=== PATIENT | male | born 1940 | race Caucasian/White ===

== ENCOUNTER 2016-10-30 07:24 | Day surgery (SDC) | payer OTHER, BC ==
[~2016-10-30 07:24] MED LIST: BORTEZOMIB SQ ONE
[2016-10-30] MEDS ORDERED: BORTEZOMIB (VELCADE) 2.5 MG/ML SUB-Q INJECTION SQ ONE (08:00)
[2016-10-30 10:06] LABS: BASOPHIL 0.5 % (0-2.0); EOSINOPHIL 2.5 % (0-4.5); MCH 31.9 pg (25.7-33.7); MCHC 32.7 g/dl (32.0-35.9); MEAN CELL VOLUME 97.5 fl (80-96); MEAN PLT VOLUME 9.2 fl (7.5-11.1); NEUTROPHILS 65.2 % (42.8-82.8); PLATELET COUNT 113 K/MM3 (134-434); RDW 15.3 % (11.9-15.9); WHITE BLOOD COUNT 5.6 K/mm3 (4.0-10.0)
[2016-10-30 15:19] VITALS: BP 117/69; PULSE 59; TEMP 97.9; BMI 27.1
== END 2016-10-30 15:26 | disposition home or self-care (01) ==
LOC: JINFUSION 07:24 → JONCCHEMO 07:24 → J7W 07:25 → JINFUSION 15:26
PROVIDERS: ATTEND Internal Medicine Hematology & Oncology
DX: Z51.11 Encounter for antineoplastic chemotherapy (principal); C90.00 Multiple myeloma not having achieved remission; I10 Essential (primary) hypertension; E78.00 Pure hypercholesterolemia, unspecified; M81.0 Age-related osteoporosis without current pathological fracture; G62.9 Polyneuropathy, unspecified
CPT/HCPCS: 96401; J9041; 36415; 85025

== ENCOUNTER 2016-11-06 09:45 | Day surgery (SDC) | payer OTHER, BC ==
[2016-11-06] MEDS ORDERED: BORTEZOMIB (VELCADE) 2.5 MG/ML SUB-Q INJECTION SQ ONE (11:00)
[2016-11-06 11:09] LABS: MCH 32.1 pg (25.7-33.7); MCHC 32.8 g/dl (32.0-35.9); MEAN CELL VOLUME 97.9 fl (80-96); MEAN PLT VOLUME 9.3 fl (7.5-11.1); PLATELET COUNT 131 K/MM3 (134-434); RDW 15.5 % (11.9-15.9); WHITE BLOOD COUNT 5.8 K/mm3 (4.0-10.0)
[2016-11-06 11:10] LABS: BASOPHIL 0.8 % (0-2.0); EOSINOPHIL 2.9 % (0-4.5); NEUTROPHILS 64.8 % (42.8-82.8)
[2016-11-06 17:07] VITALS: BP 129/78; PULSE 61; TEMP 97.6; BMI 27.1
== END 2016-11-06 13:00 | disposition home or self-care (01) ==
LOC: JONCCHEMO 09:45 → J7W 12:26 → JONCCHEMO 13:00
PROVIDERS: ATTEND Internal Medicine Hematology & Oncology
DX: Z51.11 Encounter for antineoplastic chemotherapy (principal); C90.00 Multiple myeloma not having achieved remission; I10 Essential (primary) hypertension; E78.00 Pure hypercholesterolemia, unspecified; M81.0 Age-related osteoporosis without current pathological fracture; G62.9 Polyneuropathy, unspecified
CPT/HCPCS: 96401; J9041; 36415; 85025

== ENCOUNTER 2016-11-13 07:12 | Day surgery (SDC) | payer OTHER, BC ==
[2016-11-13] MEDS ORDERED: BORTEZOMIB (VELCADE) 2.5 MG/ML SUB-Q INJECTION SQ ONE ×2 (08:00)
[2016-11-13 09:57] LABS: BASOPHIL 0.4 % (0-2.0); EOSINOPHIL 2.1 % (0-4.5); MCH 32.3 pg (25.7-33.7); MCHC 32.8 g/dl (32.0-35.9); MEAN CELL VOLUME 98.6 fl (80-96); MEAN PLT VOLUME 9.5 fl (7.5-11.1); NEUTROPHILS 74.8 % (42.8-82.8); PLATELET COUNT 138 K/MM3 (134-434); RDW 15.2 % (11.9-15.9); WHITE BLOOD COUNT 7.9 K/mm3 (4.0-10.0)
[2016-11-13 15:07] VITALS: BP 106/64; PULSE 62; TEMP 97.7
== END 2016-11-13 13:00 | disposition home or self-care (01) ==
LOC: JONCCHEMO 07:12 → J7W 10:39 → JONCCHEMO 13:00
PROVIDERS: ATTEND Internal Medicine Hematology & Oncology
PROC: 3E00X05 Introduction of Other Antineoplastic into Skin and Mucous Membranes, External Approach (ICD-10-PCS; principal; 2016-11-13)
DX: Z51.11 Encounter for antineoplastic chemotherapy (principal); C90.00 Multiple myeloma not having achieved remission; I10 Essential (primary) hypertension
CPT/HCPCS: 96401; J9041; 36415; 85025

== ENCOUNTER 2016-11-20 06:55 | Day surgery (SDC) | payer OTHER, BC ==
[2016-11-20] MEDS ORDERED: BORTEZOMIB (VELCADE) 2.5 MG/ML SUB-Q INJECTION SQ ONE (08:00)
[2016-11-20] MEDS ORDERED: ZOLEDRONIC ACID 4 MG in SODIUM CHLORIDE 100 ML IVPB ONE (09:00)
[2016-11-20 12:04] VITALS: BP 116/73; PULSE 58; TEMP 97
[2016-11-20 12:07] LABS: WHITE BLOOD COUNT 6.2 K/mm3 (4.0-10.0)
[2016-11-20 12:09] LABS: MCH 32.3 pg (25.7-33.7); MEAN CELL VOLUME 97.1 fl (80-96)
[2016-11-20 12:10] LABS: MCHC 33.2 g/dl (32.0-35.9); RDW 15.3 % (11.9-15.9)
[2016-11-20 12:11] LABS: MEAN PLT VOLUME 9.3 fl (7.5-11.1); NEUTROPHILS 69.3 % (42.8-82.8); PLATELET COUNT 111 K/MM3 (134-434)
[2016-11-20 12:12] LABS: EOSINOPHIL 3.1 % (0-4.5)
[2016-11-20 12:13] LABS: BASOPHIL 0.5 % (0-2.0)
== END 2016-11-20 12:00 | disposition home or self-care (01) ==
LOC: JONCCHEMO 06:55 → J7W 09:45 → JONCCHEMO 12:00
PROVIDERS: ATTEND Internal Medicine Hematology & Oncology
PROC: 3E01305 Introduction of Other Antineoplastic into Subcutaneous Tissue, Percutaneous Approach (ICD-10-PCS; principal; 2016-11-20)
PROC: 3E033GC Introduction of Other Therapeutic Substance into Peripheral Vein, Percutaneous Approach (ICD-10-PCS; 2016-11-20)
DX: Z51.11 Encounter for antineoplastic chemotherapy (principal); C90.00 Multiple myeloma not having achieved remission; I10 Essential (primary) hypertension
CPT/HCPCS: 96365; 96401; J3489; J9041; 36415; 85025

== ENCOUNTER 2016-12-05 19:31 | Emergency (ER) | payer OTHER, BC ==
[2016-12-05] MEDS ORDERED: SODIUM CHLORIDE 500 ML IV STA (20:42)
--- NOTE | 2016-12-05 20:56 | PDOC ---
History of Present Illness - General Chief Complaint: Injury Stated Complaint: FALL Time Seen by Provider: 12/05/16 20:12 History Source: Patient, Significant Other () Exam Limitations: No Limitations - History of Present Illness Initial Comments: 12/05/16 20:43 76yo Male patient w/ PmHx: Parotid CA, Multiple Myeloma (Dx: 4 yrs ago), Afib, Colon Resection with Colostomy, on chemotherapy presents to ED c/o Syncope with + LOC. Patient states while getting ready to go for chemotherapy yesterday, he passed out for a few seconds at home. 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 took B/p- 90/40 at that time. Patient states he would not have come in, but his is having pain in his pelvic region and unable to ambulate. He usually ambulates with walker or cane, but has not been able to get out of bed normally. Reports blood thinner use. Receives chemo injections ( IM every Friday, IV once a month). Patient also states he started a new chemo medication called "Revlaved." He denies CP, Abd pain, back pain, n/v/d, fever, confusion, disorientation, or any other complaints at this time. Dr. Wallace (Oncology) Dr. Lopez (PCP) Occurred: reports: yesterday (Morning) Severity: reports: moderate Pain Location: reports: lower extremity, other (Right ribs) Method of Injury: Yes: fall Modifying Factors: worse with: None, cold therapy, immobilization, pain medication, rest, other Loss of Consciousness: brief (seconds) Associated Symptoms (Fall): trouble walking Past History - Travel Traveled outside of the country in the last 30 days: No Close contact w/someone who was outside of country & ill: No - Past Medical History Allergies/Adverse Reactions: Allergies Allergy/AdvReac Type Severity Reaction Status Date / Time No Known Drug Allergies Allergy Verified 12/05/16 20:11 Home Medications: Ambulatory Orders Paroxetine HCl [Paxil -] 30 mg PO DAILY 01/05/16 Levothyroxine [Synthroid -] 50 mcg PO DAILY@0700 tablet NS 03/21/16 Pantoprazole Sodium [Protonix -] 40 mg PO DAILY tablet.ec NS 07/07/16 Valacyclovir HCl [Valtrex -] 500 mg PO DAILY tablet NS 03/21/16 Apixaban [Eliquis -] 5 mg PO BID tablet 07/11/16 Valsartan [Diovan] 80 mg PO DAILY tablet 07/11/16 Sotalol HCl [Betapace -] 80 mg PO DAILY 10/30/16 Pregabalin [Lyrica -] 50 mg PO BID 11/06/16 Lenalidomide [Revlimid] 10 mg PO DAILY 12/05/16 Baclofen [Lioresal -] 10 mg PO TID PRN #21 tablet 12/06/16 Anemia: Yes Asthma: No Cancer: Yes (multiple myeloma, melanoma, parotid) Cardiac Disorders: No CVA: No COPD: No CHF: No Dementia: No Diabetes: No GI Disorders: No Disorders: No HTN: Yes Hypercholesterolemia: No Liver Disease: No Seizures: No Thyroid Disease: No - Surgical History Abdominal Surgery: No Appendectomy: No Cardiac Surgery: No Cholecystectomy: No Lung Surgery: No Neurologic Surgery: No Orthopedic Surgery: Yes (VERTEBROPLASTY) - Immunization History Immunization Up to Date: Yes - Psycho/Social/Smoking Cessation Hx Anxiety: No Suicidal Ideation: No Smoking History: Never smoked Have you smoked in the past 12 months: No Number of Cigarettes Smoked Daily: 0 Information on smoking cessation initiated: No Hx Alcohol Use: No Drug/Substance Use Hx: No Substance Use Type: None Hx Substance Use Treatment: No Trauma Specific PMHX - Complaint Specific PMHX Arthritis: No Back Injury: No Neck Injury: No Hx Sacro Iliac Joint Dysfunction: No Review of Systems - Review of Systems Able to Perform ROS?: Yes Is the patient limited Yi proficient: No Constitutional: No: Chills, Fever, Malaise, Weakness HEENTM: No: Blurred Vision, Double Vision Respiratory: No: Cough, Shortness of Breath, Stridor, Wheezing Cardiac (ROS): Yes: Syncope. No: Chest Pain, Irregular Heart Rate, Lightheadedness, Palpitations, Chest Tightness ABD/GI: No: Constipated, Diarrhea, Nausea, Poor Appetite, Poor Fluid Intake, Rectal Bleeding, Vomiting, Abdominal cramping : No: Burning, Dysuria, Flank Pain, Hematuria, Pain, Urgency, Testicular Swelling, Testicular Pain Musculoskeletal: Yes: Joint Pain, Muscle Weakness, Other (Pelvic Pain). No: Back Pain, Muscle Pain, Neck Pain Integumentary: No: Bruising, Erythema, Pallor, Rash Neurological: Yes: Unsteady Gait. No: Headache, Paresthesia, Seizure, Tingling , Tremors, Weakness, Ataxia, Dizziness All Other Systems: Reviewed and Negative *Physical Exam - Vital Signs Last Vital Signs Temp Pulse Resp BP Pulse Ox 98.9 F 66 19 116/59 90 L 12/05/16 20:06 12/05/16 20:06 12/05/16 20:06 12/05/16 20:06 12/05/16 20:06 - Physical Exam General Appearance: Yes: Nourished, Appropriately Dressed, Mild Distress. No: Apparent Distress, Moderate Distress, Severe Distress Neck: positive: Trachea midline, Supple. negative: Rigid, Decreased range of motion, Stridor, Lymphadenopathy (R), Lymphadenopathy (L), Tender lateral, Tender midline Respiratory/Chest: positive: Lungs Clear, Decreased Breath Sounds. negative: Chest Tender, Respiratory Distress, Accessory Muscle Use, Labored Respiration, Rapid RR Cardiovascular: positive: Regular Rhythm, Regular Rate. negative: Edema, JVD, Murmur Gastrointestinal/Abdominal: positive: Soft, Decreased BS, Other (Colostomy Stoma pink w/o bleeding or pallor.). negative: Tender, Flat, Distended, Guarding, Rebound, Tenderness Male Genitalia: positive: normal genitalia. negative: discharge, testicular tenderness, testicular mass, epididymus tender, hematuria Musculoskeletal: positive: Normal Inspection. negative: CVA Tenderness Extremity: positive: Normal Capillary Refill, Tender (Right Hip), Pelvis Stable (with Tenderness.). negative: Normal Range of Motion, Calf Tenderness, Erythema , Inflammation Integumentary: positive: Normal Color, Dry, Warm. negative: Rash Neurologic: positive: dietitian teaching II-XII NML intact, Fully Oriented, Alert, Normal Mood/ Affect, Normal Response ED Treatment Course - LABORATORY CBC & Chemistry Diagram: 12/05/16 21:05 12/05/16 23:10 - RADIOLOGY Radiology Studies Ordered: Category Date Time Status CERVICAL SPINE CT W/O CONTR [CT] Stat CT Scan 12/05/16 20:[address] WITHOUT CONTRAST [CT] Stat CT Scan 12/05/16 20:40 Ordered CHEST PA & LAT [RAD] Stat Radiology 12/05/16 20:40 Ordered HIP & PELVIS-LEFT [RAD] Stat Radiology 12/05/16 20:40 Ordered HIP & PELVIS-RIGHT [RAD] Stat Radiology 12/05/16 20:40 Ordered RIBS-LEFT SIDE [RAD] Stat Radiology 12/05/16 20:40 Ordered Progress Note - Progress Note Progress Note: Patient refusing to be admitted to hospital at this time. Patient requesting IV hydration and d/c to home. States he will f/u with PCP. Will hydrate patient and d/c to home. states that if any change, she will return immediately. *DC/Admit/Observation/Transfer Diagnosis at time of Disposition: Syncope and collapse, Dehydration - Discharge Dispostion Disposition: HOME Condition at time of disposition: Stable Admit: No - Prescriptions Prescriptions: Baclofen [Lioresal -] 10 mg PO TID PRN #21 tablet PRN Reason: Musculoskeletal Pain - Referrals Referrals: Caren Lopez MD [Primary Care Provider] - - Patient Instructions Printed Discharge Instructions: DI for Syncope in Adults (Fainting), DI for Dehydration -- Adult Additional Instructions: FOLLOW UP WITH YOUR PRIMARY CARE PROVIDER WITHIN 2 DAYS FOR FURTHER EVALUATION. TAKE MEDICATIONS PRESCRIBED. INCREASE YOUR FLUID INTAKE. DRINK PLENTY WATER. RETURN IF SYMPTOMS WORSEN, OR ANY CONCERNS FOR FURTHER EVALUATION. Print Language: KAZAKH
[2016-12-05 21:12] VITALS: TEMP 98.9; BMI 25.0
[2016-12-05 21:14] LABS: BASOPHIL 0.2 % (0-2.0); EOSINOPHIL 2.2 % (0-4.5); MCHC 33.3 g/dl (32.0-35.9); MEAN CELL VOLUME 99.2 fl (80-96); MEAN PLT VOLUME 9.6 fl (7.5-11.1); NEUTROPHILS 78.3 % (42.8-82.8); PLATELET COUNT 150 K/MM3 (134-434); RDW 15.8 % (11.9-15.9)
[2016-12-05 21:32] LABS: INR 1.71 (0.82-1.09)
--- NOTE | 2016-12-05 21:35 | PDOC ---
[id number] 90 L 12/05/16 20:06 12/05/16 20:06 12/05/16 20:06 12/05/16 20:06 12/05/16 20:06 ED Treatment Course - LABORATORY CBC & Chemistry Diagram: 12/05/16 21:05 12/05/16 23:10 - ADDITIONAL ORDERS Additional order review: 12/05/16 21:05 RBC 3.42 L MCV 99.2 H MCHC 33.3 RDW 15.8 MPV 9.6 Neutrophils % 78.3 Lymphocytes % 4.5 L D Monocytes % 14.8 H Eosinophils % 2.2 Basophils % 0.2 Medical Decision Making - Medical Decision Making 12/05/16 21:34 agree with care from [employer] [facility] Clarence *DC/Admit/Observation/Transfer Diagnosis at time of Disposition: Syncope and collapse, Dehydration - Discharge Dispostion Disposition: HOME Condition at time of disposition: Stable - Prescriptions Prescriptions: Baclofen [Lioresal -] 10 mg PO TID PRN #21 tablet PRN Reason: Musculoskeletal Pain - Referrals Referrals: Caren Lopez MD [Primary Care Provider] - - Patient Instructions Printed Discharge Instructions: DI for Syncope in Adults (Fainting), DI for Dehydration -- Adult Additional Instructions: FOLLOW UP WITH YOUR PRIMARY CARE PROVIDER WITHIN 2 DAYS FOR FURTHER EVALUATION. TAKE MEDICATIONS PRESCRIBED. INCREASE YOUR FLUID INTAKE. DRINK PLENTY WATER. RETURN IF SYMPTOMS WORSEN, OR ANY CONCERNS FOR FURTHER EVALUATION. Print Language: CYMRAES - Post Discharge Activity
[2016-12-05] MEDS ORDERED: morphine CARPU-JECT 4 MG/1 ML DISP.SYRIN IVPUSH ONE (22:08)
[2016-12-05] MEDS ORDERED: morphine CARPU-JECT 4 MG/1 ML DISP.SYRIN ONE (22:12)
[2016-12-06 00:04] LABS: ALBUMIN 3.2 g/dl (3.4-5.0); ANION GAP 8 (8-16); CO2 29 mmol/L (21-32); CREATININE 1.2 mg/dL (0.7-1.3); GLUCOSE,RANDOM 101 mg/dL (74-106); SGOT/AST 21 U/L (15-37); SGPT/ALT 21 U/L (12-78)
[2016-12-06 00:07] LABS: ALK PHOS 59 U/L (45-117); BILIRUBIN,TOTAL 1.7 mg/dL (0.2-1.0); TROPONIN I < 0.02 ng/ml (0.00-0.05)
[2016-12-06 00:36] LABS: URINE APPEARANCE SLCLOUDY; URINE BILIRUBIN NEGATIVE (NEGATIVE); URINE BLOOD NEGATIVE (NEGATIVE); URINE COLOR YELLOW; URINE GLUCOSE (UA) NEGATIVE (NEGATIVE); URINE KETONE TRACE (NEGATIVE); URINE LEUK ESTERASE NEGATIVE (NEGATIVE); URINE NITRITE NEGATIVE (NEGATIVE); URINE UROBILINOGEN NEGATIVE E.U./dl (0.2-1.0)
[2016-12-06] MEDS ORDERED: METHOCARBAMOL 500 MG TABLET PO ONE (00:38)
[2016-12-06 00:51] LABS: URINE PROTEIN 2+ (NEGATIVE)
[2016-12-06] MEDS ORDERED: METHOCARBAMOL 500 MG TABLET ONE (00:55)
[2016-12-06 00:57] LABS: URINE BACTERIA RARE /hpf (NONE SEEN); URINE HYALINE CAST 4 /lpf; URINE MUCUS MODERATE; URINE RBC 2 /hpf (0-3); URINE WBC 8 /hpf (3-5)
[2016-12-06] MEDS ORDERED: SODIUM CHLORIDE 1,000 ML IV STA (01:44)
[2016-12-06 03:27] VITALS: BP 133/76; PULSE 58
--- NOTE | 2016-12-06 10:02 | EKG ---
Test Reason : Blood Pressure : / mmHG Vent. Rate : 064 BPM Atrial Rate : 064 BPM P-R Int : 198 ms QRS Dur : 088 ms QT Int : 428 ms P-R-T Axes : 003 019 046 degrees QTc Int : 441 ms NORMAL SINUS RHYTHM NORMAL ECG WHEN COMPARED WITH ECG OF 09-JUL-2016 11:16, NO SIGNIFICANT CHANGE WAS FOUND Confirmed by EDILMA ALICEA MD ([id number]) on 12/06/2016 10:02:26 AM Referred By: Confirmed By:EDILMA ALICEA MD
== END 2016-12-06 03:28 | disposition home or self-care (01) ==
LOC: JER 19:31
DX: R55 Syncope and collapse (principal); I48.91 Unspecified atrial fibrillation; Z79.01 Long term (current) use of anticoagulants; C90.00 Multiple myeloma not having achieved remission; D03.8 Melanoma in situ of other sites; Z93.3 Colostomy status
CPT/HCPCS: 36415; 70450-TC; 71010-TC; 71101-TC-RT; 72125-TC; 73523-TC; 80053; 81003; 81015; 82550; 84484; 85025; 85610; 93005; 93010; 99283-25

== ENCOUNTER 2017-01-09 15:32 | Observation (INO) | payer OTHER, BC ==
--- NOTE | 2017-01-09 16:08 | PDOC ---
History of Present Illness <Colette Cruz - Last Filed: 01/09/17 19:00> <Nayeli Fonseca - Last Filed: 01/09/17 20:02> <CesiaNoel - Last Filed: 01/09/17 20:09> - General Chief Complaint: Syncope/Near Syncope Stated Complaint: Syncope/Near Syncope Time Seen by Provider: 01/09/17 15:49 - History of Present Illness Initial Comments: 01/09/17 18:59 The patient is a 76 year old male with a past medical hx of Parotid CA, Multiple Myeloma (Dx: 4 yrs ago), Afib, Colon Resection with Colostomy who presents to the ED for evaluation of a syncopal episode this afternoon. The patient's son reports he was giving the patient a bath with the aide. The patient reports he felt fine during his bath. The son and his aide helped him to walk approximately 8 feet to the living room. The patient reports he started to feel a little weak so the son gave him a chair to sit in. The son reports he then lost consciousness for approximately 25 seconds after he sat. The patient reports he felt nauseous after this episode but he denies any vomiting. The son states he then appeared to be pale and diaphoretic. He states the aide checked his blood pressure following this episode and it was normal. Pt denies any chagne in his colostomy bag output - no blood/diarrhea. The patient denies chest pain, palpitations, SOB, headache, neck pain, abd pain , extremity pain, numbnes/tingling/weakness, cough, fever/chills. PCP: Dr. Lopez (Colette Cruz) Past History <Colette Cruz - Last Filed: 01/09/17 19:00> <Nayeli Fonseca - Last Filed: 01/09/17 20:02> - Past Medical History Anemia: Yes Asthma: No Cancer: Yes (multiple myeloma, melanoma, parotid) Cardiac Disorders: No CVA: No COPD: No CHF: No Dementia: No Diabetes: No GI Disorders: No Disorders: No HTN: Yes Hypercholesterolemia: No Liver Disease: No Seizures: No Thyroid Disease: No - Surgical History Abdominal Surgery: Yes (COLOSTOMY) Appendectomy: No Cardiac Surgery: No Cholecystectomy: No Lung Surgery: No Neurologic Surgery: No Orthopedic Surgery: Yes (VERTEBROPLASTY) - Immunization History Immunization Up to Date: Yes - Psycho/Social/Smoking Cessation Hx Anxiety: No Suicidal Ideation: No Smoking History: Never smoked Have you smoked in the past 12 months: No Number of Cigarettes Smoked Daily: 0 Hx Alcohol Use: No Drug/Substance Use Hx: No Substance Use Type: None Hx Substance Use Treatment: No <Noel Callaway - Last Filed: 01/09/17 20:09> - Past Medical History Allergies/Adverse Reactions: Allergies Allergy/AdvReac Type Severity Reaction Status Date / Time No Known Drug Allergies Allergy Verified 01/09/17 15:42 Home Medications: Ambulatory Orders Paroxetine HCl [Paxil -] 30 mg PO DAILY 01/05/16 Levothyroxine [Synthroid -] 50 mcg PO DAILY@0700 tablet NS 03/21/16 Pantoprazole Sodium [Protonix -] 40 mg PO DAILY tablet.ec NS 03/21/16 Valacyclovir HCl [Valtrex -] 500 mg PO DAILY tablet NS 03/21/16 Apixaban [Eliquis -] 5 mg PO BID tablet 07/11/16 Valsartan [Diovan] 80 mg PO DAILY tablet 07/11/16 Sotalol HCl [Betapace -] 80 mg PO DAILY 10/30/16 Pregabalin [Lyrica -] 50 mg PO BID 11/06/16 Lenalidomide [Revlimid] 10 mg PO DAILY 12/05/16 Baclofen [Lioresal -] 10 mg PO TID PRN #21 tablet 12/06/16 Cardiac Specific PMH - Complaint Specific PMHX Pacemaker: No <Noel Callaway - Last Filed: 01/09/17 20:09> Review of Systems - Review of Systems Able to Perform ROS?: Yes <Colette Cruz - Last Filed: 01/09/17 19:00> <Nayeli Fonseca - Last Filed: 01/09/17 20:02> <Noel Callaway - Last Filed: 01/09/17 20:09> - Review of Systems Comments:: 01/09/17 19:00 CONSTITUTIONAL: No reported: Fever, Chills, Diaphoresis, Generalized Weakness, Malaise, Loss of Appetite HEENT: No reported: Rhinorrhea, Nasal Congestion, Throat Pain, Throat Swelling, Difficulty Swallowing, Mouth Swelling, Ear Pain, Eye Pain, Visual Changes CARDIOVASCULAR: +Syncope. No reported: Chest Pain, Palpitations, Irregular Heart Rate, Lightheadedness, Peripheral Edema RESPIRATORY: No reported: Cough, Shortness of Breath, SOB with Exertion, Orthopnea, Wheezing , Stridor, Hemoptysis GASTROINTESTINAL: No reported: Abdominal pain, Abdominal Distension, Nausea, Vomiting, Diarrhea, Constipation, Melena, Hematochezia GENITOURINARY: No reported: Dysuria, Frequency, Urgency, Hesitancy, Flank Pain, Genital Pain MUSCULOSKELETAL: No reported: Myalgia, Arthralgia, Joint Swelling, Back pain, Neck Pain SKIN: No reported: Rash, Itching, Pallor HEMEATOLOGIC/IMMUNOLOGIC: No reported: Easy Bleeding, Easy Bruising, Lymphadenopathy, Frequent infections ENDOCRINE: No reported: Unexplained Weight Gain, Unexplained Weight Loss, Heat Intolerance , Cold Intolerance NEUROLOGIC: No reported: Headache, Focal Weakness, Paresthesias, Vertigo, Lightheadedness, Unsteady Gait, Seizure, Mental Status Changes, Incontinence PSYCHIATRIC: No reported: Anxiety, Depression (Colette Cruz) *Physical Exam <Colette Cruz - Last Filed: 01/09/17 19:00> <Nayeli Fonseca - Last Filed: 01/09/17 20:02> <Noel Callaway - Last Filed: 01/09/17 20:09> - Vital Signs Last Vital Signs Temp Pulse Resp BP Pulse Ox 98.4 F 74 16 103/66 95 01/09/17 15:42 01/09/17 15:42 01/09/17 15:42 01/09/17 15:42 01/09/17 15:42 - Physical Exam Comments: 01/09/17 19:00 GENERAL: The patient is awake, alert, and fully oriented, Nontoxic - in no acute distress. 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 ENT: Normal voice, Moist mucous membranes. NECK: Normal range of motion, supple LUNGS: Breath sounds equal, clear to auscultation bilaterally. No wheezes, no rhonchi, no rales. HEART: Regular rate and rhythm, normal S1 and S2 without murmur, rub or gallop. ABDOMEN: +colostomy in place, Soft, nontender, normoactive bowel sounds. No guarding, no rebound. . No CVA tenderness EXTREMITIES: Normal range of motion, no edema. No clubbing or cyanosis. No cords, erythema, or tenderness. NEUROLOGICAL: No facial assymetry, Normal speech, moving all 4 extremities spontaneously and symmetrically, PSYCH: Normal mood, normal affect. SKIN: Warm, Dry, normal turgor, (Colette Cruz) Heart Score/ECG Review <Colette Cruz - Last Filed: 01/09/17 19:00> <Nayeli Fonseca - Last Filed: 01/09/17 20:02> <Noel Callaway - Last Filed: 01/09/17 20:09> - ECG Impressions Comment:: 01/09/17 17:43 Twelve-lead EKG was performed and reviewed by me. There is normal sinus rhythm with a normal rate. Rate of 67 The axis is normal. The intervals are normal. There is normal R wave progression There are no ST or T wave abnormalities. Impression: Normal twelve-lead EKG (Noel Callaway) ED Treatment Course - LABORATORY CBC & Chemistry Diagram: 01/09/17 16:50 01/09/17 16:50 <Colette Cruz - Last Filed: 01/09/17 19:00> - LABORATORY CBC & Chemistry Diagram: 01/09/17 18:00 01/09/17 18:00 <Nayeli Fonseca - Last Filed: 01/09/17 20:02> - LABORATORY CBC & Chemistry Diagram: 01/09/17 18:00 01/09/17 18:00 <Noel Callaway - Last Filed: 01/09/17 20:09> - ADDITIONAL ORDERS Additional order review: Laboratory Results 01/09/17 01/09/17 01/09/17 18:00 18:00 18:00 INR 1.24 H Sodium 138 Potassium 5.6 H D Chloride 102 Carbon Dioxide 26 Anion Gap 10 BUN 27 H Creatinine 1.0 Creat Clearance w eGFR > 60 Random Glucose 93 Calcium 10.1 Magnesium Cancelled Total Bilirubin 0.7 D AST 36 D ALT 30 D Alkaline Phosphatase 132 H D Creatine Kinase 83 Troponin I < 0.02 Total Protein 9.1 H Albumin 3.5 01/09/17 01/09/17 16:50 16:50 INR Cancelled Sodium Cancelled Potassium Cancelled Chloride Cancelled Carbon Dioxide Cancelled Anion Gap Cancelled BUN Cancelled Creatinine Cancelled Creat Clearance w eGFR Cancelled Random Glucose Cancelled Calcium Cancelled Magnesium Cancelled Total Bilirubin Cancelled AST Cancelled ALT Cancelled Alkaline Phosphatase Cancelled Creatine Kinase Cancelled Troponin I Cancelled Total Protein Cancelled Albumin Cancelled 01/09/17 01/09/17 18:00 16:50 RBC 3.63 L Cancelled MCV 101.2 H Cancelled MCHC 32.9 Cancelled RDW 16.9 H Cancelled MPV 9.4 Cancelled Neutrophils % 78.4 Cancelled Lymphocytes % 8.0 D Cancelled Monocytes % 11.7 H Cancelled Eosinophils % 1.5 Cancelled Basophils % 0.4 Cancelled - RADIOLOGY Radiology Studies Ordered: Category Date Time Status CHEST X-RAY PORTABLE* [RAD] Stat Radiology 01/09/17 15:52 Completed - Medications Given in the ED: ED Medications Discontinued Medications Generic Name Dose Route Start Last Admin Trade Name Freq PRN Reason Stop Dose Admin Sodium Chloride 1,000 mls @ 1,000 mls/hr 01/09/17 17:06 01/09/17 17:41 Normal Saline - IV 01/09/17 18:05 1,000 mls/hr .Q1H ONE Administration Medical Decision Making <Colette Cruz - Last Filed: 01/09/17 19:00> <Nayeli Fonseca - Last Filed: 01/09/17 20:02> <Noel Callaway - Last Filed: 01/09/17 20:09> - Medical Decision Making 01/09/17 18:[address] Lopez at 18:58, awaiting call back. 01/09/17 19:00 Dr. Lopez called back at 19:00. He states he agrees with the plan and management for the patient. If all testing comes back negative, Dr. Lopez states he is comfortable having the patient discharged home and having him follow up with him in the office as an outpatient. Dr. Lopez agrees if anything comes back positive to touch base with him and come up with an alternative plan. (Colette Cruz) 01/09/17 20:[address] Caren Lopez (via answering service) at 20:02 Awaiting call back (Nayeli Fonseca) 01/09/17 17:16 76y M hx of parotid ca, MM, afib on a/c, colon resection with colstomy presents with episoe of syncope today, had taken a shower and was feeling well, as he was getting out he felt weak, sat down, then syncopized for approx 20 seconds, no associated pain. exam unremarkble ?orthostasis, anemia, emtabolic derangement, arrythmia will ck labs, vidya hydrate with fluids will obtain ekg to r/o arrythmia will reassess will discuss with dr. lopez 01/09/17 20:04 labs reveiewed noted mild hyperkalemia case dw dr. lopez and dr. ludwig sine this is the 2ndtime pt syncopized, will observe the pt in telmetry pt currelyt asymptomatic Case discussed in detail with admitting physician including history, physical exam and ancillary studies. Admitting physician has assumed care for the patient, will follow all pending diagnostics and will complete the evaluation and treatment. (Noel Callaway) *DC/Admit/Observation/Transfer <Colette Cruz - Last Filed: 01/09/17 19:00> <Nayeli Fonseca - Last Filed: 01/09/17 20:02> - Discharge Dispostion Admit: Yes <Noel Callaway - Last Filed: 01/09/17 20:09> Diagnosis at time of Disposition: Syncope - Discharge Dispostion Condition at time of disposition: Guarded - Referrals Referrals: Caren Lopez MD [Primary Care Provider] - - Attestations Scribe Attestion: 01/09/17 18:59 Documentation prepared by Colette Cruz, acting as medical education manager for Noel Callaway MD, /DO. (Colette Cruz)
[2017-01-09] MEDS ORDERED: SODIUM CHLORIDE 1,000 ML IV ONE (17:06)
[2017-01-09 18:58] LABS: BASOPHIL 0.4 % (0-2.0); EOSINOPHIL 1.5 % (0-4.5); MCH 33.3 pg (25.7-33.7); MCHC 32.9 g/dl (32.0-35.9); MEAN CELL VOLUME 101.2 fl (80-96); MEAN PLT VOLUME 9.4 fl (7.5-11.1); NEUTROPHILS 78.4 % (42.8-82.8); PLATELET COUNT 234 K/MM3 (134-434); RDW 16.9 % (11.9-15.9); WHITE BLOOD COUNT 10.5 K/mm3 (4.0-10.0)
[2017-01-09 19:04] LABS: INR 1.24 (0.82-1.09); PROTHROMBIN TIME (PATIENT) 13.7 SEC (9.98-11.88)
[2017-01-09 19:19] LABS: ALBUMIN 3.5 g/dl (3.4-5.0); ALK PHOS 132 U/L (45-117); ANION GAP 10 (8-16); BILIRUBIN,TOTAL 0.7 mg/dL (0.2-1.0); CALCIUM 10.1 mg/dL (8.5-10.1); CO2 26 mmol/L (21-32); COCKROFT - GAULT 72.57; GLUCOSE,RANDOM 93 mg/dL (74-106); SGOT/AST 36 U/L (15-37); SGPT/ALT 30 U/L (12-78); TOT PROT 9.1 g/dl (6.4-8.2); TROPONIN I < 0.02 ng/ml (0.00-0.05)
[2017-01-09 20:00] LABS: MAGNESIUM 2.1 mg/dL (1.8-2.4)
[2017-01-10 00:35] LABS: URINE APPEARANCE CLEAR; URINE BILIRUBIN NEGATIVE (NEGATIVE); URINE BLOOD NEGATIVE (NEGATIVE); URINE COLOR YELLOW; URINE GLUCOSE (UA) NEGATIVE (NEGATIVE); URINE KETONE TRACE (NEGATIVE); URINE LEUK ESTERASE NEGATIVE (NEGATIVE); URINE NITRITE NEGATIVE (NEGATIVE); URINE UROBILINOGEN NEGATIVE E.U./dl (0.2-1.0)
[2017-01-10 00:56] LABS: URINE PROTEIN 1+ (NEGATIVE)
[2017-01-10 01:10] LABS: URINE HYALINE CAST 10 /lpf; URINE MUCUS FEW; URINE RBC <1 /hpf (0-3); URINE WBC 2 /hpf (3-5)
[2017-01-10] MEDS ORDERED: BACLOFEN 10 MG TABLET (FP) PO PRN (02:25)
[2017-01-10] MEDS: LEVOTHYROXINE NA 50 MCG TABLET (FP) PO SCH (06:14)
[2017-01-10 08:15] LABS: MCH 33.7 pg (25.7-33.7); MCHC 33.4 g/dl (32.0-35.9); MEAN CELL VOLUME 100.9 fl (80-96); MEAN PLT VOLUME 8.4 fl (7.5-11.1); PLATELET COUNT 190 K/MM3 (134-434); RDW 16.4 % (11.9-15.9); WHITE BLOOD COUNT 6.6 K/mm3 (4.0-10.0)
[2017-01-10 09:24] LABS: ALBUMIN 3.1 g/dl (3.4-5.0); ALK PHOS 112 U/L (45-117); ANION GAP 10 (8-16); BILIRUBIN,TOTAL 0.9 mg/dL (0.2-1.0); CALCIUM 9.1 mg/dL (8.5-10.1); CO2 25 mmol/L (21-32); COCKROFT - GAULT 116.27; CREATININE 0.6 mg/dL (0.7-1.3); GLUCOSE,RANDOM 89 mg/dL (74-106); SGOT/AST 20 U/L (15-37); SGPT/ALT 22 U/L (12-78)
[2017-01-10] MEDS ORDERED: SOTALOL HCL 80 MG TABLET (FP) PO SCH (10:00)
[2017-01-10] MEDS: PAROXETINE HCL 20 MG, PAROXETINE HCL 10 MG PO SCH (10:03)
[2017-01-10] MEDS: PANTOPRAZOLE 40 MG TABLET (FP) PO SCH (10:03)
[2017-01-10] MEDS: valACYclovir HCL 500 MG TABLET (FP) PO SCH (10:03)
[2017-01-10] MEDS: VALSARTAN 80 MG TABLET (UD) PO SCH (10:03)
[2017-01-10] MEDS: APIXABAN 5 MG TABLET PO SCH ×2 (10:03→21:34)
[2017-01-10] MEDS: PREGABALIN 50 MG CAPSULE PO SCH ×2 (10:03→21:34)
--- NOTE | 2017-01-10 10:40 | HP ---
Admitting History and Physical - Primary Care Physician PCP: Caren Lopez - Admission Chief Complaint: Transient loss of conciousness History of Present Illness: 76 yrs old man multiple medical co-morbidities present after an episode of TLOC after taking bath, Patient has H/O HTN, Non-obstructive CAD, Paroxysmal Afib rate controlled on AC, Multiple myeloma and rt carotid CA s/p resection and RT, previously evaluated for Syncope in the past, patient took and shower with the help of his son and AID, after shower , while he was walking felt weak and Dizz , sat down on a chair and passed out for 3 seconds, witnessed by son, no seizure activity, no incontinence, to tongue bite no c/o chest pain or palpitation before or after the episode patient experienced nausea and diaphoresis, no post event confusion or focal weakness, patient was brought to [facility] for evaluation remained asymptomatic over night History Source: Patient, Family Member Limitations to Obtaining History: No Limitations - Past Medical History 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 No: Bronchitis (no chronic sputum production says current sputum production isnew) Renal/: Yes: BPH, Neurogenic Bladder, UTI, Other Heme/Onc: Yes: Cancer (Parotid cancer, melanoma), Other (Multiple Myeloma) Infectious Disease: Yes: Other (fever possible aspiration pneumonia) ENT: Yes: Other (legally blind right eye) Dermatology: Yes: Melanoma - Smoking History Smoking history: Never smoked Have you smoked in the past 12 months: No Aproximately how many cigarettes per day: 0 - Alcohol/Substance Use Hx Alcohol Use: No - Social History ADL: Support Services History of Recent Travel: No Home Medications - Allergies Allergies/Adverse Reactions: Allergies Allergy/AdvReac Type Severity Reaction Status Date / Time No Known Drug Allergies Allergy Verified 01/09/17 15:42 - Home Medications Home Medications: Ambulatory Orders Paroxetine HCl [Paxil -] 30 mg PO DAILY 01/05/16 Levothyroxine [Synthroid -] 50 mcg PO DAILY@0700 tablet NS 03/21/16 Pantoprazole Sodium [Protonix -] 40 mg PO DAILY tablet.ec NS 03/21/16 Valacyclovir HCl [Valtrex -] 500 mg PO DAILY tablet NS 03/21/16 Apixaban [Eliquis -] 5 mg PO BID tablet 07/11/16 Valsartan [Diovan] 80 mg PO DAILY tablet 07/11/16 Sotalol HCl [Betapace -] 80 mg PO DAILY 10/30/16 Pregabalin [Lyrica -] 50 mg PO BID 11/06/16 Lenalidomide [Revlimid] 10 mg PO DAILY 12/05/16 Baclofen [Lioresal -] 10 mg PO TID PRN #21 tablet 12/06/16 Review of Systems - Review of Systems Constitutional: reports: Diaphoresis, Malaise Cardiovascular: reports: No Symptoms Respiratory: reports: No Symptoms Gastrointestinal: reports: Nausea Physical Examination Vital Signs: Vital Signs Temperature 98.8 F 01/10/17 10:00 Pulse Rate 77 01/10/17 10:00 Respiratory Rate 19 01/10/17 10:00 Blood Pressure 163/97 01/10/17 10:00 O2 Sat by Pulse Oximetry (%) 92 L 01/10/17 07:33 Labs: CBC, BMP 01/10/17 07:40 01/10/17 07:40 CBC, BMP Imaging - Results Chest X-ray: Report Reviewed (Rt 5th Rib Fracture ? Rt 4yh and 6th rib fracture and , ? Left 7th rib lateral arch fracture) EKG: Report Reviewed, Other (NSr at 67 ID 188 QTC 430 axis normal,) Problem List - Problems (1) Syncope Assessment/Plan: Most likely multi factorial, Neuro Cardiogenic or orthostatic, normal sinus Rhythm, evaluated by cardiology recommended out patient Tilt table/ event monitor Code(s): R55 - SYNCOPE AND COLLAPSE (2) CAD (coronary artery disease) Assessment/Plan: Non obstructive CAd no active issue cont home meds Code(s): I25.10 - ATHSCL HEART DISEASE OF [place] CORONARY ARTERY W/O ANG PCTRS Qualifiers: Qualified Code(s): I25.10 - Atherosclerotic heart disease of [place] coronary artery without angina pectoris (3) Multiple myeloma Assessment/Plan: Under Treatment with Oncologist Suppressive acyclovir and Chemotherapy as oncologist, patient has multiple skeletal mets and # ribs on Revlimid 10 mg, will call oncology consult. Code(s): C90.00 - MULTIPLE MYELOMA NOT HAVING ACHIEVED REMISSION Qualifiers: Qualified Code(s): C90.00 - Multiple myeloma not having achieved remission (4) PAF (paroxysmal atrial fibrillation) Assessment/Plan: At present in NSR on Apaxiban cont all home meds Stotalol , evaluated by Cardiology consult Code(s): I48.0 - PAROXYSMAL ATRIAL FIBRILLATION (5) HTN (hypertension) Assessment/Plan: Well controlled cont home meds Code(s): I10 - ESSENTIAL (PRIMARY) HYPERTENSION Assessment/Plan Active Medications Generic Name Dose Route Start Last Admin Trade Name Freq PRN Reason Stop Dose Admin Apixaban 5 mg 01/10/17 10:00 01/10/17 10:03 Eliquis - PO 5 mg BID BERE Administration Baclofen 10 mg 01/10/17 02:25 Lioresal - PO Q8H PRN Levothyroxine Sodium 50 mcg 01/10/17 07:00 01/10/17 06:14 Synthroid - PO 50 mcg DAILY@0700 BERE Administration Revlimid 10mg 1 each 01/10/17 10:00 PO DAILY BERE Pantoprazole Sodium 40 mg 01/10/17 10:00 01/10/17 10:03 Protonix - PO 40 mg DAILY BERE Administration Paroxetine HCl 20 mg/ 30 mg 01/10/17 10:00 01/10/17 10:03 Paroxetine HCl 10 mg PO 30 mg DAILY BERE Administration Pregabalin 50 mg 01/10/17 10:00 01/10/17 10:03 Lyrica - PO 50 mg BID BERE Administration Sotalol HCl 80 mg 01/10/17 10:00 01/10/17 10:02 Betapace - PO 80 mg DAILY BERE Administration Valacyclovir HCl 500 mg 01/10/17 10:00 01/10/17 10:03 Valtrex - PO 500 mg DAILY BERE Administration Valsartan 80 mg 01/10/17 10:00 01/10/17 10:03 Diovan - PO 80 mg DAILY BERE Administration
--- NOTE | 2017-01-10 11:27 | EKG ---
Test Reason : Blood Pressure : / mmHG Vent. Rate : 067 BPM Atrial Rate : 067 BPM P-R Int : 188 ms QRS Dur : 078 ms QT Int : 430 ms P-R-T Axes : 079 014 055 degrees QTc Int : 454 ms POOR DATA QUALITY, INTERPRETATION MAY BE ADVERSELY AFFECTED NORMAL SINUS RHYTHM NORMAL ECG WHEN COMPARED WITH ECG OF 05-DEC-2016 20:57, NO SIGNIFICANT CHANGE WAS FOUND Confirmed by EDILMA ALICEA MD ([id number]) on 01/10/2017 11:27:03 AM Referred By: Confirmed By:EDILMA ALICEA MD
--- NOTE | 2017-01-10 14:30 | CON.CARD ---
Consult Consult Specialty:: Cardiology Referred by:: Caren Lopez MD Reason for Consultation:: Syncope - History of Present Illness Chief Complaint: Syncope History of Present Illness: Patient is a 76 year old male well known to our service with underlying history of multiple myeloma with widespread spinal involvement with vertebral compression fractures, s/p multiple kyphoplasties and palliative radiation therapy and chemotherapy, melanoma and parotid cancer, PAF and PSVT, perforated viscus and pneumoperitoneum post exploratory laparotomy showing perforated bowel and purulent peritonitis requiring sigmoid resection, colostomy and abdominal washout, rt carotid CA s/p resection and RT. He presented after an episode of transient syncope after taking shower, preceded by prodromal sxs of nausea, dry heaves, sweats and light-headedness, sad down and subsequently passed out for 3 seconds, BP low, witnessed by son, no seizure activity, no incontinence, to tongue bite. He denies chest pain, palpitation, orthopnea, PND or LE edema, no further sxs since admission. - History Source History Provided By: Patient Limitations to Obtaining History: No Limitations - Past Medical History [employer]CH[employer]: Yes: Syncope, Other (Residual right lower neuron facial palsy) Cardio/Vascular: Yes: AFIB, CAD, HTN, Hyperlipdemia, Other (PSVT) Pulmonary: Yes: Other (few ronchi mostly on Rt base). No: Bronchitis (no chronic sputum production says current sputum production isnew) Renal/: Yes: BPH, Neurogenic Bladder, UTI, Other Infectious Disease: Yes: Other (fever possible aspiration pneumonia) ENT: Yes: Other (legally blind right eye) Dermatology: Yes: Melanoma - Alcohol/Substance Use Hx Alcohol Use: No - Smoking History Smoking history: Never smoked Have you smoked in the past 12 months: No Aproximately how many cigarettes per day: 0 - Social History ADL: Support Services History of Recent Travel: No Home Medications - Allergies Allergies/Adverse Reactions: Allergies Allergy/AdvReac Type Severity Reaction Status Date / Time No Known Drug Allergies Allergy Verified 01/09/17 15:42 - Home Medications Home Medications: Ambulatory Orders Paroxetine HCl [Paxil -] 30 mg PO DAILY 01/05/16 Levothyroxine [Synthroid -] 50 mcg PO DAILY@0700 tablet NS 03/21/16 Pantoprazole Sodium [Protonix -] 40 mg PO DAILY tablet.ec NS 07/07/16 Valacyclovir HCl [Valtrex -] 500 mg PO DAILY tablet NS 03/21/16 Apixaban [Eliquis -] 5 mg PO BID tablet 07/11/16 Valsartan [Diovan] 80 mg PO DAILY tablet 07/11/16 Sotalol HCl [Betapace -] 80 mg PO DAILY 10/30/16 Pregabalin [Lyrica -] 50 mg PO BID 11/06/16 Lenalidomide [Revlimid] 10 mg PO DAILY 12/05/16 Baclofen [Lioresal -] 10 mg PO TID PRN #21 tablet 12/06/16 Vital Signs: Vital Signs Temperature 98.8 F 01/10/17 10:00 Pulse Rate 77 01/10/17 10:00 Respiratory Rate 19 01/10/17 10:00 Blood Pressure 163/97 01/10/17 10:00 O2 Sat by Pulse Oximetry (%) 92 L 01/10/17 07:33 Constitutional: Yes: No Distress, Calm Neck: Yes: Supple Respiratory: Yes: Regular, CTA Bilaterally Gastrointestinal: Yes: Normal Bowel Sounds, Soft, Other (colostomy in place) Cardiovascular: Yes: Regular Rate and Rhythm JVD: No Carotid Bruit: No Heart Sounds: Yes: S1, S2 Edema: No - Other Data Labs, Other Data: CBC, BMP 01/10/17 07:40 01/10/17 07:40 INR, PTT INR 1.24 (0.82-1.09) H 01/09/17 18:00 NSR @ 67 Tele: No events Echo: Report Reviewed Ejection Fraction %: LVEF > or = 40 % Imaging - Results Chest X-ray: Report Reviewed (NAD) Assessment/Plan Echo: 01/09/2016 Normal LV size and fxn without sig valve abnl Assessment/Plan 1. Syncope suggestive of vasovagal/neurocardiogenic, ? autonomic dysfunction and labile hypertension referable to XRT to right carotid sinus body 2. PAF currently in sinus rhythm with [id number] score of 3 on A/C with NOAC's 3. PSVT ->SR 4. H/o diverticular perforation with purulent peritonitis post exploratory laparotomy with sigmoid resection, end colostomy and abdominal washout 5. CAD non obstructive CAD, angina pectoris 6. HTN 7. History of multiple myeloma 8. Head and neck CA with vertebral spine involvement post resection post radiation therapy and chemotherapy 9. Anemia PLAN: 1. Check orthostatic vital signs 2. Increase Betapace 80 bid 3. Continue Eliquis 5 bid with close monitoring of CBC 4. Continue Diovan 80 qd as tolerated 5. Consider upright tilt table testing as outpatient, addressed abortive maneuvers once prodromal sxs have been experienced 6. Thank you for consultative opportunity
--- NOTE | 2017-01-10 17:40 | PN ---
Progress Note (short form) - Note Progress Note: Patient seen and examined Well known to me. History of multiple myeloma-not in remission,. Parotid tumor s/p surgery and RT , peroforated dverticulum with peritonitis and colostomy, PAF, SVT, vertebral compression fractures--s/p vertebrop[lasty. Patient had fall weeks ago and has been unable to come to the officeforhis chemotherpy which has included velcade, decadron and revlimid. Current admission for syncope which occurred coming out of shower. No Known allergies Current Medications Generic Name Dose Route Start Last Admin Trade Name Freq PRN Reason Stop Dose Admin Apixaban 5 mg 01/10/17 10:00 01/10/17 10:03 Eliquis - PO 5 mg BID BERE Administration Baclofen 10 mg 01/10/17 02:25 Lioresal - PO Q8H PRN Levothyroxine Sodium 50 mcg 01/10/17 07:00 01/10/17 06:14 Synthroid - PO 50 mcg DAILY@0700 BERE Administration Revlimid 10mg 1 each 01/10/17 10:00 PO DAILY BERE Pantoprazole Sodium 40 mg 01/10/17 10:00 01/10/17 10:03 Protonix - PO 40 mg DAILY BERE Administration Paroxetine HCl 20 mg/ 30 mg 01/10/17 10:00 01/10/17 10:03 Paroxetine HCl 10 mg PO 30 mg DAILY BERE Administration Pregabalin 50 mg 01/10/17 10:00 01/10/17 10:03 Lyrica - PO 50 mg BID BERE Administration Sotalol HCl 80 mg 01/10/17 22:00 Betapace - PO BID BERE Valacyclovir HCl 500 mg 01/10/17 10:00 01/10/17 10:03 Valtrex - PO 500 mg DAILY BERE Administration Valsartan 80 mg 01/10/17 10:00 01/10/17 10:03 Diovan - PO 80 mg DAILY BERE Administration ROS-- no headaches, decreased vision right eye, no epistaxis, no chest pain, back pain supine 3-4 pain scale, motion --7 pain scale, no incontinence, functioning colostomy, paresthesias of LE's bilaterally no skin rashes Last Vital Signs Temp Pulse Resp BP Pulse Ox 97.9 F 81 20 103/71 92 L 01/10/17 14:00 01/10/17 15:37 01/10/17 14:00 01/10/17 15:37 01/10/17 07:33 HEENT:right eye scarring right facial Oropharynx: No thrush, No mucositis Neck: s/p RT - Nodes: Without adenopathy Cor: RSR, No murmurs, No gallops Lungs: Clear to P&A Abd: functioning colostomy Ext:No significant edema Skin: No rashes, Integument intact CBC, BMP 01/10/17 07:40 01/10/17 07:40 Impression Syncope- for evaluation Myeloma -not in remission - to resume chemotherapy when feasible Orthostasis- ?? RT effect on barorecptors PAF, SVT S/P diverticulitis, perforation, peritonitis, and colostomy. Plan: cardiac work up Resumption of chemotherapy in future.
[2017-01-10] MEDS: SOTALOL HCL 80 MG TABLET (FP) PO SCH (21:34)
[2017-01-11] MEDS ORDERED: PT OWN MED DRAWER 7, Y5N ONE ×2 (03:00→08:55)
[2017-01-11] MEDS: LEVOTHYROXINE NA 50 MCG TABLET (FP) PO SCH (06:04)
[2017-01-11 07:26] LABS: BASOPHIL 0.4 % (0-2.0); EOSINOPHIL 5.3 % (0-4.5); MCH 33.6 pg (25.7-33.7); MCHC 32.9 g/dl (32.0-35.9); MEAN CELL VOLUME 102.2 fl (80-96); MEAN PLT VOLUME 8.6 fl (7.5-11.1); NEUTROPHILS 67.5 % (42.8-82.8); PLATELET COUNT 184 K/MM3 (134-434); RDW 17.1 % (11.9-15.9); WHITE BLOOD COUNT 6.3 K/mm3 (4.0-10.0)
[2017-01-11 07:57] LABS: ALBUMIN 3.2 g/dl (3.4-5.0); ALK PHOS 113 U/L (45-117); ANION GAP 8 (8-16); BILIRUBIN,TOTAL 0.4 mg/dL (0.2-1.0); CALCIUM 9.1 mg/dL (8.5-10.1); CO2 27 mmol/L (21-32); COCKROFT - GAULT 116.27; CREATININE 0.6 mg/dL (0.7-1.3); GLUCOSE,RANDOM 94 mg/dL (74-106); SGOT/AST 25 U/L (15-37); SGPT/ALT 26 U/L (12-78); TOT PROT 8.1 g/dl (6.4-8.2)
[2017-01-11] MEDS: APIXABAN 5 MG TABLET PO SCH (09:13)
[2017-01-11] MEDS: PANTOPRAZOLE 40 MG TABLET (FP) PO SCH (09:13)
[2017-01-11] MEDS: VALSARTAN 80 MG TABLET (UD) PO SCH (09:13)
[2017-01-11] MEDS: PREGABALIN 50 MG CAPSULE PO SCH (09:13)
[2017-01-11] MEDS: valACYclovir HCL 500 MG TABLET (FP) PO SCH (09:13)
[2017-01-11] MEDS: SOTALOL HCL 80 MG TABLET (FP) PO SCH (09:13)
[2017-01-11] MEDS: PAROXETINE HCL 20 MG, PAROXETINE HCL 10 MG PO SCH (09:14)
[2017-01-11 10:43] VITALS: BP 148/82; PULSE 78; TEMP 98
--- NOTE | 2017-01-11 10:47 | PN ---
Progress Note, Physician Chief Complaint: Not in distress History of Present Illness: Patient was seen and examined. Awake and alert. Chart was reviewed Denies chest pain, SOB or palpitations Orthostasis earlier - Current Medication List Current Medications: Active Medications Apixaban (Eliquis -) 5 mg PO BID [facility] Last Admin: 01/11/17 09:13 Dose: 5 mg Baclofen (Lioresal -) 10 mg PO Q8H PRN Last Admin: 01/11/17 09:14 Dose: 10 mg Levothyroxine Sodium (Synthroid -) 50 mcg PO DAILY@0700 [facility] Last Admin: 01/11/17 06:04 Dose: 50 mcg Revlimid 10mg 1 each PO DAILY [facility] Pantoprazole Sodium (Protonix -) 40 mg PO DAILY [facility] Last Admin: 01/11/17 09:13 Dose: 40 mg Paroxetine HCl 20 mg/ (Paroxetine HCl 10 mg) 30 mg PO DAILY [facility] Last Admin: 01/11/17 09:14 Dose: 30 mg Pregabalin (Lyrica -) 50 mg PO BID [facility] Last Admin: 01/11/17 09:13 Dose: 50 mg Sotalol HCl (Betapace -) 80 mg PO BID [facility] Last Admin: 01/11/17 09:13 Dose: 80 mg Valacyclovir HCl (Valtrex -) 500 mg PO DAILY [facility] Last Admin: 01/11/17 09:13 Dose: 500 mg Valsartan (Diovan -) 80 mg PO DAILY [facility] Last Admin: 01/11/17 09:13 Dose: 80 mg - Objective Vital Signs: Vital Signs Temperature 98.0 F 01/11/17 10:00 Pulse Rate 78 01/11/17 10:00 Respiratory Rate 20 01/11/17 10:00 Blood Pressure 148/82 01/11/17 10:00 O2 Sat by Pulse Oximetry (%) 97 01/11/17 10:00 Neck: Yes: Supple Cardiovascular: Yes: Regular Rate and Rhythm, S1, S2 Respiratory: Yes: CTA Bilaterally Gastrointestinal: Yes: Normal Bowel Sounds, Soft, Other (colostomy). No: Tenderness Edema: No Additional Findings/Remarks: - Problems (1) PAF (paroxysmal atrial fibrillation) Code(s): I48.0 - PAROXYSMAL ATRIAL FIBRILLATION (2) PSVT (paroxysmal supraventricular tachycardia) Code(s): I47.1 - SUPRAVENTRICULAR TACHYCARDIA (3) Perforated sigmoid colon Code(s): K63.1 - PERFORATION OF INTESTINE (NONTRAUMATIC) (4) Pneumoperitoneum Code(s): K66.8 - OTHER SPECIFIED DISORDERS OF PERITONEUM (5) Sepsis Code(s): A41.9 - SEPSIS, UNSPECIFIED ORGANISM Qualifiers: Sepsis type: sepsis due to unspecified organism Qualified Code(s): A41.9 - Sepsis, unspecified organism (6) History of open sigmoidectomy Code(s): Z98.89 - OTHER SPECIFIED POSTPROCEDURAL STATES * DO NOT USE * Labs: CBC, BMP 01/11/17 06:00 01/11/17 06:00 INR, PTT INR 1.24 (0.82-1.09) H 01/09/17 18:00 Assessment/Plan 1. Syncope - orthostatic hypotension - suggestive of vasovagal/neurocardiogenic , possible autonomic dysfunction and labile hypertension referable to XRT to right carotid sinus body 2. PAF currently in sinus rhythm with [id number] score of 3 on A/C with NOAC 3. PSVT currently in sinus rhythm 4. History of diverticular perforation with purulent peritonitis post exploratory laparotomy with sigmoid resection, end colostomy and abdominal washout 5. Non obstructive CAD, angina pectoris 6. HTN 7. History of multiple myeloma 8. Head and neck CA with vertebral spine involvement post resection post radiation therapy and chemotherapy 9. Anemia PLAN: 1. Follow orthostatic vital signs 2. Continue Betapace 80 mg bid 3. Continue Eliquis 5 mg bid 4. Continue Diovan 80 mg qd as tolerated 5. Consider upright tilt table testing as outpatient Yury Hassan MD
--- NOTE | 2017-01-11 10:53 | PN ---
Progress Note, Physician Chief Complaint: No complaints History of Present Illness: 76 yrs old man H/o HTn, PAf, multiple myeloma admitted with witnessed TLOC - Current Medication List Current Medications: Active Medications Apixaban (Eliquis -) 5 mg PO BID [facility] Last Admin: 01/11/17 09:13 Dose: 5 mg Baclofen (Lioresal -) 10 mg PO Q8H PRN Last Admin: 01/11/17 09:14 Dose: 10 mg Levothyroxine Sodium (Synthroid -) 50 mcg PO DAILY@0700 [facility] Last Admin: 01/11/17 06:04 Dose: 50 mcg Revlimid 10mg 1 each PO DAILY [facility] Pantoprazole Sodium (Protonix -) 40 mg PO DAILY [facility] Last Admin: 01/11/17 09:13 Dose: 40 mg Paroxetine HCl 20 mg/ (Paroxetine HCl 10 mg) 30 mg PO DAILY [facility] Last Admin: 01/11/17 09:14 Dose: 30 mg Pregabalin (Lyrica -) 50 mg PO BID [facility] Last Admin: 01/11/17 09:13 Dose: 50 mg Sotalol HCl (Betapace -) 80 mg PO BID [facility] Last Admin: 01/11/17 09:13 Dose: 80 mg Valacyclovir HCl (Valtrex -) 500 mg PO DAILY [facility] Last Admin: 01/11/17 09:13 Dose: 500 mg Valsartan (Diovan -) 80 mg PO DAILY [facility] Last Admin: 01/11/17 09:13 Dose: 80 mg - Objective Vital Signs: Vital Signs Temperature 98.0 F 01/11/17 10:00 Pulse Rate 78 01/11/17 10:00 Respiratory Rate 20 01/11/17 10:00 Blood Pressure 148/82 01/11/17 10:00 O2 Sat by Pulse Oximetry (%) 97 01/11/17 10:00 Elderly man not in distress Hemodynamically stable, no c/o chest pain or SOB HEENT: Mm moist, no anemia, PERRLA EOMI Rt Eye blindness NECK; No JVD No Bruit CHEST: Mild Tenderness CTA b/L CVS: S1S2 R no nm/g/r ABD: No distention, non tender Bs + EXT: No destiny afeet, no calf tenderness Pulses +2 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[employer] 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: 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.Imaging Chest X-ray: Image Reviewed (No acute changes) EKG: Image Reviewed (Normal sinus rhythma) Problem List - Problems (1) Syncope Assessment/Plan: Most likely Neuro Cardiogenic or orthostatic, normal sinus Rhythm, evaluated by cardiology recommended out patient Tilt table/ event monitor Code(s): R55 - SYNCOPE AND COLLAPSE (2) CAD (coronary artery disease) Assessment/Plan: Non obstructicve CAd no active issue cont home meds Code(s): I25.10 - ATHSCL HEART DISEASE OF [place] CORONARY ARTERY W/O ANG PCTRS Qualifiers: Qualified Code(s): I25.10 - Atherosclerotic heart disease of [place] coronary artery without angina pectoris (3) Multiple myeloma Assessment/Plan: Under Treatment with Oncologist Suppressive acyclovir and Chemotherapy as oncologist,multiple skeletal mets / ribs fracture evaluated by oncology consult. Code(s): C90.00 - MULTIPLE MYELOMA NOT HAVING ACHIEVED REMISSION Qualifiers: Qualified Code(s): C90.00 - Multiple myeloma not having achieved remission (4) PAF (paroxysmal atrial fibrillation) Assessment/Plan: At present in NSR on Apaxiban cont all home meds Stotalol dose aki adjusted by Cardiology Code(s): I48.0 - PAROXYSMAL ATRIAL FIBRILLATION (5) HTN (hypertension) Assessment/Plan: Well controlled cont home meds Code(s): I10 - ESSENTIAL (PRIMARY) HYPERTENSION Assessment/Plan Active Medications Generic Name Dose Route Start Last Admin Trade Name Freq PRN Reason Stop Dose Admin Apixaban 5 mg 01/10/17 10:00 01/10/17 10:03 Eliquis - PO 5 mg BID BERE Administration Baclofen 10 mg 01/10/17 02:25 Lioresal - PO Q8H PRN Levothyroxine Sodium 50 mcg 01/10/17 07:00 01/10/17 06:14 Synthroid - PO 50 mcg DAILY@0700 BERE Administration Revlimid 10mg 1 each 01/10/17 10:00 PO DAILY BERE Pantoprazole Sodium 40 mg 01/10/17 10:00 01/10/17 10:03 Protonix - PO 40 mg DAILY BERE Administration Paroxetine HCl 20 mg/ 30 mg 01/10/17 10:00 01/10/17 10:03 Paroxetine HCl 10 mg PO 30 mg DAILY BERE Administration Pregabalin 50 mg 01/10/17 10:00 01/10/17 10:03 Lyrica - PO 50 mg BID BERE Administration Sotalol HCl 80 mg 01/10/17 10:00 01/10/17 10:02 Betapace - PO 80 mg DAILY BERE Administration Valacyclovir HCl 500 mg 01/10/17 10:00 01/10/17 10:03 Valtrex - PO 500 mg DAILY BERE Administration Valsartan 80 mg 01/10/17 10:00 01/10/17 10:03 Diovan - PO 80 mg DAILY BERE Administration
--- NOTE | 2017-01-11 12:55 | PN ---
Progress Note (short form) - Note Progress Note: Patient seen and examined Careful with ambulation in view of orthostatic hypotension Back pain persists relieved by oxycodone Last Vital Signs Temp Pulse Resp BP Pulse Ox 98.0 F 78 20 148/82 97 01/11/17 10:00 01/11/17 10:00 01/11/17 10:00 01/11/17 10:00 01/11/17 10:00 HEENT:right eye scarred with decreased vision Oropharynx: No thrush, No mucositis Neck: s/p RT no adenopathy Nodes: Without adenopathy Cor: RSR, No murmurs, No gallops Lungs: scattered rhonchi Abd: Soft, Normal bowel sounds, No organomegaly Ext:No significant edema Skin: No rashes, Integument intact CBC, BMP 01/11/17 06:00 01/11/17 06:00 Current Medications Generic Name Dose Route Start Last Admin Trade Name Freq PRN Reason Stop Dose Admin Apixaban 5 mg 01/10/17 10:00 01/11/17 09:13 Eliquis - PO 5 mg BID BERE Administration Baclofen 10 mg 01/10/17 02:25 01/11/17 09:14 Lioresal - PO 10 mg Q8H PRN Administration Levothyroxine Sodium 50 mcg 01/10/17 07:00 01/11/17 06:04 Synthroid - PO 50 mcg DAILY@0700 BERE Administration Revlimid 10mg 1 each 01/10/17 10:00 PO DAILY BERE Pantoprazole Sodium 40 mg 01/10/17 10:00 01/11/17 09:13 Protonix - PO 40 mg DAILY BERE Administration Paroxetine HCl 20 mg/ 30 mg 01/10/17 10:00 01/11/17 09:14 Paroxetine HCl 10 mg PO 30 mg DAILY BERE Administration Pregabalin 50 mg 01/10/17 10:00 01/11/17 09:13 Lyrica - PO 50 mg BID BERE Administration Sotalol HCl 80 mg 01/10/17 22:00 01/11/17 09:13 Betapace - PO 80 mg BID BERE Administration Valacyclovir HCl 500 mg 01/10/17 10:00 01/11/17 09:13 Valtrex - PO 500 mg DAILY BERE Administration Valsartan 80 mg 01/10/17 10:00 01/11/17 09:13 Diovan - PO 80 mg DAILY BERE Administration Impression: Myeloma-- not in remission Orthostatic hypotension Syncope Skeletal met Spoke with patient and son about out patient follow up.
== END 2017-01-11 13:14 | disposition home or self-care (01) ==
LOC: JER 15:32 → JERBED 20:09 → J4S 01-10 00:10
PROVIDERS: ADMIT Internal Medicine; ATTEND Internal Medicine
PROC: 3E0337Z Introduction of Electrolytic and Water Balance Substance into Peripheral Vein, Percutaneous Approach (ICD-10-PCS; principal; 2017-01-09)
DX: R55 Syncope and collapse (principal); I48.0 Paroxysmal atrial fibrillation; I10 Essential (primary) hypertension; C90.00 Multiple myeloma not having achieved remission; C08.9 Malignant neoplasm of major salivary gland, unspecified; D64.9 Anemia, unspecified; E78.5 Hyperlipidemia, unspecified; Z79.01 Long term (current) use of anticoagulants; H54.41 Blindness, right eye, normal vision left eye; I47.1 Supraventricular tachycardia; K63.1 Perforation of intestine (nontraumatic); K66.8 Other specified disorders of peritoneum; Z93.3 Colostomy status; Z98.890 Other specified postprocedural states
CPT/HCPCS: 36415; 71010-TC; 80053; 81003; 81015; 82550; 83735; 84484; 85025; 85027; 85610; 93005; 93010; 99284-25; G0378; J0475

== ENCOUNTER 2017-01-15 07:14 | Day surgery (SDC) | payer OTHER, BC ==
[2017-01-15 09:54] LABS: BASOPHIL 0.5 % (0-2.0); EOSINOPHIL 2.7 % (0-4.5); MCH 34.1 pg (25.7-33.7); MCHC 33.7 g/dl (32.0-35.9); MEAN CELL VOLUME 101.3 fl (80-96); MEAN PLT VOLUME 8.3 fl (7.5-11.1); NEUTROPHILS 71.6 % (42.8-82.8); PLATELET COUNT 188 K/MM3 (134-434); RDW 16.6 % (11.9-15.9); WHITE BLOOD COUNT 6.1 K/mm3 (4.0-10.0)
[2017-01-15 12:34] LABS: C-REACTIVE PROTEIN < 0.3 MG/DL (0.00-0.3)
[2017-01-15 12:35] LABS: LDH 154 U/L (87-241)
[2017-01-15 12:36] LABS: ALBUMIN 3.3 g/dl (3.4-5.0); BILIRUBIN,DIRECT 0.1 mg/dL (0.0-0.2); BILIRUBIN,TOTAL 0.4 mg/dL (0.2-1.0); TOT PROT 8.3 g/dl (6.4-8.2)
[2017-01-15] MEDS: SODIUM CHLORIDE 250 ML IV ONE ×2 (13:55→15:39)
[2017-01-15] MEDS: ZOLEDRONIC ACID 4 MG in SODIUM CHLORIDE 100 ML IVPB ONE (14:50)
[2017-01-15] MEDS: BORTEZOMIB (VELCADE) 2.5 MG/ML SUB-Q INJECTION SQ ONE (15:41)
[2017-01-15 16:15] VITALS: TEMP 98.1
[2017-01-15 16:32] VITALS: BP 149/79; PULSE 63
[2017-01-16 08:08] LABS: IGG IMMUNOGLOBULIN 3337 mg/dL (700-1600); IGM IMMUNOGLOBULIN 22 mg/dL (15-143)
[2017-01-18 10:12] LABS: FREE LAMB CHN UR 10.8 mg/L (0.24-6.66); KAPPA LAMBDA RATIO URIN 334.26 (2.04-10.37)
== END 2017-01-15 18:19 | disposition home or self-care (01) ==
LOC: JONCCHEMO 07:14 → J7W 10:20 → JONCCHEMO 18:19
PROVIDERS: ATTEND Internal Medicine Hematology & Oncology
PROC: 3E01305 Introduction of Other Antineoplastic into Subcutaneous Tissue, Percutaneous Approach (ICD-10-PCS; principal; 2017-01-15)
PROC: 3E033GC Introduction of Other Therapeutic Substance into Peripheral Vein, Percutaneous Approach (ICD-10-PCS; 2017-01-15)
DX: Z51.11 Encounter for antineoplastic chemotherapy (principal); C90.00 Multiple myeloma not having achieved remission
CPT/HCPCS: 96365; 96401; J3489; J9041; 36415; 80076; 82232; 82784; 83615; 83883; 85025; 85651; 86140

== ENCOUNTER 2017-01-22 07:14 | Day surgery (SDC) | payer OTHER, BC ==
[2017-01-22] MEDS ORDERED: BORTEZOMIB (VELCADE) 2.5 MG/ML SUB-Q INJECTION SQ ONE (08:00)
[2017-01-22 10:40] VITALS: TEMP 97.8
[2017-01-22 11:18] LABS: EOSINOPHIL 2.5 % (0-4.5); MCH 33.8 pg (25.7-33.7); MCHC 33.3 g/dl (32.0-35.9); MEAN CELL VOLUME 101.6 fl (80-96); MEAN PLT VOLUME 9.1 fl (7.5-11.1); NEUTROPHILS 71.1 % (42.8-82.8); PLATELET COUNT 179 K/MM3 (134-434); RDW 16.6 % (11.9-15.9); WHITE BLOOD COUNT 6.4 K/mm3 (4.0-10.0)
[2017-01-22 17:11] VITALS: BP 91/64; PULSE 65
== END 2017-01-22 18:42 | disposition home or self-care (01) ==
LOC: JONCCHEMO 07:14 → J7W 12:05 → JONCCHEMO 18:42
PROVIDERS: ATTEND Internal Medicine Hematology & Oncology
DX: Z51.11 Encounter for antineoplastic chemotherapy (principal); C90.00 Multiple myeloma not having achieved remission
CPT/HCPCS: 36415; 85025; 96401; J9041

== ENCOUNTER 2017-01-29 07:30 | Day surgery (SDC) | payer OTHER, BC ==
[2017-01-29] MEDS ORDERED: BORTEZOMIB (VELCADE) 2.5 MG/ML SUB-Q INJECTION SQ ONE (08:00)
[2017-01-29 10:48] LABS: BASOPHIL 1.4 % (0-2.0); EOSINOPHIL 2.6 % (0-4.5); MCH 33.9 pg (25.7-33.7); MCHC 33.1 g/dl (32.0-35.9); MEAN CELL VOLUME 102.3 fl (80-96); MEAN PLT VOLUME 9.8 fl (7.5-11.1); NEUTROPHILS 67.1 % (42.8-82.8); PLATELET COUNT 152 K/MM3 (134-434); RDW 16.9 % (11.9-15.9); WHITE BLOOD COUNT 5.4 K/mm3 (4.0-10.0)
[2017-01-29 11:38] VITALS: BP 100/60; PULSE 62; TEMP 98.3
== END 2017-01-29 11:58 | disposition home or self-care (01) ==
LOC: JONCCHEMO 07:30 → J7W 11:21 → JONCCHEMO 11:58
PROVIDERS: ATTEND Internal Medicine Hematology & Oncology
DX: Z51.11 Encounter for antineoplastic chemotherapy (principal); C90.00 Multiple myeloma not having achieved remission
CPT/HCPCS: 96401; J9041; 36415; 85025

== ENCOUNTER 2017-02-05 07:28 | Day surgery (SDC) | payer OTHER, BC ==
[2017-02-05] MEDS ORDERED: BORTEZOMIB (VELCADE) 2.5 MG/ML SUB-Q INJECTION SQ ONE (10:00)
[2017-02-05 11:40] LABS: ALBUMIN 3.3 g/dl (3.4-5.0); BILIRUBIN,TOTAL 0.6 mg/dL (0.2-1.0); CALCIUM 9.5 mg/dL (8.5-10.1); CREATININE 1.2 mg/dL (0.7-1.3); MAGNESIUM 2.3 mg/dL (1.8-2.4); TOT PROT 8.8 g/dl (6.4-8.2)
[2017-02-05 11:42] VITALS: TEMP 97.9
[2017-02-05] MEDS ORDERED: D5-1/2NS+20 MEQ KCL - 1,000 ML IV SCH (11:45)
[2017-02-05 13:01] LABS: WHITE BLOOD COUNT 6.1 K/mm3 (4.0-10.0)
[2017-02-05 13:02] LABS: BASOPHIL 0.2 % (0-2.0); EOSINOPHIL 1.5 % (0-4.5); MCHC 32.8 g/dl (32.0-35.9); MEAN CELL VOLUME 103.5 fl (80-96); MEAN PLT VOLUME 9.6 fl (7.5-11.1); PLATELET COUNT 160 K/MM3 (134-434); RDW 16.2 % (11.9-15.9)
[2017-02-05 16:47] VITALS: BP 142/89; PULSE 54
== END 2017-02-05 16:57 | disposition home or self-care (01) ==
LOC: JONCCHEMO 07:28 → J7W 11:25 → JONCCHEMO 16:57
PROVIDERS: ATTEND Internal Medicine Hematology & Oncology
PROC: 3E01305 Introduction of Other Antineoplastic into Subcutaneous Tissue, Percutaneous Approach (ICD-10-PCS; principal; 2017-02-05)
PROC: 3E0337Z Introduction of Electrolytic and Water Balance Substance into Peripheral Vein, Percutaneous Approach (ICD-10-PCS; 2017-02-05)
DX: Z51.11 Encounter for antineoplastic chemotherapy (principal); C90.00 Multiple myeloma not having achieved remission
CPT/HCPCS: 96361; 96402; J9041; 36415; 80053; 83735; 85025; 96360

== ENCOUNTER 2017-02-12 07:27 | Day surgery (SDC) | payer OTHER, BC ==
[2017-02-12 09:50] LABS: BASOPHIL 0.7 % (0-2.0); EOSINOPHIL 2.4 % (0-4.5); MCH 34.9 pg (25.7-33.7); MCHC 33.9 g/dl (32.0-35.9); MEAN CELL VOLUME 103.1 fl (80-96); MEAN PLT VOLUME 9.5 fl (7.5-11.1); NEUTROPHILS 70.7 % (42.8-82.8); PLATELET COUNT 140 K/MM3 (134-434); RDW 15.9 % (11.9-15.9); WHITE BLOOD COUNT 5.6 K/mm3 (4.0-10.0)
[2017-02-12] MEDS ORDERED: SODIUM CHLORIDE 250 ML IV ONE ×2 (10:00→11:15)
[2017-02-12] MEDS ORDERED: BORTEZOMIB (VELCADE) 2.5 MG/ML SUB-Q INJECTION SQ ONE (10:00)
[2017-02-12 10:24] LABS: ALBUMIN 3.3 g/dl (3.4-5.0); ANION GAP 10 (8-16); BILIRUBIN,TOTAL 0.5 mg/dL (0.2-1.0); CALCIUM 9.4 mg/dL (8.5-10.1); CO2 23 mmol/L (21-32); COCKROFT - GAULT 76; GLUCOSE,RANDOM 98 mg/dL (74-106); MAGNESIUM 2.2 mg/dL (1.8-2.4); SGOT/AST 27 U/L (15-37); SGPT/ALT 22 U/L (12-78); TOT PROT 8.9 g/dl (6.4-8.2)
[2017-02-12 10:25] LABS: ALK PHOS 91 U/L (45-117)
[2017-02-12] MEDS ORDERED: ZOLEDRONIC ACID 4 MG in SODIUM CHLORIDE 100 ML IVPB ONE (10:30)
[2017-02-12 15:26] VITALS: BP 144/83; PULSE 55; TEMP 97.8
== END 2017-02-12 15:35 | disposition home or self-care (01) ==
LOC: JONCCHEMO 07:27 → J7W 10:46 → JONCCHEMO 15:35
PROVIDERS: ATTEND Internal Medicine Hematology & Oncology
PROC: 3E033GC Introduction of Other Therapeutic Substance into Peripheral Vein, Percutaneous Approach (ICD-10-PCS; principal; 2017-02-12)
DX: C90.00 Multiple myeloma not having achieved remission (principal); M81.0 Age-related osteoporosis without current pathological fracture; I10 Essential (primary) hypertension
CPT/HCPCS: 96365; J3489; 36415; 80053; 83735; 85025; 96360; J9041

== ENCOUNTER 2017-02-19 07:35 | Day surgery (SDC) | payer OTHER, BC ==
[2017-02-19] MEDS ORDERED: BORTEZOMIB (VELCADE) 2.5 MG/ML SUB-Q INJECTION SQ ONE (10:00)
[2017-02-19 12:05] LABS: BASOPHIL 0.2 % (0-2.0); EOSINOPHIL 2.4 % (0-4.5); MCH 34.4 pg (25.7-33.7); MCHC 33.2 g/dl (32.0-35.9); MEAN CELL VOLUME 103.6 fl (80-96); MEAN PLT VOLUME 9.1 fl (7.5-11.1); NEUTROPHILS 68.7 % (42.8-82.8); PLATELET COUNT 124 K/MM3 (134-434); RDW 15.8 % (11.9-15.9); WHITE BLOOD COUNT 5.7 K/mm3 (4.0-10.0)
[2017-02-19 12:57] LABS: ALBUMIN 3.4 g/dl (3.4-5.0); ANION GAP 8 (8-16); BILIRUBIN,DIRECT 0.1 mg/dL (0.0-0.2); CALCIUM 9.4 mg/dL (8.5-10.1); CO2 28 mmol/L (21-32); COCKROFT - GAULT 84; CREATININE 0.9 mg/dL (0.7-1.3); GLUCOSE,RANDOM 93 mg/dL (74-106); LDH 163 U/L (87-241); MAGNESIUM 2.3 mg/dL (1.8-2.4); SGOT/AST 20 U/L (15-37); SGPT/ALT 18 U/L (12-78)
[2017-02-19 12:58] LABS: ALK PHOS 87 U/L (45-117); BILIRUBIN,TOTAL 0.6 mg/dL (0.2-1.0)
[2017-02-19 16:32] VITALS: BP 141/80; TEMP 97.6
[2017-02-19 17:29] VITALS: PULSE 57
[2017-02-21 00:07] LABS: A/G RATIO 0.7 (0.7-1.7); ALBUMIN 3.5 g/dL (2.9-4.4); ALPHA-1-GLOBULIN 0.3 g/dL (0.0-0.4); GLOBULIN, TOTAL 5.2 g/dL (2.2-3.9); M-SPIKE 2.7 g/dL (Not Observed); TOTAL PROTEIN 8.7 g/dL (6.0-8.5)
[2017-02-21 08:07] LABS: FREE LAMB CHN UR 14.3 mg/L (0.24-6.66); KAPPA LAMBDA RATIO URIN 937.06 (2.04-10.37)
== END 2017-02-19 15:42 | disposition home or self-care (01) ==
LOC: JONCCHEMO 07:35 → J7W 12:09 → JONCCHEMO 15:42
PROVIDERS: ATTEND Internal Medicine Hematology & Oncology
DX: Z51.11 Encounter for antineoplastic chemotherapy (principal); C90.00 Multiple myeloma not having achieved remission; M81.0 Age-related osteoporosis without current pathological fracture
CPT/HCPCS: 36415; 80053; 80076; 82784; 82785; 83615; 83735; 83883; 84155; 84165; 85025; 86334; 96401; J9041

== ENCOUNTER 2017-02-26 07:27 | Day surgery (SDC) | payer OTHER, BC ==
[2017-02-26] MEDS ORDERED: BORTEZOMIB (VELCADE) 2.5 MG/ML SUB-Q INJECTION SQ ONE (10:00)
[2017-02-26 10:25] LABS: BASOPHIL 0.4 % (0-2.0); EOSINOPHIL 2.5 % (0-4.5); MCH 34.4 pg (25.7-33.7); MCHC 33.5 g/dl (32.0-35.9); MEAN CELL VOLUME 102.6 fl (80-96); MEAN PLT VOLUME 9.4 fl (7.5-11.1); NEUTROPHILS 67.4 % (42.8-82.8); PLATELET COUNT 127 K/MM3 (134-434); RDW 15.9 % (11.9-15.9); WHITE BLOOD COUNT 4.8 K/mm3 (4.0-10.0)
[2017-02-26 11:10] LABS: ALBUMIN 3.3 g/dl (3.4-5.0); ANION GAP 10 (8-16); CALCIUM 9.6 mg/dL (8.5-10.1); CO2 23 mmol/L (21-32); COCKROFT - GAULT 95; CREATININE 0.8 mg/dL (0.7-1.3); GLUCOSE,RANDOM 112 mg/dL (74-106); MAGNESIUM 2.1 mg/dL (1.8-2.4); SGOT/AST 26 U/L (15-37); SGPT/ALT 19 U/L (12-78)
[2017-02-26 11:13] LABS: ALK PHOS 72 U/L (45-117); BILIRUBIN,TOTAL 0.7 mg/dL (0.2-1.0); TOT PROT 8.9 g/dl (6.4-8.2)
[2017-02-26 11:29] VITALS: BP 127/78; PULSE 60; TEMP 98
== END 2017-02-26 12:58 | disposition home or self-care (01) ==
LOC: JONCCHEMO 07:27 → J7W 10:54 → JONCCHEMO 12:58
PROVIDERS: ATTEND Internal Medicine Hematology & Oncology
DX: Z51.11 Encounter for antineoplastic chemotherapy (principal); C90.00 Multiple myeloma not having achieved remission
CPT/HCPCS: 96401; J9041; 36415; 80053; 83735; 85025

== ENCOUNTER 2017-03-05 07:20 | Day surgery (SDC) | payer OTHER, BC ==
[2017-03-05] MEDS ORDERED: BORTEZOMIB (VELCADE) 2.5 MG/ML SUB-Q INJECTION SQ ONE (10:00)
[2017-03-05 11:12] LABS: BASOPHIL 0.1 % (0-2.0); MCH 34.2 pg (25.7-33.7); MEAN CELL VOLUME 103.5 fl (80-96); MEAN PLT VOLUME 9.9 fl (7.5-11.1); NEUTROPHILS 92.3 % (42.8-82.8); PLATELET COUNT 127 K/MM3 (134-434); RDW 15.2 % (11.9-15.9); WHITE BLOOD COUNT 8.6 K/mm3 (4.0-10.0)
[2017-03-05 11:55] LABS: ALBUMIN 3.3 g/dl (3.4-5.0); ANION GAP 9 (8-16); BILIRUBIN,DIRECT 0.1 mg/dL (0.0-0.2); CALCIUM 9.6 mg/dL (8.5-10.1); CO2 26 mmol/L (21-32); CREATININE 0.9 mg/dL (0.7-1.3); GLUCOSE,RANDOM 138 mg/dL (74-106); SGOT/AST 15 U/L (15-37); SGPT/ALT 18 U/L (12-78)
[2017-03-05 11:57] LABS: ALK PHOS 67 U/L (45-117); BILIRUBIN,TOTAL 0.6 mg/dL (0.2-1.0); TOT PROT 8.8 g/dl (6.4-8.2)
[2017-03-05 12:42] VITALS: BP 127/75; PULSE 60; TEMP 98.2
== END 2017-03-05 13:35 | disposition home or self-care (01) ==
LOC: JONCCHEMO 07:20 → J7W 12:05 → JONCCHEMO 13:35
PROVIDERS: ATTEND Internal Medicine Hematology & Oncology
DX: Z51.11 Encounter for antineoplastic chemotherapy (principal); C90.00 Multiple myeloma not having achieved remission
CPT/HCPCS: 96401; J9041; 36415; 80053; 80076; 83735; 85025

== ENCOUNTER 2017-03-12 07:32 | Day surgery (SDC) | payer OTHER, BC ==
[2017-03-12] MEDS ORDERED: BORTEZOMIB (VELCADE) 2.5 MG/ML SUB-Q INJECTION SQ ONE (10:00)
[2017-03-12] MEDS ORDERED: ZOLEDRONIC ACID 4 MG in SODIUM CHLORIDE 100 ML IVPB ONE (10:00)
[2017-03-12] MEDS ORDERED: SODIUM CHLORIDE 250 ML IV ONE ×2 (10:00→11:15)
[2017-03-12 10:50] LABS: BASOPHIL 0.1 % (0-2.0); EOSINOPHIL 1.4 % (0-4.5); MCH 34.2 pg (25.7-33.7); MEAN CELL VOLUME 103.7 fl (80-96); MEAN PLT VOLUME 9.4 fl (7.5-11.1); NEUTROPHILS 83.9 % (42.8-82.8); PLATELET COUNT 112 K/MM3 (134-434); RDW 15.6 % (11.9-15.9); WHITE BLOOD COUNT 7.7 K/mm3 (4.0-10.0)
[2017-03-12 11:18] LABS: ALK PHOS 64 U/L (45-117); ANION GAP 8 (8-16); BILIRUBIN,DIRECT 0.1 mg/dL (0.0-0.2); BILIRUBIN,TOTAL 0.6 mg/dL (0.2-1.0); CALCIUM 8.7 mg/dL (8.5-10.1); CO2 26 mmol/L (21-32); CREATININE 0.8 mg/dL (0.7-1.3); GLUCOSE,RANDOM 113 mg/dL (74-106); MAGNESIUM 2.1 mg/dL (1.8-2.4); SGOT/AST 24 U/L (15-37); SGPT/ALT 28 U/L (12-78)
[2017-03-12 14:25] VITALS: BP 127/72; PULSE 51; TEMP 97.9
== END 2017-03-12 14:34 | disposition home or self-care (01) ==
LOC: JONCCHEMO 07:32 → J7W 11:38 → JONCCHEMO 14:34
PROVIDERS: ATTEND Internal Medicine Hematology & Oncology
PROC: 3E01305 Introduction of Other Antineoplastic into Subcutaneous Tissue, Percutaneous Approach (ICD-10-PCS; principal; 2017-03-12)
PROC: 3E033GC Introduction of Other Therapeutic Substance into Peripheral Vein, Percutaneous Approach (ICD-10-PCS; 2017-03-12)
PROC: 3E033GC Introduction of Other Therapeutic Substance into Peripheral Vein, Percutaneous Approach (ICD-10-PCS; 2017-03-12)
DX: Z51.11 Encounter for antineoplastic chemotherapy (principal); C90.00 Multiple myeloma not having achieved remission
CPT/HCPCS: 36415; 80053; 80076; 83735; 85025; 96361; 96365; 96401; 96417; J3489; J9041

== ENCOUNTER 2017-03-19 07:47 | Day surgery (SDC) | payer OTHER, BC ==
[2017-03-19] MEDS ORDERED: BORTEZOMIB (VELCADE) 2.5 MG/ML SUB-Q INJECTION SQ ONE (10:00)
[2017-03-19 11:17] VITALS: TEMP 98.2
[2017-03-19 11:43] LABS: BASOPHIL 0.7 % (0-2.0); EOSINOPHIL 2.4 % (0-4.5); MCH 34.1 pg (25.7-33.7); MCHC 32.7 g/dl (32.0-35.9); MEAN CELL VOLUME 104.2 fl (80-96); MEAN PLT VOLUME 10.8 fl (7.5-11.1); RDW 15.7 % (11.9-15.9); WHITE BLOOD COUNT 7.6 K/mm3 (4.0-10.0)
[2017-03-19 11:53] LABS: ANION GAP 6 (8-16); BILIRUBIN,DIRECT 0.1 mg/dL (0.0-0.2); CALCIUM 8.9 mg/dL (8.5-10.1); CO2 27 mmol/L (21-32); CREATININE 0.7 mg/dL (0.7-1.3); GLUCOSE,RANDOM 110 mg/dL (74-106); MAGNESIUM 1.9 mg/dL (1.8-2.4); SGOT/AST 30 U/L (15-37); SGPT/ALT 34 U/L (12-78)
[2017-03-19 11:55] LABS: ALK PHOS 69 U/L (45-117); BILIRUBIN,TOTAL 0.5 mg/dL (0.2-1.0); TOT PROT 7.8 g/dl (6.4-8.2)
[2017-03-19 12:46] LABS: PLATELET COUNT 90 K/MM3 (134-434); PLATELET ESTIMATE DECREASED (NORMAL)
[2017-03-19 13:00] VITALS: BP 121/72; PULSE 56
== END 2017-03-19 14:42 | disposition home or self-care (01) ==
LOC: JONCCHEMO 07:47 → J7W 12:45 → JONCCHEMO 14:42
PROVIDERS: ATTEND Internal Medicine Hematology & Oncology
DX: Z51.11 Encounter for antineoplastic chemotherapy (principal); C90.00 Multiple myeloma not having achieved remission
CPT/HCPCS: 96401; J9041; 36415; 80053; 80076; 83735; 85025

== ENCOUNTER 2017-03-26 07:44 | Day surgery (SDC) | payer OTHER, BC ==
[2017-03-26] MEDS ORDERED: BORTEZOMIB (VELCADE) 2.5 MG/ML SUB-Q INJECTION SQ ONE (08:00)
[2017-03-26 11:18] LABS: BASOPHIL 0.7 % (0-2.0); EOSINOPHIL 0.8 % (0-4.5); MCH 34.4 pg (25.7-33.7); MCHC 33.6 g/dl (32.0-35.9); MEAN CELL VOLUME 102.2 fl (80-96); MEAN PLT VOLUME 9.3 fl (7.5-11.1); NEUTROPHILS 89.8 % (42.8-82.8); PLATELET COUNT 105 K/MM3 (134-434); RDW 15.3 % (11.9-15.9); WHITE BLOOD COUNT 6.9 K/mm3 (4.0-10.0)
[2017-03-26 11:44] LABS: ANION GAP 8 (8-16); BILIRUBIN,DIRECT 0.1 mg/dL (0.0-0.2); BILIRUBIN,TOTAL 0.6 mg/dL (0.2-1.0); CALCIUM 8.6 mg/dL (8.5-10.1); CO2 25 mmol/L (21-32); CREATININE 0.8 mg/dL (0.7-1.3); GLUCOSE,RANDOM 126 mg/dL (74-106); SGOT/AST 24 U/L (15-37); SGPT/ALT 29 U/L (12-78); TOT PROT 7.7 g/dl (6.4-8.2)
[2017-03-26 11:45] LABS: ALK PHOS 61 U/L (45-117)
[2017-03-26 12:28] VITALS: BP 113/69; PULSE 58; TEMP 98.1
== END 2017-03-26 13:14 | disposition home or self-care (01) ==
LOC: JONCCHEMO 07:44 → J7W 12:22 → JONCCHEMO 13:14
PROVIDERS: ATTEND Internal Medicine Hematology & Oncology
DX: Z51.11 Encounter for antineoplastic chemotherapy (principal); C90.00 Multiple myeloma not having achieved remission
CPT/HCPCS: 96401; J9041; 36415; 80053; 80076; 83735; 85025

== ENCOUNTER 2017-04-02 07:41 | Day surgery (SDC) | payer OTHER, BC ==
[2017-04-02] MEDS ORDERED: BORTEZOMIB (VELCADE) 2.5 MG/ML SUB-Q INJECTION SQ ONE (08:00)
[2017-04-02 11:10] VITALS: BP 120/64; PULSE 67; TEMP 98.7
[2017-04-02 11:16] LABS: BASOPHIL 0.2 % (0-2.0); EOSINOPHIL 0.8 % (0-4.5); MCH 33.9 pg (25.7-33.7); MCHC 32.9 g/dl (32.0-35.9); MEAN CELL VOLUME 103.1 fl (80-96); MEAN PLT VOLUME 9.1 fl (7.5-11.1); NEUTROPHILS 88.2 % (42.8-82.8); PLATELET COUNT 129 K/MM3 (134-434); RDW 16.1 % (11.9-15.9); WHITE BLOOD COUNT 8.5 K/mm3 (4.0-10.0)
[2017-04-02 11:44] LABS: ANION GAP 5 (8-16); BILIRUBIN,DIRECT 0.2 mg/dL (0.0-0.2); CALCIUM 8.9 mg/dL (8.5-10.1); CO2 29 mmol/L (21-32); CREATININE 0.7 mg/dL (0.7-1.3); GLUCOSE,RANDOM 121 mg/dL (74-106); MAGNESIUM 2.2 mg/dL (1.8-2.4); SGOT/AST 16 U/L (15-37); SGPT/ALT 22 U/L (12-78)
[2017-04-02 11:46] LABS: ALK PHOS 66 U/L (45-117); BILIRUBIN,TOTAL 0.8 mg/dL (0.2-1.0); TOT PROT 7.7 g/dl (6.4-8.2)
== END 2017-04-02 12:30 | disposition home or self-care (01) ==
LOC: JONCCHEMO 07:41 → J7W 12:06 → JONCCHEMO 12:30
PROVIDERS: ATTEND Internal Medicine Hematology & Oncology
DX: Z51.11 Encounter for antineoplastic chemotherapy (principal); C90.00 Multiple myeloma not having achieved remission
CPT/HCPCS: 96401; J9041; 36415; 80053; 80076; 83735; 85025

== ENCOUNTER 2017-04-09 07:23 | Day surgery (SDC) | payer OTHER, BC ==
[2017-04-09] MEDS ORDERED: BORTEZOMIB (VELCADE) 2.5 MG/ML SUB-Q INJECTION SQ ONE (08:00)
[2017-04-09 11:46] LABS: BASOPHIL 0.3 % (0-2.0); MCH 34.2 pg (25.7-33.7); MCHC 33.5 g/dl (32.0-35.9); MEAN CELL VOLUME 102.2 fl (80-96); MEAN PLT VOLUME 9.4 fl (7.5-11.1); NEUTROPHILS 92.4 % (42.8-82.8); PLATELET COUNT 145 K/MM3 (134-434); RDW 15.4 % (11.9-15.9); WHITE BLOOD COUNT 8.5 K/mm3 (4.0-10.0)
[2017-04-09 12:13] LABS: ANION GAP 9 (8-16); BILIRUBIN,DIRECT 0.2 mg/dL (0.0-0.2); CALCIUM 9.1 mg/dL (8.5-10.1); CO2 27 mmol/L (21-32); CREATININE 0.8 mg/dL (0.7-1.3); GLUCOSE,RANDOM 124 mg/dL (74-106); MAGNESIUM 2.2 mg/dL (1.8-2.4); SGOT/AST 18 U/L (15-37); SGPT/ALT 25 U/L (12-78)
[2017-04-09 12:15] LABS: ALK PHOS 63 U/L (45-117); BILIRUBIN,TOTAL 1.2 mg/dL (0.2-1.0); TOT PROT 7.7 g/dl (6.4-8.2)
[2017-04-09 13:06] VITALS: BP 120/70; PULSE 72; TEMP 98
== END 2017-04-09 14:00 | disposition home or self-care (01) ==
LOC: JONCCHEMO 07:23 → J7W 12:25 → JONCCHEMO 14:00
PROVIDERS: ATTEND Internal Medicine Hematology & Oncology
DX: Z51.11 Encounter for antineoplastic chemotherapy (principal); C90.00 Multiple myeloma not having achieved remission
CPT/HCPCS: 36415; 80053; 80076; 83735; 85025; 96401; J9041

== ENCOUNTER 2017-04-16 07:46 | Day surgery (SDC) | payer OTHER, BC ==
[2017-04-16] MEDS ORDERED: BORTEZOMIB (VELCADE) 2.5 MG/ML SUB-Q INJECTION SQ ONE (08:00)
[2017-04-16 10:26] LABS: BASOPHIL 0.2 % (0-2.0); EOSINOPHIL 3.8 % (0-4.5); MCH 34.1 pg (25.7-33.7); MCHC 33.7 g/dl (32.0-35.9); MEAN CELL VOLUME 101.3 fl (80-96); MEAN PLT VOLUME 9.2 fl (7.5-11.1); NEUTROPHILS 80.7 % (42.8-82.8); PLATELET COUNT 135 K/MM3 (134-434); RDW 14.9 % (11.9-15.9); WHITE BLOOD COUNT 6.6 K/mm3 (4.0-10.0)
[2017-04-16 10:45] LABS: ALK PHOS 82 U/L (45-117); ANION GAP 7 (8-16); BILIRUBIN,DIRECT 0.1 mg/dL (0.0-0.2); BILIRUBIN,TOTAL 0.5 mg/dL (0.2-1.0); CALCIUM 8.6 mg/dL (8.5-10.1); CO2 27 mmol/L (21-32); CREATININE 0.7 mg/dL (0.7-1.3); GLUCOSE,RANDOM 113 mg/dL (74-106); MAGNESIUM 2.1 mg/dL (1.8-2.4); SGOT/AST 17 U/L (15-37); SGPT/ALT 24 U/L (12-78); TOT PROT 7.8 g/dl (6.4-8.2)
[2017-04-16] MEDS ORDERED: SODIUM CHLORIDE 250 ML IV ONE ×2 (11:30→12:30)
[2017-04-16] MEDS ORDERED: ZOLEDRONIC ACID 4 MG in SODIUM CHLORIDE 100 ML IVPB ONE (12:00)
[2017-04-16 15:39] VITALS: BP 134/72; PULSE 61; TEMP 98
[2017-04-17 06:06] LABS: IGG IMMUNOGLOBULIN 2629 mg/dL (700-1600); IGM IMMUNOGLOBULIN 16 mg/dL (15-143)
== END 2017-04-16 16:00 | disposition home or self-care (01) ==
LOC: JONCCHEMO 07:46 → J7W 11:26 → JONCCHEMO 16:00
PROVIDERS: ATTEND Internal Medicine Hematology & Oncology
PROC: 3E03305 Introduction of Other Antineoplastic into Peripheral Vein, Percutaneous Approach (ICD-10-PCS; principal; 2017-04-16)
PROC: 3E033GC Introduction of Other Therapeutic Substance into Peripheral Vein, Percutaneous Approach (ICD-10-PCS; 2017-04-16)
DX: Z51.11 Encounter for antineoplastic chemotherapy (principal); C90.00 Multiple myeloma not having achieved remission
CPT/HCPCS: 36415; 80053; 80076; 82784; 83735; 83883; 85025; 96365; 96401; 96417; J3489; J9041

== ENCOUNTER 2017-04-23 07:38 | Day surgery (SDC) | payer OTHER, BC ==
[2017-04-23 09:52] LABS: BASOPHIL 0.3 % (0-2.0); EOSINOPHIL 6.4 % (0-4.5); MCH 33.5 pg (25.7-33.7); MCHC 32.3 g/dl (32.0-35.9); MEAN CELL VOLUME 103.6 fl (80-96); MEAN PLT VOLUME 9.3 fl (7.5-11.1); NEUTROPHILS 74.1 % (42.8-82.8); PLATELET COUNT 127 K/MM3 (134-434); RDW 15.4 % (11.9-15.9); WHITE BLOOD COUNT 7.6 K/mm3 (4.0-10.0)
[2017-04-23] MEDS ORDERED: BORTEZOMIB (VELCADE) 2.5 MG/ML SUB-Q INJECTION SQ ONE (10:00)
[2017-04-23 10:35] LABS: ALBUMIN 3.4 g/dl (3.4-5.0); ALK PHOS 83 U/L (45-117); ANION GAP 7 (8-16); BILIRUBIN,DIRECT 0.1 mg/dL (0.0-0.2); BILIRUBIN,TOTAL 0.6 mg/dL (0.2-1.0); CALCIUM 9.7 mg/dL (8.5-10.1); CO2 26 mmol/L (21-32); CREATININE 0.8 mg/dL (0.7-1.3); GLUCOSE,RANDOM 72 mg/dL (74-106); MAGNESIUM 2.3 mg/dL (1.8-2.4); SGOT/AST 23 U/L (15-37); SGPT/ALT 31 U/L (12-78); TOT PROT 8.5 g/dl (6.4-8.2)
[2017-04-23 12:07] VITALS: BP 114/71; PULSE 76; TEMP 97.6
== END 2017-04-23 14:21 | disposition home or self-care (01) ==
LOC: JONCCHEMO 07:38 → J7W 10:36 → JONCCHEMO 14:21
PROVIDERS: ATTEND Internal Medicine Hematology & Oncology
DX: Z51.11 Encounter for antineoplastic chemotherapy (principal); C90.00 Multiple myeloma not having achieved remission
CPT/HCPCS: 36415; 80053; 80076; 83735; 85025; 96401; J9041

== ENCOUNTER 2017-04-30 07:44 | Day surgery (SDC) | payer OTHER, BC ==
[2017-04-30 09:52] LABS: BASOPHIL 0.7 % (0-2.0); EOSINOPHIL 3.7 % (0-4.5); MCH 33.6 pg (25.7-33.7); MCHC 32.7 g/dl (32.0-35.9); MEAN PLT VOLUME 8.8 fl (7.5-11.1); NEUTROPHILS 83.3 % (42.8-82.8); PLATELET COUNT 121 K/MM3 (134-434); WHITE BLOOD COUNT 8.4 K/mm3 (4.0-10.0)
[2017-04-30] MEDS ORDERED: BORTEZOMIB (VELCADE) 2.5 MG/ML SUB-Q INJECTION SQ ONE (10:00)
[2017-04-30 10:17] LABS: ALBUMIN 3.2 g/dl (3.4-5.0); ALK PHOS 68 U/L (45-117); ANION GAP 7 (8-16); BILIRUBIN,DIRECT 0.2 mg/dL (0.0-0.2); BILIRUBIN,TOTAL 0.9 mg/dL (0.2-1.0); CO2 27 mmol/L (21-32); CREATININE 0.8 mg/dL (0.7-1.3); GLUCOSE,RANDOM 104 mg/dL (74-106); SGOT/AST 23 U/L (15-37); SGPT/ALT 37 U/L (12-78); TOT PROT 7.9 g/dl (6.4-8.2)
[2017-04-30 15:58] VITALS: BP 135/92; PULSE 97; TEMP 98.2
== END 2017-04-30 13:00 | disposition home or self-care (01) ==
LOC: JONCCHEMO 07:44 → J7W 10:10 → JONCCHEMO 13:00
PROVIDERS: ATTEND Internal Medicine Hematology & Oncology
DX: Z51.11 Encounter for antineoplastic chemotherapy (principal); C90.00 Multiple myeloma not having achieved remission
CPT/HCPCS: 36415; 80053; 80076; 83735; 85025; 96401; J9041

== ENCOUNTER 2017-05-07 07:43 | Day surgery (SDC) | payer OTHER, BC ==
[2017-05-07] MEDS ORDERED: BORTEZOMIB (VELCADE) 2.5 MG/ML SUB-Q INJECTION SQ ONE (10:00)
[2017-05-07 12:04] LABS: BASOPHIL 0.2 % (0-2.0); EOSINOPHIL 0.9 % (0-4.5); MCH 33.4 pg (25.7-33.7); MCHC 32.6 g/dl (32.0-35.9); MEAN CELL VOLUME 102.4 fl (80-96); MEAN PLT VOLUME 9.3 fl (7.5-11.1); NEUTROPHILS 91.6 % (42.8-82.8); PLATELET COUNT 138 K/MM3 (134-434); RDW 15.3 % (11.9-15.9); WHITE BLOOD COUNT 9.7 K/mm3 (4.0-10.0)
[2017-05-07 12:40] LABS: ALBUMIN 3.2 g/dl (3.4-5.0); ANION GAP 6 (8-16); BILIRUBIN,DIRECT 0.2 mg/dL (0.0-0.2); BILIRUBIN,TOTAL 0.8 mg/dL (0.2-1.0); CALCIUM 9.2 mg/dL (8.5-10.1); CO2 29 mmol/L (21-32); CREATININE 0.8 mg/dL (0.7-1.3); GLUCOSE,RANDOM 125 mg/dL (74-106); SGOT/AST 22 U/L (15-37); SGPT/ALT 31 U/L (12-78); TOT PROT 7.8 g/dl (6.4-8.2)
[2017-05-07 12:41] LABS: ALK PHOS 72 U/L (45-117)
[2017-05-07 15:04] VITALS: BP 117/74; PULSE 64; TEMP 98.4
== END 2017-05-07 15:16 | disposition home or self-care (01) ==
LOC: JONCCHEMO 07:43 → J7W 11:35 → JONCCHEMO 15:16
PROVIDERS: ATTEND Internal Medicine Hematology & Oncology
DX: Z51.11 Encounter for antineoplastic chemotherapy (principal); C90.00 Multiple myeloma not having achieved remission
CPT/HCPCS: 36415; 80048; 80076; 85025; 96401; J9041

== ENCOUNTER 2017-05-14 07:42 | Day surgery (SDC) | payer OTHER, BC ==
[2017-05-14] MEDS ORDERED: BORTEZOMIB (VELCADE) 2.5 MG/ML SUB-Q INJECTION SQ ONE (10:00)
[2017-05-14] MEDS ORDERED: SODIUM CHLORIDE 250 ML IV ONE ×2 (10:00→11:15)
[2017-05-14] MEDS ORDERED: ZOLEDRONIC ACID 4 MG in SODIUM CHLORIDE 100 ML IVPB ONE (10:30)
[2017-05-14 11:15] LABS: BASOPHIL 0.2 % (0-2.0); EOSINOPHIL 0.9 % (0-4.5); MCH 33.8 pg (25.7-33.7); MCHC 32.8 g/dl (32.0-35.9); MEAN CELL VOLUME 102.9 fl (80-96); MEAN PLT VOLUME 9.4 fl (7.5-11.1); NEUTROPHILS 90.8 % (42.8-82.8); PLATELET COUNT 151 K/MM3 (134-434); RDW 15.6 % (11.9-15.9); WHITE BLOOD COUNT 9.5 K/mm3 (4.0-10.0)
[2017-05-14 12:07] LABS: ALBUMIN 3.3 g/dl (3.4-5.0); ALK PHOS 72 U/L (45-117); ANION GAP 10 (8-16); BILIRUBIN,DIRECT 0.2 mg/dL (0.0-0.2); BILIRUBIN,TOTAL 0.9 mg/dL (0.2-1.0); CO2 26 mmol/L (21-32); CREATININE 0.9 mg/dL (0.7-1.3); GLUCOSE,RANDOM 107 mg/dL (74-106); MAGNESIUM 2.1 mg/dL (1.8-2.4); SGOT/AST 20 U/L (15-37); SGPT/ALT 27 U/L (12-78)
[2017-05-14 17:24] VITALS: BP 134/72; PULSE 64; TEMP 98.1
== END 2017-05-14 17:58 | disposition home or self-care (01) ==
LOC: JONCCHEMO 07:42 → J7W 12:02 → JONCCHEMO 17:58
PROVIDERS: ATTEND Internal Medicine Hematology & Oncology
PROC: 3E01305 Introduction of Other Antineoplastic into Subcutaneous Tissue, Percutaneous Approach (ICD-10-PCS; principal; 2017-05-14)
PROC: 3E033GC Introduction of Other Therapeutic Substance into Peripheral Vein, Percutaneous Approach (ICD-10-PCS; 2017-05-14)
PROC: 3E0337Z Introduction of Electrolytic and Water Balance Substance into Peripheral Vein, Percutaneous Approach (ICD-10-PCS; 2017-05-14)
DX: Z51.11 Encounter for antineoplastic chemotherapy (principal); C90.00 Multiple myeloma not having achieved remission; I10 Essential (primary) hypertension; E78.00 Pure hypercholesterolemia, unspecified; G62.9 Polyneuropathy, unspecified; M81.0 Age-related osteoporosis without current pathological fracture
CPT/HCPCS: 96365; 96401; J9041; 36415; 80053; 80076; 83735; 85025; 96417; J3489

== ENCOUNTER 2017-05-21 07:20 | Day surgery (SDC) | payer OTHER, BC ==
[2017-05-21] MEDS ORDERED: BORTEZOMIB (VELCADE) 2.5 MG/ML SUB-Q INJECTION SQ ONE (08:00)
[2017-05-21 11:02] LABS: BASOPHIL 0.5 % (0-2.0); EOSINOPHIL 1.3 % (0-4.5); MCH 33.8 pg (25.7-33.7); MEAN CELL VOLUME 102.5 fl (80-96); MEAN PLT VOLUME 9.1 fl (7.5-11.1); NEUTROPHILS 87.2 % (42.8-82.8); PLATELET COUNT 127 K/MM3 (134-434); RDW 15.7 % (11.9-15.9); WHITE BLOOD COUNT 8.2 K/mm3 (4.0-10.0)
[2017-05-21] MEDS ORDERED: SODIUM CHLORIDE 500 ML IV ONE (12:45)
[2017-05-21 13:51] VITALS: TEMP 97.9
[2017-05-21 15:13] VITALS: BP 143/84; PULSE 56
== END 2017-05-21 17:10 | disposition home or self-care (01) ==
LOC: JONCCHEMO 07:20 → J7W 09:35 → JONCCHEMO 17:10
PROVIDERS: ATTEND Internal Medicine Hematology & Oncology
DX: Z51.11 Encounter for antineoplastic chemotherapy (principal); C90.00 Multiple myeloma not having achieved remission
CPT/HCPCS: 36415; 85025; 96361; 96401; J9041

== ENCOUNTER 2017-05-28 07:38 | Day surgery (SDC) | payer OTHER, BC ==
[2017-05-28] MEDS ORDERED: BORTEZOMIB (VELCADE) 2.5 MG/ML SUB-Q INJECTION SQ ONE (08:00)
[2017-05-28 09:52] LABS: BASOPHIL 0.6 % (0-2.0); EOSINOPHIL 4.2 % (0-4.5); MCH 34.2 pg (25.7-33.7); MCHC 33.5 g/dl (32.0-35.9); MEAN PLT VOLUME 9.2 fl (7.5-11.1); NEUTROPHILS 82.3 % (42.8-82.8); PLATELET COUNT 104 K/MM3 (134-434); RDW 15.8 % (11.9-15.9); WHITE BLOOD COUNT 6.6 K/mm3 (4.0-10.0)
[2017-05-28 10:16] LABS: ALBUMIN 2.9 g/dl (3.4-5.0); ANION GAP 7 (8-16); BILIRUBIN,DIRECT 0.2 mg/dL (0.0-0.2); CALCIUM 8.7 mg/dL (8.5-10.1); CO2 27 mmol/L (21-32); CREATININE 0.8 mg/dL (0.7-1.3); GLUCOSE,RANDOM 133 mg/dL (74-106); SGOT/AST 24 U/L (15-37); SGPT/ALT 28 U/L (12-78); TOT PROT 7.5 g/dl (6.4-8.2)
[2017-05-28 10:17] LABS: ALK PHOS 59 U/L (45-117)
[2017-05-28] MEDS ORDERED: D5-1/2NS+20 MEQ KCL - 1,000 ML IV SCH (10:45)
[2017-05-28 11:02] VITALS: TEMP 97.9
[2017-05-28 17:36] VITALS: BP 131/81; PULSE 62
== END 2017-05-28 11:00 | disposition home or self-care (01) ==
LOC: JONCCHEMO 07:38 → J7W 10:06 → JONCCHEMO 11:00
PROVIDERS: ATTEND Internal Medicine Hematology & Oncology
PROC: 3E01305 Introduction of Other Antineoplastic into Subcutaneous Tissue, Percutaneous Approach (ICD-10-PCS; principal; 2017-05-28)
PROC: 3E0337Z Introduction of Electrolytic and Water Balance Substance into Peripheral Vein, Percutaneous Approach (ICD-10-PCS; 2017-05-28)
DX: Z51.11 Encounter for antineoplastic chemotherapy (principal); C90.00 Multiple myeloma not having achieved remission
CPT/HCPCS: 36415; 80053; 80076; 83735; 85025; 96361; 96401; J9041

== ENCOUNTER 2017-06-04 07:16 | Day surgery (SDC) | payer OTHER, BC ==
[2017-06-04] MEDS ORDERED: BORTEZOMIB (VELCADE) 2.5 MG/ML SUB-Q INJECTION SQ ONE (08:00)
[2017-06-04 10:18] LABS: BASOPHIL 0.1 % (0-2.0); EOSINOPHIL 1.6 % (0-4.5); MCH 33.9 pg (25.7-33.7); MEAN CELL VOLUME 102.6 fl (80-96); NEUTROPHILS 88.1 % (42.8-82.8); PLATELET COUNT 127 K/MM3 (134-434); RDW 16.1 % (11.9-15.9); WHITE BLOOD COUNT 7.1 K/mm3 (4.0-10.0)
[2017-06-04 10:42] LABS: ALBUMIN 3.1 g/dl (3.4-5.0); ALK PHOS 63 U/L (45-117); ANION GAP 5 (8-16); BILIRUBIN,DIRECT 0.2 mg/dL (0.0-0.2); BILIRUBIN,TOTAL 0.8 mg/dL (0.2-1.0); CALCIUM 8.9 mg/dL (8.5-10.1); CO2 29 mmol/L (21-32); CREATININE 0.8 mg/dL (0.7-1.3); GLUCOSE,RANDOM 82 mg/dL (74-106); SGOT/AST 19 U/L (15-37); SGPT/ALT 24 U/L (12-78); TOT PROT 7.7 g/dl (6.4-8.2)
[2017-06-04 15:06] VITALS: BP 127/78; PULSE 89; TEMP 97.5
== END 2017-06-04 11:30 | disposition home or self-care (01) ==
LOC: JONCCHEMO 07:16 → J7W 10:29 → JONCCHEMO 11:30
PROVIDERS: ATTEND Internal Medicine Hematology & Oncology
DX: Z51.11 Encounter for antineoplastic chemotherapy (principal); C90.00 Multiple myeloma not having achieved remission
CPT/HCPCS: 36415; 80053; 80076; 83735; 85025; 96401; J9041

== ENCOUNTER 2017-06-11 07:37 | Day surgery (SDC) | payer OTHER, BC ==
[2017-06-11] MEDS ORDERED: BORTEZOMIB (VELCADE) 2.5 MG/ML SUB-Q INJECTION SQ ONE (08:00)
[2017-06-11] MEDS ORDERED: SODIUM CHLORIDE 250 ML IV ONE ×2 (08:00→09:15)
[2017-06-11] MEDS ORDERED: ZOLEDRONIC ACID 4 MG in SODIUM CHLORIDE 100 ML IVPB ONE (08:30)
[2017-06-11 11:25] VITALS: TEMP 98.2
[2017-06-11 11:48] LABS: BASOPHIL 0.6 % (0-2.0); EOSINOPHIL 0.4 % (0-4.5); MCH 33.6 pg (25.7-33.7); MCHC 32.7 g/dl (32.0-35.9); MEAN CELL VOLUME 102.8 fl (80-96); MEAN PLT VOLUME 9.5 fl (7.5-11.1); NEUTROPHILS 92.9 % (42.8-82.8); PLATELET COUNT 166 K/MM3 (134-434); RDW 16.3 % (11.9-15.9)
[2017-06-11 12:29] LABS: ALBUMIN 3.2 g/dl (3.4-5.0); ALK PHOS 65 U/L (45-117); ANION GAP 7 (8-16); BILIRUBIN,DIRECT 0.2 mg/dL (0.0-0.2); BILIRUBIN,TOTAL 0.9 mg/dL (0.2-1.0); CALCIUM 9.2 mg/dL (8.5-10.1); CO2 27 mmol/L (21-32); CREATININE 0.9 mg/dL (0.7-1.3); GLUCOSE,RANDOM 131 mg/dL (74-106); MAGNESIUM 2.2 mg/dL (1.8-2.4); SGOT/AST 20 U/L (15-37); SGPT/ALT 25 U/L (12-78); TOT PROT 7.7 g/dl (6.4-8.2)
[2017-06-11 17:44] VITALS: BP 122/76; PULSE 62
== END 2017-06-11 15:11 | disposition home or self-care (01) ==
LOC: JONCCHEMO 07:37 → J7W 12:24 → JONCCHEMO 15:11
PROVIDERS: ATTEND Internal Medicine Hematology & Oncology
PROC: 3E01305 Introduction of Other Antineoplastic into Subcutaneous Tissue, Percutaneous Approach (ICD-10-PCS; principal; 2017-06-11)
PROC: 3E033GC Introduction of Other Therapeutic Substance into Peripheral Vein, Percutaneous Approach (ICD-10-PCS; 2017-06-11)
DX: Z51.11 Encounter for antineoplastic chemotherapy (principal); C90.00 Multiple myeloma not having achieved remission; M81.0 Age-related osteoporosis without current pathological fracture
CPT/HCPCS: 36415; 80053; 80076; 83735; 85025; 96365; 96401; 96417; J3489; J9041

== ENCOUNTER 2017-06-18 07:27 | Day surgery (SDC) | payer OTHER, BC ==
[2017-06-18] MEDS ORDERED: BORTEZOMIB (VELCADE) 2.5 MG/ML SUB-Q INJECTION SQ ONE (10:00)
[2017-06-18 11:03] VITALS: TEMP 98.1
[2017-06-18 11:11] LABS: BASOPHIL 0.3 % (0-2.0); EOSINOPHIL 1.2 % (0-4.5); MEAN CELL VOLUME 103.2 fl (80-96); MEAN PLT VOLUME 9.2 fl (7.5-11.1); NEUTROPHILS 90.7 % (42.8-82.8); PLATELET COUNT 157 K/MM3 (134-434); RDW 16.4 % (11.9-15.9); WHITE BLOOD COUNT 9.7 K/mm3 (4.0-10.0)
[2017-06-18 11:43] LABS: ALBUMIN 3.2 g/dl (3.4-5.0); ANION GAP 10 (8-16); BILIRUBIN,DIRECT 0.1 mg/dL (0.0-0.2); BILIRUBIN,TOTAL 0.8 mg/dL (0.2-1.0); CALCIUM 8.6 mg/dL (8.5-10.1); CO2 23 mmol/L (21-32); CREATININE 0.8 mg/dL (0.7-1.3); GLUCOSE,RANDOM 108 mg/dL (74-106); SGPT/ALT 28 U/L (12-78); TOT PROT 7.7 g/dl (6.4-8.2)
[2017-06-18 11:44] LABS: ALK PHOS 61 U/L (45-117)
[2017-06-18 11:45] LABS: MAGNESIUM 2.1 mg/dL (1.8-2.4); SGOT/AST 29 U/L (15-37)
[2017-06-18] MEDS ORDERED: [UNRECOGNIZED DRUG - OTHER] IV ONE (12:15)
[2017-06-18] MEDS ORDERED: DEXTROSE IV ONE (12:15)
[2017-06-18 15:54] VITALS: BP 134/75; PULSE 62
== END 2017-06-18 13:30 | disposition home or self-care (01) ==
LOC: JONCCHEMO 07:27 → J7W 11:42 → JONCCHEMO 13:30
PROVIDERS: ATTEND Internal Medicine Hematology & Oncology
DX: Z51.11 Encounter for antineoplastic chemotherapy (principal); C90.00 Multiple myeloma not having achieved remission
CPT/HCPCS: 36415; 80053; 80076; 83735; 85025; 96361; 96401; J9041

== ENCOUNTER 2017-06-25 07:32 | Day surgery (SDC) | payer OTHER, BC ==
[2017-06-25] MEDS ORDERED: BORTEZOMIB (VELCADE) 2.5 MG/ML SUB-Q INJECTION SQ ONE (10:00)
[2017-06-25 11:27] VITALS: TEMP 98.3
[2017-06-25 11:54] LABS: BASOPHIL 0.1 % (0-2.0); EOSINOPHIL 1.3 % (0-4.5); MCH 33.5 pg (25.7-33.7); MCHC 32.6 g/dl (32.0-35.9); MEAN CELL VOLUME 102.7 fl (80-96); MEAN PLT VOLUME 9.4 fl (7.5-11.1); NEUTROPHILS 89.1 % (42.8-82.8); PLATELET COUNT 107 K/MM3 (134-434); RDW 16.3 % (11.9-15.9); WHITE BLOOD COUNT 6.7 K/mm3 (4.0-10.0)
[2017-06-25 12:24] LABS: ALBUMIN 3.2 g/dl (3.4-5.0); ANION GAP 7 (8-16); BILIRUBIN,DIRECT 0.2 mg/dL (0.0-0.2); BILIRUBIN,TOTAL 0.8 mg/dL (0.2-1.0); CALCIUM 8.9 mg/dL (8.5-10.1); CO2 28 mmol/L (21-32); CREATININE 0.8 mg/dL (0.7-1.3); GLUCOSE,RANDOM 109 mg/dL (74-106); MAGNESIUM 2.1 mg/dL (1.8-2.4); SGOT/AST 19 U/L (15-37)
[2017-06-25 12:29] LABS: ALK PHOS 66 U/L (45-117); SGPT/ALT 27 U/L (12-78); TOT PROT 7.7 g/dl (6.4-8.2)
[2017-06-25 17:08] VITALS: PULSE 58
[2017-06-25 17:10] VITALS: BP 132/85
[2017-06-27 00:06] LABS: A/G RATIO 0.8 (0.7-1.7); ALBUMIN 2.9 g/dL (2.9-4.4); ALPHA-1-GLOBULIN 0.3 g/dL (0.0-0.4); BETA GLOBULIN 0.9 g/dL (0.7-1.3); GLOBULIN, TOTAL 4.1 g/dL (2.2-3.9); M-SPIKE 1.7 g/dL (Not Observed)
== END 2017-06-25 13:45 | disposition home or self-care (01) ==
LOC: JONCCHEMO 07:32 → J7W 12:20 → JONCCHEMO 13:45
PROVIDERS: ATTEND Internal Medicine Hematology & Oncology
DX: Z51.11 Encounter for antineoplastic chemotherapy (principal); C90.00 Multiple myeloma not having achieved remission
CPT/HCPCS: 36415; 80053; 80076; 82784; 83735; 83883; 84155; 84165; 85025; 86334; 96401; J9041

== ENCOUNTER 2017-07-02 07:40 | Day surgery (SDC) | payer OTHER, BC ==
[~2017-07-02 07:40] MED LIST changes: +BORTEZOMIB (VELCADE) 2.5 MG/ML SUB-Q INJECTION SQ ONE; -BORTEZOMIB SQ ONE
[2017-07-02 11:02] VITALS: TEMP 98.1
[2017-07-02 12:00] LABS: BASOPHIL 0.7 % (0-2.0); EOSINOPHIL 2.4 % (0-4.5); MCH 33.6 pg (25.7-33.7); MCHC 32.9 g/dl (32.0-35.9); MEAN CELL VOLUME 102.3 fl (80-96); MEAN PLT VOLUME 9.8 fl (7.5-11.1); NEUTROPHILS 80.7 % (42.8-82.8); PLATELET COUNT 122 K/MM3 (134-434); RDW 16.1 % (11.9-15.9); WHITE BLOOD COUNT 3.8 K/mm3 (4.0-10.0)
[2017-07-02 12:22] LABS: ALBUMIN 3.3 g/dl (3.4-5.0); ALK PHOS 66 U/L (45-117); ANION GAP 8 (8-16); BILIRUBIN,DIRECT 0.2 mg/dL (0.0-0.2); BILIRUBIN,TOTAL 0.7 mg/dL (0.2-1.0); CALCIUM 8.6 mg/dL (8.5-10.1); CO2 26 mmol/L (21-32); CREATININE 0.8 mg/dL (0.7-1.3); GLUCOSE,RANDOM 102 mg/dL (74-106); MAGNESIUM 2.1 mg/dL (1.8-2.4); SGOT/AST 18 U/L (15-37); SGPT/ALT 27 U/L (12-78); TOT PROT 7.3 g/dl (6.4-8.2)
[2017-07-02] MEDS ORDERED: BORTEZOMIB (VELCADE) 2.5 MG/ML SUB-Q INJECTION SQ ONE (13:00)
[2017-07-02 13:04] VITALS: BP 128/75; PULSE 62
== END 2017-07-02 12:30 | disposition home or self-care (01) ==
LOC: JONCCHEMO 07:40 → J7W 12:32
PROVIDERS: ATTEND Internal Medicine Hematology & Oncology
DX: Z51.11 Encounter for antineoplastic chemotherapy (principal); C90.00 Multiple myeloma not having achieved remission
CPT/HCPCS: 36415; 80053; 80076; 83735; 85025; 96401; J9041

== ENCOUNTER 2017-07-09 06:54 | Day surgery (SDC) | payer OTHER, BC ==
[2017-07-09] MEDS ORDERED: SODIUM CHLORIDE 250 ML IV ONE ×2 (10:00→11:15)
[2017-07-09 11:47] LABS: BASOPHIL 0.4 % (0-2.0); EOSINOPHIL 0.3 % (0-4.5); MCH 33.2 pg (25.7-33.7); MCHC 33.2 g/dl (32.0-35.9); MEAN CELL VOLUME 100.2 fl (80-96); MEAN PLT VOLUME 8.4 fl (7.5-11.1); NEUTROPHILS 91.2 % (42.8-82.8); PLATELET COUNT 135 K/MM3 (134-434); RDW 16.2 % (11.9-15.9)
[2017-07-09] MEDS ORDERED: BORTEZOMIB (VELCADE) 2.5 MG/ML SUB-Q INJECTION SQ ONE (12:00)
[2017-07-09] MEDS: ZOLEDRONIC ACID 4 MG in SODIUM CHLORIDE 100 ML IVPB ONE ×2 (12:43→13:23)
[2017-07-09 17:34] VITALS: BP 148/84; PULSE 74; TEMP 98
== END 2017-07-09 14:55 | disposition home or self-care (01) ==
LOC: JONCCHEMO 06:54 → J7W 12:13 → JONCCHEMO 14:55
PROVIDERS: ATTEND Internal Medicine Hematology & Oncology
PROC: 3E01305 Introduction of Other Antineoplastic into Subcutaneous Tissue, Percutaneous Approach (ICD-10-PCS; principal; 2017-07-09)
PROC: 3E033GC Introduction of Other Therapeutic Substance into Peripheral Vein, Percutaneous Approach (ICD-10-PCS; 2017-07-09)
DX: Z51.11 Encounter for antineoplastic chemotherapy (principal); C90.00 Multiple myeloma not having achieved remission; M80.88XS Other osteoporosis with current pathological fracture, vertebra(e), sequela; Z87.310 Personal history of (healed) osteoporosis fracture
CPT/HCPCS: 36415; 85025; 96401; 96417; J3489; J9041

== ENCOUNTER 2017-07-16 06:56 | Day surgery (SDC) | payer OTHER, BC ==
[2017-07-16] MEDS ORDERED: BORTEZOMIB (VELCADE) 2.5 MG/ML SUB-Q INJECTION SQ ONE (10:00)
[2017-07-16 10:48] LABS: BASOPHIL 0.3 % (0-2.0); EOSINOPHIL 2.2 % (0-4.5); MCH 33.6 pg (25.7-33.7); MCHC 33.2 g/dl (32.0-35.9); MEAN CELL VOLUME 101.3 fl (80-96); MEAN PLT VOLUME 9.5 fl (7.5-11.1); NEUTROPHILS 86.8 % (42.8-82.8); PLATELET COUNT 140 K/MM3 (134-434); RDW 16.1 % (11.9-15.9); WHITE BLOOD COUNT 7.4 K/mm3 (4.0-10.0)
[2017-07-16 11:21] LABS: ALBUMIN 3.1 g/dl (3.4-5.0); ANION GAP 7 (8-16); CALCIUM 8.5 mg/dL (8.5-10.1); CO2 27 mmol/L (21-32); GLUCOSE,RANDOM 88 mg/dL (74-106); MAGNESIUM 2.1 mg/dL (1.8-2.4)
[2017-07-16 11:24] LABS: ALK PHOS 63 U/L (45-117); BILIRUBIN,DIRECT 0.2 mg/dL (0.0-0.2); BILIRUBIN,TOTAL 0.8 mg/dL (0.2-1.0); CREATININE 0.9 mg/dL (0.7-1.3); SGOT/AST 18 U/L (15-37); SGPT/ALT 26 U/L (12-78); TOT PROT 7.8 g/dl (6.4-8.2)
[2017-07-16 13:30] VITALS: TEMP 97.6
[2017-07-16 13:34] VITALS: BP 107/66
[2017-07-16 13:36] VITALS: PULSE 67
== END 2017-07-16 12:00 | disposition home or self-care (01) ==
LOC: JONCCHEMO 06:56 → J7W 11:33 → JONCCHEMO 12:00
PROVIDERS: ATTEND Internal Medicine Hematology & Oncology
DX: Z51.11 Encounter for antineoplastic chemotherapy (principal); C90.00 Multiple myeloma not having achieved remission
CPT/HCPCS: 36415; 80053; 80076; 83735; 85025; 96401; J9041

== ENCOUNTER 2017-08-06 07:13 | Day surgery (SDC) | payer OTHER, BC ==
[2017-08-06 08:26] VITALS: TEMP 98.4
[2017-08-06 09:13] LABS: BASOPHIL 0.7 % (0-2.0); EOSINOPHIL 2.2 % (0-4.5); MCH 33.6 pg (25.7-33.7); MEAN CELL VOLUME 101.9 fl (80-96); MEAN PLT VOLUME 8.1 fl (7.5-11.1); PLATELET COUNT 223 K/MM3 (134-434); RDW 15.3 % (11.9-15.9); WHITE BLOOD COUNT 6.2 K/mm3 (4.0-10.0)
[2017-08-06] MEDS ORDERED: oxyCODONE HCL 5 MG TABLET PO ONE (09:30)
[2017-08-06 09:38] LABS: ALBUMIN 2.9 g/dl (3.4-5.0); ALK PHOS 109 U/L (45-117); ANION GAP 7 (8-16); BILIRUBIN,DIRECT 0.2 mg/dL (0.0-0.2); BILIRUBIN,TOTAL 0.7 mg/dL (0.2-1.0); CALCIUM 8.9 mg/dL (8.5-10.1); CO2 27 mmol/L (21-32); CREATININE 0.9 mg/dL (0.7-1.3); GLUCOSE,RANDOM 134 mg/dL (74-106); MAGNESIUM 1.9 mg/dL (1.8-2.4); SGOT/AST 25 U/L (15-37); SGPT/ALT 36 U/L (12-78); TOT PROT 7.3 g/dl (6.4-8.2)
[2017-08-06] MEDS ORDERED: BORTEZOMIB (VELCADE) 2.5 MG/ML SUB-Q INJECTION SQ ONE (10:00)
[2017-08-06] MEDS ORDERED: SODIUM CHLORIDE 250 ML IV ONE ×2 (10:00→11:15)
[2017-08-06] MEDS ORDERED: ZOLEDRONIC ACID 4 MG in SODIUM CHLORIDE 100 ML IVPB ONE (10:30)
[2017-08-06 14:30] VITALS: BP 125/81; PULSE 73
== END 2017-08-06 12:00 | disposition home or self-care (01) ==
LOC: JONCCHEMO 07:13 → J7W 09:29 → JONCCHEMO 12:00
PROVIDERS: ATTEND Internal Medicine Hematology & Oncology
PROC: 3E033GC Introduction of Other Therapeutic Substance into Peripheral Vein, Percutaneous Approach (ICD-10-PCS; principal; 2017-08-06)
PROC: 3E033GC Introduction of Other Therapeutic Substance into Peripheral Vein, Percutaneous Approach (ICD-10-PCS; 2017-08-06)
DX: C90.00 Multiple myeloma not having achieved remission (principal); M81.0 Age-related osteoporosis without current pathological fracture
CPT/HCPCS: 36415; 80053; 80076; 83735; 85025; 96361; 96365; 96417; J3489; J9041

== ENCOUNTER 2017-08-13 07:30 | Day surgery (SDC) | payer OTHER, BC ==
[2017-08-13] MEDS ORDERED: BORTEZOMIB (VELCADE) 2.5 MG/ML SUB-Q INJECTION SQ ONE (08:00)
[2017-08-13 11:44] LABS: BASOPHIL 0.5 % (0-2.0); EOSINOPHIL 4.7 % (0-4.5); MCH 33.9 pg (25.7-33.7); MCHC 33.1 g/dl (32.0-35.9); MEAN CELL VOLUME 102.4 fl (80-96); MEAN PLT VOLUME 9.2 fl (7.5-11.1); NEUTROPHILS 79.2 % (42.8-82.8); PLATELET COUNT 149 K/MM3 (134-434); WHITE BLOOD COUNT 5.8 K/mm3 (4.0-10.0)
[2017-08-13 12:19] LABS: ALBUMIN 2.8 g/dl (3.4-5.0); ALK PHOS 129 U/L (45-117); ANION GAP 8 (8-16); BILIRUBIN,DIRECT 0.2 mg/dL (0.0-0.2); BILIRUBIN,TOTAL 0.7 mg/dL (0.2-1.0); CO2 29 mmol/L (21-32); CREATININE 0.8 mg/dL (0.7-1.3); GLUCOSE,RANDOM 102 mg/dL (74-106); MAGNESIUM 2.2 mg/dL (1.8-2.4); SGOT/AST 13 U/L (15-37); SGPT/ALT 25 U/L (12-78); TOT PROT 6.8 g/dl (6.4-8.2)
[2017-08-13] MEDS ORDERED: SODIUM CHLORIDE 500 ML IV SCH (15:00)
[2017-08-13 15:27] VITALS: TEMP 97.5
[2017-08-13 15:29] VITALS: BP 103/63; PULSE 66
== END 2017-08-13 20:32 | disposition home or self-care (01) ==
LOC: JONCCHEMO 07:30 → J7W 12:09 → JONCCHEMO 20:32
PROVIDERS: ATTEND Internal Medicine Hematology & Oncology
PROC: 3E03305 Introduction of Other Antineoplastic into Peripheral Vein, Percutaneous Approach (ICD-10-PCS; principal; 2017-08-13)
PROC: 3E0337Z Introduction of Electrolytic and Water Balance Substance into Peripheral Vein, Percutaneous Approach (ICD-10-PCS; 2017-08-13)
DX: C90.00 Multiple myeloma not having achieved remission (principal); M81.0 Age-related osteoporosis without current pathological fracture
CPT/HCPCS: 36415; 80053; 80076; 83735; 85025; 96361; 96365; 96366; 96401; J9041

== ENCOUNTER 2017-08-20 07:29 | Day surgery (SDC) | payer OTHER, BC ==
[2017-08-20] MEDS ORDERED: BORTEZOMIB (VELCADE) 2.5 MG/ML SUB-Q INJECTION SQ ONE (08:00)
[2017-08-20 11:24] LABS: BASOPHIL 0.1 % (0-2.0); EOSINOPHIL 0.9 % (0-4.5); MCH 33.8 pg (25.7-33.7); MCHC 32.9 g/dl (32.0-35.9); MEAN CELL VOLUME 102.8 fl (80-96); MEAN PLT VOLUME 10.2 fl (7.5-11.1); NEUTROPHILS 90.7 % (42.8-82.8); PLATELET COUNT 141 K/MM3 (134-434); RDW 15.8 % (11.9-15.9); WHITE BLOOD COUNT 8.8 K/mm3 (4.0-10.0)
[2017-08-20 11:48] LABS: ALBUMIN 3.1 g/dl (3.4-5.0); ANION GAP 6 (8-16); BILIRUBIN,DIRECT 0.2 mg/dL (0.0-0.2); CALCIUM 8.6 mg/dL (8.5-10.1); CO2 29 mmol/L (21-32); CREATININE 0.8 mg/dL (0.7-1.3); GLUCOSE,RANDOM 117 mg/dL (74-106); MAGNESIUM 2.1 mg/dL (1.8-2.4); SGOT/AST 19 U/L (15-37); SGPT/ALT 37 U/L (12-78); TOT PROT 7.4 g/dl (6.4-8.2)
[2017-08-20 11:49] LABS: ALK PHOS 125 U/L (45-117)
[2017-08-20 15:21] VITALS: BP 99/60; PULSE 78; TEMP 98.2
== END 2017-08-20 12:15 | disposition home or self-care (01) ==
LOC: JONCCHEMO 07:29 → J7W 12:21
PROVIDERS: ATTEND Internal Medicine Hematology & Oncology
DX: Z51.11 Encounter for antineoplastic chemotherapy (principal); C90.00 Multiple myeloma not having achieved remission
CPT/HCPCS: 36415; 80053; 80076; 83735; 85025; 96401; J9041

== ENCOUNTER 2017-08-27 07:31 | Day surgery (SDC) | payer OTHER, BC ==
[2017-08-27] MEDS ORDERED: BORTEZOMIB (VELCADE) 2.5 MG/ML SUB-Q INJECTION SQ ONE (08:00)
[2017-08-27 10:48] LABS: BASOPHIL 0.2 % (0-2.0); EOSINOPHIL 1.6 % (0-4.5); MCH 33.8 pg (25.7-33.7); MEAN CELL VOLUME 102.4 fl (80-96); NEUTROPHILS 90.2 % (42.8-82.8); PLATELET COUNT 99 K/MM3 (134-434); RDW 15.7 % (11.9-15.9); WHITE BLOOD COUNT 7.2 K/mm3 (4.0-10.0)
[2017-08-27 11:37] LABS: ALBUMIN 2.8 g/dl (3.4-5.0); CALCIUM 7.8 mg/dL (8.5-10.1)
[2017-08-27 11:39] LABS: ANION GAP 7 (8-16); CO2 27 mmol/L (21-32); GLUCOSE,RANDOM 123 mg/dL (74-106)
[2017-08-27 11:42] LABS: BILIRUBIN,DIRECT 0.2 mg/dL (0.0-0.2); CREATININE 0.9 mg/dL (0.7-1.3); SGOT/AST 18 U/L (15-37); SGPT/ALT 37 U/L (12-78); TOT PROT 6.9 g/dl (6.4-8.2)
[2017-08-27 11:43] LABS: ALK PHOS 105 U/L (45-117)
[2017-08-27 14:38] VITALS: BP 134/82; PULSE 64; TEMP 99
== END 2017-08-27 12:00 | disposition home or self-care (01) ==
LOC: JONCCHEMO 07:31 → J7W 11:07 → JONCCHEMO 12:00
PROVIDERS: ATTEND Internal Medicine Hematology & Oncology
DX: Z51.11 Encounter for antineoplastic chemotherapy (principal); C90.00 Multiple myeloma not having achieved remission
CPT/HCPCS: 36415; 80053; 80076; 83735; 85025; 96401; J9041

== ENCOUNTER 2017-09-03 07:46 | Day surgery (SDC) | payer OTHER, BC ==
[2017-09-03] MEDS ORDERED: SODIUM CHLORIDE 250 ML IV ONE ×2 (08:00→09:15)
[2017-09-03] MEDS ORDERED: BORTEZOMIB (VELCADE) 2.5 MG/ML SUB-Q INJECTION SQ ONE (08:00)
[2017-09-03] MEDS ORDERED: ZOLEDRONIC ACID 4 MG in SODIUM CHLORIDE 100 ML IVPB ONE (08:30)
[2017-09-03 11:29] LABS: BASO % 0.3 % (0-2.0); EOS % 1.6 % (0-4.5); MCH 33.4 pg (25.7-33.7); MCHC 32.6 g/dl (32.0-35.9); MEAN CELL VOLUME 102.7 fl (80-96); NEUT % 90.5 % (42.8-82.8); PLATELET COUNT 105 K/MM3 (134-434); RDW 16.3 % (11.9-15.9); WHITE BLOOD COUNT 5.8 K/mm3 (4.0-10.0)
[2017-09-03 12:49] LABS: ALBUMIN 2.9 g/dl (3.4-5.0); ALK PHOS 89 U/L (45-117); ANION GAP 10 (8-16); BILIRUBIN,DIRECT 0.2 mg/dL (0.0-0.2); BILIRUBIN,TOTAL 0.9 mg/dL (0.2-1.0); CALCIUM 8.1 mg/dL (8.5-10.1); CO2 28 mmol/L (21-32); CREATININE 0.7 mg/dL (0.7-1.3); GLUCOSE,RANDOM 113 mg/dL (74-106); MAGNESIUM 2.1 mg/dL (1.8-2.4); SGOT/AST 17 U/L (15-37); SGPT/ALT 26 U/L (12-78); TOT PROT 6.8 g/dl (6.4-8.2)
[2017-09-03 13:03] VITALS: TEMP 98.3
[2017-09-03] MEDS ORDERED: POTASSIUM CHLORIDE 20 MEQ in SODIUM CHLORIDE 250 ML IVPB ONE (13:15)
[2017-09-03 17:41] VITALS: BP 158/81; PULSE 60
== END 2017-09-03 17:00 | disposition home or self-care (01) ==
LOC: JONCCHEMO 07:46 → J7W 11:15 → JONCCHEMO 17:00
PROVIDERS: ATTEND Internal Medicine Hematology & Oncology
PROC: 3E01305 Introduction of Other Antineoplastic into Subcutaneous Tissue, Percutaneous Approach (ICD-10-PCS; principal; 2017-09-03)
PROC: 3E033GC Introduction of Other Therapeutic Substance into Peripheral Vein, Percutaneous Approach (ICD-10-PCS; 2017-09-03)
PROC: 3E0337Z Introduction of Electrolytic and Water Balance Substance into Peripheral Vein, Percutaneous Approach (ICD-10-PCS; 2017-09-03)
DX: Z51.11 Encounter for antineoplastic chemotherapy (principal); C90.00 Multiple myeloma not having achieved remission; I10 Essential (primary) hypertension; E78.00 Pure hypercholesterolemia, unspecified; M81.0 Age-related osteoporosis without current pathological fracture; G62.9 Polyneuropathy, unspecified
CPT/HCPCS: 36415; 80053; 80076; 83735; 85025; 96361; 96365; 96401; 96417; J3489; J9041

== ENCOUNTER 2017-09-10 07:32 | Day surgery (SDC) | payer OTHER, BC ==
[2017-09-10] MEDS ORDERED: BORTEZOMIB (VELCADE) 2.5 MG/ML SUB-Q INJECTION SQ ONE (10:00)
[2017-09-10 12:58] LABS: BASO # 0.1 #; BASO % 1.5 % (0-2.0); EOS # 0.2 #; EOS % 3.6 % (0-4.5); LYMPH # 0.3; MCHC 32.1 g/dl (32.0-35.9); MEAN CELL VOLUME 102.8 fl (80-96); MEAN PLT VOLUME 9.4 fl (7.5-11.1); MONO # 1.1 #; NEUT # 4.4 #; NEUT % 71.2 % (42.8-82.8); PLATELET COUNT 134 K/MM3 (134-434); RDW 16.6 % (11.9-15.9); WHITE BLOOD COUNT 6.2 K/mm3 (4.0-10.0)
[2017-09-10 14:05] LABS: ALBUMIN 2.8 g/dl (3.4-5.0); ALK PHOS 84 U/L (45-117); ANION GAP 9 (8-16); BILIRUBIN,DIRECT 0.2 mg/dL (0.0-0.2); BILIRUBIN,TOTAL 0.6 mg/dL (0.2-1.0); CALCIUM 8.2 mg/dL (8.5-10.1); CO2 28 mmol/L (21-32); CREATININE 0.7 mg/dL (0.7-1.3); GLUCOSE,RANDOM 85 mg/dL (74-106); MAGNESIUM 2.2 mg/dL (1.8-2.4); SGOT/AST 22 U/L (15-37); SGPT/ALT 21 U/L (12-78); TOT PROT 6.4 g/dl (6.4-8.2)
[2017-09-10 17:32] VITALS: BP 106/55; PULSE 77; TEMP 97.8
== END 2017-09-10 15:00 | disposition home or self-care (01) ==
LOC: JONCCHEMO 07:32
PROVIDERS: ATTEND Internal Medicine Hematology & Oncology
DX: Z51.11 Encounter for antineoplastic chemotherapy (principal); C90.00 Multiple myeloma not having achieved remission
CPT/HCPCS: 36415; 80053; 80076; 83735; 85025; 96401; J9041

== ENCOUNTER 2017-09-17 07:42 | Day surgery (SDC) | payer OTHER, BC ==
[2017-09-17] MEDS ORDERED: BORTEZOMIB (VELCADE) 2.5 MG/ML SUB-Q INJECTION SQ ONE (10:00)
[2017-09-17 11:57] LABS: BASO % 0.3 % (0-2.0); EOS % 0.5 % (0-4.5); HEMOGLOBIN 11.6 GM/dL (11.7-16.9); MCH 33.2 pg (25.7-33.7); MCHC 32.3 g/dl (32.0-35.9); MEAN CELL VOLUME 102.9 fl (80-96); MEAN PLT VOLUME 9.6 fl (7.5-11.1); NEUT % 93.2 % (42.8-82.8); PLATELET COUNT 136 K/MM3 (134-434); RBC 3.49 M/mm3 (4.00-5.60); RDW 16.7 % (11.9-15.9); WHITE BLOOD COUNT 6.2 K/mm3 (4.0-10.0)
[2017-09-17 12:30] LABS: ALBUMIN 3.1 g/dl (3.4-5.0); ALK PHOS 81 U/L (45-117); ANION GAP 10 (8-16); BILIRUBIN,DIRECT 0.2 mg/dL (0.0-0.2); BILIRUBIN,TOTAL 0.7 mg/dL (0.2-1.0); BLOOD UREA NITROGEN 14 mg/dL (7-18); CALCIUM 8.7 mg/dL (8.5-10.1); CHLORIDE 105 mmol/L (98-107); CO2 27 mmol/L (21-32); CREATININE 0.8 mg/dL (0.7-1.3); GLUCOSE,RANDOM 149 mg/dL (74-106); MAGNESIUM 2.1 mg/dL (1.8-2.4); POTASSIUM 3.5 mmol/L (3.5-5.1); SGOT/AST 18 U/L (15-37); SGPT/ALT 17 U/L (12-78); SODIUM 142 mmol/L (136-145)
[2017-09-17 18:04] VITALS: BP 148/80; PULSE 75; TEMP 98.3
== END 2017-09-17 16:20 | disposition home or self-care (01) ==
LOC: JONCCHEMO 07:42 → J7W 13:48 → JONCCHEMO 16:20
PROVIDERS: ATTEND Internal Medicine Hematology & Oncology
DX: Z51.11 Encounter for antineoplastic chemotherapy (principal); C90.00 Multiple myeloma not having achieved remission
CPT/HCPCS: 36415; 80053; 80076; 83735; 85025; 96401; J9041

== ENCOUNTER 2017-10-07 14:52 | Inpatient (IN) | payer OTHER, BC ==
[2017-10-07] MEDS ORDERED: SODIUM CHLORIDE 0.9% 1000 ML INFUS.BAG IV ONE ×2 (15:45→18:23)
[2017-10-07] MEDS ORDERED: ACETAMINOPHEN INJECTION 100 ML IVPB ONE (16:41)
[2017-10-07 16:48] LABS: VENOUS PH 7.35 (7.32-7.42)
[2017-10-07 16:49] LABS: VENOUS PO2 21.4 mmHg (28-48)
[2017-10-07] MEDS ORDERED: ACETAMINOPHEN 1000 MG/100 ML VIAL (NON FORMULARY) IVPB ONE (16:50)
[2017-10-07 16:51] LABS: VENOUS PC02 61.5 mmHg (38-52)
--- NOTE | 2017-10-07 17:10 | PDOC ---
History of Present Illness - General Chief Complaint: Injury Stated Complaint: LOW BLLOD PRESSURE Time Seen by Provider: 10/07/17 15:20 - History of Present Illness Initial Comments: 10/07/17 17:01 Patient is a 77 y.o. male with PMH of Multiple Myeloma (on chemotherapy, last chemotherapy 1 week previous, next scheduled chemotherapy 10/08/17), HTN, Non- obstructive CAD, Paroxysmal Afib (on Eloquis), R Carotid CA (s/p resection) BIBA who presents following a syncopal episode @ home. Patient states he was standing in the bathroom post bowel movement when he felt "lightheaded" and then recalls laying on his back on the ground. Patient's son and daughter at bedside heard patient fall and note a < 1 minute period when patient was difficult to arouse. Past History - Past Medical History Allergies/Adverse Reactions: Allergies Allergy/AdvReac Type Severity Reaction Status Date / Time No Known Drug Allergies Allergy Verified 10/07/17 15:43 Home Medications: Ambulatory Orders Amlodipine Besylate/Benazepril [Lotrel 5-10 mg Capsule] 5 - 20 mg PO DAILY 10/07 Apixaban [Eliquis -] 5 mg PO BID 10/07/17 Dexamethasone 4 mg PO WEEKLY 10/07/17 Lenalidomide [Revlimid] 15 mg PO DAILY 10/07/17 Levothyroxine [Synthroid -] 50 mcg PO DAILY 10/07/17 Metoprolol Succinate [Toprol Xl -] 50 mg PO DAILY 10/07/17 Pantoprazole Sodium [Protonix -] 40 mg PO DAILY 10/07/17 Paroxetine HCl [Paxil -] 30 mg PO DAILY 10/07/17 Pregabalin [Lyrica -] 50 mg PO BID 10/07/17 Sotalol HCl [Betapace -] 80 mg PO BID 10/07/17 Tamsulosin HCl [Flomax] 0.4 mg PO DAILY 10/07/17 Valacyclovir HCl [Valtrex -] 500 mg PO DAILY 10/07/17 Anemia: Yes Asthma: No Cancer: Yes (multiple myeloma, melanoma, parotid) Cardiac Disorders: No CVA: No COPD: No CHF: No Dementia: No Diabetes: No GI Disorders: No Disorders: No HTN: Yes Hypercholesterolemia: No Liver Disease: No Seizures: No Thyroid Disease: No - Surgical History Abdominal Surgery: Yes (COLOSTOMY) Appendectomy: No Cardiac Surgery: No Cholecystectomy: No Lung Surgery: No Neurologic Surgery: No Orthopedic Surgery: Yes (VERTEBROPLASTY) - Immunization History Immunization Up to Date: Yes - Suicide/Smoking/Psychosocial Hx Smoking History: Never smoked Have you smoked in the past 12 months: No Number of Cigarettes Smoked Daily: 0 Information on smoking cessation initiated: No Hx Alcohol Use: No Drug/Substance Use Hx: No Substance Use Type: None Hx Substance Use Treatment: No Review of Systems - Review of Systems Constitutional: No: Chills, Fever Respiratory: No: Shortness of Breath Cardiac (ROS): No: Chest Pain ABD/GI: No: Constipated, Diarrhea, Nausea, Vomiting *Physical Exam - Vital Signs Last Vital Signs Temp Pulse Resp BP Pulse Ox 98.3 F 89 18 66/55 100 10/07/17 15:43 10/07/17 15:43 10/07/17 15:43 10/07/17 15:43 10/07/17 15:43 - Physical Exam General Appearance: Yes: Nourished, Appropriately Dressed, Thin HEENT: positive: EOMI, BARRETT, Other ((-) Griggs sign; no visible cranial lacerations/hematoma) Neck: positive: Trachea midline, Supple Respiratory/Chest: positive: Lungs Clear Cardiovascular: positive: S1, S2. negative: JVD, Murmur Vascular Pulses: Dorsalis-Pedis (R): 2+, Doralis-Pedis (L): 2+ Gastrointestinal/Abdominal: positive: Normal Bowel Sounds, Soft Extremity: positive: Normal Capillary Refill, Other (RLE internally rotated, neurovascularly intact) ED Treatment Course - LABORATORY CBC & Chemistry Diagram: 10/08/17 18:00 10/08/17 06:27 - ADDITIONAL ORDERS Additional order review: Laboratory Results 10/07/17 16:35 VBG pH 7.35 POC VBG pCO2 61.5 H* D POC VBG pO2 21.4 L D Mixed VBG HCO3 33.5 H - RADIOLOGY Radiology Studies Ordered: Category Date Time Status CHEST X-RAY PORTABLE* [RAD] Stat Radiology 10/07/17 15:44 Ordered HIP & PELVIS-RIGHT [RAD] Stat Radiology 10/07/17 15:46 Ordered - Medications Given in the ED: ED Medications Discontinued Medications Generic Name Dose Route Start Last Admin Trade Name Freq PRN Reason Stop Dose Admin Acetaminophen 1,000 mg 10/07/17 16:50 10/07/17 16:52 Ofirmev Injection - IVPB 10/07/17 16:51 1,000 mg ONCE ONE Administration Sodium Chloride 1,000 ml 10/07/17 15:45 10/07/17 16:50 Normal Saline - IV 10/07/17 15:46 1,000 ml ONCE ONE Administration Medical Decision Making - Medical Decision Making 10/07/17 21:50 Patient is a 77 y.o. male who presents following a syncopal episode @ home w/ associated head trauma. At presentation patient afebrile and hypotensive (SBP 60's). Patient resuscitated w/ IV NS x2 --> repeat BP 98/72 --> 118/98. EKS shows NSR with no deviations, prolonged QT, no concerning ST wave changes, poor R wave progression V1-V6. CT Head negative for acute bleed. Leukocytosis (20.1 ), PCO2 62 -- patient on 2 L NC. Femur XR shows intercontranteric fracture of R femur. Pain control w/Dilaudid. Patient admitted to Dr. Gogo Hutchins (covers for patient's PCP Dr. Caren Lopez). As per EMR patient has h/o fall - will admit to telemetry. Case d/w Dr. Kaur (Orthopedics) - will evaluated patient tomorrow, likely operative intervention in 3-5 days as patient on Eloquis. Will continue to monitor while in ED. Patient's daughter, Ladan Tomlin, *DC/Admit/Observation/Transfer Diagnosis at time of Disposition: Femur fracture - Discharge Dispostion Condition at time of disposition: Fair Admit: Yes - Referrals - Patient Instructions - Post Discharge Activity
[2017-10-07] MEDS ORDERED: HYDROmorphone HCL CARPU-JECT 1 MG/1 ML DISP.SYRIN IVPB ONE (18:09)
[2017-10-07] MEDS ORDERED: HYDROmorphone HCL CARPU-JECT 2 MG/1 ML DISP.SYRIN ONE (18:35)
[2017-10-07] MEDS ORDERED: HYDROmorphone HCL CARPU-JECT 1 MG/1 ML DISP.SYRIN IVPUSH ONE (18:39)
--- NOTE | 2017-10-07 19:02 | PDOC ---
Attending Attestation - Resident Resident Name: Cecily Escalera - ED Attending Attestation I have performed the following: I have examined & evaluated the patient, The case was reviewed & discussed with the resident, I agree w/resident's findings & plan, Exceptions are as noted - HPI HPI: 10/07/17 19:01 77 M with h/o Parotid CA, Multiple Myeloma, active chemotherapy, Afib, Colon Resection with Colostomy, presenting to ER with syncopal episode and L hip pain. Pt states that he felt lightheaded after having a BM. He subsequently fell to the ground, landing on his R hip. He denies headstrike. States the he may have lost consciousness briefly. Pt now reports significant pain in his R hip and inability to move his R leg. Denies DOSHI/N/V. Denies neck pain. Pt denies CP/SOB/palpitations. Denies F/C. - Physicial Exam PE: 10/07/17 19:03 "GENERAL: Awake, alert, and fully oriented, in no acute distress HEAD: No signs of trauma EYES: PERRLA, EOMI, sclera anicteric, conjunctiva clear ENT: Auricles normal inspection, hearing grossly normal, nares patent, oropharynx clear without exudates. Moist mucosa NECK: Nontender, no stepoffs, Normal ROM, supple, no lymphadenopathy, JVD, or masses LUNGS: Breath sounds equal, clear to auscultation bilaterally. No wheezes, and no crackles HEART: Regular rate and rhythm, normal S1 and S2, no murmurs, rubs or gallops ABDOMEN: Soft, nontender, normoactive bowel sounds. No guarding, no rebound. No masses EXTREMITIES: R hip deformity, tender to palpation, RLE externally rotated, neurovascularly intact NEUROLOGICAL: Cranial nerves II through XII intact. 5/5 strength and sensation in all extremities, Normal speech, normal gait SKIN: Warm, Dry, normal turgor, no rashes or lesions noted. " - Medical Decision Making 10/07/17 19:04 77 M with syncopal episode and R hip deformity. Found to be hypotensive in ER with BP 60/40s. Pt is active chemo pt, and given immune compromised status, concerning for sepsis. Hypotension unlikely to be trauma-related. Bedside FAST exam negative. - Labs, cultures, lactate - XR R hip and pelvis - IVF, abx Case discussed in detail with admitting physician including history, physical exam and ancillary studies. Admitting physician has assumed care for the patient and will follow all pending diagnostics and complete the evaluation and treatment.
[2017-10-07] MEDS ORDERED: VANCOMYCIN 1 GRAM (PRE-DOCKED) 1,000 MG/250 ML BAG IVPB ONE ×2 (19:07→19:22)
[2017-10-07] MEDS ORDERED: PIPERACILLIN/TAZOB 4.5 GM/100 ML PRE-DOCKED IVPB ONE (19:15)
[2017-10-07] MEDS ORDERED: PIPERACILLIN/TAZOB 4.5 GM 4.5 GM/100 ML BAG IVPB ONE (19:22)
[2017-10-07 20:10] LABS: INR 1.5 (0.82-1.09)
[2017-10-07 20:13] LABS: ACTIVATED PTT 27.7 SECONDS (26.9-34.4)
[2017-10-07] MEDS ORDERED: ONDANSETRON 4 MG/2 ML VIAL IVPUSH PRN (20:22)
[2017-10-07 20:28] LABS: ALBUMIN 2.5 g/dl (3.4-5.0); ANION GAP 8 (8-16); BILIRUBIN,TOTAL 1.1 mg/dL (0.2-1.0); BLOOD UREA NITROGEN 22 mg/dL (7-18); CALCIUM 7.3 mg/dL (8.5-10.1); CHLORIDE 107 mmol/L (98-107); CO2 31 mmol/L (21-32); CREATININE 1.1 mg/dL (0.7-1.3); GLUCOSE,RANDOM 100 mg/dL (74-106); SGOT/AST 29 U/L (15-37); SGPT/ALT 36 U/L (12-78); SODIUM 146 mmol/L (136-145); TOT PROT 5.7 g/dl (6.4-8.2)
[2017-10-07 20:29] LABS: ALK PHOS 56 U/L (45-117)
[2017-10-07] MEDS: SODIUM CHLORIDE 1,000 ML IV SCH (20:38)
[2017-10-07 21:44] LABS: HEMATOCRIT 34.1 % (35.4-49); HEMOGLOBIN 10.6 GM/dL (11.7-16.9); MCH 32.6 pg (25.7-33.7); RBC 3.24 M/mm3 (4.00-5.60); WHITE BLOOD COUNT 20.8 K/mm3 (4.0-10.0)
[2017-10-07 21:45] LABS: ADD RBC MORPHOLOGY YES; MEAN PLT VOLUME 8.9 fl (7.5-11.1); PLATELET COUNT 239 K/MM3 (134-434); RDW 17.1 % (11.9-15.9)
[2017-10-07 21:50] LABS: ANISOCYTOSIS 2+; MACROCYTOSIS 2+; SMUDGE CELLS FEW
[2017-10-07] MEDS ORDERED: POTASSIUM CHLORIDE ORAL LIQUID 20 MEQ/15 ML PO ONE (23:00)
[2017-10-07] MEDS ORDERED: POTASSIUM CHLORIDE ORAL LIQUID 20 MEQ/15 ML ONE ×2 (23:16→23:17)
[2017-10-08 02:26] LABS: MAGNESIUM 1.7 mg/dL (1.8-2.4)
[2017-10-08] MEDS ORDERED: HYDROmorphone HCL CARPU-JECT 2 MG/1 ML DISP.SYRIN ONE ×2 (02:47→11:55)
[2017-10-08] MEDS: HYDROmorphone HCL CARPU-JECT 2 MG/1 ML DISP.SYRIN IVPB PRN ×2 (02:49→18:19)
[2017-10-08 04:19] LABS: URINE APPEARANCE CLOUDY; URINE BILIRUBIN NEGATIVE (NEGATIVE); URINE BLOOD NEGATIVE (NEGATIVE); URINE COLOR AMBER; URINE GLUCOSE (UA) NEGATIVE (NEGATIVE); URINE KETONE NEGATIVE (NEGATIVE); URINE LEUK ESTERASE NEGATIVE (NEGATIVE); URINE NITRITE NEGATIVE (NEGATIVE); URINE UROBILINOGEN NEGATIVE mg/dL (0.2-1.0)
[2017-10-08 04:32] LABS: URINE PROTEIN 1+ (NEGATIVE)
--- NOTE | 2017-10-08 04:49 | HOSP ---
Physical Examination Vital Signs: Vital Signs Temperature 97.7 F 10/08/17 00:55 Pulse Rate 78 10/08/17 00:55 Respiratory Rate 18 10/08/17 00:55 Blood Pressure 99/70 10/08/17 00:55 O2 Sat by Pulse Oximetry (%) 96 10/08/17 00:55 Constitutional: Yes: No Distress, Calm Eyes: Yes: EOM Intact HENT: Yes: WNL Neck: Yes: Supple Cardiovascular: Yes: Regular Rate and Rhythm Respiratory: Yes: Regular Gastrointestinal: Yes: WNL Extremities: Yes: Deformity, Internal Rotation, Other (contracted R hip, LLE) Labs: CBC, BMP 10/07/17 16:30 10/07/17 19:34 Hospitalist Encounter Assessment: Called to examine pt, given recent hx of fall in ED. As per pt, while he was being turned while laying on his stretcher, he fell onto the ground. States that he fell on his LUE and LLE, but did not suffer any injury, head trauma, or LOC. Event was not preceded by palpitations, tonic-clonic episodes, tongue biting, or loss of bladder or bowel function. As per nurse, pt's fall was witnessed by family members and he was immediately helped back into the stretcher. Vitals stable during physical exam. Pt in no distress. General: pt resting comfortably in bed, in no acute distress. AAOx3 HEENT: EOM intact, PERRL (R eye), L eye with eyepatch. Without cervical lymphadenopathy Cardio: S1, S2 WNL, RRR, no r/m/g appreciated Respiratory: CTA B/l. without rhonchi/wheezes/crackles. no accessory m. usage. Abdomen: soft, nondistended, nontender. +colostomy intact Upper extremities: 2+ radial pulses b/l, petechiae (chronic) noted b/l on forearms Lower extremities: RLE contracted, internally rotated. sensation intact. 2+ dorsalis pedis pulse, without edema. LLE: good active and passive ROM, 2+ dorsalis pedis pulse, without edema. Plan -Fall precaution set in place, F/u EKG -While fall was witnessed, and pt denies prolonged injury- d/t pt's hx of multiple myeloma, will get imaging studies to r/o -Head CT non-con -X-rays lower extremities b/l (hip, femur, tib/fib, ankle/foot) Thank you Visit type - Emergency Visit Emergency Visit: Yes ED Registration Date: 10/07/17 Care time: The patient presented to the Emergency Department on the above date and was hospitalized for further evaluation of their emergent condition. - New Patient This patient is new to me today: Yes Date on this admission: 10/08/17 - Critical Care Critical Care patient: No
[2017-10-08 07:29] LABS: CHLORIDE 107 mmol/L (98-107); POTASSIUM 3.8 mmol/L (3.5-5.1); SODIUM 146 mmol/L (136-145)
[2017-10-08 07:36] LABS: ALBUMIN 2.6 g/dl (3.4-5.0); ALK PHOS 53 U/L (45-117); ANION GAP 8 (8-16); BILIRUBIN,TOTAL 1.2 mg/dL (0.2-1.0); BLOOD UREA NITROGEN 29 mg/dL (7-18); CALCIUM 7.2 mg/dL (8.5-10.1); CO2 31 mmol/L (21-32); CREATININE 1.5 mg/dL (0.7-1.3); GLUCOSE,RANDOM 101 mg/dL (74-106); SGOT/AST 30 U/L (15-37); SGPT/ALT 34 U/L (12-78); TOT PROT 6.1 g/dl (6.4-8.2)
--- NOTE | 2017-10-08 07:59 | EKG ---
Test Reason : Blood Pressure : / mmHG Vent. Rate : 077 BPM Atrial Rate : 077 BPM P-R Int : 178 ms QRS Dur : 084 ms QT Int : 446 ms P-R-T Axes : -06 015 066 degrees QTc Int : 504 ms NORMAL SINUS RHYTHM PROLONGED QT ABNORMAL ECG WHEN COMPARED WITH ECG OF 07-OCT-2017 19:47, NO SIGNIFICANT CHANGE WAS FOUND Confirmed by LINDA HOLLEY, PERLA ([id number]) on 10/08/2017 7:58:51 AM Referred By: Confirmed By:PERLA MCKEON MD
--- NOTE | 2017-10-08 08:05 | EKG ---
Test Reason : Blood Pressure : / mmHG Vent. Rate : 074 BPM Atrial Rate : 074 BPM P-R Int : 184 ms QRS Dur : 086 ms QT Int : 480 ms P-R-T Axes : 039 031 064 degrees QTc Int : 532 ms NORMAL SINUS RHYTHM PROLONGED QT ABNORMAL ECG WHEN COMPARED WITH ECG OF 07-OCT-2017 15:24, NON-SPECIFIC CHANGE IN ST SEGMENT IN ANTERIOR LEADS T WAVE INVERSION NOW EVIDENT IN ANTERIOR LEADS Confirmed by LINDA HOLLEY, PERLA ([id number]) on 10/08/2017 8:05:25 AM Referred By: Confirmed By:PERLA MCKEON MD
[2017-10-08 08:09] LABS: INR 1.33 (0.82-1.09)
[2017-10-08 08:12] LABS: ACTIVATED PTT 28.9 SECONDS (26.9-34.4)
--- NOTE | 2017-10-08 08:39 | PN ---
Progress Note (short form) - Note Progress Note: Pt seen and examined in the ER. He is 1 day s/p fall. He has a h/o metastatic Multiple Myeloma. He c/o right hip, thigh, anf right low back pain. He is unable to ambulate. He is on Eliquis, last took it 1 day ago. AVSS H/H stable PT high at 17 INR high at 1.5 PE RLE is mildly shortened and externally rotated Grossly NVI + mod swelling in the thigh Intact ROM at the right knee, ankle, foot, toes. Xrays Show a displaced pathalogic fracture of the right IT area Moth eaten endosteum in the proximal femur Imp Pathalogic fracture right proximal femur, IT area, MM. Rec Medical and hematology clearance for surgery Stop Eliquis. This will delay surgery as we cannot use a tourniquet on the leg/femur. Will undergo a right femur ORIF with a long IM/Gamma Nail when medically cleared NWB until then
[2017-10-08] MEDS ORDERED: PREGABALIN 50 MG CAPSULE ONE (09:29)
[2017-10-08] MEDS: LEVOTHYROXINE NA 50 MCG TABLET (FP) PO SCH (09:40)
[2017-10-08] MEDS: PANTOPRAZOLE 40 MG TABLET (FP) PO SCH (09:40)
[2017-10-08] MEDS: METOPROLOL SUCCINATE 50 MG TAB.SR.24H (FP) PO SCH (09:40)
[2017-10-08] MEDS: PREGABALIN 50 MG CAPSULE PO SCH ×2 (09:40→21:04)
[2017-10-08] MEDS: valACYclovir HCL 500 MG TABLET (FP) PO SCH (09:40)
[2017-10-08] MEDS ORDERED: PARoxetine HCL 30 MG TABLET PO SCH (10:00)
[2017-10-08] MEDS ORDERED: TAMSULOSIN HCL 0.4 MG CAP.ER.24H (FP) PO SCH (10:00)
[2017-10-08] MEDS ORDERED: LENALIDOMIDE PO SCH (10:00)
[2017-10-08] MEDS ORDERED: SOTALOL HCL 80 MG TABLET (FP) PO SCH (10:00)
--- NOTE | 2017-10-08 10:01 | CONSULT ---
Consult Consult Specialty:: Hematology - History of Present Illness History of Present Illness: 77 M H/O hTN, Proxysmal Afib and PSVT, on AC, MM, T2DM, Hypercholesterolemia on treatment, poor gait present after an episode of syncope, as per patient Dizziness and fall developed sever Rt Hip pain, w/u shows Rt femur intertrochanteric pathological fracture, evaluated by orthopedics, Cardiology Well-Known to our practice. MM on RVD - History Source History Provided By: Patient, Family Member, Medical Record - Past Medical History WEB SITE SPECIALIST: Yes: Syncope, Other (Residual right lower neuron facial palsy) Cardio/Vascular: Yes: AFIB, CAD, HTN, Hyperlipdemia, Other (PSVT) Pulmonary: Yes: Other (few ronchi mostly on Rt base). No: Bronchitis (no chronic sputum production says current sputum production isnew) Renal/: Yes: BPH, Neurogenic Bladder, UTI, Other Infectious Disease: Yes: Other (fever possible aspiration pneumonia) ENT: Yes: Other (legally blind right eye) Dermatology: Yes: Melanoma - Alcohol/Substance Use Hx Alcohol Use: No - Smoking History Smoking history: Never smoked Have you smoked in the past 12 months: No Aproximately how many cigarettes per day: 0 - Social History ADL: Support Services History of Recent Travel: No Home Medications - Allergies Allergies/Adverse Reactions: Allergies Allergy/AdvReac Type Severity Reaction Status Date / Time No Known Drug Allergies Allergy Verified 10/07/17 15:43 - Home Medications Home Medications: Ambulatory Orders Amlodipine Besylate/Benazepril [Lotrel 5-10 mg Capsule] 5 - 20 mg PO DAILY 10/07 Apixaban [Eliquis -] 5 mg PO BID 10/07/17 Dexamethasone 4 mg PO WEEKLY 10/07/17 Lenalidomide [Revlimid] 15 mg PO DAILY 10/07/17 Levothyroxine [Synthroid -] 50 mcg PO DAILY 10/07/17 Metoprolol Succinate [Toprol Xl -] 50 mg PO DAILY 10/07/17 Pantoprazole Sodium [Protonix -] 40 mg PO DAILY 10/07/17 Paroxetine HCl [Paxil -] 30 mg PO DAILY 10/07/17 Pregabalin [Lyrica -] 50 mg PO BID 10/07/17 Sotalol HCl [Betapace -] 80 mg PO BID 10/07/17 Tamsulosin HCl [Flomax] 0.4 mg PO DAILY 10/07/17 Valacyclovir HCl [Valtrex -] 500 mg PO DAILY 10/07/17 Physical Exam Vital Signs: Vital Signs Temperature 97.6 F 10/08/17 07:05 Pulse Rate 72 10/08/17 07:05 Respiratory Rate 18 10/08/17 00:55 Blood Pressure 127/74 10/08/17 07:05 O2 Sat by Pulse Oximetry (%) 99 10/08/17 07:05 Constitutional: Yes: Well Nourished, No Distress Eyes: Yes: Conjunctiva Clear HENT: Yes: Atraumatic Neck: Yes: Supple, Trachea Midline Cardiovascular: Yes: Regular Rate and Rhythm Respiratory: Yes: Regular Gastrointestinal: Yes: Normal Bowel Sounds, Soft Extremities: Yes: External Rotation Edema: No Labs: CBC, BMP 10/07/17 16:30 10/08/17 06:27 Imaging - Results X-ray: Report Reviewed Assessment/Plan Fracture s/p fall: -for ORIF -cardiology/ortho c/s notes reviewed -eliquis on hold for planned ORIF. 2-3days can be held and resumption, post surgery as per surgical discretion,. -cr to be monitored. -gentle hydration Multiple Myeloma with extensive bony and spine involvement. -not in remission -on RVD -velcade more than 2weeks ago -can hold revlimid in the hospital pAF -on eliquis as an OP. Leucocytosis repeat CBC HyperNa/CHEPE: -on gentle hydration -for BMP will follow
--- NOTE | 2017-10-08 13:52 | HP ---
Admitting History and Physical - Primary Care Physician PCP: Caren Lopez - Admission Chief Complaint: Rt Hip pain s/p fall History of Present Illness: 77 M H/O hTN, Proxysmal Afib and PSVT, on AC, MM, T2DM, Hypercholesterolemia on treatment, poor gait present after an episode of syncope, as per patient Dizziness and fall with TLOC patient developed sever Rt Hip pain, couldn't get UP so came to Ed for evaluation, no incontinence, no head trauma, patient was evaluated in the Ed w/u shows Rt femur intertrochanteric pathological fracture, evaluated by orthopedics, Cardiology and oncology consult at the time of examination hemodynamically stbale, yesterday in the Ed TWBC 20 K with high Lactic acid patient had episode of hypotention responded to IV NS infusion BP meds are on Hold, no source of infection patient is afebrile. - Past Medical History BEEF BONER: Yes: Syncope, Other (Residual right lower neuron facial palsy) Cardiovascular: Yes: AFIB, CAD, HTN, Hyperlipdemia, Other (PSVT) Pulmonary: Yes: Other (few ronchi mostly on Rt base). No: Bronchitis (no chronic sputum production says current sputum production isnew) Renal/: Yes: BPH, Neurogenic Bladder, UTI, Other Heme/Onc: Yes: Cancer (Parotid cancer, melanoma), Other (Multiple Myeloma) Infectious Disease: Yes: Other (fever possible aspiration pneumonia) ENT: Yes: Other (legally blind right eye) Dermatology: Yes: Melanoma - Past Surgical History Past Surgical History: Yes: Colostomy (For sigmoid colon resection after perforation) - Smoking History Smoking history: Never smoked Have you smoked in the past 12 months: No Aproximately how many cigarettes per day: 0 - Alcohol/Substance Use Hx Alcohol Use: No - Social History ADL: Support Services History of Recent Travel: No Home Medications - Allergies Allergies/Adverse Reactions: Allergies Allergy/AdvReac Type Severity Reaction Status Date / Time No Known Drug Allergies Allergy Verified 10/07/17 15:43 - Home Medications Home Medications: Ambulatory Orders Amlodipine Besylate/Benazepril [Lotrel 5-10 mg Capsule] 5 - 20 mg PO DAILY 10/07 Apixaban [Eliquis -] 5 mg PO BID 10/07/17 Dexamethasone 4 mg PO WEEKLY 10/07/17 Lenalidomide [Revlimid] 15 mg PO DAILY 10/07/17 Levothyroxine [Synthroid -] 50 mcg PO DAILY 10/07/17 Metoprolol Succinate [Toprol Xl -] 50 mg PO DAILY 10/07/17 Pantoprazole Sodium [Protonix -] 40 mg PO DAILY 10/07/17 Paroxetine HCl [Paxil -] 30 mg PO DAILY 10/07/17 Pregabalin [Lyrica -] 50 mg PO BID 10/07/17 Sotalol HCl [Betapace -] 80 mg PO BID 10/07/17 Tamsulosin HCl [Flomax] 0.4 mg PO DAILY 10/07/17 Valacyclovir HCl [Valtrex -] 500 mg PO DAILY 10/07/17 Family Disease History - Family Disease History Family History: Unremarkable Review of Systems - Review of Systems Constitutional: reports: Lethargy, Loss of Appetite, Malaise Eyes: denies: Blind Spots, Double Vision HENT: denies: Ear Discharge, Gingival Bleeding Neck: denies: Decreased ROM, Lumps Cardiovascular: denies: Chest Pain, Edema Respiratory: denies: Cough, Exercise Intolerance Gastrointestinal: denies: Abdominal Pain, Bloating Genitourinary: denies: Burning, Discharge Musculoskeletal: reports: Back Pain, Joint Pain (Rt Hip) Integumentary: reports: Bruising Neurological: reports: Change in LOC Endocrine: denies: Excessive Sweating, Flushing Hematology/Lymphatic: reports: Easily Bruised Pain Intensity: 4 Physical Examination Vital Signs: Vital Signs Temperature 97.6 F 10/08/17 07:05 Pulse Rate 72 10/08/17 07:05 Respiratory Rate 18 10/08/17 00:55 Blood Pressure 127/74 10/08/17 07:05 O2 Sat by Pulse Oximetry (%) 99 10/08/17 07:05 Elderly sick looking male c/o pain HEENT: Mm dry, RT eye Ocluder Rt facial droop at base line NECK Supple, No JVd No Bruit CHEST: CTA B/L CVS: S1S2 R no m/g/r ABD: No distention, non tender Bs + EXT: Rt LE shorted , external rotated, unable to move Rt LE BEEF BONER: Alert butc confused grossly non focal DERM; Multiple echymoses Labs: CBC, BMP 10/07/17 16:30 10/08/17 06:27 Imaging - Results Chest X-ray: Report Reviewed (No Fracture no pathology dtected) X-ray: Report Reviewed (Pelvis: Rt Femur Intertrochanteric fracture with bony lesions, Rt Sup Pubic rami fracture Left Ankle: No Frcture. Left Tibia; No Fracture Left Tibia; No frcature.) Cat Scan: Report Reviewed (Head; no acute changes) EKG: Report Reviewed (HR 74 NSR PR184 QTC 532, no acute St T chnages) Problem List - Problems (1) Pathological fracture, right femur, initial encounter for fracture Assessment/Plan: Bed rest no Wt bearing, Pian control, Foleys cathter, Ortho Consult. Code(s): M84.451A - PATHOLOGICAL FRACTURE, RIGHT FEMUR, INIT ENCNTR FOR FRACTURE (2) Syncope and collapse Assessment/Plan: Most Likely Neuro Cardiogenic or orthostatic ,IV Hydration Telemonitoring, ECHO Code(s): R55 - SYNCOPE AND COLLAPSE (3) HTN (hypertension) Assessment/Plan: Well controlled cont all home meds Code(s): I10 - ESSENTIAL (PRIMARY) HYPERTENSION (4) Paroxysmal A-fib Assessment/Plan: In NsR and AC AC Hold for fracture and risk of bleeding will Hold Sotalol for low BP and QTC prolongation F/U Cardiology inputr Code(s): I48.0 - PAROXYSMAL ATRIAL FIBRILLATION (5) Elevated WBCs Assessment/Plan: Most Likely reactive no sourse of infection afebrile will observe off abx F/U Cultures Code(s): D72.829 - ELEVATED WHITE BLOOD CELL COUNT, UNSPECIFIED (6) Elevated lactic acid level Assessment/Plan: Most likely non infectios RpT level normal no sourse of infection, afebrile Code(s): R79.89 - OTHER SPECIFIED ABNORMAL FINDINGS OF BLOOD CHEMISTRY (7) Hypothyroidism Assessment/Plan: On Levothyroxine Code(s): E03.9 - HYPOTHYROIDISM, UNSPECIFIED Qualifiers: Hypothyroidism type: unspecified Qualified Code(s): E03.9 - Hypothyroidism , unspecified (8) Multiple myeloma Assessment/Plan: On Chemotherapy cont Home meds and Prophylactic Valcyclovir Code(s): C90.00 - MULTIPLE MYELOMA NOT HAVING ACHIEVED REMISSION (9) CHEPE (acute kidney injury) Assessment/Plan: Due to retention Bladder ultrasound IV Hydration and Foleys Cather insertion Code(s): N17.9 - ACUTE KIDNEY FAILURE, UNSPECIFIED (10) Pubic ramus fracture Assessment/Plan: Stable pain control Code(s): S32.599A - OTH FRACTURE OF UNSP PUBIS, INIT ENCNTR FOR CLOSED FRACTURE
[2017-10-08] MEDS ORDERED: MAGNESIUM SULF 50% (8.12 MEQ/2 ML-1 GM VIAL) IVPB ONE (14:14)
--- NOTE | 2017-10-08 14:19 | CON.CARD ---
Consult Consult Specialty:: Cardiology Referred by:: Dr. Hutchins Reason for Consultation:: Syncope - History of Present Illness Chief Complaint: Syncope History of Present Illness: Patient is a 77 year old male with underlying history of multiple myeloma with widespread spinal involvement with vertebral compression fractures, s/p multiple kyphoplasties and palliative radiation therapy and chemotherapy, melanoma and parotid cancer, PAF and PSVT, perforated viscus and pneumoperitoneum post exploratory laparotomy showing perforated bowel and purulent peritonitis requiring sigmoid resection, colostomy and abdominal washout, rt carotid CA s/p resection and RT. He presented after an episode of transient syncope after having BM, preceded by prodromal sxs of light-headedness, fell on right side without head trauma. now with right hip and thigh discomfort referable to right pathologic fracture referable to MM. He denies chest pain, palpitation, orthopnea, PND or LE edema. 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 No: Bronchitis (no chronic sputum production says current sputum production isnew) Renal/: Yes: BPH, Neurogenic Bladder, UTI, Other Infectious Disease: Yes: Other (fever possible aspiration pneumonia) ENT: Yes: Other (legally blind right eye) Dermatology: Yes: Melanoma - Alcohol/Substance Use Hx Alcohol Use: No - Smoking History Smoking history: Never smoked Have you smoked in the past 12 months: No Aproximately how many cigarettes per day: 0 - Social History ADL: Support Services History of Recent Travel: No Home Medications - Allergies Allergies/Adverse Reactions: Allergies Allergy/AdvReac Type Severity Reaction Status Date / Time No Known Drug Allergies Allergy Verified 10/07/17 15:43 - Home Medications Home Medications: Ambulatory Orders Amlodipine Besylate/Benazepril [Lotrel 5-10 mg Capsule] 5 - 20 mg PO DAILY 10/07 Apixaban [Eliquis -] 5 mg PO BID 10/07/17 Dexamethasone 4 mg PO WEEKLY 10/07/17 Lenalidomide [Revlimid] 15 mg PO DAILY 10/07/17 Levothyroxine [Synthroid -] 50 mcg PO DAILY 10/07/17 Metoprolol Succinate [Toprol Xl -] 50 mg PO DAILY 10/07/17 Pantoprazole Sodium [Protonix -] 40 mg PO DAILY 10/07/17 Paroxetine HCl [Paxil -] 30 mg PO DAILY 10/07/17 Pregabalin [Lyrica -] 50 mg PO BID 10/07/17 Sotalol HCl [Betapace -] 80 mg PO BID 10/07/17 Tamsulosin HCl [Flomax] 0.4 mg PO DAILY 10/07/17 Valacyclovir HCl [Valtrex -] 500 mg PO DAILY 10/07/17 Review of Systems - Review of Systems Musculoskeletal: reports: Joint Pain (Right hip pain) Neurological: reports: Dizziness Vital Signs: Vital Signs Temperature 97.6 F 10/08/17 07:05 Pulse Rate 72 10/08/17 07:05 Respiratory Rate 18 10/08/17 00:55 Blood Pressure 127/74 10/08/17 07:05 O2 Sat by Pulse Oximetry (%) 99 10/08/17 07:05 Constitutional: Yes: No Distress, Calm, Thin Neck: Yes: Supple Respiratory: Yes: Regular, Diminished Gastrointestinal: Yes: Normal Bowel Sounds, Soft Cardiovascular: Yes: Regular Rate and Rhythm JVD: No Carotid Bruit: No Heart Sounds: Yes: S1, S2 Murmur: Yes: Systolic Murmur, Grade 1 Edema: No - Other Data Labs, Other Data: CBC, BMP 10/07/17 16:30 10/08/17 06:27 INR, PTT INR 1.33 (0.82-1.09) H 10/08/17 06:27 Troponin, BNP 10/07/17 10/08/17 16:30 01:37 Troponin I Cancelled < 0.02 Troponin, BNP 10/07/17 10/08/17 16:30 01:37 Troponin I Cancelled < 0.02 NSR @ 77 prolonged QTc 504 msec Imaging - Results Chest X-ray: Report Reviewed (NAD) X-ray: Report Reviewed (Right femoral IT and superior pubic ramus fracture) Problem List - Problems (1) Pathological fracture, right femur, initial encounter for fracture Code(s): M84.451A - PATHOLOGICAL FRACTURE, RIGHT FEMUR, INIT ENCNTR FOR FRACTURE (2) HTN (hypertension) Code(s): I10 - ESSENTIAL (PRIMARY) HYPERTENSION Qualifiers: Hypertension type: essential hypertension Qualified Code(s): I10 - Essential (primary) hypertension (3) Multiple myeloma Code(s): C90.00 - MULTIPLE MYELOMA NOT HAVING ACHIEVED REMISSION Qualifiers: Multiple myeloma remission status: unspecified Qualified Code(s): C90.00 - Multiple myeloma not having achieved remission (4) PAF (paroxysmal atrial fibrillation) Code(s): I48.0 - PAROXYSMAL ATRIAL FIBRILLATION (5) PSVT (paroxysmal supraventricular tachycardia) Code(s): I47.1 - SUPRAVENTRICULAR TACHYCARDIA (6) Syncope Code(s): R55 - SYNCOPE AND COLLAPSE Qualifiers: Syncope type: vasovagal syncope Qualified Code(s): R55 - Syncope and collapse (7) Anticoagulant long-term use Code(s): Z79.01 - CUSTODIAL (CURRENT) USE OF ANTICOAGULANTS (8) Pre-operative cardiovascular examination Code(s): Z01.810 - ENCOUNTER FOR PREPROCEDURAL CARDIOVASCULAR EXAMINATION (9) Hypothyroidism Code(s): E03.9 - HYPOTHYROIDISM, UNSPECIFIED Qualifiers: Hypothyroidism type: unspecified Qualified Code(s): E03.9 - Hypothyroidism , unspecified Assessment/Plan 1. Recurrent syncope with orthostatic hypotension - suggestive of vasovagal/ neurocardiogenic, possible autonomic dysfunction and labile hypertension referable to XRT to right carotid sinus body 2. Pre-op CV evaluation for pathalogic fracture right proximal femur due to MM planned for right femur ORIF with a long IM/Gamma Nail 3. PAF currently in sinus rhythm with [id number] score of 3 on A/C with NOAC 4. PSVT currently in sinus rhythm 5. History of diverticular perforation with purulent peritonitis post exploratory laparotomy with sigmoid resection, end colostomy and abdominal washout 6. Non obstructive CAD, angina pectoris 7. HTN 8. History of multiple myeloma 9. 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 Anemia 11. Prolonged QTc 12. Hypothyroidism PLAN: 1. Follow orthostatic vital signs, consider upright tilt table testing as outpatient 2. Change Betapace 80 mg bid to Toprol XL 50 qd given prolonged QTc 3. Hold Eliquis 5 mg bid 2 days pre-op with resumption once post-op hemostasis has been achieved 4. Lotrel 5/10 held for now 5. Analgesia as needed, DVT prophylaxis 6. May proceed with ortho procedure given absence of acute coronary syndrome, decompensated CHF or malignant arrhythmia, recheck QTc 7. Thank you for consultative opportunity
[2017-10-08] MEDS ORDERED: DEXAMETHASONE 4 MG TABLET (FP) PO SCH (14:30)
[2017-10-08] MEDS ORDERED: MAGNESIUM SULF 50% (8.12 MEQ/2 ML-1 GM VIAL) ONE (14:54)
[2017-10-08] MEDS ORDERED: MAGNESIUM 1GM/D5W - 1 GM/100 ML IVPB IVPB ONE (15:00)
[2017-10-08 17:46] VITALS: BMI 25.8
[2017-10-08] MEDS: SODIUM CHLORIDE 1,000 ML IV SCH ×2 (18:20→21:06)
[2017-10-08 19:00] LABS: BASO % 0.2 % (0-2.0); EOS % 1.8 % (0-4.5); HEMATOCRIT 22.4 % (35.4-49); HEMOGLOBIN 7.4 GM/dL (11.7-16.9); LYMPH % 4.3 % (8-40); MCH 34.3 pg (25.7-33.7); MCHC 33.1 g/dl (32.0-35.9); MEAN CELL VOLUME 103.5 fl (80-96); MEAN PLT VOLUME 9.2 fl (7.5-11.1); MONO % 10.3 % (3.8-10.2); NEUT % 83.4 % (42.8-82.8); PLATELET COUNT 139 K/MM3 (134-434); RBC 2.17 M/mm3 (4.00-5.60); RDW 17.3 % (11.9-15.9); WHITE BLOOD COUNT 9.1 K/mm3 (4.0-10.0)
[2017-10-08 21:58] LABS: HEMATOCRIT 21.9 % (35.4-49); HEMOGLOBIN 7.3 GM/dL (11.7-16.9); MCH 34.4 pg (25.7-33.7); MCHC 33.2 g/dl (32.0-35.9); MEAN CELL VOLUME 103.8 fl (80-96); MEAN PLT VOLUME 8.9 fl (7.5-11.1); PLATELET COUNT 137 K/MM3 (134-434); RBC 2.11 M/mm3 (4.00-5.60); RDW 17.4 % (11.9-15.9); WHITE BLOOD COUNT 8.3 K/mm3 (4.0-10.0)
[2017-10-09] MEDS: HYDROmorphone HCL CARPU-JECT 2 MG/1 ML DISP.SYRIN IVPB PRN ×2 (02:27→20:46)
[2017-10-09] MEDS: LEVOTHYROXINE NA 50 MCG TABLET (FP) PO SCH (06:08)
--- NOTE | 2017-10-09 09:19 | PN ---
Progress Note (short form) - Note Progress Note: Pt seen and examined. AVSS H/H decreased to 7.3/21.9 He is being put on the OR schedule for surgery for Friday AM if cleared by medicine and cardiology. Imp Right femur pathologic fracture. Rec Right frmur IM jinny, long Gamma Nail when cleared. Put on the schedule for Friday NPO after midnight tonight I rec transfusion of 2 Units today pre op
--- NOTE | 2017-10-09 10:32 | EKG ---
Test Reason : Blood Pressure : / mmHG Vent. Rate : 076 BPM Atrial Rate : 076 BPM P-R Int : 194 ms QRS Dur : 084 ms QT Int : 412 ms P-R-T Axes : 026 025 071 degrees QTc Int : 463 ms NORMAL SINUS RHYTHM NORMAL ECG WHEN COMPARED WITH ECG OF 08-OCT-2017 21:57, NO SIGNIFICANT CHANGE WAS FOUND Confirmed by RAMO DEUTSCH MD ([id number]) on 10/09/2017 10:31:53 AM Referred By: Confirmed By:RAMO DEUTSCH MD
--- NOTE | 2017-10-09 10:33 | EKG ---
Test Reason : Blood Pressure : / mmHG Vent. Rate : 090 BPM Atrial Rate : 090 BPM P-R Int : 154 ms QRS Dur : 084 ms QT Int : 448 ms P-R-T Axes : 001 013 049 degrees QTc Int : 548 ms NORMAL SINUS RHYTHM NONSPECIFIC ST ABNORMALITY PROLONGED QT ABNORMAL ECG WHEN COMPARED WITH ECG OF 09-JAN-2017 17:31, QT HAS LENGTHENED Confirmed by RAMO DEUTSCH MD ([id number]) on 10/09/2017 10:33:06 AM Referred By: Confirmed By:RAMO DEUTSCH MD
--- NOTE | 2017-10-09 10:46 | PN ---
Progress Note (short form) - Note Progress Note: Patient seen and examined Events from overnight noted, was informed. ordered 2U PRBC. CT also ordered. report was reviewed overnight Today, pt feels tired and he is in pain. s/p one unit of PRBC overnight, waiting for the second one. O/E: Constitutional: Yes: Well Nourished, No Distress Eyes: Yes: Conjunctiva Clear HENT: Yes: Atraumatic Neck: Yes: Supple, Trachea Midline Cardiovascular: Yes: Regular Rate and Rhythm Respiratory: Yes: Regular Gastrointestinal: Yes: Normal Bowel Sounds, Soft Extremities: Yes: External Rotation, no echymosses noted. Edema: No Last Vital Signs Temp Pulse Resp BP Pulse Ox 98.4 F 75 20 150/76 92 L 10/09/17 06:54 10/09/17 06:54 10/09/17 06:54 10/09/17 06:54 10/09/17 02:00 CBC, BMP 10/08/17 21:00 10/08/17 06:27 Current Medications Generic Name Dose Route Start Last Admin Trade Name Freq PRN Reason Stop Dose Admin Dexamethasone 4 mg 10/08/17 14:30 Decadron - PO WEEKLY BERE Hydromorphone HCl 1 mg 10/07/17 20:22 10/09/17 02:27 Dilaudid Injection - IVPB 1 mg Q6H PRN Administration PAIN Sodium Chloride 1,000 mls @ 100 mls/hr 10/07/17 20:30 10/08/17 21:06 Normal Saline - IV 100 mls/hr ASDIR BERE Administration Sodium Chloride 1,000 mls @ 100 mls/hr 10/08/17 14:30 10/08/17 18:20 Normal Saline - IV 100 mls/hr ASDIR BERE Administration Levothyroxine Sodium 50 mcg 10/08/17 07:00 10/09/17 06:08 Synthroid - PO 50 mcg DAILY@0700 BERE Administration Metoprolol Succinate 50 mg 10/08/17 10:00 10/08/17 09:40 Toprol Xl - PO 50 mg DAILY BERE Administration Non-Formulary Medication 15 mg 10/08/17 10:00 Lenalidomide [Revlimid] PO DAILY BERE Ondansetron HCl 4 mg 10/07/17 20:22 Zofran Injection IVPUSH Q6H PRN NAUSEA Pantoprazole Sodium 40 mg 10/08/17 10:00 10/08/17 09:40 Protonix - PO 40 mg DAILY BERE Administration Paroxetine HCl 20 mg/ 30 mg 10/09/17 10:00 Paroxetine HCl 10 mg PO DAILY BERE Pregabalin 50 mg 10/08/17 10:00 10/08/17 21:04 Lyrica - PO 50 mg BID BERE Administration Valacyclovir HCl 500 mg 10/08/17 10:00 10/08/17 09:40 Valtrex - PO 500 mg DAILY BERE Administration Fracture s/p fall: -for ORIF -CT reviewed, hematoma at the site, PRBC ordered s/p one unit Multiple Myeloma with extensive bony and spine involvement. -on RVD -revlimind at home., asked family to bring it today and then he could start taking it. pAF -on eliquis as an OP. -on hold pre-procedural and also with hematoma noted in CT scan Leucocytosis resolved likely reactive HyperNa/CHEPE: -on gentle hydration labs post transfusion ordered will follow
[2017-10-09] MEDS: PAROXETINE HCL 20 MG, PAROXETINE HCL 10 MG PO SCH (11:26)
[2017-10-09] MEDS: valACYclovir HCL 500 MG TABLET (FP) PO SCH (11:26)
[2017-10-09] MEDS: PREGABALIN 50 MG CAPSULE PO SCH ×2 (11:26→22:00)
[2017-10-09] MEDS: PANTOPRAZOLE 40 MG TABLET (FP) PO SCH (11:27)
--- NOTE | 2017-10-09 12:13 | PN ---
Progress Note, Physician History of Present Illness: No further near or true syncope, continued right hip and thigh discomfort referable to right pathologic fracture referable to MM. He denies chest pain, palpitation, orthopnea, PND or LE edema. Episode of asymptomatic self-limited PAF, currently in SR. QTc has improved off sotalol. - Current Medication List Current Medications: Active Medications Dexamethasone (Decadron -) 4 mg PO WEEKLY ON LICENSE OF [facility] Hydromorphone HCl (Dilaudid Injection -) 1 mg IVPB Q6H PRN PRN Reason: PAIN Last Admin: 10/09/17 02:27 Dose: 1 mg Sodium Chloride (Normal Saline -) 1,000 mls @ 100 mls/hr IV ASDIR ON LICENSE OF [facility] Last Admin: 10/08/17 21:06 Dose: 100 mls/hr Sodium Chloride (Normal Saline -) 1,000 mls @ 100 mls/hr IV ASDIR ON LICENSE OF [facility] Last Admin: 10/08/17 18:20 Dose: 100 mls/hr Levothyroxine Sodium (Synthroid -) 50 mcg PO DAILY@0700 ON LICENSE OF [facility] Last Admin: 10/09/17 06:08 Dose: 50 mcg Metoprolol Succinate (Toprol Xl -) 50 mg PO DAILY ON LICENSE OF [facility] Last Admin: 10/08/17 09:40 Dose: 50 mg Non-Formulary Medication (Lenalidomide [Revlimid]) 15 mg PO DAILY ON LICENSE OF [facility] Ondansetron HCl (Zofran Injection) 4 mg IVPUSH Q6H PRN PRN Reason: NAUSEA Pantoprazole Sodium (Protonix -) 40 mg PO DAILY ON LICENSE OF [facility] Last Admin: 10/09/17 11:27 Dose: 40 mg Paroxetine HCl 20 mg/ (Paroxetine HCl 10 mg) 30 mg PO DAILY ON LICENSE OF [facility] Last Admin: 10/09/17 11:26 Dose: 30 mg Pregabalin (Lyrica -) 50 mg PO BID ON LICENSE OF [facility] Last Admin: 10/09/17 11:26 Dose: 50 mg Valacyclovir HCl (Valtrex -) 500 mg PO DAILY ON LICENSE OF [facility] Last Admin: 10/09/17 11: Dose: 500 mg - Objective Vital Signs: Vital Signs Temperature 99.8 F H 10/09/17 10:00 Pulse Rate 80 10/09/17 10:00 Respiratory Rate 18 10/09/17 10:00 Blood Pressure 140/58 10/09/17 10:00 O2 Sat by Pulse Oximetry (%) 92 L 10/09/17 02:00 Constitutional: Yes: No Distress, Calm, Thin Neck: Yes: Supple Cardiovascular: Yes: Regular Rate and Rhythm Respiratory: Yes: Regular, Diminished, On Nasal O2 Gastrointestinal: Yes: Normal Bowel Sounds, Soft Extremities: Yes: External Rotation, Shortened (RLE) Edema: No Labs: CBC, BMP 10/08/17 21:00 10/08/17 06:27 INR, PTT INR 1.33 (0.82-1.09) H 10/08/17 06:27 - ....Imaging EKG: Report Reviewed (NSR @ 76 QTc 463 msec Tele: 14 beats PAF->SR) Problem List - Problems (1) Pathological fracture, right femur, initial encounter for fracture Code(s): M84.451A - PATHOLOGICAL FRACTURE, RIGHT FEMUR, INIT ENCNTR FOR FRACTURE (2) HTN (hypertension) Code(s): I10 - ESSENTIAL (PRIMARY) HYPERTENSION Qualifiers: Hypertension type: essential hypertension Qualified Code(s): I10 - Essential (primary) hypertension (3) Multiple myeloma Code(s): C90.00 - MULTIPLE MYELOMA NOT HAVING ACHIEVED REMISSION Qualifiers: Multiple myeloma remission status: unspecified Qualified Code(s): C90.00 - Multiple myeloma not having achieved remission (4) PAF (paroxysmal atrial fibrillation) Code(s): I48.0 - PAROXYSMAL ATRIAL FIBRILLATION (5) PSVT (paroxysmal supraventricular tachycardia) Code(s): I47.1 - SUPRAVENTRICULAR TACHYCARDIA (6) Syncope Code(s): R55 - SYNCOPE AND COLLAPSE Qualifiers: Syncope type: vasovagal syncope Qualified Code(s): R55 - Syncope and collapse (7) Anticoagulant long-term use Code(s): Z79.01 - PRISON (CURRENT) USE OF ANTICOAGULANTS (8) Pre-operative cardiovascular examination Code(s): Z01.810 - ENCOUNTER FOR PREPROCEDURAL CARDIOVASCULAR EXAMINATION (9) Hypothyroidism Code(s): E03.9 - HYPOTHYROIDISM, UNSPECIFIED Qualifiers: Hypothyroidism type: unspecified Qualified Code(s): E03.9 - Hypothyroidism , unspecified (10) Pelvic hematoma, male Code(s): N50.1 - VASCULAR DISORDERS OF MALE GENITAL ORGANS (11) Femur fracture Code(s): S72.90XA - UNSP FRACTURE OF UNSP FEMUR, INIT ENCNTR FOR CLOSED FRACTURE Qualifiers: Encounter type: subsequent encounter Assessment/Plan 1. Recurrent syncope with orthostatic hypotension - suggestive of vasovagal/ neurocardiogenic, possible autonomic dysfunction and labile hypertension referable to XRT to right carotid sinus body 2. Pre-op CV evaluation for pathologic fracture right proximal femur due to MM with hematoma planned for right femur ORIF with a long IM/Gamma Nail 3. PAF currently in sinus rhythm with [id number] score of 3 on A/C with NOAC 4. PSVT currently in sinus rhythm 5. History of diverticular perforation with purulent peritonitis post exploratory laparotomy with sigmoid resection, end colostomy and abdominal washout 6. Non obstructive CAD, angina pectoris 7. HTN 8. History of multiple myeloma 9. 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 Anemia post transfusion 11. Prolonged QTc resolved off sotalol 12. Hypothyroidism 13. CHEPE referable to hemodynamic alterations PLAN: 1. Monitor Hgb and transfuse as needed 2. Continue Toprol XL 50 qd and off Sotalol given prolonged QTc now resolved 3. Hold Eliquis 5 mg bid 2 days pre-op with resumption once post-op hemostasis has been achieved 4. Lotrel 5/10 held for now 5. Analgesia as needed, DVT prophylaxis 6. May proceed with ortho procedure given absence of acute coronary syndrome, decompensated CHF or malignant arrhythmia
[2017-10-09] MEDS: METOPROLOL SUCCINATE 50 MG TAB.SR.24H (FP) PO SCH (12:45)
--- NOTE | 2017-10-09 13:20 | PN ---
Progress Note, Physician Chief Complaint: Feels improved drop in H/H but stable Ct shows pelvic Hemtaoma - Current Medication List Current Medications: Active Medications Dexamethasone (Decadron -) 4 mg PO WEEKLY [facility] Hydromorphone HCl (Dilaudid Injection -) 1 mg IVPB Q6H PRN PRN Reason: PAIN Last Admin: 10/09/17 02:27 Dose: 1 mg Sodium Chloride (Normal Saline -) 1,000 mls @ 100 mls/hr IV ASDIR [facility] Last Admin: 10/08/17 21:06 Dose: 100 mls/hr Sodium Chloride (Normal Saline -) 1,000 mls @ 100 mls/hr IV ASDIR [facility] Last Admin: 10/08/17 18:20 Dose: 100 mls/hr Levothyroxine Sodium (Synthroid -) 50 mcg PO DAILY@0700 [facility] Last Admin: 10/09/17 06:08 Dose: 50 mcg Metoprolol Succinate (Toprol Xl -) 50 mg PO DAILY [facility] Last Admin: 10/09/17 12:45 Dose: 50 mg Non-Formulary Medication (Lenalidomide [Revlimid]) 15 mg PO DAILY [facility] Ondansetron HCl (Zofran Injection) 4 mg IVPUSH Q6H PRN PRN Reason: NAUSEA Pantoprazole Sodium (Protonix -) 40 mg PO DAILY [facility] Last Admin: 10/09/17 11:27 Dose: 40 mg Paroxetine HCl 20 mg/ (Paroxetine HCl 10 mg) 30 mg PO DAILY [facility] Last Admin: 10/09/17 11:26 Dose: 30 mg Pregabalin (Lyrica -) 50 mg PO BID [facility] Last Admin: 10/09/17 11:26 Dose: 50 mg Valacyclovir HCl (Valtrex -) 500 mg PO DAILY [facility] Last Admin: 10/09/17 11:26 Dose: 500 mg - Objective Vital Signs: Vital Signs Temperature 99.8 F H 10/09/17 10:00 Pulse Rate 80 10/09/17 10:00 Respiratory Rate 18 10/09/17 10:00 Blood Pressure 140/58 10/09/17 10:00 O2 Sat by Pulse Oximetry (%) 92 L 10/09/17 02:00 Elderly not in distress c/o pain HEENT: Mm dry, RT eye s/p surgery Rt facial droop at base line NECK Supple, No JVd No Bruit CHEST: CTA B/L CVS: S1S2 R no m/g/r ABD: No distention, non tender Bs + EXT: Rt LE shorted , external rotated, unable to move Rt LE CLOTH TESTER QUALITY: Alert butc confused grossly non focal DERM; Multiple echymoses Labs: CBC, BMP 10/08/17 21:00 10/08/17 06:27 INR, PTT INR 1.33 (0.82-1.09) H 10/08/17 06:27 Problem List - Problems (1) Pathological fracture, right femur, initial encounter for fracture Assessment/Plan: Bed rest no Wt bearing, Pian control, Foleys cathter, Ortho Consult. Code(s): M84.451A - PATHOLOGICAL FRACTURE, RIGHT FEMUR, INIT ENCNTR FOR FRACTURE (2) Syncope and collapse Assessment/Plan: Most Likely Neuro Cardiogenic or orthostatic ,IV Hydration Telemonitoring, ECHO Code(s): R55 - SYNCOPE AND COLLAPSE (3) HTN (hypertension) Assessment/Plan: Well controlled cont all home meds Code(s): I10 - ESSENTIAL (PRIMARY) HYPERTENSION (4) Paroxysmal A-fib Assessment/Plan: In NsR and AC AC Hold for fracture and risk of bleeding will Hold Sotalol for low BP and QTC prolongation F/U Cardiology inputr Code(s): I48.0 - PAROXYSMAL ATRIAL FIBRILLATION (5) Elevated WBCs Assessment/Plan: Most Likely reactive no sourse of infection afebrile will observe off abx F/U Cultures Code(s): D72.829 - ELEVATED WHITE BLOOD CELL COUNT, UNSPECIFIED (6) Elevated lactic acid level Assessment/Plan: Most likely non infectios RpT level normal no sourse of infection, afebrile Code(s): R79.89 - OTHER SPECIFIED ABNORMAL FINDINGS OF BLOOD CHEMISTRY (7) Hypothyroidism Assessment/Plan: On Levothyroxine Code(s): E03.9 - HYPOTHYROIDISM, UNSPECIFIED Qualifiers: Hypothyroidism type: unspecified Qualified Code(s): E03.9 - Hypothyroidism , unspecified (8) Multiple myeloma Assessment/Plan: On Chemotherapy cont Home meds and Prophylactic Valcyclovir Code(s): C90.00 - MULTIPLE MYELOMA NOT HAVING ACHIEVED REMISSION (9) CHEPE (acute kidney injury) Assessment/Plan: Due to retention Bladder ultrasound IV Hydration and Foleys Cather insertion F /U BMP Code(s): N17.9 - ACUTE KIDNEY FAILURE, UNSPECIFIED (10) Pubic ramus fracture Assessment/Plan: Stable pain control Code(s): S32.599A - OTH FRACTURE OF UNSP PUBIS, INIT ENCNTR FOR CLOSED FRACTURE (11) Anemia, posthemorrhagic, acute Assessment/Plan: Drop in H/H Ct abd shows pelvic Hematoma , oncology planned blood transfusion Hb 7.3 H/H is low but stablestable Code(s): D62 - ACUTE POSTHEMORRHAGIC ANEMIA
[2017-10-09] MEDS: SODIUM CHLORIDE 1,000 ML IV SCH ×2 (15:00→20:48)
[2017-10-09 17:04] LABS: BASO % 0.1 % (0-2.0); EOS % 1.2 % (0-4.5); HEMATOCRIT 26.5 % (35.4-49); HEMOGLOBIN 8.7 GM/dL (11.7-16.9); LYMPH % 4.1 % (8-40); MCH 32.5 pg (25.7-33.7); MCHC 32.9 g/dl (32.0-35.9); MEAN CELL VOLUME 98.6 fl (80-96); MEAN PLT VOLUME 9.3 fl (7.5-11.1); MONO % 9.2 % (3.8-10.2); NEUT % 85.4 % (42.8-82.8); PLATELET COUNT 128 K/MM3 (134-434); RBC 2.69 M/mm3 (4.00-5.60); RDW 19.8 % (11.9-15.9); WHITE BLOOD COUNT 9.6 K/mm3 (4.0-10.0)
[2017-10-09] MEDS: CEFAZOLIN 1 GM PUSH 1 GM/10 ML DISP.SYRIN IVPUSH SCH (17:55)
[2017-10-09 18:07] LABS: ALBUMIN 2.1 g/dl (3.4-5.0); ANION GAP 7 (8-16); BLOOD UREA NITROGEN 26 mg/dL (7-18); CALCIUM 7.2 mg/dL (8.5-10.1); CHLORIDE 109 mmol/L (98-107); CO2 30 mmol/L (21-32); CREATININE 0.7 mg/dL (0.7-1.3); GLUCOSE,RANDOM 108 mg/dL (74-106); POTASSIUM 3.4 mmol/L (3.5-5.1); SGOT/AST 19 U/L (15-37); SGPT/ALT 21 U/L (12-78); SODIUM 146 mmol/L (136-145)
[2017-10-09 18:09] LABS: ALK PHOS 51 U/L (45-117); TOT PROT 5.3 g/dl (6.4-8.2)
[2017-10-09] MEDS: LENALIDOMIDE PO SCH (22:00)
[2017-10-09] MEDS ORDERED: PT OWN MED DRAWER 7, Y5N ONE (22:11)
[2017-10-10] MEDS: CEFAZOLIN 1 GM PUSH 1 GM/10 ML DISP.SYRIN IVPUSH SCH ×2 (01:54→09:22)
[2017-10-10] MEDS: LEVOTHYROXINE NA 50 MCG TABLET (FP) PO SCH (06:04)
[2017-10-10] MEDS: HYDROmorphone HCL CARPU-JECT 2 MG/1 ML DISP.SYRIN IVPB PRN ×2 (06:04→20:05)
[2017-10-10] MEDS: SODIUM CHLORIDE 1,000 ML IV SCH ×2 (06:11→15:16)
[2017-10-10 08:24] LABS: EOS % 1.7 % (0-4.5); HEMATOCRIT 25.4 % (35.4-49); HEMOGLOBIN 8.4 GM/dL (11.7-16.9); LYMPH % 3.7 % (8-40); MCH 32.5 pg (25.7-33.7); MEAN CELL VOLUME 98.5 fl (80-96); MEAN PLT VOLUME 8.7 fl (7.5-11.1); MONO % 9.8 % (3.8-10.2); NEUT % 84.8 % (42.8-82.8); PLATELET COUNT 106 K/MM3 (134-434); RBC 2.58 M/mm3 (4.00-5.60); RDW 20.5 % (11.9-15.9); WHITE BLOOD COUNT 10.2 K/mm3 (4.0-10.0)
[2017-10-10 08:29] LABS: CHLORIDE 111 mmol/L (98-107); POTASSIUM 3.5 mmol/L (3.5-5.1); SODIUM 148 mmol/L (136-145)
[2017-10-10 08:42] LABS: ALK PHOS 48 U/L (45-117); ANION GAP 7 (8-16); BILIRUBIN,TOTAL 1.1 mg/dL (0.2-1.0); BLOOD UREA NITROGEN 21 mg/dL (7-18); CALCIUM 7.8 mg/dL (8.5-10.1); CO2 30 mmol/L (21-32); CREATININE 0.6 mg/dL (0.7-1.3); GLUCOSE,RANDOM 97 mg/dL (74-106); SGOT/AST 16 U/L (15-37); SGPT/ALT 18 U/L (12-78); TOT PROT 5.5 g/dl (6.4-8.2)
[2017-10-10] MEDS: LENALIDOMIDE PO SCH (09:20)
[2017-10-10] MEDS: PREGABALIN 50 MG CAPSULE PO SCH ×2 (09:21→21:00)
[2017-10-10] MEDS: METOPROLOL SUCCINATE 50 MG TAB.SR.24H (FP) PO SCH (09:21)
[2017-10-10] MEDS: valACYclovir HCL 500 MG TABLET (FP) PO SCH (09:21)
[2017-10-10] MEDS: PANTOPRAZOLE 40 MG TABLET (FP) PO SCH (09:21)
[2017-10-10] MEDS: PAROXETINE HCL 20 MG, PAROXETINE HCL 10 MG PO SCH (09:22)
[2017-10-10] MEDS ORDERED: PROPOFOL 20 ML ONE (12:13)
[2017-10-10] MEDS ORDERED: ceFAZolin SODIUM 1 GM VIAL ONE ×2 (12:35)
--- NOTE | 2017-10-10 13:21 | OP ---
Operative Note - Note: Operative Date: 10/10/17 ([facility]) Pre-Operative Diagnosis: right pathologic IT fx Operation: right long IM gamma nail Post-Operative Diagnosis: Same as Pre-op Surgeon: Rio Mendoza Graphics Artist: Rahul Young Anesthesiologist/SPECIAL EFFECTS DESIGNER: Stefanie Woodall Anesthesia: General Estimated Blood Loss (mls): 100 Operative Report Dictated: Yes
[2017-10-10] MEDS ORDERED: ACETAMINOPHEN 1000 MG/100 ML VIAL (NON FORMULARY) IVPB ONE (13:34)
[2017-10-10] MEDS ORDERED: ONDANSETRON 4 MG/2 ML VIAL IVPUSH PRN (13:59)
[2017-10-10] MEDS ORDERED: SODIUM CHLORIDE 1,000 ML IV SCH (13:59)
--- NOTE | 2017-10-10 14:41 | PN ---
Progress Note, Physician Chief Complaint: Pat c/o less pain denies any SOB or chest pain awaiting surgery at 12.00 noon - Current Medication List Current Medications: Active Medications Acetaminophen (Ofirmev Injection -) 1,000 mg IVPB ONCE ONE Stop: 10/10/17 13:35 Last Admin: 10/10/17 14:00 Dose: 1,000 mg Dexamethasone (Decadron -) 4 mg PO WEEKLY [facility] Enoxaparin Sodium (Lovenox -) 40 mg SQ DAILY [facility] Fentanyl (Sublimaze Injection -) 50 mcg IVPUSH [id number] PRN PRN Reason: PAIN-PACU ORDER X 4 DOSES ONLY Last Admin: 10/10/17 14:15 Dose: 50 mcg Hydromorphone HCl (Dilaudid Injection -) 1 mg IVPB Q6H PRN PRN Reason: PAIN Cefazolin Sodium 2 gm/ (Dextrose) 50 mls @ 200 mls/hr IVPB Q8H-IV [facility] Stop: 10/11/17 02:14 Cefazolin Sodium (Ancef -) 1 gm in 10 mls @ 120 mls/hr IVPUSH Q8H-IV [facility] Sodium Chloride (Normal Saline -) 1,000 mls @ 100 mls/hr IV ASDIR [facility] Sodium Chloride (Normal Saline -) 1,000 mls @ 100 mls/hr IV ASDIR [facility] Levothyroxine Sodium (Synthroid -) 50 mcg PO DAILY@0700 [facility] Metoprolol Succinate (Toprol Xl -) 50 mg PO DAILY [facility] Non-Formulary Medication (Lenalidomide [Revlimid]) 15 mg PO DAILY [facility] Ondansetron HCl (Zofran Injection) 4 mg IVPUSH Q6H PRN PRN Reason: NAUSEA Pantoprazole Sodium (Protonix -) 40 mg PO DAILY [facility] Paroxetine HCl 20 mg/ (Paroxetine HCl 10 mg) 30 mg PO DAILY [facility] Pregabalin (Lyrica -) 50 mg PO BID [facility] Valacyclovir HCl (Valtrex -) 500 mg PO DAILY [facility] - Objective Vital Signs: Vital Signs Temperature 99.2 F 10/10/17 13:20 Pulse Rate 81 10/10/17 13:20 Respiratory Rate 12 10/10/17 13:20 Blood Pressure 150/86 10/10/17 13:20 O2 Sat by Pulse Oximetry (%) 92 L 10/10/17 13:20 Comfortable not in distress HEENT: Mm moist, RT eye Ocluder Rt facial droop at base line NECK Supple, No JVd No Bruit CHEST: CTA B/L CVS: S1S2 R no m/g/r ABD: No distention, non tender Bs + EXT: Rt LE shorted , external rotated, unable to move Rt LE BRIMMER BLOCKER: AOX3 non focal no interval changes DERM; Multiple echymoses Labs: CBC, BMP 10/10/17 07:24 10/10/17 07:24 INR, PTT INR 1.33 (0.82-1.09) H 10/08/17 06:27 Problem List - Problems (1) Pathological fracture, right femur, initial encounter for fracture Assessment/Plan: Bed rest no Wt bearing, pain control schedule for surgery. Code(s): M84.451A - PATHOLOGICAL FRACTURE, RIGHT FEMUR, INIT ENCNTR FOR FRACTURE (2) Syncope and collapse Assessment/Plan: Most Likely Neuro Cardiogenic or orthostatic ,IV Hydration Telemonitoring, ECHO Code(s): R55 - SYNCOPE AND COLLAPSE (3) HTN (hypertension) Assessment/Plan: Well controlled cont all home meds Code(s): I10 - ESSENTIAL (PRIMARY) HYPERTENSION (4) Paroxysmal A-fib Assessment/Plan: In NsR and AC AC Hold for fracture and risk of bleeding will Hold Sotalol for low BP and QTC prolongation F/U Cardiology inputr Code(s): I48.0 - PAROXYSMAL ATRIAL FIBRILLATION (5) Elevated lactic acid level Code(s): R79.89 - OTHER SPECIFIED ABNORMAL FINDINGS OF BLOOD CHEMISTRY (6) Hypothyroidism Code(s): E03.9 - HYPOTHYROIDISM, UNSPECIFIED Qualifiers: Hypothyroidism type: unspecified Qualified Code(s): E03.9 - Hypothyroidism , unspecified (7) Multiple myeloma Assessment/Plan: On Chemotherapy cont Home meds and Prophylactic Valcyclovir Code(s): C90.00 - MULTIPLE MYELOMA NOT HAVING ACHIEVED REMISSION (8) CHEPE (acute kidney injury) Assessment/Plan: Resolved P Code(s): N17.9 - ACUTE KIDNEY FAILURE, UNSPECIFIED (9) Pubic ramus fracture Assessment/Plan: Stable pain control Code(s): S32.599A - OTH FRACTURE OF UNSP PUBIS, INIT ENCNTR FOR CLOSED FRACTURE (10) Anemia, posthemorrhagic, acute Assessment/Plan: Drop in H/H Ct abd shows pelvic Hematoma , oncology planned blood transfusion Hb 7.3 H/H is low but stablestable Code(s): D62 - ACUTE POSTHEMORRHAGIC ANEMIA
--- NOTE | 2017-10-10 16:12 | PN ---
Progress Note (short form) - Note Progress Note: Patient seen and examined S/P IM gamma nail for pathologic fracture of right femur. Last Vital Signs Temp Pulse Resp BP Pulse Ox 98.5 F 76 19 145/74 95 10/10/17 15:40 10/10/17 15:40 10/10/17 15:40 10/10/17 15:40 10/10/17 15:05 HEENT: right eye patch Oropharynx: No thrush, right facial Nodes: Without adenopathy, fibrosis of neck area on right,s/p RT Cor: RSR, No murmurs, No gallops Lungs: diminished breath sounds Abd: Soft, Normal bowel sounds, No organomegaly, functioning colostomy spann catheter Ext:s/p right hip surgical repair swelling right hip Skin: numerous ecchymoses CBC, BMP 10/10/17 07:24 10/10/17 07:24 Current Medications Generic Name Dose Route Start Last Admin Trade Name Freq PRN Reason Stop Dose Admin Dexamethasone 4 mg 10/10/17 13:59 Decadron - PO WEEKLY [facility] Enoxaparin Sodium 40 mg 10/11/17 10:00 Lovenox - SQ DAILY [facility] Fentanyl 50 mcg 10/10/17 13:34 10/10/17 14:40 Sublimaze Injection - IVPUSH 25 mcg [id number] PRN Administration PAIN-PACU ORDER X 4 DOSES ONLY Hydromorphone HCl 1 mg 10/10/17 13:59 Dilaudid Injection - IVPB Q6H PRN PAIN Cefazolin Sodium/Dextrose 2 gm in 50 mls @ 200 mls/hr 10/10/17 20:30 Ancef 2 Gm Premixed Ivpb - IVPB 10/11/17 04:44 0430,2030 [facility] Cefazolin Sodium 1 gm in 10 mls @ 120 mls/hr 10/11/17 10:00 Ancef - IVPUSH Q8H-IV [facility] Sodium Chloride 1,000 mls @ 100 mls/hr 10/10/17 13:59 10/10/17 15:16 Normal Saline - IV 100 mls/hr ASDIR BERE Administration Levothyroxine Sodium 50 mcg 10/11/17 07:00 Synthroid - PO DAILY@0700 [facility] Metoprolol Succinate 50 mg 10/11/17 10:00 Toprol Xl - PO DAILY [facility] Non-Formulary Medication 15 mg 10/11/17 10:00 Lenalidomide [Revlimid] PO DAILY [facility] Ondansetron HCl 4 mg 10/10/17 13:59 Zofran Injection IVPUSH Q6H PRN NAUSEA Pantoprazole Sodium 40 mg 10/11/17 10:00 Protonix - PO DAILY [facility] Paroxetine HCl 20 mg/ 30 mg 10/11/17 10:00 Paroxetine HCl 10 mg PO DAILY [facility] Pregabalin 50 mg 10/10/17 22:00 Lyrica - PO BID [facility] Valacyclovir HCl 500 mg 10/11/17 10:00 Valtrex - PO DAILY [facility] Impression: Multiple myeloma - not in remission s/p IM gamma nail repair of pathologic femur fx anemia thrombocytopenia Right femur hematoma s/p transfusion of packed cells. Plan: Continue current revlimid dose monitor cbc high thrombogenic risk - surgery, malignancy, bedrest,revlimid--mobilize early and anticoagulation with monitoring
--- NOTE | 2017-10-10 19:23 | PN ---
Progress Note, Physician History of Present Illness: No further near or true syncope, s/p right long IM gamma nail. He denies chest pain, palpitation, orthopnea, PND or LE edema. Episodes of self-limited rapid PAF->SR. QTc has improved off sotalol. - Current Medication List Current Medications: Active Medications Dexamethasone (Decadron -) 4 mg PO WEEKLY [facility] Enoxaparin Sodium (Lovenox -) 40 mg SQ DAILY [facility] Fentanyl (Sublimaze Injection -) 50 mcg IVPUSH [id number] PRN PRN Reason: PAIN-PACU ORDER X 4 DOSES ONLY Last Admin: 10/10/17 14:40 Dose: 25 mcg Hydromorphone HCl (Dilaudid Injection -) 1 mg IVPB Q6H PRN PRN Reason: PAIN Cefazolin Sodium/Dextrose (Ancef 2 Gm Premixed Ivpb -) 2 gm in 50 mls @ 200 mls /hr IVPB 0430,2030 [facility] Stop: 10/11/17 04:44 Cefazolin Sodium (Ancef -) 1 gm in 10 mls @ 120 mls/hr IVPUSH Q8H-IV [facility] Sodium Chloride (Normal Saline -) 1,000 mls @ 100 mls/hr IV ASDIR [facility] Last Admin: 10/10/17 15:16 Dose: 100 mls/hr Levothyroxine Sodium (Synthroid -) 50 mcg PO DAILY@0700 [facility] Metoprolol Succinate (Toprol Xl -) 50 mg PO DAILY [facility] Non-Formulary Medication (Lenalidomide [Revlimid]) 15 mg PO DAILY [facility] Ondansetron HCl (Zofran Injection) 4 mg IVPUSH Q6H PRN PRN Reason: NAUSEA Pantoprazole Sodium (Protonix -) 40 mg PO DAILY [facility] Paroxetine HCl 20 mg/ (Paroxetine HCl 10 mg) 30 mg PO DAILY [facility] Pregabalin (Lyrica -) 50 mg PO BID [facility] Valacyclovir HCl (Valtrex -) 500 mg PO DAILY [facility] - Objective Vital Signs: Vital Signs Temperature 98 F 10/10/17 18:00 Pulse Rate 76 10/10/17 18:00 Respiratory Rate 18 10/10/17 18:00 Blood Pressure 139/69 10/10/17 18:00 O2 Sat by Pulse Oximetry (%) 95 10/10/17 15:05 Constitutional: Yes: No Distress, Calm, Thin Neck: Yes: Supple Cardiovascular: Yes: Regular Rate and Rhythm Respiratory: Yes: Regular, Diminished Gastrointestinal: Yes: Normal Bowel Sounds, Soft Edema: No Labs: CBC, BMP 10/10/17 07:24 10/10/17 07:24 INR, PTT INR 1.33 (0.82-1.09) H 10/08/17 06:27 - ....Imaging EKG: Report Reviewed (Tele: PAF->SR) Problem List - Problems (1) Pathological fracture, right femur, initial encounter for fracture Code(s): M84.451A - PATHOLOGICAL FRACTURE, RIGHT FEMUR, INIT ENCNTR FOR FRACTURE (2) HTN (hypertension) Code(s): I10 - ESSENTIAL (PRIMARY) HYPERTENSION Qualifiers: Hypertension type: essential hypertension Qualified Code(s): I10 - Essential (primary) hypertension (3) Multiple myeloma Code(s): C90.00 - MULTIPLE MYELOMA NOT HAVING ACHIEVED REMISSION Qualifiers: Multiple myeloma remission status: not in remission Qualified Code(s): C90.00 - Multiple myeloma not having achieved remission (4) PAF (paroxysmal atrial fibrillation) Code(s): I48.0 - PAROXYSMAL ATRIAL FIBRILLATION (5) PSVT (paroxysmal supraventricular tachycardia) Code(s): I47.1 - SUPRAVENTRICULAR TACHYCARDIA (6) Syncope Code(s): R55 - SYNCOPE AND COLLAPSE Qualifiers: Syncope type: vasovagal syncope Qualified Code(s): R55 - Syncope and collapse (7) Anticoagulant long-term use Code(s): Z79.01 - GROUP HOME (CURRENT) USE OF ANTICOAGULANTS (8) Pelvic hematoma, male Code(s): N50.1 - VASCULAR DISORDERS OF MALE GENITAL ORGANS (9) Femur fracture Code(s): S72.90XA - UNSP FRACTURE OF UNSP FEMUR, INIT ENCNTR FOR CLOSED FRACTURE Qualifiers: Encounter type: subsequent encounter Assessment/Plan 1. Recurrent syncope with orthostatic hypotension - suggestive of vasovagal/ neurocardiogenic, possible autonomic dysfunction and labile hypertension referable to XRT to right carotid sinus body 2. s/p right long IM gamma nail for pathologic fracture right proximal femur due to MM with hematoma 3. PAF currently in sinus rhythm with [id number] score of 3 on A/C with NOAC 4. PSVT currently in sinus rhythm 5. History of diverticular perforation with purulent peritonitis post exploratory laparotomy with sigmoid resection, end colostomy and abdominal washout 6. Non obstructive CAD, angina pectoris 7. HTN 8. History of multiple myeloma 9. 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 Anemia post transfusion 11. Prolonged QTc resolved off sotalol 12. Hypothyroidism 13. CHEPE referable to hemodynamic alterations resolved PLAN: 1. Monitor Hgb and transfuse as needed, Revlimid 2. Continue Toprol XL 50 qd and off Sotalol given prolonged QTc since resolved 3. Resume Eliquis 5 mg bid post-op once hemostasis has been achieved 4. Lotrel 5/10 held for now 5. Analgesia as needed, DVT prophylaxis
[2017-10-10] MEDS ORDERED: CEFAZOLIN 2 GM in DEXTROSE 5%-WATER - 50 ML IVPB SCH (20:30)
[2017-10-10] MEDS: CEFAZOLIN 2 GM/D5W 2 GM/50 ML ML IVPB SCH (21:01)
[2017-10-11] MEDS: HYDROmorphone HCL CARPU-JECT 2 MG/1 ML DISP.SYRIN IVPB PRN ×4 (03:06→21:11)
[2017-10-11] MEDS: CEFAZOLIN 2 GM/D5W 2 GM/50 ML ML IVPB SCH (04:58)
[2017-10-11] MEDS: LEVOTHYROXINE NA 50 MCG TABLET (FP) PO SCH (07:01)
[2017-10-11 07:47] LABS: BASO % 0.1 % (0-2.0); EOS % 2.3 % (0-4.5); HEMATOCRIT 22.4 % (35.4-49); HEMOGLOBIN 7.4 GM/dL (11.7-16.9); LYMPH % 3.8 % (8-40); MCHC 32.9 g/dl (32.0-35.9); MEAN CELL VOLUME 100.4 fl (80-96); MEAN PLT VOLUME 9.1 fl (7.5-11.1); MONO % 9.2 % (3.8-10.2); NEUT % 84.6 % (42.8-82.8); PLATELET COUNT 97 K/MM3 (134-434); RBC 2.23 M/mm3 (4.00-5.60); RDW 19.6 % (11.9-15.9); WHITE BLOOD COUNT 8.5 K/mm3 (4.0-10.0)
[2017-10-11 08:05] LABS: ALBUMIN 1.8 g/dl (3.4-5.0); ANION GAP 7 (8-16); BLOOD UREA NITROGEN 18 mg/dL (7-18); CALCIUM 7.7 mg/dL (8.5-10.1); CHLORIDE 110 mmol/L (98-107); CO2 30 mmol/L (21-32); GLUCOSE,RANDOM 98 mg/dL (74-106); MAGNESIUM 1.6 mg/dL (1.8-2.4); POTASSIUM 3.7 mmol/L (3.5-5.1); SGOT/AST 18 U/L (15-37); SGPT/ALT 19 U/L (12-78); SODIUM 147 mmol/L (136-145)
[2017-10-11 08:08] LABS: ALK PHOS 45 U/L (45-117); BILIRUBIN,TOTAL 1.1 mg/dL (0.2-1.0); CREATININE 0.7 mg/dL (0.7-1.3); TOT PROT 5.1 g/dl (6.4-8.2)
[2017-10-11] MEDS ORDERED: PT OWN MED DRAWER 7, Y5N ONE (09:20)
[2017-10-11] MEDS: PREGABALIN 50 MG CAPSULE PO SCH ×2 (09:25→21:11)
[2017-10-11] MEDS: METOPROLOL SUCCINATE 50 MG TAB.SR.24H (FP) PO SCH (09:25)
[2017-10-11] MEDS: valACYclovir HCL 500 MG TABLET (FP) PO SCH (09:26)
[2017-10-11] MEDS: PANTOPRAZOLE 40 MG TABLET (FP) PO SCH (09:26)
[2017-10-11] MEDS: CEFAZOLIN 1 GM PUSH 1 GM/10 ML DISP.SYRIN IVPUSH SCH ×2 (09:28→20:29)
[2017-10-11] MEDS: ENOXAPARIN NA (PORCINE) 40 MG/0.4 ML DISP.SYRIN SQ SCH (09:28)
[2017-10-11] MEDS: PAROXETINE HCL 20 MG, PAROXETINE HCL 10 MG PO SCH (09:29)
[2017-10-11] MEDS: LENALIDOMIDE 15 MG PO SCH (09:30)
[2017-10-11] MEDS ORDERED: ASPIRIN 325 MG TABLET PO SCH (10:00)
[2017-10-11] MEDS ORDERED: ENOXAPARIN NA (PORCINE) 40 MG/0.4 ML DISP.SYRIN SQ SCH (10:00)
--- NOTE | 2017-10-11 10:23 | PN ---
Progress Note (short form) - Note Progress Note: Anesthesiology Post-op POD#1 s/p right femur intermedullary nail placement under GA. Pt. is awake and alert. He does c/o some pain but states that the pain medicine does help. Otherwise, VSS. Chronic anemia and thrombocytopenia, multiple myeloma; hematology on board for management. No apparent anesthesia-related issues.
--- NOTE | 2017-10-11 11:49 | PN ---
Progress Note (short form) - Note Progress Note: Oncology Follow-up Note S: is in good spirits when visited today. He says he does not feel any pain when I visited him as he had just had dilaudid. Last Vital Signs Temp Pulse Resp BP Pulse Ox 99.8 F H 96 H 19 133/68 93 L 10/11/17 09:00 10/11/17 09:00 10/11/17 09:00 10/11/17 09:00 10/10/17 22:00 Physical Exam AOx3, Left eye patch CTA (BL) Soft abdomen, NT, ND functioning colostomy spann catheter Ext:s/p right hip surgical repair swelling right hip Skin: numerous ecchymoses CBC, BMP 10/11/17 06:00 10/11/17 06:00 Current Medications Generic Name Dose Route Start Last Admin Trade Name Freq PRN Reason Stop Dose Admin Dexamethasone 4 mg 10/10/17 13:59 Decadron - PO WEEKLY [facility] Enoxaparin Sodium 40 mg 10/11/17 10:00 10/11/17 09:28 Lovenox - SQ 40 mg DAILY [facility] Administration Hydromorphone HCl 1 mg 10/10/17 13:59 10/11/17 10:17 Dilaudid Injection - IVPB 1 mg Q6H PRN Administration PAIN Cefazolin Sodium 1 gm in 10 mls @ 120 mls/hr 10/11/17 10:00 10/11/17 09:28 Ancef - IVPUSH 120 mls/hr Q8H-IV [facility] Administration Sodium Chloride 1,000 mls @ 100 mls/hr 10/10/17 13:59 10/10/17 15:16 Normal Saline - IV 100 mls/hr ASDIR [facility] Administration Levothyroxine Sodium 50 mcg 10/11/17 07:00 10/11/17 07:01 Synthroid - PO Not Given DAILY@0700 [facility] Metoprolol Succinate 50 mg 10/11/17 10:00 10/11/17 09:25 Toprol Xl - PO 50 mg DAILY [facility] Administration Non-Formulary Medication 15 mg 10/11/17 10:00 10/11/17 09:30 Lenalidomide [Revlimid] PO 15 mg DAILY [facility] Administration Ondansetron HCl 4 mg 10/10/17 13:59 Zofran Injection IVPUSH Q6H PRN NAUSEA Pantoprazole Sodium 40 mg 10/11/17 10:00 10/11/17 09:26 Protonix - PO 40 mg DAILY [facility] Administration Paroxetine HCl 20 mg/ 30 mg 10/11/17 10:00 10/11/17 09:29 Paroxetine HCl 10 mg PO 30 mg DAILY [facility] Administration Pregabalin 50 mg 10/10/17 22:00 10/11/17 09:25 Lyrica - PO 50 mg BID [facility] Administration Valacyclovir HCl 500 mg 10/11/17 10:00 10/11/17 09:26 Valtrex - PO 500 mg DAILY [facility] Administration A/P : 77 y/o male with multiple myeloma, currently on revlimid 15 mg PO daily - s/p nail fixation of right femur pathologic fracture -right hip hematoma, monitor daily CBC's to assess need for transfusion -drop in platelets today, hold revlimid if plt count < 50K -high risk for DVT, encouraged early mobilization and A/C (On DVT prophylaxis) provided plt counts stay above 50k -will continue to follow closely
--- NOTE | 2017-10-11 12:22 | EKG ---
Test Reason : Blood Pressure : / mmHG Vent. Rate : 070 BPM Atrial Rate : 070 BPM P-R Int : 186 ms QRS Dur : 076 ms QT Int : 440 ms P-R-T Axes : 077 019 067 degrees QTc Int : 475 ms NORMAL SINUS RHYTHM NORMAL ECG WHEN COMPARED WITH ECG OF 08-OCT-2017 06:26, NO SIGNIFICANT CHANGE WAS FOUND Confirmed by MD SIMON, MARIA EUGENIA ([id number]) on 10/11/2017 12:22:22 PM Referred By: Confirmed By:MARIA EUGENIA MONTES MD
--- NOTE | 2017-10-11 12:27 | PN ---
Progress Note, Physician Chief Complaint: S/P Rt Long Gamma IM nail for pathologiscal fracture Post Op day 1, pain is well controlled. - Current Medication List Current Medications: Active Medications Dexamethasone (Decadron -) 4 mg PO WEEKLY [facility] Enoxaparin Sodium (Lovenox -) 40 mg SQ DAILY [facility] Last Admin: 10/11/17 09:28 Dose: 40 mg Hydromorphone HCl (Dilaudid Injection -) 1 mg IVPB Q6H PRN PRN Reason: PAIN Last Admin: 10/11/17 10:17 Dose: 1 mg Cefazolin Sodium (Ancef -) 1 gm in 10 mls @ 120 mls/hr IVPUSH Q8H-IV [facility] Last Admin: 10/11/17 09:28 Dose: 120 mls/hr Sodium Chloride (Normal Saline -) 1,000 mls @ 100 mls/hr IV ASDIR [facility] Last Admin: 10/10/17 15:16 Dose: 100 mls/hr Levothyroxine Sodium (Synthroid -) 50 mcg PO DAILY@0700 [facility] Last Admin: 10/11/17 07:01 Dose: Not Given Metoprolol Succinate (Toprol Xl -) 50 mg PO DAILY [facility] Last Admin: 10/11/17 09:25 Dose: 50 mg Non-Formulary Medication (Lenalidomide [Revlimid]) 15 mg PO DAILY [facility] Last Admin: 10/11/17 09:30 Dose: 15 mg Ondansetron HCl (Zofran Injection) 4 mg IVPUSH Q6H PRN PRN Reason: NAUSEA Pantoprazole Sodium (Protonix -) 40 mg PO DAILY [facility] Last Admin: 10/11/17 09:26 Dose: 40 mg Paroxetine HCl 20 mg/ (Paroxetine HCl 10 mg) 30 mg PO DAILY [facility] Last Admin: 10/11/17 09:29 Dose: 30 mg Pregabalin (Lyrica -) 50 mg PO BID [facility] Last Admin: 10/11/17 09:25 Dose: 50 mg Valacyclovir HCl (Valtrex -) 500 mg PO DAILY [facility] Last Admin: 10/11/17 09:26 Dose: 500 mg - Objective Vital Signs: Vital Signs Temperature 99.8 F H 10/11/17 09:00 Pulse Rate 96 H 10/11/17 09:00 Respiratory Rate 19 10/11/17 09:00 Blood Pressure 133/68 10/11/17 09:00 O2 Sat by Pulse Oximetry (%) 94 L 10/11/17 09:00 Comfortable not in distress HEENT: Mm moist, Anemia + NECK Supple, No JVd No Bruit CHEST: CTA B/L CVS: S1S2 R no m/g/r ABD: No distention, non tender Bs + EXT: S/P Lpng IM Nail, Pulses + OVERCOIL STEPPER: AOX3 non focal no interval changes Labs: CBC, BMP 10/11/17 06:00 10/11/17 06:00 INR, PTT INR 1.33 (0.82-1.09) H 10/08/17 06:27 Problem List - Problems (1) Pathological fracture, right femur, initial encounter for fracture Assessment/Plan: Ist Post OP day s/p Long IM Gamma nail, pain is well controlled, post Op management as per ortho team. Code(s): M84.451A - PATHOLOGICAL FRACTURE, RIGHT FEMUR, INIT ENCNTR FOR FRACTURE (2) Syncope and collapse Assessment/Plan: No New episode , will discuss with Cardiology if we can DC Tele monitor Code(s): R55 - SYNCOPE AND COLLAPSE (3) HTN (hypertension) Assessment/Plan: Well controlled cont all home meds Code(s): I10 - ESSENTIAL (PRIMARY) HYPERTENSION (4) Paroxysmal A-fib Assessment/Plan: IIn NSR rate controlled off AC will discuss with oprtho to resume AC Code(s): I48.0 - PAROXYSMAL ATRIAL FIBRILLATION (5) Elevated lactic acid level Code(s): R79.89 - OTHER SPECIFIED ABNORMAL FINDINGS OF BLOOD CHEMISTRY (6) Hypothyroidism Code(s): E03.9 - HYPOTHYROIDISM, UNSPECIFIED Qualifiers: Hypothyroidism type: unspecified Qualified Code(s): E03.9 - Hypothyroidism , unspecified (7) Multiple myeloma Assessment/Plan: On Chemotherapy cont Home meds and Prophylactic Valcyclovir Code(s): C90.00 - MULTIPLE MYELOMA NOT HAVING ACHIEVED REMISSION (8) CHEPE (acute kidney injury) Assessment/Plan: Resolved normal Renal functions Code(s): N17.9 - ACUTE KIDNEY FAILURE, UNSPECIFIED (9) Pubic ramus fracture Assessment/Plan: Stable pain control Code(s): S32.599A - OTH FRACTURE OF UNSP PUBIS, INIT ENCNTR FOR CLOSED FRACTURE (10) Anemia, posthemorrhagic, acute Assessment/Plan: Hb 7.4 will consider 1 unit PRBC transfusion after discussing with ortho consult. Code(s): D62 - ACUTE POSTHEMORRHAGIC ANEMIA
--- NOTE | 2017-10-11 12:31 | OP ---
DATE OF OPERATION: 10/10/2017 PREOPERATIVE DIAGNOSIS: Right intertrochanteric/subtrochanteric femur fracture. POSTOPERATIVE DIAGNOSIS: Right intertrochanteric/subtrochanteric femur fracture. PROCEDURE: Right long Gamma nail. SURGICAL ATTENDING: Rio Mendoza MD TRIPE SCRAPER: JODI Degroot ANESTHESIA: LMA. CLOSURE: Long Gamma nail with appropriate interlocks, 0 Vicryl to fascia, 2-0 subcutaneous, guru to skin. ESTIMATED BLOOD LOSS: Approximately 150 mL. COMPLICATIONS: None. CONDITION: To recovery room in stable condition. DESCRIPTION OF PROCEDURE: The patient was taken to the operating room on October 10, 2017. General anesthesia was administered by the anesthesiologist. IV Kefzol was administered prophylactically prior to the case. The patient was placed on the fracture table with all prominences well padded. The right hip area was prepped and draped in the usual sterile fashion using a shower curtain. X-rays AP and lateral views revealed anatomic reduction of the fracture. A 4-cm longitudinal incision to the tip of the greater trochanter was incised. Hemostasis achieved with Bovie electrocautery. Sharp dissection was carried down to the level of the fascia, which was opened as well. A guidewire was drilled from the tip of the greater trochanter into the intramedullary canal. Proper placement was confirmed in the AP and lateral plane using image intensifier. This was over reamed with a proximal reamer. A long ball-tipped guidewire was placed all the way down the canal down to the knee. This was measured for length. A 400-mm length jinny was then malleted down into place. The outrigger was used through a small incision proximally. Guidewire was drilled from the lateral aspect of the femur through the femoral neck in the jinny into the femoral head. Proper placement was confirmed in the AP and lateral plane using image intensifier, reamed with a triple reamer and screwed to the appropriate length with a screw and compression. The set screw was placed from above in a locking fashion as this was more of a subtrochanteric fracture below the screw. Using freehand technique, 2 distal locking screws were placed through a stab incision followed by a 15 blade and blunt trocar. They were drilled, depth gaged, and then screwed with the appropriate sized screws after the traction was reduced to allow the fracture ends compress with each other. Proper placement of all hardware and successful reduction of the fracture in the AP and lateral plane. The wounds were irrigated. The fascia was closed with No. 1 Vicryl, 0 and 2-0 for subcutaneous and guru for skin. A sterile pressure dressing was placed over the incision. The patient was awakened from anesthesia and transferred to Recovery in stable condition. No complications. Estimated blood loss approximately 150 mL. Nikolai BAUTISTA/[id number]
--- NOTE | 2017-10-11 12:39 | PN ---
Progress Note, Physician Chief Complaint: Events noted Complains of right hip pain History of Present Illness: Patient was seen and examined. Awake and alert. Chart was reviewed Denies chest pain, SOB or palpitations - Current Medication List Current Medications: Active Medications Dexamethasone (Decadron -) 4 mg PO WEEKLY [facility] Enoxaparin Sodium (Lovenox -) 40 mg SQ DAILY [facility] Last Admin: 10/11/17 09:28 Dose: 40 mg Hydromorphone HCl (Dilaudid Injection -) 1 mg IVPB Q6H PRN PRN Reason: PAIN Last Admin: 10/11/17 10:17 Dose: 1 mg Cefazolin Sodium (Ancef -) 1 gm in 10 mls @ 120 mls/hr IVPUSH Q8H-IV [facility] Last Admin: 10/11/17 09:28 Dose: 120 mls/hr Sodium Chloride (Normal Saline -) 1,000 mls @ 100 mls/hr IV ASDIR [facility] Last Admin: 10/10/17 15:16 Dose: 100 mls/hr Levothyroxine Sodium (Synthroid -) 50 mcg PO DAILY@0700 [facility] Last Admin: 10/11/17 07:01 Dose: Not Given Metoprolol Succinate (Toprol Xl -) 50 mg PO DAILY [facility] Last Admin: 10/11/17 09:25 Dose: 50 mg Non-Formulary Medication (Lenalidomide [Revlimid]) 15 mg PO DAILY [facility] Last Admin: 10/11/17 09:30 Dose: 15 mg Ondansetron HCl (Zofran Injection) 4 mg IVPUSH Q6H PRN PRN Reason: NAUSEA Pantoprazole Sodium (Protonix -) 40 mg PO DAILY [facility] Last Admin: 10/11/17 09:26 Dose: 40 mg Paroxetine HCl 20 mg/ (Paroxetine HCl 10 mg) 30 mg PO DAILY [facility] Last Admin: 10/11/17 09:29 Dose: 30 mg Pregabalin (Lyrica -) 50 mg PO BID [facility] Last Admin: 10/11/17 09:25 Dose: 50 mg Valacyclovir HCl (Valtrex -) 500 mg PO DAILY [facility] Last Admin: 10/11/17 09:26 Dose: 500 mg - Objective Vital Signs: Vital Signs Temperature 99.8 F H 10/11/17 09:00 Pulse Rate 96 H 10/11/17 09:00 Respiratory Rate 19 10/11/17 09:00 Blood Pressure 133/68 10/11/17 09:00 O2 Sat by Pulse Oximetry (%) 94 L 10/11/17 09:00 Eyes: Yes: PERRL HENT: Yes: Atraumatic Neck: Yes: Supple Cardiovascular: Yes: Regular Rate and Rhythm, Murmur (Soft SM), S1, S2 Respiratory: Yes: Diminished Gastrointestinal: Yes: Normal Bowel Sounds, Soft. No: Tenderness Edema: No Additional Findings/Remarks: - Review of Systems Constitutional: denies: Fever. denies: Chills Cardiovascular: denies: Chest Pain, Palpitations, Shortness of Breath Respiratory: denies: Cough, Hemoptysis, Orthopnea, PND, SOB, SOB on Exertion Gastrointestinal: denies: Abdominal Pain, Nausea. denies: Constipation, Diarrhea, Melena, Rectal Bleeding, Vomiting Genitourinary: denies: Dysuria Neurological: denies: Dizziness, Headache, Syncope, Tremors Musculoskeletal: (+) joint pains Labs: CBC, BMP 10/11/17 06:00 10/11/17 06:00 Problem List - Problems (1) CHEPE (acute kidney injury) Code(s): N17.9 - ACUTE KIDNEY FAILURE, UNSPECIFIED (2) Anemia, posthemorrhagic, acute Code(s): D62 - ACUTE POSTHEMORRHAGIC ANEMIA (3) Femur fracture Code(s): S72.90XA - UNSP FRACTURE OF UNSP FEMUR, INIT ENCNTR FOR CLOSED FRACTURE Qualifiers: Encounter type: subsequent encounter (4) HTN (hypertension) Code(s): I10 - ESSENTIAL (PRIMARY) HYPERTENSION Qualifiers: Hypertension type: essential hypertension Qualified Code(s): I10 - Essential (primary) hypertension (5) Hypothyroidism Code(s): E03.9 - HYPOTHYROIDISM, UNSPECIFIED Qualifiers: Hypothyroidism type: unspecified Qualified Code(s): E03.9 - Hypothyroidism , unspecified (6) Paroxysmal A-fib Code(s): I48.0 - PAROXYSMAL ATRIAL FIBRILLATION (7) Pathological fracture, right femur, initial encounter for fracture Code(s): M84.451A - PATHOLOGICAL FRACTURE, RIGHT FEMUR, INIT ENCNTR FOR FRACTURE (8) Syncope and collapse Code(s): R55 - SYNCOPE AND COLLAPSE (9) Anemia Code(s): D64.9 - ANEMIA, UNSPECIFIED Qualifiers: Anemia type: unspecified type Qualified Code(s): D64.9 - Anemia, unspecified (10) CAD (coronary artery disease) Code(s): I25.10 - ATHSCL HEART DISEASE OF [place] CORONARY ARTERY W/O ANG PCTRS Qualifiers: Coronary Disease-Associated Artery/Lesion type: [place] artery [place] vs. transplanted heart: [place] heart Associated angina: without angina Qualified Code(s): I25.10 - Atherosclerotic heart disease of [place] coronary artery without angina pectoris (11) Multiple myeloma Code(s): C90.00 - MULTIPLE MYELOMA NOT HAVING ACHIEVED REMISSION Qualifiers: Multiple myeloma remission status: not in remission Qualified Code(s): C90.00 - Multiple myeloma not having achieved remission Assessment/Plan 1. Recurrent syncope with orthostatic hypotension - suggestive of vasovagal/ neurocardiogenic, possible autonomic dysfunction and labile hypertension referable to XRT to right carotid sinus body 2. Post right long IM gamma nail for pathologic fracture right proximal femur due to multiple myeloma with hematoma 3. PAF currently in sinus rhythm with [id number] score of 3 on A/C with NOAC 4. PSVT currently in sinus rhythm 5. History of diverticular perforation with purulent peritonitis post exploratory laparotomy with sigmoid resection, end colostomy and abdominal washout 6. Non obstructive CAD, angina pectoris 7. HTN 8. History of multiple myeloma 9. 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 Anemia post transfusion 11. Prolonged QTc resolved off Sotalol 12. Hypothyroidism 13. CHEPE PLAN: 1. Monitor Hgb and transfuse as needed 2. Continue Toprol XL 50 qd and off Sotalol given prolonged QTc - currently QT normalized 3. Resume Eliquis 5 mg bid post-op once hemostasis has been achieved 4. Analgesia as needed and DVT prophylaxis with Lovenox Further plans are to follow Yury Hassan MD
[2017-10-11] MEDS: SODIUM CHLORIDE 1,000 ML IV SCH (14:46)
--- NOTE | 2017-10-11 22:24 | PROC ---
Procedure Note Procedure: AVSS COMFORTABLE BANDAGES DRY AND INATCT CALF SOFT AND NT NVI IMP: DOING WELL PLAN: OOB, CHECK HCT IT IS 22, TRANSFUSE IF ANY LOWER
[2017-10-12] MEDS: SODIUM CHLORIDE 1,000 ML IV SCH ×2 (01:00→18:44)
[2017-10-12] MEDS: CEFAZOLIN 1 GM PUSH 1 GM/10 ML DISP.SYRIN IVPUSH SCH ×3 (01:21→17:01)
[2017-10-12] MEDS ORDERED: HYDROmorphone HCL CARPU-JECT 2 MG/1 ML DISP.SYRIN IVPB ONE (02:30)
[2017-10-12] MEDS ORDERED: PT OWN MED DRAWER 7, Y5N ONE (05:16)
[2017-10-12] MEDS: LEVOTHYROXINE NA 50 MCG TABLET (FP) PO SCH (06:12)
[2017-10-12 07:57] LABS: BASO % 0.1 % (0-2.0); EOS % 2.5 % (0-4.5); HEMATOCRIT 19.6 % (35.4-49); LYMPH % 3.6 % (8-40); MCH 32.7 pg (25.7-33.7); MCHC 32.4 g/dl (32.0-35.9); MEAN CELL VOLUME 100.9 fl (80-96); MEAN PLT VOLUME 9.6 fl (7.5-11.1); MONO % 10.4 % (3.8-10.2); NEUT % 83.4 % (42.8-82.8); PLATELET COUNT 90 K/MM3 (134-434); RBC 1.94 M/mm3 (4.00-5.60); RDW 19.5 % (11.9-15.9); WHITE BLOOD COUNT 7.9 K/mm3 (4.0-10.0)
[2017-10-12 08:04] LABS: HEMOGLOBIN 6.3 GM/dL (11.7-16.9)
[2017-10-12 08:22] LABS: CHLORIDE 111 mmol/L (98-107); POTASSIUM 3.7 mmol/L (3.5-5.1); SODIUM 148 mmol/L (136-145)
[2017-10-12 08:29] LABS: ANION GAP 6 (8-16); BLOOD UREA NITROGEN 17 mg/dL (7-18); CALCIUM 7.9 mg/dL (8.5-10.1); CO2 31 mmol/L (21-32); CREATININE 0.4 mg/dL (0.7-1.3); GLUCOSE,RANDOM 99 mg/dL (74-106)
[2017-10-12] MEDS: HYDROmorphone HCL CARPU-JECT 2 MG/1 ML DISP.SYRIN IVPB PRN ×3 (09:15→21:44)
[2017-10-12] MEDS: METOPROLOL SUCCINATE 50 MG TAB.SR.24H (FP) PO SCH (09:17)
[2017-10-12] MEDS: ENOXAPARIN NA (PORCINE) 40 MG/0.4 ML DISP.SYRIN SQ SCH (09:18)
[2017-10-12] MEDS: valACYclovir HCL 500 MG TABLET (FP) PO SCH (09:18)
[2017-10-12] MEDS: LENALIDOMIDE 15 MG PO SCH (09:19)
[2017-10-12] MEDS: PAROXETINE HCL 20 MG, PAROXETINE HCL 10 MG PO SCH (09:20)
[2017-10-12] MEDS: PANTOPRAZOLE 40 MG TABLET (FP) PO SCH (09:22)
[2017-10-12] MEDS: PREGABALIN 50 MG CAPSULE PO SCH ×2 (09:22→21:44)
--- NOTE | 2017-10-12 12:06 | PN ---
Progress Note (short form) - Note Progress Note: Oncology Follow-up Note S: is receiving pRBC's when visited today, feels well without any complaints. Last Vital Signs Temp Pulse Resp BP Pulse Ox 97.8 F 79 19 121/66 96 10/12/17 11:00 10/12/17 11:00 10/12/17 11:00 10/12/17 11:00 10/11/17 21:00 Physical Exam AOx3, Left eye patch CTA (BL) Soft abdomen, NT, ND functioning colostomy spann catheter Ext:s/p right hip surgical repair swelling right hip Skin: numerous ecchymoses CBC, BMP 10/12/17 06:20 10/12/17 06:20 Current Medications Generic Name Dose Route Start Last Admin Trade Name Freq PRN Reason Stop Dose Admin Dexamethasone 4 mg 10/10/17 13:59 Decadron - PO WEEKLY [facility] Enoxaparin Sodium 40 mg 10/11/17 10:00 10/12/17 09:18 Lovenox - SQ 40 mg DAILY [facility] Administration Hydromorphone HCl 1 mg 10/10/17 13:59 10/12/17 09:15 Dilaudid Injection - IVPB 1 mg Q6H PRN Administration PAIN Cefazolin Sodium 1 gm in 10 mls @ 120 mls/hr 10/11/17 10:00 10/12/17 09:14 Ancef - IVPUSH 120 mls/hr Q8H-IV [facility] Administration Sodium Chloride 1,000 mls @ 100 mls/hr 10/10/17 13:59 10/12/17 01:00 Normal Saline - IV 100 mls/hr ASDIR [facility] Administration Levothyroxine Sodium 50 mcg 10/11/17 07:00 10/12/17 06:12 Synthroid - PO 50 mcg DAILY@0700 [facility] Administration Metoprolol Succinate 50 mg 10/11/17 10:00 10/12/17 09:17 Toprol Xl - PO 50 mg DAILY [facility] Administration Non-Formulary Medication 15 mg 10/11/17 10:00 10/12/17 09:19 Lenalidomide [Revlimid] PO 15 mg DAILY [facility] Administration Ondansetron HCl 4 mg 10/10/17 13:59 Zofran Injection IVPUSH Q6H PRN NAUSEA Pantoprazole Sodium 40 mg 10/11/17 10:00 10/12/17 09:22 Protonix - PO 40 mg DAILY [facility] Administration Paroxetine HCl 20 mg/ 30 mg 10/11/17 10:00 10/12/17 09:20 Paroxetine HCl 10 mg PO 30 mg DAILY [facility] Administration Pregabalin 50 mg 10/10/17 22:00 10/12/17 09:22 Lyrica - PO 50 mg BID [facility] Administration Valacyclovir HCl 500 mg 10/11/17 10:00 10/12/17 09:18 Valtrex - PO 500 mg DAILY [facility] Administration A/P : 77 y/o male with multiple myeloma, currently on revlimid 15 mg PO daily -anemia with Hgb of 6.3 today, one unit pRBC and recheck counts - s/p nail fixation of right femur pathologic fracture -right hip hematoma, monitor daily CBC's to assess need for transfusion -drop in platelets continue, hold revlimid if plt count < 50K -high risk for DVT, encouraged early mobilization and A/C (On DVT prophylaxis) provided plt counts stay above 50k
[2017-10-12] MEDS ORDERED: DOCUSATE SODIUM 100 MG CAPSULE (FP) PO PRN (12:15)
--- NOTE | 2017-10-12 12:15 | PN ---
Progress Note, Physician Chief Complaint: S/P RtFemur Long Gamma IM nail for pathological fracture Post Op day 2, pain is well controlled. - Current Medication List Current Medications: Active Medications Dexamethasone (Decadron -) 4 mg PO WEEKLY [facility] Enoxaparin Sodium (Lovenox -) 40 mg SQ DAILY [facility] Last Admin: 10/12/17 09:18 Dose: 40 mg Hydromorphone HCl (Dilaudid Injection -) 1 mg IVPB Q6H PRN PRN Reason: PAIN Last Admin: 10/12/17 09:15 Dose: 1 mg Cefazolin Sodium (Ancef -) 1 gm in 10 mls @ 120 mls/hr IVPUSH Q8H-IV [facility] Last Admin: 10/12/17 09:14 Dose: 120 mls/hr Sodium Chloride (Normal Saline -) 1,000 mls @ 100 mls/hr IV ASDIR [facility] Last Admin: 10/12/17 01:00 Dose: 100 mls/hr Levothyroxine Sodium (Synthroid -) 50 mcg PO DAILY@0700 [facility] Last Admin: 10/12/17 06:12 Dose: 50 mcg Metoprolol Succinate (Toprol Xl -) 50 mg PO DAILY [facility] Last Admin: 10/12/17 09:17 Dose: 50 mg Non-Formulary Medication (Lenalidomide [Revlimid]) 15 mg PO DAILY [facility] Last Admin: 10/12/17 09:19 Dose: 15 mg Ondansetron HCl (Zofran Injection) 4 mg IVPUSH Q6H PRN PRN Reason: NAUSEA Pantoprazole Sodium (Protonix -) 40 mg PO DAILY [facility] Last Admin: 10/12/17 09:22 Dose: 40 mg Paroxetine HCl 20 mg/ (Paroxetine HCl 10 mg) 30 mg PO DAILY [facility] Last Admin: 10/12/17 09:20 Dose: 30 mg Pregabalin (Lyrica -) 50 mg PO BID [facility] Last Admin: 10/12/17 09:22 Dose: 50 mg Valacyclovir HCl (Valtrex -) 500 mg PO DAILY [facility] Last Admin: 10/12/17 09:18 Dose: 500 mg - Objective Vital Signs: Vital Signs Temperature 97.8 F 10/12/17 11:00 Pulse Rate 79 10/12/17 11:00 Respiratory Rate 19 10/12/17 11:00 Blood Pressure 121/66 10/12/17 11:00 O2 Sat by Pulse Oximetry (%) 96 10/11/17 21:00 Comfortable not in distress HEENT: Mm moist, Anemia + NECK Supple, No JVd No Bruit CHEST: CTA B/L CVS: S1S2 R no m/g/r ABD: No distention,Colostomy at place, non tender Bs + EXT: S/P Lpng IM Nail, 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 Code(s): M84.451A - PATHOLOGICAL FRACTURE, RIGHT FEMUR, INIT ENCNTR FOR FRACTURE (2) Syncope and collapse Assessment/Plan: No New episode , will discuss with Cardiology if we can DC Tele monitor Code(s): R55 - SYNCOPE AND COLLAPSE (3) HTN (hypertension) Assessment/Plan: Well controlled cont all home meds Code(s): I10 - ESSENTIAL (PRIMARY) HYPERTENSION Qualifiers: Hypertension type: essential hypertension Qualified Code(s): I10 - Essential (primary) hypertension (4) Paroxysmal A-fib Assessment/Plan: IIn NSR rate controlled off AC will discuss with oprtho to resume AC Code(s): I48.0 - PAROXYSMAL ATRIAL FIBRILLATION (5) Hypothyroidism Code(s): E03.9 - HYPOTHYROIDISM, UNSPECIFIED Qualifiers: Hypothyroidism type: unspecified Qualified Code(s): E03.9 - Hypothyroidism , unspecified (6) Multiple myeloma Assessment/Plan: On Chemotherapy cont Home meds and Prophylactic Valcyclovir Code(s): C90.00 - MULTIPLE MYELOMA NOT HAVING ACHIEVED REMISSION (7) CHEPE (acute kidney injury) Assessment/Plan: Resolved normal Renal functions Code(s): N17.9 - ACUTE KIDNEY FAILURE, UNSPECIFIED (8) Pubic ramus fracture Assessment/Plan: Stable pain control Code(s): S32.599A - OTH FRACTURE OF UNSP PUBIS, INIT ENCNTR FOR CLOSED FRACTURE (9) Anemia, posthemorrhagic, acute Assessment/Plan: Hb 6.3 , 1 unit PRBC transfusion f/u H/H. Code(s): D62 - ACUTE POSTHEMORRHAGIC ANEMIA
[2017-10-12] MEDS: DEXAMETHASONE 4 MG TABLET (FP) PO SCH (17:53)
[2017-10-12] MEDS: ACETAMINOPHEN 325 MG TABLET (FP) PO PRN (18:44)
--- NOTE | 2017-10-12 20:34 | PN ---
Progress Note, Physician Chief Complaint: Events noted Complains of intermittent right hip pain H/H noted History of Present Illness: Patient was seen and examined. Awake and alert. Chart was reviewed Denies chest pain, SOB or palpitations - Current Medication List Current Medications: Active Medications Acetaminophen (Tylenol -) 650 mg PO Q6H PRN PRN Reason: FEVER Last Admin: 10/12/17 18:44 Dose: 650 mg Dexamethasone (Decadron -) 20 mg PO SuWe@1000 [facility] Last Admin: 10/12/17 17:53 Dose: 20 mg Docusate Sodium (Colace -) 100 mg PO BID PRN PRN Reason: CONSTIPATION Enoxaparin Sodium (Lovenox -) 40 mg SQ DAILY [facility] Last Admin: 10/12/17 09:18 Dose: 40 mg Hydromorphone HCl (Dilaudid Injection -) 1 mg IVPB Q6H PRN PRN Reason: PAIN Last Admin: 10/12/17 14:59 Dose: 1 mg Cefazolin Sodium (Ancef -) 1 gm in 10 mls @ 120 mls/hr IVPUSH Q8H-IV [facility] Last Admin: 10/12/17 17:01 Dose: 120 mls/hr Sodium Chloride (Normal Saline -) 1,000 mls @ 100 mls/hr IV ASDIR [facility] Last Admin: 10/12/17 18:44 Dose: 100 mls/hr Levothyroxine Sodium (Synthroid -) 50 mcg PO DAILY@0700 [facility] Last Admin: 10/12/17 06:12 Dose: 50 mcg Metoprolol Succinate (Toprol Xl -) 50 mg PO DAILY [facility] Last Admin: 10/12/17 09:17 Dose: 50 mg Non-Formulary Medication (Lenalidomide [Revlimid]) 15 mg PO DAILY [facility] Last Admin: 10/12/17 09:19 Dose: 15 mg Ondansetron HCl (Zofran Injection) 4 mg IVPUSH Q6H PRN PRN Reason: NAUSEA Pantoprazole Sodium (Protonix -) 40 mg PO DAILY [facility] Last Admin: 10/12/17 09:22 Dose: 40 mg Paroxetine HCl 20 mg/ (Paroxetine HCl 10 mg) 30 mg PO DAILY [facility] Last Admin: 10/12/17 09:20 Dose: 30 mg Pregabalin (Lyrica -) 50 mg PO BID [facility] Last Admin: 10/12/17 09:22 Dose: 50 mg Valacyclovir HCl (Valtrex -) 500 mg PO DAILY [facility] Last Admin: 10/12/17 09:18 Dose: 500 mg - Objective Vital Signs: Vital Signs Temperature 101.3 F H 10/12/17 18:00 Pulse Rate 95 H 10/12/17 18:00 Respiratory Rate 20 10/12/17 18:00 Blood Pressure 142/76 10/12/17 18:00 O2 Sat by Pulse Oximetry (%) 96 10/12/17 09:00 Neck: Yes: Supple Cardiovascular: Yes: Regular Rate and Rhythm, Murmur (Soft SM), S1, S2 Respiratory: Yes: Diminished Gastrointestinal: Yes: Normal Bowel Sounds, Soft. No: Tenderness Edema: No Additional Findings/Remarks: - Review of Systems Constitutional: denies: Fever. denies: Chills Cardiovascular: denies: Chest Pain, Palpitations, Shortness of Breath Respiratory: denies: Cough, Hemoptysis, Orthopnea, PND, SOB, SOB on Exertion Gastrointestinal: denies: Abdominal Pain, Nausea. denies: Constipation, Diarrhea, Melena, Rectal Bleeding, Vomiting Genitourinary: denies: Dysuria Neurological: denies: Dizziness, Headache, Syncope, Tremors Musculoskeletal: (+) joint pains Labs: CBC, BMP 10/12/17 06:20 10/12/17 06:20 Problem List - Problems (1) CHEPE (acute kidney injury) Code(s): N17.9 - ACUTE KIDNEY FAILURE, UNSPECIFIED (2) Anemia, posthemorrhagic, acute Code(s): D62 - ACUTE POSTHEMORRHAGIC ANEMIA (3) Femur fracture Code(s): S72.90XA - UNSP FRACTURE OF UNSP FEMUR, INIT ENCNTR FOR CLOSED FRACTURE Qualifiers: Encounter type: subsequent encounter (4) HTN (hypertension) Code(s): I10 - ESSENTIAL (PRIMARY) HYPERTENSION Qualifiers: Hypertension type: essential hypertension Qualified Code(s): I10 - Essential (primary) hypertension (5) Hypothyroidism Code(s): E03.9 - HYPOTHYROIDISM, UNSPECIFIED Qualifiers: Hypothyroidism type: unspecified Qualified Code(s): E03.9 - Hypothyroidism , unspecified (6) Paroxysmal A-fib Code(s): I48.0 - PAROXYSMAL ATRIAL FIBRILLATION (7) Pathological fracture, right femur, initial encounter for fracture Code(s): M84.451A - PATHOLOGICAL FRACTURE, RIGHT FEMUR, INIT ENCNTR FOR FRACTURE (8) Syncope and collapse Code(s): R55 - SYNCOPE AND COLLAPSE (9) Anemia Code(s): D64.9 - ANEMIA, UNSPECIFIED Qualifiers: Anemia type: unspecified type Qualified Code(s): D64.9 - Anemia, unspecified (10) CAD (coronary artery disease) Code(s): I25.10 - ATHSCL HEART DISEASE OF [place] CORONARY ARTERY W/O ANG PCTRS Qualifiers: Coronary Disease-Associated Artery/Lesion type: [place] artery [place] vs. transplanted heart: [place] heart Associated angina: without angina Qualified Code(s): I25.10 - Atherosclerotic heart disease of [place] coronary artery without angina pectoris (11) Multiple myeloma Code(s): C90.00 - MULTIPLE MYELOMA NOT HAVING ACHIEVED REMISSION Qualifiers: Multiple myeloma remission status: not in remission Qualified Code(s): C90.00 - Multiple myeloma not having achieved remission Assessment/Plan 1. Recurrent syncope with orthostatic hypotension - suggestive of vasovagal/ neurocardiogenic, possible autonomic dysfunction and labile hypertension referable to XRT to right carotid sinus body 2. Post right long IM gamma nail for pathologic fracture right proximal femur due to multiple myeloma with hematoma 3. PAF currently in sinus rhythm with [id number] score of 3 on A/C with NOAC 4. PSVT currently in sinus rhythm 5. History of diverticular perforation with purulent peritonitis post exploratory laparotomy with sigmoid resection, end colostomy and abdominal washout 6. Non obstructive CAD, angina pectoris 7. HTN 8. History of multiple myeloma 9. 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 Anemia post transfusion - currently with profound anemia, no active bleeding 11. Prolonged QTc resolved off Sotalol 12. Hypothyroidism 13. CHEPE PLAN: 1. Monitor Hgb and transfuse PRBC 2. Continue Toprol XL 50 qd and off Sotalol given prolonged QTc - currently QT normalized 3. Resume Eliquis 5 mg bid post-op once hemostasis has been achieved and cleared 4. Analgesia as needed and DVT prophylaxis with Lovenox Further plans are to follow Yury Hassan MD
[2017-10-13] MEDS: ACETAMINOPHEN 325 MG TABLET (FP) PO PRN (00:53)
[2017-10-13] MEDS: CEFAZOLIN 1 GM PUSH 1 GM/10 ML DISP.SYRIN IVPUSH SCH ×3 (02:40→18:19)
[2017-10-13] MEDS: HYDROmorphone HCL CARPU-JECT 2 MG/1 ML DISP.SYRIN IVPB PRN ×3 (06:46→20:39)
[2017-10-13 07:06] LABS: HEMATOCRIT 25.2 % (35.4-49); HEMOGLOBIN 8.2 GM/dL (11.7-16.9); MCH 31.4 pg (25.7-33.7); MCHC 32.5 g/dl (32.0-35.9); MEAN CELL VOLUME 96.7 fl (80-96); MEAN PLT VOLUME 10.1 fl (7.5-11.1); PLATELET COUNT 116 K/MM3 (134-434); RBC 2.61 M/mm3 (4.00-5.60); RDW 21.6 % (11.9-15.9); WHITE BLOOD COUNT 8.8 K/mm3 (4.0-10.0)
[2017-10-13 07:31] LABS: ANION GAP 7 (8-16); BLOOD UREA NITROGEN 24 mg/dL (7-18); CALCIUM 8.5 mg/dL (8.5-10.1); CHLORIDE 109 mmol/L (98-107); CO2 30 mmol/L (21-32); CREATININE 0.6 mg/dL (0.7-1.3); GLUCOSE,RANDOM 139 mg/dL (74-106); POTASSIUM 4.3 mmol/L (3.5-5.1); SODIUM 146 mmol/L (136-145)
[2017-10-13] MEDS: PREGABALIN 50 MG CAPSULE PO SCH ×2 (09:14→21:07)
[2017-10-13] MEDS: ENOXAPARIN NA (PORCINE) 40 MG/0.4 ML DISP.SYRIN SQ SCH (09:14)
[2017-10-13] MEDS: METOPROLOL SUCCINATE 50 MG TAB.SR.24H (FP) PO SCH ×2 (09:14→20:40)
[2017-10-13] MEDS: valACYclovir HCL 500 MG TABLET (FP) PO SCH (09:14)
[2017-10-13] MEDS: LENALIDOMIDE 15 MG PO SCH (09:15)
[2017-10-13] MEDS: PAROXETINE HCL 20 MG, PAROXETINE HCL 10 MG PO SCH (09:16)
[2017-10-13] MEDS: PANTOPRAZOLE 40 MG TABLET (FP) PO SCH (09:16)
[2017-10-13 09:35] LABS: ANISOCYTOSIS 2+; MACROCYTOSIS 1+; OVALOCYTE 1+; PLATELET ESTIMATE DECREASED
--- NOTE | 2017-10-13 09:47 | PN ---
Progress Note (short form) - Note Progress Note: Ortho Pt seen and examined s/p right IM gamma nail Selected Entries 10/13/17 06:00 Temperature 97.9 F Pulse Rate 86 Respiratory 16 Rate Blood Pressure 141/96 Laboratory Tests 10/13/17 05:43 WBC 8.8 Hgb 8.2 L D Hct 25.2 L D Plt Count 116 L D dressing with slight saturation but not to borders, marisol soft, nt nvi a/p PT dvt ppx pain control d/c planning
--- NOTE | 2017-10-13 09:50 | PN ---
Progress Note, Physician Chief Complaint: S/P Rt Femur Long Gamma IM nail for pathological fracture Post OP day 3rd , pain is well controlled. yesterday spiked 101.3 blood culture, U Culture and wound culture ordered, patient remained afebrile, TWBC stayed normal. - Current Medication List Current Medications: Active Medications Acetaminophen (Tylenol -) 650 mg PO Q6H PRN PRN Reason: FEVER Last Admin: 10/13/17 00:53 Dose: 650 mg Dexamethasone (Decadron -) 20 mg PO SuWe@1000 [facility] Last Admin: 10/12/17 17:53 Dose: 20 mg Docusate Sodium (Colace -) 100 mg PO BID PRN PRN Reason: CONSTIPATION Enoxaparin Sodium (Lovenox -) 40 mg SQ DAILY [facility] Last Admin: 10/13/17 09:14 Dose: 40 mg Hydromorphone HCl (Dilaudid Injection -) 1 mg IVPB Q6H PRN PRN Reason: PAIN Last Admin: 10/13/17 06:46 Dose: 1 mg Cefazolin Sodium (Ancef -) 1 gm in 10 mls @ 120 mls/hr IVPUSH Q8H-IV [facility] Last Admin: 10/13/17 02:40 Dose: 120 mls/hr Sodium Chloride (Normal Saline -) 1,000 mls @ 100 mls/hr IV ASDIR [facility] Last Admin: 10/12/17 18:44 Dose: 100 mls/hr Levothyroxine Sodium (Synthroid -) 50 mcg PO DAILY@0700 [facility] Last Admin: 10/12/17 06:12 Dose: 50 mcg Metoprolol Succinate (Toprol Xl -) 50 mg PO DAILY [facility] Last Admin: 10/13/17 09:14 Dose: 50 mg Non-Formulary Medication (Lenalidomide [Revlimid]) 15 mg PO DAILY [facility] Last Admin: 10/13/17 09:15 Dose: 15 mg Ondansetron HCl (Zofran Injection) 4 mg IVPUSH Q6H PRN PRN Reason: NAUSEA Pantoprazole Sodium (Protonix -) 40 mg PO DAILY [facility] Last Admin: 10/13/17 09:16 Dose: 40 mg Paroxetine HCl 20 mg/ (Paroxetine HCl 10 mg) 30 mg PO DAILY [facility] Last Admin: 10/13/17 09:16 Dose: 30 mg Pregabalin (Lyrica -) 50 mg PO BID [facility] Last Admin: 10/13/17 09:14 Dose: 50 mg Valacyclovir HCl (Valtrex -) 500 mg PO DAILY [facility] Last Admin: 10/13/17 09:14 Dose: 500 mg - Objective Vital Signs: Vital Signs Temperature 97.9 F 10/13/17 06:00 Pulse Rate 86 10/13/17 06:00 Respiratory Rate 16 10/13/17 06:00 Blood Pressure 141/96 10/13/17 06:00 O2 Sat by Pulse Oximetry (%) 96 10/13/17 04:13 Comfortable not in distress HEENT: Mm moist, Anemia + NECK Supple, No JVd No Bruit CHEST: CTA B/L CVS: S1S2 R no m/g/r ABD: No distention,Colostomy at place, non tender Bs + EXT: S/P Long 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, 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 little serous discharge operating team was notified. Code(s): M84.451A - PATHOLOGICAL FRACTURE, RIGHT FEMUR, INIT ENCNTR FOR FRACTURE (2) HTN (hypertension) Code(s): I10 - ESSENTIAL (PRIMARY) HYPERTENSION Qualifiers: Hypertension type: essential hypertension Qualified Code(s): I10 - Essential (primary) hypertension (3) Paroxysmal A-fib Assessment/Plan: IIn NSR rate controlled off AC will discuss with oprtho to resume AC Code(s): I48.0 - PAROXYSMAL ATRIAL FIBRILLATION (4) Hypothyroidism Assessment/Plan: On Levothyroxine Code(s): E03.9 - HYPOTHYROIDISM, UNSPECIFIED Qualifiers: Hypothyroidism type: unspecified Qualified Code(s): E03.9 - Hypothyroidism , unspecified (5) Multiple myeloma Assessment/Plan: On Chemotherapy cont Home meds and Prophylactic Valcyclovir Code(s): C90.00 - MULTIPLE MYELOMA NOT HAVING ACHIEVED REMISSION (6) Pubic ramus fracture Assessment/Plan: Stable pain control Code(s): S32.599A - OTH FRACTURE OF UNSP PUBIS, INIT ENCNTR FOR CLOSED FRACTURE (7) Anemia, posthemorrhagic, acute Assessment/Plan: Improved after transfusion today Hb 8.3. Code(s): D62 - ACUTE POSTHEMORRHAGIC ANEMIA (8) Fever Assessment/Plan: Yesterday spiked fever cultures ordered , CXR n? Left basal infiltrae ?? will F/ U ID input. Code(s): R50.9 - FEVER, UNSPECIFIED (9) UTI (urinary tract infection) Assessment/Plan: On Cefazolin day 5th as per culture and sensitivity. Code(s): N39.0 - URINARY TRACT INFECTION, SITE NOT SPECIFIED
--- NOTE | 2017-10-13 10:12 | PN ---
Progress Note, Physician History of Present Illness: No further near or true syncope, s/p right long IM gamma nail. He denies chest pain, palpitation, orthopnea. Episodes of self-limited rapid PAF->SR. QTc has improved off sotalol. - Current Medication List Current Medications: Active Medications Acetaminophen (Tylenol -) 650 mg PO Q6H PRN PRN Reason: FEVER Last Admin: 10/13/17 00:53 Dose: 650 mg Dexamethasone (Decadron -) 20 mg PO SuWe@1000 [facility] Last Admin: 10/12/17 17:53 Dose: 20 mg Docusate Sodium (Colace -) 100 mg PO BID PRN PRN Reason: CONSTIPATION Enoxaparin Sodium (Lovenox -) 40 mg SQ DAILY [facility] Last Admin: 10/13/17 09:14 Dose: 40 mg Hydromorphone HCl (Dilaudid Injection -) 1 mg IVPB Q6H PRN PRN Reason: PAIN Last Admin: 10/13/17 06:46 Dose: 1 mg Cefazolin Sodium (Ancef -) 1 gm in 10 mls @ 120 mls/hr IVPUSH Q8H-IV [facility] Last Admin: 10/13/17 02:40 Dose: 120 mls/hr Sodium Chloride (Normal Saline -) 1,000 mls @ 100 mls/hr IV ASDIR [facility] Last Admin: 10/12/17 18:44 Dose: 100 mls/hr Levothyroxine Sodium (Synthroid -) 50 mcg PO DAILY@0700 [facility] Last Admin: 10/12/17 06:12 Dose: 50 mcg Metoprolol Succinate (Toprol Xl -) 50 mg PO DAILY [facility] Last Admin: 10/13/17 09:14 Dose: 50 mg Non-Formulary Medication (Lenalidomide [Revlimid]) 15 mg PO DAILY [facility] Last Admin: 10/13/17 09:15 Dose: 15 mg Ondansetron HCl (Zofran Injection) 4 mg IVPUSH Q6H PRN PRN Reason: NAUSEA Pantoprazole Sodium (Protonix -) 40 mg PO DAILY [facility] Last Admin: 10/13/17 09:16 Dose: 40 mg Paroxetine HCl 20 mg/ (Paroxetine HCl 10 mg) 30 mg PO DAILY [facility] Last Admin: 10/13/17 09:16 Dose: 30 mg Pregabalin (Lyrica -) 50 mg PO BID [facility] Last Admin: 10/13/17 09:14 Dose: 50 mg Valacyclovir HCl (Valtrex -) 500 mg PO DAILY [facility] Last Admin: 10/13/17 09:14 Dose: 500 mg - Objective Vital Signs: Vital Signs Temperature 97.9 F 10/13/17 06:00 Pulse Rate 86 10/13/17 06:00 Respiratory Rate 16 10/13/17 06:00 Blood Pressure 141/96 10/13/17 06:00 O2 Sat by Pulse Oximetry (%) 96 10/13/17 04:13 Constitutional: Yes: No Distress, Calm Neck: Yes: Supple Cardiovascular: Yes: Regular Rate and Rhythm Respiratory: Yes: Regular, Diminished, On Nasal O2 Gastrointestinal: Yes: Normal Bowel Sounds, Soft Edema: No Labs: CBC, BMP 10/13/17 05:43 10/13/17 05:43 INR, PTT INR 1.33 (0.82-1.09) H 10/08/17 06:27 - ....Imaging Chest X-ray: Report Reviewed (Min left base atx/infiltrate) EKG: Report Reviewed (Tele: PAF->SR) Problem List - Problems (1) Pathological fracture, right femur, initial encounter for fracture Code(s): M84.451A - PATHOLOGICAL FRACTURE, RIGHT FEMUR, INIT ENCNTR FOR FRACTURE (2) HTN (hypertension) Code(s): I10 - ESSENTIAL (PRIMARY) HYPERTENSION Qualifiers: Hypertension type: essential hypertension Qualified Code(s): I10 - Essential (primary) hypertension (3) Multiple myeloma Code(s): C90.00 - MULTIPLE MYELOMA NOT HAVING ACHIEVED REMISSION Qualifiers: Multiple myeloma remission status: not in remission Qualified Code(s): C90.00 - Multiple myeloma not having achieved remission (4) PAF (paroxysmal atrial fibrillation) Code(s): I48.0 - PAROXYSMAL ATRIAL FIBRILLATION (5) PSVT (paroxysmal supraventricular tachycardia) Code(s): I47.1 - SUPRAVENTRICULAR TACHYCARDIA (6) Syncope Code(s): R55 - SYNCOPE AND COLLAPSE Qualifiers: Syncope type: vasovagal syncope Qualified Code(s): R55 - Syncope and collapse (7) Anticoagulant long-term use Code(s): Z79.01 - SHELTER (CURRENT) USE OF ANTICOAGULANTS (8) Pelvic hematoma, male Code(s): N50.1 - VASCULAR DISORDERS OF MALE GENITAL ORGANS (9) Femur fracture Code(s): S72.90XA - UNSP FRACTURE OF UNSP FEMUR, INIT ENCNTR FOR CLOSED FRACTURE Qualifiers: Encounter type: subsequent encounter Assessment/Plan 1. Recurrent syncope with orthostatic hypotension - suggestive of vasovagal/ neurocardiogenic, possible autonomic dysfunction and labile hypertension referable to XRT to right carotid sinus body 2. Post right long IM gamma nail for pathologic fracture right proximal femur due to multiple myeloma with hematoma 3. PAF currently in sinus rhythm with [id number] score of 3 on A/C with NOAC 4. PSVT currently in sinus rhythm 5. History of diverticular perforation with purulent peritonitis post exploratory laparotomy with sigmoid resection, end colostomy and abdominal washout 6. Non obstructive CAD, angina pectoris 7. HTN 8. History of multiple myeloma 9. 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 Post-op anemia post transfusion 11. Prolonged QTc resolved off Sotalol 12. Hypothyroidism 13. CHEPE referable to hemodynamic alterations resolved PLAN: 1. Monitor Hgb post PRBC transfusion 2. Continue Toprol XL 50 qd and off Sotalol given prolonged QTc - currently QT normalized 3. Resume Eliquis 5 mg bid post-op once hemostasis has been achieved and Hgb stabilizes 4. Analgesia as needed and DVT prophylaxis with Lovenox in meantime
[2017-10-13] MEDS: LEVOTHYROXINE NA 50 MCG TABLET (FP) PO SCH (11:04)
--- NOTE | 2017-10-13 12:07 | CON.ID ---
Consult Consult Specialty:: infectious diseases Referred by:: Reason for Consultation:: fever - History of Present Illness Chief Complaint: syncope ,fall History of Present Illness: 77 year old male with underlying history of multiple myeloma with widespread spinal involvement with vertebral compression fractures, s/p multiple kyphoplasties and palliative radiation therapy and chemotherapy, melanoma and parotid cancer, PAF and PSVT, perforated viscus and pneumoperitoneum post exploratory laparotomy showing perforated bowel and purulent peritonitis requiring sigmoid resection, colostomy and abdominal washout, rt carotid CA s/ p resection and RT. He presented after an episode of transient syncope after having BM, preceded by prodromal sxs of light-headedness, fell on right side without head trauma. now with right hip and thigh discomfort referable to right pathologic fracture referable to MM. patient was seen by ortho and taken to the or and patient underwent surgery for the same Post surgery patient was doing well,but started spiking fever. 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 No: Bronchitis (no chronic sputum production says current sputum production isnew) Renal/: Yes: BPH, Neurogenic Bladder, UTI, Other Infectious Disease: Yes: Other (fever possible aspiration pneumonia) ENT: Yes: Other (legally blind right eye) Dermatology: Yes: Melanoma - Past Surgical History Past Surgical History: Yes: Colostomy (For sigmoid colon resection after perforation) - Alcohol/Substance Use Hx Alcohol Use: No - Smoking History Smoking history: Never smoked Have you smoked in the past 12 months: No Aproximately how many cigarettes per day: 0 - Social History ADL: Support Services History of Recent Travel: No Home Medications - Allergies Allergies/Adverse Reactions: Allergies Allergy/AdvReac Type Severity Reaction Status Date / Time No Known Drug Allergies Allergy Verified 10/07/17 15:43 - Home Medications Home Medications: Ambulatory Orders Amlodipine Besylate/Benazepril [Lotrel 5-10 mg Capsule] 5 - 20 mg PO DAILY 10/07 Apixaban [Eliquis -] 5 mg PO BID 10/07/17 Dexamethasone 4 mg PO WEEKLY 10/07/17 Lenalidomide [Revlimid] 15 mg PO DAILY 10/07/17 Levothyroxine [Synthroid -] 50 mcg PO DAILY 10/07/17 Metoprolol Succinate [Toprol Xl -] 50 mg PO DAILY 10/07/17 Pantoprazole Sodium [Protonix -] 40 mg PO DAILY 10/07/17 Paroxetine HCl [Paxil -] 30 mg PO DAILY 10/07/17 Pregabalin [Lyrica -] 50 mg PO BID 10/07/17 Sotalol HCl [Betapace -] 80 mg PO BID 10/07/17 Tamsulosin HCl [Flomax] 0.4 mg PO DAILY 10/07/17 Valacyclovir HCl [Valtrex -] 500 mg PO DAILY 10/07/17 Review of Systems - Review of Systems Constitutional: reports: Fever, Weakness Eyes: reports: No Symptoms HENT: reports: No Symptoms Neck: reports: No Symptoms Cardiovascular: reports: No Symptoms Respiratory: reports: No Symptoms Genitourinary: reports: No Symptoms Musculoskeletal: reports: Back Pain Neurological: reports: No Symptoms Hematology/Lymphatic: reports: No Symptoms Psychiatric: reports: No Symptoms Physical Exam Vital Signs: Vital Signs Temperature 97.9 F 10/13/17 06:00 Pulse Rate 86 10/13/17 06:00 Respiratory Rate 16 10/13/17 06:00 Blood Pressure 141/96 10/13/17 06:00 O2 Sat by Pulse Oximetry (%) 96 10/13/17 04:13 Constitutional: Yes: Calm, Mild Distress Eyes: Yes: Conjunctiva Clear Neck: Yes: Supple, Trachea Midline Respiratory: Yes: Regular, CTA Bilaterally Gastrointestinal: Yes: Normal Bowel Sounds, Soft Musculoskeletal: Yes: Other Extremities: Yes: Other Neurological: Yes: Alert, Oriented Psychiatric: Yes: Alert, Oriented Labs: CBC, BMP 10/13/17 05:43 10/13/17 05:43 Imaging - Results Chest X-ray: Report Reviewed, Image Reviewed Cat Scan: Report Reviewed, Image Reviewed Assessment/Plan Problem List - Problems (1) Pathological fracture, right femur, initial encounter for fracture Code(s): M84.451A - PATHOLOGICAL FRACTURE, RIGHT FEMUR, INIT ENCNTR FOR FRACTURE (2) HTN (hypertension) Code(s): I10 - ESSENTIAL (PRIMARY) HYPERTENSION Qualifiers: Hypertension type: essential hypertension Qualified Code(s): I10 - Essential (primary) hypertension (3) Multiple myeloma Code(s): C90.00 - MULTIPLE MYELOMA NOT HAVING ACHIEVED REMISSION Qualifiers: Multiple myeloma remission status: unspecified Qualified Code(s): C90.00 - Multiple myeloma not having achieved remission (4) PAF (paroxysmal atrial fibrillation) Code(s): I48.0 - PAROXYSMAL ATRIAL FIBRILLATION (5) PSVT (paroxysmal supraventricular tachycardia) Code(s): I47.1 - SUPRAVENTRICULAR TACHYCARDIA (6) Syncope Code(s): R55 - SYNCOPE AND COLLAPSE Qualifiers: Syncope type: vasovagal syncope Qualified Code(s): R55 - Syncope and collapse (7) Anticoagulant long-term use Code(s): Z79.01 - MCFP (CURRENT) USE OF ANTICOAGULANTS (8) Pre-operative cardiovascular examination Code(s): Z01.810 - ENCOUNTER FOR PREPROCEDURAL CARDIOVASCULAR EXAMINATION (9) Hypothyroidism Code(s): E03.9 - HYPOTHYROIDISM, UNSPECIFIED Qualifiers: Hypothyroidism type: unspecified Qualified Code(s): E03.9 - Hypothyroidism , unspecified (10) Pelvic hematoma, male Code(s): N50.1 - VASCULAR DISORDERS OF MALE GENITAL ORGANS (11) Femur fracture Code(s): S72.90XA - UNSP FRACTURE OF UNSP FEMUR, INIT ENCNTR FOR CLOSED FRACTURE Qualifiers: Encounter type: subsequent encounter 12 fever Assessment/Plan syncope with orthostatic hypotension - pathologic fracture right proximal femur due to MM with hematoma History of diverticular perforation t Non obstructive CAD, angina pectoris HTN History of multiple myeloma Head and neck CA with vertebral spine involvement post resection post radiation therapy and chemotherapy Anemia post transfusion Hypothyroidism . CHEPE plan will continue abx all cx have been send will await for results rest as per primary
[2017-10-13] MEDS ORDERED: CEFTRIAXONE 1 GM in DEXTROSE 5%-WATER - 50 ML IVPB SCH (12:15)
[2017-10-13] MEDS: SODIUM CHLORIDE 1,000 ML IV SCH (14:03)
[2017-10-13] MEDS ORDERED: PT OWN MED DRAWER 7, Y5N ONE (17:55)
--- NOTE | 2017-10-13 20:24 | PN ---
Progress Note (short form) - Note Progress Note: Patient seen and examined Denies any complaints AFVSS Cor: RSR, No murmurs, No gallops Lungs: Clear to P&A Abd: Soft, Normal bowel sounds, No organomegaly Ext:No significant edema Skin: No rashes, Integument intact Abnormal Lab Results 10/13/17 05:43 Neutrophils % (Manual) 95.0 H* Lymphocytes % (Manual) 4.0 L D Monocytes % (Manual) 0 L D Active Medications Acetaminophen (Tylenol -) 650 mg PO Q6H PRN PRN Reason: FEVER Last Admin: 10/13/17 00:53 Dose: 650 mg Dexamethasone (Decadron -) 20 mg PO SuWe@1000 [facility] Last Admin: 10/12/17 17:53 Dose: 20 mg Docusate Sodium (Colace -) 100 mg PO BID PRN PRN Reason: CONSTIPATION Enoxaparin Sodium (Lovenox -) 40 mg SQ DAILY [facility] Last Admin: 10/13/17 09:14 Dose: 40 mg Hydromorphone HCl (Dilaudid Injection -) 1 mg IVPB Q6H PRN PRN Reason: PAIN Last Admin: 10/14/17 05:09 Dose: 1 mg Cefazolin Sodium (Ancef -) 1 gm in 10 mls @ 120 mls/hr IVPUSH Q8H-IV [facility] Last Admin: 10/14/17 01:17 Dose: 120 mls/hr Sodium Chloride (Normal Saline -) 1,000 mls @ 100 mls/hr IV ASDIR [facility] Last Admin: 10/14/17 01:00 Dose: 100 mls/hr Levothyroxine Sodium (Synthroid -) 50 mcg PO DAILY@0700 [facility] Last Admin: 10/14/17 06:02 Dose: 50 mcg Metoprolol Succinate (Toprol Xl -) 50 mg PO BID [facility] Last Admin: 10/13/17 20:40 Dose: 50 mg Non-Formulary Medication (Lenalidomide [Revlimid]) 15 mg PO DAILY [facility] Last Admin: 10/13/17 09:15 Dose: 15 mg Ondansetron HCl (Zofran Injection) 4 mg IVPUSH Q6H PRN PRN Reason: NAUSEA Pantoprazole Sodium (Protonix -) 40 mg PO DAILY [facility] Last Admin: 10/13/17 09:16 Dose: 40 mg Paroxetine HCl 20 mg/ (Paroxetine HCl 10 mg) 30 mg PO DAILY [facility] Last Admin: 10/13/17 09:16 Dose: 30 mg Pregabalin (Lyrica -) 50 mg PO BID [facility] Last Admin: 10/13/17 21:07 Dose: 50 mg Valacyclovir HCl (Valtrex -) 500 mg PO DAILY [facility] Last Admin: 10/13/17 09:14 Dose: 500 mg A/P Multiple myeloma - not in remission s/p IM gamma nail repair of pathologic femur fx anemia thrombocytopenia Right femur hematoma s/p transfusion of packed cells. Plan: Continue current revlimid dose monitor cbc high thrombtic risk ---on lovenox prophylaxis
[2017-10-14] MEDS: SODIUM CHLORIDE 1,000 ML IV SCH ×4 (01:00→21:57)
[2017-10-14] MEDS: CEFAZOLIN 1 GM PUSH 1 GM/10 ML DISP.SYRIN IVPUSH SCH ×3 (01:17→17:44)
[2017-10-14] MEDS: HYDROmorphone HCL CARPU-JECT 2 MG/1 ML DISP.SYRIN IVPB PRN ×3 (05:09→21:58)
[2017-10-14] MEDS: LEVOTHYROXINE NA 50 MCG TABLET (FP) PO SCH (06:02)
--- NOTE | 2017-10-14 09:05 | PN ---
Progress Note (short form) - Note Progress Note: Chief Complaint: Events noted, notes reviewed, denies any chest pain or dyspnea , complaining of leg discomfort History of Present Illness: Seen and examined on telemetry. Events noted, notes reviewed, denies any chest pain or dyspnea, complaining of leg discomfort - Current Medication List Current Medications Acetaminophen (Tylenol -) 650 mg PO Q6H PRN PRN Reason: FEVER Last Admin: 10/13/17 00:53 Dose: 650 mg Dexamethasone (Decadron -) 20 mg PO SuWe@1000 [facility] Last Admin: 10/12/17 17:53 Dose: 20 mg Docusate Sodium (Colace -) 100 mg PO BID PRN PRN Reason: CONSTIPATION Enoxaparin Sodium (Lovenox -) 40 mg SQ DAILY [facility] Last Admin: 10/13/17 09:14 Dose: 40 mg Hydromorphone HCl (Dilaudid Injection -) 1 mg IVPB Q6H PRN PRN Reason: PAIN Last Admin: 10/14/17 05:09 Dose: 1 mg Cefazolin Sodium (Ancef -) 1 gm in 10 mls @ 120 mls/hr IVPUSH Q8H-IV [facility] Last Admin: 10/14/17 01:17 Dose: 120 mls/hr Sodium Chloride (Normal Saline -) 1,000 mls @ 100 mls/hr IV ASDIR [facility] Last Admin: 10/14/17 01:00 Dose: 100 mls/hr Levothyroxine Sodium (Synthroid -) 50 mcg PO DAILY@0700 [facility] Last Admin: 10/14/17 06:02 Dose: 50 mcg Metoprolol Succinate (Toprol Xl -) 50 mg PO BID [facility] Last Admin: 10/13/17 20:40 Dose: 50 mg Non-Formulary Medication (Lenalidomide [Revlimid]) 15 mg PO DAILY [facility] Last Admin: 10/13/17 09:15 Dose: 15 mg Ondansetron HCl (Zofran Injection) 4 mg IVPUSH Q6H PRN PRN Reason: NAUSEA Pantoprazole Sodium (Protonix -) 40 mg PO DAILY [facility] Last Admin: 10/13/17 09:16 Dose: 40 mg Paroxetine HCl 20 mg/ (Paroxetine HCl 10 mg) 30 mg PO DAILY [facility] Last Admin: 10/13/17 09:16 Dose: 30 mg Pregabalin (Lyrica -) 50 mg PO BID [facility] Last Admin: 10/13/17 21:07 Dose: 50 mg Valacyclovir HCl (Valtrex -) 500 mg PO DAILY [facility] Last Admin: 10/13/17 09:14 Dose: 500 mg Review of Systems - Review of Systems Constitutional: no symptoms reported Respiratory: denies: Cough or Sputum Production Cardiovascular: As noted above Gastrointestinal: denies Nausea, Vomiting, Diarrhea, Constipation or Abdominal Pain Genitourinary: No symptoms reported Musculoskeletal: Degenerative Joint Disease, Persistent Leg discomfort as noted above Endocrine: No symptoms reported - Objective Vital Signs: Last Vital Signs Temp Pulse Resp BP Pulse Ox 97.9 F 78 20 162/99 94 L 10/14/17 06:00 10/14/17 06:00 10/14/17 06:00 10/14/17 06:00 10/13/17 21:00 Intake & Output 10/11/17 10/12/17 10/13/17 10/14/17 23:59 23:59 23:59 23:59 Intake Total 1970 1500 900 740 Output Total 1400 1500 1150 400 Balance 570 0 -250 340 Constitutional: No Distress, Calm Neck: Supple Negative JVD No Bruit Cardiovascular: S1 S2 Regular Rate Rhythm Respiratory: Diminished Breath Sounds at the Bases Gastrointestinal: Soft Normal Bowel Sounds Colostomy in Situ Ext: No Edema Labs: CBC, BMP 10/13/17 05:43 10/13/17 05:43 Hepatic Panel Total Bilirubin 1.1 mg/dL (0.2-1.0) H 10/11/17 06:00 AST 18 U/L (15-37) 10/11/17 06:00 ALT 19 U/L (12-78) 10/11/17 06:00 Alkaline Phosphatase 45 U/L (45-117) 10/11/17 06:00 Albumin 1.8 g/dl (3.4-5.0) L 10/11/17 06:00 Assessment/Plan ASSESSMENT: 1. Recurrent syncope with orthostatic hypotension - suggestive of vasovagal/ neurocardiogenic, probable autonomic dysfunction and labile hypertension referable to XRT to right carotid sinus body 2. Post right long IM gamma nail for pathologic fracture right proximal femur due to multiple myeloma 3. Paroxysmal atrial fibrillation currently in sinus rhythm with [id number] score of 3 on A/C with NOAC's, therapy on hold 4. History of PSVT currently in sinus rhythm 5. CAD angina pectoris 6. Diastolic LV dysfunction with class 0-I NYHA classification LV failure, compensated/euvolemic 7. HTN 8. History of diverticular perforation with purulent peritonitis post exploratory laparotomy with sigmoid resection, end colostomy and abdominal washout 9. History of multiple myeloma 10. 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 Anemia 12. Hypothyroidism 13. CKD PLAN: 1. Continue Toprol XL 2. Resume Eliquis unless it is absolutely contraindicated with close monitoring of CBC, maintain Hg equal or > 8.0 3. Resume Diovan, hemodynamics permitting 4. Pain management as per the primary team 5. PT Farhan Garrett M.D.
[2017-10-14] MEDS ORDERED: PT OWN MED DRAWER 7, Y5N ONE (10:05)
[2017-10-14] MEDS: valACYclovir HCL 500 MG TABLET (FP) PO SCH (10:17)
[2017-10-14] MEDS: PREGABALIN 50 MG CAPSULE PO SCH ×2 (10:17→21:58)
[2017-10-14] MEDS: ENOXAPARIN NA (PORCINE) 40 MG/0.4 ML DISP.SYRIN SQ SCH (10:18)
[2017-10-14] MEDS: PANTOPRAZOLE 40 MG TABLET (FP) PO SCH (10:18)
[2017-10-14] MEDS: LENALIDOMIDE 15 MG PO SCH (10:18)
[2017-10-14] MEDS: METOPROLOL SUCCINATE 50 MG TAB.SR.24H (FP) PO SCH ×2 (10:18→21:58)
[2017-10-14] MEDS: PAROXETINE HCL 20 MG, PAROXETINE HCL 10 MG PO SCH (10:18)
[2017-10-14 12:23] LABS: ALBUMIN 1.9 g/dl (3.4-5.0); ALK PHOS 63 U/L (45-117); ANION GAP 7 (8-16); BILIRUBIN,TOTAL 0.7 mg/dL (0.2-1.0); BLOOD UREA NITROGEN 25 mg/dL (7-18); CALCIUM 7.9 mg/dL (8.5-10.1); CHLORIDE 108 mmol/L (98-107); CO2 31 mmol/L (21-32); CREATININE 0.6 mg/dL (0.7-1.3); GLUCOSE,RANDOM 104 mg/dL (74-106); SGOT/AST 36 U/L (15-37); SGPT/ALT 23 U/L (12-78); SODIUM 146 mmol/L (136-145); TOT PROT 5.9 g/dl (6.4-8.2)
--- NOTE | 2017-10-14 13:04 | PN ---
Progress Note, Physician History of Present Illness: looks better feels better remained without any fever still weak - Current Medication List Current Medications: Active Medications Acetaminophen (Tylenol -) 650 mg PO Q6H PRN PRN Reason: FEVER Last Admin: 10/13/17 00:53 Dose: 650 mg Dexamethasone (Decadron -) 20 mg PO SuWe@1000 [facility] Last Admin: 10/12/17 17:53 Dose: 20 mg Docusate Sodium (Colace -) 100 mg PO BID PRN PRN Reason: CONSTIPATION Enoxaparin Sodium (Lovenox -) 40 mg SQ DAILY [facility] Last Admin: 10/14/17 10:18 Dose: 40 mg Hydromorphone HCl (Dilaudid Injection -) 1 mg IVPB Q6H PRN PRN Reason: PAIN Last Admin: 10/14/17 05:09 Dose: 1 mg Cefazolin Sodium (Ancef -) 1 gm in 10 mls @ 120 mls/hr IVPUSH Q8H-IV [facility] Last Admin: 10/14/17 10:19 Dose: 120 mls/hr Sodium Chloride (Normal Saline -) 1,000 mls @ 100 mls/hr IV ASDIR [facility] Last Admin: 10/14/17 10:15 Dose: 100 mls/hr Levothyroxine Sodium (Synthroid -) 50 mcg PO DAILY@0700 [facility] Last Admin: 10/14/17 06:02 Dose: 50 mcg Metoprolol Succinate (Toprol Xl -) 50 mg PO BID [facility] Last Admin: 10/14/17 10:18 Dose: 50 mg Non-Formulary Medication (Lenalidomide [Revlimid]) 15 mg PO DAILY [facility] Last Admin: 10/14/17 10:18 Dose: 15 mg Ondansetron HCl (Zofran Injection) 4 mg IVPUSH Q6H PRN PRN Reason: NAUSEA Pantoprazole Sodium (Protonix -) 40 mg PO DAILY [facility] Last Admin: 10/14/17 10:18 Dose: 40 mg Paroxetine HCl 20 mg/ (Paroxetine HCl 10 mg) 30 mg PO DAILY [facility] Last Admin: 10/14/17 10:18 Dose: 30 mg Pregabalin (Lyrica -) 50 mg PO BID [facility] Last Admin: 10/14/17 10:17 Dose: 50 mg Valacyclovir HCl (Valtrex -) 500 mg PO DAILY [facility] Last Admin: 10/14/17 10:17 Dose: 500 mg - Objective Vital Signs: Vital Signs Temperature 98.2 F 10/14/17 09:00 Pulse Rate 74 10/14/17 09:00 Respiratory Rate 18 10/14/17 09:00 Blood Pressure 180/90 10/14/17 09:00 O2 Sat by Pulse Oximetry (%) 94 L 10/13/17 21:00 Constitutional: Yes: Calm, Mild Distress Cardiovascular: Yes: Regular Rate and Rhythm Respiratory: Yes: Regular, CTA Bilaterally Gastrointestinal: Yes: Normal Bowel Sounds, Soft Musculoskeletal: Yes: Other Extremities: Yes: Other Neurological: Yes: Alert, Oriented Psychiatric: Yes: Alert, Oriented Labs: CBC, BMP 10/13/17 05:43 10/14/17 11:10 INR, PTT INR 1.33 (0.82-1.09) H 10/08/17 06:27 Assessment/Plan Problem List - Problems (1) Pathological fracture, right femur, initial encounter for fracture Code(s): M84.451A - PATHOLOGICAL FRACTURE, RIGHT FEMUR, INIT ENCNTR FOR FRACTURE (2) HTN (hypertension) Code(s): I10 - ESSENTIAL (PRIMARY) HYPERTENSION Qualifiers: Hypertension type: essential hypertension Qualified Code(s): I10 - Essential (primary) hypertension (3) Multiple myeloma Code(s): C90.00 - MULTIPLE MYELOMA NOT HAVING ACHIEVED REMISSION Qualifiers: Multiple myeloma remission status: unspecified Qualified Code(s): C90.00 - Multiple myeloma not having achieved remission (4) PAF (paroxysmal atrial fibrillation) Code(s): I48.0 - PAROXYSMAL ATRIAL FIBRILLATION (5) PSVT (paroxysmal supraventricular tachycardia) Code(s): I47.1 - SUPRAVENTRICULAR TACHYCARDIA (6) Syncope Code(s): R55 - SYNCOPE AND COLLAPSE Qualifiers: Syncope type: vasovagal syncope Qualified Code(s): R55 - Syncope and collapse (7) Anticoagulant long-term use 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 (8) Pre-operative cardiovascular examination Code(s): Z01.810 - ENCOUNTER FOR PREPROCEDURAL CARDIOVASCULAR EXAMINATION (9) Hypothyroidism Code(s): E03.9 - HYPOTHYROIDISM, UNSPECIFIED Qualifiers: Hypothyroidism type: unspecified Qualified Code(s): E03.9 - Hypothyroidism , unspecified (10) Pelvic hematoma, male Code(s): N50.1 - VASCULAR DISORDERS OF MALE GENITAL ORGANS (11) Femur fracture Code(s): S72.90XA - UNSP FRACTURE OF UNSP FEMUR, INIT ENCNTR FOR CLOSED FRACTURE Qualifiers: Encounter type: subsequent encounter 12 fever Assessment/Plan syncope with orthostatic hypotension - pathologic fracture right proximal femur due to MM with hematoma History of diverticular perforation t Non obstructive CAD, angina pectoris HTN History of multiple myeloma Head and neck CA with vertebral spine involvement post resection post radiation therapy and chemotherapy Anemia post transfusion Hypothyroidism . CHEPE plan ct abx cx report noted will see how the pattern happens in this severely immunocompromised patient monitor wbc
--- NOTE | 2017-10-14 13:30 | PN ---
Progress Note (short form) - Note Progress Note: Ortho Pt seen and examined s/p right IM gamma nail Selected Entries 10/14/17 09:00 Temperature 98.2 F Pulse Rate 74 Respiratory 18 Rate Blood Pressure 180/90 Laboratory Tests 10/13/17 05:43 WBC 8.8 Hgb 8.2 L D Hct 25.2 L D Plt Count 116 L D dressing with slight saturation but not to borders, marisol soft, nt nvi a/p PT dvt ppx pain control d/c planning
--- NOTE | 2017-10-14 15:05 | PN ---
Progress Note, Physician Chief Complaint: S/P Rt Femur Long Gamma IM nail for pathological fracture Post OP day 4thrd , pain is well controlled. Remained afebrile - Current Medication List Current Medications: Active Medications Acetaminophen (Tylenol -) 650 mg PO Q6H PRN PRN Reason: FEVER Last Admin: 10/13/17 00:53 Dose: 650 mg Dexamethasone (Decadron -) 20 mg PO SuWe@1000 [facility] Last Admin: 10/12/17 17:53 Dose: 20 mg Docusate Sodium (Colace -) 100 mg PO BID PRN PRN Reason: CONSTIPATION Enoxaparin Sodium (Lovenox -) 40 mg SQ DAILY [facility] Last Admin: 10/14/17 10:18 Dose: 40 mg Hydromorphone HCl (Dilaudid Injection -) 1 mg IVPB Q6H PRN PRN Reason: PAIN Last Admin: 10/14/17 05:09 Dose: 1 mg Cefazolin Sodium (Ancef -) 1 gm in 10 mls @ 120 mls/hr IVPUSH Q8H-IV [facility] Last Admin: 10/14/17 10:19 Dose: 120 mls/hr Sodium Chloride (Normal Saline -) 1,000 mls @ 100 mls/hr IV ASDIR [facility] Last Admin: 10/14/17 10:15 Dose: 100 mls/hr Levothyroxine Sodium (Synthroid -) 50 mcg PO DAILY@0700 [facility] Last Admin: 10/14/17 06:02 Dose: 50 mcg Metoprolol Succinate (Toprol Xl -) 50 mg PO BID [facility] Last Admin: 10/14/17 10:18 Dose: 50 mg Non-Formulary Medication (Lenalidomide [Revlimid]) 15 mg PO DAILY [facility] Last Admin: 10/14/17 10:18 Dose: 15 mg Ondansetron HCl (Zofran Injection) 4 mg IVPUSH Q6H PRN PRN Reason: NAUSEA Pantoprazole Sodium (Protonix -) 40 mg PO DAILY [facility] Last Admin: 10/14/17 10:18 Dose: 40 mg Paroxetine HCl 20 mg/ (Paroxetine HCl 10 mg) 30 mg PO DAILY [facility] Last Admin: 10/14/17 10:18 Dose: 30 mg Pregabalin (Lyrica -) 50 mg PO BID [facility] Last Admin: 10/14/17 10:17 Dose: 50 mg Valacyclovir HCl (Valtrex -) 500 mg PO DAILY [facility] Last Admin: 10/14/17 10:17 Dose: 500 mg - Objective Vital Signs: Vital Signs Temperature 98.8 F 10/14/17 14:11 Pulse Rate 78 10/14/17 14:11 Respiratory Rate 18 10/14/17 14:11 Blood Pressure 164/90 10/14/17 14:11 O2 Sat by Pulse Oximetry (%) 94 L 10/13/17 21:00 Comfortable not in distress pain well controlled HEENT: Mm moist, Anemia + NECK Supple, No JVd No Bruit CHEST: CTA B/L CVS: S1S2 R no m/g/r ABD: No distention,Colostomy at place, non tender Bs + EXT: S/P Long IM Nail, Pulses + [employer]ATOR [employer] BILL COMPLAINTS: AOX3 non focal no interval changes Labs: CBC, BMP 10/13/17 05:43 10/14/17 11:10 INR, PTT INR 1.33 (0.82-1.09) H 10/08/17 06:27 Problem List - Problems (1) Pathological fracture, right femur, initial encounter for fracture Assessment/Plan: Post OP day 4th s/p Long IM Gamma nail, pain is well controlled, post Op management as per ortho team. little serous discharge operating team is awre. Code(s): M84.451A - PATHOLOGICAL FRACTURE, RIGHT FEMUR, INIT ENCNTR FOR FRACTURE (2) HTN (hypertension) Assessment/Plan: Well controlled cont all home meds Code(s): I10 - ESSENTIAL (PRIMARY) HYPERTENSION Qualifiers: Hypertension type: essential hypertension Qualified Code(s): I10 - Essential (primary) hypertension (3) Paroxysmal A-fib Assessment/Plan: IIn NSR rate controlled off AC will discuss with orthopaedics to resume AC Code(s): I48.0 - PAROXYSMAL ATRIAL FIBRILLATION (4) Hypothyroidism Assessment/Plan: On Levothyroxine Code(s): E03.9 - HYPOTHYROIDISM, UNSPECIFIED Qualifiers: Hypothyroidism type: unspecified Qualified Code(s): E03.9 - Hypothyroidism , unspecified (5) Multiple myeloma Assessment/Plan: On Chemotherapy cont Home meds and Prophylactic Valcyclovir Code(s): C90.00 - MULTIPLE MYELOMA NOT HAVING ACHIEVED REMISSION (6) Pubic ramus fracture Assessment/Plan: Stable pain control Code(s): S32.599A - OTH FRACTURE OF UNSP PUBIS, INIT ENCNTR FOR CLOSED FRACTURE (7) Anemia, posthemorrhagic, acute Assessment/Plan: Improved after transfusion today Hb 8.3. Code(s): D62 - ACUTE POSTHEMORRHAGIC ANEMIA (8) Fever Assessment/Plan: Remained afebrile so far w/u is negative Code(s): R50.9 - FEVER, UNSPECIFIED (9) UTI (urinary tract infection) Code(s): N39.0 - URINARY TRACT INFECTION, SITE NOT SPECIFIED
--- NOTE | 2017-10-14 16:33 | PN ---
Progress Note (short form) - Note Progress Note: Patient seen and examined events noted. O/E: Constitutional: Yes: Well Nourished, No Distress Eyes: Yes: Conjunctiva Clear HENT: Yes: Atraumatic Neck: Yes: Supple, Trachea Midline Cardiovascular: Yes: Regular Rate and Rhythm Respiratory: Yes: Regular Gastrointestinal: Yes: Normal Bowel Sounds, Soft Extremities: Yes: External Rotation, no echymosses noted. Edema: No Last Vital Signs Temp Pulse Resp BP Pulse Ox 98.8 F 78 18 164/90 94 L 10/14/17 14:11 10/14/17 14:11 10/14/17 14:11 10/14/17 14:11 10/13/17 21:00 CBC, BMP 10/13/17 05:43 10/14/17 11:10 Current Medications Generic Name Dose Route Start Last Admin Trade Name Freq PRN Reason Stop Dose Admin Acetaminophen 650 mg 10/12/17 18:36 10/13/17 00:53 Tylenol - PO 650 mg Q6H PRN Administration FEVER Dexamethasone 20 mg 10/12/17 17:45 10/12/17 17:53 Decadron - PO 20 mg SuWe@1000 [facility] Administration Docusate Sodium 100 mg 10/12/17 12:15 Colace - PO BID PRN CONSTIPATION Enoxaparin Sodium 40 mg 10/11/17 10:00 10/14/17 10:18 Lovenox - SQ 40 mg DAILY [facility] Administration Hydromorphone HCl 1 mg 10/10/17 13:59 10/14/17 15:18 Dilaudid Injection - IVPB 1 mg Q6H PRN Administration PAIN Cefazolin Sodium 1 gm in 10 mls @ 120 mls/hr 10/11/17 10:00 10/14/17 10:19 Ancef - IVPUSH 120 mls/hr Q8H-IV [facility] Administration Sodium Chloride 1,000 mls @ 100 mls/hr 10/10/17 13:59 10/14/17 15:21 Normal Saline - IV Not Given ASDIR [facility] Levothyroxine Sodium 50 mcg 10/11/17 07:00 10/14/17 06:02 Synthroid - PO 50 mcg DAILY@0700 [facility] Administration Metoprolol Succinate 50 mg 10/13/17 20:00 10/14/17 10:18 Toprol Xl - PO 50 mg BID [facility] Administration Non-Formulary Medication 15 mg 10/11/17 10:00 10/14/17 10:18 Lenalidomide [Revlimid] PO 15 mg DAILY [facility] Administration Ondansetron HCl 4 mg 10/10/17 13:59 Zofran Injection IVPUSH Q6H PRN NAUSEA Pantoprazole Sodium 40 mg 10/11/17 10:00 10/14/17 10:18 Protonix - PO 40 mg DAILY [facility] Administration Paroxetine HCl 20 mg/ 30 mg 10/11/17 10:00 10/14/17 10:18 Paroxetine HCl 10 mg PO 30 mg DAILY [facility] Administration Pregabalin 50 mg 10/10/17 22:00 10/14/17 10:17 Lyrica - PO 50 mg BID [facility] Administration Valacyclovir HCl 500 mg 10/11/17 10:00 10/14/17 10:17 Valtrex - PO 500 mg DAILY [facility] Administration Fracture s/p fall: -s/p ORIF (pathological fracture) Multiple Myeloma with extensive bony and spine involvement. -on RVD -c/w Revlimid pAF -resume Eliquis per surgical discretion? -hgb stable CHEPE improved HyperNa: -encourage PO fluid taking. Labs for the am.
[2017-10-15] MEDS: CEFAZOLIN 1 GM PUSH 1 GM/10 ML DISP.SYRIN IVPUSH SCH ×3 (03:01→17:22)
[2017-10-15] MEDS: ACETAMINOPHEN 325 MG TABLET (FP) PO PRN (03:02)
[2017-10-15] MEDS: HYDROmorphone HCL CARPU-JECT 2 MG/1 ML DISP.SYRIN IVPB PRN ×2 (05:54→14:31)
[2017-10-15] MEDS: SODIUM CHLORIDE 1,000 ML IV SCH ×2 (05:59→15:18)
[2017-10-15] MEDS: LEVOTHYROXINE NA 50 MCG TABLET (FP) PO SCH (06:00)
[2017-10-15 07:25] LABS: BASO % 0.1 % (0-2.0); EOS % 1.4 % (0-4.5); HEMATOCRIT 24.6 % (35.4-49); LYMPH % 4.6 % (8-40); MCH 31.5 pg (25.7-33.7); MCHC 32.4 g/dl (32.0-35.9); MEAN CELL VOLUME 97.4 fl (80-96); MEAN PLT VOLUME 10.8 fl (7.5-11.1); MONO % 12.5 % (3.8-10.2); NEUT % 81.4 % (42.8-82.8); PLATELET COUNT 145 K/MM3 (134-434); RBC 2.53 M/mm3 (4.00-5.60); RDW 20.4 % (11.9-15.9); WHITE BLOOD COUNT 10.3 K/mm3 (4.0-10.0)
[2017-10-15 07:57] LABS: CHLORIDE 106 mmol/L (98-107); POTASSIUM 3.3 mmol/L (3.5-5.1); SODIUM 144 mmol/L (136-145)
[2017-10-15 08:05] LABS: ANION GAP 8 (8-16); BLOOD UREA NITROGEN 21 mg/dL (7-18); CALCIUM 7.6 mg/dL (8.5-10.1); CO2 30 mmol/L (21-32); CREATININE 0.5 mg/dL (0.7-1.3); GLUCOSE,RANDOM 78 mg/dL (74-106)
[2017-10-15] MEDS: METOPROLOL SUCCINATE 50 MG TAB.SR.24H (FP) PO SCH ×2 (09:13→21:40)
[2017-10-15] MEDS: PREGABALIN 50 MG CAPSULE PO SCH ×2 (09:13→21:40)
[2017-10-15] MEDS: ENOXAPARIN NA (PORCINE) 40 MG/0.4 ML DISP.SYRIN SQ SCH (09:13)
[2017-10-15] MEDS: valACYclovir HCL 500 MG TABLET (FP) PO SCH (09:13)
[2017-10-15] MEDS: DEXAMETHASONE 4 MG TABLET (FP) PO SCH (09:13)
[2017-10-15] MEDS: PANTOPRAZOLE 40 MG TABLET (FP) PO SCH (09:13)
[2017-10-15] MEDS: PAROXETINE HCL 20 MG, PAROXETINE HCL 10 MG PO SCH (09:14)
[2017-10-15] MEDS: LENALIDOMIDE 15 MG PO SCH (09:14)
[2017-10-15] MEDS ORDERED: POTASSIUM CHLORIDE ORAL LIQUID 20 MEQ/15 ML PO ONE (09:30)
[2017-10-15] MEDS ORDERED: PT OWN MED DRAWER 7, Y5N ONE ×3 (09:33→17:06)
--- NOTE | 2017-10-15 12:03 | PN ---
Progress Note, Physician History of Present Illness: No further near or true syncope, s/p right long IM gamma nail with right hip post-op discomfort. He denies chest pain, palpitation, orthopnea. Episodes of self-limited rapid PAF->SR. - Current Medication List Current Medications: Active Medications Acetaminophen (Tylenol -) 650 mg PO Q6H PRN PRN Reason: FEVER Last Admin: 10/15/17 03:02 Dose: 650 mg Dexamethasone (Decadron -) 20 mg PO SuWe@1000 [facility] Last Admin: 10/15/17 09:13 Dose: 20 mg Docusate Sodium (Colace -) 100 mg PO BID PRN PRN Reason: CONSTIPATION Enoxaparin Sodium (Lovenox -) 40 mg SQ DAILY [facility] Last Admin: 10/15/17 09:13 Dose: 40 mg Hydromorphone HCl (Dilaudid Injection -) 1 mg IVPB Q6H PRN PRN Reason: PAIN Last Admin: 10/15/17 05:54 Dose: 1 mg Cefazolin Sodium (Ancef -) 1 gm in 10 mls @ 120 mls/hr IVPUSH Q8H-IV [facility] Last Admin: 10/15/17 09:13 Dose: 120 mls/hr Sodium Chloride (Normal Saline -) 1,000 mls @ 100 mls/hr IV ASDIR [facility] Last Admin: 10/15/17 05:59 Dose: 100 mls/hr Levothyroxine Sodium (Synthroid -) 50 mcg PO DAILY@0700 [facility] Last Admin: 10/15/17 06:00 Dose: 50 mcg Metoprolol Succinate (Toprol Xl -) 50 mg PO BID [facility] Last Admin: 10/15/17 09:13 Dose: 50 mg Non-Formulary Medication (Lenalidomide [Revlimid]) 15 mg PO DAILY [facility] Last Admin: 10/15/17 09:14 Dose: 15 mg Ondansetron HCl (Zofran Injection) 4 mg IVPUSH Q6H PRN PRN Reason: NAUSEA Pantoprazole Sodium (Protonix -) 40 mg PO DAILY [facility] Last Admin: 10/15/17 09:13 Dose: 40 mg Paroxetine HCl 20 mg/ (Paroxetine HCl 10 mg) 30 mg PO DAILY [facility] Last Admin: 10/15/17 09:14 Dose: 30 mg Pregabalin (Lyrica -) 50 mg PO BID [facility] Last Admin: 10/15/17 09:13 Dose: 50 mg Valacyclovir HCl (Valtrex -) 500 mg PO DAILY [facility] Last Admin: 10/15/17 09:13 Dose: 500 mg - Objective Vital Signs: Vital Signs Temperature 98.2 F 10/15/17 05:53 Pulse Rate 67 10/15/17 05:53 Respiratory Rate 18 10/15/17 05:53 Blood Pressure 175/92 10/15/17 05:53 O2 Sat by Pulse Oximetry (%) 94 L 10/14/17 21:00 Constitutional: Yes: No Distress, Calm, Thin Neck: Yes: Supple, Tenderness Cardiovascular: Yes: Regular Rate and Rhythm Respiratory: Yes: Regular, CTA Bilaterally Gastrointestinal: Yes: Normal Bowel Sounds, Soft Edema: No Labs: CBC, BMP 10/15/17 05:34 10/15/17 05:34 INR, PTT INR 1.33 (0.82-1.09) H 10/08/17 06:27 - ....Imaging EKG: Report Reviewed (Tele: PAF->SR) Problem List - Problems (1) Pathological fracture, right femur, initial encounter for fracture Code(s): M84.451A - PATHOLOGICAL FRACTURE, RIGHT FEMUR, INIT ENCNTR FOR FRACTURE (2) HTN (hypertension) Code(s): I10 - ESSENTIAL (PRIMARY) HYPERTENSION Qualifiers: Hypertension type: essential hypertension Qualified Code(s): I10 - Essential (primary) hypertension (3) Multiple myeloma Code(s): C90.00 - MULTIPLE MYELOMA NOT HAVING ACHIEVED REMISSION Qualifiers: Multiple myeloma remission status: not in remission Qualified Code(s): C90.00 - Multiple myeloma not having achieved remission (4) PAF (paroxysmal atrial fibrillation) Code(s): I48.0 - PAROXYSMAL ATRIAL FIBRILLATION (5) PSVT (paroxysmal supraventricular tachycardia) Code(s): I47.1 - SUPRAVENTRICULAR TACHYCARDIA (6) Syncope Code(s): R55 - SYNCOPE AND COLLAPSE Qualifiers: Syncope type: vasovagal syncope Qualified Code(s): R55 - Syncope and collapse (7) Anticoagulant long-term use Code(s): Z79.01 - RESIDENTIAL (CURRENT) USE OF ANTICOAGULANTS (8) Pelvic hematoma, male Code(s): N50.1 - VASCULAR DISORDERS OF MALE GENITAL ORGANS (9) Femur fracture Code(s): S72.90XA - UNSP FRACTURE OF UNSP FEMUR, INIT ENCNTR FOR CLOSED FRACTURE Qualifiers: Encounter type: subsequent encounter Assessment/Plan 1. Recurrent syncope with orthostatic hypotension - suggestive of vasovagal/ neurocardiogenic, probable autonomic dysfunction and labile hypertension referable to XRT to right carotid sinus body 2. Post right long IM gamma nail 10/10/2017 for pathologic fracture right proximal femur due to multiple myeloma 3. Paroxysmal atrial fibrillation currently in sinus rhythm with [id number] score of 3 on A/C with NOAC's, therapy on hold 4. History of PSVT currently in sinus rhythm 5. Non obstructive CAD, angina pectoris 6. Diastolic LV dysfunction with class 0-I NYHA classification LV failure, compensated/euvolemic 7. HTN/HCVD 8. History of diverticular perforation with purulent peritonitis post exploratory laparotomy with sigmoid resection, end colostomy and abdominal washout 9. History of multiple myeloma 10. 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 Anemia 12. Hypothyroidism PLAN: 1. Continue Toprol XL 50 bid 2. Resume Eliquis 5 bid with close monitoring of CBC, maintain Hg equal or > 8.0 3. Resume Diovan 80 qd hemodynamics permitting 4. Pain management as per the primary team 5. PT as tolerated, analgesia as needed 6. Abx course per ID 7. DVT and GI prophylaxis
--- NOTE | 2017-10-15 12:35 | PN ---
Progress Note, Physician Chief Complaint: S/P Rt Femur Long Gamma IM nail for pathological fracture Post OP day 5th , pain is well controlled. Remained afebrile - Current Medication List Current Medications: Active Medications Acetaminophen (Tylenol -) 650 mg PO Q6H PRN PRN Reason: FEVER Last Admin: 10/15/17 03:02 Dose: 650 mg Apixaban (Eliquis -) 5 mg PO BID [facility] Dexamethasone (Decadron -) 20 mg PO SuWe@1000 [facility] Last Admin: 10/15/17 09:13 Dose: 20 mg Docusate Sodium (Colace -) 100 mg PO BID PRN PRN Reason: CONSTIPATION Hydromorphone HCl (Dilaudid Injection -) 1 mg IVPB Q6H PRN PRN Reason: PAIN Last Admin: 10/15/17 05:54 Dose: 1 mg Cefazolin Sodium (Ancef -) 1 gm in 10 mls @ 120 mls/hr IVPUSH Q8H-IV [facility] Last Admin: 10/15/17 09:13 Dose: 120 mls/hr Sodium Chloride (Normal Saline -) 1,000 mls @ 100 mls/hr IV ASDIR [facility] Last Admin: 10/15/17 05:59 Dose: 100 mls/hr Levothyroxine Sodium (Synthroid -) 50 mcg PO DAILY@0700 [facility] Last Admin: 10/15/17 06:00 Dose: 50 mcg Metoprolol Succinate (Toprol Xl -) 50 mg PO BID [facility] Last Admin: 10/15/17 09:13 Dose: 50 mg Non-Formulary Medication (Lenalidomide [Revlimid]) 15 mg PO DAILY [facility] Last Admin: 10/15/17 09:14 Dose: 15 mg Ondansetron HCl (Zofran Injection) 4 mg IVPUSH Q6H PRN PRN Reason: NAUSEA Pantoprazole Sodium (Protonix -) 40 mg PO DAILY [facility] Last Admin: 10/15/17 09:13 Dose: 40 mg Paroxetine HCl 20 mg/ (Paroxetine HCl 10 mg) 30 mg PO DAILY [facility] Last Admin: 10/15/17 09:14 Dose: 30 mg Pregabalin (Lyrica -) 50 mg PO BID [facility] Last Admin: 10/15/17 09:13 Dose: 50 mg Valacyclovir HCl (Valtrex -) 500 mg PO DAILY [facility] Last Admin: 10/15/17 09:13 Dose: 500 mg Valsartan (Diovan -) 80 mg PO DAILY [facility] - Objective Vital Signs: Vital Signs Temperature 97.4 F L 10/15/17 09:00 Pulse Rate 75 10/15/17 09:00 Respiratory Rate 18 10/15/17 09:00 Blood Pressure 187/96 10/15/17 09:00 O2 Sat by Pulse Oximetry (%) 94 L 10/15/17 09:00 Comfortable not in distress pain well controlled HEENT: Mm moist, Anemia + NECK Supple, No JVd No Bruit CHEST: CTA B/L CVS: S1S2 R no m/g/r ABD: No distention,Colostomy at place, non tender Bs + EXT: S/P Long IM Nail, Pulses + [employer] HE[employer] 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 little serous discharge operating team is awre. Code(s): M84.451A - PATHOLOGICAL FRACTURE, RIGHT FEMUR, INIT ENCNTR FOR FRACTURE (2) HTN (hypertension) Assessment/Plan: Well controlled cont all home meds Code(s): I10 - ESSENTIAL (PRIMARY) HYPERTENSION Qualifiers: Hypertension type: essential hypertension Qualified Code(s): I10 - Essential (primary) hypertension (3) Paroxysmal A-fib Assessment/Plan: IIn NSR rate controlled off AC will discuss with orthopaedics to resume AC Code(s): I48.0 - PAROXYSMAL ATRIAL FIBRILLATION (4) Hypothyroidism Assessment/Plan: On Levothyroxine Code(s): E03.9 - HYPOTHYROIDISM, UNSPECIFIED Qualifiers: Hypothyroidism type: unspecified Qualified Code(s): E03.9 - Hypothyroidism , unspecified (5) Multiple myeloma Assessment/Plan: On Chemotherapy cont Home meds and Prophylactic Valcyclovir Code(s): C90.00 - MULTIPLE MYELOMA NOT HAVING ACHIEVED REMISSION (6) Pubic ramus fracture Assessment/Plan: Stable pain control Code(s): S32.599A - OTH FRACTURE OF UNSP PUBIS, INIT ENCNTR FOR CLOSED FRACTURE (7) Anemia, posthemorrhagic, acute Assessment/Plan: Improved after transfusion today Hb 8.3. Code(s): D62 - ACUTE POSTHEMORRHAGIC ANEMIA (8) UTI (urinary tract infection) Assessment/Plan: On Cefazolin day 5th as per culture and sensitivity. Code(s): N39.0 - URINARY TRACT INFECTION, SITE NOT SPECIFIED (9) Hypokalemia Assessment/Plan: Repleted F/U Mag and Phosphate level. Code(s): E87.6 - HYPOKALEMIA
[2017-10-15 12:44] LABS: MAGNESIUM 1.6 mg/dL (1.8-2.4)
--- NOTE | 2017-10-15 15:44 | PN ---
Progress Note, Physician - Current Medication List Current Medications: Active Medications Acetaminophen (Tylenol -) 650 mg PO Q6H PRN PRN Reason: FEVER Last Admin: 10/15/17 03:02 Dose: 650 mg Apixaban (Eliquis -) 5 mg PO BID [facility] Dexamethasone (Decadron -) 20 mg PO SuWe@1000 [facility] Last Admin: 10/15/17 09:13 Dose: 20 mg Docusate Sodium (Colace -) 100 mg PO BID PRN PRN Reason: CONSTIPATION Hydromorphone HCl (Dilaudid Injection -) 1 mg IVPB Q6H PRN PRN Reason: PAIN Last Admin: 10/15/17 14:31 Dose: 1 mg Cefazolin Sodium (Ancef -) 1 gm in 10 mls @ 120 mls/hr IVPUSH Q8H-IV [facility] Last Admin: 10/15/17 09:13 Dose: 120 mls/hr Sodium Chloride (Normal Saline -) 1,000 mls @ 100 mls/hr IV ASDIR [facility] Last Admin: 10/15/17 15:18 Dose: Not Given Levothyroxine Sodium (Synthroid -) 50 mcg PO DAILY@0700 [facility] Last Admin: 10/15/17 06:00 Dose: 50 mcg Metoprolol Succinate (Toprol Xl -) 50 mg PO BID [facility] Last Admin: 10/15/17 09:13 Dose: 50 mg Non-Formulary Medication (Lenalidomide [Revlimid]) 15 mg PO DAILY [facility] Last Admin: 10/15/17 09:14 Dose: 15 mg Ondansetron HCl (Zofran Injection) 4 mg IVPUSH Q6H PRN PRN Reason: NAUSEA Pantoprazole Sodium (Protonix -) 40 mg PO DAILY [facility] Last Admin: 10/15/17 09:13 Dose: 40 mg Paroxetine HCl 20 mg/ (Paroxetine HCl 10 mg) 30 mg PO DAILY [facility] Last Admin: 10/15/17 09:14 Dose: 30 mg Pregabalin (Lyrica -) 50 mg PO BID [facility] Last Admin: 10/15/17 09:13 Dose: 50 mg Valacyclovir HCl (Valtrex -) 500 mg PO DAILY [facility] Last Admin: 10/15/17 09:13 Dose: 500 mg Valsartan (Diovan -) 80 mg PO DAILY [facility] - Objective Vital Signs: Vital Signs Temperature 98.1 F 10/15/17 14:24 Pulse Rate 75 10/15/17 14:24 Respiratory Rate 18 10/15/17 14:24 Blood Pressure 164/98 10/15/17 14:24 O2 Sat by Pulse Oximetry (%) 94 L 10/15/17 09:00 Labs: CBC, BMP 10/15/17 05:34 10/15/17 05:34 INR, PTT INR 1.33 (0.82-1.09) H 10/08/17 06:27
[2017-10-15] MEDS: VALSARTAN 80 MG TABLET (UD) PO SCH (17:23)
[2017-10-15] MEDS: APIXABAN 5 MG TABLET PO SCH (21:40)
[2017-10-16] MEDS: CEFAZOLIN 1 GM PUSH 1 GM/10 ML DISP.SYRIN IVPUSH SCH ×2 (02:28→09:51)
[2017-10-16] MEDS: SODIUM CHLORIDE 1,000 ML IV SCH (06:10)
[2017-10-16] MEDS: LEVOTHYROXINE NA 50 MCG TABLET (FP) PO SCH (06:10)
[2017-10-16] MEDS: HYDROmorphone HCL CARPU-JECT 2 MG/1 ML DISP.SYRIN IVPB PRN (06:14)
--- NOTE | 2017-10-16 09:30 | PN ---
Progress Note, Physician Chief Complaint: Events noted Complains of intermittent right hip pain Episodes of narrow complex tachycardia suggestive of PAF with RVR vs. PSVT History of Present Illness: Patient was seen and examined. Awake and alert. Chart was reviewed Denies chest pain, SOB or palpitations As outlined above - Current Medication List Current Medications: Active Medications Acetaminophen (Tylenol -) 650 mg PO Q6H PRN PRN Reason: FEVER Last Admin: 10/15/17 03:02 Dose: 650 mg Apixaban (Eliquis -) 5 mg PO BID [facility] Last Admin: 10/15/17 21:40 Dose: 5 mg Dexamethasone (Decadron -) 20 mg PO SuWe@1000 [facility] Last Admin: 10/15/17 09:13 Dose: 20 mg Docusate Sodium (Colace -) 100 mg PO BID PRN PRN Reason: CONSTIPATION Hydromorphone HCl (Dilaudid Injection -) 1 mg IVPB Q6H PRN PRN Reason: PAIN Last Admin: 10/16/17 06:14 Dose: 1 mg Cefazolin Sodium (Ancef -) 1 gm in 10 mls @ 120 mls/hr IVPUSH Q8H-IV [facility] Last Admin: 10/16/17 02:28 Dose: 120 mls/hr Sodium Chloride (Normal Saline -) 1,000 mls @ 100 mls/hr IV ASDIR [facility] Last Admin: 10/16/17 06:10 Dose: 100 mls/hr Levothyroxine Sodium (Synthroid -) 50 mcg PO DAILY@0700 [facility] Last Admin: 10/16/17 06:10 Dose: 50 mcg Metoprolol Succinate (Toprol Xl -) 50 mg PO BID [facility] Last Admin: 10/15/17 21:40 Dose: 50 mg Non-Formulary Medication (Lenalidomide [Revlimid]) 15 mg PO DAILY [facility] Last Admin: 10/15/17 09:14 Dose: 15 mg Ondansetron HCl (Zofran Injection) 4 mg IVPUSH Q6H PRN PRN Reason: NAUSEA Pantoprazole Sodium (Protonix -) 40 mg PO DAILY [facility] Last Admin: 10/15/17 09:13 Dose: 40 mg Paroxetine HCl 20 mg/ (Paroxetine HCl 10 mg) 30 mg PO DAILY [facility] Last Admin: 10/15/17 09:14 Dose: 30 mg Pregabalin (Lyrica -) 50 mg PO BID [facility] Last Admin: 10/15/17 21:40 Dose: 50 mg Valacyclovir HCl (Valtrex -) 500 mg PO DAILY [facility] Last Admin: 10/15/17 09:13 Dose: 500 mg Valsartan (Diovan -) 80 mg PO DAILY [facility] Last Admin: 10/15/17 17:23 Dose: 80 mg - Objective Vital Signs: Vital Signs Temperature 97.6 F 10/16/17 06:00 Pulse Rate 73 10/16/17 06:00 Respiratory Rate 16 10/16/17 06:00 Blood Pressure 187/94 10/16/17 06:00 O2 Sat by Pulse Oximetry (%) 95 10/15/17 21:00 Constitutional: Yes: Well Nourished HENT: Yes: Atraumatic Neck: Yes: Supple Cardiovascular: Yes: Regular Rate and Rhythm, S1, S2 Respiratory: Yes: CTA Bilaterally Gastrointestinal: Yes: Normal Bowel Sounds, Soft. No: Tenderness Edema: No Labs: CBC, BMP 10/15/17 05:34 10/15/17 05:34 Problem List - Problems (1) CHEPE (acute kidney injury) Code(s): N17.9 - ACUTE KIDNEY FAILURE, UNSPECIFIED (2) Anemia, posthemorrhagic, acute Code(s): D62 - ACUTE POSTHEMORRHAGIC ANEMIA (3) Femur fracture Code(s): S72.90XA - UNSP FRACTURE OF UNSP FEMUR, INIT ENCNTR FOR CLOSED FRACTURE Qualifiers: Encounter type: subsequent encounter (4) HTN (hypertension) Code(s): I10 - ESSENTIAL (PRIMARY) HYPERTENSION Qualifiers: Hypertension type: essential hypertension Qualified Code(s): I10 - Essential (primary) hypertension (5) Hypothyroidism Code(s): E03.9 - HYPOTHYROIDISM, UNSPECIFIED Qualifiers: Hypothyroidism type: unspecified Qualified Code(s): E03.9 - Hypothyroidism , unspecified (6) Paroxysmal A-fib Code(s): I48.0 - PAROXYSMAL ATRIAL FIBRILLATION (7) Pathological fracture, right femur, initial encounter for fracture Code(s): M84.451A - PATHOLOGICAL FRACTURE, RIGHT FEMUR, INIT ENCNTR FOR FRACTURE (8) Syncope and collapse Code(s): R55 - SYNCOPE AND COLLAPSE (9) Anemia Code(s): D64.9 - ANEMIA, UNSPECIFIED Qualifiers: Anemia type: unspecified type Qualified Code(s): D64.9 - Anemia, unspecified (10) CAD (coronary artery disease) Code(s): I25.10 - ATHSCL HEART DISEASE OF [place] CORONARY ARTERY W/O ANG PCTRS Qualifiers: Coronary Disease-Associated Artery/Lesion type: [place] artery [place] vs. transplanted heart: [place] heart Associated angina: without angina Qualified Code(s): I25.10 - Atherosclerotic heart disease of [place] coronary artery without angina pectoris (11) Multiple myeloma Code(s): C90.00 - MULTIPLE MYELOMA NOT HAVING ACHIEVED REMISSION Qualifiers: Multiple myeloma remission status: not in remission Qualified Code(s): C90.00 - Multiple myeloma not having achieved remission Assessment/Plan 1. Recurrent syncope with orthostatic hypotension - suggestive of vasovagal/ neurocardiogenic, possible autonomic dysfunction and labile hypertension referable to XRT to right carotid sinus body - currently hypertensive 2. Post right long IM gamma nail for pathologic fracture right proximal femur due to multiple myeloma with hematoma 3. PAF currently in sinus rhythm with [id number] score of 3 on A/C with NOAC - recurrent of PAF with RVR vs. #4 4. PSVT currently in sinus rhythm 5. History of diverticular perforation with purulent peritonitis post exploratory laparotomy with sigmoid resection, end colostomy and abdominal washout 6. Non obstructive CAD, angina pectoris 7. HTN 8. History of multiple myeloma 9. 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 Anemia post transfusion - currently with profound anemia, no active bleeding 11. Prolonged QTc resolved off Sotalol 12. Hypothyroidism 13. CHEPE PLAN: 1. Monitor Hgb/Hct 2. Continue Toprol XL but it may be increased to 75 BID, otherwise if PAF or PSVT continues to recur, may need to restart Sotalol with close monitoring of QTc. Other option is to use Amiodarone. 3. Up-titrate Valsartan and Amlodipine for BP elevation 4. Continue Eliquis 5 mg bid 5. Analgesia as needed Further plans are to follow Yury Hassan MD
[2017-10-16] MEDS: APIXABAN 5 MG TABLET PO SCH ×2 (09:51→23:10)
[2017-10-16] MEDS: VALSARTAN 80 MG TABLET (UD) PO SCH (09:52)
[2017-10-16] MEDS: PAROXETINE HCL 20 MG, PAROXETINE HCL 10 MG PO SCH (09:52)
[2017-10-16] MEDS: PANTOPRAZOLE 40 MG TABLET (FP) PO SCH (09:52)
[2017-10-16] MEDS: valACYclovir HCL 500 MG TABLET (FP) PO SCH (09:52)
[2017-10-16] MEDS: PREGABALIN 50 MG CAPSULE PO SCH ×2 (09:52→22:49)
[2017-10-16] MEDS: amLODIPine BESYLATE 5 MG TABLET (FP) PO SCH (09:59)
[2017-10-16] MEDS: METOPROLOL SUCCINATE 50 MG TAB.SR.24H (FP) PO SCH ×2 (09:59→22:49)
[2017-10-16] MEDS: LENALIDOMIDE 15 MG PO SCH (09:59)
--- NOTE | 2017-10-16 10:17 | PN ---
Progress Note (short form) - Note Progress Note: Pt seen and examined. He is s/p R Femur ORIF/Gamma Nail. Doing fine. Less pain RLE. Doing P.T. AVSS H/H low at 8.0/24.6 but not symptomatic RLE is NVI, good ROM at the right foot and ankle. Overall doing well. Can DC/Transfer to SNF from an orthopedic POV
[2017-10-16 10:25] LABS: BASO % 0.1 % (0-2.0); HEMOGLOBIN 8.5 GM/dL (11.7-16.9); LYMPH % 2.9 % (8-40); MCH 31.1 pg (25.7-33.7); MCHC 31.6 g/dl (32.0-35.9); MEAN CELL VOLUME 98.4 fl (80-96); MEAN PLT VOLUME 10.6 fl (7.5-11.1); MONO % 10.7 % (3.8-10.2); NEUT % 86.3 % (42.8-82.8); PLATELET COUNT 179 K/MM3 (134-434); RBC 2.74 M/mm3 (4.00-5.60); RDW 19.7 % (11.9-15.9); WHITE BLOOD COUNT 11.9 K/mm3 (4.0-10.0)
[2017-10-16 10:41] LABS: CHLORIDE 107 mmol/L (98-107); SODIUM 144 mmol/L (136-145)
[2017-10-16 10:52] LABS: ANION GAP 9 (8-16); BLOOD UREA NITROGEN 21 mg/dL (7-18); CALCIUM 7.8 mg/dL (8.5-10.1); CO2 28 mmol/L (21-32); CREATININE 0.5 mg/dL (0.7-1.3); GLUCOSE,RANDOM 110 mg/dL (74-106)
[2017-10-16] MEDS ORDERED: VALSARTAN 80 MG TABLET (UD) PO SCH (11:39)
[2017-10-16 11:44] LABS: MAGNESIUM 1.8 mg/dL (1.8-2.4)
--- NOTE | 2017-10-16 13:07 | DS ---
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 X3 non focal Labs: CBC, BMP 10/16/17 10:00 10/16/17 10:00 Laboratory Results - last 24 hr 10/16/17 10/16/17 10/16/17 10:00 10:00 10:00 WBC 11.9 H RBC 2.74 L Hgb 8.5 L Hct 27.0 L MCV 98.4 H MCH 31.1 MCHC 31.6 L RDW 19.7 H Plt Count 179 D MPV 10.6 Neutrophils % 86.3 H Lymphocytes % 2.9 L D Monocytes % 10.7 H Eosinophils % 0.0 D Basophils % 0.1 Sodium 144 Potassium 4.0 D Chloride 107 Carbon Dioxide 28 Anion Gap 9 BUN 21 H Creatinine 0.5 L Random Glucose 110 H D Calcium 7.8 L Magnesium 1.8 Cancelled Discharge Summary Reason For Visit: FRACTURE OF FEMUR Current Active Problems CHEPE (acute kidney injury) (Acute) Anemia, posthemorrhagic, acute (Acute) Anticoagulant long-term use (Acute) Elevated WBCs (Acute) Elevated lactic acid level (Acute) Femur fracture (Acute) Fever (Acute) HTN (hypertension) (Acute) Hypokalemia (Acute) Hypothyroidism (Acute) Multiple myeloma (Acute) Paroxysmal A-fib (Acute) Pathological fracture, right femur, initial encounter for fracture (Acute) Pelvic hematoma, male (Acute) Pre-operative cardiovascular examination (Acute) Pubic ramus fracture (Acute) Syncope and collapse (Acute) UTI (urinary tract infection) (Acute) Procedures: Principal: Rt Femur Gamma Nail Hospital Course: 77 M H/O hTN, Proxysmal Afib and PSVT, on AC, MM, T2DM, Hypercholesterolemia on treatment, poor gait present after an episode of syncope, as per patient Dizziness and fall with TLOC patient developed sever Rt Hip pain, couldn't get UP so came to Ed for evaluation, intial w/u sshows elevated TWBC + U Culture and Rt FeMur and Pubic rami fracture with pelvic wall hematoma, underwent Gamma nail insertion , completed abx for UTI rpt cultures are -ve, drop in H/H responded to PRBC transfusion X2, patient is evaluted by ID,Hematology and oncology team, Cardiology and Orthopedics, gradually improved Condition: Fair - Instructions Referrals: Caren Lopez MD [Primary Care Provider] - 2 Weeks Noel Wallace MD [Staff Physician] - 2 Weeks Umang Kaur MD [Staff Physician] - 2 Weeks Disposition: [facility] - Home Medications Comprehensive Discharge Medication List: Ambulatory Orders Apixaban [Eliquis -] 5 mg PO BID 10/07/17 Lenalidomide [Revlimid] 15 mg PO DAILY 10/07/17 Levothyroxine [Synthroid -] 50 mcg PO DAILY 10/07/17 Pantoprazole Sodium [Protonix -] 40 mg PO DAILY 10/07/17 Paroxetine HCl [Paxil -] 30 mg PO DAILY 10/07/17 Pregabalin [Lyrica -] 50 mg PO BID 10/07/17 Tamsulosin HCl [Flomax -] 0.4 mg PO DAILY 10/07/17 Valacyclovir HCl [Valtrex -] 500 mg PO DAILY 10/07/17 Acetaminophen [Tylenol .Regular Strength -] 650 mg PO Q6H PRN tablet 10/16/17 Amlodipine Besylate [Norvasc -] 5 mg PO DAILY tablet 10/16/17 Dexamethasone [Decadron -] 20 mg PO SuWe@1000 tablet 10/16/17 Docusate Sodium [Colace -] 100 mg PO BID PRN capsule 10/16/17 Metoprolol Succinate [Toprol XL -] 75 mg PO BID tab.sr.24h 10/16/17 Valsartan [Diovan] 160 mg PO DAILY tablet 10/16/17
[2017-10-16] MEDS ORDERED: VALSARTAN 80 MG TABLET (UD) PO ONE (14:30)
--- NOTE | 2017-10-16 14:36 | PN ---
Progress Note (short form) - Note Progress Note: Patient seen and examined events noted. c.o pain. OOB to chair O/E: Constitutional: Yes: Well Nourished, No Distress Eyes: Yes: Conjunctiva Clear HENT: Yes: Atraumatic Neck: Yes: Supple, Trachea Midline Cardiovascular: Yes: Regular Rate and Rhythm Respiratory: Yes: Regular Gastrointestinal: Yes: Normal Bowel Sounds, Soft Extremities: Yes: No CCE Edema: No Last Vital Signs Temp Pulse Resp BP Pulse Ox 98.3 F 77 20 147/88 96 10/16/17 14:00 10/16/17 14:00 10/16/17 14:00 10/16/17 14:00 10/16/17 09:00 CBC, BMP 10/16/17 10:00 10/16/17 10:00 Current Medications Generic Name Dose Route Start Last Admin Trade Name Freq PRN Reason Stop Dose Admin Acetaminophen 650 mg 10/12/17 18:36 10/15/17 03:02 Tylenol - PO 650 mg Q6H PRN Administration FEVER Amlodipine Besylate 5 mg 10/16/17 10:00 10/16/17 09:59 Norvasc - PO 5 mg DAILY [facility] Administration Apixaban 5 mg 10/15/17 22:00 10/16/17 09:51 Eliquis - PO 5 mg BID BERE Administration Dexamethasone 20 mg 10/12/17 17:45 10/15/17 09:13 Decadron - PO 20 mg SuWe@1000 [facility] Administration Docusate Sodium 100 mg 10/12/17 12:15 Colace - PO BID PRN CONSTIPATION Levothyroxine Sodium 50 mcg 10/11/17 07:00 10/16/17 06:10 Synthroid - PO 50 mcg DAILY@0700 [facility] Administration Magnesium Oxide 400 mg 10/16/17 22:00 Mag-Ox - PO BID BERE Metoprolol Succinate 75 mg 10/16/17 11:40 Toprol Xl - PO BID [facility] Non-Formulary Medication 15 mg 10/11/17 10:00 10/16/17 09:59 Lenalidomide [Revlimid] PO 15 mg DAILY [facility] Administration Ondansetron HCl 4 mg 10/10/17 13:59 Zofran Injection IVPUSH Q6H PRN NAUSEA Oxycodone HCl 5 mg 10/16/17 13:37 Roxicodone - PO Q6H PRN PAIN LEVEL 6-10 Pantoprazole Sodium 40 mg 10/11/17 10:00 10/16/17 09:52 Protonix - PO 40 mg DAILY [facility] Administration Paroxetine HCl 20 mg/ 30 mg 10/11/17 10:00 10/16/17 09:52 Paroxetine HCl 10 mg PO 30 mg DAILY [facility] Administration Pregabalin 50 mg 10/10/17 22:00 10/16/17 09:52 Lyrica - PO 50 mg BID [facility] Administration Valacyclovir HCl 500 mg 10/11/17 10:00 10/16/17 09:52 Valtrex - PO 500 mg DAILY [facility] Administration Valsartan 160 mg 10/16/17 11:39 Diovan - PO DAILY [facility] Fracture s/p fall: -s/p ORIF (pathological fracture) -pain control -PT Multiple Myeloma with extensive bony and spine involvement. -on RVD -c/w Revlimid -his dispo is to a SNF. Ordered Revlimid (one month supply- as per [facility] we cannot do more than that) today and requested expedited delivery. 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 She will also find out if the medication can be brought to SNF from his home once delivered. Weekly Dex 20mg to be given ( on Wednesdays) -Request: CBC/BMP/LFTs weekly from SNF and be faxed to [phone] pAF -on eliquis -hgb stable CHEPE improved
[2017-10-16] MEDS: oxyCODONE HCL 5 MG TABLET PO PRN ×2 (14:49→22:52)
[2017-10-16] MEDS: MAGNESIUM OXIDE 400 MG TABLET (FP) PO SCH ×2 (14:50→22:49)
[2017-10-16] MEDS: ACETAMINOPHEN 325 MG TABLET (FP) PO PRN ×2 (14:50→22:53)
[2017-10-16] MEDS: NYSTATIN 500,000 UNITS/5 ML SUSPENSION PO SCH ×2 (18:46→22:50)
[2017-10-16] MEDS ORDERED: PT OWN MED DRAWER 7, Y5N ONE (20:32)
--- NOTE | 2017-10-16 20:48 | PN ---
Progress Note, Physician Chief Complaint: S/P Rt Femur Long Gamma IM nail for pathological fracture Post OP day 6th , pain is well controlled. Remained afebrile - Current Medication List Current Medications: Active Medications Acetaminophen (Tylenol -) 650 mg PO Q6H PRN PRN Reason: FEVER Last Admin: 10/16/17 14:50 Dose: 650 mg Amlodipine Besylate (Norvasc -) 5 mg PO DAILY [facility] Last Admin: 10/16/17 09:59 Dose: 5 mg Apixaban (Eliquis -) 5 mg PO BID [facility] Last Admin: 10/16/17 09:51 Dose: 5 mg Dexamethasone (Decadron -) 20 mg PO SuWe@1000 [facility] Last Admin: 10/15/17 09:13 Dose: 20 mg Docusate Sodium (Colace -) 100 mg PO BID PRN PRN Reason: CONSTIPATION Levothyroxine Sodium (Synthroid -) 50 mcg PO DAILY@0700 [facility] Last Admin: 10/16/17 06:10 Dose: 50 mcg Magnesium Oxide (Mag-Ox -) 400 mg PO BID [facility] Last Admin: 10/16/17 14:50 Dose: 400 mg Metoprolol Succinate (Toprol Xl -) 75 mg PO BID [facility] Non-Formulary Medication (Lenalidomide [Revlimid]) 15 mg PO DAILY [facility] Last Admin: 10/16/17 09:59 Dose: 15 mg Nystatin (Nystatin Oral Suspension -) 500,000 units PO QID [facility] Last Admin: 10/16/17 18:46 Dose: 500,000 units Ondansetron HCl (Zofran Injection) 4 mg IVPUSH Q6H PRN PRN Reason: NAUSEA Oxycodone HCl (Roxicodone -) 5 mg PO Q6H PRN PRN Reason: PAIN LEVEL 6-10 Last Admin: 10/16/17 14:49 Dose: 5 mg Pantoprazole Sodium (Protonix -) 40 mg PO DAILY [facility] Last Admin: 10/16/17 09:52 Dose: 40 mg Paroxetine HCl 20 mg/ (Paroxetine HCl 10 mg) 30 mg PO DAILY [facility] Last Admin: 10/16/17 09:52 Dose: 30 mg Pregabalin (Lyrica -) 50 mg PO BID [facility] Last Admin: 10/16/17 09:52 Dose: 50 mg Valacyclovir HCl (Valtrex -) 500 mg PO DAILY [facility] Last Admin: 10/16/17 09:52 Dose: 500 mg Valsartan (Diovan -) 160 mg PO DAILY [facility] - Objective Vital Signs: Vital Signs Temperature 99.3 F 10/16/17 18:00 Pulse Rate 72 10/16/17 18:00 Respiratory Rate 20 10/16/17 18:00 Blood Pressure 145/91 10/16/17 18:00 O2 Sat by Pulse Oximetry (%) 96 10/16/17 09:00 Comfortable not in distress pain well controlled HEENT: Mm moist, Anemia + NECK Supple, No JVd No Bruit CHEST: CTA B/L CVS: S1S2 R no m/g/r ABD: No distention,Colostomy at place, non tender Bs + EXT: S/P Long Gamma IM Nail, Pulses + [employer]OT[employer]OOKER MACHINE: AOX3 non focal no interval changes Labs: CBC, BMP 10/16/17 10:00 10/16/17 10:00 INR, PTT INR 1.33 (0.82-1.09) H 10/08/17 06:27 Problem List - Problems (1) Pathological fracture, right femur, initial encounter for fracture Assessment/Plan: Post OP day 6th s/p Long IM Gamma nail, pain is well controlled, post Op management as per ortho team. little serous discharge operating team is awre. Code(s): M84.451A - PATHOLOGICAL FRACTURE, RIGHT FEMUR, INIT ENCNTR FOR FRACTURE (2) HTN (hypertension) Code(s): I10 - ESSENTIAL (PRIMARY) HYPERTENSION Qualifiers: Hypertension type: essential hypertension Qualified Code(s): I10 - Essential (primary) hypertension (3) Paroxysmal A-fib Assessment/Plan: In NSR resumed AC Code(s): I48.0 - PAROXYSMAL ATRIAL FIBRILLATION (4) Hypothyroidism Assessment/Plan: On Levothyroxine Code(s): E03.9 - HYPOTHYROIDISM, UNSPECIFIED Qualifiers: Hypothyroidism type: unspecified Qualified Code(s): E03.9 - Hypothyroidism , unspecified (5) Multiple myeloma Assessment/Plan: On Chemotherapy cont Home meds and Prophylactic Valcyclovir Code(s): C90.00 - MULTIPLE MYELOMA NOT HAVING ACHIEVED REMISSION (6) Pubic ramus fracture Assessment/Plan: Stable pain control Code(s): S32.599A - OTH FRACTURE OF UNSP PUBIS, INIT ENCNTR FOR CLOSED FRACTURE (7) Anemia, posthemorrhagic, acute Assessment/Plan: Improved after transfusion today Hb 8.5. Code(s): D62 - ACUTE POSTHEMORRHAGIC ANEMIA (8) UTI (urinary tract infection) Assessment/Plan: Completed abx rpt UA -ve. Code(s): N39.0 - URINARY TRACT INFECTION, SITE NOT SPECIFIED
[2017-10-17] MEDS: LEVOTHYROXINE NA 50 MCG TABLET (FP) PO SCH (07:00)
[2017-10-17 08:47] LABS: HEMATOCRIT 27.3 % (35.4-49); HEMOGLOBIN 8.6 GM/dL (11.7-16.9); MCH 31.3 pg (25.7-33.7); MCHC 31.6 g/dl (32.0-35.9); MEAN PLT VOLUME 10.1 fl (7.5-11.1); PLATELET COUNT 180 K/MM3 (134-434); RBC 2.76 M/mm3 (4.00-5.60); RDW 19.9 % (11.9-15.9); WHITE BLOOD COUNT 11.3 K/mm3 (4.0-10.0)
[2017-10-17] MEDS: ACETAMINOPHEN 325 MG TABLET (FP) PO PRN ×2 (08:48→15:12)
[2017-10-17] MEDS: oxyCODONE HCL 5 MG TABLET PO PRN ×2 (08:48→15:13)
[2017-10-17 09:10] LABS: ANION GAP 8 (8-16); BLOOD UREA NITROGEN 17 mg/dL (7-18); CALCIUM 7.3 mg/dL (8.5-10.1); CHLORIDE 106 mmol/L (98-107); CO2 27 mmol/L (21-32); CREATININE 0.5 mg/dL (0.7-1.3); GLUCOSE,RANDOM 72 mg/dL (74-106); POTASSIUM 3.4 mmol/L (3.5-5.1); SODIUM 141 mmol/L (136-145)
[2017-10-17] MEDS ORDERED: PT OWN MED DRAWER 7, Y5N ONE ×3 (09:46→17:27)
[2017-10-17] MEDS: NYSTATIN 500,000 UNITS/5 ML SUSPENSION PO SCH ×3 (09:48→17:39)
[2017-10-17] MEDS: PREGABALIN 50 MG CAPSULE PO SCH (09:50)
[2017-10-17] MEDS: valACYclovir HCL 500 MG TABLET (FP) PO SCH (09:50)
[2017-10-17] MEDS: MAGNESIUM OXIDE 400 MG TABLET (FP) PO SCH (09:50)
[2017-10-17] MEDS: APIXABAN 5 MG TABLET PO SCH (09:50)
[2017-10-17] MEDS: amLODIPine BESYLATE 5 MG TABLET (FP) PO SCH (09:50)
[2017-10-17] MEDS: PANTOPRAZOLE 40 MG TABLET (FP) PO SCH (09:50)
[2017-10-17] MEDS: PAROXETINE HCL 20 MG, PAROXETINE HCL 10 MG PO SCH (09:50)
[2017-10-17] MEDS: METOPROLOL SUCCINATE 50 MG TAB.SR.24H (FP) PO SCH (09:51)
[2017-10-17] MEDS: LENALIDOMIDE 15 MG PO SCH (09:52)
--- NOTE | 2017-10-17 10:01 | PN ---
Progress Note (short form) - Note Progress Note: Ortho Pt seen and examined s/p right IM gamma nail Selected Entries 10/17/17 06:00 Temperature 98.0 F Pulse Rate 66 Respiratory 20 Rate Blood Pressure 152/80 Laboratory Tests 10/17/17 07:20 WBC 11.3 H Hgb 8.6 L Hct 27.3 L Plt Count 180 proximal 2 aquacel saturated, incisions c/d/i,calf soft, nt nvi a/p PT ttwb dvt ppx pain control d/c planning
--- NOTE | 2017-10-17 11:57 | PN ---
Progress Note, Physician History of Present Illness: Denies further near or true syncope, s/p right long IM gamma nail with right hip post-op discomfort. He denies chest pain, palpitation, orthopnea. - Current Medication List Current Medications: Active Medications Acetaminophen (Tylenol -) 650 mg PO Q6H PRN PRN Reason: FEVER Last Admin: 10/17/17 08:48 Dose: 650 mg Amlodipine Besylate (Norvasc -) 5 mg PO DAILY [facility] Last Admin: 10/17/17 09:50 Dose: 5 mg Apixaban (Eliquis -) 5 mg PO BID [facility] Last Admin: 10/17/17 09:50 Dose: 5 mg Dexamethasone (Decadron -) 20 mg PO SuWe@1000 [facility] Last Admin: 10/15/17 09:13 Dose: 20 mg Docusate Sodium (Colace -) 100 mg PO BID PRN PRN Reason: CONSTIPATION Levothyroxine Sodium (Synthroid -) 50 mcg PO DAILY@0700 [facility] Last Admin: 10/17/17 07:00 Dose: 50 mcg Magnesium Oxide (Mag-Ox -) 400 mg PO BID [facility] Last Admin: 10/17/17 09:50 Dose: 400 mg Metoprolol Succinate (Toprol Xl -) 75 mg PO BID [facility] Last Admin: 10/17/17 09:51 Dose: 75 mg Non-Formulary Medication (Lenalidomide [Revlimid]) 15 mg PO DAILY [facility] Last Admin: 10/17/17 09:52 Dose: 15 mg Nystatin (Nystatin Oral Suspension -) 500,000 units PO QID [facility] Last Admin: 10/17/17 09:48 Dose: 500,000 units Ondansetron HCl (Zofran Injection) 4 mg IVPUSH Q6H PRN PRN Reason: NAUSEA Oxycodone HCl (Roxicodone -) 5 mg PO Q6H PRN PRN Reason: PAIN LEVEL 6-10 Last Admin: 10/17/17 08:48 Dose: 5 mg Pantoprazole Sodium (Protonix -) 40 mg PO DAILY [facility] Last Admin: 10/17/17 09:50 Dose: 40 mg Paroxetine HCl 20 mg/ (Paroxetine HCl 10 mg) 30 mg PO DAILY [facility] Last Admin: 10/17/17 09:50 Dose: 30 mg Pregabalin (Lyrica -) 50 mg PO BID [facility] Last Admin: 10/17/17 09:50 Dose: 50 mg Valacyclovir HCl (Valtrex -) 500 mg PO DAILY [facility] Last Admin: 10/17/17 09:50 Dose: 500 mg Valsartan (Diovan -) 160 mg PO DAILY [facility] Last Admin: 10/17/17 09:50 Dose: 160 mg - Objective Vital Signs: Vital Signs Temperature 98.2 F 10/17/17 10:00 Pulse Rate 69 10/17/17 10:00 Respiratory Rate 20 10/17/17 10:00 Blood Pressure 154/84 10/17/17 10:00 O2 Sat by Pulse Oximetry (%) 96 10/16/17 21:00 Constitutional: Yes: No Distress, Calm, Thin Neck: Yes: Supple Cardiovascular: Yes: Regular Rate and Rhythm Respiratory: Yes: Regular, Diminished Gastrointestinal: Yes: Normal Bowel Sounds, Soft Edema: No Labs: CBC, BMP 10/17/17 07:20 10/17/17 07:20 INR, PTT INR 1.33 (0.82-1.09) H 10/08/17 06:27 Problem List - Problems (1) Pathological fracture, right femur, initial encounter for fracture Code(s): M84.451A - PATHOLOGICAL FRACTURE, RIGHT FEMUR, INIT ENCNTR FOR FRACTURE (2) HTN (hypertension) Code(s): I10 - ESSENTIAL (PRIMARY) HYPERTENSION Qualifiers: Hypertension type: essential hypertension Qualified Code(s): I10 - Essential (primary) hypertension (3) Multiple myeloma Code(s): C90.00 - MULTIPLE MYELOMA NOT HAVING ACHIEVED REMISSION Qualifiers: Multiple myeloma remission status: not in remission Qualified Code(s): C90.00 - Multiple myeloma not having achieved remission (4) PAF (paroxysmal atrial fibrillation) Code(s): I48.0 - PAROXYSMAL ATRIAL FIBRILLATION (5) PSVT (paroxysmal supraventricular tachycardia) Code(s): I47.1 - SUPRAVENTRICULAR TACHYCARDIA (6) Syncope Code(s): R55 - SYNCOPE AND COLLAPSE Qualifiers: Syncope type: vasovagal syncope Qualified Code(s): R55 - Syncope and collapse (7) Anticoagulant long-term use Code(s): Z79.01 - PRISON (CURRENT) USE OF ANTICOAGULANTS (8) Pelvic hematoma, male Code(s): N50.1 - VASCULAR DISORDERS OF MALE GENITAL ORGANS (9) Femur fracture Code(s): S72.90XA - UNSP FRACTURE OF UNSP FEMUR, INIT ENCNTR FOR CLOSED FRACTURE Qualifiers: Encounter type: subsequent encounter Assessment/Plan 1. Recurrent syncope with orthostatic hypotension - suggestive of vasovagal/ neurocardiogenic, possible autonomic dysfunction and labile hypertension referable to XRT to right carotid sinus body - currently hypertensive 2. Post right long IM gamma nail for pathologic fracture right proximal femur due to multiple myeloma with hematoma 3. PAF currently in sinus rhythm with [id number] score of 3 on A/C with NOAC - recurrent of PAF with RVR vs. #4 4. PSVT currently in sinus rhythm 5. History of diverticular perforation with purulent peritonitis post exploratory laparotomy with sigmoid resection, end colostomy and abdominal washout 6. Non obstructive CAD, angina pectoris 7. HTN 8. History of multiple myeloma 9. 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 Anemia post transfusion - currently with profound anemia, no active bleeding 11. Prolonged QTc resolved off Sotalol 12. Hypothyroidism PLAN: 1. Continue Toprol XL 75 BID with uptitration as tolerated 2. Uptitrate Valsartan 160 qd and Amlodipine 5 qd for BP elevation 3. Continue Eliquis 5 mg bid 4. Analgesia as needed, PT->SNF
[2017-10-17 12:31] LABS: ADD RBC MORPHOLOGY YES
[2017-10-17 12:34] LABS: PLATELET ESTIMATE ADEQUATE
[2017-10-17 12:37] LABS: ANISOCYTOSIS 3+; MACROCYTOSIS 1+
[2017-10-17 14:38] VITALS: BP 136/79; PULSE 76; TEMP 97.8
[2017-10-17] MEDS ORDERED: TAMSULOSIN HCL 0.4 MG CAP.ER.24H (FP) PO ONE (15:00)
--- NOTE | 2017-10-17 16:05 | PN ---
Progress Note, Physician History of Present Illness: stable weak no complaints - Current Medication List Current Medications: Active Medications Acetaminophen (Tylenol -) 650 mg PO Q6H PRN PRN Reason: FEVER Last Admin: 10/17/17 15:12 Dose: 650 mg Amlodipine Besylate (Norvasc -) 5 mg PO DAILY [facility] Last Admin: 10/17/17 09:50 Dose: 5 mg Apixaban (Eliquis -) 5 mg PO BID [facility] Last Admin: 10/17/17 09:50 Dose: 5 mg Dexamethasone (Decadron -) 20 mg PO SuWe@1000 [facility] Last Admin: 10/15/17 09:13 Dose: 20 mg Docusate Sodium (Colace -) 100 mg PO BID PRN PRN Reason: CONSTIPATION Levothyroxine Sodium (Synthroid -) 50 mcg PO DAILY@0700 [facility] Last Admin: 10/17/17 07:00 Dose: 50 mcg Magnesium Oxide (Mag-Ox -) 400 mg PO BID [facility] Last Admin: 10/17/17 09:50 Dose: 400 mg Metoprolol Succinate (Toprol Xl -) 75 mg PO BID [facility] Last Admin: 10/17/17 09:51 Dose: 75 mg Non-Formulary Medication (Lenalidomide [Revlimid]) 15 mg PO DAILY [facility] Last Admin: 10/17/17 09:52 Dose: 15 mg Nystatin (Nystatin Oral Suspension -) 500,000 units PO QID [facility] Last Admin: 10/17/17 13:03 Dose: 500,000 units Ondansetron HCl (Zofran Injection) 4 mg IVPUSH Q6H PRN PRN Reason: NAUSEA Oxycodone HCl (Roxicodone -) 5 mg PO Q6H PRN PRN Reason: PAIN LEVEL 6-10 Last Admin: 10/17/17 15:13 Dose: 5 mg Pantoprazole Sodium (Protonix -) 40 mg PO DAILY [facility] Last Admin: 10/17/17 09:50 Dose: 40 mg Paroxetine HCl 20 mg/ (Paroxetine HCl 10 mg) 30 mg PO DAILY [facility] Last Admin: 10/17/17 09:50 Dose: 30 mg Pregabalin (Lyrica -) 50 mg PO BID [facility] Last Admin: 10/17/17 09:50 Dose: 50 mg Valacyclovir HCl (Valtrex -) 500 mg PO DAILY [facility] Last Admin: 10/17/17 09:50 Dose: 500 mg Valsartan (Diovan -) 160 mg PO DAILY [facility] Last Admin: 10/17/17 09:50 Dose: 160 mg - Objective Vital Signs: Vital Signs Temperature 97.8 F 10/17/17 14:00 Pulse Rate 76 10/17/17 14:00 Respiratory Rate 18 10/17/17 14:00 Blood Pressure 136/79 10/17/17 14:00 O2 Sat by Pulse Oximetry (%) 94 L 10/17/17 09:00 Constitutional: Yes: No Distress, Calm Cardiovascular: Yes: Regular Rate and Rhythm Respiratory: Yes: Regular, CTA Bilaterally Gastrointestinal: Yes: Normal Bowel Sounds, Soft Musculoskeletal: Yes: Other Extremities: Yes: Other Neurological: Yes: Alert, Oriented Psychiatric: Yes: Alert, Oriented Labs: CBC, BMP 10/17/17 07:20 10/17/17 07:20 INR, PTT INR 1.33 (0.82-1.09) H 10/08/17 06:27 Assessment/Plan Problem List - Problems (1) Pathological fracture, right femur, initial encounter for fracture Code(s): M84.451A - PATHOLOGICAL FRACTURE, RIGHT FEMUR, INIT ENCNTR FOR FRACTURE (2) HTN (hypertension) Code(s): I10 - ESSENTIAL (PRIMARY) HYPERTENSION Qualifiers: Hypertension type: essential hypertension Qualified Code(s): I10 - Essential (primary) hypertension (3) Multiple myeloma Code(s): C90.00 - MULTIPLE MYELOMA NOT HAVING ACHIEVED REMISSION Qualifiers: Multiple myeloma remission status: unspecified Qualified Code(s): C90.00 - Multiple myeloma not having achieved remission (4) PAF (paroxysmal atrial fibrillation) Code(s): I48.0 - PAROXYSMAL ATRIAL FIBRILLATION (5) PSVT (paroxysmal supraventricular tachycardia) Code(s): I47.1 - SUPRAVENTRICULAR TACHYCARDIA (6) Syncope Code(s): R55 - SYNCOPE AND COLLAPSE Qualifiers: Syncope type: vasovagal syncope Qualified Code(s): R55 - Syncope and collapse (7) Anticoagulant long-term use Code(s): Z79.01 - CUSTODIAL (CURRENT) USE OF ANTICOAGULANTS (8) Pre-operative cardiovascular examination Code(s): Z01.810 - ENCOUNTER FOR PREPROCEDURAL CARDIOVASCULAR EXAMINATION (9) Hypothyroidism Code(s): E03.9 - HYPOTHYROIDISM, UNSPECIFIED Qualifiers: Hypothyroidism type: unspecified Qualified Code(s): E03.9 - Hypothyroidism , unspecified (10) Pelvic hematoma, male Code(s): N50.1 - VASCULAR DISORDERS OF MALE GENITAL ORGANS (11) Femur fracture Code(s): S72.90XA - UNSP FRACTURE OF UNSP FEMUR, INIT ENCNTR FOR CLOSED FRACTURE Qualifiers: Encounter type: subsequent encounter 12 fever Assessment/Plan syncope with orthostatic hypotension - pathologic fracture right proximal femur due to MM with hematoma History of diverticular perforation t Non obstructive CAD, angina pectoris HTN History of multiple myeloma Head and neck CA with vertebral spine involvement post resection post radiation therapy and chemotherapy Anemia post transfusion Hypothyroidism . CHEPE plan off of abx wbc slight up will see how wbc bejaves rest as per primary
--- NOTE | 2017-10-17 16:05 | PN ---
Progress Note, Physician - Current Medication List Current Medications: Active Medications Acetaminophen (Tylenol -) 650 mg PO Q6H PRN PRN Reason: FEVER Last Admin: 10/17/17 15:12 Dose: 650 mg Amlodipine Besylate (Norvasc -) 5 mg PO DAILY [facility] [place] Last Admin: 10/17/17 09:50 Dose: 5 mg Apixaban (Eliquis -) 5 mg PO BID [facility] [place] Last Admin: 10/17/17 09:50 Dose: 5 mg Dexamethasone (Decadron -) 20 mg PO SuWe@1000 [facility] [place] Last Admin: 10/15/17 09:13 Dose: 20 mg Docusate Sodium (Colace -) 100 mg PO BID PRN PRN Reason: CONSTIPATION Levothyroxine Sodium (Synthroid -) 50 mcg PO DAILY@0700 [facility] [place] Last Admin: 10/17/17 07:00 Dose: 50 mcg Magnesium Oxide (Mag-Ox -) 400 mg PO BID [facility] [place] Last Admin: 10/17/17 09:50 Dose: 400 mg Metoprolol Succinate (Toprol Xl -) 75 mg PO BID [facility] [place] Last Admin: 10/17/17 09:51 Dose: 75 mg Non-Formulary Medication (Lenalidomide [Revlimid]) 15 mg PO DAILY [facility] [place] Last Admin: 10/17/17 09:52 Dose: 15 mg Nystatin (Nystatin Oral Suspension -) 500,000 units PO QID [facility] [place] Last Admin: 10/17/17 13:03 Dose: 500,000 units Ondansetron HCl (Zofran Injection) 4 mg IVPUSH Q6H PRN PRN Reason: NAUSEA Oxycodone HCl (Roxicodone -) 5 mg PO Q6H PRN PRN Reason: PAIN LEVEL 6-10 Last Admin: 10/17/17 15:13 Dose: 5 mg Pantoprazole Sodium (Protonix -) 40 mg PO DAILY [facility] [place] Last Admin: 10/17/17 09:50 Dose: 40 mg Paroxetine HCl 20 mg/ (Paroxetine HCl 10 mg) 30 mg PO DAILY [facility] [place] Last Admin: 10/17/17 09:50 Dose: 30 mg Pregabalin (Lyrica -) 50 mg PO BID [facility] [place] Last Admin: 10/17/17 09:50 Dose: 50 mg Valacyclovir HCl (Valtrex -) 500 mg PO DAILY [facility] [place] Last Admin: 10/17/17 09:50 Dose: 500 mg Valsartan (Diovan -) 160 mg PO DAILY [facility] Last Admin: 10/17/17 09:50 Dose: 160 mg - Objective Vital Signs: Vital Signs Temperature 97.8 F 10/17/17 14:00 Pulse Rate 76 10/17/17 14:00 Respiratory Rate 18 10/17/17 14:00 Blood Pressure 136/79 10/17/17 14:00 O2 Sat by Pulse Oximetry (%) 94 L 10/17/17 09:00 Labs: CBC, BMP 10/17/17 07:20 10/17/17 07:20 INR, PTT INR 1.33 (0.82-1.09) H 10/08/17 06:27
--- NOTE | 2017-10-17 19:38 | PN ---
Progress Note (short form) - Note Progress Note: Patient seen and examined Denies any complaints Last Vital Signs Temp Pulse Resp BP Pulse Ox 97.8 F 76 18 136/79 94 L 10/17/17 14:00 10/17/17 14:00 10/17/17 14:00 10/17/17 14:00 10/17/17 09:00 Cor: RSR, No murmurs, No gallops Lungs: Clear to P&A Abd: Soft, Normal bowel sounds, No organomegaly Ext:No significant edema Skin: No rashes, Integument intact Abnormal Lab Results 10/17/17 10/17/17 07:20 07:20 WBC 11.3 H RBC 2.76 L Hgb 8.6 L Hct 27.3 L MCV 99.0 H MCHC 31.6 L RDW 19.9 H Neutrophils % (Manual) 85.0 H Lymphocytes % (Manual) 4.0 L Potassium 3.4 L Creatinine 0.5 L Random Glucose 72 L D Calcium 7.3 L A/P Multiple myeloma - not in remission s/p IM gamma nail repair of pathologic femur fx anemia thrombocytopenia Right femur hematoma s/p transfusion of packed cells. Plan: Continue current revlimid dose monitor cbc high thrombtic risk ---on lovenox prophylaxis
== END 2017-10-17 19:17 | DRG 481 ==
LOC: JER 14:52 → JERBED 20:12 → J4S 10-08 15:34 → J6S 10-16 21:07
PROVIDERS: ADMIT Internal Medicine; ATTEND Internal Medicine
PROC: 30233N1 Transfusion of Nonautologous Red Blood Cells into Peripheral Vein, Percutaneous Approach (ICD-10-PCS; 2017-10-08)
PROC: 0QS606Z Reposition Right Upper Femur with Intramedullary Internal Fixation Device, Open Approach (ICD-10-PCS; principal; 2017-10-10 12:00)
DX: M84.451A Pathological fracture, right femur, initial encounter for fracture (principal); C90.00 Multiple myeloma not having achieved remission; E87.0 Hyperosmolality and hypernatremia; N17.9 Acute kidney failure, unspecified; I47.1 Supraventricular tachycardia; D62 Acute posthemorrhagic anemia; N39.0 Urinary tract infection, site not specified; C79.51 Secondary malignant neoplasm of bone; Z92.21 Personal history of antineoplastic chemotherapy; I25.10 Atherosclerotic heart disease of native coronary artery without angina pectoris; I48.0 Paroxysmal atrial fibrillation; S32.591A Other specified fracture of right pubis, initial encounter for closed fracture; Z93.3 Colostomy status; Z79.01 Long term (current) use of anticoagulants; E78.00 Pure hypercholesterolemia, unspecified; E03.9 Hypothyroidism, unspecified; I95.1 Orthostatic hypotension; D64.9 Anemia, unspecified; I45.81 Long QT syndrome; W17.89XA Other fall from one level to another, initial encounter; Y93.89 Activity, other specified; Y92.89 Other specified places as the place of occurrence of the external cause; Y99.8 Other external cause status; D69.6 Thrombocytopenia, unspecified; I12.9 Hypertensive chronic kidney disease with stage 1 through stage 4 chronic kidney disease, or unspecified chronic kidney disease; N18.9 Chronic kidney disease, unspecified; E87.6 Hypokalemia; N50.1 Vascular disorders of male genital organs
CPT/HCPCS: 36415; 36430; 70450-TC; 71045-TC; 72100-TC-FY; 73502-TC-LT; 73502-TC-RT; 73523-TC; 73552-TC-LT; 73552-TC-RT; 73590-TC-LT; 73590-TC-RT; 73610-TC-LT; 73610-TC-RT; 73630-TC-LT; 73630-TC-RT; 73700-TC-RT; 76000-TC; 80048; 80053; 80061; 81003; 81015; 82803; 83036; 83605; 83721; 83735; 84100; 84443; 84484; 85025; 85027; 85610; 85730; 86850; 86900; 86901; 86922; 87040; 87086; 87186; 93005; 93010; 94760; 97116-GP; 97162-GP; 99285-25; P9038; P9058

== ENCOUNTER 2018-06-13 16:27 | Inpatient (IN) | payer OTHER, BC ==
[2018-06-13 16:53] VITALS: BMI 26.6
--- NOTE | 2018-06-13 17:11 | PDOC ---
History of Present Illness <Mauricio Echevarria - Last Filed: 06/13/18 19:05> - General History Source: Patient Exam Limitations: Clinical Condition - History of Present Illness Initial Comments: 06/13/18 17:05 Patient is a 78M with history of multiple myeloma (on chemo), parotid cancer s/ p resection, hypothyroidism, afib (on eliquis), sigmoid colon perforation s/p colostomy bag, rib fractures (3 weeks ago) here today with lethargy. Patient's family reports that he has been eating less, wheezing, coughing and generally not acting like himself. Patient's states that he had a temperature of 100.8 at home, and was given tylenol yesterday. Patient gives a poor history and is not sure what brought him here, but he is alert and oriented. Patient denies pain. Patient's states that he is incontinent, but this is at his baseline. No issues with colostomy at this time. PCP: Gogo Hutchins Onc: [place] <Malik Hansen - Last Filed: 06/13/18 20:24> - General Chief Complaint: Lethargy Stated Complaint: SICK Time Seen by Provider: 06/13/18 16:38 Past History <Mauricio Echevarria - Last Filed: 06/13/18 19:05> - Past Medical History Anemia: Yes Asthma: No Cancer: Yes (multiple myeloma, melanoma, parotid) Cardiac Disorders: No CVA: No COPD: No CHF: No Dementia: No Diabetes: No GI Disorders: No Disorders: No HTN: Yes Hypercholesterolemia: No Liver Disease: No Seizures: No Thyroid Disease: No - Surgical History Abdominal Surgery: Yes (COLOSTOMY) Appendectomy: No Cardiac Surgery: No Cholecystectomy: No Lung Surgery: No Neurologic Surgery: No Orthopedic Surgery: Yes (VERTEBROPLASTY) - Immunization History Immunization Up to Date: Yes - Suicide/Smoking/Psychosocial Hx Smoking History: Never smoked Have you smoked in the past 12 months: No Number of Cigarettes Smoked Daily: 0 Information on smoking cessation initiated: No Hx Alcohol Use: No Drug/Substance Use Hx: No Substance Use Type: None Hx Substance Use Treatment: No <Malik Hansen - Last Filed: 06/13/18 20:24> - Past Medical History Allergies/Adverse Reactions: Allergies Allergy/AdvReac Type Severity Reaction Status Date / Time No Known Drug Allergies Allergy Verified 06/13/18 16:53 Home Medications: Ambulatory Orders Apixaban [Eliquis -] 5 mg PO BID 10/07/17 Lenalidomide [Revlimid] 15 mg PO DAILY 10/07/17 Levothyroxine [Synthroid -] 50 mcg PO DAILY 10/07/17 Pantoprazole Sodium [Protonix -] 40 mg PO DAILY 10/07/17 Paroxetine HCl [Paxil -] 30 mg PO DAILY 10/07/17 Pregabalin [Lyrica -] 50 mg PO BID 10/07/17 Tamsulosin HCl [Flomax -] 0.4 mg PO DAILY 10/07/17 Valacyclovir HCl [Valtrex -] 500 mg PO DAILY 10/07/17 Acetaminophen [Tylenol .Regular Strength -] 650 mg PO Q6H PRN tablet 10/16/17 Amlodipine Besylate [Norvasc -] 5 mg PO DAILY tablet 10/16/17 Dexamethasone [Decadron -] 20 mg PO SuWe@1000 tablet 10/16/17 Docusate Sodium [Colace -] 100 mg PO BID PRN capsule 10/16/17 Magnesium Oxide [Mag-Ox -] 400 mg PO BID tablet 10/16/17 Metoprolol Succinate [Toprol XL -] 75 mg PO BID tab.sr.24h 10/16/17 Oxycodone HCl/Acetaminophen [Percocet 5-325 mg Tablet] 1 combo PO Q6H PRN tablet MDD 4 10/16/17 Valsartan [Diovan] 160 mg PO DAILY tablet 10/16/17 Review of Systems - Review of Systems Comments:: 06/13/18 17:11 GENERAL/CONSTITUTIONAL: +fever +chills. + diffuse weakness. HEAD, EYES, EARS, NOSE AND THROAT: No change in vision. No sore throat. CARDIOVASCULAR: No chest pain +shortness of breath RESPIRATORY: +cough, +wheezing, No hemoptysis. GASTROINTESTINAL: No nausea, vomiting, diarrhea or constipation. GENITOURINARY: No dysuria, frequency, +incontinence MUSCULOSKELETAL: No joint or muscle swelling or pain. No neck or back pain. SKIN: No rash NEUROLOGIC: No headache, vertigo, loss of consciousness, or change in strength/ sensation. ENDOCRINE: No increased thirst. No abnormal weight change HEMATOLOGIC/LYMPHATIC: No anemia, easy bleeding, or history of blood clots. ALLERGIC/IMMUNOLOGIC: No hives or skin allergy. <JadeMalik - Last Filed: 06/13/18 20:24> *Physical Exam - Vital Signs Last Vital Signs Temp Pulse Resp BP Pulse Ox 99.4 F 90 16 110/81 98 06/13/18 17:05 06/13/18 16:30 06/13/18 16:30 06/13/18 16:30 06/13/18 16:54 <Mauricio Echevarria - Last Filed: 06/13/18 19:05> - Vital Signs Last Vital Signs Temp Pulse Resp BP Pulse Ox 99.4 F 90 16 110/81 98 06/13/18 16:30 06/13/18 16:30 06/13/18 16:30 06/13/18 16:30 06/13/18 16:54 - Physical Exam Comments: 06/13/18 17:12 GENERAL: Awake, alert, and fully oriented, requiring repeated questioning HEAD: No signs of trauma, R sided facial scar from parotid surgery, atraumatic EYES: R eye blind, wearing eye patch, reactive left pupil ENT: Auricles normal inspection, hearing grossly normal, nares patent, oropharynx clear without exudates. Moist mucosa NECK: Normal ROM, supple, no lymphadenopathy, JVD, or masses, no midline tenderness LUNGS: Gurgling when breathing, wheezing, crackles bilaterally, coughing at bedside HEART: Regular rate and rhythm, normal S1 and S2, no murmurs, rubs or gallops, peripheral pulses normal and equal bilaterally. ABDOMEN: Soft, +suprapubic tenderness, normoactive bowel sounds. No guarding, no rebound. No masses EXTREMITIES: Normal inspection, Normal range of motion, no edema. No clubbing or cyanosis. NEUROLOGICAL: R sided facial droop (chronic) SKIN: Warm, Dry, normal turgor, no rashes or lesions noted. <JadeMalik - Last Filed: 06/13/18 20:24> ED Treatment Course - LABORATORY CBC & Chemistry Diagram: 06/13/18 17:30 06/13/18 17:30 - ADDITIONAL ORDERS Additional order review: Laboratory Results 06/13/18 06/13/18 06/13/18 17:30 17:30 17:30 PT with INR INR Sodium Cancelled Potassium Cancelled Chloride Cancelled Carbon Dioxide Cancelled Anion Gap Cancelled BUN Cancelled Creatinine Cancelled Creat Clearance w eGFR Cancelled Random Glucose Cancelled Lactic Acid 2.8 H* Calcium Cancelled Total Bilirubin Cancelled AST Cancelled ALT Cancelled Alkaline Phosphatase Cancelled Troponin I < 0.02 B-Natriuretic Peptide Cancelled Total Protein Cancelled Albumin Cancelled 06/13/18 17:30 PT with INR 27.40 H INR 2.30 H Sodium Potassium Chloride Carbon Dioxide Anion Gap BUN Creatinine Creat Clearance w eGFR Random Glucose Lactic Acid Calcium Total Bilirubin AST ALT Alkaline Phosphatase Troponin I B-Natriuretic Peptide Total Protein Albumin 06/13/18 17:30 RBC 3.07 L MCV 100.1 H MCHC 32.9 RDW 17.8 H MPV 9.2 Neutrophils % 90.3 H Lymphocytes % 4.0 L D Monocytes % 3.8 Eosinophils % 1.2 D Basophils % 0.7 D - RADIOLOGY Radiograph Interpretation: 06/13/18 18:53 EXAM: CT brain without contrast HISTORY: AMS FINDINGS: Axial CT of the brain without contrast. No intracranial hemorrhage, mass effect, acute infarction seen, unless noted below. Partial opacification of right mastoid air cells. Metallic density at the right orbit, possible foreign body. IMPRESSION: Possible lacunar infarction at left side of kenzie, image 15/41, of uncertain age. Likely chronic ischemic changes are present. No hemorrhage or mass effect seen. See above. This CT scan was performed with one or more of the following dose optimization techniques: iterative reconstruction, automatic exposure control, and/or manual adjustment of mAs and kVp according to the patient's size. Individualized dose optimization techniques were used for this CT. Read by: Viktor Crawford MD <Mauricio Echevarria - Last Filed: 06/13/18 19:05> - LABORATORY CBC & Chemistry Diagram: 06/13/18 17:30 06/13/18 19:45 - RADIOLOGY Radiology Studies Ordered: Category Date Time Status HEAD CT WITHOUT CONTRAST [CT] Stat CT Scan 06/13/18 16:51 Ordered CHEST X-RAY PORTABLE* [RAD] Stat Radiology 06/13/18 16:50 Ordered <Malik Hansen - Last Filed: 06/13/18 20:24> Medical Decision Making - Medical Decision Making 06/13/18 19:[address] Deejay Tobias, neurologist software validation engineer, case was discussed. <Mauricio Echevarria - Last Filed: 06/13/18 19:05> - Medical Decision Making 06/13/18 17:16 Patient is 78M with history of multiple myeloma, parotid ca, afib, hypothyroidism, signmoid perf s/p colostomy here today with ams. Vitals normal and stable. Rectal temp 99.4. DDx includes, but is not limited to: pneumonia, uti, pyelo. Concerned for aspiration given patient's gurgling while breathing at rest. Septic workup initiated. 06/13/18 20:19 CXR shows ?right sided infiltrate, will treat possible aspiration/hospital pneumonia with vanc/zosyn. CBC normal. CMP reassuring. Lactic acid 2.8. Given 500cc fluids. Head CT shows lacunar infarct of indeterminant age. D/W Dr Tobias, patient does not need aspirin as he is on xarelto. Not a tpa candidate. Will see patient in morning. EKG shows normal sinus rhythm with rate of 89. No st elevations/depressions. Normal axis. No significant t wave abnormalities. Troponin undetectable. Admitted to Med/Surg via Dr Hutchins. <Malik Hansen - Last Filed: 06/13/18 20:24> *DC/Admit/Observation/Transfer - Attestations Scribe Attestion: 06/13/18 18:54 Documentation prepared by Mauricio Echevarria, acting as medical records auditor for Ebony Cortez MD. <Mauricio Echevarria - Last Filed: 06/13/18 19:05> - Discharge Dispostion Decision to Admit order: Yes <Malik Hansen - Last Filed: 06/13/18 20:24> Diagnosis at time of Disposition: Aspiration pneumonia - Discharge Dispostion Condition at time of disposition: Stable - Referrals Referrals: Sandra Lemons MD [Staff Physician] - - Patient Instructions - Post Discharge Activity
[2018-06-13 17:58] LABS: BASO % 0.7 % (0-2.0); EOS % 1.2 % (0-4.5); HEMATOCRIT 30.8 % (35.4-49); HEMOGLOBIN 10.1 GM/dL (11.7-16.9); MCH 32.9 pg (25.7-33.7); MCHC 32.9 g/dl (32.0-35.9); MEAN CELL VOLUME 100.1 fl (80-96); MEAN PLT VOLUME 9.2 fl (7.5-11.1); MONO % 3.8 % (3.8-10.2); NEUT % 90.3 % (42.8-82.8); PLATELET COUNT 247 K/MM3 (134-434); RBC 3.07 M/mm3 (4.00-5.60); RDW 17.8 % (11.9-15.9); WHITE BLOOD COUNT 9.1 K/mm3 (4.0-10.0)
[2018-06-13 18:10] LABS: INR 2.3 (0.83-1.09); PROTHROMBIN TIME (PATIENT) 27.4 SEC (9.7-13.0)
[2018-06-13 18:42] LABS: ANISOCYTOSIS 1+; OVALOCYTE 1+; PLATELET ESTIMATE ADEQUATE
[2018-06-13] MEDS ORDERED: VANCOMYCIN 1,000 MG in DEXTROSE 5%-WATER - 250 ML IVPB ONE (19:27)
[2018-06-13] MEDS ORDERED: PIPERACILLIN/TAZOB 3.375 GM 3.375 GM in DEXTROSE 5%-WATER - 50 ML IVPB ONE (19:28)
[2018-06-13] MEDS ORDERED: DOCUSATE SODIUM 100 MG CAPSULE (FP) PO PRN (19:29)
[2018-06-13] MEDS ORDERED: ACETAMINOPHEN 325 MG TABLET (FP) PO PRN (19:29)
--- NOTE | 2018-06-13 19:34 | PDOC ---
Attending Attestation - Resident Resident Name: Malik Hansen - ED Attending Attestation I have performed the following: I have examined & evaluated the patient, The case was reviewed & discussed with the resident, I agree w/resident's findings & plan, Exceptions are as noted - HPI HPI: 06/13/18 19:31 The patient is a 78 year old male, with a significant past medical history of multiple myeloma (on chemotherapy), parotid cancer (s/p resection), hypothyroidism, Afib (on Eliquis), sigmoid colon perforation (s/p colostomy bag) , rib fractures (3 weeks ago), who presents to the emergency department with lethargy. Patients family notes that he has been experiencing a cough with wheezing, decreased PO intake, and overall has not been acting as his normal self. As per patients , he had a fever of 100.8 degrees Fahrenheit yesterday which resolved with Tylenol. Patient is a poor historian thus, history was taken by family at bedside. Allergies: NKA Past surgical history: None reported. Social History: Nonsmoker. Denies EtOH use and recreational drug use. Primary Care Physician: Dr. Gogo Hutchins Oncologist: Dr. Wallace - Physicial Exam PE: 06/13/18 19:32 Agree with resident exam - Medical Decision Making 06/13/18 19:32 78yo M hx MMP including MM and AF on xarelto presents to the ED with AMS, fever. On exam, pt with rhoncherous BS. CTH reveals possible acute lacunar stroke. Pt possibly had stroke and aspiration, now with PNA. WIll cover pts empirically and admit. Case discussed by Dr. Hansen with Dr. Bar who recommends holding ASA as pt is on xarelto. 06/13/18 20:[address] Bowens by Dr. Hansen. Case discussed in detail with admitting physician including history, physical exam and ancillary studies. Admitting physician has assumed care for the patient, will follow all pending diagnostics and will complete the evaluation and treatment.
[2018-06-13 20:12] LABS: ALBUMIN 1.9 g/dl (3.4-5.0); ALK PHOS 85 U/L (45-117); ANION GAP 12 MMOL/L (8-16); BILIRUBIN,TOTAL 0.7 mg/dL (0.2-1); BLOOD UREA NITROGEN 24 mg/dL (7-18); CALCIUM 8.8 mg/dL (8.5-10.1); CHLORIDE 103 mmol/L (98-107); CO2 26 mmol/L (21-32); CREATININE 0.6 mg/dL (0.55-1.3); GLUCOSE,RANDOM 102 mg/dL (74-106); POTASSIUM 4.1 mmol/L (3.5-5.1); SGOT/AST 25 U/L (15-37); SGPT/ALT 50 U/L (13-61); SODIUM 140 mmol/L (136-145); TOT PROT 5.3 g/dl (6.4-8.2)
[2018-06-13] MEDS ORDERED: SODIUM CHLORIDE 500 ML IV STA (20:19)
[2018-06-13] MEDS ORDERED: PIPERACILLIN/TAZOB 3.375 GM 3.375 GM/50 ML BAG IVPB ONE (20:30)
[2018-06-13] MEDS ORDERED: VANCOMYCIN 1 GRAM (PRE-DOCKED) 1,000 MG/250 ML BAG IVPB ONE (20:30)
--- NOTE | 2018-06-13 22:54 | HP ---
Admitting History and Physical - Primary Care Physician PCP: Caren Lopez - Admission Chief Complaint: Gradually worsening weakness, cough and fever History of Present Illness: 78 yrs old mna multiple medical co-morbidities H/O HTn, Paroxysmal fib, chronic anemia, Parotid Tumor s/p resection Rt Facial N injury, Rt sided blindness, partial cord compression, urinary incontinence, Multiple Myeloma, gradually declining health frequent fall, brought in by to Ed for evaluation of 2 wks H/O gradually worsening weakness, cough, SOB, chest congestion , patient had a fall on 05/28 CXR shows rib fracture, noticed low grade gurgling chest sound brought to ED for evaluation, patient is hemodynamically stable looks lthrgic and chest sounds congested, considering aspiration pneumonia received IV zosyn and vancomycin History Source: Family Member - Past Medical History SCIENCE CONSULTANT: Yes: Syncope, Other (Residual right lower neuron facial palsy) Cardiovascular: Yes: AFIB, CAD, HTN, Hyperlipdemia, Other (PSVT) Pulmonary: Yes: Other (few ronchi mostly on Rt base). No: Bronchitis (no chronic sputum production says current sputum production isnew) Renal/: Yes: BPH, Neurogenic Bladder, UTI, Other Heme/Onc: Yes: Cancer (Parotid cancer, melanoma), Other (Multiple Myeloma) Infectious Disease: Yes: Other (fever possible aspiration pneumonia) ENT: Yes: Other (legally blind right eye) Dermatology: Yes: Melanoma - Past Surgical History Past Surgical History: Yes: Colostomy (For sigmoid colon resection after perforation) - Smoking History Smoking history: Never smoked Have you smoked in the past 12 months: No Aproximately how many cigarettes per day: 0 - Alcohol/Substance Use Hx Alcohol Use: No - Social History ADL: Support Services History of Recent Travel: No Home Medications - Allergies Allergies/Adverse Reactions: Allergies Allergy/AdvReac Type Severity Reaction Status Date / Time No Known Drug Allergies Allergy Verified 06/13/18 16:53 - Home Medications Home Medications: Ambulatory Orders Apixaban [Eliquis -] 5 mg PO BID 10/07/17 Lenalidomide [Revlimid] 15 mg PO DAILY 10/07/17 Levothyroxine [Synthroid -] 50 mcg PO DAILY 10/07/17 Pantoprazole Sodium [Protonix -] 40 mg PO DAILY 10/07/17 Paroxetine HCl [Paxil -] 30 mg PO DAILY 10/07/17 Pregabalin [Lyrica -] 75 mg PO BID 10/07/17 Tamsulosin HCl [Flomax -] 0.4 mg PO DAILY 10/07/17 Valacyclovir HCl [Valtrex -] 500 mg PO BID 10/07/17 Dexamethasone [Decadron -] 20 mg PO SuWe@1000 tablet 10/16/17 Magnesium Oxide [Mag-Ox -] 400 mg PO BID tablet 10/16/17 Oxycodone HCl/Acetaminophen [Percocet 5-325 mg Tablet] 1 combo PO Q6H PRN tablet MDD 4 10/16/17 Metoprolol Succinate 25 mg PO DAILY 06/13/18 Multivit-Min/FA/Lycopen/Lutein [Centrum Silver Tablet] 1 tab PO DAILY 06/13/18 Family Disease History - Family Disease History Family History: Unremarkable Review of Systems - Review of Systems Constitutional: reports: Fever, Lethargy, Loss of Appetite Eyes: denies: Blind Spots, Blurred Vision, Double Vision, Eye Pain HENT: denies: Difficult Swallowing, Ear Discharge, Ear Pain, Epistaxis Physical Examination Vital Signs: Vital Signs Temperature 98.1 F 06/13/18 22:10 Pulse Rate 86 06/13/18 22:10 Respiratory Rate 20 06/13/18 22:10 Blood Pressure 118/78 06/13/18 22:10 O2 Sat by Pulse Oximetry (%) 96 06/13/18 22:10 Elderly sick looking male c/o feeling weak and chest congestion. HEENT: Mm dry, RT eye Ocluder Rt facial droop at base line NECK Supple, No JVd No Bruit CHEST: B/L crepts CVS: S1S2 R no m/g/r ABD: colostomy at place, No distention, non tender Bs + EXT: Trace edema feet, pulses + SCIENCE CONSULTANT: alert Rt sided Infranuclear facial N otherwise non focal. DERM; Multiple echymoses Labs: CBC, BMP 06/13/18 17:30 06/13/18 19:45 CBC,CMP WBC 9.1 K/mm3 (4.0-10.0) 06/13/18 17:30 RBC 3.07 M/mm3 (4.00-5.60) L 06/13/18 17:30 Hgb 10.1 GM/dL (11.7-16.9) L 06/13/18 17:30 Hct 30.8 % (35.4-49) L 06/13/18 17:30 MCV 100.1 fl (80-96) H 06/13/18 17:30 MCH 32.9 pg (25.7-33.7) 06/13/18 17:30 MCHC 32.9 g/dl (32.0-35.9) 06/13/18 17:30 RDW 17.8 % (11.9-15.9) H 06/13/18 17:30 Plt Count 247 K/MM3 (134-434) D 06/13/18 17:30 MPV 9.2 fl (7.5-11.1) 06/13/18 17:30 Absolute Neuts (auto) 8.2 K/mm3 (1.5-8.0) H 06/13/18 17:30 Neutrophils % 90.3 % (42.8-82.8) H 06/13/18 17:30 Neutrophils % (Manual) 80.0 % (42.8-82.8) 06/13/18 17:30 Band Neutrophils % 6.0 % 06/13/18 17:30 Lymphocytes % 4.0 % (8-40) L D 06/13/18 17:30 Lymphocytes % (Manual) 8.0 % (8-40) D 06/13/18 17:30 Monocytes % 3.8 % (3.8-10.2) 06/13/18 17:30 Monocytes % (Manual) 6 % (3.8-10.2) 06/13/18 17:30 Eosinophils % 1.2 % (0-4.5) D 06/13/18 17:30 Basophils % 0.7 % (0-2.0) D 06/13/18 17:30 Nucleated RBC % 0 % (0-0) 06/13/18 17:30 Hypochromia 1+ 06/13/18 17:30 Platelet Estimate Adequate 06/13/18 17:30 Anisocytosis 1+ 06/13/18 17:30 Microcytosis 1+ 06/13/18 17:30 Ovalocytes 1+ 06/13/18 17:30 Sodium 140 mmol/L (136-145) 06/13/18 19:45 Potassium 4.1 mmol/L (3.5-5.1) 06/13/18 19:45 Chloride 103 mmol/L (98-107) 06/13/18 19:45 Carbon Dioxide 26 mmol/L (21-32) 06/13/18 19:45 Anion Gap 12 MMOL/L (8-16) 06/13/18 19:45 BUN 24 mg/dL (7-18) H 06/13/18 19:45 Creatinine 0.6 mg/dL (0.55-1.3) 06/13/18 19:45 Creat Clearance w eGFR > 60 (>60) 06/13/18 19:45 Random Glucose 102 mg/dL (74-106) 06/13/18 19:45 Lactic Acid 2.8 mmol/L (0.4-2.0) H* 06/13/18 17:30 Calcium 8.8 mg/dL (8.5-10.1) 06/13/18 19:45 Total Bilirubin 0.7 mg/dL (0.2-1) 06/13/18 19:45 AST 25 U/L (15-37) 06/13/18 19:45 ALT 50 U/L (13-61) 06/13/18 19:45 Alkaline Phosphatase 85 U/L (45-117) 06/13/18 19:45 Troponin I < 0.02 ng/ml (0.00-0.05) 06/13/18 17:30 B-Natriuretic Peptide Cancelled 06/13/18 17:30 Total Protein 5.3 g/dl (6.4-8.2) L 06/13/18 19:45 Albumin 1.9 g/dl (3.4-5.0) L 06/13/18 19:45 Imaging - Results X-ray: Report Reviewed (congested) EKG: Report Reviewed (89 NSR GA 194 QTC 457 axis [address] t changes) Problem List - Problems (1) Aspiration pneumonia Assessment/Plan: clinical picture is consistent with aspiration pneumonia considering on chemotherapy received vancomycin and zosyn will consult ID npo except ,meds f/u cultures Code(s): J69.0 - PNEUMONITIS DUE TO INHALATION OF FOOD AND VOMIT (2) Sepsis Assessment/Plan: elevated lactic asid with aspiration pneumonia F/U cultures and IV abx zosyn and Vancomycin Code(s): A41.9 - SEPSIS, UNSPECIFIED ORGANISM (3) Paroxysmal A-fib Assessment/Plan: intailly rate controlled cont AC Eliquis and Metoprolol 675 mg BID Cardiology consult Dr Garrett Code(s): I48.0 - PAROXYSMAL ATRIAL FIBRILLATION (4) HTN (hypertension) Assessment/Plan: Cont Home medications Code(s): I10 - ESSENTIAL (PRIMARY) HYPERTENSION Qualifiers: Hypertension type: essential hypertension Qualified Code(s): I10 - Essential (primary) hypertension (5) Anemia Assessment/Plan: Chronic H/H are stable Code(s): D64.9 - ANEMIA, UNSPECIFIED Qualifiers: Anemia type: unspecified type Qualified Code(s): D64.9 - Anemia, unspecified (6) Colostomy status Assessment/Plan: s/p colon perforation in the past Code(s): Z93.3 - COLOSTOMY STATUS
[2018-06-13] MEDS ORDERED: PREGABALIN 50 MG CAPSULE ONE (22:59)
[2018-06-13] MEDS: PREGABALIN 50 MG CAPSULE PO SCH (23:03)
[2018-06-13] MEDS ORDERED: METOPROLOL TARTRATE 5 MG/5 ML VIAL IVPUSH ONE (23:15)
[2018-06-13] MEDS: APIXABAN 5 MG TABLET PO SCH (23:38)
[2018-06-13] MEDS ORDERED: METOPROLOL TARTRATE 5 MG/5 ML VIAL ONE (23:51)
[2018-06-14] MEDS ORDERED: PIPERACILLIN/TAZOB 4.5 GM 4.5 GM in DEXTROSE 5%-WATER 100 ML IVPB SCH (02:00)
[2018-06-14] MEDS: PIPERACILLIN/TAZOB 4.5 GM 4.5 GM in DEXTROSE 5%-WATER 100 ML IVPB SCH ×2 (02:43→10:43)
[2018-06-14] MEDS ORDERED: PIPERACILLIN/TAZOB 4.5 GM 4.5 GM/100 ML BAG IVPB ONE ×2 (02:49→10:13)
[2018-06-14] MEDS ORDERED: dilTIAZem HCL 50 MG/10 ML - 10 ML VIAL IVPUSH ONE (05:07)
[2018-06-14] MEDS ORDERED: SODIUM CHLORIDE 0.9% 500 ML INFUS.BAG IV ONE (05:07)
[2018-06-14] MEDS ORDERED: dilTIAZem HCL 50 MG/10 ML - 10 ML VIAL ONE (05:58)
[2018-06-14 06:17] LABS: BASO % 0.5 % (0-2.0); EOS % 0.7 % (0-4.5); HEMATOCRIT 31.2 % (35.4-49); HEMOGLOBIN 10.1 GM/dL (11.7-16.9); LYMPH % 3.9 % (8-40); MCH 32.4 pg (25.7-33.7); MCHC 32.4 g/dl (32.0-35.9); MEAN CELL VOLUME 99.9 fl (80-96); MEAN PLT VOLUME 9.1 fl (7.5-11.1); NEUT % 91.9 % (42.8-82.8); PLATELET COUNT 232 K/MM3 (134-434); RBC 3.12 M/mm3 (4.00-5.60); RDW 17.9 % (11.9-15.9); WHITE BLOOD COUNT 9.1 K/mm3 (4.0-10.0)
[2018-06-14] MEDS: LEVOTHYROXINE NA 50 MCG TABLET (FP) PO SCH (07:07)
[2018-06-14 08:19] LABS: ALBUMIN 1.9 g/dl (3.4-5.0); ALK PHOS 75 U/L (45-117); ANION GAP 10 MMOL/L (8-16); BILIRUBIN,TOTAL 1.1 mg/dL (0.2-1); BLOOD UREA NITROGEN 24 mg/dL (7-18); CALCIUM 8.6 mg/dL (8.5-10.1); CHLORIDE 104 mmol/L (98-107); CO2 25 mmol/L (21-32); CREATININE 0.7 mg/dL (0.55-1.3); GLUCOSE,RANDOM 116 mg/dL (74-106); POTASSIUM 4.2 mmol/L (3.5-5.1); SGOT/AST 14 U/L (15-37); SGPT/ALT 38 U/L (13-61); SODIUM 139 mmol/L (136-145)
[2018-06-14] MEDS ORDERED: TAMSULOSIN HCL 0.4 MG CAP ONE (08:43)
[2018-06-14] MEDS: TAMSULOSIN HCL 0.4 MG CAP PO SCH (08:47)
[2018-06-14] MEDS ORDERED: LENALIDOMIDE 15 MG PO SCH (10:00)
[2018-06-14] MEDS ORDERED: DEXAMETHASONE SOD PHOSPHATE 10 MG/1 ML VIAL ONE (10:23)
[2018-06-14] MEDS: MAGNESIUM OXIDE 400 MG TABLET (FP) PO SCH ×2 (10:41→22:55)
[2018-06-14] MEDS: APIXABAN 5 MG TABLET PO SCH ×2 (10:41→22:54)
[2018-06-14] MEDS: PARoxetine HCL 20 MG TABLET (FP) PO SCH (10:41)
[2018-06-14] MEDS: VALSARTAN 160 MG TABLET (UD) PO SCH (10:41)
[2018-06-14] MEDS: DEXAMETHASONE 4 MG TABLET (FP) PO SCH (10:41)
[2018-06-14] MEDS: amLODIPine BESYLATE 5 MG TABLET (FP) PO SCH (10:41)
[2018-06-14] MEDS: PREGABALIN 50 MG CAPSULE PO SCH ×2 (10:41→22:52)
[2018-06-14] MEDS: PANTOPRAZOLE 40 MG TABLET (FP) PO SCH (10:42)
[2018-06-14] MEDS: valACYclovir HCL 500 MG TABLET (FP) PO SCH (10:42)
[2018-06-14 11:56] LABS: ANISOCYTOSIS 2+; MACROCYTOSIS 0; OVALOCYTE 2+; PLATELET ESTIMATE NORMAL; TARGET CELLS 1+
--- NOTE | 2018-06-14 14:02 | CON.ID ---
Consult - History of Present Illness History of Present Illness: 78 y.o. male with history of parotid CA s/p resection, MM on Renalidomide ( follows with Dr. Wallace) , Atrial fibrillation, CAD, HLD, sigmoid colon perforation s/p colostomy, hypothyroidism, femur fracture, and frequent falls with rib fractures presents due to extreme weakness/lethargy as per family at bedside. Pt has been having difficulty ambulating for months but noted to be extremely weak and not eating in the past week. reports that he was noted to be coughing and having occasional difficulty breathing. Temperature taken at home was 100.8F. No other specific complaints offered. In the ER he was noted to have low grade fevers, tachycardic, with elevated lactic acid level. Currently he is weak, without acute distress but can not recall recent events or provide further history himself. - History Source History Provided By: Patient, Family Member Limitations to Obtaining History: No Limitations - Past Medical History [employer]KHAND [employer]EDGE: Yes: Syncope, Other (Residual right lower neuron facial palsy) Cardio/Vascular: Yes: AFIB, CAD, HTN, Hyperlipdemia, Other (PSVT) Pulmonary: Yes: Other (few ronchi mostly on Rt base). No: Bronchitis (no chronic sputum production says current sputum production isnew) Renal/: Yes: BPH, Neurogenic Bladder, UTI, Other Infectious Disease: Yes: Other (fever possible aspiration pneumonia) ENT: Yes: Other (legally blind right eye) Dermatology: Yes: Melanoma - Past Surgical History Past Surgical History: Yes: Colostomy (For sigmoid colon resection after perforation) - Alcohol/Substance Use Hx Alcohol Use: No - Smoking History Smoking history: Never smoked Have you smoked in the past 12 months: No Aproximately how many cigarettes per day: 0 - Social History ADL: Support Services History of Recent Travel: No Home Medications - Allergies Allergies/Adverse Reactions: Allergies Allergy/AdvReac Type Severity Reaction Status Date / Time No Known Drug Allergies Allergy Verified 06/13/18 16:53 - Home Medications Home Medications: Ambulatory Orders Apixaban [Eliquis -] 5 mg PO BID 10/07/17 Lenalidomide [Revlimid] 15 mg PO DAILY 10/07/17 Levothyroxine [Synthroid -] 50 mcg PO DAILY 10/07/17 Pantoprazole Sodium [Protonix -] 40 mg PO DAILY 10/07/17 Paroxetine HCl [Paxil -] 30 mg PO DAILY 10/07/17 Pregabalin [Lyrica -] 75 mg PO BID 10/07/17 Tamsulosin HCl [Flomax -] 0.4 mg PO DAILY 10/07/17 Valacyclovir HCl [Valtrex -] 500 mg PO BID 10/07/17 Dexamethasone [Decadron -] 20 mg PO SuWe@1000 tablet 10/16/17 Magnesium Oxide [Mag-Ox -] 400 mg PO BID tablet 10/16/17 Oxycodone HCl/Acetaminophen [Percocet 5-325 mg Tablet] 1 combo PO Q6H PRN tablet MDD 4 10/16/17 Metoprolol Succinate 25 mg PO DAILY 06/13/18 Multivit-Min/FA/Lycopen/Lutein [Centrum Silver Tablet] 1 tab PO DAILY 06/13/18 Review of Systems - Review of Systems Constitutional: reports: Fever, Lethargy, Weakness Eyes: reports: Other (wearing eye patch) HENT: reports: No Symptoms Neck: reports: No Symptoms Cardiovascular: reports: No Symptoms Respiratory: reports: Cough Gastrointestinal: reports: No Symptoms Genitourinary: reports: No Symptoms Musculoskeletal: reports: No Symptoms Integumentary: reports: Bruising (eccymoses arms) Neurological: reports: Weakness Endocrine: reports: No Symptoms Hematology/Lymphatic: reports: No Symptoms Physical Exam Vital Signs: Vital Signs Temperature 97.9 F 06/14/18 06:05 Pulse Rate 82 06/14/18 07:21 Respiratory Rate 18 06/14/18 07:21 Blood Pressure 91/55 L 06/14/18 07:21 O2 Sat by Pulse Oximetry (%) 100 06/14/18 07:21 Constitutional: Yes: No Distress, Other (weak) HENT: Yes: Atraumatic, Normocephalic, Other Neck: Yes: Supple Cardiovascular: Yes: Regular Rate and Rhythm Respiratory: Yes: Other (poor inspiratory effort, shallow breathing) Gastrointestinal: Yes: Normal Bowel Sounds, Soft, Other (+colostomy) Renal/: Yes: WNL Musculoskeletal: Yes: Back Pain Integumentary: Yes: Bruising (arms) Neurological: Yes: Facial Droop (since parotid resection), Weakness Labs: CBC, BMP 06/14/18 05:30 06/14/18 07:30 Laboratory Tests 06/13/18 06/13/18 06/13/18 17:30 17:30 17:30 WBC 9.1 Corrected WBC (auto) RBC 3.07 L Hgb 10.1 L Hct 30.8 L MCV 100.1 H MCH 32.9 MCHC 32.9 RDW 17.8 H Plt Count 247 D MPV 9.2 Absolute Neuts (auto) 8.2 H Total Counted Neutrophils % 90.3 H Neutrophils % (Manual) 80.0 Band Neutrophils % 6.0 Lymphocytes % 4.0 L D Lymphocytes % (Manual) 8.0 D Monocytes % 3.8 Monocytes % (Manual) 6 Eosinophils % 1.2 D Eosinophils % (Manual) Basophils % 0.7 D Basophils % (Manual) Myelocytes % (Man) Promyelocytes % (Man) Blast Cells % (Manual) Nucleated RBC % 0 Metamyelocytes Differential Comment Hypersegmented Neuts Plasma Cells Smudge Cells Other Cell Type Hypochromia 1+ Toxic Granulation Dohle Bodies Bhanu Rods Platelet Estimate Adequate Platelet Comment Polychromasia Poikilocytosis Basophilic Stippling Anisocytosis 1+ Microcytosis 1+ Macrocytosis Spherocytes Siderocytes Sickle Cells Target Cells Tear Drop Cells Ovalocytes 1+ Stomatocytes Helmet Cells [place]Mutual Bodies [place] Rings [place] Cells Acanthocytes (Spur) Rouleaux Fragmented RBCs Schistocytes PT with INR 27.40 H INR 2.30 H Sodium Cancelled Potassium Cancelled Chloride Cancelled Carbon Dioxide Cancelled Anion Gap Cancelled BUN Cancelled Creatinine Cancelled Creat Clearance w eGFR Cancelled Random Glucose Cancelled Lactic Acid Calcium Cancelled Total Bilirubin Cancelled AST Cancelled ALT Cancelled Alkaline Phosphatase Cancelled Troponin I B-Natriuretic Peptide Cancelled Total Protein Cancelled Albumin Cancelled 06/13/18 06/13/18 06/13/18 17:30 17:30 19:45 WBC Corrected WBC (auto) RBC Hgb Hct MCV MCH MCHC RDW Plt Count MPV Absolute Neuts (auto) Total Counted Neutrophils % Neutrophils % (Manual) Band Neutrophils % Lymphocytes % Lymphocytes % (Manual) Monocytes % Monocytes % (Manual) Eosinophils % Eosinophils % (Manual) Basophils % Basophils % (Manual) Myelocytes % (Man) Promyelocytes % (Man) Blast Cells % (Manual) Nucleated RBC % Metamyelocytes Differential Comment Hypersegmented Neuts Plasma Cells Smudge Cells Other Cell Type Hypochromia Toxic Granulation Dohle Bodies Bhanu Rods Platelet Estimate Platelet Comment Polychromasia Poikilocytosis Basophilic Stippling Anisocytosis Microcytosis Macrocytosis Spherocytes Siderocytes Sickle Cells Target Cells Tear Drop Cells Ovalocytes Stomatocytes Helmet Cells [place]-Mutual Bodies [place] Rings Fide Cells Acanthocytes (Spur) Rouleaux Fragmented RBCs Schistocytes PT with INR INR Sodium 140 Potassium 4.1 Chloride 103 Carbon Dioxide 26 Anion Gap 12 BUN 24 H Creatinine 0.6 Creat Clearance w eGFR > 60 Random Glucose 102 Lactic Acid 2.8 H* Calcium 8.8 Total Bilirubin 0.7 AST 25 ALT 50 Alkaline Phosphatase 85 Troponin I < 0.02 B-Natriuretic Peptide Total Protein 5.3 L Albumin 1.9 L 06/14/18 06/14/18 06/14/18 05:30 06:00 07:30 WBC 9.1 Corrected WBC (auto) Loan Servicing Officer RBC 3.12 L Hgb 10.1 L Hct 31.2 L MCV 99.9 H MCH 32.4 MCHC 32.4 RDW 17.9 H Plt Count 232 MPV 9.1 Absolute Neuts (auto) 8.3 H Total Counted Loan Servicing Officer Neutrophils % 91.9 H Neutrophils % (Manual) 79.8 Band Neutrophils % 12.6 Lymphocytes % 3.9 L Lymphocytes % (Manual) 3.4 L D Monocytes % 3.0 L Monocytes % (Manual) 3 L Eosinophils % 0.7 Eosinophils % (Manual) 0.0 D Basophils % 0.5 Basophils % (Manual) 0.0 Myelocytes % (Man) 0 D Promyelocytes % (Man) 0 Blast Cells % (Manual) 0 Nucleated RBC % 0 Metamyelocytes 2 D Differential Comment Loan Servicing Officer Hypersegmented Neuts Loan Servicing Officer Plasma Cells Loan Servicing Officer Smudge Cells Loan Servicing Officer Other Cell Type Loan Servicing Officer Hypochromia 1+ Toxic Granulation Loan Servicing Officer Dohle Bodies Loan Servicing Officer Bhanu Rods Loan Servicing Officer Platelet Estimate Normal Platelet Comment Loan Servicing Officer Polychromasia 1+ Poikilocytosis 1+ Basophilic Stippling Loan Servicing Officer Anisocytosis 2+ Microcytosis 2+ Macrocytosis 0 Spherocytes Loan Servicing Officer Siderocytes Loan Servicing Officer Sickle Cells Loan Servicing Officer Target Cells 1+ Tear Drop Cells Loan Servicing Officer Ovalocytes 2+ Stomatocytes Loan Servicing Officer Helmet Cells Loan Servicing Officer [place]-Mutual Bodies Loan Servicing Officer [place] Rings Loan Servicing Officer Fide Cells Loan Servicing Officer Acanthocytes (Spur) Loan Servicing Officer Rouleaux Loan Servicing Officer Fragmented RBCs Loan Servicing Officer Schistocytes Loan Servicing Officer PT with INR INR Sodium Cancelled 139 Potassium Cancelled 4.2 Chloride Cancelled 104 Carbon Dioxide Cancelled 25 Anion Gap Cancelled 10 BUN Cancelled 24 H Creatinine Cancelled 0.7 Creat Clearance w eGFR Cancelled > 60 Random Glucose Cancelled 116 H Lactic Acid Calcium Cancelled 8.6 Total Bilirubin Cancelled 1.1 H AST Cancelled 14 L ALT Cancelled 38 Alkaline Phosphatase Cancelled 75 Troponin I B-Natriuretic Peptide Total Protein Cancelled 5.0 L Albumin Cancelled 1.9 L 06/14/18 07:30 WBC Corrected WBC (auto) RBC Hgb Hct MCV MCH MCHC RDW Plt Count MPV Absolute Neuts (auto) Total Counted Neutrophils % Neutrophils % (Manual) Band Neutrophils % Lymphocytes % Lymphocytes % (Manual) Monocytes % Monocytes % (Manual) Eosinophils % Eosinophils % (Manual) Basophils % Basophils % (Manual) Myelocytes % (Man) Promyelocytes % (Man) Blast Cells % (Manual) Nucleated RBC % Metamyelocytes Differential Comment Hypersegmented Neuts Plasma Cells Smudge Cells Other Cell Type Hypochromia Toxic Granulation Dohle Bodies Bhanu Rods Platelet Estimate Platelet Comment Polychromasia Poikilocytosis Basophilic Stippling Anisocytosis Microcytosis Macrocytosis Spherocytes Siderocytes Sickle Cells Target Cells Tear Drop Cells Ovalocytes Stomatocytes Helmet Cells [place]-Mutual Bodies [place] Rings Fide Cells Acanthocytes (Spur) Rouleaux Fragmented RBCs Schistocytes PT with INR INR Sodium Potassium Chloride Carbon Dioxide Anion Gap BUN Creatinine Creat Clearance w eGFR Random Glucose Lactic Acid 2.0 Calcium Total Bilirubin AST ALT Alkaline Phosphatase Troponin I B-Natriuretic Peptide Total Protein Albumin Imaging - Results Cat Scan: Report Reviewed (no obvious acute infarcts) Problem List - Problems (1) Sepsis Code(s): A41.9 - SEPSIS, UNSPECIFIED ORGANISM (2) CHEPE (acute kidney injury) Code(s): N17.9 - ACUTE KIDNEY FAILURE, UNSPECIFIED (3) Anemia Code(s): D64.9 - ANEMIA, UNSPECIFIED Qualifiers: Anemia type: unspecified type Qualified Code(s): D64.9 - Anemia, unspecified (4) CAD (coronary artery disease) Code(s): I25.10 - ATHSCL HEART DISEASE OF [place] CORONARY ARTERY W/O ANG PCTRS Qualifiers: Coronary Disease-Associated Artery/Lesion type: [place] artery [place] vs. transplanted heart: [place] heart Associated angina: without angina Qualified Code(s): I25.10 - Atherosclerotic heart disease of [place] coronary artery without angina pectoris (5) Elevated lactic acid level Code(s): R79.89 - OTHER SPECIFIED ABNORMAL FINDINGS OF BLOOD CHEMISTRY (6) Femur fracture Code(s): S72.90XA - UNSP FRACTURE OF UNSP FEMUR, INIT ENCNTR FOR CLOSED FRACTURE Qualifiers: Encounter type: subsequent encounter (7) Fever Code(s): R50.9 - FEVER, UNSPECIFIED Qualifiers: Encounter type: initial encounter (8) HTN (hypertension) Code(s): I10 - ESSENTIAL (PRIMARY) HYPERTENSION Qualifiers: Hypertension type: essential hypertension Qualified Code(s): I10 - Essential (primary) hypertension (9) History of open sigmoidectomy Code(s): Z98.89 - OTHER SPECIFIED POSTPROCEDURAL STATES * DO NOT USE * (10) Multiple myeloma Code(s): C90.00 - MULTIPLE MYELOMA NOT HAVING ACHIEVED REMISSION Qualifiers: Multiple myeloma remission status: not in remission Qualified Code(s): C90.00 - Multiple myeloma not having achieved remission (11) PAF (paroxysmal atrial fibrillation) Code(s): I48.0 - PAROXYSMAL ATRIAL FIBRILLATION (12) Perforated sigmoid colon Code(s): K63.1 - PERFORATION OF INTESTINE (NONTRAUMATIC) Assessment/Plan 78 y.o. male with history of parotid CA s/p resection, MM on Renalidomide , Atrial fibrillation, CAD, HLD, sigmoid colon perforation s/p colostomy, hypothyroidism, femur fracture, and frequent falls with rib fractures presents due to extreme weakness/lethargy, fever, cough with elevated lactate level, tachycardia Likely PNA - possible Aspiration Sepsis CHEPE MM Parotid CA s/p resection Sigmoid colon perforation s/p colostomy -- continue Zosyn empirically for now, valacyclovir -- f/u blood cultures -- monitor vitals, mental status -- aspiration precautions -- Oncology follow up will follow Thank you
--- NOTE | 2018-06-14 16:48 | PN ---
Progress Note, Physician Chief Complaint: At present comfortable, last night had an episode of Afib with RVR responded to Diltizem - Current Medication List Current Medications: Active Medications Acetaminophen (Tylenol -) 650 mg PO Q6H PRN PRN Reason: FEVER Amlodipine Besylate (Norvasc -) 5 mg PO DAILY [facility] Last Admin: 06/14/18 10:41 Dose: 5 mg Apixaban (Eliquis -) 5 mg PO BID [facility] Last Admin: 06/14/18 10:41 Dose: 5 mg Dexamethasone (Decadron -) 20 mg PO SuWe@1000 [facility] Last Admin: 06/14/18 10:41 Dose: 20 mg Docusate Sodium (Colace -) 100 mg PO Q12H PRN PRN Reason: CONSTIPATION Piperacillin Sod/Tazobactam (Sod 4.5 gm/ Dextrose) 100 mls @ 200 mls/hr IVPB Q8H-IV [facility]; Protocol Levothyroxine Sodium (Synthroid -) 50 mcg PO DAILY@0700 [facility] Last Admin: 06/14/18 07:07 Dose: 50 mcg Magnesium Oxide (Mag-Ox -) 400 mg PO BID [facility] Last Admin: 06/14/18 10:41 Dose: 400 mg Metoprolol Succinate (Toprol Xl -) 75 mg PO BID [facility] Last Admin: 06/14/18 10:41 Dose: 75 mg Non-Formulary Medication (Lenalidomide [Revlimid]) 15 mg PO DAILY [facility] Pantoprazole Sodium (Protonix -) 40 mg PO DAILY [facility] Last Admin: 06/14/18 10:42 Dose: 40 mg Paroxetine HCl (Paxil -) 30 mg PO DAILY [facility] Last Admin: 06/14/18 10:41 Dose: 30 mg Pregabalin (Lyrica -) 50 mg PO BID [facility] Last Admin: 06/14/18 10:41 Dose: Not Given Tamsulosin HCl (Flomax -) 0.4 mg PO DAILY@0830 [facility] Last Admin: 06/14/18 08:47 Dose: 0.4 mg Valacyclovir HCl (Valtrex -) 500 mg PO DAILY [facility] Last Admin: 06/14/18 10:42 Dose: 500 mg Valsartan (Diovan -) 160 mg PO DAILY [facility] Last Admin: 06/14/18 10:41 Dose: 160 mg - Objective Vital Signs: Vital Signs Temperature 97.9 F 06/14/18 06:05 Pulse Rate 82 06/14/18 07:21 Respiratory Rate 18 06/14/18 07:21 Blood Pressure 91/55 L 06/14/18 07:21 O2 Sat by Pulse Oximetry (%) 100 06/14/18 07:21 Elderly sick looking male c/o feeling weak and chest congestion. 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 Labs: CBC, BMP 06/14/18 05:30 06/14/18 07:30 INR, PTT INR 2.30 (0.83-1.09) H 06/13/18 17:30 Problem List - Problems (1) Aspiration pneumonia Assessment/Plan: clinical picture is consistent with aspiration pneumonia considering on chemotherapy received vancomycin and zosyn will consult ID npo except ,meds f/u cultures Code(s): J69.0 - PNEUMONITIS DUE TO INHALATION OF FOOD AND VOMIT (2) Sepsis Assessment/Plan: elevated lactic asid with aspiration pneumonia F/U cultures and IV abx zosyn and Vancomycin Code(s): A41.9 - SEPSIS, UNSPECIFIED ORGANISM (3) Paroxysmal A-fib Assessment/Plan: Had an episode of Afib with RVR responded to IV Diltizem converted to NSR cont Eliquis Code(s): I48.0 - PAROXYSMAL ATRIAL FIBRILLATION (4) HTN (hypertension) Assessment/Plan: Cont Home medications Code(s): I10 - ESSENTIAL (PRIMARY) HYPERTENSION Qualifiers: Hypertension type: essential hypertension Qualified Code(s): I10 - Essential (primary) hypertension (5) Anemia Assessment/Plan: Chronic H/H are stable Code(s): D64.9 - ANEMIA, UNSPECIFIED Qualifiers: Anemia type: unspecified type Qualified Code(s): D64.9 - Anemia, unspecified (6) Colostomy status Assessment/Plan: s/p colon perforation in the past Code(s): Z93.3 - COLOSTOMY STATUS
[2018-06-15] MEDS ORDERED: PT OWN MED DRAWER 7, Y5N ONE (05:30)
[2018-06-15] MEDS: LEVOTHYROXINE NA 50 MCG TABLET (FP) PO SCH (06:11)
[2018-06-15 06:21] LABS: BASO % 0.7 % (0-2.0); EOS % 0.1 % (0-4.5); HEMATOCRIT 27.4 % (35.4-49); HEMOGLOBIN 8.8 GM/dL (11.7-16.9); LYMPH % 2.5 % (8-40); MEAN CELL VOLUME 100.1 fl (80-96); MEAN PLT VOLUME 9.4 fl (7.5-11.1); MONO % 2.5 % (3.8-10.2); NEUT % 94.2 % (42.8-82.8); PLATELET COUNT 231 K/MM3 (134-434); RBC 2.73 M/mm3 (4.00-5.60); RDW 17.7 % (11.9-15.9); WHITE BLOOD COUNT 10.5 K/mm3 (4.0-10.0)
--- NOTE | 2018-06-15 06:29 | EKG ---
Test Reason : Blood Pressure : / mmHG Vent. Rate : 158 BPM Atrial Rate : 288 BPM P-R Int : 000 ms QRS Dur : 086 ms QT Int : 288 ms P-R-T Axes : 000 017 113 degrees QTc Int : 467 ms ATRIAL FIBRILLATION WITH RAPID VENTRICULAR RESPONSE ST depression, consider subendocardial injury NONSPECIFIC T WAVE ABNORMALITY ABNORMAL ECG WHEN COMPARED WITH ECG OF 13-JUN-2018 17:10, ATRIAL FIBRILLATION HAS REPLACED SINUS RHYTHM VENT. RATE HAS INCREASED BY [address] NOW DEPRESSED IN ANTEROLATERAL LEADS Confirmed by JUDI RODRIGUEZ MD ([id number]) on 06/15/2018 6:29:21 AM Referred By: Confirmed By:JUDI RODRIGUEZ MD
--- NOTE | 2018-06-15 06:31 | EKG ---
Test Reason : Blood Pressure : / mmHG Vent. Rate : 089 BPM Atrial Rate : 089 BPM P-R Int : 194 ms QRS Dur : 092 ms QT Int : 376 ms P-R-T Axes : 074 024 075 degrees QTc Int : 457 ms POOR DATA QUALITY, INTERPRETATION MAY BE ADVERSELY AFFECTED NORMAL SINUS RHYTHM NORMAL ECG WHEN COMPARED WITH ECG OF 09-OCT-2017 08:43, NO SIGNIFICANT CHANGE WAS FOUND Confirmed by MICHAEL HOLLEY, JUDI ([id number]) on 06/15/2018 6:31:01 AM Referred By: Confirmed By:JUDI RODRIGUEZ MD
[2018-06-15 06:40] LABS: ANION GAP 10 MMOL/L (8-16); BLOOD UREA NITROGEN 31 mg/dL (7-18); CHLORIDE 106 mmol/L (98-107); CO2 29 mmol/L (21-32); CREATININE 0.7 mg/dL (0.55-1.3); GLUCOSE,RANDOM 112 mg/dL (74-106); POTASSIUM 4.9 mmol/L (3.5-5.1); SODIUM 144 mmol/L (136-145)
--- NOTE | 2018-06-15 09:29 | CON.NEURO ---
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 No: Bronchitis (no chronic sputum production says current sputum production isnew) Renal/: Yes: BPH, Neurogenic Bladder, UTI, Other Infectious Disease: Yes: Other (fever possible aspiration pneumonia) ENT: Yes: Other (legally blind right eye) Dermatology: Yes: Melanoma - Past Surgical History Past Surgical History: Yes: Colostomy (For sigmoid colon resection after perforation) - Alcohol/Substance Use Hx Alcohol Use: No - Smoking History Smoking history: Never smoked Have you smoked in the past 12 months: No Aproximately how many cigarettes per day: 0 - Social History ADL: Support Services History of Recent Travel: No Home Medications - Allergies Allergies/Adverse Reactions: Allergies Allergy/AdvReac Type Severity Reaction Status Date / Time No Known Drug Allergies Allergy Verified 06/13/18 16:53 - Home Medications Home Medications: Ambulatory Orders Apixaban [Eliquis -] 5 mg PO BID 10/07/17 Lenalidomide [Revlimid] 15 mg PO DAILY 10/07/17 Levothyroxine [Synthroid -] 50 mcg PO DAILY 10/07/17 Pantoprazole Sodium [Protonix -] 40 mg PO DAILY 10/07/17 Paroxetine HCl [Paxil -] 30 mg PO DAILY 10/07/17 Pregabalin [Lyrica -] 75 mg PO BID 10/07/17 Tamsulosin HCl [Flomax -] 0.4 mg PO DAILY 10/07/17 Valacyclovir HCl [Valtrex -] 500 mg PO BID 10/07/17 Dexamethasone [Decadron -] 20 mg PO SuWe@1000 tablet 10/16/17 Magnesium Oxide [Mag-Ox -] 400 mg PO BID tablet 10/16/17 Oxycodone HCl/Acetaminophen [Percocet 5-325 mg Tablet] 1 combo PO Q6H PRN tablet MDD 4 10/16/17 Metoprolol Succinate 25 mg PO DAILY 06/13/18 Multivit-Min/FA/Lycopen/Lutein [Centrum Silver Tablet] 1 tab PO DAILY 06/13/18 Physical Exam-Neuro Vital Signs: Vital Signs Temperature 97.9 F 06/15/18 06:10 Pulse Rate 59 L 06/15/18 06:10 Respiratory Rate 20 06/15/18 06:10 Blood Pressure 128/69 06/15/18 06:10 O2 Sat by Pulse Oximetry (%) 98 06/14/18 22:59 Labs: CBC, BMP 06/15/18 05:30 06/15/18 05:30 INR, PTT INR 2.30 (0.83-1.09) H 06/13/18 17:30 Assessment/Plan cc CT showed possible lacunar stroke HPI 78 year old male history of HTN, Atrial fibrillation, anemia, parotid tumor , right eye bliness, patient has multiple myeloma . He was brought in by hi not feeling well. He was feeling worsening of weakness, sob and chest pain. Patient has ct scan and it showed there is lacunar stroke but no acute findings. He was recenlty admitted in hospital and had pathological fracture of femur and had surgery done and he is not walking at home. 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 Lives with his , and denies any toxic habits NKDA ROS, Family history is normal. Home Medications: Apixaban [Eliquis -] 5 mg PO BID 10/07/17 Lenalidomide [Revlimid] 15 mg PO DAILY 10/07/17 Levothyroxine [Synthroid -] 50 mcg PO DAILY 10/07/17 Pantoprazole Sodium [Protonix -] 40 mg PO DAILY 10/07/17 Paroxetine HCl [Paxil -] 30 mg PO DAILY 10/07/17 Pregabalin [Lyrica -] 75 mg PO BID 10/07/17 Tamsulosin HCl [Flomax -] 0.4 mg PO DAILY 10/07/17 Valacyclovir HCl [Valtrex -] 500 mg PO BID 10/07/17 Dexamethasone [Decadron -] 20 mg PO SuWe@1000 tablet 10/16/17 Magnesium Oxide [Mag-Ox -] 400 mg PO BID tablet 10/16/17 Oxycodone HCl/Acetaminophen [Percocet 5-325 mg Tablet] 1 combo PO Q6H PRN tablet MDD 4 10/16/17 Metoprolol Succinate 25 mg PO DAILY 06/13/18 Multivit-Min/FA/Lycopen/Lutein [Centrum Silver Tablet] 1 tab PO DAILY 06/13/18 NEUROLOGICAL EXAMINATION Alert oriented x 3, speech is slightly slurred but nothing new Right sided facial drop( LMN type), Moving both upper extremith and strength si normal There is bilateral foot drop , no sensory loss identified There is mild weakness of right dorsiflexion and planter flexion (nothing is new ) CT head reviewed Assessment: 1. CT scan lacuanr infarct, no new findings, no further testing needed. Continue eliquis and no need to add aspirni 2. Bilateral foot drop, could be due to diuse and developing peripheral neuropathy. Outpatient work up and follow up can be done Thanking you so much Segun Tobias MD
[2018-06-15] MEDS ORDERED: FLU VACCINE QUAD 60 MCG/0.5 ML (MDV 18-19) IM ONE (10:00)
--- NOTE | 2018-06-15 10:12 | CON.CARD ---
Consult Consult Specialty:: Cardiology Referred by:: Dr. Lopez Reason for Consultation:: Cardiac evaluation - History of Present Illness Chief Complaint: Lethargy History of Present Illness: Patient is a 78 year old male with history of multiple myeloma with widepread spinal involvement (vertebral compression fractures, s/p multiple kyphoplasties and palliative radiation therapy and chemotherapy, melanoma, parotid cancer, PAF , PSVT, perforated viscus and pneumoperitoneum post exploratory laparotomy showing perforated bowel and purulent peritonitis requiring sigmoid resection and colostomy and abdominal washout. He presents with lethargy. His reports loss of appetite, coughing and feeling ill. He was also reported having fever of 100.8 at home. He denies chest pain, SOB or palpitations when asked. Denies paroxysmal nocturnal dyspnea or orthopnea. Denies headache at this time. 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, Other (Residual right lower neuron facial palsy) Cardio/Vascular: Yes: AFIB, CAD, HTN, Hyperlipdemia, Other (PSVT) Pulmonary: No: Bronchitis (no chronic sputum production says current sputum production isnew) Renal/: Yes: BPH, Neurogenic Bladder, UTI Heme/Onc: Yes: Other (Multiple myeloma) ENT: Yes: Other (legally blind right eye) Dermatology: Yes: Melanoma - Past Surgical History Past Surgical History: Yes: Colostomy (For sigmoid colon resection after perforation) - Alcohol/Substance Use Hx Alcohol Use: No - Smoking History Smoking history: Never smoked Have you smoked in the past 12 months: No Aproximately how many cigarettes per day: 0 - Social History ADL: Support Services History of Recent Travel: No Home Medications - Allergies Allergies/Adverse Reactions: Allergies Allergy/AdvReac Type Severity Reaction Status Date / Time No Known Drug Allergies Allergy Verified 06/13/18 16:53 - Home Medications Home Medications: Ambulatory Orders Apixaban [Eliquis -] 5 mg PO BID 10/07/17 Lenalidomide [Revlimid] 15 mg PO DAILY 10/07/17 Levothyroxine [Synthroid -] 50 mcg PO DAILY 10/07/17 Pantoprazole Sodium [Protonix -] 40 mg PO DAILY 10/07/17 Paroxetine HCl [Paxil -] 30 mg PO DAILY 10/07/17 Pregabalin [Lyrica -] 75 mg PO BID 10/07/17 Tamsulosin HCl [Flomax -] 0.4 mg PO DAILY 10/07/17 Valacyclovir HCl [Valtrex -] 500 mg PO BID 10/07/17 Dexamethasone [Decadron -] 20 mg PO SuWe@1000 tablet 10/16/17 Magnesium Oxide [Mag-Ox -] 400 mg PO BID tablet 10/16/17 Oxycodone HCl/Acetaminophen [Percocet 5-325 mg Tablet] 1 combo PO Q6H PRN tablet MDD 4 10/16/17 Metoprolol Succinate 25 mg PO DAILY 06/13/18 Multivit-Min/FA/Lycopen/Lutein [Centrum Silver Tablet] 1 tab PO DAILY 06/13/18 Review of Systems - Review of Systems Constitutional: reports: Lethargy, Weakness. denies: Chills, Fever Cardiovascular: denies: Chest Pain, Palpitations, Shortness of Breath Respiratory: reports: Cough. denies: Hemoptysis, Orthopnea, PND, SOB, SOB on Exertion Gastrointestinal: denies: Abdominal Pain, Constipation, Diarrhea, Melena, Nausea , Rectal Bleeding, Vomiting Musculoskeletal: denies: Joint Pain Neurological: reports: Weakness. denies: Dizziness, Headache, Seizure, Syncope Vital Signs: Vital Signs Temperature 97.9 F 06/15/18 06:10 Pulse Rate 59 L 06/15/18 06:10 Respiratory Rate 20 06/15/18 06:10 Blood Pressure 128/69 06/15/18 06:10 O2 Sat by Pulse Oximetry (%) 98 06/14/18 22:59 HENT: Yes: Atraumatic Neck: Yes: Supple Respiratory: Yes: Diminished Gastrointestinal: Yes: Normal Bowel Sounds, Other (Colostomy) Cardiovascular: Yes: Regular Rate and Rhythm JVD: No Carotid Bruit: No PMI: Non-Displaced Heart Sounds: Yes: S1, S2 Murmur: Yes: Systolic Murmur, Grade 1 Edema: No - Other Data Labs, Other Data: CBC, BMP 06/15/18 05:30 06/15/18 05:30 INR, PTT INR 2.30 (0.83-1.09) H 06/13/18 17:30 Normal sinus rhythm with no ST-T abnormality Imaging - Results Chest X-ray: Report Reviewed Cat Scan: Report Reviewed (Head CT unremarkable) EKG: Report Reviewed Problem List - Problems (1) Aspiration pneumonia Code(s): J69.0 - PNEUMONITIS DUE TO INHALATION OF FOOD AND VOMIT (2) Sepsis Code(s): A41.9 - SEPSIS, UNSPECIFIED ORGANISM (3) Anemia Code(s): D64.9 - ANEMIA, UNSPECIFIED Qualifiers: Anemia type: unspecified type Qualified Code(s): D64.9 - Anemia, unspecified (4) CAD (coronary artery disease) Code(s): I25.10 - ATHSCL HEART DISEASE OF [place] CORONARY ARTERY W/O ANG PCTRS Qualifiers: Coronary Disease-Associated Artery/Lesion type: [place] artery [place] vs. transplanted heart: [place] heart Associated angina: without angina Qualified Code(s): I25.10 - Atherosclerotic heart disease of [place] coronary artery without angina pectoris (5) Fever Code(s): R50.9 - FEVER, UNSPECIFIED (6) HTN (hypertension) Code(s): I10 - ESSENTIAL (PRIMARY) HYPERTENSION Qualifiers: Hypertension type: essential hypertension Qualified Code(s): I10 - Essential (primary) hypertension (7) Hypothyroidism Code(s): E03.9 - HYPOTHYROIDISM, UNSPECIFIED Qualifiers: Hypothyroidism type: unspecified Qualified Code(s): E03.9 - Hypothyroidism , unspecified (8) Multiple myeloma Code(s): C90.00 - MULTIPLE MYELOMA NOT HAVING ACHIEVED REMISSION Qualifiers: Multiple myeloma remission status: not in remission Qualified Code(s): C90.00 - Multiple myeloma not having achieved remission (9) PAF (paroxysmal atrial fibrillation) Code(s): I48.0 - PAROXYSMAL ATRIAL FIBRILLATION (10) PSVT (paroxysmal supraventricular tachycardia) Code(s): I47.1 - SUPRAVENTRICULAR TACHYCARDIA (11) Syncope and collapse Code(s): R55 - SYNCOPE AND COLLAPSE Assessment/Plan 1. Lethargy 2. PAF [id number] score of 3 on NOAC 3. History of PSVT currently in sinus rhythm 4. History of diverticular perforation with purulent peritonitis and post exploratory laparotomy and sigmoid resection/colostomy/abdominal washout 5. Non-obstructive CAD 6. HTN 7. History of multiple myeloma 8. 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 Anemia 10. Hypothyroidism 11. Possible aspiration pneumonia PLAN: 1. Neuro input noted 2. Continue Metoprolol, Valsartan and Amlodipine 3. Continue Eliquis 4. Antibiotic to cover aspiration pneumonia 5. Prevent aspiration 6. Continue thyroid replacement therapy Yury Hassan MD
[2018-06-15 10:16] LABS: ANISOCYTOSIS 1+; MACROCYTOSIS 1+; PLATELET ESTIMATE NORMAL
[2018-06-15] MEDS: TAMSULOSIN HCL 0.4 MG CAP PO SCH (11:05)
[2018-06-15] MEDS: LENALIDOMIDE 15 MG PO SCH (11:06)
[2018-06-15] MEDS: APIXABAN 5 MG TABLET PO SCH ×2 (11:07→22:09)
[2018-06-15] MEDS: MAGNESIUM OXIDE 400 MG TABLET (FP) PO SCH ×2 (11:08→22:09)
[2018-06-15] MEDS: PREGABALIN 50 MG CAPSULE PO SCH ×2 (11:08→22:09)
[2018-06-15] MEDS: PARoxetine HCL 20 MG TABLET (FP) PO SCH (11:09)
[2018-06-15] MEDS: PANTOPRAZOLE 40 MG TABLET (FP) PO SCH (11:11)
[2018-06-15] MEDS: valACYclovir HCL 500 MG TABLET (FP) PO SCH (11:12)
--- NOTE | 2018-06-15 11:24 | PN ---
Progress Note, Physician History of Present Illness: patients history noted currently patient feeling much better except weak breathing well - Current Medication List Current Medications: Active Medications Acetaminophen (Tylenol -) 650 mg PO Q6H PRN PRN Reason: FEVER Amlodipine Besylate (Norvasc -) 5 mg PO DAILY [facility] Last Admin: 06/14/18 10:41 Dose: 5 mg Apixaban (Eliquis -) 5 mg PO BID [facility] Last Admin: 06/15/18 11:07 Dose: 5 mg Dexamethasone (Decadron -) 20 mg PO SuWe@1000 [facility] Last Admin: 06/14/18 10:41 Dose: 20 mg Docusate Sodium (Colace -) 100 mg PO Q12H PRN PRN Reason: CONSTIPATION Levothyroxine Sodium (Synthroid -) 50 mcg PO DAILY@0700 [facility] Last Admin: 06/15/18 06:11 Dose: 50 mcg Magnesium Oxide (Mag-Ox -) 400 mg PO BID [facility] Last Admin: 06/15/18 11:08 Dose: 400 mg Metoprolol Succinate (Toprol Xl -) 75 mg PO BID [facility] Last Admin: 06/14/18 22:59 Dose: Not Given Non-Formulary Medication (Lenalidomide [Revlimid]) 15 mg PO DAILY [facility] Stop: 06/30/18 10:01 Last Admin: 06/15/18 11:06 Dose: 15 mg Pantoprazole Sodium (Protonix -) 40 mg PO DAILY [facility] Last Admin: 06/15/18 11:11 Dose: 40 mg Paroxetine HCl (Paxil -) 30 mg PO DAILY [facility] Last Admin: 06/15/18 11:09 Dose: 30 mg Pregabalin (Lyrica -) 50 mg PO BID [facility] Last Admin: 06/15/18 11:08 Dose: 50 mg Tamsulosin HCl (Flomax -) 0.4 mg PO DAILY@0830 [facility] Last Admin: 06/15/18 11:05 Dose: 0.4 mg Valacyclovir HCl (Valtrex -) 500 mg PO DAILY [facility] Last Admin: 06/15/18 11:12 Dose: 500 mg Valsartan (Diovan -) 160 mg PO DAILY [facility] Last Admin: 06/14/18 10:41 Dose: 160 mg - Objective Vital Signs: Vital Signs Temperature 97.9 F 06/15/18 06:10 Pulse Rate 59 L 06/15/18 06:10 Respiratory Rate 20 10/01/18 06:10 Blood Pressure 128/69 06/15/18 06:10 O2 Sat by Pulse Oximetry (%) 98 06/14/18 22:59 Constitutional: Yes: No Distress, Calm Cardiovascular: Yes: Regular Rate and Rhythm Respiratory: Yes: Regular, Poor Air Entry (bases) Gastrointestinal: Yes: Normal Bowel Sounds, Soft Musculoskeletal: Yes: WNL Extremities: Yes: WNL Neurological: Yes: Alert, Oriented Psychiatric: Yes: Alert, Oriented Labs: CBC, BMP 06/15/18 05:30 06/15/18 05:30 INR, PTT INR 2.30 (0.83-1.09) H 06/13/18 17:30 Assessment/Plan Problem List - Problems (1) Sepsis Code(s): A41.9 - SEPSIS, UNSPECIFIED ORGANISM (2) CHEPE (acute kidney injury) Code(s): N17.9 - ACUTE KIDNEY FAILURE, UNSPECIFIED (3) Anemia Code(s): D64.9 - ANEMIA, UNSPECIFIED Qualifiers: Anemia type: unspecified type Qualified Code(s): D64.9 - Anemia, unspecified (4) CAD (coronary artery disease) Code(s): I25.10 - ATHSCL HEART DISEASE OF [place] CORONARY ARTERY W/O ANG PCTRS Qualifiers: Coronary Disease-Associated Artery/Lesion type: [place] artery [place] vs. transplanted heart: [place] heart Associated angina: without angina Qualified Code(s): I25.10 - Atherosclerotic heart disease of [place] coronary artery without angina pectoris (5) Elevated lactic acid level Code(s): R79.89 - OTHER SPECIFIED ABNORMAL FINDINGS OF BLOOD CHEMISTRY (6) Femur fracture Code(s): S72.90XA - UNSP FRACTURE OF UNSP FEMUR, INIT ENCNTR FOR CLOSED FRACTURE Qualifiers: Encounter type: subsequent encounter (7) Fever Code(s): R50.9 - FEVER, UNSPECIFIED Qualifiers: Encounter type: initial encounter (8) HTN (hypertension) Code(s): I10 - ESSENTIAL (PRIMARY) HYPERTENSION Qualifiers: Hypertension type: essential hypertension Qualified Code(s): I10 - Essential (primary) hypertension (9) History of open sigmoidectomy Code(s): Z98.89 - OTHER SPECIFIED POSTPROCEDURAL STATES * DO NOT USE * (10) Multiple myeloma Code(s): C90.00 - MULTIPLE MYELOMA NOT HAVING ACHIEVED REMISSION Qualifiers: Multiple myeloma remission status: not in remission Qualified Code(s): C90.00 - Multiple myeloma not having achieved remission (11) PAF (paroxysmal atrial fibrillation) Code(s): I48.0 - PAROXYSMAL ATRIAL FIBRILLATION (12) Perforated sigmoid colon Code(s): K63.1 - PERFORATION OF INTESTINE (NONTRAUMATIC) Assessment/Plan 78 y.o. male with history of parotid CA s/p resection, MM on Renalidomide , Atrial fibrillation, CAD, HLD, sigmoid colon perforation s/p colostomy, hypothyroidism, femur fracture, and frequent falls with rib fractures presents due to extreme weakness/lethargy, fever, cough with elevated lactate level, tachycardia looked at the xray plan will hold of on abx monitor closely patient probably dehydrated nutrition hydration rest as per the team
[2018-06-15] MEDS: amLODIPine BESYLATE 5 MG TABLET (FP) PO SCH (11:28)
[2018-06-15] MEDS: VALSARTAN 160 MG TABLET (UD) PO SCH (11:28)
--- NOTE | 2018-06-15 13:47 | PN ---
Progress Note, Physician Chief Complaint: in NSR no c/o fever or SOB feels weak - Current Medication List Current Medications: Active Medications Acetaminophen (Tylenol -) 650 mg PO Q6H PRN PRN Reason: FEVER Amlodipine Besylate (Norvasc -) 5 mg PO DAILY [facility] Last Admin: 06/15/18 11:28 Dose: Not Given Apixaban (Eliquis -) 5 mg PO BID [facility] Last Admin: 06/15/18 11:07 Dose: 5 mg Dexamethasone (Decadron -) 20 mg PO SuWe@1000 [facility] Last Admin: 06/14/18 10:41 Dose: 20 mg Docusate Sodium (Colace -) 100 mg PO Q12H PRN PRN Reason: CONSTIPATION Levothyroxine Sodium (Synthroid -) 50 mcg PO DAILY@0700 [facility] Last Admin: 06/15/18 06:11 Dose: 50 mcg Magnesium Oxide (Mag-Ox -) 400 mg PO BID [facility] Last Admin: 06/15/18 11:08 Dose: 400 mg Metoprolol Succinate (Toprol Xl -) 75 mg PO BID [facility] Last Admin: 06/15/18 11:28 Dose: Not Given Non-Formulary Medication (Lenalidomide [Revlimid]) 15 mg PO DAILY [facility] Stop: 06/30/18 10:01 Last Admin: 06/15/18 11:06 Dose: 15 mg Pantoprazole Sodium (Protonix -) 40 mg PO DAILY [facility] Last Admin: 06/15/18 11:11 Dose: 40 mg Paroxetine HCl (Paxil -) 30 mg PO DAILY [facility] Last Admin: 06/15/18 11:09 Dose: 30 mg Pregabalin (Lyrica -) 50 mg PO BID [facility] Last Admin: 06/15/18 11:08 Dose: 50 mg Tamsulosin HCl (Flomax -) 0.4 mg PO DAILY@0830 [facility] Last Admin: 06/15/18 11:05 Dose: 0.4 mg Valacyclovir HCl (Valtrex -) 500 mg PO DAILY [facility] Last Admin: 06/15/18 11:12 Dose: 500 mg Valsartan (Diovan -) 160 mg PO DAILY [facility] Last Admin: 06/15/18 11:28 Dose: Not Given - Objective Vital Signs: Vital Signs Temperature 97.9 F 06/15/18 06:10 Pulse Rate 59 L 06/15/18 06:10 Respiratory Rate 20 06/15/18 06:10 Blood Pressure 128/69 06/15/18 06:10 O2 Sat by Pulse Oximetry (%) 98 06/14/18 22:59 Elderly sick looking male c/o feeling weak and chest congestion. 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 Labs: CBC, BMP 06/15/18 05:30 06/15/18 05:30 INR, PTT INR 2.30 (0.83-1.09) H 06/13/18 17:30 - ....Imaging X-ray: Report Reviewed (+ Left Lung Opacities) Problem List - Problems (1) Aspiration pneumonia Assessment/Plan: CXR shows few opacities and healing ribs fracture, no fever, elevated TWBC due to steroid so abx stopped by ID will F/U clinical course, add ON LDH Code(s): J69.0 - PNEUMONITIS DUE TO INHALATION OF FOOD AND VOMIT (2) Paroxysmal A-fib Assessment/Plan: Had an episode of Afib with RVR responded to IV Diltizem converted to NSR cont Eliquis Code(s): I48.0 - PAROXYSMAL ATRIAL FIBRILLATION (3) HTN (hypertension) Assessment/Plan: Cont Home medications Code(s): I10 - ESSENTIAL (PRIMARY) HYPERTENSION Qualifiers: Hypertension type: essential hypertension Qualified Code(s): I10 - Essential (primary) hypertension (4) Anemia Assessment/Plan: Chronic H/H are stable Code(s): D64.9 - ANEMIA, UNSPECIFIED Qualifiers: Anemia type: unspecified type Qualified Code(s): D64.9 - Anemia, unspecified (5) Colostomy status Assessment/Plan: s/p colon perforation in the past Code(s): Z93.3 - COLOSTOMY STATUS
--- NOTE | 2018-06-15 14:40 | CONSULT ---
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, Other (Residual right lower neuron facial palsy) Cardiovascular: Yes: AFIB, CAD, HTN, Hyperlipdemia, Other (PSVT) Pulmonary: No: Bronchitis (no chronic sputum production says current sputum production isnew) Renal/: Yes: BPH, Neurogenic Bladder, UTI Heme/Onc: Yes: Other (Multiple myeloma) Infectious Disease: Yes: Other (fever possible aspiration pneumonia) ENT: Yes: Other (legally blind right eye) Dermatology: Yes: Melanoma - Past Surgical History Past Surgical History: Yes: Colostomy (For sigmoid colon resection after perforation) - Smoking History Smoking history: Never smoked Have you smoked in the past 12 months: No Aproximately how many cigarettes per day: 0 - Alcohol/Substance Use Hx Alcohol Use: No - Social History ADL: Support Services History of Recent Travel: No History - Admission Reason For Visit: ASPIRATION PNEUMONIA - Hearing Hearing: Normal Hearing Aide: No With Patient: No Speech Evaluation - Communication Primary Language: [place] Communication: Yes: Within Normal Limits, Simple Responses, Dysarthria Oral Expression Ability: Yes: No Impairment - Speech Production Apraxia: No Able to Make Needs Known: Yes: WNL Intelligibility: Yes: WNL - Speech Characteristics Voice Loudness: Normal Voice Pitch: Yes: Normal Voice Phonatory-based Quality: Yes: Hoarse, Breathy, Weak Speech Pattern: Normal Nasal Resonance: Normal Articulation: Yes: Precise Voice Comment: Vocal quality is reduce but WFL for environment - Language/Auditory Comprehension Follows: Yes: 1 Stage Simple Commands, 2 Stage Simple Commands Observation: Able to respond to yes/no queries: Yes, Yes/No Confusion: No, Comprehends Conversational Speech: Yes, Benefits from Slow Speech: No, Benefits from Repetiton: No, Benefits from Increased Volume of Speech: No - Language/Verbal Expression Able to Respond to Simple Queries: Yes: WNL Able to Communicate Wants and Needs: Yes: WNL Functional Communication Status: Yes: WNL Aware of Errors: Yes Attempts to Correct Errors: No Use of Gestures: No Written Expression: not examined Oral Expression: WFL Reading Comprehension: not examined Calculations: not examined Attention: Yes: Intact - Memory/Perception oysterman Memory: Yes: WNL Short Term Memory: Yes: WNL Hemaniopsia: Yes: Right (secondary to right side ) Visual Neglect: Yes: Right (secondary to right side ) - Swallow Evaluation/Bedside Assessment Current Nutritional Intake: NPO (except meds / pt pass 3oz test.) Oral Secretions: Yes: WFL Tracheostomy Present: No Patient on Ventilator: No Dentition: Yes: Adequate Facial Symmetry at Rest: Facial Droop Right Sensation: Reduced Right Facial Comment: Right side paralysis observed secondary s/p resection of parotid tumor Jaw Position: Open at Rest Against Resistance Opening: Weak (right side) Against Resistance Closing: Weak Pucker Lips: Weak (right side) Smile: Reduced ROM (side right) Lips, Comment: Right side paralysis observed secondary s/p resection of parotid tumor Lingual Speed of Movement: Reduced Lingual Movement Strgth Against Opposition: Reduced Lingual Movement Characteristics: Normal Lingual Comment: WFL for speech and swallowing purposes. Soft Palate Description: Normal Color Gag Reflex: Weak Bite Reflex: Present Velopharyngeal Movement: Normal Laryngeal Elevation: Impaired Laryngeal Movement: Able to Palpate, Labored,delay initiation Needs Assistance: Yes Rate of Intake: WFL Labial Seal: Impaired Right Chewing: WFL Oral Prep Time: WFL A-P Transit: WFL Timing of Swallow: Delayed Odynophagia: Oral, Pharyngeal Other Findings/Remarks: 78 yo male seen at bedside for swallow eval to r/o dysphagia. Pt is verbal, A& Ox3 cooperative. Admitted to [facility] for gradual weakness, cough and fever (fever resolved). Being treated for possible aspiration PNA. H/O HTN, A-fib, parotid CA tumor resection with righ facila nerve damage. , CHEPE. Current diet NPO except medication. vocal quality is functional but weak. Weak cough for airway protection. Pt given po trials of pureed with total assistance revealed good acceptance, adequate bolus formation and transport, pharyngeal swallow is slightly delayed 2 -3 seconds with no cough or changes in respiration. Pt given po trials of thin and thicken liquids via cup with total assistance revealed good acceptance, adequate bolus formation and transport, pharyngeal swallow is slightly delayed 2-3 seconds with positive cough with thin liquids . Unremarkable for thicken liquids. Recommendations - Speech Evaluation, Impression/Plan Impression: Pt presents with mild to moderate mallory-pharyngeal dysphagia for solids and liquids with positive s/s of aspiration for thin liquids. Pt is able to tolerate puree and honey thicken liquids at bedside without signs of aspiration. Human Capital Analyst Goals: tolerate the least retrictive diet without s/s of aspiration. Short Term Goals: tolerate purees and honey thicken liquids without s/s aspiration. - Dysphagia Impressions/Plan Swallowing Skills: Impaired Dysphagia Impressions: Moderate Impairment (secondary to right side facial paralysis.), Risk of Aspiration, Suspect Aspiration *Silent aspiration: cannot be R/O at bedside Dysphagia Treatment Plan: Small Bites, Trial Feedings (pureed with honey thicken liquids), Safe Rate, 1/2 tsp. at a time, Elevate HOB during feed, Other (monitor nutritional intake and pulmonary status.) Dysphagia Evaluation Summary: Trial pureed with honey thicken liquids as tolerated. Crush meds for safety. Observe standard aspiration precautions CLINICAL TRIAL EDUCATOR to follow up for diet tolerance and possible upgrade. Results given verbally to full charge bookkeeper and to pcp via chart. - Recommendations Diet Consistency: Dysphagia Pureed Medication Administration: Crushed with applesauce Liquids: Honey Thick
[2018-06-15 14:56] LABS: LDH 137 U/L (87-246)
--- NOTE | 2018-06-15 16:03 | CONSULT ---
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 History of MM well known to practice. Not in remission. Currently on Revlimid as single therapy. He is scheduled until 06/30 to continue. His functional status has declined once able to walk with walker now mostly bed bound. Family states decline started at the time of fall and rib injury. Denies CP, DOSHI,abdominal pain, nausea or vomiting. 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 Renal/: Yes: BPH, Neurogenic Bladder, UTI, Other Heme/Onc: Yes: Cancer (Parotid cancer, melanoma), Other (Multiple Myeloma) Infectious Disease: Yes: Other (fever possible aspiration pneumonia) ENT: Yes: Other (legally blind right eye) Dermatology: Yes: Melanoma - Past Surgical History Past Surgical History: Yes: Colostomy (For sigmoid colon resection after perforation) - Smoking History Smoking history: Never smoked Have you smoked in the past 12 months: No Aproximately how many cigarettes per day: 0 - Alcohol/Substance Use Hx Alcohol Use: No - Social History ADL: Support Services History of Recent Travel: No REVIEW OF SYSTEMS: CONSTITUTIONAL: generalized weakness, malaise, loss of appetite Absent: fever, chills, diaphoresis, , weight change HEENT: Absent: rhinorrhea, nasal congestion, throat pain, throat swelling, difficulty swallowing, mouth swelling, ear pain, eye pain, visual changes CARDIOVASCULAR: Absent: chest pain, syncope, palpitations, irregular heart rate, lightheadedness , peripheral edema RESPIRATORY: cough, shortness of breath, dyspnea with exertion Absent: , orthopnea, wheezing, stridor, hemoptysis GASTROINTESTINAL: Absent: abdominal pain, abdominal distension, nausea, vomiting, diarrhea, constipation, melena, hematochezia GENITOURINARY: Absent: dysuria, frequency, urgency, hesitancy, hematuria, flank pain, genital pain MUSCULOSKELETAL: Absent: myalgia, arthralgia, joint swelling, back pain, neck pain SKIN: Absent: rash, itching, pallor HEMATOLOGIC/IMMUNOLOGIC: Absent: easy bleeding, easy bruising, lymphadenopathy, frequent infections ENDOCRINE: Absent: unexplained weight gain, unexplained weight loss, heat intolerance, cold intolerance NEUROLOGIC: Absent: headache, focal weakness or paresthesias, dizziness, unsteady gait, seizure, mental status changes, bladder or bowel incontinence PSYCHIATRIC: Absent: anxiety, depression, suicidal or homicidal ideation, hallucinations. PHYSICAL EXAMINATION Vital Signs - 24 hr 06/14/18 06/14/18 06/14/18 18:00 19:00 22:59 Temperature 98 F 97.4 F L Pulse Rate 54 L Pulse Rate [ 66 Apical] Respiratory 14 14 20 Rate Blood Pressure 88/58 L Blood Pressure 96/52 L [Right Arm] O2 Sat by Pulse 98 98 98 Oximetry (%) 06/14/18 06/15/18 06/15/18 23:38 02:00 06:10 Temperature 98 F 97.4 F L 97.9 F Pulse Rate 58 L 58 L 59 L Pulse Rate [ Apical] Respiratory 20 20 20 Rate Blood Pressure 114/73 100/59 L 128/69 Blood Pressure [Right Arm] O2 Sat by Pulse Oximetry (%) 06/15/18 14:00 Temperature 97.6 F Pulse Rate 103 H Pulse Rate [ Apical] Respiratory 20 Rate Blood Pressure 109/62 Blood Pressure [Right Arm] O2 Sat by Pulse Oximetry (%) GENERAL: AAOx3, NAD frail and weak. HEAD: NCAT, Right sided facial droop EYES: RIght eye patched. EARS, NOSE, THROAT: Dry mucous membranes. LUNGS: diminished breath sounds bilaterally, Scattered Rhonchi. HEART:irregularly irregular, NL S1S2, No m/g/r ABDOMEN: soft, NTND, NABS, colostomy in place. MUSCULOSKELETAL:decreased ROM in LE R>L. No CVA tenderness. UPPER EXTREMITIES: 2+ pulses, warm, well-perfused. No cyanosis. No clubbing.No peripheral edema. LOWER EXTREMITIES: 2+ pulses, warm, well-perfused. No calf tenderness. No peripheral edema. NEUROLOGICAL: 4/5 strength in bilateral upper ext. and LLE. 3/5 strength in RLE. Sensation intact. PSYCHIATRIC: Cooperative. Good eye contact. Appropriate mood and affect. Laboratory Results - last 24 hr 06/15/18 06/15/18 05:30 05:30 WBC 10.5 H RBC 2.73 L Hgb 8.8 L Hct 27.4 L MCV 100.1 H MCH 32.0 MCHC 32.0 RDW 17.7 H Plt Count 231 MPV 9.4 Absolute Neuts (auto) 9.9 H Neutrophils % 94.2 H Neutrophils % (Manual) 91.3 H Band Neutrophils % 0.0 Lymphocytes % 2.5 L D Lymphocytes % (Manual) 3.9 L Monocytes % 2.5 L Monocytes % (Manual) 5 Eosinophils % 0.1 D Eosinophils % (Manual) 0.0 Basophils % 0.7 Basophils % (Manual) 0.0 Myelocytes % (Man) 0 Promyelocytes % (Man) 0 Blast Cells % (Manual) 0 Nucleated RBC % 0 Metamyelocytes 0 D Hypochromia 0 Platelet Estimate Normal Polychromasia 0 Poikilocytosis 1+ Anisocytosis 1+ Microcytosis 0 Macrocytosis 1+ Sodium 144 Potassium 4.9 Chloride 106 Carbon Dioxide 29 Anion Gap 10 BUN 31 H Creatinine 0.7 Creat Clearance w eGFR > 60 Random Glucose 112 H Calcium 9.0 LD Total 137 Active Medications Generic Name Dose Route Start Last Admin Trade Name Freq PRN Reason Stop Dose Admin Acetaminophen 650 mg 06/13/18 19:29 Tylenol - PO Q6H PRN FEVER Amlodipine Besylate 5 mg 06/14/18 10:00 06/15/18 11:28 Norvasc - PO Not Given DAILY [facility] Apixaban 5 mg 06/13/18 22:00 06/15/18 11:07 Eliquis - PO 5 mg BID [facility] Administration Dexamethasone 20 mg 06/14/18 10:00 06/14/18 10:41 Decadron - PO 20 mg SuWe@1000 [facility] Administration Docusate Sodium 100 mg 06/13/18 19:29 Colace - PO Q12H PRN CONSTIPATION Levothyroxine Sodium 50 mcg 06/14/18 07:00 06/15/18 06:11 Synthroid - PO 50 mcg DAILY@0700 [facility] Administration Magnesium Oxide 400 mg 06/14/18 10:00 06/15/18 11:08 Mag-Ox - PO 400 mg BID [facility] Administration Metoprolol Succinate 75 mg 06/13/18 22:00 06/15/18 11:28 Toprol Xl - PO Not Given BID [facility] Non-Formulary Medication 15 mg 06/15/18 10:00 06/15/18 11:06 Lenalidomide [Revlimid] PO 06/30/18 10:01 15 mg DAILY [facility] Administration Pantoprazole Sodium 40 mg 06/14/18 10:00 06/15/18 11:11 Protonix - PO 40 mg DAILY [facility] Administration Paroxetine HCl 30 mg 06/14/18 10:00 06/15/18 11:09 Paxil - PO 30 mg DAILY [facility] Administration Pregabalin 50 mg 06/13/18 22:00 06/15/18 11:08 Lyrica - PO 50 mg BID [facility] Administration Tamsulosin HCl 0.4 mg 06/14/18 08:30 06/15/18 11:05 Flomax - PO 0.4 mg DAILY@0830 [facility] Administration Valacyclovir HCl 500 mg 06/14/18 10:00 06/15/18 11:12 Valtrex - PO 500 mg DAILY [facility] Administration Valsartan 160 mg 06/14/18 10:00 06/15/18 11:28 Diovan - PO Not Given DAILY [facility] ASSESSMENT/PLAN: 78 yrs old man multiple medical co-morbidities with history of MM admitted to possible aspiration PNA and found to be volume depleted and anemic. Dispo: We will continue to follow the patient. Thank you for this consultative opportunity. Problem List - Problems (1) Multiple myeloma Assessment/Plan: Multiple Myeloma with extensive bony and spine involvement. * not in remission * On revlimib last day of this cycle in (2) Aspiration pneumonia Assessment/Plan: ID consult appreciated. * Abx held. * hydration. Qualifiers: Aspiration pneumonia type: unspecified Laterality: unspecified laterality Lung location: unspecified part of lung Qualified Code(s): J69.0 - Pneumonitis due to inhalation of food and vomit (3) Paroxysmal A-fib Assessment/Plan: On eliquis for AC * Continue AC with Eliquis. (4) Anemia Assessment/Plan: Chronic anemia. Volume depleted on admission. * His drop in Hgb most likely dilutional back at baseline. * Normal transfusion thresholds. * Continue to Monitor H/H (5) HTN (hypertension) Visit type - Emergency Visit Emergency Visit: Yes ED Registration Date: 06/13/18 Care time: The patient presented to the Emergency Department on the above date and was hospitalized for further evaluation of their emergent condition. - New Patient This patient is new to me today: Yes Date on this admission: 06/16/18 - Critical Care Critical Care patient: No
--- NOTE | 2018-06-15 21:30 | PN ---
Teaching Attending Note Name of Resident: Korey Morris ATTENDING PHYSICIAN STATEMENT I saw and evaluated the patient. I reviewed the resident's note and discussed the case with the resident. I agree with the resident's findings and plan as documented. 78 y.o. male with history of parotid CA s/p resection, Myeloma on revlimid , Atrial fibrillation, CAD, HLD, sigmoid colon perforation s/p colostomy, hypothyroidism, right femur fracture s/o ORIF, and frequent falls with rib fractures presents due to extreme weakness/lethargy, fever, cough with elevated lactate level, tachycardia Failure to thrive/? aspiration Myeloma--on revlimid/dexamethasone D4 of revlimid cycle anemia --stable renal function --normal continue sipportive care
[2018-06-16] MEDS: LEVOTHYROXINE NA 50 MCG TABLET (FP) PO SCH (06:23)
[2018-06-16 06:55] LABS: ANION GAP 9 MMOL/L (8-16); BLOOD UREA NITROGEN 29 mg/dL (7-18); CALCIUM 8.8 mg/dL (8.5-10.1); CHLORIDE 109 mmol/L (98-107); CO2 28 mmol/L (21-32); CREATININE 0.6 mg/dL (0.55-1.3); GLUCOSE,RANDOM 71 mg/dL (74-106); POTASSIUM 4.2 mmol/L (3.5-5.1); SODIUM 146 mmol/L (136-145)
[2018-06-16 07:38] LABS: BASO % 0.2 % (0-2.0); EOS % 0.3 % (0-4.5); HEMATOCRIT 28.8 % (35.4-49); HEMOGLOBIN 9.2 GM/dL (11.7-16.9); MCH 31.9 pg (25.7-33.7); MCHC 31.9 g/dl (32.0-35.9); MONO % 4.1 % (3.8-10.2); NEUT % 93.4 % (42.8-82.8); PLATELET COUNT 241 K/MM3 (134-434); RBC 2.88 M/mm3 (4.00-5.60); RDW 18.1 % (11.9-15.9); WHITE BLOOD COUNT 13.2 K/mm3 (4.0-10.0)
--- NOTE | 2018-06-16 09:38 | PN ---
Progress Note (short form) - Note Progress Note: Chief Complaint: Events noted, notes reviewed, denies any chest pain or dyspnea History of Present Illness: Seen and examined on telemetry. Events noted, notes reviewed, denies any chest pain or dyspnea - Current Medication List Current Medications Acetaminophen (Tylenol -) 650 mg PO Q6H PRN PRN Reason: FEVER Amlodipine Besylate (Norvasc -) 5 mg PO DAILY [facility] Last Admin: 06/16/18 10:27 Dose: 5 mg Apixaban (Eliquis -) 5 mg PO BID [facility] Last Admin: 06/16/18 10:28 Dose: 5 mg Dexamethasone (Decadron -) 20 mg PO SuWe@1000 [facility] Last Admin: 06/14/18 10:41 Dose: 20 mg Docusate Sodium (Colace -) 100 mg PO Q12H PRN PRN Reason: CONSTIPATION Levothyroxine Sodium (Synthroid -) 50 mcg PO DAILY@0700 [facility] Last Admin: 06/16/18 06:23 Dose: 50 mcg Magnesium Oxide (Mag-Ox -) 400 mg PO BID [facility] Last Admin: 06/16/18 10:26 Dose: 400 mg Metoprolol Succinate (Toprol Xl -) 75 mg PO BID [facility] Last Admin: 06/16/18 10:24 Dose: 75 mg Non-Formulary Medication (Lenalidomide [Revlimid]) 15 mg PO DAILY [facility] Stop: 06/30/18 10:01 Last Admin: 06/16/18 10:29 Dose: 15 mg Pantoprazole Sodium (Protonix -) 40 mg PO DAILY [facility] Last Admin: 06/16/18 10:27 Dose: 40 mg Paroxetine HCl (Paxil -) 30 mg PO DAILY [facility] Last Admin: 06/16/18 10:26 Dose: 30 mg Pregabalin (Lyrica -) 50 mg PO BID [facility] Last Admin: 06/16/18 10:27 Dose: 50 mg Tamsulosin HCl (Flomax -) 0.4 mg PO DAILY@0830 [facility] Last Admin: 06/16/18 10:28 Dose: 0.4 mg Valacyclovir HCl (Valtrex -) 500 mg PO DAILY [facility] Last Admin: 06/16/18 10:24 Dose: 500 mg Valsartan (Diovan -) 160 mg PO DAILY [facility] Last Admin: 06/16/18 10:24 Dose: 160 mg Review of Systems - Review of Systems Constitutional: no symptoms reported Respiratory: denies: Cough or Sputum Production Cardiovascular: As noted above Gastrointestinal: denies Nausea, Vomiting, Diarrhea, Constipation or Abdominal Pain Genitourinary: No symptoms reported Musculoskeletal: Degenerative Joint Disease, Persistent Leg discomfort as noted above Endocrine: No symptoms reported - Objective Vital Signs: Last Vital Signs Temp Pulse Resp BP Pulse Ox 98.7 F 78 18 98/64 96 06/16/18 10:00 06/16/18 10:00 06/16/18 10:00 06/16/18 10:00 06/15/18 21:00 Intake & Output 06/13/18 06/14/18 06/15/18 06/16/18 23:59 23:59 23:59 23:59 Intake Total 100 10 160 160 Balance 100 10 160 160 Weight 180 lb 180 lb 180 lb Constitutional: No Distress, Calm Neck: Supple Negative JVD No Bruit Cardiovascular: S1 S2 Regular Rate Rhythm Respiratory: Diminished Breath Sounds at the Bases Gastrointestinal: Soft Normal Bowel Sounds Colostomy in Situ Ext: No Edema Labs: CBC, BMP 06/16/18 05:30 06/16/18 05:30 Hepatic Panel Total Bilirubin 1.1 mg/dL (0.2-1) H 06/14/18 07:30 AST 14 U/L (15-37) L 06/14/18 07:30 ALT 38 U/L (13-61) 06/14/18 07:30 Alkaline Phosphatase 75 U/L (45-117) 06/14/18 07:30 Albumin 1.9 g/dl (3.4-5.0) L 06/14/18 07:30 Assessment/Plan ASSESSMENT: 1. Lethargy, resolved 2. Paroxysmal atrial fibrillation currently in sinus rhythm [id number] score of 3 on DOAC's 3. History of PSVT currently in sinus rhythm 4. 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 Diastolic LV dysfunction with class 0 NYHA classification LV failure 6. HTN 7. Hypothyroidism 8. History of multiple myeloma 9. 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 Anemia 11. History of diverticular perforation with purulent peritonitis post exploratory laparotomy and sigmoid resection/colostomy/abdominal washout PLAN: 1. Continue Toprol XL 2. Continue Eliquis unless it is absolutely contraindicated with close monitoring of CBC, maintain Hg equal or > 8.0 3. Continue Diovan, hemodynamics permitting 4. Continue Norvasc, hemodynamics permitting 5. PT Farhan Garrett M.D.
[2018-06-16] MEDS: VALSARTAN 160 MG TABLET (UD) PO SCH (10:24)
[2018-06-16] MEDS: valACYclovir HCL 500 MG TABLET (FP) PO SCH (10:24)
[2018-06-16] MEDS: PARoxetine HCL 20 MG TABLET (FP) PO SCH (10:26)
[2018-06-16] MEDS: MAGNESIUM OXIDE 400 MG TABLET (FP) PO SCH ×2 (10:26→21:34)
[2018-06-16] MEDS: amLODIPine BESYLATE 5 MG TABLET (FP) PO SCH (10:27)
[2018-06-16] MEDS: PREGABALIN 50 MG CAPSULE PO SCH ×2 (10:27→21:34)
[2018-06-16] MEDS: PANTOPRAZOLE 40 MG TABLET (FP) PO SCH (10:27)
[2018-06-16] MEDS: APIXABAN 5 MG TABLET PO SCH ×2 (10:28→21:34)
[2018-06-16] MEDS: TAMSULOSIN HCL 0.4 MG CAP PO SCH (10:28)
[2018-06-16] MEDS: LENALIDOMIDE 15 MG PO SCH (10:29)
--- NOTE | 2018-06-16 10:29 | PN ---
Progress Note, Physician History of Present Illness: patient stable improving weakness no complaints otherwise - Current Medication List Current Medications: Active Medications Acetaminophen (Tylenol -) 650 mg PO Q6H PRN PRN Reason: FEVER Amlodipine Besylate (Norvasc -) 5 mg PO DAILY [facility] Last Admin: 06/15/18 11:28 Dose: Not Given Apixaban (Eliquis -) 5 mg PO BID [facility] Last Admin: 06/15/18 22:09 Dose: 5 mg Dexamethasone (Decadron -) 20 mg PO SuWe@1000 [facility] Last Admin: 06/14/18 10:41 Dose: 20 mg Docusate Sodium (Colace -) 100 mg PO Q12H PRN PRN Reason: CONSTIPATION Levothyroxine Sodium (Synthroid -) 50 mcg PO DAILY@0700 [facility] Last Admin: 06/16/18 06:23 Dose: 50 mcg Magnesium Oxide (Mag-Ox -) 400 mg PO BID [facility] Last Admin: 06/15/18 22:09 Dose: 400 mg Metoprolol Succinate (Toprol Xl -) 75 mg PO BID [facility] Last Admin: 06/15/18 22:10 Dose: 75 mg Non-Formulary Medication (Lenalidomide [Revlimid]) 15 mg PO DAILY [facility] Stop: 06/30/18 10:01 Last Admin: 06/15/18 11:06 Dose: 15 mg Pantoprazole Sodium (Protonix -) 40 mg PO DAILY [facility] Last Admin: 06/15/18 11:11 Dose: 40 mg Paroxetine HCl (Paxil -) 30 mg PO DAILY [facility] Last Admin: 06/15/18 11:09 Dose: 30 mg Pregabalin (Lyrica -) 50 mg PO BID [facility] Last Admin: 06/15/18 22:09 Dose: 50 mg Tamsulosin HCl (Flomax -) 0.4 mg PO DAILY@0830 [facility] Last Admin: 06/15/18 11:05 Dose: 0.4 mg Valacyclovir HCl (Valtrex -) 500 mg PO DAILY [facility] Last Admin: 06/15/18 11:12 Dose: 500 mg Valsartan (Diovan -) 160 mg PO DAILY [facility] Last Admin: 06/15/18 11:28 Dose: Not Given - Objective Vital Signs: Vital Signs Temperature 98.7 F 06/16/18 10:00 Pulse Rate 78 06/16/18 10:00 Respiratory Rate 18 06/16/18 10:00 Blood Pressure 98/64 06/16/18 10:00 O2 Sat by Pulse Oximetry (%) 96 06/15/18 21:00 Constitutional: Yes: No Distress, Calm Cardiovascular: Yes: Regular Rate and Rhythm Respiratory: Yes: Regular, CTA Bilaterally Gastrointestinal: Yes: Normal Bowel Sounds, Soft Musculoskeletal: Yes: WNL Extremities: Yes: WNL Labs: CBC, BMP 06/16/18 05:30 06/16/18 05:30 INR, PTT INR 2.30 (0.83-1.09) H 06/13/18 17:30 Assessment/Plan Problem List - Problems (1) Sepsis Code(s): A41.9 - SEPSIS, UNSPECIFIED ORGANISM (2) CHEPE (acute kidney injury) Code(s): N17.9 - ACUTE KIDNEY FAILURE, UNSPECIFIED (3) Anemia Code(s): D64.9 - ANEMIA, UNSPECIFIED Qualifiers: Anemia type: unspecified type Qualified Code(s): D64.9 - Anemia, unspecified (4) CAD (coronary artery disease) Code(s): I25.10 - ATHSCL HEART DISEASE OF [place] CORONARY ARTERY W/O ANG PCTRS Qualifiers: Coronary Disease-Associated Artery/Lesion type: [place] artery [place] vs. transplanted heart: [place] heart Associated angina: without angina Qualified Code(s): I25.10 - Atherosclerotic heart disease of [place] coronary artery without angina pectoris (5) Elevated lactic acid level Code(s): R79.89 - OTHER SPECIFIED ABNORMAL FINDINGS OF BLOOD CHEMISTRY (6) Femur fracture Code(s): S72.90XA - UNSP FRACTURE OF UNSP FEMUR, INIT ENCNTR FOR CLOSED FRACTURE Qualifiers: Encounter type: subsequent encounter (7) Fever Code(s): R50.9 - FEVER, UNSPECIFIED Qualifiers: Encounter type: initial encounter (8) HTN (hypertension) Code(s): I10 - ESSENTIAL (PRIMARY) HYPERTENSION Qualifiers: Hypertension type: essential hypertension Qualified Code(s): I10 - Essential (primary) hypertension (9) History of open sigmoidectomy Code(s): Z98.89 - OTHER SPECIFIED POSTPROCEDURAL STATES * DO NOT USE * (10) Multiple myeloma Code(s): C90.00 - MULTIPLE MYELOMA NOT HAVING ACHIEVED REMISSION Qualifiers: Multiple myeloma remission status: not in remission Qualified Code(s): C90.00 - Multiple myeloma not having achieved remission (11) PAF (paroxysmal atrial fibrillation) Code(s): I48.0 - PAROXYSMAL ATRIAL FIBRILLATION (12) Perforated sigmoid colon Code(s): K63.1 - PERFORATION OF INTESTINE (NONTRAUMATIC) Assessment/Plan 78 y.o. male with history of parotid CA s/p resection, MM on Renalidomide , Atrial fibrillation, CAD, HLD, sigmoid colon perforation s/p colostomy, hypothyroidism, femur fracture, and frequent falls with rib fractures presents due to extreme weakness/lethargy, fever, cough with elevated lactate level, tachycardia plan continue current mgmt patient stable close watch rest as per the team nutrition when stable physio
[2018-06-16 11:10] LABS: ANISOCYTOSIS 1+; MACROCYTOSIS 1+; OVALOCYTE 1+; PLATELET ESTIMATE NORMAL
--- NOTE | 2018-06-16 11:31 | PN ---
Progress Note, VINYL TOP INSTALLER - Note Progress Note: Seen by Speech Pathology on 06/15: Impression: Pt presents with mild to moderate mallory-pharyngeal dysphagia for solids and liquids with positive s/s of aspiration for thin liquids. Pt is able to tolerate puree and honey thicken liquids at bedside without signs of aspiration. Halfway Goals: tolerate the least retrictive diet without s/s of aspiration. Short Term Goals: tolerate purees and honey thicken liquids without s/s aspiration. - Dysphagia Impressions/Plan Swallowing Skills: Impaired Dysphagia Impressions: Moderate Impairment (secondary to right side facial paralysis.), Risk of Aspiration, Suspect Aspiration *Silent aspiration: cannot be R/O at bedside Dysphagia Treatment Plan: Small Bites, Trial Feedings (pureed with honey thicken liquids), Safe Rate, 1/2 tsp. at a time, Elevate HOB during feed, Other (monitor nutritional intake and pulmonary status.) Dysphagia Evaluation Summary: Trial pureed with honey thicken liquids as tolerated. Crush meds for safety. Observe standard aspiration precautions VINYL TOP INSTALLER to follow up for diet tolerance and possible upgrade. Results given verbally to charge weigher and to pcp via chart. - Recommendations Diet Consistency: Dysphagia Pureed Medication Administration: Crushed with applesauce Liquids: Honey Thick Selected Entries Last 2013, stasis with spillage over BOT. Pt was on chopped/thin liquid at that time. 06/15/18 06/15/18 06/15/18 02:00 06:10 14:00 Supper Temperature 97.4 F L 97.9 F 97.6 F 06/15/18 06/15/18 06/16/18 18:00 22:00 02:00 Supper 50% Temperature 98.0 F 98.2 F 97.1 F L 06/16/18 06/16/18 06:00 10:00 Supper Temperature 98.8 F 98.7 F Laboratory Tests 06/14/18 06/15/18 06/16/18 05:30 05:30 05:30 WBC 9.1 10.5 H 13.2 H Per nursing:Respirations easy, non-labored at rest but increases with minimal activity. Lungs diminished with coarse scattered rhonchi bilat - O2 saturation 94%-96% on 2L N/C Pt was on a reg diet/thin liquids at home.Pt tolerating puree/honey thick liquid overtly. Cough response with sip of thin water. REC: Continue puree/honey for now. Pt on Decadron, possibly related to elevated WBC? Repeat CXR? MBS to upgrade diet with safety to most liberal diet pt can tolerate.
--- NOTE | 2018-06-16 14:02 | PN ---
Progress Note, Physician Chief Complaint: in NSR no c/o fever or SOB feels weak - Current Medication List Current Medications: Active Medications Acetaminophen (Tylenol -) 650 mg PO Q6H PRN PRN Reason: FEVER Amlodipine Besylate (Norvasc -) 5 mg PO DAILY [facility] Last Admin: 06/16/18 10:27 Dose: 5 mg Apixaban (Eliquis -) 5 mg PO BID [facility] Last Admin: 06/16/18 10:28 Dose: 5 mg Dexamethasone (Decadron -) 20 mg PO SuWe@1000 [facility] Last Admin: 06/14/18 10:41 Dose: 20 mg Docusate Sodium (Colace -) 100 mg PO Q12H PRN PRN Reason: CONSTIPATION Levothyroxine Sodium (Synthroid -) 50 mcg PO DAILY@0700 [facility] Last Admin: 06/16/18 06:23 Dose: 50 mcg Magnesium Oxide (Mag-Ox -) 400 mg PO BID [facility] Last Admin: 06/16/18 10:26 Dose: 400 mg Metoprolol Succinate (Toprol Xl -) 75 mg PO BID [facility] Last Admin: 06/16/18 10:24 Dose: 75 mg Non-Formulary Medication (Lenalidomide [Revlimid]) 15 mg PO DAILY [facility] Stop: 06/30/18 10:01 Last Admin: 06/16/18 10:29 Dose: 15 mg Pantoprazole Sodium (Protonix -) 40 mg PO DAILY [facility] Last Admin: 06/16/18 10:27 Dose: 40 mg Paroxetine HCl (Paxil -) 30 mg PO DAILY [facility] Last Admin: 06/16/18 10:26 Dose: 30 mg Pregabalin (Lyrica -) 50 mg PO BID [facility] Last Admin: 06/16/18 10:27 Dose: 50 mg Tamsulosin HCl (Flomax -) 0.4 mg PO DAILY@0830 [facility] Last Admin: 06/16/18 10:28 Dose: 0.4 mg Valacyclovir HCl (Valtrex -) 500 mg PO DAILY [facility] Last Admin: 06/16/18 10:24 Dose: 500 mg Valsartan (Diovan -) 160 mg PO DAILY [facility] Last Admin: 06/16/18 10:24 Dose: 160 mg - Objective Vital Signs: Vital Signs Temperature 98.7 F 06/16/18 10:00 Pulse Rate 78 10/02/18 10:00 Respiratory Rate 18 06/16/18 10:00 Blood Pressure 98/64 06/16/18 10:00 O2 Sat by Pulse Oximetry (%) 96 06/15/18 21:00 Elderly sick looking male c/o feeling weak and chest congestion. HEENT: Mm dry, RT eye Ocluder Rt facial droop at base line NECK Supple, No JVd No Bruit CHEST: B/L crepts CVS: S1S2 R no m/g/r ABD: colostomy at place, No distention, non tender Bs + EXT: Trace edema feet, pulses + STITCHDOWN TOE FORMER: alert Rt sided Infranuclear facial N otherwise non focal. Labs: CBC, BMP 06/16/18 05:30 06/16/18 05:30 INR, PTT INR 2.30 (0.83-1.09) H 06/13/18 17:30 Problem List - Problems (1) Aspiration pneumonia Assessment/Plan: CXR shows few opacities and healing ribs fracture, no fever, elevated TWBC due to steroid so abx stopped by ID will F/U clinical course, add ON LDH Code(s): J69.0 - PNEUMONITIS DUE TO INHALATION OF FOOD AND VOMIT Qualifiers: Aspiration pneumonia type: unspecified Laterality: unspecified laterality Lung location: unspecified part of lung Qualified Code(s): J69.0 - Pneumonitis due to inhalation of food and vomit (2) Paroxysmal A-fib Assessment/Plan: Had an episode of Afib with RVR responded to IV Diltizem converted to NSR cont Eliquis Code(s): I48.0 - PAROXYSMAL ATRIAL FIBRILLATION (3) HTN (hypertension) Assessment/Plan: Cont Home medications Code(s): I10 - ESSENTIAL (PRIMARY) HYPERTENSION Qualifiers: Hypertension type: essential hypertension Qualified Code(s): I10 - Essential (primary) hypertension (4) Anemia Assessment/Plan: Chronic H/H are stable Code(s): D64.9 - ANEMIA, UNSPECIFIED Qualifiers: Anemia type: unspecified type Qualified Code(s): D64.9 - Anemia, unspecified (5) Colostomy status Assessment/Plan: s/p colon perforation in the past Code(s): Z93.3 - COLOSTOMY STATUS (6) Malnutrition Assessment/Plan: Nutrition evaluation. Code(s): E46 - UNSPECIFIED PROTEIN-CALORIE MALNUTRITION
--- NOTE | 2018-06-16 19:21 | PN ---
Physical Exam: SUBJECTIVE: Patient seen and examined at bedside. No overnight events. No new complaints.He continues to have cough. He still remains very weak. He is in some pain but does not request pain medication as he should. His appetite is poor. Denies CP, DOSHI, abdominal pain, nausea or vomiting. OBJECTIVE: Vital Signs Period Temp Pulse Resp BP Sys/[place] Pulse Ox Last 24 Hr 97.1 F-98.8 F 66-78 18-20 80-103/56-75 96-96 GENERAL: AAOx3, NAD frail and weak. HEAD: NCAT, Right sided facial droop EYES: RIght eye patched. EARS, NOSE, THROAT: Dry mucous membranes. LUNGS: diminished breath sounds bilaterally, Scattered Rhonchi. HEART:irregularly irregular, NL S1S2, No m/g/r ABDOMEN: soft, NTND, NABS, colostomy in place. MUSCULOSKELETAL:decreased ROM in LE R>L. No CVA tenderness. UPPER EXTREMITIES: 2+ pulses, warm, well-perfused. No cyanosis. No clubbing.No peripheral edema. LOWER EXTREMITIES: 2+ pulses, warm, well-perfused. No calf tenderness. No peripheral edema. NEUROLOGICAL: 4/5 strength in bilateral upper ext. and LLE. 3/5 strength in RLE. Sensation intact. PSYCHIATRIC: Cooperative. Good eye contact. Appropriate mood and affect. Laboratory Results - last 24 hr 06/16/18 06/16/18 05:30 05:30 WBC 13.2 H RBC 2.88 L Hgb 9.2 L Hct 28.8 L MCV 100.0 H MCH 31.9 MCHC 31.9 L RDW 18.1 H Plt Count 241 MPV 9.0 Absolute Neuts (auto) 12.3 H Neutrophils % 93.4 H Neutrophils % (Manual) 90.0 H Band Neutrophils % 1.0 Lymphocytes % 2.0 L Lymphocytes % (Manual) 3.0 L D Monocytes % 4.1 Monocytes % (Manual) 5 Eosinophils % 0.3 D Eosinophils % (Manual) 1.0 D Basophils % 0.2 Basophils % (Manual) 0.0 Myelocytes % (Man) 0 Promyelocytes % (Man) 0 Blast Cells % (Manual) 0 Nucleated RBC % 0 Metamyelocytes 0 Hypochromia 1+ Platelet Estimate Normal Polychromasia 0 Poikilocytosis 1+ Anisocytosis 1+ Microcytosis 1+ Macrocytosis 1+ Ovalocytes 1+ Schistocytes 1+ Sodium 146 H Potassium 4.2 Chloride 109 H Carbon Dioxide 28 Anion Gap 9 BUN 29 H Creatinine 0.6 Creat Clearance w eGFR > 60 Random Glucose 71 L Calcium 8.8 Active Medications Generic Name Dose Route Start Last Admin Trade Name Freq PRN Reason Stop Dose Admin Acetaminophen 650 mg 06/13/18 19:29 Tylenol - PO Q6H PRN FEVER Amlodipine Besylate 5 mg 06/14/18 10:00 06/16/18 10:27 Norvasc - PO 5 mg DAILY [facility] Administration Apixaban 5 mg 06/13/18 22:00 06/16/18 10:28 Eliquis - PO 5 mg BID [facility] Administration Dexamethasone 20 mg 06/14/18 10:00 06/14/18 10:41 Decadron - PO 20 mg SuWe@1000 [facility] Administration Docusate Sodium 100 mg 06/13/18 19:29 Colace - PO Q12H PRN CONSTIPATION Levothyroxine Sodium 50 mcg 06/14/18 07:00 06/16/18 06:23 Synthroid - PO 50 mcg DAILY@0700 [facility] Administration Magnesium Oxide 400 mg 06/14/18 10:00 06/16/18 10:26 Mag-Ox - PO 400 mg BID [facility] Administration Metoprolol Succinate 75 mg 06/13/18 22:00 06/16/18 10:24 Toprol Xl - PO 75 mg BID [facility] Administration Non-Formulary Medication 15 mg 06/15/18 10:00 06/16/18 10:29 Lenalidomide [Revlimid] PO 06/30/18 10:01 15 mg DAILY [facility] Administration Pantoprazole Sodium 40 mg 06/14/18 10:00 06/16/18 10:27 Protonix - PO 40 mg DAILY [facility] Administration Paroxetine HCl 30 mg 06/14/18 10:00 06/16/18 10:26 Paxil - PO 30 mg DAILY [facility] Administration Pregabalin 50 mg 06/13/18 22:00 06/16/18 10:27 Lyrica - PO 50 mg BID [facility] Administration Tamsulosin HCl 0.4 mg 06/14/18 08:30 06/16/18 10:28 Flomax - PO 0.4 mg DAILY@0830 [facility] Administration Valacyclovir HCl 500 mg 06/14/18 10:00 06/16/18 10:24 Valtrex - PO 500 mg DAILY [facility] Administration Valsartan 160 mg 06/14/18 10:00 06/16/18 10:24 Diovan - PO 160 mg DAILY [facility] Administration ASSESSMENT/PLAN: 78 yrs old man multiple medical co-morbidities with history of MM admitted to possible aspiration PNA and found to be volume depleted and anemic. Problem List - Problems (1) Multiple myeloma Assessment/Plan: Multiple Myeloma with extensive bony and spine involvement. * not in remission * Will hold Revlimib for now from oncology standpoint. * Will get nutrition consult * PT for passive ROM * Fentalyl 12mcg patch TD . (2) Aspiration pneumonia Assessment/Plan: ID consult appreciated. * Abx held. * hydration. Qualifiers: Aspiration pneumonia type: unspecified Laterality: unspecified laterality Lung location: unspecified part of lung Qualified Code(s): J69.0 - Pneumonitis due to inhalation of food and vomit (3) Paroxysmal A-fib Assessment/Plan: On eliquis for AC * Continue AC with Eliquis. (4) Anemia Assessment/Plan: Chronic anemia. Volume depleted on admission. * His drop in Hgb most likely dilutional back at baseline. * Normal transfusion thresholds. * Continue to Monitor H/H (5) HTN (hypertension) Visit type - Emergency Visit Emergency Visit: Yes ED Registration Date: 06/13/18 Care time: The patient presented to the Emergency Department on the above date and was hospitalized for further evaluation of their emergent condition. - New Patient This patient is new to me today: No - Critical Care Critical Care patient: No
[2018-06-16] MEDS ORDERED: FENTANYL PATCH WASTE MC PRN (19:30)
--- NOTE | 2018-06-16 19:41 | PN ---
Teaching Attending Note Name of Resident: Korey Morris ATTENDING PHYSICIAN STATEMENT I saw and evaluated the patient. I reviewed the resident's note and discussed the case with the resident. I agree with the resident's findings and plan as documented. SUBJECTIVE: Patient seen and examined Weak , cachectic, bed ridden, anorechtic No definite aspiration on X-ray. ?micro aspiration To hold revlimid. has had good response to treatment with significant decrease in paraprotein Will resume when clinical status improves. Has multiple rib mets, compression fractures. Will give Fentanyl for pain ; PT and nutrition evaluation. IV hydration . OBJECTIVE: ASSESSMENT AND PLAN:
[2018-06-16] MEDS: SODIUM CHLORIDE 500 ML IV SCH (21:10)
[2018-06-16] MEDS: fentaNYL 12mcg/hr PATCH.TD72 TD SCH (21:33)
[2018-06-17] MEDS: LEVOTHYROXINE NA 50 MCG TABLET (FP) PO SCH (06:55)
[2018-06-17 07:48] LABS: BASO % 0.2 % (0-2.0); HEMATOCRIT 27.3 % (35.4-49); HEMOGLOBIN 8.5 GM/dL (11.7-16.9); LYMPH % 2.7 % (8-40); MCH 31.8 pg (25.7-33.7); MCHC 31.3 g/dl (32.0-35.9); MEAN CELL VOLUME 101.9 fl (80-96); MEAN PLT VOLUME 8.9 fl (7.5-11.1); MONO % 9.3 % (3.8-10.2); NEUT % 86.8 % (42.8-82.8); PLATELET COUNT 207 K/MM3 (134-434); RBC 2.68 M/mm3 (4.00-5.60); WHITE BLOOD COUNT 10.4 K/mm3 (4.0-10.0)
[2018-06-17 08:19] LABS: ALBUMIN 1.8 g/dl (3.4-5.0); ALK PHOS 80 U/L (45-117); ANION GAP 9 MMOL/L (8-16); BILIRUBIN,TOTAL 0.8 mg/dL (0.2-1); BLOOD UREA NITROGEN 23 mg/dL (7-18); CALCIUM 8.1 mg/dL (8.5-10.1); CHLORIDE 111 mmol/L (98-107); CO2 26 mmol/L (21-32); CREATININE 0.5 mg/dL (0.55-1.3); GLUCOSE,RANDOM 77 mg/dL (74-106); POTASSIUM 3.9 mmol/L (3.5-5.1); SGOT/AST 29 U/L (15-37); SGPT/ALT 46 U/L (13-61); SODIUM 146 mmol/L (136-145); TOT PROT 4.8 g/dl (6.4-8.2)
[2018-06-17] MEDS: TAMSULOSIN HCL 0.4 MG CAP PO SCH (10:47)
[2018-06-17] MEDS: PARoxetine HCL 20 MG TABLET (FP) PO SCH (10:48)
[2018-06-17] MEDS: valACYclovir HCL 500 MG TABLET (FP) PO SCH (10:48)
[2018-06-17] MEDS: PANTOPRAZOLE 40 MG TABLET (FP) PO SCH (10:48)
[2018-06-17] MEDS: MAGNESIUM OXIDE 400 MG TABLET (FP) PO SCH ×2 (10:49→21:33)
[2018-06-17] MEDS: DEXAMETHASONE 4 MG TABLET (FP) PO SCH (10:50)
[2018-06-17] MEDS: VALSARTAN 160 MG TABLET (UD) PO SCH (10:50)
[2018-06-17] MEDS: APIXABAN 5 MG TABLET PO SCH ×2 (10:50→21:32)
[2018-06-17] MEDS: amLODIPine BESYLATE 5 MG TABLET (FP) PO SCH (10:52)
[2018-06-17] MEDS: PREGABALIN 50 MG CAPSULE PO SCH ×2 (10:52→21:33)
[2018-06-17] MEDS: LENALIDOMIDE 15 MG PO SCH (10:52)
--- NOTE | 2018-06-17 11:33 | PN ---
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 Multiple Myeloma with extensive bony and spine involvement, not in remission MBS with risk of aspiration with weak swallow and stasis in pharynx. Risk of dehydration, malnutrition, aspiration. Selected Entries 06/16/18 06/16/18 06/16/18 02:00 06:00 10:00 Supper Temperature 97.1 F L 98.8 F 98.7 F 06/16/18 06/16/18 06/16/18 14:00 17:30 19:56 Supper 25% Temperature 98.6 F 98.0 F 06/16/18 06/17/18 06/17/18 22:00 02:00 06:00 Supper Temperature 98.0 F 98.2 F 97.6 F 06/17/18 10:46 Supper Temperature 98 F Laboratory Tests 06/16/18 05:30 WBC 13.2 H Encourage Magic cup/Ensure opudding. Honey thick on tsp only. Encourage multiple, hard swallows.
--- NOTE | 2018-06-17 11:47 | PN ---
Progress Note, Physician History of Present Illness: Weak , cachectic, bed ridden, anorectic - Current Medication List Current Medications: Active Medications Acetaminophen (Tylenol -) 650 mg PO Q6H PRN PRN Reason: FEVER Amlodipine Besylate (Norvasc -) 5 mg PO DAILY [facility] Last Admin: 06/17/18 10:52 Dose: 5 mg Apixaban (Eliquis -) 5 mg PO BID [facility] Last Admin: 06/17/18 10:50 Dose: 5 mg Dexamethasone (Decadron -) 20 mg PO SuWe@1000 [facility] Last Admin: 06/17/18 10:50 Dose: 20 mg Docusate Sodium (Colace -) 100 mg PO Q12H PRN PRN Reason: CONSTIPATION Fentanyl (Duragesic 12mcg Patch -) 1 patch TD Q72H [facility] Stop: 06/23/18 19:30 Last Admin: 06/16/18 21:33 Dose: 1 patch Sodium Chloride (Normal Saline -) 500 mls @ 125 mls/hr IV ASDIR [facility] Last Admin: 06/16/18 21:10 Dose: 125 mls/hr Levothyroxine Sodium (Synthroid -) 50 mcg PO DAILY@0700 [facility] Last Admin: 06/17/18 06:55 Dose: 50 mcg Magnesium Oxide (Mag-Ox -) 400 mg PO BID [facility] Last Admin: 06/17/18 10:49 Dose: 400 mg Metoprolol Succinate (Toprol Xl -) 75 mg PO BID [facility] Last Admin: 06/17/18 10:48 Dose: 75 mg Miscellaneous (Duragesic Patch Waste) 1 each [facility] PRN PRN PRN Reason: PAIN Non-Formulary Medication (Lenalidomide [Revlimid]) 15 mg PO DAILY [facility] Stop: 06/30/18 10:01 Last Admin: 06/17/18 10:52 Dose: 15 mg Pantoprazole Sodium (Protonix -) 40 mg PO DAILY [facility] Last Admin: 06/17/18 10:48 Dose: 40 mg Paroxetine HCl (Paxil -) 30 mg PO DAILY [facility] Last Admin: 06/17/18 10:48 Dose: 30 mg Pregabalin (Lyrica -) 50 mg PO BID [facility] Last Admin: 06/17/18 10:52 Dose: 50 mg Tamsulosin HCl (Flomax -) 0.4 mg PO DAILY@0830 [facility] Last Admin: 06/17/18 10:47 Dose: 0.4 mg Valacyclovir HCl (Valtrex -) 500 mg PO DAILY [facility] Last Admin: 06/17/18 10:48 Dose: 500 mg Valsartan (Diovan -) 160 mg PO DAILY [facility] Last Admin: 06/17/18 10:50 Dose: 160 mg - Objective Vital Signs: Vital Signs Temperature 98 F 06/17/18 10:46 Pulse Rate 65 06/17/18 10:46 Respiratory Rate 20 06/17/18 10:46 Blood Pressure 123/72 06/17/18 10:46 O2 Sat by Pulse Oximetry (%) 96 06/16/18 21:00 Constitutional: Yes: No Distress, Calm, Cachectic Neck: Yes: Supple Cardiovascular: Yes: Regular Rate and Rhythm Respiratory: Yes: Regular, Diminished, On Nasal O2 Gastrointestinal: Yes: Normal Bowel Sounds, Soft Edema: No Labs: CBC, BMP 06/17/18 06:26 06/17/18 06:26 INR, PTT INR 2.30 (0.83-1.09) H 06/13/18 17:30 - ....Imaging EKG: Report Reviewed (Tele: paf->sr) Problem List - Problems (1) Malnutrition Code(s): E46 - UNSPECIFIED PROTEIN-CALORIE MALNUTRITION Qualifiers: Protein-calorie malnutrition severity: unspecified severity (2) Paroxysmal A-fib Code(s): I48.0 - PAROXYSMAL ATRIAL FIBRILLATION (3) Anemia Code(s): D64.9 - ANEMIA, UNSPECIFIED Qualifiers: Anemia type: unspecified type Qualified Code(s): D64.9 - Anemia, unspecified (4) Anticoagulant long-term use Code(s): Z79.01 - INTERMEDIATE (CURRENT) USE OF ANTICOAGULANTS (5) CAD (coronary artery disease) Code(s): I25.10 - ATHSCL HEART DISEASE OF [place] CORONARY ARTERY W/O ANG PCTRS Qualifiers: Coronary Disease-Associated Artery/Lesion type: [place] artery [place] vs. transplanted heart: [place] heart Associated angina: without angina Qualified Code(s): I25.10 - Atherosclerotic heart disease of [place] coronary artery without angina pectoris (6) HTN (hypertension) Code(s): I10 - ESSENTIAL (PRIMARY) HYPERTENSION Qualifiers: Hypertension type: essential hypertension Qualified Code(s): I10 - Essential (primary) hypertension (7) Hypothyroidism Code(s): E03.9 - HYPOTHYROIDISM, UNSPECIFIED Qualifiers: Hypothyroidism type: unspecified Qualified Code(s): E03.9 - Hypothyroidism , unspecified (8) Multiple myeloma Code(s): C90.00 - MULTIPLE MYELOMA NOT HAVING ACHIEVED REMISSION Qualifiers: Multiple myeloma remission status: not in remission Qualified Code(s): C90.00 - Multiple myeloma not having achieved remission Assessment/Plan 1. Failure to thrive, anorexia 2. Paroxysmal atrial fibrillation currently in sinus rhythm [id number] score of 3 on DOAC's 3. History of PSVT currently in sinus rhythm 4. 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 Diastolic LV dysfunction with class 0 NYHA classification LV failure 6. HTN 7. Hypothyroidism 8. History of multiple myeloma with multiple rib mets, compression fractures. 9. 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 Anemia 11. History of diverticular perforation with purulent peritonitis post exploratory laparotomy and sigmoid resection/colostomy/abdominal washout PLAN: 1. Continue Toprol XL 75 bid 2. Continue Eliquis 5 bid with close monitoring of CBC and GI protection, maintain Hg equal or > 8.0 3. Continue Diovan 160 qd, hemodynamics permitting 4. Continue Norvasc 5 qd, hemodynamics permitting 5. Revlimid held per heme/onc to resume when clinical status improves. 6. Analgesia as needed, PT as tolerated, nutrition
--- NOTE | 2018-06-17 12:56 | PN ---
Progress Note, Physician History of Present Illness: stable weak no complaints - Current Medication List Current Medications: Active Medications Acetaminophen (Tylenol -) 650 mg PO Q6H PRN PRN Reason: FEVER Amlodipine Besylate (Norvasc -) 5 mg PO DAILY [facility] Last Admin: 06/17/18 10:52 Dose: 5 mg Apixaban (Eliquis -) 5 mg PO BID [facility] Last Admin: 06/17/18 10:50 Dose: 5 mg Dexamethasone (Decadron -) 20 mg PO SuWe@1000 [facility] Last Admin: 06/17/18 10:50 Dose: 20 mg Docusate Sodium (Colace -) 100 mg PO Q12H PRN PRN Reason: CONSTIPATION Fentanyl (Duragesic 12mcg Patch -) 1 patch TD Q72H [facility] Stop: 06/23/18 19:30 Last Admin: 06/16/18 21:33 Dose: 1 patch Sodium Chloride (Normal Saline -) 500 mls @ 125 mls/hr IV ASDIR [facility] Last Admin: 06/16/18 21:10 Dose: 125 mls/hr Levothyroxine Sodium (Synthroid -) 50 mcg PO DAILY@0700 [facility] Last Admin: 06/17/18 06:55 Dose: 50 mcg Magnesium Oxide (Mag-Ox -) 400 mg PO BID [facility] Last Admin: 06/17/18 10:49 Dose: 400 mg Metoprolol Succinate (Toprol Xl -) 75 mg PO BID [facility] Last Admin: 06/17/18 10:48 Dose: 75 mg Miscellaneous (Duragesic Patch Waste) 1 each [facility] PRN PRN PRN Reason: PAIN Non-Formulary Medication (Lenalidomide [Revlimid]) 15 mg PO DAILY [facility] Stop: 06/30/18 10:01 Last Admin: 06/17/18 10:52 Dose: 15 mg Pantoprazole Sodium (Protonix -) 40 mg PO DAILY [facility] Last Admin: 06/17/18 10:48 Dose: 40 mg Paroxetine HCl (Paxil -) 30 mg PO DAILY [facility] Last Admin: 06/17/18 10:48 Dose: 30 mg Pregabalin (Lyrica -) 50 mg PO BID [facility] Last Admin: 06/17/18 10:52 Dose: 50 mg Tamsulosin HCl (Flomax -) 0.4 mg PO DAILY@0830 [facility] Last Admin: 06/17/18 10:47 Dose: 0.4 mg Valacyclovir HCl (Valtrex -) 500 mg PO DAILY [facility] Last Admin: 06/17/18 10:48 Dose: 500 mg Valsartan (Diovan -) 160 mg PO DAILY [facility] Last Admin: 06/17/18 10:50 Dose: 160 mg - Objective Vital Signs: Vital Signs Temperature 98 F 06/17/18 10:46 Pulse Rate 65 06/17/18 10:46 Respiratory Rate 20 06/17/18 10:46 Blood Pressure 123/72 06/17/18 10:46 O2 Sat by Pulse Oximetry (%) 96 06/17/18 09:00 Constitutional: Yes: No Distress, Calm Cardiovascular: Yes: Regular Rate and Rhythm Respiratory: Yes: Regular, CTA Bilaterally Gastrointestinal: Yes: Normal Bowel Sounds, Soft Musculoskeletal: Yes: WNL Extremities: Yes: WNL Neurological: Yes: Alert, Oriented Psychiatric: Yes: Alert, Oriented Labs: CBC, BMP 06/17/18 06:26 06/17/18 06:26 INR, PTT INR 2.30 (0.83-1.09) H 06/13/18 17:30 Assessment/Plan Problem List - Problems (1) Sepsis Code(s): A41.9 - SEPSIS, UNSPECIFIED ORGANISM (2) CHEPE (acute kidney injury) Code(s): N17.9 - ACUTE KIDNEY FAILURE, UNSPECIFIED (3) Anemia Code(s): D64.9 - ANEMIA, UNSPECIFIED Qualifiers: Anemia type: unspecified type Qualified Code(s): D64.9 - Anemia, unspecified (4) CAD (coronary artery disease) Code(s): I25.10 - ATHSCL HEART DISEASE OF [place] CORONARY ARTERY W/O ANG PCTRS Qualifiers: Coronary Disease-Associated Artery/Lesion type: [place] artery [place] vs. transplanted heart: [place] heart Associated angina: without angina Qualified Code(s): I25.10 - Atherosclerotic heart disease of [place] coronary artery without angina pectoris (5) Elevated lactic acid level Code(s): R79.89 - OTHER SPECIFIED ABNORMAL FINDINGS OF BLOOD CHEMISTRY (6) Femur fracture Code(s): S72.90XA - UNSP FRACTURE OF UNSP FEMUR, INIT ENCNTR FOR CLOSED FRACTURE Qualifiers: Encounter type: subsequent encounter (7) Fever Code(s): R50.9 - FEVER, UNSPECIFIED Qualifiers: Encounter type: initial encounter (8) HTN (hypertension) Code(s): I10 - ESSENTIAL (PRIMARY) HYPERTENSION Qualifiers: Hypertension type: essential hypertension Qualified Code(s): I10 - Essential (primary) hypertension (9) History of open sigmoidectomy Code(s): Z98.89 - OTHER SPECIFIED POSTPROCEDURAL STATES * DO NOT USE * (10) Multiple myeloma Code(s): C90.00 - MULTIPLE MYELOMA NOT HAVING ACHIEVED REMISSION Qualifiers: Multiple myeloma remission status: not in remission Qualified Code(s): C90.00 - Multiple myeloma not having achieved remission (11) PAF (paroxysmal atrial fibrillation) Code(s): I48.0 - PAROXYSMAL ATRIAL FIBRILLATION (12) Perforated sigmoid colon Code(s): K63.1 - PERFORATION OF INTESTINE (NONTRAUMATIC) Assessment/Plan 78 y.o. male with history of parotid CA s/p resection, MM on Renalidomide , Atrial fibrillation, CAD, HLD, sigmoid colon perforation s/p colostomy, hypothyroidism, femur fracture, and frequent falls with rib fractures presents due to extreme weakness/lethargy, fever, cough with elevated lactate level, tachycardia plan continue current mgmt patient stable close watch rest as per the team nutrition when stable physio wbc normalizing
--- NOTE | 2018-06-17 20:11 | PN ---
Progress Note (short form) - Note Progress Note: Patient seen and examined Remains weak , cachectic, with poor p.o. intake Last Vital Signs Temp Pulse Resp BP Pulse Ox 98.7 F 60 18 97/64 96 06/17/18 17:30 06/17/18 17:30 06/17/18 17:30 06/17/18 17:30 06/17/18 09:00 HEENT: right eye drainage right neck dissection Oropharynx: No thrush, No mucositis Nodes: Without adenopathy Cor: RSR, No murmurs, No gallops Lungs: diminished breath sounds Abd: Soft, Normal bowel sounds, No organomegaly Ext:No significant edema Skin: No rashes, Integument intact CBC, BMP 06/17/18 06:26 06/17/18 06:26 Microbiology 06/13/18 17:45 Blood - Peripheral Venous Blood Culture - Preliminary NO GROWTH OBTAINED AFTER 96 HOURS, INCUBATION TO CONTINUE FOR 1 DAYS. 06/13/18 17:45 Blood - Peripheral Venous Blood Culture - Preliminary NO GROWTH OBTAINED AFTER 96 HOURS, INCUBATION TO CONTINUE FOR 1 DAYS. Current Medications Generic Name Dose Route Start Last Admin Trade Name Freq PRN Reason Stop Dose Admin Acetaminophen 650 mg 06/13/18 19:29 Tylenol - PO Q6H PRN FEVER Amlodipine Besylate 5 mg 06/14/18 10:00 06/17/18 10:52 Norvasc - PO 5 mg DAILY BERE Administration Apixaban 5 mg 06/13/18 22:00 06/17/18 10:50 Eliquis - PO 5 mg BID BERE Administration Dexamethasone 20 mg 06/14/18 10:00 06/17/18 10:50 Decadron - PO 20 mg SuWe@1000 BERE Administration Docusate Sodium 100 mg 06/13/18 19:29 Colace - PO Q12H PRN CONSTIPATION Fentanyl 1 patch 06/16/18 19:30 06/16/18 21:33 Duragesic 12mcg Patch - TD 06/23/18 19:30 1 patch Q72H BERE Administration Sodium Chloride 500 mls @ 125 mls/hr 06/16/18 20:45 06/16/18 21:10 Normal Saline - IV 125 mls/hr ASDIR BERE Administration Levothyroxine Sodium 50 mcg 06/14/18 07:00 06/17/18 06:55 Synthroid - PO 50 mcg DAILY@0700 BERE Administration Magnesium Oxide 400 mg 06/14/18 10:00 06/17/18 10:49 Mag-Ox - PO 400 mg BID BERE Administration Metoprolol Succinate 75 mg 06/13/18 22:00 06/17/18 10:48 Toprol Xl - PO 75 mg BID BERE Administration Miscellaneous 1 each 06/16/18 19:30 Duragesic Patch Waste MC PRN PRN PAIN Impression: Non-Formulary Medication 15 mg 06/15/18 10:00 06/17/18 10:52 Lenalidomide [Revlimid] PO 06/30/18 10:01 15 mg DAILY BERE Administration Pantoprazole Sodium 40 mg 06/14/18 10:00 06/17/18 10:48 Protonix - PO 40 mg DAILY BERE Administration Paroxetine HCl 30 mg 06/14/18 10:00 06/17/18 10:48 Paxil - PO 30 mg DAILY BERE Administration Pregabalin 50 mg 06/13/18 22:00 06/17/18 10:52 Lyrica - PO 50 mg BID BERE Administration Tamsulosin HCl 0.4 mg 06/14/18 08:30 06/17/18 10:47 Flomax - PO 0.4 mg DAILY@0830 BERE Administration Valacyclovir HCl 500 mg 06/14/18 10:00 06/17/18 10:48 Valtrex - PO 500 mg DAILY BERE Administration Valsartan 160 mg 06/14/18 10:00 06/17/18 10:50 Diovan - PO 160 mg DAILY BERE Administration Impression: Myeloma - not in remission Cachexia Failure to thrive ? infection Bone mets Plan : discontinue Revlimid, diovan, decadron IV hydration Dietary PT
[2018-06-17] MEDS: D5-1/2NS+20 MEQ KCL - 20 MEQ/1,000 ML INFUS.BAG IV SCH (21:34)
[2018-06-18] MEDS: LEVOTHYROXINE NA 50 MCG TABLET (FP) PO SCH (06:22)
[2018-06-18 07:16] LABS: BASO % 0.2 % (0-2.0); HEMATOCRIT 27.1 % (35.4-49); HEMOGLOBIN 8.5 GM/dL (11.7-16.9); LYMPH % 2.5 % (8-40); MCHC 31.4 g/dl (32.0-35.9); MEAN CELL VOLUME 101.9 fl (80-96); MEAN PLT VOLUME 9.5 fl (7.5-11.1); MONO % 8.2 % (3.8-10.2); NEUT % 89.1 % (42.8-82.8); PLATELET COUNT 209 K/MM3 (134-434); RBC 2.66 M/mm3 (4.00-5.60); RDW 18.2 % (11.9-15.9); WHITE BLOOD COUNT 8.4 K/mm3 (4.0-10.0)
[2018-06-18 07:45] LABS: ALBUMIN 1.7 g/dl (3.4-5.0); ALK PHOS 75 U/L (45-117); ANION GAP 8 MMOL/L (8-16); BILIRUBIN,TOTAL 0.4 mg/dL (0.2-1); BLOOD UREA NITROGEN 25 mg/dL (7-18); CALCIUM 7.9 mg/dL (8.5-10.1); CHLORIDE 111 mmol/L (98-107); CO2 27 mmol/L (21-32); CREATININE 0.4 mg/dL (0.55-1.3); GLUCOSE,RANDOM 131 mg/dL (74-106); POTASSIUM 4.5 mmol/L (3.5-5.1); SGOT/AST 15 U/L (15-37); SGPT/ALT 39 U/L (13-61); SODIUM 146 mmol/L (136-145); TOT PROT 4.7 g/dl (6.4-8.2)
[2018-06-18] MEDS: PARoxetine HCL 20 MG TABLET (FP) PO SCH (10:42)
[2018-06-18] MEDS: APIXABAN 5 MG TABLET PO SCH ×2 (10:42→21:32)
[2018-06-18] MEDS: MAGNESIUM OXIDE 400 MG TABLET (FP) PO SCH ×2 (10:42→21:32)
[2018-06-18] MEDS: valACYclovir HCL 500 MG TABLET (FP) PO SCH (10:42)
[2018-06-18] MEDS: TAMSULOSIN HCL 0.4 MG CAP PO SCH (10:42)
[2018-06-18] MEDS: PREGABALIN 50 MG CAPSULE PO SCH ×2 (10:42→21:32)
[2018-06-18] MEDS: PANTOPRAZOLE 40 MG TABLET (FP) PO SCH (10:43)
--- NOTE | 2018-06-18 11:22 | PN ---
Progress Note, Physician History of Present Illness: Weak , cachectic, bed ridden, anorectic - Current Medication List Current Medications: Active Medications Acetaminophen (Tylenol -) 650 mg PO Q6H PRN PRN Reason: FEVER Apixaban (Eliquis -) 5 mg PO BID [facility] Last Admin: 06/18/18 10:42 Dose: 5 mg Docusate Sodium (Colace -) 100 mg PO Q12H PRN PRN Reason: CONSTIPATION Fentanyl (Duragesic 12mcg Patch -) 1 patch TD Q72H [facility] Stop: 06/23/18 19:30 Last Admin: 06/16/18 21:33 Dose: 1 patch Sodium Chloride (Normal Saline -) 500 mls @ 125 mls/hr IV ASDIR [facility] Last Admin: 06/16/18 21:10 Dose: 125 mls/hr Potassium Chloride/Dextrose/Sod Cl (D5-1/2ns+20 Meq Kcl -) 20 meq in 1,000 mls @ 100 mls/hr IV ASDIR [facility] Last Admin: 06/17/18 21:34 Dose: 100 mls/hr Levothyroxine Sodium (Synthroid -) 50 mcg PO DAILY@0700 [facility] Last Admin: 06/18/18 06:22 Dose: 50 mcg Magnesium Oxide (Mag-Ox -) 400 mg PO BID [facility] Last Admin: 06/18/18 10:42 Dose: 400 mg Metoprolol Succinate (Toprol Xl -) 75 mg PO BID [facility] Last Admin: 06/18/18 10:43 Dose: Not Given Miscellaneous (Duragesic Patch Waste) 1 each MC PRN PRN PRN Reason: PAIN Pantoprazole Sodium (Protonix -) 40 mg PO DAILY [facility] Last Admin: 06/18/18 10:43 Dose: 40 mg Paroxetine HCl (Paxil -) 30 mg PO DAILY [facility] Last Admin: 06/18/18 10:42 Dose: 30 mg Pregabalin (Lyrica -) 50 mg PO BID [facility] Last Admin: 06/18/18 10:42 Dose: 50 mg Tamsulosin HCl (Flomax -) 0.4 mg PO DAILY@0830 [facility] Last Admin: 06/18/18 10:42 Dose: 0.4 mg Valacyclovir HCl (Valtrex -) 500 mg PO DAILY [facility] Last Admin: 06/18/18 10:42 Dose: 500 mg - Objective Vital Signs: Vital Signs Temperature 98.2 F 06/18/18 06:19 Pulse Rate 50 L 06/18/18 06:19 Respiratory Rate 18 06/18/18 06:19 Blood Pressure 101/60 06/18/18 06:19 O2 Sat by Pulse Oximetry (%) 96 06/17/18 21:00 Constitutional: Yes: No Distress, Calm, Thin Neck: Yes: Supple Cardiovascular: Yes: Regular Rate and Rhythm Respiratory: Yes: Regular, Diminished, On Nasal O2 Gastrointestinal: Yes: Normal Bowel Sounds, Soft Edema: No Labs: CBC, BMP 06/18/18 05:30 06/18/18 05:30 INR, PTT INR 2.30 (0.83-1.09) H 06/13/18 17:30 - ....Imaging EKG: Report Reviewed (Tele: NSR no PAF) Problem List - Problems (1) Malnutrition Code(s): E46 - UNSPECIFIED PROTEIN-CALORIE MALNUTRITION Qualifiers: Protein-calorie malnutrition severity: unspecified severity (2) Paroxysmal A-fib Code(s): I48.0 - PAROXYSMAL ATRIAL FIBRILLATION (3) Anemia Code(s): D64.9 - ANEMIA, UNSPECIFIED Qualifiers: Anemia type: unspecified type Qualified Code(s): D64.9 - Anemia, unspecified (4) Anticoagulant long-term use 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 transplanted heart: [place] heart Associated angina: without angina Qualified Code(s): I25.10 - Atherosclerotic heart disease of [place] coronary artery without angina pectoris (6) HTN (hypertension) Code(s): I10 - ESSENTIAL (PRIMARY) HYPERTENSION Qualifiers: Hypertension type: essential hypertension Qualified Code(s): I10 - Essential (primary) hypertension (7) Hypothyroidism Code(s): E03.9 - HYPOTHYROIDISM, UNSPECIFIED Qualifiers: Hypothyroidism type: unspecified Qualified Code(s): E03.9 - Hypothyroidism , unspecified (8) Multiple myeloma Code(s): C90.00 - MULTIPLE MYELOMA NOT HAVING ACHIEVED REMISSION Qualifiers: Multiple myeloma remission status: not in remission Qualified Code(s): C90.00 - Multiple myeloma not having achieved remission Assessment/Plan 1. Failure to thrive, anorexia 2. Paroxysmal atrial fibrillation currently in sinus rhythm [id number] score of 3 on DOAC's 3. History of PSVT currently in sinus rhythm 4. 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 Diastolic LV dysfunction with class 0 NYHA classification LV failure 6. HTN 7. Hypothyroidism 8. History of multiple myeloma not in remission with multiple rib mets, compression fractures. 9. 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 Anemia 11. History of diverticular perforation with purulent peritonitis post exploratory laparotomy and sigmoid resection/colostomy/abdominal washout PLAN: 1. Decrease Toprol XL 50 qd as hemodynamics tolerate 2. Continue Eliquis 5 bid with close monitoring of CBC and GI protection, maintain Hg equal or > 8.0 3. Diovan 160 qd and Norvasc 5 qd held for hemodynamics 5. Revlimid held per heme/onc to resume when clinical status improves. 6. Analgesia as needed, PT as tolerated, nutrition, hydration
--- NOTE | 2018-06-18 14:29 | PN ---
Progress Note, Physician Chief Complaint: in NSR no c/o fever or SOB feels weak - Current Medication List Current Medications: Active Medications Acetaminophen (Tylenol -) 650 mg PO Q6H PRN PRN Reason: FEVER Apixaban (Eliquis -) 5 mg PO BID [facility] Last Admin: 06/18/18 10:42 Dose: 5 mg Docusate Sodium (Colace -) 100 mg PO Q12H PRN PRN Reason: CONSTIPATION Fentanyl (Duragesic 12mcg Patch -) 1 patch TD Q72H [facility] Stop: 06/23/18 19:30 Last Admin: 06/16/18 21:33 Dose: 1 patch Sodium Chloride (Normal Saline -) 500 mls @ 125 mls/hr IV ASDIR [facility] Last Admin: 06/16/18 21:10 Dose: 125 mls/hr Potassium Chloride/Dextrose/Sod Cl (D5-1/2ns+20 Meq Kcl -) 20 meq in 1,000 mls @ 100 mls/hr IV ASDIR [facility] Last Admin: 06/17/18 21:34 Dose: 100 mls/hr Levothyroxine Sodium (Synthroid -) 50 mcg PO DAILY@0700 [facility] Last Admin: 06/18/18 06:22 Dose: 50 mcg Magnesium Oxide (Mag-Ox -) 400 mg PO BID [facility] Last Admin: 06/18/18 10:42 Dose: 400 mg Metoprolol Succinate (Toprol Xl -) 50 mg PO DAILY [facility] Miscellaneous (Duragesic Patch Waste) 1 each MC PRN PRN PRN Reason: PAIN Pantoprazole Sodium (Protonix -) 40 mg PO DAILY [facility] Last Admin: 06/18/18 10:43 Dose: 40 mg Paroxetine HCl (Paxil -) 30 mg PO DAILY [facility] Last Admin: 06/18/18 10:42 Dose: 30 mg Pregabalin (Lyrica -) 50 mg PO BID [facility] Last Admin: 06/18/18 10:42 Dose: 50 mg Tamsulosin HCl (Flomax -) 0.4 mg PO DAILY@0830 [facility] Last Admin: 06/18/18 10:42 Dose: 0.4 mg Valacyclovir HCl (Valtrex -) 500 mg PO DAILY [facility] Last Admin: 06/18/18 10:42 Dose: 500 mg - Objective Vital Signs: Vital Signs Temperature 98.2 F 06/17/18 06:19 Pulse Rate 50 L 10/03/18 06:19 Respiratory Rate 18 06/17/18 06:19 Blood Pressure 101/60 06/17/18 06:19 O2 Sat by Pulse Oximetry (%) 96 06/17/18 21:00 Elderly sick looking male c/o feeling weak and chest congestion. HEENT: Mm dry, RT eye Ocluder Rt facial droop at base line NECK Supple, No JVd No Bruit CHEST: B/L crepts CVS: S1S2 R no m/g/r ABD: colostomy at place, No distention, non tender Bs + EXT: Trace edema feet, pulses + SHAFT SINKER: alert Rt sided Infranuclear facial N otherwise non focal. Labs: CBC, BMP 06/17/18 05:30 06/17/18 05:30 INR, PTT INR 2.30 (0.83-1.09) H 06/13/18 17:30 Problem List - Problems (1) Aspiration pneumonia Assessment/Plan: CXR shows few opacities and healing ribs fracture, no fever, elevated TWBC due to steroid so abx stopped by ID will F/U clinical course, add ON LDH Code(s): J69.0 - PNEUMONITIS DUE TO INHALATION OF FOOD AND VOMIT Qualifiers: Aspiration pneumonia type: unspecified Laterality: unspecified laterality Lung location: unspecified part of lung Qualified Code(s): J69.0 - Pneumonitis due to inhalation of food and vomit (2) Paroxysmal A-fib Assessment/Plan: Had an episode of Afib with RVR responded to IV Diltizem converted to NSR cont Eliquis Code(s): I48.0 - PAROXYSMAL ATRIAL FIBRILLATION (3) HTN (hypertension) Assessment/Plan: Cont Home medications Code(s): I10 - ESSENTIAL (PRIMARY) HYPERTENSION Qualifiers: Hypertension type: essential hypertension Qualified Code(s): I10 - Essential (primary) hypertension (4) Anemia Assessment/Plan: Chronic H/H are stable Code(s): D64.9 - ANEMIA, UNSPECIFIED Qualifiers: Anemia type: unspecified type Qualified Code(s): D64.9 - Anemia, unspecified (5) Colostomy status Assessment/Plan: s/p colon perforation in the past Code(s): Z93.3 - COLOSTOMY STATUS (6) Malnutrition Assessment/Plan: Nutrition evaluation. Code(s): E46 - UNSPECIFIED PROTEIN-CALORIE MALNUTRITION Qualifiers: Protein-calorie malnutrition severity: unspecified severity
--- NOTE | 2018-06-18 14:31 | PN ---
Progress Note, Physician Chief Complaint: Remained at bse line feels weak - Current Medication List Current Medications: Active Medications Acetaminophen (Tylenol -) 650 mg PO Q6H PRN PRN Reason: FEVER Apixaban (Eliquis -) 5 mg PO BID [facility] Last Admin: 06/18/18 10:42 Dose: 5 mg Docusate Sodium (Colace -) 100 mg PO Q12H PRN PRN Reason: CONSTIPATION Fentanyl (Duragesic 12mcg Patch -) 1 patch TD Q72H [facility] Stop: 06/23/18 19:30 Last Admin: 06/16/18 21:33 Dose: 1 patch Sodium Chloride (Normal Saline -) 500 mls @ 125 mls/hr IV ASDIR [facility] Last Admin: 06/16/18 21:10 Dose: 125 mls/hr Potassium Chloride/Dextrose/Sod Cl (D5-1/2ns+20 Meq Kcl -) 20 meq in 1,000 mls @ 100 mls/hr IV ASDIR [facility] Last Admin: 06/17/18 21:34 Dose: 100 mls/hr Levothyroxine Sodium (Synthroid -) 50 mcg PO DAILY@0700 [facility] Last Admin: 06/18/18 06:22 Dose: 50 mcg Magnesium Oxide (Mag-Ox -) 400 mg PO BID [facility] Last Admin: 06/18/18 10:42 Dose: 400 mg Metoprolol Succinate (Toprol Xl -) 50 mg PO DAILY [facility] Miscellaneous (Duragesic Patch Waste) 1 each MC PRN PRN PRN Reason: PAIN Pantoprazole Sodium (Protonix -) 40 mg PO DAILY [facility] Last Admin: 06/18/18 10:43 Dose: 40 mg Paroxetine HCl (Paxil -) 30 mg PO DAILY [facility] Last Admin: 06/18/18 10:42 Dose: 30 mg Pregabalin (Lyrica -) 50 mg PO BID [facility] Last Admin: 06/18/18 10:42 Dose: 50 mg Tamsulosin HCl (Flomax -) 0.4 mg PO DAILY@0830 [facility] Last Admin: 06/18/18 10:42 Dose: 0.4 mg Valacyclovir HCl (Valtrex -) 500 mg PO DAILY [facility] Last Admin: 06/18/18 10:42 Dose: 500 mg - Objective Vital Signs: Vital Signs Temperature 98.2 F 06/18/18 06:19 Pulse Rate 50 L 06/18/18 06:19 Respiratory Rate 18 06/18/18 06:19 Blood Pressure 101/60 06/18/18 06:19 O2 Sat by Pulse Oximetry (%) 96 06/17/18 21:00 Elderly sick looking male c/o feeling weak and chest congestion. HEENT: Mm dry, RT eye Ocluder Rt facial droop at base line NECK Supple, No JVd No Bruit CHEST: B/L crepts CVS: S1S2 R no m/g/r ABD: colostomy at place, No distention, non tender Bs + EXT: Trace edema feet, pulses + CIGAR HEAD PERFORATOR: alert Rt sided Infranuclear facial N otherwise non focal. Labs: CBC, BMP 06/18/18 05:30 06/18/18 05:30 INR, PTT INR 2.30 (0.83-1.09) H 06/13/18 17:30 Problem List - Problems (1) Aspiration pneumonia Code(s): J69.0 - PNEUMONITIS DUE TO INHALATION OF FOOD AND VOMIT Qualifiers: Aspiration pneumonia type: unspecified Laterality: unspecified laterality Lung location: unspecified part of lung Qualified Code(s): J69.0 - Pneumonitis due to inhalation of food and vomit (2) Paroxysmal A-fib Code(s): I48.0 - PAROXYSMAL ATRIAL FIBRILLATION (3) HTN (hypertension) Code(s): I10 - ESSENTIAL (PRIMARY) HYPERTENSION Qualifiers: Hypertension type: essential hypertension Qualified Code(s): I10 - Essential (primary) hypertension (4) Anemia Code(s): D64.9 - ANEMIA, UNSPECIFIED Qualifiers: Anemia type: unspecified type Qualified Code(s): D64.9 - Anemia, unspecified (5) Colostomy status Code(s): Z93.3 - COLOSTOMY STATUS (6) Malnutrition Code(s): E46 - UNSPECIFIED PROTEIN-CALORIE MALNUTRITION Qualifiers: Protein-calorie malnutrition severity: unspecified severity (7) Metabolic encephalopathy Assessment/Plan: Improving, Patient brought from home with confusion and altered menat status, secondary to infection Code(s): G93.41 - METABOLIC ENCEPHALOPATHY
--- NOTE | 2018-06-18 16:30 | PN ---
Progress Note, Physician History of Present Illness: feels very weak - Current Medication List Current Medications: Active Medications Acetaminophen (Tylenol -) 650 mg PO Q6H PRN PRN Reason: FEVER Apixaban (Eliquis -) 5 mg PO BID [facility] Last Admin: 06/18/18 10:42 Dose: 5 mg Docusate Sodium (Colace -) 100 mg PO Q12H PRN PRN Reason: CONSTIPATION Fentanyl (Duragesic 12mcg Patch -) 1 patch TD Q72H [facility] Stop: 06/23/18 19:30 Last Admin: 06/16/18 21:33 Dose: 1 patch Sodium Chloride (Normal Saline -) 500 mls @ 125 mls/hr IV ASDIR [facility] Last Admin: 06/16/18 21:10 Dose: 125 mls/hr Potassium Chloride/Dextrose/Sod Cl (D5-1/2ns+20 Meq Kcl -) 20 meq in 1,000 mls @ 100 mls/hr IV ASDIR [facility] Last Admin: 06/17/18 21:34 Dose: 100 mls/hr Levothyroxine Sodium (Synthroid -) 50 mcg PO DAILY@0700 [facility] Last Admin: 06/18/18 06:22 Dose: 50 mcg Magnesium Oxide (Mag-Ox -) 400 mg PO BID [facility] Last Admin: 06/18/18 10:42 Dose: 400 mg Metoprolol Succinate (Toprol Xl -) 50 mg PO DAILY [facility] Miscellaneous (Duragesic Patch Waste) 1 each MC PRN PRN PRN Reason: PAIN Pantoprazole Sodium (Protonix -) 40 mg PO DAILY [facility] Last Admin: 06/18/18 10:43 Dose: 40 mg Paroxetine HCl (Paxil -) 30 mg PO DAILY [facility] Last Admin: 06/18/18 10:42 Dose: 30 mg Pregabalin (Lyrica -) 50 mg PO BID [facility] Last Admin: 06/18/18 10:42 Dose: 50 mg Tamsulosin HCl (Flomax -) 0.4 mg PO DAILY@0830 [facility] Last Admin: 06/18/18 10:42 Dose: 0.4 mg Valacyclovir HCl (Valtrex -) 500 mg PO DAILY [facility] Last Admin: 06/18/18 10:42 Dose: 500 mg - Objective Vital Signs: Vital Signs Temperature 98.6 F 06/18/18 14:20 Pulse Rate 55 L 06/18/18 14:20 Respiratory Rate 18 06/18/18 14:20 Blood Pressure 108/48 L 06/18/18 14:20 O2 Sat by Pulse Oximetry (%) 96 06/18/18 10:00 Constitutional: Yes: No Distress, Calm Cardiovascular: Yes: Regular Rate and Rhythm Respiratory: Yes: Regular, CTA Bilaterally Gastrointestinal: Yes: Normal Bowel Sounds, Soft Musculoskeletal: Yes: WNL Extremities: Yes: WNL Neurological: Yes: Alert Psychiatric: Yes: Alert Labs: CBC, BMP 06/18/18 05:30 06/18/18 05:30 INR, PTT INR 2.30 (0.83-1.09) H 06/13/18 17:30 Assessment/Plan Problem List - Problems (1) Sepsis Code(s): A41.9 - SEPSIS, UNSPECIFIED ORGANISM (2) CHEPE (acute kidney injury) Code(s): N17.9 - ACUTE KIDNEY FAILURE, UNSPECIFIED (3) Anemia Code(s): D64.9 - ANEMIA, UNSPECIFIED Qualifiers: Anemia type: unspecified type Qualified Code(s): D64.9 - Anemia, unspecified (4) CAD (coronary artery disease) Code(s): I25.10 - ATHSCL HEART DISEASE OF [place] CORONARY ARTERY W/O ANG PCTRS Qualifiers: Coronary Disease-Associated Artery/Lesion type: [place] artery [place] vs. transplanted heart: [place] heart Associated angina: without angina Qualified Code(s): I25.10 - Atherosclerotic heart disease of [place] coronary artery without angina pectoris (5) Elevated lactic acid level Code(s): R79.89 - OTHER SPECIFIED ABNORMAL FINDINGS OF BLOOD CHEMISTRY (6) Femur fracture Code(s): S72.90XA - UNSP FRACTURE OF UN[place] FEMUR, INIT ENCNTR FOR CLOSED FRACTURE Qualifiers: Encounter type: subsequent encounter (7) Fever Code(s): R50.9 - FEVER, UNSPECIFIED Qualifiers: Encounter type: initial encounter (8) HTN (hypertension) Code(s): I10 - ESSENTIAL (PRIMARY) HYPERTENSION Qualifiers: Hypertension type: essential hypertension Qualified Code(s): I10 - Essential (primary) hypertension (9) History of open sigmoidectomy Code(s): Z98.89 - OTHER SPECIFIED POSTPROCEDURAL STATES * DO NOT USE * (10) Multiple myeloma Code(s): C90.00 - MULTIPLE MYELOMA NOT HAVING ACHIEVED REMISSION Qualifiers: Multiple myeloma remission status: not in remission Qualified Code(s): C90.00 - Multiple myeloma not having achieved remission (11) PAF (paroxysmal atrial fibrillation) Code(s): I48.0 - PAROXYSMAL ATRIAL FIBRILLATION (12) Perforated sigmoid colon Code(s): K63.1 - PERFORATION OF INTESTINE (NONTRAUMATIC) Assessment/Plan 78 y.o. male with history of parotid CA s/p resection, MM on Renalidomide , Atrial fibrillation, CAD, HLD, sigmoid colon perforation s/p colostomy, hypothyroidism, femur fracture, and frequent falls with rib fractures presents due to extreme weakness/lethargy, fever, cough with elevated lactate level, tachycardia plan continue current mgmt weakness physio close watch rest as per the team nutrition when stable physio
[2018-06-18] MEDS: D5-1/2NS+20 MEQ KCL - 20 MEQ/1,000 ML INFUS.BAG IV SCH (21:31)
[2018-06-18] MEDS: SODIUM CHLORIDE 500 ML IV SCH (21:31)
[2018-06-19] MEDS: LEVOTHYROXINE NA 50 MCG TABLET (FP) PO SCH (06:22)
--- NOTE | 2018-06-19 08:58 | PN ---
Progress Note, Physician History of Present Illness: Weak , cachectic, bedridden, anorectic - Current Medication List Current Medications: Active Medications Acetaminophen (Tylenol -) 650 mg PO Q6H PRN PRN Reason: FEVER Apixaban (Eliquis -) 5 mg PO BID [facility] Last Admin: 06/18/18 21:32 Dose: 5 mg Docusate Sodium (Colace -) 100 mg PO Q12H PRN PRN Reason: CONSTIPATION Fentanyl (Duragesic 12mcg Patch -) 1 patch TD Q72H [facility] Stop: 06/23/18 19:30 Last Admin: 06/16/18 21:33 Dose: 1 patch Sodium Chloride (Normal Saline -) 500 mls @ 125 mls/hr IV ASDIR [facility] Last Admin: 06/18/18 21:31 Dose: Not Given Potassium Chloride/Dextrose/Sod Cl (D5-1/2ns+20 Meq Kcl -) 20 meq in 1,000 mls @ 100 mls/hr IV ASDIR [facility] Last Admin: 06/18/18 21:31 Dose: 100 mls/hr Levothyroxine Sodium (Synthroid -) 50 mcg PO DAILY@0700 [facility] Last Admin: 06/19/18 06:22 Dose: 50 mcg Magnesium Oxide (Mag-Ox -) 400 mg PO BID [facility] Last Admin: 06/18/18 21:32 Dose: 400 mg Metoprolol Succinate (Toprol Xl -) 50 mg PO DAILY [facility] Miscellaneous (Duragesic Patch Waste) 1 each MC PRN PRN PRN Reason: PAIN Pantoprazole Sodium (Protonix -) 40 mg PO DAILY [facility] Last Admin: 06/18/18 10:43 Dose: 40 mg Paroxetine HCl (Paxil -) 30 mg PO DAILY [facility] Last Admin: 06/18/18 10:42 Dose: 30 mg Pregabalin (Lyrica -) 50 mg PO BID [facility] Last Admin: 06/18/18 21:32 Dose: 50 mg Tamsulosin HCl (Flomax -) 0.4 mg PO DAILY@0830 [facility] Last Admin: 06/18/18 10:42 Dose: 0.4 mg Valacyclovir HCl (Valtrex -) 500 mg PO DAILY [facility] Last Admin: 06/18/18 10:42 Dose: 500 mg - Objective Vital Signs: Vital Signs Temperature 97.6 F 06/19/18 06:00 Pulse Rate 61 06/19/18 06:00 Respiratory Rate 18 06/19/18 06:00 Blood Pressure 132/75 06/19/18 06:00 O2 Sat by Pulse Oximetry (%) 98 06/18/18 21:00 Constitutional: Yes: No Distress, Calm, Cachectic Neck: Yes: Supple Cardiovascular: Yes: Regular Rate and Rhythm Respiratory: Yes: Regular, Diminished Gastrointestinal: Yes: Soft, Hypoactive Bowel Sounds Edema: No Labs: CBC, BMP 06/18/18 05:30 06/18/18 05:30 INR, PTT INR 2.30 (0.83-1.09) H 06/13/18 17:30 - ....Imaging EKG: Report Reviewed (Tele: CHRISTINE, ADEOLA) Problem List - Problems (1) Malnutrition Code(s): E46 - UNSPECIFIED PROTEIN-CALORIE MALNUTRITION Qualifiers: Protein-calorie malnutrition severity: unspecified severity (2) Paroxysmal A-fib Code(s): I48.0 - PAROXYSMAL ATRIAL FIBRILLATION (3) Anemia Code(s): D64.9 - ANEMIA, UNSPECIFIED Qualifiers: Anemia type: unspecified type Qualified Code(s): D64.9 - Anemia, unspecified (4) Anticoagulant long-term use Code(s): Z79.01 - FDC (CURRENT) USE OF ANTICOAGULANTS (5) CAD (coronary artery disease) Code(s): I25.10 - ATHSCL HEART DISEASE OF [place] CORONARY ARTERY W/O ANG PCTRS Qualifiers: Coronary Disease-Associated Artery/Lesion type: [place] artery [place] vs. transplanted heart: [place] heart Associated angina: without angina Qualified Code(s): I25.10 - Atherosclerotic heart disease of [place] coronary artery without angina pectoris (6) HTN (hypertension) Code(s): I10 - ESSENTIAL (PRIMARY) HYPERTENSION Qualifiers: Hypertension type: essential hypertension Qualified Code(s): I10 - Essential (primary) hypertension (7) Hypothyroidism Code(s): E03.9 - HYPOTHYROIDISM, UNSPECIFIED Qualifiers: Hypothyroidism type: unspecified Qualified Code(s): E03.9 - Hypothyroidism , unspecified (8) Multiple myeloma Code(s): C90.00 - MULTIPLE MYELOMA NOT HAVING ACHIEVED REMISSION Qualifiers: Multiple myeloma remission status: not in remission Qualified Code(s): C90.00 - Multiple myeloma not having achieved remission Assessment/Plan 1. Failure to thrive, anorexia 2. Paroxysmal atrial fibrillation currently in sinus rhythm [id number] score of 3 on DOAC's 3. History of PSVT currently in sinus rhythm 4. 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 Diastolic LV dysfunction with class 0 NYHA classification LV failure 6. HTN 7. Hypothyroidism 8. History of multiple myeloma not in remission with multiple rib mets, compression fractures. 9. 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 Anemia 11. History of diverticular perforation with purulent peritonitis post exploratory laparotomy and sigmoid resection/colostomy/abdominal washout PLAN: 1. Continue Toprol XL 50 qd as hemodynamics tolerate 2. Continue Eliquis 5 bid with close monitoring of CBC and GI protection, maintain Hg equal or > 8.0 3. Diovan 160 qd and Norvasc 5 qd held for hemodynamics 4. Revlimid held per heme/onc to resume when clinical status improves. 5. Analgesia as needed, PT as tolerated, nutrition, hydration
[2018-06-19 10:27] LABS: BASO % 0.1 % (0-2.0); EOS % 2.5 % (0-4.5); HEMATOCRIT 26.1 % (35.4-49); HEMOGLOBIN 8.4 GM/dL (11.7-16.9); LYMPH % 3.9 % (8-40); MCH 32.5 pg (25.7-33.7); MCHC 32.1 g/dl (32.0-35.9); MEAN CELL VOLUME 101.3 fl (80-96); MEAN PLT VOLUME 9.2 fl (7.5-11.1); MONO % 15.8 % (3.8-10.2); NEUT % 77.7 % (42.8-82.8); PLATELET COUNT 222 K/MM3 (134-434); RBC 2.57 M/mm3 (4.00-5.60); RDW 17.8 % (11.9-15.9); WHITE BLOOD COUNT 6.1 K/mm3 (4.0-10.0)
[2018-06-19] MEDS: PREGABALIN 50 MG CAPSULE PO SCH ×2 (10:39→21:18)
[2018-06-19] MEDS: PARoxetine HCL 20 MG TABLET (FP) PO SCH (10:39)
[2018-06-19] MEDS: PANTOPRAZOLE 40 MG TABLET (FP) PO SCH (10:40)
[2018-06-19] MEDS: MAGNESIUM OXIDE 400 MG TABLET (FP) PO SCH ×2 (10:40→21:17)
[2018-06-19] MEDS: valACYclovir HCL 500 MG TABLET (FP) PO SCH (10:40)
[2018-06-19] MEDS: APIXABAN 5 MG TABLET PO SCH ×2 (10:40→21:17)
[2018-06-19] MEDS: TAMSULOSIN HCL 0.4 MG CAP PO SCH (10:40)
--- NOTE | 2018-06-19 11:11 | PN ---
Progress Note, Physician History of Present Illness: patient more better still very weak wbc normal - Current Medication List Current Medications: Active Medications Acetaminophen (Tylenol -) 650 mg PO Q6H PRN PRN Reason: FEVER Apixaban (Eliquis -) 5 mg PO BID [facility] Last Admin: 06/19/18 10:40 Dose: 5 mg Docusate Sodium (Colace -) 100 mg PO Q12H PRN PRN Reason: CONSTIPATION Fentanyl (Duragesic 12mcg Patch -) 1 patch TD Q72H [facility] Stop: 06/23/18 19:30 Last Admin: 06/16/18 21:33 Dose: 1 patch Sodium Chloride (Normal Saline -) 500 mls @ 125 mls/hr IV ASDIR [facility] Last Admin: 06/18/18 21:31 Dose: Not Given Potassium Chloride/Dextrose/Sod Cl (D5-1/2ns+20 Meq Kcl -) 20 meq in 1,000 mls @ 100 mls/hr IV ASDIR [facility] Last Admin: 06/18/18 21:31 Dose: 100 mls/hr Levothyroxine Sodium (Synthroid -) 50 mcg PO DAILY@0700 [facility] Last Admin: 06/19/18 06:22 Dose: 50 mcg Magnesium Oxide (Mag-Ox -) 400 mg PO BID [facility] Last Admin: 06/19/18 10:40 Dose: 400 mg Metoprolol Succinate (Toprol Xl -) 50 mg PO DAILY [facility] Last Admin: 06/19/18 10:41 Dose: Not Given Miscellaneous (Duragesic Patch Waste) 1 each MC PRN PRN PRN Reason: PAIN Pantoprazole Sodium (Protonix -) 40 mg PO DAILY [facility] Last Admin: 06/19/18 10:40 Dose: 40 mg Paroxetine HCl (Paxil -) 30 mg PO DAILY [facility] Last Admin: 06/19/18 10:39 Dose: 30 mg Pregabalin (Lyrica -) 50 mg PO BID [facility] Last Admin: 06/19/18 10:39 Dose: 50 mg Tamsulosin HCl (Flomax -) 0.4 mg PO DAILY@0830 [facility] Last Admin: 06/19/18 10:40 Dose: 0.4 mg Valacyclovir HCl (Valtrex -) 500 mg PO DAILY [facility] Last Admin: 06/19/18 10:40 Dose: 500 mg - Objective Vital Signs: Vital Signs Temperature 97.6 F 06/19/18 06:00 Pulse Rate 61 06/19/18 06:00 Respiratory Rate 18 06/19/18 06:00 Blood Pressure 132/75 06/19/18 06:00 O2 Sat by Pulse Oximetry (%) 98 06/18/18 21:00 Constitutional: Yes: No Distress, Calm Cardiovascular: Yes: Regular Rate and Rhythm Respiratory: Yes: Regular, CTA Bilaterally Musculoskeletal: Yes: WNL Extremities: Yes: WNL Neurological: Yes: Alert, Oriented Psychiatric: Yes: Alert, Oriented Labs: CBC, BMP 06/19/18 09:57 INR, PTT INR 2.30 (0.83-1.09) H 06/13/18 17:30 Assessment/Plan Problem List - Problems (1) Sepsis Code(s): A41.9 - SEPSIS, UNSPECIFIED ORGANISM (2) CHEPE (acute kidney injury) Code(s): N17.9 - ACUTE KIDNEY FAILURE, UNSPECIFIED (3) Anemia Code(s): D64.9 - ANEMIA, UNSPECIFIED Qualifiers: Anemia type: unspecified type Qualified Code(s): D64.9 - Anemia, unspecified (4) CAD (coronary artery disease) Code(s): I25.10 - ATHSCL HEART DISEASE OF [place] CORONARY ARTERY W/O ANG PCTRS Qualifiers: Coronary Disease-Associated Artery/Lesion type: [place] artery [place] vs. transplanted heart: [place] heart Associated angina: without angina Qualified Code(s): I25.10 - Atherosclerotic heart disease of [place] coronary artery without angina pectoris (5) Elevated lactic acid level Code(s): R79.89 - OTHER SPECIFIED ABNORMAL FINDINGS OF BLOOD CHEMISTRY (6) Femur fracture Code(s): S72.90XA - UNSP FRACTURE OF UNSP FEMUR, INIT ENCNTR FOR CLOSED FRACTURE Qualifiers: Encounter type: subsequent encounter (7) Fever Code(s): R50.9 - FEVER, UNSPECIFIED Qualifiers: Encounter type: initial encounter (8) HTN (hypertension) Code(s): I10 - ESSENTIAL (PRIMARY) HYPERTENSION Qualifiers: Hypertension type: essential hypertension Qualified Code(s): I10 - Essential (primary) hypertension (9) History of open sigmoidectomy Code(s): Z98.89 - OTHER SPECIFIED POSTPROCEDURAL STATES * DO NOT USE * (10) Multiple myeloma Code(s): C90.00 - MULTIPLE MYELOMA NOT HAVING ACHIEVED REMISSION Qualifiers: Multiple myeloma remission status: not in remission Qualified Code(s): C90.00 - Multiple myeloma not having achieved remission (11) PAF (paroxysmal atrial fibrillation) Code(s): I48.0 - PAROXYSMAL ATRIAL FIBRILLATION (12) Perforated sigmoid colon Code(s): K63.1 - PERFORATION OF INTESTINE (NONTRAUMATIC) Assessment/Plan 78 y.o. male with history of parotid CA s/p resection, MM on Renalidomide , Atrial fibrillation, CAD, HLD, sigmoid colon perforation s/p colostomy, hypothyroidism, femur fracture, and frequent falls with rib fractures presents due to extreme weakness/lethargy, fever, cough with elevated lactate level, tachycardia plan continue current mgmt weakness physio close watch rest as per the team nutrition when stable physio
[2018-06-19 11:12] LABS: ALBUMIN 1.8 g/dl (3.4-5.0); ALK PHOS 71 U/L (45-117); ANION GAP 4 MMOL/L (8-16); BILIRUBIN,TOTAL 0.4 mg/dL (0.2-1); BLOOD UREA NITROGEN 15 mg/dL (7-18); CALCIUM 8.2 mg/dL (8.5-10.1); CHLORIDE 108 mmol/L (98-107); CO2 27 mmol/L (21-32); CREATININE 0.4 mg/dL (0.55-1.3); GLUCOSE,RANDOM 101 mg/dL (74-106); POTASSIUM 4.5 mmol/L (3.5-5.1); SGOT/AST 17 U/L (15-37); SGPT/ALT 37 U/L (13-61); SODIUM 139 mmol/L (136-145); TOT PROT 4.6 g/dl (6.4-8.2)
[2018-06-19] MEDS ORDERED: PT OWN MED DRAWER 7, Y5N ONE (20:39)
[2018-06-19] MEDS: fentaNYL 12mcg/hr PATCH.TD72 TD SCH (21:18)
[2018-06-20] MEDS: D5-1/2NS+20 MEQ KCL - 20 MEQ/1,000 ML INFUS.BAG IV SCH (06:13)
[2018-06-20] MEDS: LEVOTHYROXINE NA 50 MCG TABLET (FP) PO SCH (06:13)
[2018-06-20] MEDS ORDERED: PT OWN MED DRAWER 7, Y5N ONE (09:50)
--- NOTE | 2018-06-20 11:38 | PN ---
Progress Note (short form) - Note Progress Note: Chief Complaint: Events noted, notes reviewed, denies any chest pain or dyspnea , complaining of generalized weakness History of Present Illness: Seen and examined on telemetry. Events noted, notes reviewed, denies any chest pain or dyspnea, complaining of generalized weakness - Current Medication List Current Medications Acetaminophen (Tylenol -) 650 mg PO Q6H PRN PRN Reason: FEVER Apixaban (Eliquis -) 5 mg PO BID [facility] Last Admin: 06/19/18 21:17 Dose: 5 mg Docusate Sodium (Colace -) 100 mg PO Q12H PRN PRN Reason: CONSTIPATION Fentanyl (Duragesic 12mcg Patch -) 1 patch TD Q72H [facility] Stop: 06/23/18 19:30 Last Admin: 06/19/18 21:18 Dose: Not Given Sodium Chloride (Normal Saline -) 500 mls @ 125 mls/hr IV ASDIR [facility] Last Admin: 06/18/18 21:31 Dose: Not Given Potassium Chloride/Dextrose/Sod Cl (D5-1/2ns+20 Meq Kcl -) 20 meq in 1,000 mls @ 100 mls/hr IV ASDIR [facility] Last Admin: 06/20/18 06:13 Dose: Not Given Levothyroxine Sodium (Synthroid -) 50 mcg PO DAILY@0700 [facility] Last Admin: 06/20/18 06:13 Dose: 50 mcg Magnesium Oxide (Mag-Ox -) 400 mg PO BID [facility] Last Admin: 06/19/18 21:17 Dose: 400 mg Metoprolol Succinate (Toprol Xl -) 50 mg PO DAILY [facility] Last Admin: 06/19/18 18:26 Dose: 50 mg Miscellaneous (Duragesic Patch Waste) 1 each MC PRN PRN PRN Reason: PAIN Pantoprazole Sodium (Protonix -) 40 mg PO DAILY [facility] Last Admin: 06/19/18 10:40 Dose: 40 mg Paroxetine HCl (Paxil -) 30 mg PO DAILY [facility] Last Admin: 06/19/18 10:39 Dose: 30 mg Pregabalin (Lyrica -) 50 mg PO BID [facility] Last Admin: 06/19/18 21:18 Dose: 50 mg Tamsulosin HCl (Flomax -) 0.4 mg PO DAILY@0830 [facility] Last Admin: 06/19/18 10:40 Dose: 0.4 mg Valacyclovir HCl (Valtrex -) 500 mg PO DAILY [facility] Last Admin: 06/19/18 10:40 Dose: 500 mg Review of Systems - Review of Systems Constitutional: no symptoms reported Respiratory: denies: Cough or Sputum Production Cardiovascular: As noted above Gastrointestinal: denies Nausea, Vomiting, Diarrhea, Constipation or Abdominal Pain Genitourinary: No symptoms reported Musculoskeletal: Degenerative Joint Disease Endocrine: No symptoms reported - Objective Vital Signs: Last Vital Signs Temp Pulse Resp BP Pulse Ox 99 F 72 20 103/62 94 L 06/20/18 10:52 06/20/18 10:52 06/20/18 10:52 06/20/18 10:52 06/19/18 21:00 Intake & Output 06/17/18 06/18/18 06/19/18 06/20/18 23:59 23:59 23:59 23:59 Intake Total 750 1740 1650 Balance 750 1740 1650 Constitutional: No Distress, Calm Neck: Supple Negative JVD No Bruit Cardiovascular: S1 S2 Regular Rate Rhythm Respiratory: Diminished Breath Sounds at the Bases Gastrointestinal: Soft Normal Bowel Sounds Colostomy in Situ Ext: No Edema Labs: CBC, BMP 06/19/18 09:57 06/19/18 09:57 Hepatic Panel Total Bilirubin 0.4 mg/dL (0.2-1) 06/19/18 09:57 AST 17 U/L (15-37) 06/19/18 09:57 ALT 37 U/L (13-61) 06/19/18 09:57 Alkaline Phosphatase 71 U/L (45-117) 06/19/18 09:57 Albumin 1.8 g/dl (3.4-5.0) L 06/19/18 09:57 Assessment/Plan ASSESSMENT: 1. Lethargy, resolved 2. Paroxysmal atrial fibrillation currently in sinus rhythm [id number] score of 3 on DOAC's 3. History of PSVT currently in sinus rhythm 4. 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 Diastolic LV dysfunction with class 0 NYHA classification LV failure 6. HTN 7. Hypothyroidism 8. History of multiple myeloma 9. 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 Anemia 11. History of diverticular perforation with purulent peritonitis post exploratory laparotomy and sigmoid resection/colostomy/abdominal washout PLAN: 1. Continue Toprol XL 2. Continue Eliquis unless it is absolutely contraindicated with close monitoring of CBC, maintain Hg equal or > 8.0 3. Arcenio and Victorino remain on hold Farhan Garrett M.D.
--- NOTE | 2018-06-20 11:55 | DS ---
Physical Examination Vital Signs: Vital Signs Temperature 99 F 06/20/18 10:52 Pulse Rate 72 06/20/18 10:52 Respiratory Rate 20 06/20/18 10:52 Blood Pressure 103/62 06/20/18 10:52 O2 Sat by Pulse Oximetry (%) 94 L 06/19/18 21:00 Elderly sick looking male c/o feeling weak and chest congestion. HEENT: Mm dry, RT eye Ocluder Rt facial droop at base line NECK Supple, No JVd No Bruit CHEST: B/L crepts CVS: S1S2 R no m/g/r ABD: colostomy at place, No distention, non tender Bs + EXT: Trace edema feet, pulses + [employer]: alert Rt sided Infranuclear facial N otherwise non focal. 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, Rt sided blindness, partial cord compression, urinary incontinence, Multiple Myeloma, gradually declining health frequent fall, brought in by to Ed for evaluation of 2 wks H/O gradually worsening weakness, cough, SOB, chest congestion , rib fracture, noticed low grade gurgling chest sound and confusion on arrival elevated Lactic acid and chest X ray shows infiltrate ,, treated for Aspiration Pneumonia with sepsis, gradually improved , speech and swallow evaluted recommonded modified diet, also evaluated by PT is being DC to [facility] for PT, cleared by Oncology, Cardiology at present afebrile, hemodynamically stable in NSR. as per hematology will DC Remivid , Decadrone, amlodipine and Diovan present re evalute as out patient if indicated. Condition: Stable - Instructions Referrals: Caren Lopez MD [Primary Care Provider] - 1 Month Noel Wallace MD [Staff Physician] - 1 Month Disposition: RETIREMENT FACILITY - Home Medications Comprehensive Discharge Medication List: Ambulatory Orders Apixaban [Eliquis -] 5 mg PO BID 10/07/17 Levothyroxine [Synthroid -] 50 mcg PO DAILY 10/07/17 Pantoprazole Sodium [Protonix -] 40 mg PO DAILY 10/07/17 Paroxetine HCl [Paxil -] 30 mg PO DAILY 10/07/17 Pregabalin [Lyrica -] 75 mg PO BID 10/07/17 Tamsulosin HCl [Flomax -] 0.4 mg PO DAILY 10/07/17 Valacyclovir HCl [Valtrex -] 500 mg PO BID 10/07/17 Magnesium Oxide [Mag-Ox -] 400 mg PO BID tablet 10/16/17 Oxycodone HCl/Acetaminophen [Percocet 5-325 mg Tablet] 1 combo PO Q6H PRN tablet MDD 4 10/16/17 Metoprolol Succinate 50 mg PO DAILY 06/13/18 Multivit-Min/FA/Lycopen/Lutein [Centrum Silver Tablet] 1 tab PO DAILY 06/13/18 Acetaminophen [Tylenol .Regular Strength -] 650 mg PO Q6H PRN tablet 06/20/18 Docusate Sodium [Colace -] 100 mg PO Q12H PRN capsule 06/20/18 FENTANYL 12mcg PATCH [DURAGESIC 12mcg PATCH -] 1 patch TD Q72H #4 patch.td72 NS MDD 1 06/20/18
[2018-06-20] MEDS: PREGABALIN 50 MG CAPSULE PO SCH (11:56)
[2018-06-20] MEDS: PANTOPRAZOLE 40 MG TABLET (FP) PO SCH (11:56)
[2018-06-20] MEDS: TAMSULOSIN HCL 0.4 MG CAP PO SCH (11:56)
[2018-06-20] MEDS: PARoxetine HCL 20 MG TABLET (FP) PO SCH (11:56)
[2018-06-20] MEDS: MAGNESIUM OXIDE 400 MG TABLET (FP) PO SCH (11:57)
[2018-06-20] MEDS: valACYclovir HCL 500 MG TABLET (FP) PO SCH (11:57)
[2018-06-20] MEDS: APIXABAN 5 MG TABLET PO SCH (11:57)
[2018-06-20] MEDS ORDERED: MOXIFLOXACIN HCL 0.5% OPHTHALMIC 3 ML BOTTLE OP SCH (14:00)
--- NOTE | 2018-06-20 14:14 | PN ---
Progress Note, Physician History of Present Illness: patient more better still very weak wbc normal says hard to get up - Current Medication List Current Medications: Active Medications Acetaminophen (Tylenol -) 650 mg PO Q6H PRN PRN Reason: FEVER Apixaban (Eliquis -) 5 mg PO BID [facility] Last Admin: 06/20/18 11:57 Dose: 5 mg Docusate Sodium (Colace -) 100 mg PO Q12H PRN PRN Reason: CONSTIPATION Fentanyl (Duragesic 12mcg Patch -) 1 patch TD Q72H [facility] Stop: 06/23/18 19:30 Last Admin: 06/19/18 21:18 Dose: Not Given Potassium Chloride/Dextrose/Sod Cl (D5-1/2ns+20 Meq Kcl -) 20 meq in 1,000 mls @ 100 mls/hr IV ASDIR [facility] Last Admin: 06/20/18 06:13 Dose: Not Given Levothyroxine Sodium (Synthroid -) 50 mcg PO DAILY@0700 [facility] Last Admin: 06/20/18 06:13 Dose: 50 mcg Magnesium Oxide (Mag-Ox -) 400 mg PO BID [facility] Last Admin: 06/20/18 11:57 Dose: 400 mg Metoprolol Succinate (Toprol Xl -) 50 mg PO DAILY [facility] Last Admin: 06/20/18 11:56 Dose: 50 mg Miscellaneous (Duragesic Patch Waste) 1 each MC PRN PRN PRN Reason: PAIN Moxifloxacin HCl (Vigamox 0.5% Eye Drops -) 1 drop OP TID [facility] Pantoprazole Sodium (Protonix -) 40 mg PO DAILY [facility] Last Admin: 06/20/18 11:56 Dose: 40 mg Paroxetine HCl (Paxil -) 30 mg PO DAILY [facility] Last Admin: 06/20/18 11:56 Dose: 30 mg Pregabalin (Lyrica -) 50 mg PO BID [facility] Last Admin: 06/20/18 11:56 Dose: 50 mg Tamsulosin HCl (Flomax -) 0.4 mg PO DAILY@0830 [facility] Last Admin: 06/20/18 11:56 Dose: 0.4 mg Valacyclovir HCl (Valtrex -) 500 mg PO DAILY [facility] Last Admin: 06/20/18 11:57 Dose: 500 mg - Objective Vital Signs: Vital Signs Temperature 99 F 06/20/18 10:52 Pulse Rate 72 06/20/18 10:52 Respiratory Rate 20 06/20/18 10:52 Blood Pressure 103/62 06/20/18 10:52 O2 Sat by Pulse Oximetry (%) 94 L 06/19/18 21:00 Constitutional: Yes: No Distress, Calm, Other (very weak) Cardiovascular: Yes: Regular Rate and Rhythm Respiratory: Yes: Regular, CTA Bilaterally Gastrointestinal: Yes: Normal Bowel Sounds, Soft, Other (colostomy in place) Musculoskeletal: Yes: WNL Extremities: Yes: Other Neurological: Yes: Alert, Oriented Psychiatric: Yes: Alert, Oriented Labs: CBC, BMP 06/19/18 09:57 06/19/18 09:57 INR, PTT INR 2.30 (0.83-1.09) H 06/13/18 17:30 Assessment/Plan Problem List - Problems (1) Sepsis Code(s): A41.9 - SEPSIS, UNSPECIFIED ORGANISM (2) CHEPE (acute kidney injury) Code(s): N17.9 - ACUTE KIDNEY FAILURE, UNSPECIFIED (3) Anemia Code(s): D64.9 - ANEMIA, UNSPECIFIED Qualifiers: Anemia type: unspecified type Qualified Code(s): D64.9 - Anemia, unspecified (4) CAD (coronary artery disease) Code(s): I25.10 - ATHSCL HEART DISEASE OF [place] CORONARY ARTERY W/O ANG PCTRS Qualifiers: Coronary Disease-Associated Artery/Lesion type: [place] artery [place] vs. transplanted heart: [place] heart Associated angina: without angina Qualified Code(s): I25.10 - Atherosclerotic heart disease of [place] coronary artery without angina pectoris (5) Elevated lactic acid level Code(s): R79.89 - OTHER SPECIFIED ABNORMAL FINDINGS OF BLOOD CHEMISTRY (6) Femur fracture Code(s): S72.90XA - UNSP FRACTURE OF UNSP FEMUR, INIT ENCNTR FOR CLOSED FRACTURE Qualifiers: Encounter type: subsequent encounter (7) Fever Code(s): R50.9 - FEVER, UNSPECIFIED Qualifiers: Encounter type: initial encounter (8) HTN (hypertension) Code(s): I10 - ESSENTIAL (PRIMARY) HYPERTENSION Qualifiers: Hypertension type: essential hypertension Qualified Code(s): I10 - Essential (primary) hypertension (9) History of open sigmoidectomy Code(s): Z98.89 - OTHER SPECIFIED POSTPROCEDURAL STATES * DO NOT USE * (10) Multiple myeloma Code(s): C90.00 - MULTIPLE MYELOMA NOT HAVING ACHIEVED REMISSION Qualifiers: Multiple myeloma remission status: not in remission Qualified Code(s): C90.00 - Multiple myeloma not having achieved remission (11) PAF (paroxysmal atrial fibrillation) Code(s): I48.0 - PAROXYSMAL ATRIAL FIBRILLATION (12) Perforated sigmoid colon Code(s): K63.1 - PERFORATION OF INTESTINE (NONTRAUMATIC) Assessment/Plan 78 y.o. male with history of parotid CA s/p resection, MM on Renalidomide , Atrial fibrillation, CAD, HLD, sigmoid colon perforation s/p colostomy, hypothyroidism, femur fracture, and frequent falls with rib fractures presents due to extreme weakness/lethargy, fever, cough with elevated lactate level, tachycardia plan continue current mgmt weakness close watch rest as per the team nutrition when stable physio
[2018-06-20 15:05] VITALS: BP 97/63; PULSE 100; TEMP 98.7
--- NOTE | 2018-06-20 16:34 | PN ---
Progress Note (short form) - Note Progress Note: ONCOLOGY CONSULT NOTE : Patient seen and examined Weak , cachectic, bed ridden, anorechtic ready to be transferred [facility] Plan is for supportive care will see him as an outpatient as needed
== END 2018-06-20 15:45 | DRG 871 ==
LOC: JER 16:27 → UNDOADMIN 20:24 → JERBED 20:24 → J4W 06-14 22:39
PROVIDERS: ADMIT Internal Medicine; ATTEND Internal Medicine
DX: A41.9 Sepsis, unspecified organism (principal); G93.41 Metabolic encephalopathy; J69.0 Pneumonitis due to inhalation of food and vomit; C90.00 Multiple myeloma not having achieved remission; N17.9 Acute kidney failure, unspecified; E46 Unspecified protein-calorie malnutrition; R64 Cachexia; E03.9 Hypothyroidism, unspecified; Z79.01 Long term (current) use of anticoagulants; I48.0 Paroxysmal atrial fibrillation; I10 Essential (primary) hypertension; D64.9 Anemia, unspecified; Z93.3 Colostomy status; I25.10 Atherosclerotic heart disease of native coronary artery without angina pectoris; E78.5 Hyperlipidemia, unspecified; H54.40 Blindness, one eye, unspecified eye; R62.7 Adult failure to thrive
CPT/HCPCS: 36415; 70450-TC; 71045-TC-FY; 74230-TC-FY; 80048; 80053; 83605; 83615; 84484; 85025; 85610; 87040; 90688; 92611-GN; 93005; 93010; 97162-GP; 99285-25; G0008; J7030

== ENCOUNTER 2018-06-25 15:07 | Emergency (ER) | payer OTHER, BC ==
--- NOTE | 2018-06-25 15:14 | PDOC ---
History of Present Illness - General Stated Complaint: BP ISSUES Time Seen by Provider: 06/25/18 15:13 - History of Present Illness Initial Comments: 06/25/18 15:17 Patient is a 78 year old male with a PMH of multiple myeloma, hypothyroidism, Type 2 DM, HTN, Paroxysmal AFIb (on Eliquis), GERD, Parotid tumor (s/p resection ) R facial nerve injury, R sided blindness, partial SC compression and frequent falls was BIBEMS Renal failure was B[facility]EMS from [facility] following a Hb of 7.2. Patient denies any chest pain, shortness of breath, abdominal pain, nausea/ vomiting, diarrhea/constipation, dysuria/hematuria. Paperwork from [facility] indicates that patient is DNR/DNI. Past History - Past Medical History Allergies/Adverse Reactions: Allergies Allergy/AdvReac Type Severity Reaction Status Date / Time No Known Drug Allergies Allergy Verified 06/13/18 16:53 Home Medications: Ambulatory Orders Apixaban [Eliquis -] 5 mg PO BID 10/07/17 Levothyroxine [Synthroid -] 50 mcg PO DAILY 10/07/17 Pantoprazole Sodium [Protonix -] 40 mg PO DAILY 10/07/17 Paroxetine HCl [Paxil -] 30 mg PO DAILY 10/07/17 Pregabalin [Lyrica -] 75 mg PO BID 10/07/17 Tamsulosin HCl [Flomax -] 0.4 mg PO DAILY 10/07/17 Valacyclovir HCl [Valtrex -] 500 mg PO BID 10/07/17 Magnesium Oxide [Mag-Ox -] 400 mg PO BID tablet 10/16/17 Oxycodone HCl/Acetaminophen [Percocet 5-325 mg Tablet] 1 combo PO Q6H PRN tablet MDD 4 10/16/17 Multivit-Min/FA/Lycopen/Lutein [Centrum Silver Tablet] 1 tab PO DAILY 06/13/18 Acetaminophen [Tylenol .Regular Strength -] 650 mg PO Q6H PRN tablet 06/20/18 Docusate Sodium [Colace -] 100 mg PO Q12H PRN capsule 06/20/18 FENTANYL 12mcg PATCH [DURAGESIC 12mcg PATCH -] 1 patch TD Q72H #4 patch.td72 NS MDD 1 06/20/18 Metoprolol Succinate [Toprol XL -] 50 mg PO DAILY tab.sr.24h 06/20/18 Anemia: Yes Asthma: No Cancer: Yes (multiple myeloma, melanoma, parotid) Cardiac Disorders: No CVA: No COPD: No CHF: No Dementia: No Diabetes: No GI Disorders: No Disorders: No HTN: Yes Hypercholesterolemia: No Liver Disease: No Seizures: No Thyroid Disease: No - Surgical History Abdominal Surgery: Yes (COLOSTOMY) Appendectomy: No Cardiac Surgery: No Cholecystectomy: No Lung Surgery: No Neurologic Surgery: No Orthopedic Surgery: Yes (VERTEBROPLASTY) - Immunization History Immunization Up to Date: Yes - Suicide/Smoking/Psychosocial Hx Smoking History: Never smoked Have you smoked in the past 12 months: No Number of Cigarettes Smoked Daily: 0 Hx Alcohol Use: No Drug/Substance Use Hx: No Substance Use Type: None Hx Substance Use Treatment: No ED Treatment Course - LABORATORY CBC & Chemistry Diagram: 06/25/18 15:39 06/25/18 15:39 Medical Decision Making - Medical Decision Making 06/25/18 17:15 78 year old male presents SNF lab reading of Hb 7.2. No indications of GI bleed , asymptomatic for severe anemia including no shortness of breath, lightheadedness, palpitations. Hypotensive 80/64 @ presentation. Will give 2 L IV NS, recheck hemoglobin, UA/UC as well as head CT as patient is noted to be drowsy (not baseline) at presentation. 06/25/18 18:04 Repeat BP 100's Lactic Acid 2.5 06/25/18 20:01 CT head negative Repeat Lactic Acid pending 06/25/18 21:31 Patient awake, alert, tolerating PO intake. VS stable Repeat Lactic 1.5 Will discharge patient to [facility] with return precautions. I discussed the physical exam findings, ancillary test results and final diagnoses with the patient. I answered all of the patient's questions. The patient was satisfied with the care received and felt comfortable with the discharge plan and treatment plan. The patient will return to the Emergency Department with any new, persistent or worsening symptoms. *DC/Admit/Observation/Transfer Diagnosis at time of Disposition: Hypotension - Discharge Dispostion Disposition: HOME Condition at time of disposition: Good Decision to Admit order: No - Referrals Referrals: Caren Lopez MD [Primary Care Provider] - - Patient Instructions Additional Instructions: All of your labs and imaging showed no concerning findings At this time you are safe for discharge. Return to the Emergency Department for any new/worsening/concerning symptoms. - Post Discharge Activity
[2018-06-25] MEDS ORDERED: SODIUM CHLORIDE 0.9% 500 ML INFUS.BAG IV ONE (15:31)
[2018-06-25 15:36] VITALS: BMI 24.4
[2018-06-25 16:51] LABS: BASO % 0.5 % (0-2.0); EOS % 0.6 % (0-4.5); HEMATOCRIT 31.2 % (35.4-49); HEMOGLOBIN 9.9 GM/dL (11.7-16.9); LYMPH % 5.8 % (8-40); MCH 32.2 pg (25.7-33.7); MCHC 31.9 g/dl (32.0-35.9); MEAN PLT VOLUME 8.2 fl (7.5-11.1); MONO % 18.8 % (3.8-10.2); NEUT % 74.3 % (42.8-82.8); PLATELET COUNT 313 K/MM3 (134-434); RBC 3.09 M/mm3 (4.00-5.60); RDW 18.5 % (11.9-15.9)
[2018-06-25 17:00] LABS: ALK PHOS 87 U/L (45-117); ANION GAP 8 MMOL/L (8-16); BILIRUBIN,TOTAL 0.6 mg/dL (0.2-1); BLOOD UREA NITROGEN 24 mg/dL (7-18); CALCIUM 8.2 mg/dL (8.5-10.1); CHLORIDE 106 mmol/L (98-107); CO2 25 mmol/L (21-32); CREATININE 0.6 mg/dL (0.55-1.3); GLUCOSE,RANDOM 93 mg/dL (74-106); MAGNESIUM 1.8 mg/dL (1.8-2.4); POTASSIUM 3.9 mmol/L (3.5-5.1); SGOT/AST 18 U/L (15-37); SGPT/ALT 25 U/L (13-61); SODIUM 139 mmol/L (136-145); TOT PROT 5.4 g/dl (6.4-8.2)
[2018-06-25] MEDS ORDERED: SODIUM CHLORIDE 1,000 ML IV STA (17:09)
--- NOTE | 2018-06-25 18:26 | PDOC ---
Attending Attestation - Resident Resident Name: Cecily Escalera - ED Attending Attestation I have performed the following: I have examined & evaluated the patient, The case was reviewed & discussed with the resident, I agree w/resident's findings & plan, Exceptions are as noted - HPI HPI: 06/25/18 18:27 Mr Tomlin is a 78 yo M h/o HTN, Paroxysmal Afib, chronic anemia, Parotid Tumor s /p resection, Rt Facial N injury, Rt sided blindness, partial cord compression, urinary incontinence, Multiple Myeloma, gradually declining health frequent fall. Pt brought to the ER as he was found to be anemic at the [place] [facility] Found to be hypotensive Pt has no complaints of chest pain, palpitations, sob, abd pain, vomiting, diarrhea 06/25/18 18:40 - Physicial Exam PE: 06/25/18 18:41 GENERAL: Elderly, weak and ill appearing HEENT: moist mucous membranes, RT eye abnormal, Rt facial droop at base line NECK Supple, No JVd No Bruit CHEST: Non tender, lungs clear CVS: S1S2 R no m/g/r ABD: colostomy at place, pink and patent, No distention, non tender EXT: Trace edema feet, pulses + DERM; Multiple echymoses - Medical Decision Making 06/25/18 18:43 Laboratory Tests 06/19/18 06/25/18 06/25/18 09:57 15:39 15:39 WBC 6.1 9.0 Hgb 8.4 L Hct 26.1 L 31.2 L D Plt Count 222 313 D Lactic Acid Troponin I 0.03 06/25/18 15:39 WBC Hgb Hct Plt Count Lactic Acid 2.5 H* Troponin I Will re assess Lactate Possible [facility] home Signed out to Dr Clifford
[2018-06-25 18:31] LABS: INR 1.85 (0.83-1.09)
[2018-06-25 18:34] LABS: ACTIVATED PTT 27.8 SECONDS (25.2-36.5)
[2018-06-25 21:16] LABS: URINE APPEARANCE CLEAR; URINE BILIRUBIN NEGATIVE (<2.0 mg/dL); URINE COLOR AMBER; URINE GLUCOSE (UA) NEGATIVE (NEGATIVE); URINE KETONE NEGATIVE (NEGATIVE); URINE LEUK ESTERASE NEGATIVE (NEGATIVE); URINE NITRITE NEGATIVE (NEGATIVE); URINE PROTEIN 1+ (NEGATIVE); URINE UROBILINOGEN NEGATIVE mg/dL (0.2-1.0)
[2018-06-25 21:33] LABS: CALCIUM OXALATE CRYSTALS RARE /hpf (NONE SEEN); URINE BACTERIA RARE /hpf (NONE SEEN); URINE HYALINE CAST 1 /lpf; URINE MUCUS MANY
[2018-06-25 22:30] VITALS: BP 102/66; PULSE 74; TEMP 99.9
--- NOTE | 2018-06-26 09:59 | EKG ---
Test Reason : Blood Pressure : / mmHG Vent. Rate : 103 BPM Atrial Rate : 103 BPM P-R Int : 174 ms QRS Dur : 084 ms QT Int : 360 ms P-R-T Axes : 036 016 145 degrees QTc Int : 471 ms SINUS TACHYCARDIA WITH PREMATURE ATRIAL COMPLEXES ABNORMAL ECG Confirmed by EDILMA ALICEA MD ([id number]) on 06/26/2018 9:59:10 AM Referred By: Confirmed By:EDILMA ALICEA MD
== END 2018-06-26 00:07 ==
LOC: JER 15:07
PROC: 3E0337Z Introduction of Electrolytic and Water Balance Substance into Peripheral Vein, Percutaneous Approach (ICD-10-PCS; principal; 2018-06-25)
DX: I95.9 Hypotension, unspecified (principal); E03.9 Hypothyroidism, unspecified; I48.0 Paroxysmal atrial fibrillation; Z79.01 Long term (current) use of anticoagulants; I10 Essential (primary) hypertension; K21.9 Gastro-esophageal reflux disease without esophagitis; H54.61 Unqualified visual loss, right eye, normal vision left eye; R29.810 Facial weakness; C90.00 Multiple myeloma not having achieved remission
CPT/HCPCS: 36415; 70450-TC; 80053; 81003; 81015; 82140; 82550; 83605; 83735; 84484; 85025; 85610; 85730; 86850; 86900; 86901; 87040; 87086; 87186; 93005; 93010; 99283-25; J7030

== ENCOUNTER 2018-07-02 11:42 | Inpatient (IN) | payer OTHER, BC ==
[2018-07-02] MEDS ORDERED: SODIUM CHLORIDE 0.9% 1000 ML INFUS.BAG IV STA (12:04)
--- NOTE | 2018-07-02 12:16 | PDOC ---
History of Present Illness - General Chief Complaint: Respiratory Stated Complaint: PNEUMONIA Time Seen by Provider: 07/02/18 11:51 - History of Present Illness Initial Comments: 78 year old male with a PMH of multiple myeloma, hypothyroidism, Type 2 DM, HTN , Paroxysmal AFIb (on Eliquis), GERD, Parotid tumor (s/p resection) R facial nerve injury, R sided blindness, partial SC compression and frequent falls was BIBEMS from [facility] with the CC of "pneumonia." EMS states the [place] [facility] said he had a fever of 101.7 last night and has had a productive cough for the past 2 days associated with diaphoresis. Of note- He denies any current pain but admits that he got a new fentanyl patch today for chronic pain control. PCP: Dr. Lopez Social Hx: Denies cigarette, alcohol, or illicit drug usage Allergies: NKDA, NKA Past History - Past Medical History Allergies/Adverse Reactions: Allergies Allergy/AdvReac Type Severity Reaction Status Date / Time No Known Drug Allergies Allergy Verified 07/02/18 11:52 Home Medications: Ambulatory Orders Apixaban [Eliquis -] 5 mg PO BID 10/07/17 Levothyroxine [Synthroid -] 50 mcg PO DAILY 10/07/17 Pantoprazole Sodium [Protonix -] 40 mg PO DAILY 10/07/17 Paroxetine HCl [Paxil -] 30 mg PO DAILY 10/07/17 Pregabalin [Lyrica -] 75 mg PO BID 10/07/17 Tamsulosin HCl [Flomax -] 0.4 mg PO DAILY 10/07/17 Valacyclovir HCl [Valtrex -] 500 mg PO BID 10/07/17 Magnesium Oxide [Mag-Ox -] 400 mg PO BID tablet 10/16/17 Oxycodone HCl/Acetaminophen [Percocet 5-325 mg Tablet] 1 combo PO Q6H PRN tablet MDD 4 10/16/17 Multivit-Min/FA/Lycopen/Lutein [Centrum Silver Tablet] 1 tab PO DAILY 06/13/18 Acetaminophen [Tylenol .Regular Strength -] 650 mg PO Q6H PRN tablet 06/20/18 Docusate Sodium [Colace -] 100 mg PO Q12H PRN capsule 06/20/18 FENTANYL 12mcg PATCH [DURAGESIC 12mcg PATCH -] 1 patch TD Q72H #4 patch.td72 NS MDD 1 06/20/18 Metoprolol Succinate [Toprol XL -] 50 mg PO DAILY tab.sr.24h 06/20/18 Anemia: Yes Asthma: No Cancer: Yes (multiple myeloma, melanoma, parotid) Cardiac Disorders: No CVA: No COPD: No CHF: No Dementia: No Diabetes: No GI Disorders: No Disorders: No HTN: Yes Hypercholesterolemia: No Liver Disease: No Seizures: No Thyroid Disease: No - Surgical History Abdominal Surgery: Yes (COLOSTOMY) Appendectomy: No Cardiac Surgery: No Cholecystectomy: No Lung Surgery: No Neurologic Surgery: No Orthopedic Surgery: Yes (VERTEBROPLASTY) - Immunization History Immunization Up to Date: Yes - Suicide/Smoking/Psychosocial Hx Smoking History: Never smoked Have you smoked in the past 12 months: No Number of Cigarettes Smoked Daily: 0 Information on smoking cessation initiated: No Hx Alcohol Use: No Drug/Substance Use Hx: No Substance Use Type: None Hx Substance Use Treatment: No Review of Systems - Review of Systems Comments:: CONSTITUTIONAL: Present: Fever, chills, fatigue EYES: Absent: visual changes ENT: Present gurgling Absent: ear pain, no sore throat CARDIOVASCULAR: Present: Chest pain Absent: no palpitations RESPIRATORY: Present: Cough, SOB GI: Absent: abdominal pain, no nausea, no vomiting, no constipation, no diarrhea GENITOURINARY: Absent: dysuria, no frequency, no hematuria MUSKULOSKELETAL: Absent: back pain, no arthralgia, no myalgia SKIN: Absent: rash NEURO: Absent: headache *Physical Exam - Vital Signs Last Vital Signs Temp Pulse Resp BP Pulse Ox 98.1 F 86 16 90/57 L 100 07/02/18 11:48 07/02/18 11:48 07/02/18 11:48 07/02/18 11:48 07/02/18 11:48 - Physical Exam Comments: GENERAL: Patient is lying down on the bed has multiple chronic appearing echymosis, has a partial facial paralysis, and an eye patch over the R eye. He does not apprea to be in distress. HEENT: R sided eye patch. R side of mouth is open. L eye is closed. Oropharynx is not erythematous. No adenopathy appreciated. CARDIOVASCULAR: Normal S1, S2. Regular rate and rhythm. PULMONARY: There are crackles on the Right. No rales or rhonchi. ABDOMEN: Soft, non-distended, non-tender. EXTREMITIES: Limited ROM in all four extremities. No gross deformities. SKIN: Warm, dry. Multiple echymosis NEUROLOGICAL: Patient has permanent L sided weakness, decreased sensation, and partial R sided facial paralysis Procedures - Central Line Central Line Lumen: triple Central Line Position: internal jugular (R) Anesthesia: 1% Lidocaine Amount of anesthesia (ccs): 5 Complications: none Post Central Line Insertion: sutured, good blood return, position confirmed w/ CXR ED Treatment Course - LABORATORY CBC & Chemistry Diagram: 07/02/18 15:32 07/02/18 15:32 - RADIOLOGY Radiology Studies Ordered: Category Date Time Status CHEST X-RAY PORTABLE* [RAD] Stat Radiology 07/02/18 12:04 Ordered Medical Decision Making - Medical Decision Making 78 year old male with a PMH of multiple myeloma, hypothyroidism, Type 2 DM, HTN , Paroxysmal AFIb (on Eliquis), GERD, Parotid tumor (s/p resection) R facial nerve injury, R sided blindness, partial SC compression and frequent falls was BIBEMS from [facility] with the CC of "pneumonia." EMS states the [place] [facility] said he had a fever of 101.7 last night and has had a productive cough for the past 2 days associated with diaphoresis. DD includes but not limited to: ACS, PNA, aspiration, multiple myeloma flair up , PE, pneumothorax Plan: ED adult sepsis workup - rainbow labs, urine, CXR, EKG. Patient will be admitted after ER workup. Chest CT showed bilateral PNA associated with b/l pleural effusions, and R sided infiltrate CTAP showed subcutaneous air in the region of the colostomy tube which could represent bowel perforation, inflammation, or infection. We placed an IJ central line given difficult peripheral IV access and likely need for mass fluid transfusion along with pressors. -Patient was noted to have AFIB with rapid RVR - Trying Adenosine in the ED. Will give digoxin if Adenosine doesn't work. *DC/Admit/Observation/Transfer Diagnosis at time of Disposition: Pneumonia, Sepsis - Discharge Dispostion Decision to Admit order: Yes - Referrals Referrals: Caren Lopez MD [Primary Care Provider] - - Patient Instructions - Post Discharge Activity
--- NOTE | 2018-07-02 13:24 | PDOC ---
Attending Attestation - Resident Resident Name: Raul Egan - ED Attending Attestation I have performed the following: I have examined & evaluated the patient, The case was reviewed & discussed with the resident, I agree w/resident's findings & plan, Exceptions are as noted - HPI HPI: 07/02/18 15:53 78 years old past medical history significant for multiple myeloma, type 2 diabetes, hypothyroidism, hypertension, paroxysmal A. fib, right-sided blindness spinal cord compression presents ED with generalized weakness productive cough fever Tmax 101.7 - Physicial Exam PE: 07/02/18 15:53 Vitals: Triage Vital signs reviewed General Appearance: no acute distress, well nourished well developed, Neck: Supple;No Nucal rigidity Chest Wall: Nontender Cardiac: Regular rate and rhythym, no murmurs, no rubs, no gallops, Lungs: Coarse breath sounds bilaterally Abdomen: Soft, non distended, normal bowel sounds, non tender to palpation Extremities: Full range of motion to all extremities, no cyanosis, clubbing, or edema Skin: Multiple bruises to extremities. Neuro: Strength intact to all extremities, Sensation intact to all extremities Psych: normal mood, normal affect - Medical Decision Making History and examination consistent with hospital-acquired pneumonia Patient ordered for vancomycin and Zosyn. IVF ordered. We'll admit to medicine for further management after laboratory analysis returns.
[2018-07-02 15:27] LABS: ALBUMIN 1.6 g/dl (3.4-5.0); ALK PHOS 109 U/L (45-117); ANION GAP 5 MMOL/L (8-16); BILIRUBIN,TOTAL 0.8 mg/dL (0.2-1); BLOOD UREA NITROGEN 34 mg/dL (7-18); CALCIUM 8.3 mg/dL (8.5-10.1); CHLORIDE 109 mmol/L (98-107); CO2 30 mmol/L (21-32); CREATININE 0.6 mg/dL (0.55-1.3); GLUCOSE,RANDOM 99 mg/dL (74-106); POTASSIUM 4.1 mmol/L (3.5-5.1); SGOT/AST 32 U/L (15-37); SGPT/ALT 37 U/L (13-61); SODIUM 144 mmol/L (136-145); TOT PROT 5.2 g/dl (6.4-8.2)
[2018-07-02] MEDS ORDERED: VANCOMYCIN 1,000 MG in DEXTROSE 5%-WATER - 250 ML IVPB ONE (15:46)
[2018-07-02] MEDS ORDERED: PIPERACILLIN/TAZOB 3.375 GM 3.375 GM in DEXTROSE 5%-WATER - 50 ML IVPB ONE ×2 (15:46→23:31)
[2018-07-02] MEDS ORDERED: VANCOMYCIN 1 GRAM (PRE-DOCKED) 1,000 MG/250 ML BAG IVPB ONE (16:07)
[2018-07-02] MEDS ORDERED: PIPERACILLIN/TAZOB 3.375 GM 3.375 GM/50 ML BAG IVPB ONE (16:09)
[2018-07-02 16:10] LABS: VENOUS PH 7.41 (7.32-7.42); VENOUS PO2 25.1 mmHg (28-48)
[2018-07-02 16:44] LABS: BASO % 0.1 % (0-2.0); EOS % 2.4 % (0-4.5); HEMATOCRIT 28.4 % (35.4-49); HEMOGLOBIN 8.9 GM/dL (11.7-16.9); LYMPH % 3.4 % (8-40); MCH 31.7 pg (25.7-33.7); MCHC 31.4 g/dl (32.0-35.9); MEAN PLT VOLUME 9.8 fl (7.5-11.1); MONO % 5.5 % (3.8-10.2); NEUT % 88.6 % (42.8-82.8); PLATELET COUNT 253 K/MM3 (134-434); RBC 2.81 M/mm3 (4.00-5.60); RDW 19.7 % (11.9-15.9); WHITE BLOOD COUNT 7.5 K/mm3 (4.0-10.0)
[2018-07-02 16:45] LABS: INR 1.44 (0.83-1.09)
[2018-07-02 16:48] LABS: ACTIVATED PTT 35.5 SECONDS (25.2-36.5)
[2018-07-02 17:06] LABS: ALBUMIN 1.6 g/dl (3.4-5.0); ALK PHOS 108 U/L (45-117); ANION GAP 9 MMOL/L (8-16); BILIRUBIN,TOTAL 0.8 mg/dL (0.2-1); BLOOD UREA NITROGEN 36 mg/dL (7-18); CALCIUM 8.2 mg/dL (8.5-10.1); CHLORIDE 107 mmol/L (98-107); CO2 30 mmol/L (21-32); CREATININE 0.8 mg/dL (0.55-1.3); GLUCOSE,RANDOM 87 mg/dL (74-106); POTASSIUM 4.2 mmol/L (3.5-5.1); SGOT/AST 31 U/L (15-37); SGPT/ALT 35 U/L (13-61); SODIUM 146 mmol/L (136-145); TOT PROT 5.2 g/dl (6.4-8.2)
[2018-07-02 18:21] LABS: ACANTHOCYTES 1+; ANISOCYTOSIS 2+; MACROCYTOSIS 2+; OVALOCYTE 1+; PLATELET ESTIMATE ADEQUATE
[2018-07-02] MEDS ORDERED: LIDOCAINE HCL 2% JELLY 10 ML CARTRIDGE ONE (19:15)
[2018-07-02] MEDS ORDERED: LIDOCAINE HCL 2% JELLY 10 ML CARTRIDGE UR ONE (19:16)
--- NOTE | 2018-07-02 20:05 | PDOC ---
*Physical Exam - Vital Signs Last Vital Signs Temp Pulse Resp BP Pulse Ox 98.1 F 86 16 90/57 L 100 07/02/18 11:48 07/02/18 11:48 07/02/18 11:48 07/02/18 11:48 07/02/18 11:48 ED Treatment Course - LABORATORY CBC & Chemistry Diagram: 07/02/18 15:32 07/02/18 15:32 - ADDITIONAL ORDERS Additional order review: Laboratory Results 07/02/18 07/02/18 07/02/18 18:29 15:55 15:32 PT with INR INR PTT (Actin FS) VBG pH 7.41 POC VBG pCO2 51.0 POC VBG pO2 25.1 L Mixed VBG HCO3 31.4 H Sodium 146 H Potassium 4.2 Chloride 107 Carbon Dioxide 30 Anion Gap 9 BUN 36 H Creatinine 0.8 Creat Clearance w eGFR > 60 Random Glucose 87 Lactic Acid 2.2 H* Calcium 8.2 L Total Bilirubin 0.8 AST 31 ALT 35 Alkaline Phosphatase 108 Total Protein 5.2 L Albumin 1.6 L 07/02/18 07/02/18 15:22 14:50 PT with INR 17.00 H INR 1.44 H PTT (Actin FS) 35.5 VBG pH POC VBG pCO2 POC VBG pO2 Mixed VBG HCO3 Sodium 144 Potassium 4.1 Chloride 109 H Carbon Dioxide 30 Anion Gap 5 L BUN 34 H Creatinine 0.6 Creat Clearance w eGFR > 60 Random Glucose 99 Lactic Acid Calcium 8.3 L Total Bilirubin 0.8 AST 32 ALT 37 Alkaline Phosphatase 109 Total Protein 5.2 L Albumin 1.6 L 07/02/18 07/02/18 15:32 14:50 RBC 2.81 L Cancelled MCV 101.0 H Cancelled MCHC 31.4 L Cancelled RDW 19.7 H Cancelled MPV 9.8 D Cancelled Neutrophils % 88.6 H Cancelled Lymphocytes % 3.4 L D Cancelled Monocytes % 5.5 Cancelled Eosinophils % 2.4 D Cancelled Basophils % 0.1 Cancelled - Medications Given in the ED: ED Medications Discontinued Medications Generic Name Dose Route Start Last Admin Trade Name Freq PRN Reason Stop Dose Admin Piperacillin Sod/Tazobactam 50 mls @ 100 mls/hr 07/02/18 15:46 07/02/18 16:21 Sod 3.375 gm/ Dextrose IVPB 07/02/18 16:15 100 mls/hr ONCE ONE Administration Protocol Sodium Chloride 1,905 ml 07/02/18 12:04 07/02/18 14:44 Normal Saline - 30 ml/kg (1905 ml) 07/02/18 12:05 1,905 ml IV Administration ONCE STA Medical Decision Making - Medical Decision Making 07/02/18 20:01 78 yo male h/o afib, mult myeloma, signed out to me by dr. swain, awaiting ct a/ p. currently being treated for suspected pna, and sepsis. pt had ct a/p pending . being treated with abx. d/w with and pt daughter, and patient. has current DNR orders. d/w him regarding possible central line and pressors, at this pt does not want invasive treatment. awaiting icu callback for admission. 07/02/18 21:34 further discussion with pt and family, would like central line due to instability and difficulty with access. pt requiring mutliple sticks for iv, central line placed under sterile condition with us guidance. tolerated well. *DC/Admit/Observation/Transfer Diagnosis at time of Disposition: Pneumonia, Sepsis - Referrals Referrals: Caren Lopez MD [Primary Care Provider] - - Patient Instructions - Post Discharge Activity
[2018-07-02] MEDS ORDERED: dilTIAZem HCL 50 MG/10 ML - 10 ML VIAL IVPUSH ONE (21:41)
[2018-07-02] MEDS ORDERED: dilTIAZem HCL 125 MG/25 ML - 25 ML VIAL ONE (22:26)
--- NOTE | 2018-07-02 22:28 | CONSULT ---
Consultation: REQUESTING PROVIDER: CONSULT REQUEST: We have been asked to medically evaluate this patient for ( sepsis). 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 Per [place] records patient has had productive cough with diaphoresis x 2 days. In ED patient is found to be hypotensive MAP 63-68, systolic 88-90,tachycardic 160 (looks like 2: 1 flutter or svt on ekg w/o ischemic changes) and desatting. His baseline BP from other admissions is frequently in tyron 90'-low 100's systolic. After 2 L of NS, patiets BP is stabilized at MAP is 79 and he is satting 98% on 5L NC. His HR has not yet been treated due to initial hypotension and remains 160. The colostomy is pink, with present soft stool, however, the tissue around in is noted to have pneumonitis with creputus and edema. CT abdomen as well shows superficial tissue pneumonitis. Per Daughter, who is an EMS worker, this is new. She states that his is currently at baseline mental status AAOx3. he is bedbound. CT chest showed bibasal infiltrates. Patient complains of some chest discomfort and superficial abdominal pain around colostomy site. denies sob, dizziness, n/v, h/a. ED placed a R IJ. Patient was admitted with similar symptoms 06/15/18: aspir pna, dehydration, lethargy, hypotension REVIEW OF SYSTEMS: CONSTITUTIONAL: Absent: fever, chills HEENT: Absent: throat pain, visual changes CARDIOVASCULAR: Absent: syncope, lightheadedness, peripheral edema RESPIRATORY: Absent: shortness of breath, orthopnea, hemoptysis GASTROINTESTINAL: Absent: abdominal distension, nausea, vomiting, melena, hematochezia GENITOURINARY: Absent: dysuria, flank pain MUSCULOSKELETAL: Absent: back pain SKIN: Absent: rash, itching, pallor HEMATOLOGIC/IMMUNOLOGIC: Absent: frequent infections ENDOCRINE: Absent: heat intolerance, cold intolerance NEUROLOGIC: Absent: headache, mental status changes PSYCHIATRIC: Absent: anxiety, depression, suicidal or homicidal ideation, hallucinations. PHYSICAL EXAMINATION Vital Signs - 24 hr 07/02/18 07/02/18 11:48 12:04 Temperature 98.1 F Pulse Rate 86 Respiratory 16 Rate Blood Pressure 90/57 L O2 Sat by Pulse 100 100 Oximetry (%) GENERAL: Awake, alert, and fully oriented, in no acute distress, lethargic but this is baseline per Daughter. appears dry HEAD: Normal with no signs of trauma. EYES: R eye patch. L eye PRRL, scler aanicteric EARS, NOSE, THROAT: dry mucous membranes. NECK: supple without JVD LUNGS: bibasilar ronchi, wet productive cough HEART: tacy, regular, S1 and S2 ABDOMEN: L colostomy pink. surrounding tissue + crepitus, pink edema extending from proximal colostomy to L flank, superficially tender, hard and warm. + bowel sounds MUSCULOSKELETAL: No CVA tenderness. UPPER EXTREMITIES: 2+ pulses, warm, well-perfused. No peripheral edema. LOWER EXTREMITIES: 2+ pulses, warm, well-perfused. No calf tenderness. no peripheral edema. NEUROLOGICAL: R facial asymmetry PSYCHIATRIC: Cooperative. responds to questions appropriately SKIN: Warm, dry, decreased turgor Laboratory Results - last 24 hr 07/02/18 07/02/18 07/02/18 14:50 14:50 15:22 WBC Cancelled Corrected WBC (auto) Cancelled RBC Cancelled Hgb Cancelled Hct Cancelled MCV Cancelled MCH Cancelled MCHC Cancelled RDW Cancelled Plt Count Cancelled MPV Cancelled Absolute Neuts (auto) Cancelled Neutrophils % Cancelled Neutrophils % (Manual) Lymphocytes % Cancelled Lymphocytes % (Manual) Monocytes % Cancelled Monocytes % (Manual) Eosinophils % Cancelled Eosinophils % (Manual) Basophils % Cancelled Nucleated RBC % Cancelled Hypochromia Platelet Estimate Cancelled Platelet Comment Cancelled Anisocytosis Microcytosis Macrocytosis Ovalocytes Acanthocytes (Spur) PT with INR 17.00 H INR 1.44 H PTT (Actin FS) 35.5 VBG pH POC VBG pCO2 POC VBG pO2 Mixed VBG HCO3 Sodium 144 Potassium 4.1 Chloride 109 H Carbon Dioxide 30 Anion Gap 5 L BUN 34 H Creatinine 0.6 Creat Clearance w eGFR > 60 Random Glucose 99 Lactic Acid Calcium 8.3 L Total Bilirubin 0.8 AST 32 ALT 37 Alkaline Phosphatase 109 Total Protein 5.2 L Albumin 1.6 L 07/02/18 07/02/18 07/02/18 15:32 15:32 15:55 WBC 7.5 Corrected WBC (auto) RBC 2.81 L Hgb 8.9 L Hct 28.4 L MCV 101.0 H MCH 31.7 MCHC 31.4 L RDW 19.7 H Plt Count 253 MPV 9.8 D Absolute Neuts (auto) 6.7 Neutrophils % 88.6 H Neutrophils % (Manual) 86.0 H Lymphocytes % 3.4 L D Lymphocytes % (Manual) 9.0 D Monocytes % 5.5 Monocytes % (Manual) 3 L Eosinophils % 2.4 D Eosinophils % (Manual) 2.0 D Basophils % 0.1 Nucleated RBC % 0 Hypochromia 1+ Platelet Estimate Adequate Platelet Comment No clumping noted Anisocytosis 2+ Microcytosis 1+ Macrocytosis 2+ Ovalocytes 1+ Acanthocytes (Spur) 1+ PT with INR INR PTT (Actin FS) VBG pH 7.41 POC VBG pCO2 51.0 POC VBG pO2 25.1 L Mixed VBG HCO3 31.4 H Sodium 146 H Potassium 4.2 Chloride 107 Carbon Dioxide 30 Anion Gap 9 BUN 36 H Creatinine 0.8 Creat Clearance w eGFR > 60 Random Glucose 87 Lactic Acid Calcium 8.2 L Total Bilirubin 0.8 AST 31 ALT 35 Alkaline Phosphatase 108 Total Protein 5.2 L Albumin 1.6 L 07/02/18 18:29 WBC Corrected WBC (auto) RBC Hgb Hct MCV MCH MCHC RDW Plt Count MPV Absolute Neuts (auto) Neutrophils % Neutrophils % (Manual) Lymphocytes % Lymphocytes % (Manual) Monocytes % Monocytes % (Manual) Eosinophils % Eosinophils % (Manual) Basophils % Nucleated RBC % Hypochromia Platelet Estimate Platelet Comment Anisocytosis Microcytosis Macrocytosis Ovalocytes Acanthocytes (Spur) PT with INR INR PTT (Actin FS) VBG pH POC VBG pCO2 POC VBG pO2 Mixed VBG HCO3 Sodium Potassium Chloride Carbon Dioxide Anion Gap BUN Creatinine Creat Clearance w eGFR Random Glucose Lactic Acid 2.2 H* Calcium Total Bilirubin AST ALT Alkaline Phosphatase Total Protein Albumin ASSESSMENT/PLAN: This is a 78 yo M [facility] resident with PMH of aspiration PNA (earlier this year), Paroxysmal AFIb (on Eliquis) usually well controlled with BB, L colostomy Dr Treviño 2015, multiple myeloma, hypothyroidism, Type 2 DM, HTN, GERD, 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 Severe sepsis fluid responsive hypotension: sepsis and tachycardia component paroxysmal AF now in 2:1 flutter vs SVT, likley provoked by sepsis b/l Aspiration PNA superficial abdominal pneumonitis around colostomy site. r/o perf hypothyroid DM HTN MM GERD R facial nerve palsy s/p parotid tumor resection r eye blindness -hemodynamically stable MAP 79 after 2L crystalloid, however still dry based on appearance, elevated sodium and BUN. Continue IVF resuscitation NS @ 100 -respiratory status stable on 5L NC; continuous pule ox -svt sepsis provoked and fluid contraction provoked: would push adenosine first. potential for cardizem push or digoxin push if BP drops. check TFT's. -abx coverage with zosyn, vanco -surgery consult for abd pneumonitis -lactic acid 2.2, should improve with IVF -NPO until surgery eval -ISS, BGM Q4H -iv ppi, hep ggt instead of eliquis -tele monitoring Dispo: patient is hemodnamically stable/fluid responsive. respiratory stable. Initial resuscitation is not yet complete. If HR can be controlled by IV pushes , he will benefit from telemetry but is not an ICU candidate. Please consult ICU if HR control requires a drip, if BP is no longer fluid responsive or if respiratory status declines. Problem List - Problems (1) Severe sepsis Code(s): A41.9 - SEPSIS, UNSPECIFIED ORGANISM; R65.20 - SEVERE SEPSIS WITHOUT SEPTIC SHOCK (2) SVT (supraventricular tachycardia) Code(s): I47.1 - SUPRAVENTRICULAR TACHYCARDIA (3) Aspiration pneumonia Code(s): J69.0 - PNEUMONITIS DUE TO INHALATION OF FOOD AND VOMIT (4) Pneumonitis Code(s): J18.9 - PNEUMONIA, UNSPECIFIED ORGANISM (5) Pneumonia Code(s): J18.9 - PNEUMONIA, UNSPECIFIED ORGANISM (6) Sepsis Code(s): A41.9 - SEPSIS, UNSPECIFIED ORGANISM (7) Colostomy status Code(s): Z93.3 - COLOSTOMY STATUS (8) Dehydration Code(s): E86.0 - DEHYDRATION (9) HTN (hypertension) Code(s): I10 - ESSENTIAL (PRIMARY) HYPERTENSION Qualifiers: Hypertension type: essential hypertension Qualified Code(s): I10 - Essential (primary) hypertension (10) Hypotension Code(s): I95.9 - HYPOTENSION, UNSPECIFIED (11) Hypothyroidism Code(s): E03.9 - HYPOTHYROIDISM, UNSPECIFIED Qualifiers: Hypothyroidism type: unspecified Qualified Code(s): E03.9 - Hypothyroidism , unspecified (12) Multiple myeloma Code(s): C90.00 - MULTIPLE MYELOMA NOT HAVING ACHIEVED REMISSION Qualifiers: Multiple myeloma remission status: not in remission Qualified Code(s): C90.00 - Multiple myeloma not having achieved remission (13) Paroxysmal A-fib Code(s): I48.0 - PAROXYSMAL ATRIAL FIBRILLATION (14) Tachycardia, paroxysmal Code(s): I47.9 - PAROXYSMAL TACHYCARDIA, UNSPECIFIED Visit type - Emergency Visit Emergency Visit: Yes Care time: The patient presented to the Emergency Department on the above date and was hospitalized for further evaluation of their emergent condition. - New Patient This patient is new to me today: Yes Date on this admission: 07/02/18 - Critical Care Critical Care patient: No
[2018-07-02] MEDS ORDERED: ADENOSINE 6 MG/2 ML VIAL IVPUSH ONE ×2 (22:34→22:35)
[2018-07-02 23:19] LABS: URINE APPEARANCE CLEAR; URINE BILIRUBIN NEGATIVE (<2.0 mg/dL); URINE COLOR AMBER; URINE GLUCOSE (UA) NEGATIVE (NEGATIVE); URINE KETONE NEGATIVE (NEGATIVE); URINE LEUK ESTERASE NEGATIVE (NEGATIVE); URINE NITRITE NEGATIVE (NEGATIVE); URINE PROTEIN NEGATIVE (NEGATIVE); URINE UROBILINOGEN NEGATIVE mg/dL (0.2-1.0)
[2018-07-02] MEDS ORDERED: HEPARIN NA (PORCINE) 5,000 UNITS/ML 1ML VIAL IVPUSH PRN ×2 (23:44)
[2018-07-02] MEDS ORDERED: SODIUM CHLORIDE 1,000 ML IV SCH (23:45)
[2018-07-02] MEDS ORDERED: APIXABAN 5 MG TABLET PO SCH (23:45)
[2018-07-02] MEDS ORDERED: MORPHINE SULFATE 2 MG/ML VIAL IVPUSH PRN (23:55)
[2018-07-02] MEDS ORDERED: ACETAMINOPHEN 325 MG TABLET (FP) PO PRN (23:58)
[2018-07-03] MEDS ORDERED: oxyCODONE HCL 5 MG TABLET PO PRN (00:04)
[2018-07-03] MEDS ORDERED: ACETAMINOPHEN 325 MG TABLET (FP) PO PRN (00:05)
[2018-07-03 00:09] LABS: MAGNESIUM 2.3 mg/dL (1.8-2.4); PHOSPHOROUS 3.9 mg/dL (2.5-4.9)
[2018-07-03] MEDS ORDERED: ADENOSINE 6 MG/2 ML VIAL IVPUSH ONE ×5 (00:25→20:47)
--- NOTE | 2018-07-03 00:59 | PDOC ---
*Physical Exam - Vital Signs Last Vital Signs Temp Pulse Resp BP Pulse Ox 98.1 F 86 16 90/57 L 100 07/02/18 11:48 07/02/18 11:48 07/02/18 11:48 07/02/18 11:48 07/02/18 12:04 ED Treatment Course - LABORATORY CBC & Chemistry Diagram: 07/02/18 15:32 07/02/18 15:32 - ADDITIONAL ORDERS Additional order review: Laboratory Results 07/02/18 07/02/18 07/02/18 23:08 23:08 18:29 PT with INR INR PTT (Actin FS) VBG pH POC VBG pCO2 POC VBG pO2 Mixed VBG HCO3 Sodium Potassium Chloride Carbon Dioxide Anion Gap BUN Creatinine Creat Clearance w eGFR Random Glucose Lactic Acid 1.6 2.2 H* Calcium Phosphorus Magnesium Total Bilirubin AST ALT Alkaline Phosphatase Total Protein Albumin TSH Free T4 Urine Color Lana Urine Appearance Clear Urine pH 5.0 Ur Specific [place] 1.027 Urine Protein Negative Urine Glucose (UA) Negative Urine Ketones Negative Urine Blood Negative Urine Nitrite Negative Urine Bilirubin Negative Urine Urobilinogen Negative Ur Leukocyte Esterase Negative 07/02/18 07/02/18 07/02/18 15:55 15:32 15:22 PT with INR 17.00 H INR 1.44 H PTT (Actin FS) 35.5 VBG pH 7.41 POC VBG pCO2 51.0 POC VBG pO2 25.1 L Mixed VBG HCO3 31.4 H Sodium 146 H Potassium 4.2 Chloride 107 Carbon Dioxide 30 Anion Gap 9 BUN 36 H Creatinine 0.8 Creat Clearance w eGFR > 60 Random Glucose 87 Lactic Acid Calcium 8.2 L Phosphorus 3.9 Magnesium 2.3 Total Bilirubin 0.8 AST 31 ALT 35 Alkaline Phosphatase 108 Total Protein 5.2 L Albumin 1.6 L TSH 1.33 D Free T4 1.16 Urine Color Urine Appearance Urine pH Ur Specific [place] Urine Protein Urine Glucose (UA) Urine Ketones Urine Blood Urine Nitrite Urine Bilirubin Urine Urobilinogen Ur Leukocyte Esterase 07/02/18 14:50 PT with INR INR PTT (Actin FS) VBG pH POC VBG pCO2 POC VBG pO2 Mixed VBG HCO3 Sodium 144 Potassium 4.1 Chloride 109 H Carbon Dioxide 30 Anion Gap 5 L BUN 34 H Creatinine 0.6 Creat Clearance w eGFR > 60 Random Glucose 99 Lactic Acid Calcium 8.3 L Phosphorus Magnesium Total Bilirubin 0.8 AST 32 ALT 37 Alkaline Phosphatase 109 Total Protein 5.2 L Albumin 1.6 L TSH Free T4 Urine Color Urine Appearance Urine pH Ur Specific [place] Urine Protein Urine Glucose (UA) Urine Ketones Urine Blood Urine Nitrite Urine Bilirubin Urine Urobilinogen Ur Leukocyte Esterase 07/02/18 07/02/18 15:32 14:50 RBC 2.81 L Cancelled MCV 101.0 H Cancelled MCHC 31.4 L Cancelled RDW 19.7 H Cancelled MPV 9.8 D Cancelled Neutrophils % 88.6 H Cancelled Lymphocytes % 3.4 L D Cancelled Monocytes % 5.5 Cancelled Eosinophils % 2.4 D Cancelled Basophils % 0.1 Cancelled - Medications Given in the ED: ED Medications Discontinued Medications Generic Name Dose Route Start Last Admin Trade Name Freq PRN Reason Stop Dose Admin Adenosine 6 mg 07/02/18 22:34 07/02/18 22:42 Adenocard - IVPUSH 07/02/18 22:35 6 mg ONCE ONE Administration Diltiazem HCl 10 mg 07/02/18 21:41 07/02/18 22:51 Cardizem Injection - IVPUSH 07/02/18 21:42 Not Given ONCE ONE Vancomycin HCl 1,000 mg/ 250 mls @ 166.667 mls/hr 07/02/18 15:46 07/02/18 17: 15 Dextrose IVPB 07/02/18 17:15 166.667 mls/hr ONCE ONE Administration Protocol Piperacillin Sod/Tazobactam 50 mls @ 100 mls/hr 07/02/18 15:46 07/02/18 16:21 Sod 3.375 gm/ Dextrose IVPB 07/02/18 16:15 100 mls/hr ONCE ONE Administration Protocol Sodium Chloride 1,905 ml 07/02/18 12:04 07/02/18 14:44 Normal Saline - 30 ml/kg (1905 ml) 07/02/18 12:05 1,905 ml IV Administration ONCE STA Medical Decision Making - Medical Decision Making 07/03/18 00:[address] received sign out from Dr. Egan pt to be admitted to ICU *DC/Admit/Observation/Transfer Diagnosis at time of Disposition: Pneumonia, Sepsis - Referrals Referrals: Caren Lopez MD [Primary Care Provider] - - Patient Instructions - Post Discharge Activity
[2018-07-03] MEDS ORDERED: SODIUM CHLORIDE 1,000 ML IV STA (01:24)
[2018-07-03] MEDS ORDERED: DIGOXIN 0.5 MG/2 ML AMPUL IVPUSH ONE (01:30)
[2018-07-03] MEDS ORDERED: ACETAMINOPHEN 1000 MG/100 ML VIAL (NON FORMULARY) IVPB PRN (01:40)
[2018-07-03] MEDS ORDERED: AMIODARONE HCL 150 MG/3 ML VIAL IVPUSH ONE (01:45)
[2018-07-03] MEDS ORDERED: PIPERACILLIN/TAZOBACTAM 3.375 GM VIAL IVPB ONE ×2 (02:11→09:34)
[2018-07-03] MEDS ORDERED: DEXTROSE 5%-WATER - 50 ML IVPB ONE ×2 (02:11→09:34)
[2018-07-03] MEDS: HYDROCORTISONE SOD SUCCINATE 100 MG/2 ML VIAL IVPB SCH ×2 (02:12→09:48)
--- NOTE | 2018-07-03 02:13 | CONSULT ---
Consult Consult Specialty:: General Surgery Reason for Consultation:: subQ gas at colostomy - History of Present Illness Chief Complaint: subcutaneous gas at colostomy History of Present Illness: 76 yo male, with PMH anemia, HTN, multiple myeloma, paroxsysmal Afib, and osteoporosis, who presents to the emergency department with diffuse lower abdominal pain on the right. 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: Syncope, Other (Residual right lower neuron facial palsy) Cardio/Vascular: Yes: AFIB, CAD, HTN, Hyperlipdemia, Other (PSVT) Pulmonary: No: Bronchitis (no chronic sputum production says current sputum production isnew) Renal/: Yes: BPH, Neurogenic Bladder, UTI Infectious Disease: Yes: Other (fever possible aspiration pneumonia) ENT: Yes: Other (legally blind right eye) Dermatology: Yes: Melanoma - Past Surgical History Past Surgical History: Yes: Colostomy (For sigmoid colon resection after perforation) - Alcohol/Substance Use Hx Alcohol Use: No - Smoking History Smoking history: Never smoked Have you smoked in the past 12 months: No Aproximately how many cigarettes per day: 0 - Social History ADL: Support Services History of Recent Travel: No Home Medications - Allergies Allergies/Adverse Reactions: Allergies Allergy/AdvReac Type Severity Reaction Status Date / Time No Known Drug Allergies Allergy Verified 07/02/18 11:52 - Home Medications Home Medications: Ambulatory Orders Apixaban [Eliquis -] 5 mg PO BID 10/07/17 Levothyroxine [Synthroid -] 50 mcg PO DAILY 10/07/17 Pantoprazole Sodium [Protonix -] 40 mg PO DAILY 10/07/17 Paroxetine HCl [Paxil -] 30 mg PO DAILY 10/07/17 Pregabalin [Lyrica -] 75 mg PO BID 10/07/17 Tamsulosin HCl [Flomax -] 0.4 mg PO DAILY 10/07/17 Valacyclovir HCl [Valtrex -] 500 mg PO BID 10/07/17 Magnesium Oxide [Mag-Ox -] 400 mg PO BID tablet 10/16/17 Oxycodone HCl/Acetaminophen [Percocet 5-325 mg Tablet] 1 combo PO Q6H PRN tablet MDD 4 10/16/17 Multivit-Min/FA/Lycopen/Lutein [Centrum Silver Tablet] 1 tab PO DAILY 06/13/18 Acetaminophen [Tylenol .Regular Strength -] 650 mg PO Q6H PRN tablet 06/20/18 Docusate Sodium [Colace -] 100 mg PO Q12H PRN capsule 06/20/18 FENTANYL 12mcg PATCH [DURAGESIC 12mcg PATCH -] 1 patch TD Q72H #4 patch.td72 NS MDD 1 06/20/18 Metoprolol Succinate [Toprol XL -] 50 mg PO DAILY tab.sr.24h 06/20/18 Physical Exam Vital Signs: Vital Signs Temperature 98.1 F 07/02/18 11:48 Pulse Rate 86 07/02/18 11:48 Respiratory Rate 16 07/02/18 11:48 Blood Pressure 90/57 L 07/02/18 11:48 O2 Sat by Pulse Oximetry (%) 100 07/02/18 12:04 Gastrointestinal: Yes: Normal Bowel Sounds, Soft, Tenderness (RLQ, erytherma crepitus). No: Tenderness, Epigastrium, Tenderness, Rebound Renal/: No: CVA Tenderness - Left, CVA Tenderness - Right Extremities: No: Cool, Cyanosis Labs: CBC, BMP 07/02/18 15:32 07/02/18 15:32 Problem List - Problems (1) Abscess of colostomy Assessment/Plan: 78 yo male MMP including multiple myeloma with recent breakdown of colostomy which was placed [address] Treviño bowel perforation. NPO and IVF hydration IV antibiotics Please contact Dr. Treviño regarding this recent development as he may require revision Code(s): K94.02 - COLOSTOMY INFECTION (2) Colostomy complication Code(s): K94.00 - COLOSTOMY COMPLICATION, UNSPECIFIED (3) Aspiration pneumonia Code(s): J69.0 - PNEUMONITIS DUE TO INHALATION OF FOOD AND VOMIT (4) SVT (supraventricular tachycardia) Code(s): I47.1 - SUPRAVENTRICULAR TACHYCARDIA (5) Sepsis Code(s): A41.9 - SEPSIS, UNSPECIFIED ORGANISM (6) HTN (hypertension) Code(s): I10 - ESSENTIAL (PRIMARY) HYPERTENSION Qualifiers: Hypertension type: essential hypertension Qualified Code(s): I10 - Essential (primary) hypertension (7) Hypothyroidism Code(s): E03.9 - HYPOTHYROIDISM, UNSPECIFIED Qualifiers: Hypothyroidism type: unspecified Qualified Code(s): E03.9 - Hypothyroidism , unspecified (8) Multiple myeloma Code(s): C90.00 - MULTIPLE MYELOMA NOT HAVING ACHIEVED REMISSION Qualifiers: Multiple myeloma remission status: not in remission Qualified Code(s): C90.00 - Multiple myeloma not having achieved remission (9) Paroxysmal A-fib Code(s): I48.0 - PAROXYSMAL ATRIAL FIBRILLATION
[2018-07-03] MEDS ORDERED: SODIUM CHLORIDE 1,000 ML IV SCH ×2 (02:30→17:54)
[2018-07-03] MEDS: THIAMINE HCL 200 MG/2 ML VIAL IVPB SCH ×3 (02:39→22:43)
--- NOTE | 2018-07-03 02:54 | HP ---
CHIEF COMPLAINT: Fever and productive cough x1 week PCP: Dr. Lopez HISTORY OF PRESENT ILLNESS: 78M w/ pmhx of multiple myeloma, hypothyroidism, DM, HTN, paroxysmal atrial fib (on Eliquis), GERD, R eye blindness, partial CS compression was sent from [facility] due to a fever of 101.7 and productive cough of 1 week. Per his daughter, pt's cough worsened on Friday and has been lethargic since then. Of note, pt was recently bed bound less than a month ago. Prior to 1 month ago, he was able to walk on his own and eat regular food. Throughout the past month, pt had started to functionally decompensate. Denies chest pain, headache/dizziness , nausea/vomiting, abdominal pain, leg swelling, constipation/diarrhea, urinary/ bowel symptoms, blood in urine/stool. ER course was notable for: (1) T 101.7, Hgb 8.9, Hct 28.4, Na 146, BUN 36, Lac 2.2; CTAP showed b/l lower lobe and RUL infiltrates a/w bronchiectasis, trace b/l effusions (2) Zosyn 3.375gm, Vanc 1gm, NS 2L given (3) Adenosine 6g x2, Pt briefly reverted back to sinus, but returned back to SVT Recent Travel: Denies PAST MEDICAL HISTORY: As per HPI PAST SURGICAL HISTORY: Resection of R facial nerve ostomy bag placement Social History: Smoking: Denies Alcohol: Denies Drugs: Denies Family History: Denies Allergies No Known Drug Allergies Allergy (Verified 07/02/18 11:52) HOME MEDICATIONS: Home Medications Medication Instructions Recorded Apixaban [Eliquis -] 5 mg PO BID 10/07/17 Levothyroxine [Synthroid -] 50 mcg PO DAILY 10/07/17 Pantoprazole Sodium [Protonix -] 40 mg PO DAILY 10/07/17 Paroxetine HCl [Paxil -] 30 mg PO DAILY 10/07/17 Pregabalin [Lyrica -] 75 mg PO BID 10/07/17 Tamsulosin HCl [Flomax -] 0.4 mg PO DAILY 10/07/17 Valacyclovir HCl [Valtrex -] 500 mg PO BID 10/07/17 Magnesium Oxide [Mag-Ox -] 400 mg PO BID tablet 10/16/17 Oxycodone HCl/Acetaminophen 1 combo PO Q6H PRN tablet MDD 4 10/16/17 [Percocet 5-325 mg Tablet] Multivit-Min/FA/Lycopen/Lutein 1 tab PO DAILY 06/13/18 [Centrum Silver Tablet] Acetaminophen [Tylenol .Regular 650 mg PO Q6H PRN tablet 06/20/18 Strength -] Docusate Sodium [Colace -] 100 mg PO Q12H PRN capsule 06/20/18 FENTANYL 12mcg PATCH [DURAGESIC 1 patch TD Q72H #4 patch.td72 NS 06/20/18 12mcg PATCH -] MDD 1 Metoprolol Succinate [Toprol XL -] 50 mg PO DAILY tab.sr.24h 06/20/18 REVIEW OF SYSTEMS GEN: Denies headache, dizziness, n/v PULM: Admits to cough, non productive; admits to sob CV: Denies chest pain, palpitations GI: Denies abd pain, constipation MSK: Denies pedal edema PHYSICAL EXAMINATION Vital Signs - 24 hr 07/02/18 07/02/18 07/03/18 11:48 12:04 02:22 Temperature 98.1 F 101.2 F H Pulse Rate 86 160 H Respiratory 16 20 Rate Blood Pressure 90/57 L 73/51 L O2 Sat by Pulse 100 100 Oximetry (%) GENERAL: AAOx3. Mild respiratory distress. Uncomfortable. HEENT: AT/NC. R eye covered with patch, hazy cornea, tender to touch, clear dry fluid, unable to close eye. Unable to open L eye. Unable to assess extraocular muscles or pupillary reflex. Dry mucus membranes. R side facial droop noted. NECK: Supple, no LAD/JVD. R central line in place LUNGS: B/l congestion. Difficult to HEART: Normal S1, S2. No murmurs noted. ABDOMEN: Ostomy bag in place, mild erythema around site. L side distension around ostomy site. No abdominal tenderness. MUSCULOSKELETAL: No pedal edema. 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 2+ pedal pulses. NEUROLOGICAL: B/l sensation intact. Normal speech. PSYCHIATRIC: Cooperative. Good eye contact. Appropriate mood and affect. Laboratory Results - last 24 hr 07/02/18 07/02/18 07/02/18 14:50 14:50 15:22 WBC Cancelled Corrected WBC (auto) Cancelled RBC Cancelled Hgb Cancelled Hct Cancelled MCV Cancelled MCH Cancelled MCHC Cancelled RDW Cancelled Plt Count Cancelled MPV Cancelled Absolute Neuts (auto) Cancelled Neutrophils % Cancelled Neutrophils % (Manual) Lymphocytes % Cancelled Lymphocytes % (Manual) Monocytes % Cancelled Monocytes % (Manual) Eosinophils % Cancelled Eosinophils % (Manual) Basophils % Cancelled Nucleated RBC % Cancelled Hypochromia Platelet Estimate Cancelled Platelet Comment Cancelled Anisocytosis Microcytosis Macrocytosis Ovalocytes Acanthocytes (Spur) PT with INR 17.00 H INR 1.44 H PTT (Actin FS) 35.5 VBG pH POC VBG pCO2 POC VBG pO2 Mixed VBG HCO3 Sodium 144 Potassium 4.1 Chloride 109 H Carbon Dioxide 30 Anion Gap 5 L BUN 34 H Creatinine 0.6 Creat Clearance w eGFR > 60 Random Glucose 99 Lactic Acid Calcium 8.3 L Phosphorus Magnesium Total Bilirubin 0.8 AST 32 ALT 37 Alkaline Phosphatase 109 Total Protein 5.2 L Albumin 1.6 L TSH Free T4 Urine Color Urine Appearance Urine pH Ur Specific [place]den Urine Protein Urine Glucose (UA) Urine Ketones Urine Blood Urine Nitrite Urine Bilirubin Urine Urobilinogen Ur Leukocyte Esterase 07/02/18 07/02/18 07/02/18 15:32 15:32 15:55 WBC 7.5 Corrected WBC (auto) RBC 2.81 L Hgb 8.9 L Hct 28.4 L MCV 101.0 H MCH 31.7 MCHC 31.4 L RDW 19.7 H Plt Count 253 MPV 9.8 D Absolute Neuts (auto) 6.7 Neutrophils % 88.6 H Neutrophils % (Manual) 86.0 H Lymphocytes % 3.4 L D Lymphocytes % (Manual) 9.0 D Monocytes % 5.5 Monocytes % (Manual) 3 L Eosinophils % 2.4 D Eosinophils % (Manual) 2.0 D Basophils % 0.1 Nucleated RBC % 0 Hypochromia 1+ Platelet Estimate Adequate Platelet Comment No clumping noted Anisocytosis 2+ Microcytosis 1+ Macrocytosis 2+ Ovalocytes 1+ Acanthocytes (Spur) 1+ PT with INR INR PTT (Actin FS) VBG pH 7.41 POC VBG pCO2 51.0 POC VBG pO2 25.1 L Mixed VBG HCO3 31.4 H Sodium 146 H Potassium 4.2 Chloride 107 Carbon Dioxide 30 Anion Gap 9 BUN 36 H Creatinine 0.8 Creat Clearance w eGFR > 60 Random Glucose 87 Lactic Acid Calcium 8.2 L Phosphorus 3.9 Magnesium 2.3 Total Bilirubin 0.8 AST 31 ALT 35 Alkaline Phosphatase 108 Total Protein 5.2 L Albumin 1.6 L TSH 1.33 D Free T4 1.16 Urine Color Urine Appearance Urine pH Ur Specific Ogden Urine Protein Urine Glucose (UA) Urine Ketones Urine Blood Urine Nitrite Urine Bilirubin Urine Urobilinogen Ur Leukocyte Esterase 07/02/18 07/02/18 07/02/18 18:29 23:08 23:08 WBC Corrected WBC (auto) RBC Hgb Hct MCV MCH MCHC RDW Plt Count MPV Absolute Neuts (auto) Neutrophils % Neutrophils % (Manual) Lymphocytes % Lymphocytes % (Manual) Monocytes % Monocytes % (Manual) Eosinophils % Eosinophils % (Manual) Basophils % Nucleated RBC % Hypochromia Platelet Estimate Platelet Comment Anisocytosis Microcytosis Macrocytosis Ovalocytes Acanthocytes (Spur) PT with INR INR PTT (Actin FS) VBG pH POC VBG pCO2 POC VBG pO2 Mixed VBG HCO3 Sodium Potassium Chloride Carbon Dioxide Anion Gap BUN Creatinine Creat Clearance w eGFR Random Glucose Lactic Acid 2.2 H* 1.6 Calcium Phosphorus Magnesium Total Bilirubin AST ALT Alkaline Phosphatase Total Protein Albumin TSH Free T4 Urine Color Lana Urine Appearance Clear Urine pH 5.0 Ur Specific Ogden 1.027 Urine Protein Negative Urine Glucose (UA) Negative Urine Ketones Negative Urine Blood Negative Urine Nitrite Negative Urine Bilirubin Negative Urine Urobilinogen Negative Ur Leukocyte Esterase Negative ASSESSMENT/PLAN: 78M w/ pmhx of multiple myeloma, hypothyroidism, DM, HTN, paroxysmal atrial fib (on Eliquis), GERD, R eye blindness, partial CS compression was sent from [facility] due to a fever of 101.7 and productive cough of 1 week admitted for severe sepsis 2/2 HCAP. #Severe sepsis 2/2 HCAP vs. vs intra-abdominal infection -admit to ICU -Vancomycin 1 gm IVPB QD -Zosyn 3.375 gm IVPB -Doxycycline 100 mg PO BID -Sputum culture/blood cultures ordered -Respiratory virus PCR panel ordered -Urine Legionella Ag ordered -Surgery/ID/GI consult ordered -repeat lactate -NS @ 150 #SVT; Adenosine 6 given x2, but no improvement. -Amiodarone 150 mg IVP; Per ICU rec, will not start Amiodarone drip due to side effects -Cardio consult ordered -Cont to monitor on tele to establish rate control #Abdominal wall distension; CTAP showed subQ air in LLQ of colostomy; -surgery consult ordered for possible need for surgery -NPO #A. Fib Hold home meds for now, may resume tomorrow depending pt's HD status #Hypothyroidism Resume home med: -Synthroid 50 mcg PO QD #Hypomagnesemia Resume home med: -Mag Ox 400 mg PO BID #BPH Hold home med #GI Ppx Resume home med: -Protonix 40 mg PO QD #DVT Ppx -hold all ACs for now #FEN -NS @ 150 -recheck lytes in AM -NPO dispo -Pt comes from [facility] -Full Code; Spoke to pt's daughter who HCP, has clearly expressed that she wants pt full code Visit type - Emergency Visit Emergency Visit: Yes ED Registration Date: 07/03/18 Care time: The patient presented to the Emergency Department on the above date and was hospitalized for further evaluation of their emergent condition. - New Patient This patient is new to me today: Yes Date on this admission: 07/03/18 - Critical Care Critical Care patient: No
--- NOTE | 2018-07-03 03:36 | PN ---
Teaching Attending Note Name of Resident: Michelle Bonilla ATTENDING PHYSICIAN STATEMENT I saw and evaluated the patient. Chart, data, imaging reviewed. I reviewed the resident's note and discussed the case with the resident. I agree with the resident's findings and plan as documented. 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 Imaging of chest showed b/l infiltrative changes in lung parenchyma. Patient was found to be borderline hypotensive with severe tachycardia which appeared to be SVT. He was given adenosine 6mg x2 with resultant break of rhythm to sinus rhythm. Subsequently given amiodarone. Central line placed for vascular access OBJECTIVE: Last Vital Signs Temp Pulse Resp BP Pulse Ox 101.2 F H 160 H 20 73/51 L 92 L 07/03/18 02:22 07/03/18 02:22 07/03/18 02:22 07/03/18 02:22 07/03/18 01:30 General -appears uncomfortable, mild resp distress, slowed mentation HEENT- right eye patch, dry oral mucosa Neck supple, right sided CVP cv -s1+s2+ tachycardia, regular chest- b/l air entry sounds, ronchi appreciated b/l abdomen- left sided colostomy, ertythema around stoma site, tender to tough, BS + ext - no pedal edema Abnormal Lab Results 07/02/18 07/02/18 07/02/18 14:50 15:22 15:32 RBC Hgb Hct MCV MCHC RDW Neutrophils % Neutrophils % (Manual) Lymphocytes % Monocytes % (Manual) PT with INR 17.00 H INR 1.44 H POC VBG pO2 Mixed VBG HCO3 Sodium 146 H Chloride 109 H Anion Gap 5 L BUN 34 H 36 H Lactic Acid Calcium 8.3 L 8.2 L Total Protein 5.2 L 5.2 L Albumin 1.6 L 1.6 L 07/02/18 07/02/18 07/02/18 15:32 15:55 18:29 RBC 2.81 L Hgb 8.9 L Hct 28.4 L MCV 101.0 H MCHC 31.4 L RDW 19.7 H Neutrophils % 88.6 H Neutrophils % (Manual) 86.0 H Lymphocytes % 3.4 L D Monocytes % (Manual) 3 L PT with INR INR POC VBG pO2 25.1 L Mixed VBG HCO3 31.4 H Sodium Chloride Anion Gap BUN Lactic Acid 2.2 H* Calcium Total Protein Albumin CT of chest and abdomen/pelvis reviewed, air around stoma site seen, no intraperitoneal air reported ASSESSMENT AND PLAN: 78yo man, with severe sepsis likely secondary to HCAP vs abdominal wall infection -admit to ICU -zosyn -vancomycin -doxycycline 100mg po bid -sputum culture -blood cultures x2 -IV fluid hydration -follow BP closely -follow lactic acid -GI evaluation -Dr. Treviño #cardiac arryhtmia-appears to be SVT, s/p adenosine x2, amiodarone, rate better controlled -cardiology evaluation -avoid bblocker/CCBs due to hypotension -consider starting digoxin dvt ppx - heparin sc
[2018-07-03] MEDS ORDERED: AMIODARONE IN DEXTROSE,ISO-OSM 360 MG/200 ML BAG ONE (03:55)
--- NOTE | 2018-07-03 04:22 | PN ---
Repeat PE for Septic Shock - Vital Signs Vital Signs: Vital Signs Temperature 07/03/18 02:22 Pulse Rate 88 07/03/18 02:22 Respiratory Rate 14 07/03/18 02:22 Blood Pressure 95/60 07/03/18 02:22 O2 Sat by Pulse Oximetry (%) 98 07/03/18 01:30 07/03/18 04:21 I have reviewed the most recent vital signs: Yes - PE CV for Spetic Shock: Regular Rhythm, Regular Rate, S1, S2 Lungs: Lungs Clear, Normal Breath Sounds Vascular: Left Radial: 2+, Right Radial: 2+ Capillary Refill: <3 seconds Skin exam: Warm (requires furhter IVF resuscitation CVP 6 urine still dark ), Dry
[2018-07-03 06:05] LABS: BASO % 0.1 % (0-2.0); EOS % 0.8 % (0-4.5); HEMOGLOBIN 6.2 GM/dL (11.7-16.9); MCH 30.9 pg (25.7-33.7); MEAN CELL VOLUME 103.2 fl (80-96); MEAN PLT VOLUME 9.7 fl (7.5-11.1); MONO % 7.4 % (3.8-10.2); NEUT % 89.7 % (42.8-82.8); PLATELET COUNT 173 K/MM3 (134-434); RDW 19.6 % (11.9-15.9)
[2018-07-03 06:23] LABS: HEMATOCRIT 20.6 % (35.4-49)
[2018-07-03] MEDS: ASCORBIC ACID 500 MG TABLET (FP) PO SCH ×2 (06:54→12:14)
[2018-07-03] MEDS ORDERED: LEVOTHYROXINE NA 50 MCG TABLET (FP) PO SCH (07:00)
[2018-07-03 07:04] LABS: ALBUMIN 1.2 g/dl (3.4-5.0); ALK PHOS 79 U/L (45-117); ANION GAP 7 MMOL/L (8-16); BILIRUBIN,TOTAL 0.6 mg/dL (0.2-1); BLOOD UREA NITROGEN 33 mg/dL (7-18); CALCIUM 7.1 mg/dL (8.5-10.1); CHLORIDE 115 mmol/L (98-107); CO2 26 mmol/L (21-32); CREATININE 0.5 mg/dL (0.55-1.3); GLUCOSE,RANDOM 83 mg/dL (74-106); PHOSPHOROUS 3.4 mg/dL (2.5-4.9); POTASSIUM 3.7 mmol/L (3.5-5.1); SGOT/AST 20 U/L (15-37); SGPT/ALT 25 U/L (13-61); SODIUM 148 mmol/L (136-145); TOT PROT 4.1 g/dl (6.4-8.2)
[2018-07-03] MEDS ORDERED: PIPERACILLIN/TAZOB 3.375 GM 3.375 GM in DEXTROSE 5%-WATER - 50 ML IVPB ONE (07:32)
[2018-07-03 07:57] LABS: BASO % 0.1 % (0-2.0); EOS % 0.8 % (0-4.5); HEMATOCRIT 20.3 % (35.4-49); LYMPH % 1.9 % (8-40); MCH 30.9 pg (25.7-33.7); MCHC 30.2 g/dl (32.0-35.9); MEAN CELL VOLUME 102.4 fl (80-96); MEAN PLT VOLUME 9.5 fl (7.5-11.1); MONO % 7.8 % (3.8-10.2); NEUT % 89.4 % (42.8-82.8); PLATELET COUNT 165 K/MM3 (134-434); RBC 1.98 M/mm3 (4.00-5.60); RDW 19.1 % (11.9-15.9); WHITE BLOOD COUNT 6.8 K/mm3 (4.0-10.0)
[2018-07-03 08:09] LABS: HEMOGLOBIN 6.1 GM/dL (11.7-16.9)
[2018-07-03] MEDS ORDERED: PT OWN MED DRAWER 7, Y5N ONE ×2 (09:05→17:07)
--- NOTE | 2018-07-03 09:19 | EKG ---
Test Reason : Blood Pressure : / mmHG Vent. Rate : 165 BPM Atrial Rate : 113 BPM P-R Int : 000 ms QRS Dur : 082 ms QT Int : 298 ms P-R-T Axes : 000 030 033 degrees QTc Int : 493 ms SUPRAVENTRICULAR TACHYCARDIA NONSPECIFIC ST ABNORMALITY ABNORMAL ECG Confirmed by EDILMA ALICEA MD ([id number]) on 07/03/2018 9:19:16 AM Referred By: Confirmed By:EDILMA ALICEA MD
--- NOTE | 2018-07-03 09:20 | EKG ---
Test Reason : Blood Pressure : / mmHG Vent. Rate : 162 BPM Atrial Rate : 085 BPM P-R Int : 000 ms QRS Dur : 082 ms QT Int : 290 ms P-R-T Axes : 000 027 010 degrees QTc Int : 476 ms SUPRAVENTRICULAR TACHYCARDIA NONSPECIFIC ST ABNORMALITY Confirmed by EDILMA ALICEA MD ([id number]) on 07/03/2018 9:20:19 AM Referred By: Confirmed By:EDILMA ALICEA MD
--- NOTE | 2018-07-03 09:20 | EKG ---
Test Reason : Blood Pressure : / mmHG Vent. Rate : 118 BPM Atrial Rate : 118 BPM P-R Int : 176 ms QRS Dur : 080 ms QT Int : 336 ms P-R-T Axes : 057 030 066 degrees QTc Int : 470 ms SINUS TACHYCARDIA NONSPECIFIC ST ABNORMALITY Confirmed by EDILMA ALICEA MD ([id number]) on 07/03/2018 9:19:48 AM Referred By: Confirmed By:EDILMA ALICEA MD
--- NOTE | 2018-07-03 09:23 | EKG ---
Test Reason : Blood Pressure : / mmHG Vent. Rate : 118 BPM Atrial Rate : 119 BPM P-R Int : 162 ms QRS Dur : 076 ms QT Int : 322 ms P-R-T Axes : 037 025 068 degrees QTc Int : 451 ms POOR DATA QUALITY, INTERPRETATION MAY BE ADVERSELY AFFECTED SINUS TACHYCARDIA WITH PREMATURE ATRIAL COMPLEXES WHEN COMPARED WITH ECG OF 02-JUL-2018 18:56, PREMATURE ATRIAL COMPLEXES ARE NOW PRESENT Confirmed by NIXON HOLLEY, EDILMA ([id number]) on 07/03/2018 9:23:09 AM Referred By: Confirmed By:EDILMA ALICEA MD
--- NOTE | 2018-07-03 09:27 | EKG ---
Test Reason : Blood Pressure : / mmHG Vent. Rate : 161 BPM Atrial Rate : 159 BPM P-R Int : 000 ms QRS Dur : 080 ms QT Int : 278 ms P-R-T Axes : 000 027 -03 degrees QTc Int : 454 ms POOR DATA QUALITY, INTERPRETATION MAY BE ADVERSELY AFFECTED SUPRAVENTRICULAR TACHYCARDIA NONSPECIFIC ST ABNORMALITY ABNORMAL ECG Confirmed by EDILMA ALICEA MD ([id number]) on 07/03/2018 9:27:18 AM Referred By: Confirmed By:EDILMA ALICEA MD
[2018-07-03 09:54] LABS: ANISOCYTOSIS 1+; MACROCYTOSIS 1+; OVALOCYTE 1+; PLATELET ESTIMATE NORMAL
[2018-07-03] MEDS ORDERED: valACYclovir HCL 500 MG TABLET (FP) PO SCH (10:00)
[2018-07-03] MEDS ORDERED: MUPIROCIN 2% TOPICAL OINTMENT FOR DECOLONIZATION NS SCH ×2 (10:00→22:00)
[2018-07-03] MEDS ORDERED: PANTOPRAZOLE SODIUM 40 MG VIAL IVPUSH SCH ×2 (10:00→15:00)
[2018-07-03] MEDS ORDERED: PARoxetine HCL 10 MG TABLET (FP) PO SCH (10:00)
[2018-07-03] MEDS ORDERED: LEVOTHYROXINE SODIUM 100 MCG VIAL IVPUSH SCH ×2 (10:00→15:00)
[2018-07-03] MEDS ORDERED: MAGNESIUM OXIDE 400 MG TABLET (FP) PO SCH (10:00)
[2018-07-03] MEDS ORDERED: HEPARIN - 25,000 UNIT in SODIUM CHLORIDE 495 ML IV SCH (10:00)
[2018-07-03] MEDS ORDERED: PANTOPRAZOLE 40 MG TABLET (FP) PO SCH (10:00)
[2018-07-03] MEDS ORDERED: PREGABALIN 75 MG CAPSULE PO SCH (10:00)
--- NOTE | 2018-07-03 10:00 | HP ---
DATE OF ADMISSION: 07/03/2018 This is a 78-year-old male known to have multiple myeloma, hypothyroidism, diabetes, hypertension, paroxysmal atrial fibrillation. Last time he was admitted here and then was transferred to [facility]. Patient was not doing well for the last 2 or 3 days, started spiking fever, so patient was sent here to the ER. In the ER they diagnosed that patient was in septic shock, got admitted into ICU. His temperature was 101 at that time. PHYSICAL EXAMINATION: Vital Signs: BP 100/70, pulse 68, temperature 99.6. General: Patient is awake, opens the left eye, is oriented and talking. HEENT: Unremarkable. Neck: Supple. No JVD. Lungs: Scattered rales. Heart: S1, S2 normal. No S3, S4. Abdomen: Soft. Legs: No edema. Has multiple hematomas, various parts of the body. DIAGNOSTIC DATA: EKG: Sinus tachycardia. Chest x-ray: Bilateral bibasilar infiltrates. LABORATORY: WBC 6.8, hemoglobin 6.1, hematocrit 20. Chemistry: Sodium 148, potassium 3.7, chloride 115, creatinine 0.5, BUN 33, lactic acid 2.2. Albumin is 1.2. IMPRESSION: Septic shock, bibasilar pneumonia, multiple myeloma, anemia. PLAN: As per the ICU attending, will discuss with Dr. George. Nikolai [id number]
--- NOTE | 2018-07-03 10:30 | CON.CARD ---
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 He presented with cough, fever 101.7, lethargy, shortness of breath, progressive debilitation as well as right lower abdominal pain. Imaging of chest showed b/l infiltrative changes in lung parenchyma. Patient was found to be borderline hypotensive with recurrent PSVT. He was given adenosine 6mg x2 with resultant break of rhythm to sinus rhythm. Subsequently given amiodarone. Central line placed for vascular access abd/pelvic CT shows LLQ subq air at colostomy site, planned for revision. 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: Yes: Syncope, Other (Residual right lower neuron facial palsy) Cardio/Vascular: Yes: AFIB, CAD, HTN, Hyperlipdemia, Other (PSVT) Pulmonary: No: Bronchitis (no chronic sputum production says current sputum production isnew) Renal/: Yes: BPH, Neurogenic Bladder, UTI Infectious Disease: Yes: Other (fever possible aspiration pneumonia) ENT: Yes: Other (legally blind right eye) Dermatology: Yes: Melanoma - Past Surgical History Past Surgical History: Yes: Colostomy (For sigmoid colon resection after perforation) - Alcohol/Substance Use Hx Alcohol Use: No - Smoking History Smoking history: Never smoked Have you smoked in the past 12 months: No Aproximately how many cigarettes per day: 0 - Social History ADL: Support Services History of Recent Travel: No Home Medications - Allergies Allergies/Adverse Reactions: Allergies Allergy/AdvReac Type Severity Reaction Status Date / Time No Known Drug Allergies Allergy Verified 07/02/18 11:52 - Home Medications Home Medications: Ambulatory Orders Apixaban [Eliquis -] 5 mg PO BID 10/07/17 Levothyroxine [Synthroid -] 50 mcg PO DAILY 10/07/17 Pantoprazole Sodium [Protonix -] 40 mg PO DAILY 10/07/17 Paroxetine HCl [Paxil -] 30 mg PO DAILY 10/07/17 Pregabalin [Lyrica -] 75 mg PO BID 10/07/17 Tamsulosin HCl [Flomax -] 0.4 mg PO DAILY 10/07/17 Valacyclovir HCl [Valtrex -] 500 mg PO BID 10/07/17 Magnesium Oxide [Mag-Ox -] 400 mg PO BID tablet 10/16/17 Oxycodone HCl/Acetaminophen [Percocet 5-325 mg Tablet] 1 combo PO Q6H PRN tablet MDD 4 10/16/17 Multivit-Min/FA/Lycopen/Lutein [Centrum Silver Tablet] 1 tab PO DAILY 06/13/18 Acetaminophen [Tylenol .Regular Strength -] 650 mg PO Q6H PRN tablet 06/20/18 Docusate Sodium [Colace -] 100 mg PO Q12H PRN capsule 06/20/18 FENTANYL 12mcg PATCH [DURAGESIC 12mcg PATCH -] 1 patch TD Q72H #4 patch.td72 NS MDD 1 06/20/18 Metoprolol Succinate [Toprol XL -] 50 mg PO DAILY tab.sr.24h 06/20/18 Review of Systems - Review of Systems Constitutional: reports: Fever Cardiovascular: reports: Shortness of Breath Respiratory: reports: Cough Gastrointestinal: reports: Abdominal Pain Vital Signs: Vital Signs Temperature 97.8 F 07/03/18 08:00 Pulse Rate 69 07/03/18 10:00 Respiratory Rate 18 07/03/18 10:00 Blood Pressure 108/68 07/03/18 10:00 O2 Sat by Pulse Oximetry (%) 100 07/03/18 09:00 Constitutional: Yes: No Distress, Calm, Thin Neck: Yes: Supple Respiratory: Yes: Regular, Diminished, On Nasal O2 Gastrointestinal: Yes: Soft, Hypoactive Bowel Sounds, Tenderness Cardiovascular: Yes: Regular Rate and Rhythm JVD: No Carotid Bruit: No Heart Sounds: Yes: S1, S2 Murmur: Yes: Systolic Murmur, Grade 1 Edema: No - Other Data Labs, Other Data: CBC, BMP 07/03/18 07:37 07/03/18 05:30 INR, PTT INR 1.44 (0.83-1.09) H 07/02/18 15:22 Troponin, BNP 07/02/18 14:50 Troponin I < 0.02 Troponin, BNP 07/02/18 14:50 Troponin I < 0.02 SVT 161->SR Ejection Fraction %: LVEF > or = 40 % Imaging - Results Cat Scan: Report Reviewed (Bilateral lower lobe infiltrates with bronchiectasis , LLQ subq air) Assessment/Plan 1. Sepsis, GI and aspiration PNA source, r/o perforation at colostomy site 2. Paroxysmal atrial fibrillation currently in sinus rhythm [id number] score of 3 on DOAC's 3. PSVT currently in sinus rhythm post Adenosine 4. 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 Diastolic LV dysfunction with class 0 NYHA classification LV failure 6. HTN 7. Hypothyroidism 8. History of multiple myeloma not in remission with multiple rib mets, compression fractures. 9. 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 Anemia undergoing pRBC transfusion 11. History of diverticular perforation with purulent peritonitis post exploratory laparotomy and sigmoid resection/left colostomy/abdominal washout with subcutaneous air at site r/o perforation 12. 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 r eye blindness PLAN: 1. IVF resuscitation and abx as you are, planned for OR colostomy revision 2. IV Cardizem or Lopressor boluses as needed pending oral intake 2. Hold Eliquis 5 bid, placed on heparin gtt pre-procedure, await surgical input 3. Hold Diovan 160 qd and Norvasc 5 qd for hemodynamics 4. Revlimid held per heme/onc to resume when clinical status improves. 5. Analgesia as needed, DVT and GI prophylaxis as needed 6. Thank you for consultative opportunity
[2018-07-03 10:35] LABS: ANISOCYTOSIS 1+; MACROCYTOSIS 1+; PLATELET ESTIMATE NORMAL; TEAR DROP CELLS 1+
[2018-07-03 10:37] LABS: TOXIC GRANULATION 1+
[2018-07-03] MEDS ORDERED: dilTIAZem HCL 50 MG/10 ML - 10 ML VIAL IVPB ONE (11:30)
[2018-07-03] MEDS ORDERED: ETOMIDATE 20 MG/10 ML AMPUL IVPUSH ONE (11:43)
[2018-07-03] MEDS ORDERED: PHENYLEPHRINE HCL 10 MG/1 ML SINGLE DOSE VIAL ONE (11:43)
[2018-07-03] MEDS ORDERED: ROCURONIUM BROMIDE 50 MG/5 ML VIAL ONE ×2 (11:43→12:53)
[2018-07-03] MEDS ORDERED: MIDAZOLAM HCL 2 MG/2 ML SINGLE DOSE VIAL ONE ×3 (11:43)
--- NOTE | 2018-07-03 11:53 | CON.ID ---
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 Patient came to the hospital because of weakness fever sob,lethargy and abd pain patient was also found to be having psvt--given adenosine and went into sinus . Central line placed for vascular access abd/pelvic CT shows LLQ subq air at colostomy site, planned for revision. 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, Other (Residual right lower neuron facial palsy) Cardio/Vascular: Yes: AFIB, CAD, HTN, Hyperlipdemia, Other (PSVT) Pulmonary: No: Bronchitis (no chronic sputum production says current sputum production isnew) Renal/: Yes: BPH, Neurogenic Bladder, UTI Infectious Disease: Yes: Other (fever possible aspiration pneumonia) ENT: Yes: Other (legally blind right eye) Dermatology: Yes: Melanoma - Past Surgical History Past Surgical History: Yes: Colostomy (For sigmoid colon resection after perforation) - Alcohol/Substance Use Hx Alcohol Use: No - Smoking History Smoking history: Never smoked Have you smoked in the past 12 months: No Aproximately how many cigarettes per day: 0 - Social History ADL: Support Services History of Recent Travel: No Home Medications - Allergies Allergies/Adverse Reactions: Allergies Allergy/AdvReac Type Severity Reaction Status Date / Time No Known Drug Allergies Allergy Verified 07/02/18 11:52 - Home Medications Home Medications: Ambulatory Orders Apixaban [Eliquis -] 5 mg PO BID 10/07/17 Levothyroxine [Synthroid -] 50 mcg PO DAILY 10/07/17 Pantoprazole Sodium [Protonix -] 40 mg PO DAILY 10/07/17 Paroxetine HCl [Paxil -] 30 mg PO DAILY 10/07/17 Pregabalin [Lyrica -] 75 mg PO BID 10/07/17 Tamsulosin HCl [Flomax -] 0.4 mg PO DAILY 10/07/17 Valacyclovir HCl [Valtrex -] 500 mg PO BID 10/07/17 Magnesium Oxide [Mag-Ox -] 400 mg PO BID tablet 10/16/17 Oxycodone HCl/Acetaminophen [Percocet 5-325 mg Tablet] 1 combo PO Q6H PRN tablet MDD 4 10/16/17 Multivit-Min/FA/Lycopen/Lutein [Centrum Silver Tablet] 1 tab PO DAILY 06/13/18 Acetaminophen [Tylenol .Regular Strength -] 650 mg PO Q6H PRN tablet 06/20/18 Docusate Sodium [Colace -] 100 mg PO Q12H PRN capsule 06/20/18 FENTANYL 12mcg PATCH [DURAGESIC 12mcg PATCH -] 1 patch TD Q72H #4 patch.td72 NS MDD 1 06/20/18 Metoprolol Succinate [Toprol XL -] 50 mg PO DAILY tab.sr.24h 06/20/18 Review of Systems - Review of Systems Constitutional: reports: Fever Eyes: reports: No Symptoms HENT: reports: No Symptoms Neck: reports: No Symptoms Cardiovascular: reports: Shortness of Breath Respiratory: reports: SOB Gastrointestinal: reports: Abdominal Pain Genitourinary: reports: No Symptoms Musculoskeletal: reports: No Symptoms Integumentary: reports: No Symptoms Neurological: reports: No Symptoms Endocrine: reports: No Symptoms Hematology/Lymphatic: reports: No Symptoms Psychiatric: reports: No Symptoms Physical Exam Vital Signs: Vital Signs Temperature 97.8 F 07/03/18 08:00 Pulse Rate 69 07/03/18 10:00 Respiratory Rate 18 07/03/18 10:00 Blood Pressure 108/68 07/03/18 10:00 O2 Sat by Pulse Oximetry (%) 100 07/03/18 09:00 Constitutional: Yes: Calm, Moderate Distress Eyes: Yes: Conjunctiva Clear Neck: Yes: Supple Cardiovascular: Yes: Regular Rate and Rhythm Respiratory: Yes: Regular, Poor Air Entry Gastrointestinal: Yes: Other (absent bowel sounds,colostomy noted) Musculoskeletal: Yes: Other Extremities: Yes: Other Edema: LLE: 1+, RLE: 1+ Neurological: Yes: Alert, Oriented Psychiatric: Yes: Alert Labs: CBC, BMP 07/03/18 07:37 07/03/18 05:30 Imaging - Results Chest X-ray: Report Reviewed, Image Reviewed Cat Scan: Report Reviewed, Image Reviewed Assessment/Plan 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
--- NOTE | 2018-07-03 12:09 | CONSULT ---
Consult Consult Specialty:: Surgery Reason for Consultation:: r/o bowel perforation - History of Present Illness History of Present Illness: 78M w/ pmhx of multiple myeloma, hypothyroidism, DM, HTN, paroxysmal atrial fib (on Eliquis), GERD, R eye blindness, partial CS compression was sent from [facility] due to a fever of 101.7 and productive cough of 1 week. Per his daughter, pt's cough worsened on Friday and has been lethargic since then. Of note, pt was recently bed bound less than a month ago. Prior to 1 month ago, he was able to walk on his own and eat regular food. Throughout the past month, pt had started to functionally decompensate. Denies chest pain, headache/dizziness , nausea/vomiting, abdominal pain, leg swelling, constipation/diarrhea, urinary/ bowel symptoms, blood in urine/stool. CT A/P showed massive subcutaneous air around the colostomy site suspicious for bowel perforation. 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, Other (Residual right lower neuron facial palsy) Cardio/Vascular: Yes: AFIB, CAD, HTN, Hyperlipdemia, Other (PSVT) Pulmonary: No: Bronchitis (no chronic sputum production says current sputum production isnew) Renal/: Yes: BPH, Neurogenic Bladder, UTI Infectious Disease: Yes: Other (fever possible aspiration pneumonia) ENT: Yes: Other (legally blind right eye) Dermatology: Yes: Melanoma - Past Surgical History Past Surgical History: Yes: Colostomy (For sigmoid colon resection after perforation) - Alcohol/Substance Use Hx Alcohol Use: No - Smoking History Smoking history: Never smoked Have you smoked in the past 12 months: No Aproximately how many cigarettes per day: 0 - Social History ADL: Support Services History of Recent Travel: No Home Medications - Allergies Allergies/Adverse Reactions: Allergies Allergy/AdvReac Type Severity Reaction Status Date / Time No Known Drug Allergies Allergy Verified 07/02/18 11:52 - Home Medications Home Medications: Ambulatory Orders Apixaban [Eliquis -] 5 mg PO BID 10/07/17 Levothyroxine [Synthroid -] 50 mcg PO DAILY 10/07/17 Pantoprazole Sodium [Protonix -] 40 mg PO DAILY 10/07/17 Paroxetine HCl [Paxil -] 30 mg PO DAILY 10/07/17 Pregabalin [Lyrica -] 75 mg PO BID 10/07/17 Tamsulosin HCl [Flomax -] 0.4 mg PO DAILY 10/07/17 Valacyclovir HCl [Valtrex -] 500 mg PO BID 10/07/17 Magnesium Oxide [Mag-Ox -] 400 mg PO BID tablet 10/16/17 Oxycodone HCl/Acetaminophen [Percocet 5-325 mg Tablet] 1 combo PO Q6H PRN tablet MDD 4 10/16/17 Multivit-Min/FA/Lycopen/Lutein [Centrum Silver Tablet] 1 tab PO DAILY 06/13/18 Acetaminophen [Tylenol .Regular Strength -] 650 mg PO Q6H PRN tablet 06/20/18 Docusate Sodium [Colace -] 100 mg PO Q12H PRN capsule 06/20/18 FENTANYL 12mcg PATCH [DURAGESIC 12mcg PATCH -] 1 patch TD Q72H #4 patch.td72 NS MDD 1 06/20/18 Metoprolol Succinate [Toprol XL -] 50 mg PO DAILY tab.sr.24h 06/20/18 Physical Exam Vital Signs: Vital Signs Temperature 97.8 F 07/03/18 08:00 Pulse Rate 69 07/03/18 10:00 Respiratory Rate 18 07/03/18 10:00 Blood Pressure 108/68 07/03/18 10:00 O2 Sat by Pulse Oximetry (%) 100 07/03/18 09:00 Labs: CBC, BMP 07/03/18 07:37 07/03/18 05:30 Imaging - Results Cat Scan: Report Reviewed, Image Reviewed (possible jerrica perforation) Assessment/Plan Possible bowel perforation at colostomy site, sepsis Exploratory laparotomy, possible bowel resection, possible ostomy
--- NOTE | 2018-07-03 12:18 | PN ---
Teaching Attending Note Name of Resident: Rio Jarrett ATTENDING PHYSICIAN STATEMENT I saw and evaluated the patient. I reviewed the resident's note and discussed the case with the resident. I agree with the resident's findings and plan as documented. SUBJECTIVE: Patient seen and examined in the ICU. Seen by surgery. For OR. CVP increased to 6 to 8. Getting 2 units of pRBCs. No pressors. HR better controlled. Intake & Output 06/30/18 07/01/18 07/02/18 07/03/18 23:59 23:59 23:59 23:59 Intake Total 1900 Output Total 250 300 Balance -250 1600 Weight 140 lb 181 lb 5 oz Last Vital Signs Temp Pulse Resp BP Pulse Ox 97.8 F 69 18 108/68 100 07/03/18 08:00 07/03/18 10:00 07/03/18 10:00 07/03/18 10:00 07/03/18 09:00 Active Medications Acetaminophen (Tylenol -) 325 mg PO Q6H PRN PRN Reason: PAIN LEVEL 6-10 Acetaminophen (Ofirmev Injection -) 1,000 mg IVPB Q6H PRN PRN Reason: FEVER Last Admin: 07/03/18 02:09 Dose: 1,000 mg Ascorbic Acid (Vitamin C -) 1,500 mg PO Q6HPO BERE Last Admin: 07/03/18 06:54 Dose: Not Given Chlorhexidine Gluconate (Hibiclens For Decolonization -) 1 applic TP HS BERE Hydrocortisone Sodium Succinate (Solu-Cortef -) 50 mg IVPB Q6H-IV BERE Last Admin: 07/03/18 09:48 Dose: 50 mg Vancomycin HCl (Vancomycin (Pre-Docked)) 1,000 mg in 250 mls @ 166.667 mls/hr IVPB ONCE ONE Stop: 07/03/18 18:29 Sodium Chloride (Normal Saline -) 1,000 mls @ 150 mls/hr IV ASDIR BERE Last Admin: 07/03/18 02:37 Dose: 150 mls/hr Clindamycin Phosphate (Cleocin 600 Mg Premix Ivpb -) 600 mg in 50 mls @ 100 mls /hr IVPB Q6H-IV BERE; Protocol Metronidazole (Flagyl 500mg Premixed Ivpb -) 500 mg in 100 mls @ 100 mls/hr IVPB Q8H-IV BERE Piperacillin Sod/Tazobactam (Sod 4.5 gm/ Dextrose) 100 mls @ 200 mls/hr IVPB Q8H-IV BERE; Protocol Levothyroxine Sodium (Synthroid -) 50 mcg PO DAILY@0700 [facility] Last Admin: 07/03/18 06:54 Dose: Not Given Magnesium Oxide (Mag-Ox -) 400 mg PO BID [facility] Last Admin: 07/03/18 09:49 Dose: 400 mg Mupirocin (Bactroban Ointment (For Decolonization) -) 1 applic NS BID [facility] Stop: 07/08/18 09:59 Last Admin: 07/03/18 10:26 Dose: 1 applic Oxycodone HCl (Roxicodone -) 5 mg PO Q6H PRN PRN Reason: PAIN LEVEL 6-10 Pantoprazole Sodium (Protonix -) 40 mg PO DAILY [facility] Last Admin: 07/03/18 09:49 Dose: 40 mg Paroxetine HCl (Paxil -) 30 mg PO DAILY [facility] Last Admin: 07/03/18 09:49 Dose: 30 mg Pregabalin (Lyrica -) 75 mg PO BID [facility] Last Admin: 07/03/18 09:49 Dose: 75 mg Thiamine HCl (Vitamin B1 Injection -) 200 mg IVPB BID [facility] Last Admin: 07/03/18 09:48 Dose: 200 mg Valacyclovir HCl (Valtrex -) 500 mg PO BID [facility] Last Admin: 07/03/18 09:49 Dose: 500 mg GENERAL: Awake and responsive HEAD: Normal with no signs of trauma. EYES: R eye patch. L eye PRRL, scler aanicteric EARS, NOSE, THROAT: dry mucous membranes. NECK: supple without JVD LUNGS: bibasilar ronchi, productive cough HEART: tachycardia, S1 and S2 ABDOMEN: Left colostomy, (+) crepitus extending from proximal colostomy to Left flank, Superficially tender, (+) BS MUSCULOSKELETAL: No CVA tenderness. UPPER EXTREMITIES: 2+ pulses, warm, well-perfused. No peripheral edema. LOWER EXTREMITIES: 2+ pulses, warm, well-perfused. No calf tenderness. no peripheral edema. NEUROLOGICAL: R facial asymmetry PSYCHIATRIC: Cooperative. responds to questions appropriately SKIN: Warm, dry, decreased turgor Laboratory Results - last 24 hr 07/02/18 07/02/18 07/02/18 14:50 14:50 15:22 WBC Cancelled Corrected WBC (auto) Cancelled RBC Cancelled Hgb Cancelled Hct Cancelled MCV Cancelled MCH Cancelled MCHC Cancelled RDW Cancelled Plt Count Cancelled MPV Cancelled Absolute Neuts (auto) Cancelled Neutrophils % Cancelled Neutrophils % (Manual) Band Neutrophils % Lymphocytes % Cancelled Lymphocytes % (Manual) Monocytes % Cancelled Monocytes % (Manual) Eosinophils % Cancelled Eosinophils % (Manual) Basophils % Cancelled Basophils % (Manual) Myelocytes % (Man) Promyelocytes % (Man) Blast Cells % (Manual) Nucleated RBC % Cancelled Metamyelocytes Hypochromia Toxic Granulation Platelet Estimate Cancelled Platelet Comment Cancelled Polychromasia Poikilocytosis Anisocytosis Microcytosis Macrocytosis Tear Drop Cells Ovalocytes Acanthocytes (Spur) Fragmented RBCs Schistocytes PT with INR 17.00 H INR 1.44 H PTT (Actin FS) 35.5 VBG pH POC VBG pCO2 POC VBG pO2 Mixed VBG HCO3 Sodium 144 Potassium 4.1 Chloride 109 H Carbon Dioxide 30 Anion Gap 5 L BUN 34 H Creatinine 0.6 Creat Clearance w eGFR > 60 Random Glucose 99 Lactic Acid Calcium 8.3 L Phosphorus Magnesium Total Bilirubin 0.8 AST 32 ALT 37 Alkaline Phosphatase 109 Troponin I < 0.02 Total Protein 5.2 L Albumin 1.6 L TSH Free T4 Urine Color Urine Appearance Urine pH Ur Specific Dafter Urine Protein Urine Glucose (UA) Urine Ketones Urine Blood Urine Nitrite Urine Bilirubin Urine Urobilinogen Ur Leukocyte Esterase Blood Type Antibody Screen Crossmatch 07/02/18 07/02/18 07/02/18 15:32 15:32 15:55 WBC 7.5 Corrected WBC (auto) RBC 2.81 L Hgb 8.9 L Hct 28.4 L MCV 101.0 H MCH 31.7 MCHC 31.4 L RDW 19.7 H Plt Count 253 MPV 9.8 D Absolute Neuts (auto) 6.7 Neutrophils % 88.6 H Neutrophils % (Manual) 86.0 H Band Neutrophils % Lymphocytes % 3.4 L D Lymphocytes % (Manual) 9.0 D Monocytes % 5.5 Monocytes % (Manual) 3 L Eosinophils % 2.4 D Eosinophils % (Manual) 2.0 D Basophils % 0.1 Basophils % (Manual) Myelocytes % (Man) Promyelocytes % (Man) Blast Cells % (Manual) Nucleated RBC % 0 Metamyelocytes Hypochromia 1+ Toxic Granulation Platelet Estimate Adequate Platelet Comment No clumping noted Polychromasia Poikilocytosis Anisocytosis 2+ Microcytosis 1+ Macrocytosis 2+ Tear Drop Cells Ovalocytes 1+ Acanthocytes (Spur) 1+ Fragmented RBCs Schistocytes PT with INR INR PTT (Actin FS) VBG pH 7.41 POC VBG pCO2 51.0 POC VBG pO2 25.1 L Mixed VBG HCO3 31.4 H Sodium 146 H Potassium 4.2 Chloride 107 Carbon Dioxide 30 Anion Gap 9 BUN 36 H Creatinine 0.8 Creat Clearance w eGFR > 60 Random Glucose 87 Lactic Acid Calcium 8.2 L Phosphorus 3.9 Magnesium 2.3 Total Bilirubin 0.8 AST 31 ALT 35 Alkaline Phosphatase 108 Troponin I Total Protein 5.2 L Albumin 1.6 L TSH 1.33 D Free T4 1.16 Urine Color Urine Appearance Urine pH Ur Specific Dafter Urine Protein Urine Glucose (UA) Urine Ketones Urine Blood Urine Nitrite Urine Bilirubin Urine Urobilinogen Ur Leukocyte Esterase Blood Type Antibody Screen Crossmatch 07/02/18 07/02/18 07/02/18 18:29 23:08 23:08 WBC Corrected WBC (auto) RBC Hgb Hct MCV MCH MCHC RDW Plt Count MPV Absolute Neuts (auto) Neutrophils % Neutrophils % (Manual) Band Neutrophils % Lymphocytes % Lymphocytes % (Manual) Monocytes % Monocytes % (Manual) Eosinophils % Eosinophils % (Manual) Basophils % Basophils % (Manual) Myelocytes % (Man) Promyelocytes % (Man) Blast Cells % (Manual) Nucleated RBC % Metamyelocytes Hypochromia Toxic Granulation Platelet Estimate Platelet Comment Polychromasia Poikilocytosis Anisocytosis Microcytosis Macrocytosis Tear Drop Cells Ovalocytes Acanthocytes (Spur) Fragmented RBCs Schistocytes PT with INR INR PTT (Actin FS) VBG pH POC VBG pCO2 POC VBG pO2 Mixed VBG HCO3 Sodium Potassium Chloride Carbon Dioxide Anion Gap BUN Creatinine Creat Clearance w eGFR Random Glucose Lactic Acid 2.2 H* 1.6 Calcium Phosphorus Magnesium Total Bilirubin AST ALT Alkaline Phosphatase Troponin I Total Protein Albumin TSH Free T4 Urine Color Lana Urine Appearance Clear Urine pH 5.0 Ur Specific Dafter 1.027 Urine Protein Negative Urine Glucose (UA) Negative Urine Ketones Negative Urine Blood Negative Urine Nitrite Negative Urine Bilirubin Negative Urine Urobilinogen Negative Ur Leukocyte Esterase Negative Blood Type Antibody Screen Crossmatch 07/03/18 07/03/18 07/03/18 05:30 05:30 07:37 WBC 7.0 Corrected WBC (auto) RBC 2.00 L Hgb 6.2 L* Hct 20.6 L D MCV 103.2 H MCH 30.9 MCHC 30.0 L RDW 19.6 H Plt Count 173 D MPV 9.7 Absolute Neuts (auto) 6.3 Neutrophils % 89.7 H Neutrophils % (Manual) 56.0 D Band Neutrophils % 30.0 Lymphocytes % 2.0 L D Lymphocytes % (Manual) 2.0 L D Monocytes % 7.4 Monocytes % (Manual) 10 D Eosinophils % 0.8 Eosinophils % (Manual) 1.0 Basophils % 0.1 Basophils % (Manual) 0.0 Myelocytes % (Man) 0 Promyelocytes % (Man) 0 Blast Cells % (Manual) 0 Nucleated RBC % 0 Metamyelocytes 1 D Hypochromia 0 Toxic Granulation Platelet Estimate Normal Platelet Comment Polychromasia 1+ Poikilocytosis 0 Anisocytosis 1+ Microcytosis Macrocytosis 1+ Tear Drop Cells Ovalocytes 1+ Acanthocytes (Spur) Fragmented RBCs 1+ Schistocytes PT with INR INR PTT (Actin FS) VBG pH POC VBG pCO2 POC VBG pO2 Mixed VBG HCO3 Sodium 148 H Potassium 3.7 Chloride 115 H Carbon Dioxide 26 Anion Gap 7 L BUN 33 H Creatinine 0.5 L Creat Clearance w eGFR > 60 Random Glucose 83 Lactic Acid Calcium 7.1 L Phosphorus 3.4 Magnesium 2.0 Total Bilirubin 0.6 AST 20 ALT 25 Alkaline Phosphatase 79 Troponin I Total Protein 4.1 L Albumin 1.2 L TSH Free T4 Urine Color Urine Appearance Urine pH Ur Specific Dafter Urine Protein Urine Glucose (UA) Urine Ketones Urine Blood Urine Nitrite Urine Bilirubin Urine Urobilinogen Ur Leukocyte Esterase Blood Type O POSITIVE Antibody Screen Negative Crossmatch See Detail 07/03/18 07:37 WBC 6.8 Corrected WBC (auto) RBC 1.98 L Hgb 6.1 L* Hct 20.3 L MCV 102.4 H MCH 30.9 MCHC 30.2 L RDW 19.1 H Plt Count 165 MPV 9.5 Absolute Neuts (auto) 6.1 Neutrophils % 89.4 H Neutrophils % (Manual) 89.8 H D Band Neutrophils % 4.1 Lymphocytes % 1.9 L Lymphocytes % (Manual) 1.0 L D Monocytes % 7.8 Monocytes % (Manual) 4 Eosinophils % 0.8 Eosinophils % (Manual) 0.0 D Basophils % 0.1 Basophils % (Manual) 0.0 Myelocytes % (Man) 0 Promyelocytes % (Man) 0 Blast Cells % (Manual) 0 Nucleated RBC % 0 Metamyelocytes 1 Hypochromia 0 Toxic Granulation 1+ Platelet Estimate Normal Platelet Comment Polychromasia 0 Poikilocytosis 1+ Anisocytosis 1+ Microcytosis Macrocytosis 1+ Tear Drop Cells 1+ Ovalocytes Acanthocytes (Spur) Fragmented RBCs Schistocytes 1+ PT with INR INR PTT (Actin FS) VBG pH POC VBG pCO2 POC VBG pO2 Mixed VBG HCO3 Sodium Potassium Chloride Carbon Dioxide Anion Gap BUN Creatinine Creat Clearance w eGFR Random Glucose Lactic Acid Calcium Phosphorus Magnesium Total Bilirubin AST ALT Alkaline Phosphatase Troponin I Total Protein Albumin TSH Free T4 Urine Color Urine Appearance Urine pH Ur Specific Dafter Urine Protein Urine Glucose (UA) Urine Ketones Urine Blood Urine Nitrite Urine Bilirubin Urine Urobilinogen Ur Leukocyte Esterase Blood Type Antibody Screen Crossmatch Problem List - Problems (1) Severe sepsis Code(s): A41.9 - SEPSIS, UNSPECIFIED ORGANISM; R65.20 - SEVERE SEPSIS WITHOUT SEPTIC SHOCK (2) SVT (supraventricular tachycardia) Code(s): I47.1 - SUPRAVENTRICULAR TACHYCARDIA (3) Aspiration pneumonia Code(s): J69.0 - PNEUMONITIS DUE TO INHALATION OF FOOD AND VOMIT (4) Pneumonitis Code(s): J18.9 - PNEUMONIA, UNSPECIFIED ORGANISM (5) Pneumonia Code(s): J18.9 - PNEUMONIA, UNSPECIFIED ORGANISM (6) Sepsis Code(s): A41.9 - SEPSIS, UNSPECIFIED ORGANISM (7) Colostomy status Code(s): Z93.3 - COLOSTOMY STATUS (8) Dehydration Code(s): E86.0 - DEHYDRATION (9) HTN (hypertension) Code(s): I10 - ESSENTIAL (PRIMARY) HYPERTENSION Qualifiers: Hypertension type: essential hypertension Qualified Code(s): I10 - Essential (primary) hypertension (10) Hypotension Code(s): I95.9 - HYPOTENSION, UNSPECIFIED (11) Hypothyroidism Code(s): E03.9 - HYPOTHYROIDISM, UNSPECIFIED Qualifiers: Hypothyroidism type: unspecified Qualified Code(s): E03.9 - Hypothyroidism , unspecified (12) Multiple myeloma Code(s): C90.00 - MULTIPLE MYELOMA NOT HAVING ACHIEVED REMISSION Qualifiers: Multiple myeloma remission status: not in remission Qualified Code(s): C90.00 - Multiple myeloma not having achieved remission (13) Paroxysmal A-fib Code(s): I48.0 - PAROXYSMAL ATRIAL FIBRILLATION (14) Tachycardia, paroxysmal Code(s): I47.9 - PAROXYSMAL TACHYCARDIA, UNSPECIFIED ASSESSMENT/PLAN: Aspiration PNA Paroxysmal AFib Left colostomy Multiple myeloma Hypothyroidism Type 2 DM HTN GERD Parotid tumor (s/p resection) 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
[2018-07-03 12:22] LABS: INR 1.23 (0.83-1.09); PROTHROMBIN TIME (PATIENT) 14.5 SEC (9.7-13.0)
[2018-07-03 12:25] LABS: ACTIVATED PTT 37.1 SECONDS (25.2-36.5)
--- NOTE | 2018-07-03 13:05 | PN ---
Physical Exam: SUBJECTIVE: Patient seen and examined. Pt. received 2 units of pRBCs this morning. Pt. says that he is at his baseline for shortness of breath and endorses mild abdominal pain with the worst around the colostomy bag. Pt. states that his last BM was around 1 week ago and that he usually has 3 BMs per week. Pt. states that he has had a chronic non-productive cough for the last 6 months. Pt. states he has residual right side deficits from Hx. of CVA? Pt. unable to remember. OBJECTIVE: Vital Signs Period Temp Pulse Resp BP Sys/Morejon Pulse Ox Last 24 Hr 97.8 F-101.2 F 68-166 13-20 73-120/51-74 92-100 GENERAL: The patient is frail, A&Ox 2(not to date), in no acute distress. HEAD: Left-sided facial droop. EYES: Unable to visualize L. Eye, though Pt. endorses being able to see out of it. Right eye deviates to the left, blind out of right eye. ENT: Ears normal, nares patent, oropharynx clear without exudates, dry mucous membranes. LUNGS: Breath sounds equal, clear to auscultation bilaterally, wet sounding cough, no accessory muscle use. HEART: Regular rate and rhythm, S1, S2 without murmur, rub or gallop. ABDOMEN: No crepitus appreciated around Colostomy site, firm fluctuance appreciated lateral to colostomy site, that was mildly tender to palpation. BS+ , localized distension around colostomy site EXTREMITIES: 2+ dorsal pedal pulses, warm, well-perfused, no edema. Pt. was unable to life right leg off bed, but can wiggle toes. Pt. can hold left leg off bed for more than 5 seconds. Pt. can hold both arms out in front however right arm droops before 10 seconds. Left arm remained off bed for more than 10 seconds. 2/5 presser automatic strength on right, 3/5 presser automatic strength on left. NEUROLOGICAL: Pt. endorses equal sensation on the face. Pt. can protrude tongue and shrug shoulders without difficulty. SKIN: Warm, dry, no erythema, discharge or purulence from colostomy site. Laboratory Results - last 24 hr 07/02/18 07/02/18 07/02/18 14:50 14:50 15:22 WBC Cancelled Corrected WBC (auto) Cancelled RBC Cancelled Hgb Cancelled Hct Cancelled MCV Cancelled MCH Cancelled MCHC Cancelled RDW Cancelled Plt Count Cancelled MPV Cancelled Absolute Neuts (auto) Cancelled Neutrophils % Cancelled Neutrophils % (Manual) Band Neutrophils % Lymphocytes % Cancelled Lymphocytes % (Manual) Monocytes % Cancelled Monocytes % (Manual) Eosinophils % Cancelled Eosinophils % (Manual) Basophils % Cancelled Basophils % (Manual) Myelocytes % (Man) Promyelocytes % (Man) Blast Cells % (Manual) Nucleated RBC % Cancelled Metamyelocytes Hypochromia Toxic Granulation Platelet Estimate Cancelled Platelet Comment Cancelled Polychromasia Poikilocytosis Anisocytosis Microcytosis Macrocytosis Tear Drop Cells Ovalocytes Acanthocytes (Spur) Fragmented RBCs Schistocytes PT with INR 17.00 H INR 1.44 H PTT (Actin FS) 35.5 VBG pH POC VBG pCO2 POC VBG pO2 Mixed VBG HCO3 Sodium 144 Potassium 4.1 Chloride 109 H Carbon Dioxide 30 Anion Gap 5 L BUN 34 H Creatinine 0.6 Creat Clearance w eGFR > 60 Random Glucose 99 Lactic Acid Calcium 8.3 L Phosphorus Magnesium Total Bilirubin 0.8 AST 32 ALT 37 Alkaline Phosphatase 109 Troponin I < 0.02 Total Protein 5.2 L Albumin 1.6 L TSH Free T4 Urine Color Urine Appearance Urine pH Ur Specific [place] Urine Protein Urine Glucose (UA) Urine Ketones Urine Blood Urine Nitrite Urine Bilirubin Urine Urobilinogen Ur Leukocyte Esterase Blood Type Antibody Screen Crossmatch Crossmatch IS Only 07/02/18 07/02/18 07/02/18 15:32 15:32 15:55 WBC 7.5 Corrected WBC (auto) RBC 2.81 L Hgb 8.9 L Hct 28.4 L MCV 101.0 H MCH 31.7 MCHC 31.4 L RDW 19.7 H Plt Count 253 MPV 9.8 D Absolute Neuts (auto) 6.7 Neutrophils % 88.6 H Neutrophils % (Manual) 86.0 H Band Neutrophils % Lymphocytes % 3.4 L D Lymphocytes % (Manual) 9.0 D Monocytes % 5.5 Monocytes % (Manual) 3 L Eosinophils % 2.4 D Eosinophils % (Manual) 2.0 D Basophils % 0.1 Basophils % (Manual) Myelocytes % (Man) Promyelocytes % (Man) Blast Cells % (Manual) Nucleated RBC % 0 Metamyelocytes Hypochromia 1+ Toxic Granulation Platelet Estimate Adequate Platelet Comment No clumping noted Polychromasia Poikilocytosis Anisocytosis 2+ Microcytosis 1+ Macrocytosis 2+ Tear Drop Cells Ovalocytes 1+ Acanthocytes (Spur) 1+ Fragmented RBCs Schistocytes PT with INR INR PTT (Actin FS) VBG pH 7.41 POC VBG pCO2 51.0 POC VBG pO2 25.1 L Mixed VBG HCO3 31.4 H Sodium 146 H Potassium 4.2 Chloride 107 Carbon Dioxide 30 Anion Gap 9 BUN 36 H Creatinine 0.8 Creat Clearance w eGFR > 60 Random Glucose 87 Lactic Acid Calcium 8.2 L Phosphorus 3.9 Magnesium 2.3 Total Bilirubin 0.8 AST 31 ALT 35 Alkaline Phosphatase 108 Troponin I Total Protein 5.2 L Albumin 1.6 L TSH 1.33 D Free T4 1.16 Urine Color Urine Appearance Urine pH Ur Specific [place] Urine Protein Urine Glucose (UA) Urine Ketones Urine Blood Urine Nitrite Urine Bilirubin Urine Urobilinogen Ur Leukocyte Esterase Blood Type Antibody Screen Crossmatch Crossmatch IS Only 07/02/18 07/02/18 07/02/18 18:29 23:08 23:08 WBC Corrected WBC (auto) RBC Hgb Hct MCV MCH MCHC RDW Plt Count MPV Absolute Neuts (auto) Neutrophils % Neutrophils % (Manual) Band Neutrophils % Lymphocytes % Lymphocytes % (Manual) Monocytes % Monocytes % (Manual) Eosinophils % Eosinophils % (Manual) Basophils % Basophils % (Manual) Myelocytes % (Man) Promyelocytes % (Man) Blast Cells % (Manual) Nucleated RBC % Metamyelocytes Hypochromia Toxic Granulation Platelet Estimate Platelet Comment Polychromasia Poikilocytosis Anisocytosis Microcytosis Macrocytosis Tear Drop Cells Ovalocytes Acanthocytes (Spur) Fragmented RBCs Schistocytes PT with INR INR PTT (Actin FS) VBG pH POC VBG pCO2 POC VBG pO2 Mixed VBG HCO3 Sodium Potassium Chloride Carbon Dioxide Anion Gap BUN Creatinine Creat Clearance w eGFR Random Glucose Lactic Acid 2.2 H* 1.6 Calcium Phosphorus Magnesium Total Bilirubin AST ALT Alkaline Phosphatase Troponin I Total Protein Albumin TSH Free T4 Urine Color Lana Urine Appearance Clear Urine pH 5.0 Ur Specific [place] 1.027 Urine Protein Negative Urine Glucose (UA) Negative Urine Ketones Negative Urine Blood Negative Urine Nitrite Negative Urine Bilirubin Negative Urine Urobilinogen Negative Ur Leukocyte Esterase Negative Blood Type Antibody Screen Crossmatch Crossmatch IS Only 07/03/18 07/03/18 07/03/18 05:30 05:30 07:37 WBC 7.0 Corrected WBC (auto) RBC 2.00 L Hgb 6.2 L* Hct 20.6 L D MCV 103.2 H MCH 30.9 MCHC 30.0 L RDW 19.6 H Plt Count 173 D MPV 9.7 Absolute Neuts (auto) 6.3 Neutrophils % 89.7 H Neutrophils % (Manual) 56.0 D Band Neutrophils % 30.0 Lymphocytes % 2.0 L D Lymphocytes % (Manual) 2.0 L D Monocytes % 7.4 Monocytes % (Manual) 10 D Eosinophils % 0.8 Eosinophils % (Manual) 1.0 Basophils % 0.1 Basophils % (Manual) 0.0 Myelocytes % (Man) 0 Promyelocytes % (Man) 0 Blast Cells % (Manual) 0 Nucleated RBC % 0 Metamyelocytes 1 D Hypochromia 0 Toxic Granulation Platelet Estimate Normal Platelet Comment Polychromasia 1+ Poikilocytosis 0 Anisocytosis 1+ Microcytosis Macrocytosis 1+ Tear Drop Cells Ovalocytes 1+ Acanthocytes (Spur) Fragmented RBCs 1+ Schistocytes PT with INR INR PTT (Actin FS) VBG pH POC VBG pCO2 POC VBG pO2 Mixed VBG HCO3 Sodium 148 H Potassium 3.7 Chloride 115 H Carbon Dioxide 26 Anion Gap 7 L BUN 33 H Creatinine 0.5 L Creat Clearance w eGFR > 60 Random Glucose 83 Lactic Acid Calcium 7.1 L Phosphorus 3.4 Magnesium 2.0 Total Bilirubin 0.6 AST 20 ALT 25 Alkaline Phosphatase 79 Troponin I Total Protein 4.1 L Albumin 1.2 L TSH Free T4 Urine Color Urine Appearance Urine pH Ur Specific [place] Urine Protein Urine Glucose (UA) Urine Ketones Urine Blood Urine Nitrite Urine Bilirubin Urine Urobilinogen Ur Leukocyte Esterase Blood Type O POSITIVE Antibody Screen Negative Crossmatch See Detail Crossmatch IS Only See Detail 07/03/18 07/03/18 07:37 11:35 WBC 6.8 Corrected WBC (auto) RBC 1.98 L Hgb 6.1 L* Hct 20.3 L MCV 102.4 H MCH 30.9 MCHC 30.2 L RDW 19.1 H Plt Count 165 MPV 9.5 Absolute Neuts (auto) 6.1 Neutrophils % 89.4 H Neutrophils % (Manual) 89.8 H D Band Neutrophils % 4.1 Lymphocytes % 1.9 L Lymphocytes % (Manual) 1.0 L D Monocytes % 7.8 Monocytes % (Manual) 4 Eosinophils % 0.8 Eosinophils % (Manual) 0.0 D Basophils % 0.1 Basophils % (Manual) 0.0 Myelocytes % (Man) 0 Promyelocytes % (Man) 0 Blast Cells % (Manual) 0 Nucleated RBC % 0 Metamyelocytes 1 Hypochromia 0 Toxic Granulation 1+ Platelet Estimate Normal Platelet Comment Polychromasia 0 Poikilocytosis 1+ Anisocytosis 1+ Microcytosis Macrocytosis 1+ Tear Drop Cells 1+ Ovalocytes Acanthocytes (Spur) Fragmented RBCs Schistocytes 1+ PT with INR 14.50 H INR 1.23 H PTT (Actin FS) 37.1 H VBG pH POC VBG pCO2 POC VBG pO2 Mixed VBG HCO3 Sodium Potassium Chloride Carbon Dioxide Anion Gap BUN Creatinine Creat Clearance w eGFR Random Glucose Lactic Acid Calcium Phosphorus Magnesium Total Bilirubin AST ALT Alkaline Phosphatase Troponin I Total Protein Albumin TSH Free T4 Urine Color Urine Appearance Urine pH Ur Specific [place] Urine Protein Urine Glucose (UA) Urine Ketones Urine Blood Urine Nitrite Urine Bilirubin Urine Urobilinogen Ur Leukocyte Esterase Blood Type Antibody Screen Crossmatch Crossmatch IS Only Active Medications Current Medications Acetaminophen (Tylenol -) 325 mg PO Q6H PRN PRN Reason: PAIN LEVEL 6-10 Acetaminophen (Ofirmev Injection -) 1,000 mg IVPB Q6H PRN PRN Reason: FEVER Last Admin: 07/03/18 02:09 Dose: 1,000 mg Chlorhexidine Gluconate (Hibiclens For Decolonization -) 1 applic TP HS BERE Vancomycin HCl (Vancomycin (Pre-Docked)) 1,000 mg in 250 mls @ 166.667 mls/hr IVPB ONCE ONE Stop: 07/03/18 18:29 Sodium Chloride (Normal Saline -) 1,000 mls @ 150 mls/hr IV ASDIR BERE Last Admin: 07/03/18 02:37 Dose: 150 mls/hr Clindamycin Phosphate (Cleocin 600 Mg Premix Ivpb -) 600 mg in 50 mls @ 100 mls /hr IVPB Q6H-IV BERE; Protocol Metronidazole (Flagyl 500mg Premixed Ivpb -) 500 mg in 100 mls @ 100 mls/hr IVPB Q8H-IV BERE Piperacillin Sod/Tazobactam (Sod 4.5 gm/ Dextrose) 100 mls @ 200 mls/hr IVPB Q8H-IV BERE; Protocol Levothyroxine Sodium (Synthroid -) 50 mcg PO DAILY@0700 [facility] Last Admin: 07/03/18 06:54 Dose: Not Given Magnesium Oxide (Mag-Ox -) 400 mg PO BID [facility] Last Admin: 07/03/18 09:49 Dose: 400 mg Mupirocin (Bactroban Ointment (For Decolonization) -) 1 applic NS BID [facility] Stop: 07/08/18 09:59 Last Admin: 07/03/18 10:26 Dose: 1 applic Oxycodone HCl (Roxicodone -) 5 mg PO Q6H PRN PRN Reason: PAIN LEVEL 6-10 Pantoprazole Sodium (Protonix -) 40 mg PO DAILY [facility] Last Admin: 07/03/18 09:49 Dose: 40 mg Paroxetine HCl (Paxil -) 30 mg PO DAILY [facility] Last Admin: 07/03/18 09:49 Dose: 30 mg Pregabalin (Lyrica -) 75 mg PO BID [facility] Last Admin: 07/03/18 09:49 Dose: 75 mg Thiamine HCl (Vitamin B1 Injection -) 200 mg IVPB BID [facility] Last Admin: 07/03/18 09:48 Dose: 200 mg Valacyclovir HCl (Valtrex -) 500 mg PO BID [facility] Last Admin: 07/03/18 09:49 Dose: 500 mg ASSESSMENT/PLAN: 78M w/ PMHx. of Multiple Myeloma, Hypothyroidism, DM, HTN, Paroxysmal A.Fib (on Eliquis), GERD, R. 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 states 6 months) admitted for severe sepsis 2/2 HCAP. #Infectious Disease -Severe sepsis 2/2 HCAP vs. vs intra-abdominal infection ID Consult Dr. Yee appreciated Received Zosyn and Vancomycin in the ED Pt. to be started on Clindamycin, Flagyl and Zosyn f/u SCx., BCx. and Ucx. would consider adding wound cultures LA: 2.2-->1.6 Legionella - #Cardiology -SVT Pt. did not respond to Adenosine 6, responded to Amiodarone 150 x1 dose and IVF Cardiology consulted (Dr. Tejeda) appreciated -A.fib Hold Metoprolol as Pt. was hypotensive and NPO Hold Eliguis, c/w Heparin gtt Lopressor 5 mg IVP PRN monitor on telemetry -HTN Hold Diovan 160mg Hold Norvasc #Gastroenterology -R/o Bowel perforation Surgery consult (Dr. Jeffrey and Dr. Treviño) appreciated Pt. is s/p colostomy relocation and debridement. Pt. had disimpacted stool at the colostomy site, no sign of gross infection or necrosis. CT A/P shows air in superficial skin and ostomy, b/l lower lobe infiltrates, severe diffuse osseous demineralizations, chronic multi-level thoracolumbar compression fractures. NPO c/w Protonix 40mg IVP #Endocrine -Hypothyroidism start Synthroid 25mcg IVP (PO to IV conversion for Synthroid is 2:1- verified with Pharmacy) Hold home Synthroid 50mg PO #Urology -BPH hold home PO medications as Pt. is NPO and has Vizcarra #DVT Ppx -Heparin Gtt #F/E/N -c/w NS @ 150 -monitor electrolytes and replete as needed -NPO, can advance diet to clears tomorrow if able- per Dr. Treviño #Dispo -Pt comes from [facility] -Full Code; Spoke to pt's daughter who HCP, has clearly expressed that she wants pt full code Visit type - Emergency Visit Emergency Visit: Yes ED Registration Date: 07/03/18 Care time: The patient presented to the Emergency Department on the above date and was hospitalized for further evaluation of their emergent condition. - New Patient This patient is new to me today: Yes Date on this admission: 07/04/18 - Critical Care Critical Care patient: Yes Total Critical Care Time (in minutes): 46 Critical Care Statement: The care of this patient involved high complexity decision making to prevent further life threatening deterioration of the patient 's condition and/or to evaluate & treat vital organ system(s) failure or risk of failure. - Discharge Referral Referred to [facility] No
[2018-07-03] MEDS ORDERED: fentaNYL CITRATE 250 MCG/5 ML VIAL ONE (13:08)
[2018-07-03] MEDS ORDERED: BENZOIN TINCTURE SWABSTICK TP ONE ×2 (13:20→15:31)
[2018-07-03] MEDS ORDERED: METOPROLOL TARTRATE 5 MG/5 ML VIAL IVPUSH PRN (14:26)
[2018-07-03] MEDS ORDERED: BUPIVACAINE HCL/PF 0.5% (5MG/ML) 10 ML VIAL ONE (14:36)
[2018-07-03] MEDS ORDERED: GLYCOPYRROLATE 0.2 MG/1 ML VIAL ONE (15:26)
[2018-07-03] MEDS ORDERED: NEOSTIGMINE METHYLSULFATE 0.5 MG/ML - 10 ML MDV ONE (15:26)
[2018-07-03] MEDS ORDERED: FLUMAZENIL 0.5 MG/5 ML VIAL ONE (15:51)
--- NOTE | 2018-07-03 16:10 | OP ---
Operative Note - Note: Operative Date: 07/03/18 Pre-Operative Diagnosis: bowel perforation, sepsis Operation: colostomy site exploration, rapair of colonic perforation, CELIA, diverting transverse loop colostomy Findings: extraperitoneal colonic perforation, omental adhesions, fecal soiling of peristomal subcutaneous space Surgeon: Deshawn Treviño Early Childhood Teacher: Raul Estrada Anesthesia: General Estimated Blood Loss (mls): 50 Operative Report Dictated: Yes
--- NOTE | 2018-07-03 16:24 | SURG ---
Surgery Clinical Marketing Manager Note Clinical Marketing Manager: Raul Estrada PA-C Date of Service: 07/03/18 Diagnosis: Bowel perforation, sepsis Procedure: colostomy site exploration, rapair of colonic perforation, CELIA, diverting transverse loop colostomy I was present for the entirety of the operative procedure. For further detail, please refer to operative report.
[2018-07-03] MEDS ORDERED: VANCOMYCIN 1 GRAM (PRE-DOCKED) 1,000 MG/250 ML BAG IVPB ONE (17:00)
[2018-07-03] MEDS ORDERED: PIPERACILLIN/TAZOBACTAM 4.5 GM VIAL IVPB ONE ×2 (17:08→17:09)
[2018-07-03] MEDS ORDERED: DEXTROSE 5%-WATER 100 ML IVPB ONE ×2 (17:09)
[2018-07-03] MEDS: CLINDAMYCIN 600MG PREMIX IVPB 600 MG/50 ML BAG IVPB SCH ×3 (17:12→21:40)
[2018-07-03] MEDS: PIPERACILLIN/TAZOB 4.5 GM 4.5 GM in DEXTROSE 5%-WATER 100 ML IVPB SCH ×2 (17:14→17:59)
[2018-07-03] MEDS ORDERED: PROPOFOL 1,000,000 MCG/100 ML VIAL IVPB SCH (20:15)
[2018-07-03] MEDS: SODIUM CHLORIDE 1,000 ML IV SCH (20:45)
[2018-07-03] MEDS ORDERED: LIDOCAINE HCL 2% JELLY 10 ML CARTRIDGE UR ONE (20:47)
[2018-07-03 20:54] LABS: HEMATOCRIT 28.6 % (35.4-49); HEMOGLOBIN 8.9 GM/dL (11.7-16.9); MCH 30.2 pg (25.7-33.7); MCHC 31.2 g/dl (32.0-35.9); MEAN CELL VOLUME 96.6 fl (80-96); PLATELET COUNT 173 K/MM3 (134-434); RBC 2.96 M/mm3 (4.00-5.60); RDW 22.9 % (11.9-15.9); WHITE BLOOD COUNT 5.5 K/mm3 (4.0-10.0)
[2018-07-03 21:20] LABS: ALBUMIN 1.2 g/dl (3.4-5.0); ALK PHOS 73 U/L (45-117); ANION GAP 6 MMOL/L (8-16); BLOOD UREA NITROGEN 30 mg/dL (7-18); CALCIUM 7.2 mg/dL (8.5-10.1); CHLORIDE 119 mmol/L (98-107); CO2 22 mmol/L (21-32); CREATININE 0.5 mg/dL (0.55-1.3); GLUCOSE,RANDOM 132 mg/dL (74-106); MAGNESIUM 1.9 mg/dL (1.8-2.4); PHOSPHOROUS 3.2 mg/dL (2.5-4.9); POTASSIUM 3.4 mmol/L (3.5-5.1); SGOT/AST 16 U/L (15-37); SGPT/ALT 23 U/L (13-61); SODIUM 147 mmol/L (136-145); TOT PROT 3.8 g/dl (6.4-8.2)
[2018-07-03] MEDS ORDERED: CHLORHEXIDINE GLUCONATE 4% CLEANSER FOR DECOLONIZATION TP SCH ×2 (22:00)
[2018-07-03] MEDS: KCL 10 MEQ IVPB 10 MEQ/100 ML INFUS.BAG IVPB SCH (22:41)
[2018-07-03] MEDS: MUPIROCIN 2% TOPICAL OINTMENT FOR DECOLONIZATION NS SCH (22:41)
[2018-07-03] MEDS: PREGABALIN 75 MG CAPSULE PO SCH (22:43)
[2018-07-03] MEDS: MAGNESIUM OXIDE 400 MG TABLET (FP) PO SCH (22:43)
[2018-07-03] MEDS: CHLORHEXIDINE GLUCONATE 4% CLEANSER FOR DECOLONIZATION TP SCH (22:43)
[2018-07-03] MEDS: valACYclovir HCL 500 MG TABLET (FP) PO SCH (22:43)
[2018-07-04] MEDS: KCL 10 MEQ IVPB 10 MEQ/100 ML INFUS.BAG IVPB SCH
[2018-07-04] MEDS: ACETAMINOPHEN 1000 MG/100 ML VIAL (NON FORMULARY) IVPB PRN ×2 (00:19→17:05)
[2018-07-04] MEDS: PIPERACILLIN/TAZOB 4.5 GM 4.5 GM in DEXTROSE 5%-WATER 100 ML IVPB SCH ×3 (02:23→17:06)
[2018-07-04] MEDS ORDERED: DEXTROSE 5%-WATER 100 ML IVPB ONE ×3 (03:12→16:42)
[2018-07-04] MEDS ORDERED: PIPERACILLIN/TAZOBACTAM 4.5 GM VIAL IVPB ONE ×3 (03:12→16:42)
[2018-07-04] MEDS: CLINDAMYCIN 600MG PREMIX IVPB 600 MG/50 ML BAG IVPB SCH ×4 (03:25→20:58)
[2018-07-04 06:23] LABS: HEMOGLOBIN 7.8 GM/dL (11.7-16.9); MCH 30.1 pg (25.7-33.7); MCHC 31.1 g/dl (32.0-35.9); MEAN CELL VOLUME 96.7 fl (80-96); MEAN PLT VOLUME 10.5 fl (7.5-11.1); PLATELET COUNT 133 K/MM3 (134-434); RBC 2.59 M/mm3 (4.00-5.60); RDW 22.8 % (11.9-15.9)
[2018-07-04 07:16] LABS: ALK PHOS 61 U/L (45-117); ANION GAP 8 MMOL/L (8-16); BILIRUBIN,TOTAL 0.7 mg/dL (0.2-1); BLOOD UREA NITROGEN 33 mg/dL (7-18); CHLORIDE 119 mmol/L (98-107); CO2 21 mmol/L (21-32); CREATININE 0.7 mg/dL (0.55-1.3); GLUCOSE,RANDOM 87 mg/dL (74-106); MAGNESIUM 1.9 mg/dL (1.8-2.4); PHOSPHOROUS 3.2 mg/dL (2.5-4.9); POTASSIUM 3.6 mmol/L (3.5-5.1); SGOT/AST 16 U/L (15-37); SGPT/ALT 18 U/L (13-61); SODIUM 148 mmol/L (136-145); TOT PROT 3.4 g/dl (6.4-8.2)
[2018-07-04 07:31] LABS: CALCIUM 6.9 mg/dL (8.5-10.1)
[2018-07-04] MEDS: SODIUM CHLORIDE 1,000 ML IV SCH ×3 (07:45→20:57)
[2018-07-04] MEDS ORDERED: PT OWN MED DRAWER 7, Y5N ONE (07:54)
--- NOTE | 2018-07-04 08:50 | OP ---
DATE OF OPERATION: 07/03/2018 LOCATION: Intensive care unit. PROCEDURE: Colostomy site exploration, repair of colonic perforation and diverting transverse loop colostomy. PREOPERATIVE DIAGNOSIS: Sepsis secondary to possible extraperitoneal hollow viscus perforation. POSTOPERATIVE DIAGNOSIS: Extraperitoneal parastomal colonic perforation. SURGEON: Deshawn Treviño MD METAL MOLDER: JODI Reed ANESTHESIA: General endotracheal. FINDINGS ON PROCEDURE: This is a 78-year-old male with history of multiple myeloma on perpetual chemotherapy who 2 years ago underwent an emergency laparotomy, sigmoid colon resection and end colostomy for a perforated diverticulitis with fecal peritonitis. The patient has been on continuous treatment with his multiple myeloma. Thereby, he was no longer a candidate for colostomy reversals. Patient had developed a parastomal hernia. However, he remained asymptomatic. However, a [facility], patient was noted to have fever, discomfort in the left lower quadrant, associated with mental status change. He was admitted in the ICU for treatment of sepsis. CAT scan of the abdomen and pelvis revealed massive subcutaneous air around the end-colostomy site of the left lower quadrant. On physical exam, patient has bulge of the left lower quadrant, which was presumed to be a parastomal hernia and cellulitis of the dependent portion of the left lower quadrant. The patient was advised emergency exploration of the colostomy site, and consent was obtained from the spouse after discussing the risks, benefits, and alternatives of the procedure. DESCRIPTION OF PROCEDURE: Patient was brought to the operating room and placed in supine position. General endotracheal anesthesia was administered. The abdomen was prepped and draped in the usual sterile fashion. The end-colostomy was initially closed with continuous Vicryl 2-0 suture. A paramedian incision about superior and inferior to the colostomy was done, made using a scalpel blade No. 10. Dissection was carried down to subcutaneous tissue. A moderate amount of solid stool was noted in the parastomal subcutaneous layer. This was then evacuated, and 1.5-cm perforation of the proximal colon above the fascia was noted. The end colostomy was dissected free from the skin and subcutaneous tissue attachment. The large amount of solid stool was evacuated from the subcutaneous extraperitoneal space. The wound was then copiously irrigated with sterile normal saline until return was clear. The colonic perforation was repaired with 1 layer of continuous Vicryl 2-0. The end-colostomy opening, was digitally explored and some of the solid stool was completely evacuated. The stoma was irrigated with sterile normal saline also to soften the hard solid stool. Afterwards, the wound cavity was packed with Xeroform combined with Iodoform strips and covered with sterile dressing. The abdomen was re-prepped at this time, and a transverse loop colostomy was constructed by making a 6-cm transverse incision at the right upper quadrant and incising the fascia, the anterior rectus sheath to enter into the peritoneal cavity. The rectus muscle was retracted for the peritoneal cavity was entered by incising the parietal peritoneum with some Metzenbaum scissors. Adhesions of the omentum were encountered, and these were taken down sharply using Metzenbaum scissors combined with sponge stick. The transverse colon was then identified and then exteriorized through the incision. The appendices epiploicae or paracolic fat was trimmed, and an opening was made in the mesentery close to the bowel wall to insert the Kinyarwanda 18 red rubber that will serve as a glass jinny. After adequate mobilization was achieved, the fascia was partially tightened with a figure-of-8 Vicryl 2-0 suture. The skin was also partially tightened with subcuticular Vicryl 3-0 suture. The colostomy was then matured by incising the anterior tenia and anchoring the colonic wall to the skin. Afterwards, colostomy bag was applied. The patient was brought back to the intensive care unit in satisfactory condition. ESTIMATED BLOOD LOSS: About 50 mL. WOUND CLASS: Dirty. Patient was already on intravenous antibiotics upon admission. Nikolai [id number] MTDD
[2018-07-04] MEDS ORDERED: SODIUM CHLORIDE 0.9% 500 ML INFUS.BAG IV STA (08:55)
[2018-07-04] MEDS: LEVOTHYROXINE SODIUM 100 MCG VIAL IVPUSH SCH (09:03)
[2018-07-04] MEDS: valACYclovir HCL 500 MG TABLET (FP) PO SCH ×2 (09:04→20:59)
[2018-07-04] MEDS: MAGNESIUM OXIDE 400 MG TABLET (FP) PO SCH ×2 (09:04→20:59)
[2018-07-04] MEDS: PARoxetine HCL 10 MG TABLET (FP) PO SCH (09:04)
[2018-07-04] MEDS: PREGABALIN 75 MG CAPSULE PO SCH ×2 (09:04→20:59)
[2018-07-04] MEDS ORDERED: SODIUM CHLORIDE 1,000 ML IV STA (09:08)
--- NOTE | 2018-07-04 09:26 | PN ---
Progress Note (short form) - Note Progress Note: PULM/CCM Pt. Seen & Examined in the ICU. Pt is intubated & sedated on the Vent, not any pressors. Today is Post-Op Day #1 s/p ex lap for repair of perf bowel & revision of ostomy. Active Medications Acetaminophen (Tylenol -) 325 mg PO Q6H PRN PRN Reason: PAIN LEVEL 6-10 Acetaminophen (Ofirmev Injection -) 1,000 mg IVPB Q6H PRN PRN Reason: FEVER Last Admin: 07/04/18 17:05 Dose: 1,000 mg Chlorhexidine Gluconate (Hibiclens For Decolonization -) 1 applic TP HS BERE Last Admin: 07/03/18 22:43 Dose: 1 applic Propofol (Diprivan -) 1,000,000 mcg in 100 mls @ 2.467 mls/hr IVPB TITR BERE; Protocol Last Titration: 07/04/18 08:45 Dose: 0 mcg/kg/min, 0 mls/hr Sodium Chloride (Normal Saline -) 1,000 mls @ 150 mls/hr IV ASDIR BERE Last Admin: 07/04/18 16:00 Dose: 150 mls/hr Clindamycin Phosphate (Cleocin 600 Mg Premix Ivpb -) 600 mg in 50 mls @ 100 mls /hr IVPB Q6H-IV BERE; Protocol Last Admin: 07/04/18 14:02 Dose: 100 mls/hr Metronidazole (Flagyl 500mg Premixed Ivpb -) 500 mg in 100 mls @ 100 mls/hr IVPB Q8H-IV BERE Last Admin: 07/04/18 17:06 Dose: 100 mls/hr Piperacillin Sod/Tazobactam (Sod 4.5 gm/ Dextrose) 100 mls @ 200 mls/hr IVPB Q8H-IV BERE; Protocol Last Admin: 07/04/18 17:06 Dose: 200 mls/hr Levothyroxine Sodium (Synthroid Injection -) 25 mcg IVPUSH DAILY@0700 [facility] Last Admin: 07/04/18 09:03 Dose: 25 mcg Magnesium Oxide (Mag-Ox -) 400 mg PO BID [facility] Last Admin: 07/04/18 09:04 Dose: Not Given Metoprolol Succinate (Toprol Xl -) 50 mg PO DAILY [facility] Metoprolol Tartrate (Lopressor Injection -) 5 mg IVPUSH Q4H PRN PRN Reason: HYPERTENSION Mupirocin (Bactroban Ointment (For Decolonization) -) 1 applic NS BID [facility] Stop: 07/08/18 09:59 Last Admin: 07/04/18 14:01 Dose: 1 applic Oxycodone HCl (Roxicodone -) 5 mg PO Q6H PRN PRN Reason: PAIN LEVEL 6-10 Pantoprazole Sodium (Protonix Iv) 40 mg IVPUSH DAILY [facility] Last Admin: 07/04/18 09:30 Dose: 40 mg Paroxetine HCl (Paxil -) 30 mg PO DAILY [facility] Last Admin: 07/04/18 09:04 Dose: Not Given Pregabalin (Lyrica -) 75 mg PO BID [facility] Last Admin: 07/04/18 09:04 Dose: Not Given Thiamine HCl (Vitamin B1 Injection -) 200 mg IVPB BID [facility] Last Admin: 07/04/18 09:31 Dose: 200 mg Valacyclovir HCl (Valtrex -) 500 mg PO BID [facility] Last Admin: 07/04/18 09:04 Dose: Not Given Vital Signs Period Temp Pulse Resp BP Sys/Morejon Pulse Ox Last 24 Hr 98.0 F-100.3 F 89-112 12-30 89-109/59-76 96-100 Intake & Output 07/01/18 07/02/18 07/03/18 07/04/18 23:59 23:59 23:59 23:59 Intake Total 6050 4935.1 Output Total 250 850 610 Balance -250 5200 4325.1 Weight 63.503 kg 82.242 kg 81.647 kg GEN: Elderly man in bed, intubated & sedated HEENT: R eye blind, L pupil is R & RL PULM: CTAB CV: nml S1 S2, RR, unable to appreciate any G/M/R ABD: Fresh New R side colostomy, pink, productive, + BS, S/S N/T N/D X4Q EXT: + Pulses, WWPX4, + peripheral edema CBC, BMP 07/04/18 05:30 07/04/18 05:30 Microbiology 07/02/18 15:22 Blood - Peripheral Venous Blood Culture - Preliminary NO GROWTH OBTAINED AFTER 48 HOURS, INCUBATION TO CONTINUE FOR 3 DAYS. 07/02/18 14:50 Blood - Peripheral Venous Blood Culture - Preliminary NO GROWTH OBTAINED AFTER 48 HOURS, INCUBATION TO CONTINUE FOR 3 DAYS. 07/03/18 11:35 Sputum - Expectorated Gram Stain - Final 07/03/18 11:35 Sputum - Expectorated Sputum Culture - Preliminary Lactose Fermenting Neg Bacilli Non Lactose Fermenting Gnb Staphylococcus Latex Coag Pos 07/02/18 23:08 Urine - Urine - Catheterized Urine Culture - Final NO GROWTH OBTAINED 07/03/18 11:35 Urine For Antigen Detection Legionella Antigen - Final 07/03/18 11:35 Urine For Antigen Detection Streptococcus pneumoniae Antigen (M - Final CXR 07/04: Since 07/02/2018 at 2157 hours, the right jugular line remains in place. New endotracheal tube is been inserted and the tip is by the clavicular heads well above the kylah. There is a progressive left infiltrate with fluid. There is a prominent mediastinum and degenerative changes. The right lung is clear. The is old rib trauma. Follow-up recommended. ASSESS: Post-Op Day #1 s/p ex lap for repair of perf bowel & revision of ostomy. 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
[2018-07-04] MEDS: PANTOPRAZOLE SODIUM 40 MG VIAL IVPUSH SCH (09:30)
[2018-07-04] MEDS: THIAMINE HCL 200 MG/2 ML VIAL IVPB SCH ×2 (09:31→20:59)
[2018-07-04] MEDS ORDERED: PANTOPRAZOLE SODIUM 40 MG VIAL IVPUSH SCH (10:00)
[2018-07-04] MEDS ORDERED: AMIODARONE HCL 150 MG/3 ML VIAL ONE ×2 (11:44→19:55)
[2018-07-04] MEDS ORDERED: AMIODARONE HCL 150 MG/3 ML VIAL IVPUSH ONE (11:45)
--- NOTE | 2018-07-04 11:57 | PN ---
Progress Note, Physician - Current Medication List Current Medications: Active Medications Acetaminophen (Tylenol -) 325 mg PO Q6H PRN PRN Reason: PAIN LEVEL 6-10 Acetaminophen (Ofirmev Injection -) 1,000 mg IVPB Q6H PRN PRN Reason: FEVER Last Admin: 07/04/18 00:19 Dose: 1,000 mg Amiodarone HCl (Cordarone Injection -) 150 mg IVPUSH ONCE ONE Stop: 07/04/18 11:46 Chlorhexidine Gluconate (Hibiclens For Decolonization -) 1 applic TP HS BERE Last Admin: 07/03/18 22:43 Dose: 1 applic Propofol (Diprivan -) 1,000,000 mcg in 100 mls @ 2.467 mls/hr IVPB TITR [facility]; Protocol Last Titration: 07/04/18 08:45 Dose: 0 mcg/kg/min, 0 mls/hr Sodium Chloride (Normal Saline -) 1,000 mls @ 150 mls/hr IV ASDIR BERE Last Admin: 07/04/18 07:45 Dose: 150 mls/hr Clindamycin Phosphate (Cleocin 600 Mg Premix Ivpb -) 600 mg in 50 mls @ 100 mls /hr IVPB Q6H-IV [facility]; Protocol Last Admin: 07/04/18 09:02 Dose: 100 mls/hr Metronidazole (Flagyl 500mg Premixed Ivpb -) 500 mg in 100 mls @ 100 mls/hr IVPB Q8H-IV [facility] Last Admin: 07/04/18 09:02 Dose: 100 mls/hr Piperacillin Sod/Tazobactam (Sod 4.5 gm/ Dextrose) 100 mls @ 200 mls/hr IVPB Q8H-IV BERE; Protocol Last Admin: 07/04/18 09:02 Dose: 200 mls/hr Levothyroxine Sodium (Synthroid Injection -) 25 mcg IVPUSH DAILY@0700 [facility] Last Admin: 07/04/18 09:03 Dose: 25 mcg Magnesium Oxide (Mag-Ox -) 400 mg PO BID [facility] Last Admin: 07/04/18 09:04 Dose: Not Given Metoprolol Succinate (Toprol Xl -) 50 mg PO DAILY [facility] Metoprolol Tartrate (Lopressor Injection -) 5 mg IVPUSH Q4H PRN PRN Reason: HYPERTENSION Mupirocin (Bactroban Ointment (For Decolonization) -) 1 applic NS BID [facility] Stop: 07/08/18 09:59 Last Admin: 07/03/18 22:41 Dose: 1 applic Oxycodone HCl (Roxicodone -) 5 mg PO Q6H PRN PRN Reason: PAIN LEVEL 6-10 Pantoprazole Sodium (Protonix Iv) 40 mg IVPUSH DAILY [facility] Last Admin: 07/04/18 09:30 Dose: 40 mg Paroxetine HCl (Paxil -) 30 mg PO DAILY [facility] Last Admin: 07/04/18 09:04 Dose: Not Given Pregabalin (Lyrica -) 75 mg PO BID [facility] Last Admin: 07/04/18 09:04 Dose: Not Given Thiamine HCl (Vitamin B1 Injection -) 200 mg IVPB BID [facility] Last Admin: 07/04/18 09:31 Dose: 200 mg Valacyclovir HCl (Valtrex -) 500 mg PO BID [facility] Last Admin: 07/04/18 09:04 Dose: Not Given - Objective Vital Signs: Vital Signs Temperature 98.4 F 07/04/18 10:00 Pulse Rate 112 H 07/04/18 11:35 Respiratory Rate 14 07/04/18 10:00 Blood Pressure 109/71 07/04/18 10:00 O2 Sat by Pulse Oximetry (%) 98 07/04/18 11:35 Constitutional: Yes: Moderate Distress Eyes: Yes: WNL HENT: Yes: WNL Neck: Yes: Supple Cardiovascular: Yes: Tachycardia Respiratory: Yes: Diminished Gastrointestinal: Yes: WNL ...Rectal Exam: Yes: Deferred Genitourinary: Yes: Vizcarra Present Breast(s): Yes: WNL Neurological: Yes: Lethargy Labs: CBC, BMP 07/04/18 05:30 07/04/18 05:30 INR, PTT INR 1.23 (0.83-1.09) H 07/03/18 11:35 Assessment/Plan Case discussed with ICU PA advised amiodorone IV
--- NOTE | 2018-07-04 12:29 | PN ---
Progress Note, Physician History of Present Illness: post op patient awake alert more stable no complaints colostomy in midline now - Current Medication List Current Medications: Active Medications Acetaminophen (Tylenol -) 325 mg PO Q6H PRN PRN Reason: PAIN LEVEL 6-10 Acetaminophen (Ofirmev Injection -) 1,000 mg IVPB Q6H PRN PRN Reason: FEVER Last Admin: 07/04/18 00:19 Dose: 1,000 mg Amiodarone HCl (Cordarone Injection -) 150 mg IVPUSH ONCE ONE Stop: 07/04/18 11:46 Chlorhexidine Gluconate (Hibiclens For Decolonization -) 1 applic TP HS [facility] Last Admin: 07/03/18 22:43 Dose: 1 applic Propofol (Diprivan -) 1,000,000 mcg in 100 mls @ 2.467 mls/hr IVPB TITR [facility]; Protocol Last Titration: 07/04/18 08:45 Dose: 0 mcg/kg/min, 0 mls/hr Sodium Chloride (Normal Saline -) 1,000 mls @ 150 mls/hr IV ASDIR [facility] Last Admin: 07/04/18 07:45 Dose: 150 mls/hr Clindamycin Phosphate (Cleocin 600 Mg Premix Ivpb -) 600 mg in 50 mls @ 100 mls /hr IVPB Q6H-IV [facility]ERE; Protocol Last Admin: 07/04/18 09:02 Dose: 100 mls/hr Metronidazole (Flagyl 500mg Premixed Ivpb -) 500 mg in 100 mls @ 100 mls/hr IVPB Q8H-IV [facility] Last Admin: 07/04/18 09:02 Dose: 100 mls/hr Piperacillin Sod/Tazobactam (Sod 4.5 gm/ Dextrose) 100 mls @ 200 mls/hr IVPB Q8H-IV [facility]; Protocol Last Admin: 07/04/18 09:02 Dose: 200 mls/hr Levothyroxine Sodium (Synthroid Injection -) 25 mcg IVPUSH DAILY@0700 [facility] Last Admin: 07/04/18 09:03 Dose: 25 mcg Magnesium Oxide (Mag-Ox -) 400 mg PO BID [facility] Last Admin: 07/04/18 09:04 Dose: Not Given Metoprolol Succinate (Toprol Xl -) 50 mg PO DAILY [facility] Metoprolol Tartrate (Lopressor Injection -) 5 mg IVPUSH Q4H PRN PRN Reason: HYPERTENSION Mupirocin (Bactroban Ointment (For Decolonization) -) 1 applic NS BID [facility] Stop: 07/08/18 09:59 Last Admin: 07/03/18 22:41 Dose: 1 applic Oxycodone HCl (Roxicodone -) 5 mg PO Q6H PRN PRN Reason: PAIN LEVEL 6-10 Pantoprazole Sodium (Protonix Iv) 40 mg IVPUSH DAILY [facility] Last Admin: 07/04/18 09:30 Dose: 40 mg Paroxetine HCl (Paxil -) 30 mg PO DAILY [facility] Last Admin: 07/04/18 09:04 Dose: Not Given Pregabalin (Lyrica -) 75 mg PO BID [facility] Last Admin: 07/04/18 09:04 Dose: Not Given Thiamine HCl (Vitamin B1 Injection -) 200 mg IVPB BID [facility] Last Admin: 07/04/18 09:31 Dose: 200 mg Valacyclovir HCl (Valtrex -) 500 mg PO BID [facility] Last Admin: 07/04/18 09:04 Dose: Not Given - Objective Vital Signs: Vital Signs Temperature 98.6 F 07/04/18 12:00 Pulse Rate 105 H 07/04/18 12:00 Respiratory Rate 30 H 07/04/18 12:00 Blood Pressure 108/76 07/04/18 12:00 O2 Sat by Pulse Oximetry (%) 98 07/04/18 11:35 Constitutional: Yes: No Distress, Calm Neck: Yes: Supple Cardiovascular: Yes: Regular Rate and Rhythm Respiratory: Yes: Regular, On Nasal O2, Poor Air Entry Gastrointestinal: Yes: Other (absent bowel sounds) Musculoskeletal: Yes: WNL Edema: LUE: 1+, RUE: 1+, LLE: 1+, RLE: 1+ Wound/Incision: Yes: Dressing Dry and Intact Neurological: Yes: Alert Psychiatric: Yes: Alert Labs: CBC, BMP 07/04/18 05:30 07/04/18 05:30 INR, PTT INR 1.23 (0.83-1.09) H 07/03/18 11:35 Assessment/Plan 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
[2018-07-04] MEDS ORDERED: AMIODARONE IN DEXTROSE,ISO-OSM 150 MG/100 ML BAG IVPB ONE ×2 (13:03→19:55)
[2018-07-04] MEDS: MUPIROCIN 2% TOPICAL OINTMENT FOR DECOLONIZATION NS SCH ×2 (14:01→21:00)
--- NOTE | 2018-07-04 14:15 | PN ---
Progress Note, Physician Chief Complaint: Remains in ICU intubated on mechanical vent Post OP #1 History of Present Illness: Patient was seen and examined in ICU. Mechanical ventilation weaning process. Chart was reviewed Hemodynamics stable - Current Medication List Current Medications: Active Medications Acetaminophen (Tylenol -) 325 mg PO Q6H PRN PRN Reason: PAIN LEVEL 6-10 Acetaminophen (Ofirmev Injection -) 1,000 mg IVPB Q6H PRN PRN Reason: FEVER Last Admin: 07/04/18 00:19 Dose: 1,000 mg Chlorhexidine Gluconate (Hibiclens For Decolonization -) 1 applic TP HS [facility] Last Admin: 07/03/18 22:43 Dose: 1 applic Propofol (Diprivan -) 1,000,000 mcg in 100 mls @ 2.467 mls/hr IVPB TITR [facility]; Protocol Last Titration: 07/04/18 08:45 Dose: 0 mcg/kg/min, 0 mls/hr Sodium Chloride (Normal Saline -) 1,000 mls @ 150 mls/hr IV ASDIR [facility]ERE Last Admin: 07/04/18 07:45 Dose: 150 mls/hr Clindamycin Phosphate (Cleocin 600 Mg Premix Ivpb -) 600 mg in 50 mls @ 100 mls /hr IVPB Q6H-IV [facility]ERE; Protocol Last Admin: 07/04/18 14:02 Dose: 100 mls/hr Metronidazole (Flagyl 500mg Premixed Ivpb -) 500 mg in 100 mls @ 100 mls/hr IVPB Q8H-IV [facility]ERE Last Admin: 07/04/18 09:02 Dose: 100 mls/hr Piperacillin Sod/Tazobactam (Sod 4.5 gm/ Dextrose) 100 mls @ 200 mls/hr IVPB Q8H-IV [facility]; Protocol Last Admin: 07/04/18 09:02 Dose: 200 mls/hr Levothyroxine Sodium (Synthroid Injection -) 25 mcg IVPUSH DAILY@0700 [facility] Last Admin: 07/04/18 09:03 Dose: 25 mcg Magnesium Oxide (Mag-Ox -) 400 mg PO BID [facility] Last Admin: 07/04/18 09:04 Dose: Not Given Metoprolol Succinate (Toprol Xl -) 50 mg PO DAILY [facility] Metoprolol Tartrate (Lopressor Injection -) 5 mg IVPUSH Q4H PRN PRN Reason: HYPERTENSION Mupirocin (Bactroban Ointment (For Decolonization) -) 1 applic NS BID [facility] Stop: 07/08/18 09:59 Last Admin: 07/04/18 14:01 Dose: 1 applic Oxycodone HCl (Roxicodone -) 5 mg PO Q6H PRN PRN Reason: PAIN LEVEL 6-10 Pantoprazole Sodium (Protonix Iv) 40 mg IVPUSH DAILY [facility] Last Admin: 07/04/18 09:30 Dose: 40 mg Paroxetine HCl (Paxil -) 30 mg PO DAILY [facility] Last Admin: 07/04/18 09:04 Dose: Not Given Pregabalin (Lyrica -) 75 mg PO BID [facility] Last Admin: 07/04/18 09:04 Dose: Not Given Thiamine HCl (Vitamin B1 Injection -) 200 mg IVPB BID [facility] Last Admin: 07/04/18 09:31 Dose: 200 mg Valacyclovir HCl (Valtrex -) 500 mg PO BID [facility] Last Admin: 07/04/18 09:04 Dose: Not Given - Objective Vital Signs: Vital Signs Temperature 98.6 F 07/04/18 12:00 Pulse Rate 105 H 07/04/18 14:00 Respiratory Rate 30 H 07/04/18 14:00 Blood Pressure 92/71 07/04/18 14:00 O2 Sat by Pulse Oximetry (%) 98 07/04/18 11:35 Cardiovascular: Yes: Regular Rate and Rhythm, Tachycardia, S1, S2 Respiratory: Yes: Mechanically Ventilated Gastrointestinal: Yes: Other (Post op colostomy) Edema: No Labs: CBC, BMP 07/04/18 05:30 07/04/18 05:30 INR, PTT INR 1.23 (0.83-1.09) H 07/03/18 11:35 Problem List - Problems (1) Abscess of colostomy Code(s): K94.02 - COLOSTOMY INFECTION (2) Colostomy complication Code(s): K94.00 - COLOSTOMY COMPLICATION, UNSPECIFIED (3) Pneumonia Code(s): J18.9 - PNEUMONIA, UNSPECIFIED ORGANISM (4) SVT (supraventricular tachycardia) Code(s): I47.1 - SUPRAVENTRICULAR TACHYCARDIA (5) Sepsis Code(s): A41.9 - SEPSIS, UNSPECIFIED ORGANISM (6) Anemia Code(s): D64.9 - ANEMIA, UNSPECIFIED Qualifiers: Anemia type: unspecified type Qualified Code(s): D64.9 - Anemia, unspecified (7) HTN (hypertension) Code(s): I10 - ESSENTIAL (PRIMARY) HYPERTENSION Qualifiers: Hypertension type: essential hypertension Qualified Code(s): I10 - Essential (primary) hypertension (8) Hypothyroidism Code(s): E03.9 - HYPOTHYROIDISM, UNSPECIFIED Qualifiers: Hypothyroidism type: unspecified Qualified Code(s): E03.9 - Hypothyroidism , unspecified (9) Multiple myeloma and immunoproliferative neoplasms Code(s): C88.8 - OTHER MALIGNANT IMMUNOPROLIFERATIVE DISEASES; C90.00 - MULTIPLE MYELOMA NOT HAVING ACHIEVED REMISSION (10) PAF (paroxysmal atrial fibrillation) Code(s): I48.0 - PAROXYSMAL ATRIAL FIBRILLATION (11) PSVT (paroxysmal supraventricular tachycardia) Code(s): I47.1 - SUPRAVENTRICULAR TACHYCARDIA (12) Perforated sigmoid colon Code(s): K63.1 - PERFORATION OF INTESTINE (NONTRAUMATIC) Assessment/Plan 1. Sepsis, GI and aspiration pneumonia r/o perforation at colostomy site s/p reop 2. Paroxysmal atrial fibrillation currently in sinus rhythm [id number] score of 3 on DOAC 3. PSVT currently in sinus rhythm post Adenosine 4. 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 Diastolic LV dysfunction with class 0 NYHA classification LV failure 6. HTN 7. Hypothyroidism 8. History of multiple myeloma with multiple rib mets and compression fractures. 9. 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 Anemia undergoing pRBC transfusion 11. History of diverticular perforation with purulent peritonitis post exploratory laparotomy and sigmoid resection/left colostomy/abdominal washout with subcutaneous air at site r/o perforation 12. 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 Right eye blindness PLAN: 1. Post op management 2. IV Cardizem or Lopressor boluses as needed pending oral intake 2. Restart anticoagulation when feasible 3. Restart cardiac medications when able to take PO 4. Revlimid held per heme/onc to resume when clinical status improves. 5. DVT and GI prophylaxis as needed 6. Wean vent as tolerated Guarded Yury Hassan MD
[2018-07-04] MEDS ORDERED: VANCOMYCIN 1 GRAM (PRE-DOCKED) 1,000 MG/250 ML BAG IVPB ONE (15:00)
--- NOTE | 2018-07-04 16:33 | PN ---
Progress Note, Physician Chief Complaint: s/p ex lap revision of ostomy, repair of perforated bowel post op day one History of Present Illness: under general anesthesia patient returned to ICU intubated on pressure support. - Current Medication List Current Medications: Active Medications Acetaminophen (Tylenol -) 325 mg PO Q6H PRN PRN Reason: PAIN LEVEL 6-10 Acetaminophen (Ofirmev Injection -) 1,000 mg IVPB Q6H PRN PRN Reason: FEVER Last Admin: 07/04/18 00:19 Dose: 1,000 mg Chlorhexidine Gluconate (Hibiclens For Decolonization -) 1 applic TP HS [facility] Last Admin: 07/03/18 22:43 Dose: 1 applic Propofol (Diprivan -) 1,000,000 mcg in 100 mls @ 2.467 mls/hr IVPB TITR [facility]; Protocol Last Titration: 07/04/18 08:45 Dose: 0 mcg/kg/min, 0 mls/hr Sodium Chloride (Normal Saline -) 1,000 mls @ 150 mls/hr IV ASDIR [facility] Last Admin: 07/04/18 07:45 Dose: 150 mls/hr Clindamycin Phosphate (Cleocin 600 Mg Premix Ivpb -) 600 mg in 50 mls @ 100 mls /hr IVPB Q6H-IV [facility]; Protocol Last Admin: 07/04/18 14:02 Dose: 100 mls/hr Metronidazole (Flagyl 500mg Premixed Ivpb -) 500 mg in 100 mls @ 100 mls/hr IVPB Q8H-IV [facility] Last Admin: 07/04/18 09:02 Dose: 100 mls/hr Piperacillin Sod/Tazobactam (Sod 4.5 gm/ Dextrose) 100 mls @ 200 mls/hr IVPB Q8H-IV [facility]; Protocol Last Admin: 07/04/18 09:02 Dose: 200 mls/hr Levothyroxine Sodium (Synthroid Injection -) 25 mcg IVPUSH DAILY@0700 [facility] Last Admin: 07/04/18 09:03 Dose: 25 mcg Magnesium Oxide (Mag-Ox -) 400 mg PO BID [facility] Last Admin: 07/04/18 09:04 Dose: Not Given Metoprolol Succinate (Toprol Xl -) 50 mg PO DAILY [facility] Metoprolol Tartrate (Lopressor Injection -) 5 mg IVPUSH Q4H PRN PRN Reason: HYPERTENSION Mupirocin (Bactroban Ointment (For Decolonization) -) 1 applic NS BID [facility] Stop: 07/08/18 09:59 Last Admin: 07/04/18 14:01 Dose: 1 applic Oxycodone HCl (Roxicodone -) 5 mg PO Q6H PRN PRN Reason: PAIN LEVEL 6-10 Pantoprazole Sodium (Protonix Iv) 40 mg IVPUSH DAILY [facility] Last Admin: 07/04/18 09:30 Dose: 40 mg Paroxetine HCl (Paxil -) 30 mg PO DAILY [facility] Last Admin: 07/04/18 09:04 Dose: Not Given Pregabalin (Lyrica -) 75 mg PO BID [facility] Last Admin: 07/04/18 09:04 Dose: Not Given Thiamine HCl (Vitamin B1 Injection -) 200 mg IVPB BID [facility] Last Admin: 07/04/18 09:31 Dose: 200 mg Valacyclovir HCl (Valtrex -) 500 mg PO BID [facility] Last Admin: 07/04/18 09:04 Dose: Not Given - Objective Vital Signs: Vital Signs Temperature 98.6 F 07/04/18 12:00 Pulse Rate 105 H 07/04/18 14:00 Respiratory Rate 30 H 07/04/18 14:00 Blood Pressure 92/71 07/04/18 14:00 O2 Sat by Pulse Oximetry (%) 98 07/04/18 11:35 Constitutional: Yes: Mild Distress Cardiovascular: Yes: Tachycardia Respiratory: Yes: Cough, Tachypnea Gastrointestinal: Yes: Distention Labs: CBC, BMP 07/04/18 05:30 07/04/18 05:30 INR, PTT INR 1.23 (0.83-1.09) H 07/03/18 11:35 Assessment/Plan Patient extubated this morning, able to express thirst, pain not excessive, no adverse effect of anesthetic noted, dept of anesthesia will sign off care at this time.
--- NOTE | 2018-07-04 18:06 | EKG ---
Test Reason : Blood Pressure : / mmHG Vent. Rate : 075 BPM Atrial Rate : 075 BPM P-R Int : 174 ms QRS Dur : 100 ms QT Int : 430 ms P-R-T Axes : 031 028 037 degrees QTc Int : 480 ms NORMAL SINUS RHYTHM PROLONGED QT ABNORMAL ECG WHEN COMPARED WITH ECG OF 03-JUL-2018 00:49, VENT. RATE HAS DECREASED BY [address] NO LONGER DEPRESSED IN ANTERIOR LEADS Confirmed by RAMO DEUTSCH MD ([id number]) on 07/04/2018 6:06:13 PM Referred By: Confirmed By:RAMO DEUTSCH MD
--- NOTE | 2018-07-04 18:18 | PN ---
Progress Note, Physician Chief Complaint: colonic perforation, s/p repair and diverting loop colostomy History of Present Illness: Patient is extubated, still drowsy c/o thirst - Current Medication List Current Medications: Active Medications Acetaminophen (Tylenol -) 325 mg PO Q6H PRN PRN Reason: PAIN LEVEL 6-10 Acetaminophen (Ofirmev Injection -) 1,000 mg IVPB Q6H PRN PRN Reason: FEVER Last Admin: 07/04/18 17:05 Dose: 1,000 mg Chlorhexidine Gluconate (Hibiclens For Decolonization -) 1 applic TP HS [facility] Last Admin: 07/03/18 22:43 Dose: 1 applic Propofol (Diprivan -) 1,000,000 mcg in 100 mls @ 2.467 mls/hr IVPB TITR [facility]; Protocol Last Titration: 07/04/18 08:45 Dose: 0 mcg/kg/min, 0 mls/hr Sodium Chloride (Normal Saline -) 1,000 mls @ 150 mls/hr IV ASDIR [facility] Last Admin: 07/04/18 16:00 Dose: 150 mls/hr Clindamycin Phosphate (Cleocin 600 Mg Premix Ivpb -) 600 mg in 50 mls @ 100 mls /hr IVPB Q6H-IV [facility]; Protocol Last Admin: 07/04/18 14:02 Dose: 100 mls/hr Metronidazole (Flagyl 500mg Premixed Ivpb -) 500 mg in 100 mls @ 100 mls/hr IVPB Q8H-IV [facility] Last Admin: 07/04/18 17:06 Dose: 100 mls/hr Piperacillin Sod/Tazobactam (Sod 4.5 gm/ Dextrose) 100 mls @ 200 mls/hr IVPB Q8H-IV [facility]; Protocol Last Admin: 07/04/18 17:06 Dose: 200 mls/hr Levothyroxine Sodium (Synthroid Injection -) 25 mcg IVPUSH DAILY@0700 [facility] Last Admin: 07/04/18 09:03 Dose: 25 mcg Magnesium Oxide (Mag-Ox -) 400 mg PO BID [facility] Last Admin: 07/04/18 09:04 Dose: Not Given Metoprolol Succinate (Toprol Xl -) 50 mg PO DAILY [facility] Metoprolol Tartrate (Lopressor Injection -) 5 mg IVPUSH Q4H PRN PRN Reason: HYPERTENSION Mupirocin (Bactroban Ointment (For Decolonization) -) 1 applic NS BID [facility] Stop: 07/08/18 09:59 Last Admin: 07/04/18 14:01 Dose: 1 applic Oxycodone HCl (Roxicodone -) 5 mg PO Q6H PRN PRN Reason: PAIN LEVEL 6-10 Pantoprazole Sodium (Protonix Iv) 40 mg IVPUSH DAILY [facility] Last Admin: 07/04/18 09:30 Dose: 40 mg Paroxetine HCl (Paxil -) 30 mg PO DAILY [facility] Last Admin: 07/04/18 09:04 Dose: Not Given Pregabalin (Lyrica -) 75 mg PO BID [facility] Last Admin: 07/04/18 09:04 Dose: Not Given Thiamine HCl (Vitamin B1 Injection -) 200 mg IVPB BID [facility] Last Admin: 07/04/18 09:31 Dose: 200 mg Valacyclovir HCl (Valtrex -) 500 mg PO BID [facility] Last Admin: 07/04/18 09:04 Dose: Not Given - Objective Vital Signs: Vital Signs Temperature 98.7 F 07/04/18 18:00 Pulse Rate 89 07/04/18 18:00 Respiratory Rate 28 H 07/04/18 18:00 Blood Pressure 95/59 L 07/04/18 18:00 O2 Sat by Pulse Oximetry (%) 98 07/04/18 11:35 Constitutional: Yes: Other (not in respiratory distress) Cardiovascular: Yes: Regular Rate and Rhythm Respiratory: Yes: Regular Gastrointestinal: Yes: Soft, Other (LLQ mucus fistula viable with no active bleeding, packing removed Colostomy viable, mild edema, empty colostomy bag) Labs: CBC, BMP 07/04/18 05:30 07/04/18 05:30 INR, PTT INR 1.23 (0.83-1.09) H 07/03/18 11:35 Problem List - Problems (1) Colostomy complication Assessment/Plan: daily LLQ mucus fistula wound care with NS irrigation and Xeroform dressing May resume clear liquids when more alert [facility] colostomy care. Code(s): K94.00 - COLOSTOMY COMPLICATION, UNSPECIFIED (2) Sepsis Assessment/Plan: conitnue ICU care per [facility] team Code(s): A41.9 - SEPSIS, UNSPECIFIED ORGANISM
[2018-07-04 19:23] VITALS: BMI 24.4
[2018-07-04] MEDS: CHLORHEXIDINE GLUCONATE 4% CLEANSER FOR DECOLONIZATION TP SCH (20:59)
[2018-07-05] MEDS ORDERED: PIPERACILLIN/TAZOBACTAM 4.5 GM VIAL IVPB ONE ×4 (01:09→17:07)
[2018-07-05] MEDS ORDERED: DEXTROSE 5%-WATER 100 ML IVPB ONE ×3 (01:09→17:06)
[2018-07-05] MEDS ORDERED: METOPROLOL TARTRATE 5 MG/5 ML VIAL IVPUSH PRN (01:09)
[2018-07-05] MEDS: PIPERACILLIN/TAZOB 4.5 GM 4.5 GM in DEXTROSE 5%-WATER 100 ML IVPB SCH ×3 (01:16→17:14)
[2018-07-05] MEDS: ACETAMINOPHEN 1000 MG/100 ML VIAL (NON FORMULARY) IVPB PRN (01:22)
[2018-07-05] MEDS: CLINDAMYCIN 600MG PREMIX IVPB 600 MG/50 ML BAG IVPB SCH ×2 (02:23→08:50)
[2018-07-05 06:04] LABS: HEMOGLOBIN 7.7 GM/dL (11.7-16.9); MCHC 30.8 g/dl (32.0-35.9); MEAN CELL VOLUME 97.3 fl (80-96); MEAN PLT VOLUME 10.7 fl (7.5-11.1); PLATELET COUNT 106 K/MM3 (134-434); RBC 2.57 M/mm3 (4.00-5.60); WHITE BLOOD COUNT 5.6 K/mm3 (4.0-10.0)
[2018-07-05 06:17] LABS: ALK PHOS 58 U/L (45-117); ANION GAP 6 MMOL/L (8-16); BILIRUBIN,TOTAL 0.6 mg/dL (0.2-1); BLOOD UREA NITROGEN 35 mg/dL (7-18); CHLORIDE 124 mmol/L (98-107); CO2 20 mmol/L (21-32); CREATININE 0.8 mg/dL (0.55-1.3); GLUCOSE,RANDOM 75 mg/dL (74-106); POTASSIUM 3.1 mmol/L (3.5-5.1); SGOT/AST 14 U/L (15-37); SGPT/ALT 16 U/L (13-61); SODIUM 150 mmol/L (136-145); TOT PROT 3.2 g/dl (6.4-8.2)
[2018-07-05 06:19] LABS: CALCIUM 6.6 mg/dL (8.5-10.1)
[2018-07-05] MEDS: METOPROLOL TARTRATE 5 MG/5 ML VIAL IVPUSH PRN ×3 (06:48→22:54)
[2018-07-05] MEDS ORDERED: PT OWN MED DRAWER 7, Y5N ONE ×2 (06:52→21:54)
[2018-07-05] MEDS: LEVOTHYROXINE SODIUM 100 MCG VIAL IVPUSH SCH (06:55)
--- NOTE | 2018-07-05 09:03 | PN ---
Progress Note (short form) - Note Progress Note: PULM/CCM Pt. Seen & Examined in the ICU. Post-Op Day #2 s/p ex lap for repair of perf bowel & revision of ostomy. Remains extubated not any pressors but lethargic & grossly V/O, paroxysmal tachycardia throughout the day & night yesterday. Sputum growing Klebsiella Oxytoca, PSA, Staph, & Yeast Active Medications Acetaminophen (Tylenol -) 325 mg PO Q6H PRN PRN Reason: PAIN LEVEL 6-10 Albuterol Sulfate (Ventolin 0.083% Nebulizer Soln -) 1 amp NEB Q4H PRN PRN Reason: SHORT OF BREATH/WHEEZING Chlorhexidine Gluconate (Hibiclens For Decolonization -) 1 applic TP HS BERE Last Admin: 07/04/18 20:59 Dose: 1 applic Furosemide (Lasix Injection -) 40 mg IVPUSH ONCE STA Stop: 07/05/18 12:38 Sodium Chloride (Normal Saline -) 1,000 mls @ 150 mls/hr IV ASDIR BERE Last Admin: 07/04/18 20:57 Dose: 150 mls/hr Clindamycin Phosphate (Cleocin 600 Mg Premix Ivpb -) 600 mg in 50 mls @ 100 mls /hr IVPB Q6H-IV BERE; Protocol Last Admin: 07/05/18 08:50 Dose: 100 mls/hr Metronidazole (Flagyl 500mg Premixed Ivpb -) 500 mg in 100 mls @ 100 mls/hr IVPB Q8H-IV BERE Last Admin: 07/05/18 10:42 Dose: 100 mls/hr Piperacillin Sod/Tazobactam (Sod 4.5 gm/ Dextrose) 100 mls @ 200 mls/hr IVPB Q8H-IV BERE; Protocol Last Admin: 07/05/18 10:10 Dose: 200 mls/hr Furosemide 100 mg/ Dextrose 100 mls @ 5 mls/hr IVPB TITR BERE Phenylephrine HCl 20,000 mcg/ (Sodium Chloride) 250 mls @ 75 mls/hr IVPB ASDIR BERE; Protocol Levothyroxine Sodium (Synthroid Injection -) 25 mcg IVPUSH DAILY@0700 [facility] Last Admin: 07/05/18 06:55 Dose: 25 mcg Magnesium Oxide (Mag-Ox -) 400 mg PO BID [facility] Last Admin: 07/05/18 09:27 Dose: Not Given Metoprolol Succinate (Toprol Xl -) 50 mg PO DAILY [facility] Last Admin: 07/05/18 09:27 Dose: Not Given Metoprolol Tartrate (Lopressor Injection -) 5 mg IVPUSH Q4H PRN PRN Reason: HYPERTENSION Last Admin: 07/05/18 06:48 Dose: 5 mg Mupirocin (Bactroban Ointment (For Decolonization) -) 1 applic NS BID [facility] Stop: 07/08/18 09:59 Last Admin: 07/05/18 09:41 Dose: 1 applic Oxycodone HCl (Roxicodone -) 5 mg PO Q6H PRN PRN Reason: PAIN LEVEL 6-10 Pantoprazole Sodium (Protonix Iv) 40 mg IVPUSH DAILY [facility] Last Admin: 07/05/18 09:35 Dose: 40 mg Paroxetine HCl (Paxil -) 30 mg PO DAILY [facility] Last Admin: 07/05/18 09:27 Dose: Not Given Pregabalin (Lyrica -) 75 mg PO BID [facility] Last Admin: 07/05/18 09:27 Dose: Not Given Thiamine HCl (Vitamin B1 Injection -) 200 mg IVPB BID [facility] Last Admin: 07/05/18 09:36 Dose: 200 mg Valacyclovir HCl (Valtrex -) 500 mg PO BID [facility] Last Admin: 07/05/18 09:28 Dose: Not Given Vital Signs Period Temp Pulse Resp BP Sys/Morejon Pulse Ox Last 24 Hr 98.1 F-98.8 F 78-147 20-30 85-112/57-76 95-100 Intake & Output 07/02/18 07/03/18 07/04/18 07/05/18 23:59 23:59 23:59 23:59 Intake Total 6050 5735.1 2200 Output Total 250 850 910 650 Balance -250 5200 4825.1 1550 Weight 63.503 kg 82.242 kg 81.647 kg GEN: Elderly man, post-Op in bed, washed out HEENT: R eye blind, L pupil is R & RL PULM: Bibasilar crackles, occ wheeze on expiration CV: nml S1 S2, irreg/irreg, unable to appreciate any G/M/R ABD: Fresh New R side colostomy, pink, productive, + BS, S/S N/T N/D X4Q EXT: + Pulses, WWPX4, + peripheral edema CBC, BMP 07/05/18 05:30 07/05/18 05:30 Microbiology 07/03/18 11:35 Sputum - Expectorated Gram Stain - Final 07/03/18 11:35 Sputum - Expectorated Sputum Culture - Preliminary Klebsiella Oxytoca Presumptive Ps Aeruginosa Staphylococcus Aureus Yeast Like Organism 07/02/18 15:22 Blood - Peripheral Venous Blood Culture - Preliminary NO GROWTH OBTAINED AFTER 48 HOURS, INCUBATION TO CONTINUE FOR 3 DAYS. 07/02/18 14:50 Blood - Peripheral Venous Blood Culture - Preliminary NO GROWTH OBTAINED AFTER 48 HOURS, INCUBATION TO CONTINUE FOR 3 DAYS. 07/02/18 23:08 Urine - Urine - Catheterized Urine Culture - Final NO GROWTH OBTAINED 07/03/18 11:35 Urine For Antigen Detection Legionella Antigen - Final 07/03/18 11:35 Urine For Antigen Detection Streptococcus pneumoniae Antigen (M - Final CXR 07/04: Since 07/02/2018 at 2157 hours, the right jugular line remains in place. New endotracheal tube is been inserted and the tip is by the clavicular heads well above the kylah. There is a progressive left infiltrate with fluid. There is a prominent mediastinum and degenerative changes. The right lung is clear. The is old rib trauma. Follow-up recommended. ASSESS: Post-Op Day #2 s/p ex lap for repair of perf bowel & revision of ostomy. 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 Right eye blindness PLAN: -NPO -Bi-Level prn to reduce WOB -Feeding Tube -ABX per ID -Strict I & O -Press for a MAP of 65 -Attempt gentle diuresis -Restart Eliquis A/p -Start trophic Feeds -Start BBs via TF -GI prophylaxis -Transfer to Med-Surg DGL, [facility] ICU PULM/CCM [id number] Critical Care Total Critical Care Time (in minutes): 38 Critical Care Statement: The care of this patient involved high complexity decision making to prevent further life threatening deterioration of the patient 's condition and/or to evaluate & treat vital organ system(s) failure or risk of failure.
[2018-07-05] MEDS: PARoxetine HCL 10 MG TABLET (FP) PO SCH (09:27)
[2018-07-05] MEDS: PREGABALIN 75 MG CAPSULE PO SCH ×2 (09:27→22:38)
[2018-07-05] MEDS: MAGNESIUM OXIDE 400 MG TABLET (FP) PO SCH ×2 (09:27→22:38)
[2018-07-05] MEDS: valACYclovir HCL 500 MG TABLET (FP) PO SCH ×2 (09:28→22:39)
[2018-07-05] MEDS: PANTOPRAZOLE SODIUM 40 MG VIAL IVPUSH SCH (09:35)
[2018-07-05] MEDS: THIAMINE HCL 200 MG/2 ML VIAL IVPB SCH ×2 (09:36→22:40)
[2018-07-05] MEDS: MUPIROCIN 2% TOPICAL OINTMENT FOR DECOLONIZATION NS SCH ×2 (09:41→22:40)
[2018-07-05] MEDS ORDERED: LACTATED RINGERS SOLUTION 1,000 ML/1,000 ML INFUS.BAG IV STA (11:38)
--- NOTE | 2018-07-05 11:59 | PN ---
Progress Note, Physician Chief Complaint: Remains in ICU extubated but lethargic Post OP #2 History of Present Illness: Patient was seen and examined in ICU. Chart was reviewed IV fluid resuscitation for low BP - Current Medication List Current Medications: Active Medications Acetaminophen (Tylenol -) 325 mg PO Q6H PRN PRN Reason: PAIN LEVEL 6-10 Chlorhexidine Gluconate (Hibiclens For Decolonization -) 1 applic TP HS BERE Last Admin: 07/04/18 20:59 Dose: 1 applic Sodium Chloride (Normal Saline -) 1,000 mls @ 150 mls/hr IV ASDIR BERE Last Admin: 07/04/18 20:57 Dose: 150 mls/hr Clindamycin Phosphate (Cleocin 600 Mg Premix Ivpb -) 600 mg in 50 mls @ 100 mls /hr IVPB Q6H-IV BERE; Protocol Last Admin: 07/05/18 08:50 Dose: 100 mls/hr Metronidazole (Flagyl 500mg Premixed Ivpb -) 500 mg in 100 mls @ 100 mls/hr IVPB Q8H-IV BERE Last Admin: 07/05/18 10:42 Dose: 100 mls/hr Piperacillin Sod/Tazobactam (Sod 4.5 gm/ Dextrose) 100 mls @ 200 mls/hr IVPB Q8H-IV BERE; Protocol Last Admin: 07/05/18 10:10 Dose: 200 mls/hr Lactated Ringer's (Lactated Ringers Solution) 1,000 ml in 1,000 mls @ 1,000 mls /hr IV ONCE STA Stop: 07/05/18 12:37 Last Admin: 07/05/18 11:38 Dose: 1,000 mls/hr Levothyroxine Sodium (Synthroid Injection -) 25 mcg IVPUSH DAILY@0700 [facility] Last Admin: 07/05/18 06:55 Dose: 25 mcg Magnesium Oxide (Mag-Ox -) 400 mg PO BID [facility] Last Admin: 07/05/18 09:27 Dose: Not Given Metoprolol Succinate (Toprol Xl -) 50 mg PO DAILY [facility] Last Admin: 07/05/18 09:27 Dose: Not Given Metoprolol Tartrate (Lopressor Injection -) 5 mg IVPUSH Q4H PRN PRN Reason: HYPERTENSION Last Admin: 07/05/18 06:48 Dose: 5 mg Mupirocin (Bactroban Ointment (For Decolonization) -) 1 applic NS BID [facility] Stop: 07/08/18 09:59 Last Admin: 07/05/18 09:41 Dose: 1 applic Oxycodone HCl (Roxicodone -) 5 mg PO Q6H PRN PRN Reason: PAIN LEVEL 6-10 Pantoprazole Sodium (Protonix Iv) 40 mg IVPUSH DAILY [facility] Last Admin: 07/05/18 09:35 Dose: 40 mg Paroxetine HCl (Paxil -) 30 mg PO DAILY [facility] Last Admin: 07/05/18 09:27 Dose: Not Given Pregabalin (Lyrica -) 75 mg PO BID [facility] Last Admin: 07/05/18 09:27 Dose: Not Given Thiamine HCl (Vitamin B1 Injection -) 200 mg IVPB BID [facility] Last Admin: 07/05/18 09:36 Dose: 200 mg Valacyclovir HCl (Valtrex -) 500 mg PO BID [facility] Last Admin: 07/05/18 09:28 Dose: Not Given - Objective Vital Signs: Vital Signs Temperature 98.3 F 07/05/18 10:00 Pulse Rate 100 H 07/05/18 11:16 Respiratory Rate 29 H 07/05/18 10:00 Blood Pressure 93/60 07/05/18 10:00 O2 Sat by Pulse Oximetry (%) 95 07/05/18 11:16 Neck: Yes: Supple Cardiovascular: Yes: Regular Rate and Rhythm, Tachycardia, S1, S2 Respiratory: Yes: Diminished Gastrointestinal: Yes: Other (Post op) Edema: Yes Edema: LLE: Trace, RLE: Trace Peripheral Pulses WNL: Yes Labs: CBC, BMP 07/05/18 05:30 07/05/18 05:30 INR, PTT INR 1.23 (0.83-1.09) H 07/03/18 11:35 Problem List - Problems (1) Abscess of colostomy Code(s): K94.02 - COLOSTOMY INFECTION (2) Colostomy complication Code(s): K94.00 - COLOSTOMY COMPLICATION, UNSPECIFIED (3) Pneumonia Code(s): J18.9 - PNEUMONIA, UNSPECIFIED ORGANISM (4) SVT (supraventricular tachycardia) Code(s): I47.1 - SUPRAVENTRICULAR TACHYCARDIA (5) Sepsis Code(s): A41.9 - SEPSIS, UNSPECIFIED ORGANISM (6) Anemia Code(s): D64.9 - ANEMIA, UNSPECIFIED Qualifiers: Anemia type: unspecified type Qualified Code(s): D64.9 - Anemia, unspecified (7) HTN (hypertension) Code(s): I10 - ESSENTIAL (PRIMARY) HYPERTENSION Qualifiers: Hypertension type: essential hypertension Qualified Code(s): I10 - Essential (primary) hypertension (8) Hypothyroidism Code(s): E03.9 - HYPOTHYROIDISM, UNSPECIFIED Qualifiers: Hypothyroidism type: unspecified Qualified Code(s): E03.9 - Hypothyroidism , unspecified (9) Multiple myeloma and immunoproliferative neoplasms Code(s): C88.8 - OTHER MALIGNANT IMMUNOPROLIFERATIVE DISEASES; C90.00 - MULTIPLE MYELOMA NOT HAVING ACHIEVED REMISSION (10) PAF (paroxysmal atrial fibrillation) Code(s): I48.0 - PAROXYSMAL ATRIAL FIBRILLATION (11) PSVT (paroxysmal supraventricular tachycardia) Code(s): I47.1 - SUPRAVENTRICULAR TACHYCARDIA (12) Perforated sigmoid colon Code(s): K63.1 - PERFORATION OF INTESTINE (NONTRAUMATIC) Assessment/Plan 1. Sepsis, GI and aspiration pneumonia r/o perforation at colostomy site s/p reop 2. Paroxysmal atrial fibrillation currently in sinus rhythm [id number] score of 3 on DOAC 3. PSVT currently in sinus rhythm post Adenosine 4. 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 Diastolic LV dysfunction with class 0 NYHA classification LV failure 6. HTN 7. Hypothyroidism 8. History of multiple myeloma with multiple rib mets and compression fractures. 9. 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 Anemia undergoing pRBC transfusion 11. History of diverticular perforation with purulent peritonitis post exploratory laparotomy and sigmoid resection/left colostomy/abdominal washout with subcutaneous air at site r/o perforation 12. 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 Right eye blindness PLAN: 1. Post op management 2. IV Cardizem or Lopressor boluses as needed pending oral intake 2. Restart anticoagulation when feasible 3. Restart cardiac medications when able to take PO 4. Revlimid held per heme/onc to resume when clinical status improves. 5. DVT and GI prophylaxis as needed 6. Fluid resuscitation and monitor renal function and urine output Guarded Yury Hassan MD
[2018-07-05] MEDS ORDERED: ALBUTEROL SO4 0.083% IH SOL 2.5 MG/3 ML VIAL.NEB. NEB PRN (12:12)
--- NOTE | 2018-07-05 12:27 | PN ---
Progress Note, Physician Chief Complaint: lethargic - Current Medication List Current Medications: Active Medications Acetaminophen (Tylenol -) 325 mg PO Q6H PRN PRN Reason: PAIN LEVEL 6-10 Albuterol Sulfate (Ventolin 0.083% Nebulizer Soln -) 1 amp NEB Q4H PRN PRN Reason: SHORT OF BREATH/WHEEZING Chlorhexidine Gluconate (Hibiclens For Decolonization -) 1 applic TP HS [facility]ERE Last Admin: 07/04/18 20:59 Dose: 1 applic Sodium Chloride (Normal Saline -) 1,000 mls @ 150 mls/hr IV ASDIR BERE Last Admin: 07/04/18 20:57 Dose: 150 mls/hr Clindamycin Phosphate (Cleocin 600 Mg Premix Ivpb -) 600 mg in 50 mls @ 100 mls /hr IVPB Q6H-IV BERE; Protocol Last Admin: 07/05/18 08:50 Dose: 100 mls/hr Metronidazole (Flagyl 500mg Premixed Ivpb -) 500 mg in 100 mls @ 100 mls/hr IVPB Q8H-IV BERE Last Admin: 07/05/18 10:42 Dose: 100 mls/hr Piperacillin Sod/Tazobactam (Sod 4.5 gm/ Dextrose) 100 mls @ 200 mls/hr IVPB Q8H-IV BERE; Protocol Last Admin: 07/05/18 10:10 Dose: 200 mls/hr Lactated Ringer's (Lactated Ringers Solution) 1,000 ml in 1,000 mls @ 1,000 mls /hr IV ONCE STA Stop: 07/05/18 12:37 Last Admin: 07/05/18 11:38 Dose: 1,000 mls/hr Levothyroxine Sodium (Synthroid Injection -) 25 mcg IVPUSH DAILY@0700 [facility] Last Admin: 07/05/18 06:55 Dose: 25 mcg Magnesium Oxide (Mag-Ox -) 400 mg PO BID [facility] Last Admin: 07/05/18 09:27 Dose: Not Given Metoprolol Succinate (Toprol Xl -) 50 mg PO DAILY [facility] Last Admin: 07/05/18 09:27 Dose: Not Given Metoprolol Tartrate (Lopressor Injection -) 5 mg IVPUSH Q4H PRN PRN Reason: HYPERTENSION Last Admin: 07/05/18 06:48 Dose: 5 mg Mupirocin (Bactroban Ointment (For Decolonization) -) 1 applic NS BID [facility] Stop: 07/08/18 09:59 Last Admin: 07/05/18 09:41 Dose: 1 applic Oxycodone HCl (Roxicodone -) 5 mg PO Q6H PRN PRN Reason: PAIN LEVEL 6-10 Pantoprazole Sodium (Protonix Iv) 40 mg IVPUSH DAILY [facility] Last Admin: 07/05/18 09:35 Dose: 40 mg Paroxetine HCl (Paxil -) 30 mg PO DAILY [facility] Last Admin: 07/05/18 09:27 Dose: Not Given Pregabalin (Lyrica -) 75 mg PO BID [facility] Last Admin: 07/05/18 09:27 Dose: Not Given Thiamine HCl (Vitamin B1 Injection -) 200 mg IVPB BID [facility] Last Admin: 07/05/18 09:36 Dose: 200 mg Valacyclovir HCl (Valtrex -) 500 mg PO BID [facility] Last Admin: 07/05/18 09:28 Dose: Not Given - Objective Vital Signs: Vital Signs Temperature 98.1 F 07/05/18 12:00 Pulse Rate 141 H 07/05/18 12:00 Respiratory Rate 28 H 07/05/18 12:00 Blood Pressure 103/76 07/05/18 12:00 O2 Sat by Pulse Oximetry (%) 95 07/05/18 11:16 Constitutional: Yes: Moderate Distress Eyes: Yes: WNL HENT: Yes: WNL Neck: Yes: WNL Cardiovascular: Yes: Tachycardia Respiratory: Yes: Rales Gastrointestinal: Yes: Normal Bowel Sounds ...Rectal Exam: Yes: Deferred Genitourinary: Yes: Vizcarra Present Edema: Yes Neurological: Yes: Lethargy Labs: CBC, BMP 07/05/18 05:30 07/05/18 05:30 INR, PTT INR 1.23 (0.83-1.09) H 07/03/18 11:35 Assessment/Plan Case discussed with ICU MD Advise NG tube feeding,reduce IV fluids Kcl replacement
[2018-07-05] MEDS ORDERED: PHENYLEPHRINE HCL 10 MG/1 ML SINGLE DOSE VIAL ONE ×3 (12:43→19:58)
[2018-07-05] MEDS: PHENYLEPHRINE HCL 20,000 MCG in SODIUM CHLORIDE 248 ML IVPB SCH ×2 (12:45→16:00)
[2018-07-05] MEDS: FUROSEMIDE INJECTION 100 MG in DEXTROSE 5%-WATER - 90 ML IVPB SCH (12:45)
[2018-07-05] MEDS: DEXTROSE 5%-WATER - 1,000 ML IV SCH (12:55)
[2018-07-05] MEDS ORDERED: FUROSEMIDE 40 MG/4 ML INJECTABLE VIAL IVPUSH STA (13:16)
--- NOTE | 2018-07-05 14:01 | PN ---
Progress Note, Physician History of Present Illness: stable tachy psot op day 3 generalized edema family in room weakness - Current Medication List Current Medications: Active Medications Acetaminophen (Tylenol -) 325 mg PO Q6H PRN PRN Reason: PAIN LEVEL 6-10 Albuterol Sulfate (Ventolin 0.083% Nebulizer Soln -) 1 amp NEB Q4H PRN PRN Reason: SHORT OF BREATH/WHEEZING Chlorhexidine Gluconate (Hibiclens For Decolonization -) 1 applic TP HS [facility] Last Admin: 07/04/18 20:59 Dose: 1 applic Sodium Chloride (Normal Saline -) 1,000 mls @ 150 mls/hr IV ASDIR [facility] Last Admin: 07/04/18 20:57 Dose: 150 mls/hr Metronidazole (Flagyl 500mg Premixed Ivpb -) 500 mg in 100 mls @ 100 mls/hr IVPB Q8H-IV [facility] Last Admin: 07/05/18 10:42 Dose: 100 mls/hr Piperacillin Sod/Tazobactam (Sod 4.5 gm/ Dextrose) 100 mls @ 200 mls/hr IVPB Q8H-IV BERE; Protocol Last Admin: 07/05/18 10:10 Dose: 200 mls/hr Furosemide 100 mg/ Dextrose 100 mls @ 5 mls/hr IVPB TITR BERE; Protocol Last Admin: 07/05/18 12:45 Dose: 5 mg/hr, 5 mls/hr Phenylephrine HCl 20,000 mcg/ (Sodium Chloride) 250 mls @ 75 mls/hr IVPB ASDIR BERE; Protocol Last Admin: 07/05/18 12:45 Dose: 100 mcg/min, 75 mls/hr Levothyroxine Sodium (Synthroid Injection -) 25 mcg IVPUSH DAILY@0700 [facility] Last Admin: 07/05/18 06:55 Dose: 25 mcg Magnesium Oxide (Mag-Ox -) 400 mg PO BID [facility] Last Admin: 07/05/18 09:27 Dose: Not Given Metoprolol Succinate (Toprol Xl -) 50 mg PO DAILY [facility] Last Admin: 07/05/18 09:27 Dose: Not Given Metoprolol Tartrate (Lopressor Injection -) 5 mg IVPUSH Q4H PRN PRN Reason: HYPERTENSION Last Admin: 07/05/18 06:48 Dose: 5 mg Mupirocin (Bactroban Ointment (For Decolonization) -) 1 applic NS BID [facility] Stop: 07/08/18 09:59 Last Admin: 07/05/18 09:41 Dose: 1 applic Oxycodone HCl (Roxicodone -) 5 mg PO Q6H PRN PRN Reason: PAIN LEVEL 6-10 Pantoprazole Sodium (Protonix Iv) 40 mg IVPUSH DAILY [facility] Last Admin: 07/05/18 09:35 Dose: 40 mg Paroxetine HCl (Paxil -) 30 mg PO DAILY [facility] Last Admin: 07/05/18 09:27 Dose: Not Given Pregabalin (Lyrica -) 75 mg PO BID [facility] Last Admin: 07/05/18 09:27 Dose: Not Given Thiamine HCl (Vitamin B1 Injection -) 200 mg IVPB BID [facility] Last Admin: 07/05/18 09:36 Dose: 200 mg Valacyclovir HCl (Valtrex -) 500 mg PO BID [facility] Last Admin: 07/05/18 09:28 Dose: Not Given - Objective Vital Signs: Vital Signs Temperature 98.1 F 07/05/18 12:00 Pulse Rate 142 H 07/05/18 12:45 Respiratory Rate 28 H 07/05/18 12:00 Blood Pressure 79/45 L 07/05/18 12:45 O2 Sat by Pulse Oximetry (%) 95 07/05/18 11:16 Constitutional: Yes: No Distress, Calm Cardiovascular: Yes: Regular Rate and Rhythm, Tachycardia Respiratory: Yes: Regular, On Nasal O2, Poor Air Entry Gastrointestinal: Yes: Soft, Hypoactive Bowel Sounds Musculoskeletal: Yes: Other Extremities: Yes: Other Edema: LUE: 2+, RUE: 2+, LLE: 2+, RLE: 2+ Neurological: Yes: Alert Psychiatric: Yes: Alert Labs: CBC, BMP 07/05/18 05:30 07/05/18 05:30 INR, PTT INR 1.23 (0.83-1.09) H 07/03/18 11:35 - ....Imaging Chest X-ray: Report Reviewed, Image Reviewed Assessment/Plan 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
[2018-07-05] MEDS ORDERED: AMIODARONE IN DEXTROSE,ISO-OSM 150 MG/100 ML BAG IVPB ONE (14:10)
[2018-07-05] MEDS ORDERED: AMIODARONE HCL 150 MG/3 ML VIAL ONE (14:13)
[2018-07-05] MEDS: oxyCODONE HCL 5 MG TABLET PO PRN (15:16)
[2018-07-05] MEDS: ACETAMINOPHEN 325 MG TABLET (FP) PO PRN (15:38)
[2018-07-05] MEDS ORDERED: ALBUMIN HUMAN 25% 12.5 GM/50 ML VIAL IVPB ONE (22:15)
[2018-07-05] MEDS: CHLORHEXIDINE GLUCONATE 4% CLEANSER FOR DECOLONIZATION TP SCH (22:39)
[2018-07-06] MEDS ORDERED: PIPERACILLIN/TAZOBACTAM 4.5 GM VIAL IVPB ONE ×3 (00:03→17:10)
[2018-07-06] MEDS ORDERED: DEXTROSE 5%-WATER 100 ML IVPB ONE ×2 (00:03→17:10)
[2018-07-06 00:26] LABS: ARTERIAL BLD GAS O2 SATURATION 97.8 % (90-98.9); ARTERIAL BLOOD GAS BASE EXCESS -6.8 meq/l (-2-2); ARTERIAL BLOOD GAS PCO2 27.3 mmHg (35-45)
[2018-07-06 00:37] LABS: ALLENS TEST POSITIVE
[2018-07-06] MEDS: PIPERACILLIN/TAZOB 4.5 GM 4.5 GM in DEXTROSE 5%-WATER 100 ML IVPB SCH ×3 (02:11→17:12)
[2018-07-06] MEDS ORDERED: FUROSEMIDE 40 MG/4 ML INJECTABLE VIAL ONE (03:38)
[2018-07-06] MEDS: FUROSEMIDE INJECTION 100 MG in DEXTROSE 5%-WATER - 90 ML IVPB SCH (03:41)
[2018-07-06] MEDS ORDERED: AMIODARONE HCL 150 MG/3 ML VIAL IVPUSH ONE (04:45)
[2018-07-06 06:29] LABS: HEMATOCRIT 29.6 % (35.4-49); HEMOGLOBIN 9.3 GM/dL (11.7-16.9); MCH 30.2 pg (25.7-33.7); MCHC 31.4 g/dl (32.0-35.9); MEAN CELL VOLUME 96.2 fl (80-96); MEAN PLT VOLUME 10.9 fl (7.5-11.1); PLATELET COUNT 105 K/MM3 (134-434); RBC 3.07 M/mm3 (4.00-5.60); RDW 21.9 % (11.9-15.9); WHITE BLOOD COUNT 4.3 K/mm3 (4.0-10.0)
[2018-07-06] MEDS: LEVOTHYROXINE SODIUM 100 MCG VIAL IVPUSH SCH (07:25)
[2018-07-06] MEDS ORDERED: PT OWN MED DRAWER 7, Y5N ONE ×6 (08:18→20:50)
--- NOTE | 2018-07-06 09:11 | PN ---
Progress Note, Physician Chief Complaint: Lethargic on bypap History of Present Illness: sepsis,CHF - Current Medication List Current Medications: Active Medications Acetaminophen (Tylenol -) 325 mg PO Q6H PRN PRN Reason: PAIN LEVEL 6-10 Last Admin: 07/05/18 15:38 Dose: 325 mg Albuterol Sulfate (Ventolin 0.083% Nebulizer Soln -) 1 amp NEB Q4H PRN PRN Reason: SHORT OF BREATH/WHEEZING Chlorhexidine Gluconate (Hibiclens For Decolonization -) 1 applic TP HS [facility] Last Admin: 07/05/18 22:39 Dose: 1 applic Metronidazole (Flagyl 500mg Premixed Ivpb -) 500 mg in 100 mls @ 100 mls/hr IVPB Q8H-IV [facility] Last Admin: 07/06/18 02:50 Dose: 100 mls/hr Piperacillin Sod/Tazobactam (Sod 4.5 gm/ Dextrose) 100 mls @ 200 mls/hr IVPB Q8H-IV [facility]ERE; Protocol Last Admin: 07/06/18 02:11 Dose: 200 mls/hr Furosemide 100 mg/ Dextrose 100 mls @ 5 mls/hr IVPB TITR BERE; Protocol Last Admin: 07/06/18 03:41 Dose: 5 mg/hr, 5 mls/hr Phenylephrine HCl 20,000 mcg/ (Sodium Chloride) 250 mls @ 75 mls/hr IVPB ASDIR BERE; Protocol Last Titration: 07/06/18 06:40 Dose: 150 mcg/min, 112.5 mls/hr Dextrose (D5w -) 1,000 mls @ 40 mls/hr IV ASDIR [facility] Last Admin: 07/05/18 12:55 Dose: 40 mls/hr Levothyroxine Sodium (Synthroid Injection -) 25 mcg IVPUSH DAILY@0700 [facility] Last Admin: 07/06/18 07:25 Dose: 25 mcg Magnesium Oxide (Mag-Ox -) 400 mg PO BID [facility] Last Admin: 07/05/18 22:38 Dose: 400 mg Metoprolol Succinate (Toprol Xl -) 50 mg PO DAILY [facility] Last Admin: 07/05/18 09:27 Dose: Not Given Metoprolol Tartrate (Lopressor Injection -) 5 mg IVPUSH Q4H PRN PRN Reason: HYPERTENSION Last Admin: 07/05/18 22:54 Dose: 5 mg Mupirocin (Bactroban Ointment (For Decolonization) -) 1 applic NS BID [facility] Stop: 07/08/18 09:59 Last Admin: 07/05/18 22:40 Dose: 1 applic Oxycodone HCl (Roxicodone -) 5 mg PO Q6H PRN PRN Reason: PAIN LEVEL 6-10 Last Admin: 07/05/18 15:16 Dose: 5 mg Pantoprazole Sodium (Protonix Iv) 40 mg IVPUSH DAILY [facility] Last Admin: 07/05/18 09:35 Dose: 40 mg Paroxetine HCl (Paxil -) 30 mg PO DAILY [facility] Last Admin: 07/05/18 09:27 Dose: Not Given Pregabalin (Lyrica -) 75 mg PO BID [facility] Last Admin: 07/05/18 22:38 Dose: 75 mg Thiamine HCl (Vitamin B1 Injection -) 200 mg IVPB BID [facility] Last Admin: 07/05/18 22:40 Dose: 200 mg Valacyclovir HCl (Valtrex -) 500 mg PO BID [facility] Last Admin: 07/05/18 22:39 Dose: 500 mg - Objective Vital Signs: Vital Signs Temperature 98.2 F 07/06/18 06:00 Pulse Rate 99 H 07/06/18 08:32 Respiratory Rate 38 H 07/06/18 08:00 Blood Pressure 102/75 07/06/18 08:00 O2 Sat by Pulse Oximetry (%) 100 07/06/18 08:32 Constitutional: Yes: Severe Distress Eyes: Yes: WNL HENT: Yes: WNL Neck: Yes: WNL Cardiovascular: Yes: Tachycardia Respiratory: Yes: Rales, Wheezes Gastrointestinal: Yes: Normal Bowel Sounds ...Rectal Exam: Yes: Deferred Edema: LUE: 1+, RUE: 1+, LLE: 1+, RLE: 1+ Neurological: Yes: Lethargy Labs: CBC, BMP 07/06/18 05:30 07/05/18 05:30 INR, PTT INR 1.23 (0.83-1.09) H 07/03/18 11:35 Assessment/Plan Case discussed with resident Will repeat chem 7
[2018-07-06] MEDS ORDERED: DEXTROSE 5%-WATER 200 ML IVPB ONE (09:41)
[2018-07-06] MEDS: PANTOPRAZOLE SODIUM 40 MG VIAL IVPUSH SCH (09:52)
[2018-07-06] MEDS: MUPIROCIN 2% TOPICAL OINTMENT FOR DECOLONIZATION NS SCH ×2 (09:53→21:18)
[2018-07-06] MEDS: THIAMINE HCL 200 MG/2 ML VIAL IVPB SCH ×2 (09:55→21:11)
[2018-07-06 10:01] LABS: ALBUMIN 1.5 g/dl (3.4-5.0); ALK PHOS 57 U/L (45-117); ANION GAP 10 MMOL/L (8-16); BLOOD UREA NITROGEN 30 mg/dL (7-18); CHLORIDE 121 mmol/L (98-107); CO2 21 mmol/L (21-32); CREATININE 0.9 mg/dL (0.55-1.3); GLUCOSE,RANDOM 81 mg/dL (74-106); SGOT/AST 15 U/L (15-37); SGPT/ALT 15 U/L (13-61); SODIUM 153 mmol/L (136-145); TOT PROT 3.6 g/dl (6.4-8.2)
[2018-07-06] MEDS: PHENYLEPHRINE HCL 20,000 MCG in SODIUM CHLORIDE 248 ML IVPB SCH ×3 (10:13→12:45)
--- NOTE | 2018-07-06 10:16 | PN ---
Progress Note (short form) - Note Progress Note: 78yo M s/p colostomy wound exploration and washout with loop transverse colostomy formation, was seen and examined at bedside. Pt still currently in the ICU. Pt continues to be lethargic and unresponsive to questions, currently on Bipap. No reported fevers or wbc. Last Vital Signs Temp Pulse Resp BP Pulse Ox 98.2 F 99 H 40 H 102/75 100 07/06/18 06:00 07/06/18 08:32 07/06/18 09:00 07/06/18 08:00 07/06/18 09:00 CBC, BMP 07/06/18 05:30 07/06/18 06:00 PE: Gen: Awake, but lethargic Resp: breathing with bipap Abd: soft, nondistended, LLQ ostomy wound is clean with no erythema and serous discharge, xeraform dressing changed. RUQ ostomy site is clean with stool in bag. Problem List - Problems (1) Abscess of colostomy Assessment/Plan: Plan -daily dressing change with saline and xeroform -continue care as per medicine -may advance to clears once cleared by medicine Code(s): K94.02 - COLOSTOMY INFECTION
[2018-07-06 10:27] LABS: CALCIUM 6.5 mg/dL (8.5-10.1); POTASSIUM 2.7 mmol/L (3.5-5.1)
[2018-07-06] MEDS: KCL 10 MEQ IVPB 10 MEQ/100 ML INFUS.BAG IVPB SCH ×4 (10:45→14:16)
[2018-07-06] MEDS: MAGNESIUM OXIDE 400 MG TABLET (FP) PO SCH ×2 (10:49→21:18)
[2018-07-06] MEDS: PREGABALIN 75 MG CAPSULE PO SCH ×2 (10:55→21:10)
[2018-07-06] MEDS: valACYclovir HCL 500 MG TABLET (FP) PO SCH ×2 (10:56→21:10)
[2018-07-06] MEDS: PARoxetine HCL 10 MG TABLET (FP) PO SCH (11:21)
[2018-07-06] MEDS: oxyCODONE HCL 5 MG TABLET PO PRN (11:22)
[2018-07-06] MEDS: ACETAMINOPHEN 325 MG TABLET (FP) PO PRN (11:22)
[2018-07-06 11:45] LABS: MAGNESIUM 1.5 mg/dL (1.8-2.4)
[2018-07-06] MEDS ORDERED: POTASSIUM CHLORIDE TABS 20 MEQ TABLET.ER (FP) PO ONE (12:06)
[2018-07-06] MEDS ORDERED: MAGNESIUM OXIDE 400 MG TABLET (FP) PO ONE (12:08)
[2018-07-06] MEDS: DEXTROSE 5%-WATER - 1,000 ML IV SCH ×2 (12:18→15:00)
--- NOTE | 2018-07-06 12:18 | PN ---
Progress Note, Physician History of Present Illness: patient looks more lethargic resp difficulty on bipap now minimally responsive condition has worsened - Current Medication List Current Medications: Active Medications Acetaminophen (Tylenol -) 325 mg PO Q6H PRN PRN Reason: PAIN LEVEL 6-10 Last Admin: 07/06/18 11:22 Dose: 325 mg Albuterol Sulfate (Ventolin 0.083% Nebulizer Soln -) 1 amp NEB Q4H PRN PRN Reason: SHORT OF BREATH/WHEEZING Chlorhexidine Gluconate (Hibiclens For Decolonization -) 1 applic TP HS BERE Last Admin: 07/05/18 22:39 Dose: 1 applic Metronidazole (Flagyl 500mg Premixed Ivpb -) 500 mg in 100 mls @ 100 mls/hr IVPB Q8H-IV BERE Last Admin: 07/06/18 10:08 Dose: 100 mls/hr Piperacillin Sod/Tazobactam (Sod 4.5 gm/ Dextrose) 100 mls @ 200 mls/hr IVPB Q8H-IV BERE; Protocol Last Admin: 07/06/18 10:04 Dose: 200 mls/hr Phenylephrine HCl 20,000 mcg/ (Sodium Chloride) 250 mls @ 75 mls/hr IVPB ASDIR BERE; Protocol Last Admin: 07/06/18 12:17 Dose: 150 mcg/min, 112.5 mls/hr Dextrose (D5w -) 1,000 mls @ 40 mls/hr IV ASDIR BERE Last Admin: 07/05/18 12:55 Dose: 40 mls/hr Potassium Chloride (Potassium Chloride 10 Meq Premix Ivpb -) 10 meq in 100 mls @ 100 mls/hr IVPB Q60M [facility] Stop: 07/06/18 15:14 Levothyroxine Sodium (Synthroid Injection -) 25 mcg IVPUSH DAILY@0700 [facility] Last Admin: 07/06/18 07:25 Dose: 25 mcg Magnesium Oxide (Mag-Ox -) 400 mg PO BID [facility] Last Admin: 07/06/18 10:49 Dose: 400 mg Metoprolol Succinate (Toprol Xl -) 50 mg PO DAILY [facility] Last Admin: 07/06/18 10:55 Dose: Not Given Metoprolol Tartrate (Lopressor Injection -) 5 mg IVPUSH Q4H PRN PRN Reason: HYPERTENSION Last Admin: 07/05/18 22:54 Dose: 5 mg Mupirocin (Bactroban Ointment (For Decolonization) -) 1 applic NS BID [facility] Stop: 07/08/18 09:59 Last Admin: 07/06/18 09:53 Dose: 1 applic Oxycodone HCl (Roxicodone -) 5 mg PO Q6H PRN PRN Reason: PAIN LEVEL 6-10 Last Admin: 07/06/18 11:22 Dose: 5 mg Pantoprazole Sodium (Protonix Iv) 40 mg IVPUSH DAILY [facility] Last Admin: 07/06/18 09:52 Dose: 40 mg Paroxetine HCl (Paxil -) 30 mg PO DAILY [facility] Last Admin: 07/06/18 11:21 Dose: 30 mg Pregabalin (Lyrica -) 75 mg PO BID [facility] Last Admin: 07/06/18 10:55 Dose: Not Given Thiamine HCl (Vitamin B1 Injection -) 200 mg IVPB BID [facility] Last Admin: 07/06/18 09:55 Dose: 200 mg Valacyclovir HCl (Valtrex -) 500 mg PO BID [facility] Last Admin: 07/06/18 10:56 Dose: Not Given - Objective Vital Signs: Vital Signs Temperature 98.2 F 07/06/18 10:00 Pulse Rate 103 H 07/06/18 12:17 Respiratory Rate 35 H 07/06/18 10:00 Blood Pressure 112/78 07/06/18 12:17 O2 Sat by Pulse Oximetry (%) 95 07/06/18 10:46 Constitutional: Yes: Other Cardiovascular: Yes: Regular Rate and Rhythm, Tachycardia Respiratory: Yes: On BiPap, Poor Air Entry Gastrointestinal: Yes: Soft, Hypoactive Bowel Sounds, Other (colostomy site looks good) Musculoskeletal: Yes: Other Edema: LLE: 2+, RLE: 2+ Neurological: Yes: Other (lethargic) Labs: CBC, BMP 07/06/18 05:30 07/06/18 06:00 INR, PTT INR 1.23 (0.83-1.09) H 07/03/18 11:35 Assessment/Plan 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
[2018-07-06] MEDS ORDERED: VANCOMYCIN 1,250 MG in DEXTROSE 5%-WATER - 250 ML IVPB ONE (12:45)
--- NOTE | 2018-07-06 12:55 | PN ---
Teaching Attending Note Name of Resident: Aldo Dean ATTENDING PHYSICIAN STATEMENT I saw and evaluated the patient. I reviewed the resident's note and discussed the case with the resident. I agree with the resident's findings and plan as documented. SUBJECTIVE: Patient seen and examined in the ICU. Post-Op Day #3 Ex lap for repair of perforated bowel & revision of ostomy. Currently on NIPPV for respiratory support. Poorly responsive. Noted on Phenylephrine drip and Lasix drip. CXR: increased RLL > LLL opacification Intake & Output 07/03/18 07/04/18 07/05/18 07/06/18 23:59 23:59 23:59 23:59 Intake Total 6050 5735.1 4471 1242 Output Total 081 258 0569 1300 Balance 5200 4825.1 1621 -58 Weight 181 lb 5 oz 180 lb 201 lb 8 oz Last Vital Signs Temp Pulse Resp BP Pulse Ox 98.2 F 103 H 37 H 112/78 95 07/06/18 10:00 07/06/18 12:17 07/06/18 12:00 07/06/18 12:17 07/06/18 10:46 Active Medications Acetaminophen (Tylenol -) 325 mg PO Q6H PRN PRN Reason: PAIN LEVEL 6-10 Last Admin: 07/06/18 11:22 Dose: 325 mg Albuterol Sulfate (Ventolin 0.083% Nebulizer Soln -) 1 amp NEB Q4H PRN PRN Reason: SHORT OF BREATH/WHEEZING Chlorhexidine Gluconate (Hibiclens For Decolonization -) 1 applic TP HS BERE Last Admin: 07/05/18 22:39 Dose: 1 applic Metronidazole (Flagyl 500mg Premixed Ivpb -) 500 mg in 100 mls @ 100 mls/hr IVPB Q8H-IV BERE Last Admin: 07/06/18 10:08 Dose: 100 mls/hr Piperacillin Sod/Tazobactam (Sod 4.5 gm/ Dextrose) 100 mls @ 200 mls/hr IVPB Q8H-IV BERE; Protocol Last Admin: 07/06/18 10:04 Dose: 200 mls/hr Phenylephrine HCl 20,000 mcg/ (Sodium Chloride) 250 mls @ 75 mls/hr IVPB ASDIR BERE; Protocol Last Admin: 07/06/18 12:45 Dose: Not Given Dextrose (D5w -) 1,000 mls @ 40 mls/hr IV ASDIR [facility] Last Admin: 07/06/18 12:18 Dose: 40 mls/hr Potassium Chloride (Potassium Chloride 10 Meq Premix Ivpb -) 10 meq in 100 mls @ 100 mls/hr IVPB Q60M [facility] Stop: 07/06/18 15:14 Vancomycin HCl 1,250 mg/ (Dextrose) 250 mls @ 166.667 mls/hr IVPB ONCE ONE; Protocol Stop: 07/06/18 14:14 Levothyroxine Sodium (Synthroid Injection -) 25 mcg IVPUSH DAILY@0700 [facility] Last Admin: 07/06/18 07:25 Dose: 25 mcg Magnesium Oxide (Mag-Ox -) 400 mg PO BID [facility] Last Admin: 07/06/18 10:49 Dose: 400 mg Metoprolol Succinate (Toprol Xl -) 50 mg PO DAILY [facility] Last Admin: 07/06/18 10:55 Dose: Not Given Metoprolol Tartrate (Lopressor Injection -) 5 mg IVPUSH Q4H PRN PRN Reason: HYPERTENSION Last Admin: 07/05/18 22:54 Dose: 5 mg Mupirocin (Bactroban Ointment (For Decolonization) -) 1 applic NS BID [facility] Stop: 07/08/18 09:59 Last Admin: 07/06/18 09:53 Dose: 1 applic Oxycodone HCl (Roxicodone -) 5 mg PO Q6H PRN PRN Reason: PAIN LEVEL 6-10 Last Admin: 07/06/18 11:22 Dose: 5 mg Pantoprazole Sodium (Protonix Iv) 40 mg IVPUSH DAILY [facility] Last Admin: 07/06/18 09:52 Dose: 40 mg Paroxetine HCl (Paxil -) 30 mg PO DAILY [facility] Last Admin: 07/06/18 11:21 Dose: 30 mg Pregabalin (Lyrica -) 75 mg PO BID [facility] Last Admin: 07/06/18 10:55 Dose: Not Given Thiamine HCl (Vitamin B1 Injection -) 200 mg IVPB BID [facility] Last Admin: 07/06/18 09:55 Dose: 200 mg Valacyclovir HCl (Valtrex -) 500 mg PO BID [facility] Last Admin: 07/06/18 10:56 Dose: Not Given GEN: Lethargic on NIPPV support HEENT: R eye blind PULM: Bibasilar crackles, no wheeze CV: S1 S2, AFib ABD: colostomy intact, (+) BS, ND, NT EXT: + Pulses, WWPX4, + peripheral edema Laboratory Results - last 24 hr 07/03/18 07/06/18 07/06/18 07:37 00:11 05:30 WBC 4.3 RBC 3.07 L Hgb 9.3 L Hct 29.6 L D MCV 96.2 H MCH 30.2 MCHC 31.4 L RDW 21.9 H Plt Count 105 L MPV 10.9 PTT (Actin FS) Anticoagulation Therapy No Result Required. Puncture Site Left radial ABG pH 7.40 ABG pCO2 at Pt Temp 27.3 L D ABG pO2 at Pt Temp 127.0 H D ABG HCO3 16.6 L ABG O2 Sat (Measured) 97.8 ABG O2 Content 12.7 L ABG Base Excess -6.8 L Red Test Positive O2 Delivery Device No Result Required. Oxygen Flow Rate 50 Vent Mode No Result Required. Vent Rate 14 Mechanical Rate No Result Required. PEEP 5.0 Pressure Support Vent 10 Sodium Potassium Chloride Carbon Dioxide Anion Gap BUN Creatinine Creat Clearance w eGFR Random Glucose Calcium Magnesium Total Bilirubin AST ALT Alkaline Phosphatase Total Protein Albumin Blood Type O POSITIVE Antibody Screen Negative Crossmatch See Detail Crossmatch IS Only See Detail 07/06/18 07/06/18 05:30 06:00 WBC RBC Hgb Hct MCV MCH MCHC RDW Plt Count MPV PTT (Actin FS) 48.7 H Anticoagulation Therapy Puncture Site ABG pH ABG pCO2 at Pt Temp ABG pO2 at Pt Temp ABG HCO3 ABG O2 Sat (Measured) ABG O2 Content ABG Base Excess Red Test O2 Delivery Device Oxygen Flow Rate Vent Mode Vent Rate Mechanical Rate PEEP Pressure Support Vent Sodium 153 H Potassium 2.7 L* Chloride 121 H Carbon Dioxide 21 Anion Gap 10 BUN 30 H Creatinine 0.9 Creat Clearance w eGFR > 60 Random Glucose 81 Calcium 6.5 L* Magnesium 1.5 L Total Bilirubin 1.0 AST 15 ALT 15 Alkaline Phosphatase 57 Total Protein 3.6 L Albumin 1.5 L Blood Type Antibody Screen Crossmatch Crossmatch IS Only ASSESS: Post-Op Day #3 s/p ex lap for repair of perf bowel & revision of ostomy. 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
--- NOTE | 2018-07-06 14:05 | ECHO ---
Name: GIUSEPPE ZAVALA Exam:Adult Echocardiogram Study Date: 07/06/2018 10:19 AM Age: 78 yrs Reason For Study: evaluate for abnormalities, a fib Height: 72 in Weight: 181 lb BSA: 2.0 m2 MMode/2D Measurements & Calculations ACS: 2.2 cm Doppler Measurements & Calculations MV E max homer: 45.4 cm/sec Ao V2 max: 80.8 cm/sec MV A max homer: 94.8 cm/sec Ao max P.6 mmHg MV E/A: 0.48 Ao V2 mean: 55.4 cm/sec Ao mean P.4 mmHg Ao V2 VTI: 10.7 cm MR max homer: 403.9 cm/sec TR max homer: 251.9 cm/sec MR max P.2 mmHg TR max P.5 mmHg Procedure A complete two-dimensional transthoracic echocardiogram was performed (2D, M-mode, Doppler and color flow Doppler). Technically limited study. Left Ventricle The left ventricle is normal in size. Left ventricular systolic function is normal. Ejection Fraction = 60- 65%. No regional wall motion abnormalities noted. Right Ventricle The right ventricle is not well visualized. Atria The left atrium is not well visualized. Right atrium not well visualized. Mitral Valve The mitral valve is normal in structure and function. There is no mitral regurgitation noted. Tricuspid Valve The tricuspid valve is normal in structure and function. No tricuspid regurgitation. Aortic Valve The aortic valve is normal in structure and function. No aortic regurgitation is present. Pulmonic Valve The pulmonic valve is not well visualized. Great Vessels The aortic root is normal size. Pericardium/Pleura There is no pericardial effusion. Interpretation Summary Technically limited study The left ventricle is normal in size. Left ventricular systolic function is normal. No regional wall motion abnormalities noted. No significant valvular regurgitations are seen There is no pericardial effusion. Previous study is not available for comparison Yury Hassan MD 07/06/2018 02:05 PM
[2018-07-06] MEDS ORDERED: POTASSIUM CHLORIDE 20 MEQ PREMIX IVPB 100 ML IVPB ONE (15:34)
[2018-07-06] MEDS ORDERED: KCL 20 MEQ PREMIX BAG 100 ML IVPB ONE (16:00)
[2018-07-06] MEDS ORDERED: ACETAMINOPHEN 1000 MG/100 ML VIAL (NON FORMULARY) IVPB ONE (16:34)
--- NOTE | 2018-07-06 16:34 | PN ---
Progress Note, Physician History of Present Illness: Post-Op Day #3 Ex lap for repair of perforated bowel & revision of ostomy. Currently on NIPPV for respiratory support. Poorly responsive. Remains on Phenylephrine drip and d/kings Lasix drip. - Current Medication List Current Medications: Active Medications Acetaminophen (Tylenol -) 325 mg PO Q6H PRN PRN Reason: PAIN LEVEL 6-10 Last Admin: 07/06/18 11:22 Dose: 325 mg Albuterol Sulfate (Ventolin 0.083% Nebulizer Soln -) 1 amp NEB Q4H PRN PRN Reason: SHORT OF BREATH/WHEEZING Chlorhexidine Gluconate (Hibiclens For Decolonization -) 1 applic TP HS BERE Last Admin: 07/05/18 22:39 Dose: 1 applic Metronidazole (Flagyl 500mg Premixed Ivpb -) 500 mg in 100 mls @ 100 mls/hr IVPB Q8H-IV [facility] Last Admin: 07/06/18 10:08 Dose: 100 mls/hr Piperacillin Sod/Tazobactam (Sod 4.5 gm/ Dextrose) 100 mls @ 200 mls/hr IVPB Q8H-IV BERE; Protocol Last Admin: 07/06/18 10:04 Dose: 200 mls/hr Phenylephrine HCl 20,000 mcg/ (Sodium Chloride) 250 mls @ 75 mls/hr IVPB ASDIR BERE; Protocol Last Titration: 07/06/18 14:54 Dose: 75 mcg/min, 56.25 mls/hr Dextrose (D5w -) 1,000 mls @ 40 mls/hr IV ASDIR BERE Last Admin: 07/06/18 12:18 Dose: 40 mls/hr Potassium Chloride (Potassium Chloride 20 Meq Premix Ivpb -) 100 mls @ 100 mls/ hr IVPB ONCE ONE Stop: 07/06/18 16:59 Levothyroxine Sodium (Synthroid Injection -) 25 mcg IVPUSH DAILY@0700 [facility] Last Admin: 07/06/18 07:25 Dose: 25 mcg Magnesium Oxide (Mag-Ox -) 400 mg PO BID [facility] Last Admin: 07/06/18 10:49 Dose: 400 mg Metoprolol Succinate (Toprol Xl -) 50 mg PO DAILY [facility] Last Admin: 07/06/18 10:55 Dose: Not Given Metoprolol Tartrate (Lopressor Injection -) 5 mg IVPUSH Q4H PRN PRN Reason: HYPERTENSION Last Admin: 07/05/18 22:54 Dose: 5 mg Mupirocin (Bactroban Ointment (For Decolonization) -) 1 applic NS BID [facility] Stop: 07/08/18 09:59 Last Admin: 07/06/18 09:53 Dose: 1 applic Oxycodone HCl (Roxicodone -) 5 mg PO Q6H PRN PRN Reason: PAIN LEVEL 6-10 Last Admin: 07/06/18 11:22 Dose: 5 mg Pantoprazole Sodium (Protonix Iv) 40 mg IVPUSH DAILY [facility] Last Admin: 07/06/18 09:52 Dose: 40 mg Paroxetine HCl (Paxil -) 30 mg PO DAILY [facility] Last Admin: 07/06/18 11:21 Dose: 30 mg Pregabalin (Lyrica -) 75 mg PO BID [facility] Last Admin: 07/06/18 10:55 Dose: Not Given Thiamine HCl (Vitamin B1 Injection -) 200 mg IVPB BID [facility] Last Admin: 07/06/18 09:55 Dose: 200 mg Valacyclovir HCl (Valtrex -) 500 mg PO BID [facility] Last Admin: 07/06/18 10:56 Dose: Not Given - Objective Vital Signs: Vital Signs Temperature 99.1 F 07/06/18 14:00 Pulse Rate 142 H 07/06/18 14:54 Respiratory Rate 34 H 07/06/18 14:00 Blood Pressure 101/68 07/06/18 14:54 O2 Sat by Pulse Oximetry (%) 95 07/06/18 14:41 Constitutional: Yes: No Distress, Calm Neck: Yes: Supple Cardiovascular: Yes: Regular Rate and Rhythm Respiratory: Yes: Regular, Diminished, On BiPap Gastrointestinal: Yes: Soft, Hypoactive Bowel Sounds Edema: No Labs: CBC, BMP 07/06/18 05:30 07/06/18 06:00 INR, PTT INR 1.23 (0.83-1.09) H 07/03/18 11:35 - ....Imaging Chest X-ray: Report Reviewed (CXR: increased RLL > LLL opacification) Problem List - Problems (1) Colostomy complication Code(s): K94.00 - COLOSTOMY COMPLICATION, UNSPECIFIED (2) SVT (supraventricular tachycardia) Code(s): I47.1 - SUPRAVENTRICULAR TACHYCARDIA (3) Severe sepsis Code(s): A41.9 - SEPSIS, UNSPECIFIED ORGANISM; R65.20 - SEVERE SEPSIS WITHOUT SEPTIC SHOCK (4) Anticoagulant long-term use Code(s): Z79.01 - PRISON (CURRENT) USE OF ANTICOAGULANTS (5) CAD (coronary artery disease) Code(s): I25.10 - ATHSCL HEART DISEASE OF [place] CORONARY ARTERY W/O ANG PCTRS Qualifiers: Coronary Disease-Associated Artery/Lesion type: [place] artery [place] vs. transplanted heart: [place] heart Associated angina: without angina Qualified Code(s): I25.10 - Atherosclerotic heart disease of [place] coronary artery without angina pectoris (6) History of open sigmoidectomy Code(s): Z98.89 - OTHER SPECIFIED POSTPROCEDURAL STATES * DO NOT USE * (7) Hypothyroidism Code(s): E03.9 - HYPOTHYROIDISM, UNSPECIFIED Qualifiers: Hypothyroidism type: unspecified Qualified Code(s): E03.9 - Hypothyroidism , unspecified (8) Paroxysmal A-fib Code(s): I48.0 - PAROXYSMAL ATRIAL FIBRILLATION Assessment/Plan 07/06/2018 Echo: Normal biventricular size and fxn without sig valve abnl 1. Septic shock and aspiration pneumonia Post-Op Day #3 Ex lap for repair of perforated bowel & revision of ostomy. 2. Paroxysmal atrial fibrillation currently in sinus rhythm [id number] score of 3 on DOAC 3. PSVT currently in sinus rhythm post Adenosine 4. 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 Diastolic LV dysfunction with class 0 NYHA classification LV failure 6. HTN 7. Hypothyroidism 8. History of multiple myeloma with multiple rib mets and compression fractures. 9. 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 Anemia undergoing pRBC transfusion 11. History of diverticular perforation with purulent peritonitis post exploratory laparotomy and sigmoid resection/left colostomy/abdominal washout with POD#3 revision 12. 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 Right eye blindness PLAN: 1. NIPPV for WOB, BD, enteral feeds, replete K 2. Wean pressors to maintain MAP>65 mHg 3. Restart anticoagulation when feasible 4. Amio for rate-control 5. Fluid resuscitation and monitor renal function and urine output 6. DVT and GI prophylaxis as needed
--- NOTE | 2018-07-06 16:38 | PN ---
Physical Exam: SUBJECTIVE: Patient seen and examined at bedside. Post-Op Day #3 Ex lap for repair of perforated bowel & revision of ostomy. Currently on NIPPV for respiratory support. Minimal responsive. Noted on Phenylephrine drip and Lasix drip. 50% O2, 10I/4E, 14RR. yesterday CVP 5, received 1L LR CXR: increased RLL > LLL opacification OBJECTIVE: Vital Signs Period Temp Pulse Resp BP Sys/[place] Pulse Ox Last 24 Hr 97.2 F-99.4 F 91-150 31-40 88-130/61-87 95-100 GENERAL: The patient is frail, Lethargic on NIPPV support HEENT: Left-sided facial droop. R eye blind dry MM LUNGS: bibasilr crackles HEART: irregular irregular, S1, S2 without murmur, rub or gallop. ABDOMEN: No crepitus appreciated around Colostomy site, NTND BS+, LLQ ostomy wound is clean with no erythema and serous discharge, RUQ ostomy site is clean with stool in bag. EXTREMITIES: 2+ dorsal pedal pulses, warm, well-perfused. + peripheral edema. NEUROLOGICAL: frail, Lethargic SKIN: Warm, dry, no erythema, discharge or purulence from colostomy site. Laboratory Results - last 24 hr 07/03/18 07/06/18 07/06/18 07:37 00:11 05:30 WBC 4.3 RBC 3.07 L Hgb 9.3 L Hct 29.6 L D MCV 96.2 H MCH 30.2 MCHC 31.4 L RDW 21.9 H Plt Count 105 L MPV 10.9 PTT (Actin FS) Anticoagulation Therapy No Result Required. Puncture Site Left radial ABG pH 7.40 ABG pCO2 at Pt Temp 27.3 L D ABG pO2 at Pt Temp 127.0 H D ABG HCO3 16.6 L ABG O2 Sat (Measured) 97.8 ABG O2 Content 12.7 L ABG Base Excess -6.8 L Red Test Positive O2 Delivery Device No Result Required. Oxygen Flow Rate 50 Vent Mode No Result Required. Vent Rate 14 Mechanical Rate No Result Required. PEEP 5.0 Pressure Support Vent 10 Sodium Potassium Chloride Carbon Dioxide Anion Gap BUN Creatinine Creat Clearance w eGFR Random Glucose Calcium Magnesium Total Bilirubin AST ALT Alkaline Phosphatase Total Protein Albumin Blood Type O POSITIVE Antibody Screen Negative Crossmatch See Detail Crossmatch IS Only See Detail 07/06/18 07/06/18 05:30 06:00 WBC RBC Hgb Hct MCV MCH MCHC RDW Plt Count MPV PTT (Actin FS) 48.7 H Anticoagulation Therapy Puncture Site ABG pH ABG pCO2 at Pt Temp ABG pO2 at Pt Temp ABG HCO3 ABG O2 Sat (Measured) ABG O2 Content ABG Base Excess Red Test O2 Delivery Device Oxygen Flow Rate Vent Mode Vent Rate Mechanical Rate PEEP Pressure Support Vent Sodium 153 H Potassium 2.7 L* Chloride 121 H Carbon Dioxide 21 Anion Gap 10 BUN 30 H Creatinine 0.9 Creat Clearance w eGFR > 60 Random Glucose 81 Calcium 6.5 L* Magnesium 1.5 L Total Bilirubin 1.0 AST 15 ALT 15 Alkaline Phosphatase 57 Total Protein 3.6 L Albumin 1.5 L Blood Type Antibody Screen Crossmatch Crossmatch IS Only Active Medications Generic Name Dose Route Start Last Admin Trade Name Freq PRN Reason Stop Dose Admin Acetaminophen 325 mg 07/03/18 20:47 07/06/18 11:22 Tylenol - PO 325 mg Q6H PRN Administration PAIN LEVEL 6-10 Albuterol Sulfate 1 amp 07/05/18 12:12 Ventolin 0.083% Nebulizer Soln - NEB Q4H PRN SHORT OF BREATH/WHEEZING Chlorhexidine Gluconate 1 applic 07/03/18 22:00 07/05/18 22:39 Hibiclens For Decolonization - TP 1 applic HS BERE Administration Metronidazole 500 mg in 100 mls @ 100 mls/hr 07/04/18 02:00 07/06/18 10:08 Flagyl 500mg Premixed Ivpb - IVPB 100 mls/hr Q8H-IV BERE Administration Piperacillin Sod/Tazobactam 100 mls @ 200 mls/hr 07/04/18 02:00 07/06/18 10: 04 Sod 4.5 gm/ Dextrose IVPB 200 mls/hr Q8H-IV BERE Administration Protocol Phenylephrine HCl 20,000 mcg/ 250 mls @ 75 mls/hr 07/05/18 12:45 07/06/18 14: 54 Sodium Chloride IVPB 75 mcg/min ASDIR BERE 56.25 mls/hr Titration Protocol 100 MCG/MIN Dextrose 1,000 mls @ 40 mls/hr 07/05/18 15:00 07/06/18 12:18 D5w - IV 40 mls/hr ASDIR BERE Administration Potassium Chloride 100 mls @ 100 mls/hr 07/06/18 16:00 Potassium Chloride 20 Meq Premix Ivpb - IVPB 07/06/18 16:59 ONCE ONE Levothyroxine Sodium 25 mcg 07/04/18 07:00 07/06/18 07:25 Synthroid Injection - IVPUSH 25 mcg DAILY@0700 BERE Administration Magnesium Oxide 400 mg 07/03/18 22:00 07/06/18 10:49 Mag-Ox - PO 400 mg BID BERE Administration Metoprolol Succinate 50 mg 07/05/18 10:00 07/06/18 10:55 Toprol Xl - PO Not Given DAILY BERE Metoprolol Tartrate 5 mg 07/03/18 20:47 07/05/18 22:54 Lopressor Injection - IVPUSH 5 mg Q4H PRN Administration HYPERTENSION Mupirocin 1 applic 07/03/18 22:00 07/06/18 09:53 Bactroban Ointment (For Decolonization) - NS 07/08/18 09:59 1 applic BID BERE Administration Oxycodone HCl 5 mg 07/03/18 20:47 07/06/18 11:22 Roxicodone - PO 5 mg Q6H PRN Administration PAIN LEVEL 6-10 Pantoprazole Sodium 40 mg 07/04/18 10:00 07/06/18 09:52 Protonix Iv IVPUSH 40 mg DAILY BERE Administration Paroxetine HCl 30 mg 07/04/18 10:00 07/06/18 11:21 Paxil - PO 30 mg DAILY BERE Administration Pregabalin 75 mg 07/03/18 22:00 07/06/18 10:55 Lyrica - PO Not Given BID BERE Thiamine HCl 200 mg 07/03/18 22:00 07/06/18 09:55 Vitamin B1 Injection - IVPB 200 mg BID BERE Administration Valacyclovir HCl 500 mg 07/03/18 22:00 07/06/18 10:56 Valtrex - PO Not Given BID [facility] ASSESSMENT/PLAN: 78M w/ PMHx. of Multiple Myeloma, Hypothyroidism, DM, HTN, Paroxysmal A.Fib (on Eliquis), GERD, R. 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 states 6 months) admitted for severe sepsis 2/2 HCAP. Post-Op Day #3 Ex lap for repair of perforated bowel & revision of ostomy. Currently on NIPPV for respiratory support. #Infectious Disease -Severe sepsis 2/2 HCAP vs. vs intra-abdominal infection ID Consult Dr. Yee appreciated Received Zosyn and Vancomycin in the ED c/w Flagyl and Zosyn day 3 BCx. and Ucx neg - SCx. pos staph A, kleb O, yeast, acineobacter would consider adding wound cultures LA: 2.2-->1.6 Legionella - neg #Cardiology/Resp Currently on NIPPV for respiratory support. 50% O2, 10I/4E, 14RR. Minimal responsive. yesterday CVP 5, received 1L LR, noted today w/ worsening CXR showing increased RLL > LLL opacification, likely ARDS clinical picture . will not increase fluid rate (D5W 40cc) but will also hold Lasix drip to keep MAP =/>65. c/w Phenylephrine drip which was ordered by [facility] over the weekend, will discuss the possibility of switching to levo as would be a more appropriate pressor in the setting of sepsis -SVT Pt. did not respond to Adenosine 6, responded to Amiodarone 150 x1 dose and IVF Cardiology consulted (Dr. Tejeda) appreciated -A.fib c/w Metoprolol, MAP is =/>65 Hold Eliguis, Lopressor 5 mg IVP PRN monitor on telemetry -HTN Hold Diovan 160mg Hold Norvasc #Gastroenterology Post-Op Day #3 Ex lap for repair of perforated bowel & revision of ostomy. Surgery consult (Dr. Jeffrey and Dr. Treviño) appreciated Pt. is s/p colostomy relocation and debridement. Pt. had disimpacted stool at the colostomy site, no sign of gross infection or necrosis. CT A/P showed air in superficial skin and ostomy, b/l lower lobe infiltrates, severe diffuse osseous demineralizations, chronic multi-level thoracolumbar compression fractures. c/w Protonix 40mg IVP #Endocrine -Hypothyroidism start Synthroid 25mcg IVP (PO to IV conversion for Synthroid is 2:1- verified with Pharmacy) Hold home Synthroid 50mg PO #Urology -BPH Vizcarra paxil home dose #DVT Ppx -AC when cleared #F/E/N -c/w NS @ 150 -monitor electrolytes and replete as needed -Enteral feeds as tolerated #Dispo -Pt comes from [facility] -Full Code; pt's daughter who HCP, has clearly expressed that she wants pt full code Visit type - Emergency Visit Emergency Visit: Yes ED Registration Date: 07/03/18 Care time: The patient presented to the Emergency Department on the above date and was hospitalized for further evaluation of their emergent condition. - New Patient This patient is new to me today: Yes Date on this admission: 07/06/18 - Critical Care Critical Care patient: Yes Total Critical Care Time (in minutes): 40 Critical Care Statement: The care of this patient involved high complexity decision making to prevent further life threatening deterioration of the patient 's condition and/or to evaluate & treat vital organ system(s) failure or risk of failure.
[2018-07-06 18:17] VITALS: TEMP 99.1
[2018-07-06 20:04] LABS: ANION GAP 11 MMOL/L (8-16); BLOOD UREA NITROGEN 32 mg/dL (7-18); CHLORIDE 118 mmol/L (98-107); CO2 18 mmol/L (21-32); CREATININE 1.1 mg/dL (0.55-1.3); GLUCOSE,RANDOM 148 mg/dL (74-106); SODIUM 147 mmol/L (136-145)
[2018-07-06 20:08] LABS: CALCIUM 6.5 mg/dL (8.5-10.1)
[2018-07-06] MEDS ORDERED: KCL 10 MEQ IVPB 10 MEQ/100 ML INFUS.BAG IVPB SCH ×2 (20:15→21:45)
--- NOTE | 2018-07-06 20:26 | PN ---
Progress Note (short form) - Note Progress Note: Patient tachypneic on BIPAP On high dose phenylephrine Abdomen is soft, colostomy with stool and gas in the bag. Mucus fistula edematous, no purulent discharge around the stoma, + fat necrosis , stoma partially disimpacted of hard stool A/P: perforated colon at ostomy site, sepsis/septic shock, prognosis gaurded continue ICU care, mucus fistula daily wound irrigation and xeroform dressing. Problem List - Problems (1) Colostomy complication Code(s): K94.00 - COLOSTOMY COMPLICATION, UNSPECIFIED (2) Sepsis Code(s): A41.9 - SEPSIS, UNSPECIFIED ORGANISM
--- NOTE | 2018-07-06 20:28 | PN ---
Progress Note (short form) - Note Progress Note: Patient seen and examined at bedside with Surgeon, Dr. Treviño. Patient was disimpacted from LLQ ostomy wound by Dr. Treviño. Will irrigate around the wound Also Notified by RN that patient is having low blood pressure with Map between 65-81 and BP around 70's/50's, as well as tachypneic on BIPAP with low threshold for intubation. Patient currently on max Phenylephrine. Will likely require a second pressor, likely Levophed in the setting of sepsis. Will get an ABG
[2018-07-06] MEDS ORDERED: PHENYLEPHRINE HCL 10 MG/1 ML SINGLE DOSE VIAL ONE (20:49)
[2018-07-06] MEDS: CHLORHEXIDINE GLUCONATE 4% CLEANSER FOR DECOLONIZATION TP SCH (21:17)
[2018-07-06] MEDS ORDERED: VASOPRESSIN 20 UNITS/ML VIAL IV ONE (21:45)
[2018-07-06] MEDS ORDERED: NOREPINEPHRINE BITARTRATE 4 MG/4 ML ML IV ONE (22:10)
[2018-07-06] MEDS ORDERED: ETOMIDATE 20 MG/10 ML AMPUL IVPUSH ONE (22:10)
[2018-07-06] MEDS ORDERED: MIDAZOLAM HCL 5 MG/1 ML Single Dose Vial ONE (22:11)
[2018-07-06] MEDS ORDERED: SUCCINYLCHOLINE CHLORIDE 200 MG/10 ML VIAL ONE (22:12)
[2018-07-06] MEDS ORDERED: ATROPINE SULFATE 1 MG/10 ML DISP.SYRIN ONE (22:55)
[2018-07-06] MEDS ORDERED: MAGNESIUM SULF 50% (8.12 MEQ/2 ML-1 GM VIAL) ONE (23:06)
[2018-07-06] MEDS ORDERED: EPINEPHrine 1:10,000 (P-F SYR) 1 MG/10 ML DISP.SYRIN ONE (23:13)
--- NOTE | 2018-07-06 23:31 | RAPID ---
<Vesna Barnes - Last Filed: 07/07/18 03:45> Physical Examination Vital Signs: Vital Signs Temperature 99.1 F 07/06/18 18:00 Pulse Rate 115 H 07/06/18 18:00 Respiratory Rate 34 H 07/06/18 18:00 Blood Pressure 86/57 L 07/06/18 18:00 O2 Sat by Pulse Oximetry (%) 93 L 07/06/18 21:29 Findings/Remarks: CODE 99 Code 99 called over head at 11 pm. ACLS protocol initated upon arrival by ICU team. before hand patient patient admitted for suspected bilateral pneumonia, recently intubated. Code began at 11 pm. Code followed per ACLS protocol, see code sheet for further detail. patient did not achieve ROSC, patient pronounced at 11:17 pm. Labs: CBC, BMP 07/06/18 05:30 07/06/18 18:00 <Emeterio Rapp - Last Filed: 07/12/18 19:10> Physical Examination Vital Signs: Vital Signs Temperature 99.1 F 07/06/18 18:00 Pulse Rate 56 L 07/06/18 22:54 Respiratory Rate 14 07/06/18 22:54 Blood Pressure 62/24 L 07/06/18 22:54 O2 Sat by Pulse Oximetry (%) 93 L 07/06/18 21:29 Findings/Remarks: Agree with above note from resident team Labs: CBC, BMP 07/06/18 05:30 07/06/18 18:00
--- NOTE | 2018-07-06 23:32 | PN ---
Progress Note (short form) - Note Progress Note: Rapid response called at 11 pm, ROSC unaible to be obtained after following ACLS protocol. Patient was examined. Patient unresponsive, even to painful stimuli. Pupils fixed & non reactive. Patient has no spontaneous breathing, no heart sounds or breath sounds. No carotid or femoral pulses present. No heart sounds or breath sounds heard. Time of 11: 17 pm on 07/06/[address] Rapp. Family notified by Dr. Ingrid Gloria services offered to family
--- NOTE | 2018-07-06 23:49 | PROC ---
Intubation - Intubation Reason for Intubation: Respiratory Failure Time of Intubation: 22:10 Intubation Method: nasotracheal Blade used: Glidescope Tube Size (cm): 7.5 Tube position confirmed by: Direct visualization, CO2 detector, Breath sounds Breath Sounds after Intubation: equal Post Intubation Xray: Yes (Patient coded before chest x-ray )
[2018-07-07 01:12] VITALS: BP 62/24; PULSE 56
[2018-07-07] MEDS ORDERED: ETOMIDATE 20 MG/10 ML AMPUL IVPUSH ONE (03:22)
[2018-07-07] MEDS ORDERED: ROCURONIUM BROMIDE 50 MG/5 ML VIAL IV ONE (03:22)
[2018-07-07] MEDS ORDERED: NOREPINEPHRINE BITARTRATE 8,000 MCG in DEXTROSE 5%-WATER - 492 ML IV SCH (03:30)
== END 2018-07-07 05:48 | disposition expired | DRG 853 ==
LOC: JER 11:42 → JERBED 07-03 00:48 → JICU 07-03 02:07
PROVIDERS: ADMIT Internal Medicine Pulmonary Disease; ATTEND Internal Medicine
PROC: 0DQE0ZZ Repair Large Intestine, Open Approach (ICD-10-PCS; 2018-07-03)
PROC: 0DNU0ZZ Release Omentum, Open Approach (ICD-10-PCS; 2018-07-03)
PROC: 05HM33Z Insertion of Infusion Device into Right Internal Jugular Vein, Percutaneous Approach (ICD-10-PCS; 2018-07-03)
PROC: B543ZZA Ultrasonography of Right Jugular Veins, Guidance (ICD-10-PCS; 2018-07-03)
PROC: 0D1L0Z4 Bypass Transverse Colon to Cutaneous, Open Approach (ICD-10-PCS; principal; 2018-07-03 11:00)
PROC: 5A1935Z Respiratory Ventilation, Less than 24 Consecutive Hours (ICD-10-PCS; 2018-07-06)
PROC: 0BH17EZ Insertion of Endotracheal Airway into Trachea, Via Natural or Artificial Opening (ICD-10-PCS; 2018-07-06)
DX: A41.9 Sepsis, unspecified organism (principal); R65.21 Severe sepsis with septic shock; J69.0 Pneumonitis due to inhalation of food and vomit; K63.1 Perforation of intestine (nontraumatic); J96.90 Respiratory failure, unspecified, unspecified whether with hypoxia or hypercapnia; C90.00 Multiple myeloma not having achieved remission; I47.1 Supraventricular tachycardia; K94.02 Colostomy infection; E03.9 Hypothyroidism, unspecified; I10 Essential (primary) hypertension; I48.0 Paroxysmal atrial fibrillation; Z79.01 Long term (current) use of anticoagulants; K21.9 Gastro-esophageal reflux disease without esophagitis; R29.6 Repeated falls; E11.9 Type 2 diabetes mellitus without complications; H54.40 Blindness, one eye, unspecified eye; E83.42 Hypomagnesemia; D64.9 Anemia, unspecified; Y83.8 Other surgical procedures as the cause of abnormal reaction of the patient, or of later complication, without mention of misadventure at the time of the procedure; K66.0 Peritoneal adhesions (postprocedural) (postinfection); E87.6 Hypokalemia
CPT/HCPCS: 31500; 36415; 36430; 36600; 71045-TC-FY; 71250-TC; 74018-TC-FY; 74176-TC; 80048; 80053; 81003; 82803; 82962; 83605; 83735; 84100; 84439; 84443; 84484; 85025; 85027; 85610; 85730; 86850; 86900; 86901; 86922; 87040; 87070; 87086; 87186; 87205; 87899; 93005; 93010; 93306-TC; 94002; 94640; 94660; 99285-25; J0131; J0282; J7030; P9038; P9047; P9058